=== PATIENT | female | born 1955 | race Hispanic/Latino ===

== ENCOUNTER 2016-10-28 11:10 | Emergency (ER) | payer BC ==
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
[2016-10-28 14:37] VITALS: BP 148/76
--- NOTE | 2016-10-28 15:20 | XRay Report ---
FINAL REPORT EXAM: XR WRIST 3 RT HISTORY: injury 1 month ago, pain and swelling now COMPARISONS: None. FINDINGS: Three views right wrist No bone lesion, periosteal reaction, or fracture. Mild widening of the scapholunate interval. IMPRESSION: Mild widening of the scapholunate interval, which may correspond to ligamentous injury.
== END 2016-10-28 16:26 | disposition home or self-care (01) ==
LOC: ED 11:10
DX: S63.91XA Sprain of unspecified part of right wrist and hand, initial encounter (principal); I10 Essential (primary) hypertension; G43.909 Migraine, unspecified, not intractable, without status migrainosus; F17.200 Nicotine dependence, unspecified, uncomplicated; Z86.19 Personal history of other infectious and parasitic diseases; Z91.048 Other nonmedicinal substance allergy status; X58.XXXA Exposure to other specified factors, initial encounter; Y93.89 Activity, other specified; Y92.89 Other specified places as the place of occurrence of the external cause; Y99.8 Other external cause status

== ENCOUNTER 2017-07-17 04:30 | Emergency (ER) | payer SELFPAY ==
--- NOTE | 2017-07-17 05:42 | XRay Report ---
FINAL REPORT EXAM: XR FOOT 3+V LT HISTORY: pain and swelling L foot/ankle TECHNIQUE: Three views of the left foot were submitted. FINDINGS: There is osteoporosis. There no evidence of fracture or dislocation. Is a very small posterior calcaneal spur. The soft tissues are unremarkable. IMPRESSION: No evidence of acute injury. Very small posterior calcaneal spur.
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
[2017-07-17] MEDS ORDERED: PERCOCET 5/325 PO ONE (07:33)
[2017-07-17 07:46] LABS: Basophils % (Auto) 0.3 % (0.0-1.8); Hematocrit 39.9 % (30.3-42.9); Hemoglobin 13.7 gm/dl (10.1-14.3); Lymphocytes # (Auto) 1.6 K/mm3 (1.2-5.4); Lymphocytes % (Auto) 12.8 % (13.4-35.0); Mean Corpuscular HGB Conc 34 % (30-34); Mean Corpuscular Hemoglobin 34 pg (28-32); Mean Corpuscular Volume 99 fl (79-97); Monocytes # (Auto) 0.9 K/mm3 (0.0-0.8); Monocytes % (Auto) 7.3 % (0.0-7.3); Platelet Count 143 K/mm3 (140-440); Red Blood Count 4.01 M/mm3 (3.65-5.03); Red Cell Distribution Width 12.6 % (13.2-15.2)
[2017-07-17 07:57] LABS: INR 0.95 (0.87-1.13)
[2017-07-17 07:58] LABS: Partial Thromboplastin Time 30.6 Sec. (24.2-36.6)
[2017-07-17 10:05] VITALS: BP 118/60
== END 2017-07-17 10:04 | disposition home or self-care (01) ==
LOC: ED 04:30
DX: L03.116 Cellulitis of left lower limb (principal); I10 Essential (primary) hypertension; G43.909 Migraine, unspecified, not intractable, without status migrainosus; F17.200 Nicotine dependence, unspecified, uncomplicated; Z88.8 Allergy status to other drugs, medicaments and biological substances
CPT/HCPCS: 36415; 85025; 85610; 85730; 99285

== ENCOUNTER 2018-01-18 01:45 | Emergency (ER) | payer SELFPAY ==
[2018-01-18 05:07] VITALS: BP 129/75
[2018-01-18] MEDS ORDERED: TORADOL IM ONE (06:12)
[2018-01-18] MEDS ORDERED: KEFLEX PO ONE (06:12)
[2018-01-18] MEDS ORDERED: BACTRIM DS PO ONE (06:12)
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
== END 2018-01-18 06:38 | disposition home or self-care (01) ==
LOC: ED 01:45
DX: L03.116 Cellulitis of left lower limb (principal); G89.29 Other chronic pain; M54.2 Cervicalgia; I10 Essential (primary) hypertension; G43.909 Migraine, unspecified, not intractable, without status migrainosus; F17.200 Nicotine dependence, unspecified, uncomplicated; Z86.19 Personal history of other infectious and parasitic diseases; Z91.041 Radiographic dye allergy status
CPT/HCPCS: 73620; 96372; 99283; J1885

== ENCOUNTER 2018-05-17 05:56 | Emergency (ER) | payer BC, OTHER ==
[2018-05-17 06:22] VITALS: BP 108/55
[2018-05-17 06:55] LABS: Bilirubin,Urine NEG (Negative); Blood,Urine MOD (Negative); Color,Urine Yellow (Yellow); Protein,Urine <15 mg/dL mg/dL (Negative); Urobilinogen,Urine < 2.0 mg/dL (<2.0)
[2018-05-17] MEDS ORDERED: ALUM-MAG HYDROX-SIMETH 200-200-20MG/5ML PO ONE (07:49)
[2018-05-17 07:55] LABS: Alanine Aminotransferase 8 units/L (7-56); Albumin 4.2 g/dL (3.9-5); BUN/Creatinine Ratio 20; Blood Urea Nitrogen 8 mg/dL (7-17); Calcium 8.4 mg/dL (8.4-10.2); Hemolysis Index 4
[2018-05-17 08:26] LABS: Basophils % (Auto) 0.5 % (0.0-1.8); Eosinophils # (Auto) 0.1 K/mm3 (0.0-0.4); Hematocrit 38.4 % (30.3-42.9); Lymphocytes # (Auto) 2.7 K/mm3 (1.2-5.4); Lymphocytes % (Auto) 38.8 % (13.4-35.0); Mean Corpuscular HGB Conc 34 % (30-34); Mean Corpuscular Volume 100 fl (79-97); Monocytes # (Auto) 0.4 K/mm3 (0.0-0.8); Platelet Count 175 K/mm3 (140-440); Red Blood Count 3.84 M/mm3 (3.65-5.03); Red Cell Distribution Width 12.8 % (13.2-15.2)
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
== END 2018-05-17 09:23 | disposition home or self-care (01) ==
LOC: ED 05:56
DX: K52.9 Noninfective gastroenteritis and colitis, unspecified (principal); G43.909 Migraine, unspecified, not intractable, without status migrainosus; I10 Essential (primary) hypertension; F17.200 Nicotine dependence, unspecified, uncomplicated; Z91.041 Radiographic dye allergy status
CPT/HCPCS: 36415; 80053; 81001; 85025; 99283

== ENCOUNTER 2018-10-26 10:01 | Emergency (ER) | payer BC ==
[2018-10-26] MEDS ORDERED: NORCO 10/325 PO ONE (12:56)
[2018-10-26 13:30] LABS: Basophils % (Auto) 0.3 % (0.0-1.8); Hematocrit 39.8 % (30.3-42.9); Hemoglobin 13.8 gm/dl (10.1-14.3); Lymphocytes # (Auto) 1.4 K/mm3 (1.2-5.4); Lymphocytes % (Auto) 13.9 % (13.4-35.0); Mean Corpuscular HGB Conc 35 % (30-34); Mean Corpuscular Volume 98 fl (79-97); Monocytes # (Auto) 0.8 K/mm3 (0.0-0.8); Monocytes % (Auto) 8.1 % (0.0-7.3); Platelet Count 171 K/mm3 (140-440); Red Blood Count 4.07 M/mm3 (3.65-5.03); Red Cell Distribution Width 12.7 % (13.2-15.2)
[2018-10-26 13:36] LABS: BUN/Creatinine Ratio 8; Blood Urea Nitrogen 5 mg/dL (7-17); Calcium 9.1 mg/dL (8.4-10.2); Hemolysis Index 16; Uric Acid 2.8 mg/dL (3.5-7.6)
[2018-10-26] MEDS ORDERED: CLEOCIN PO ONE (13:46)
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
[2018-10-26 14:12] VITALS: BP 145/80
== END 2018-10-26 14:12 | disposition home or self-care (01) ==
LOC: ED 10:01
DX: L03.115 Cellulitis of right lower limb (principal); I10 Essential (primary) hypertension; G43.909 Migraine, unspecified, not intractable, without status migrainosus; B19.20 Unspecified viral hepatitis C without hepatic coma; F17.200 Nicotine dependence, unspecified, uncomplicated; Z88.8 Allergy status to other drugs, medicaments and biological substances; Z79.899 Other long term (current) drug therapy
CPT/HCPCS: 36415; 80048; 82140; 84550; 85025; 99283

== ENCOUNTER 2019-06-04 18:42 | Emergency (ER) | payer BC ==
[2019-06-04 20:26] LABS: Basophils % (Auto) 0.4 % (0.0-1.8); Eosinophils # (Auto) 0.5 K/mm3 (0.0-0.4); Eosinophils % (Auto) 5.9 % (0.0-4.3); Hematocrit 34.2 % (30.3-42.9); Hemoglobin 11.8 gm/dl (10.1-14.3); Lymphocytes # (Auto) 2.5 K/mm3 (1.2-5.4); Lymphocytes % (Auto) 32.8 % (13.4-35.0); Mean Corpuscular HGB Conc 34 % (30-34); Mean Corpuscular Volume 97 fl (79-97); Monocytes # (Auto) 0.6 K/mm3 (0.0-0.8); Monocytes % (Auto) 7.8 % (0.0-7.3); Platelet Count 167 K/mm3 (140-440); Red Blood Count 3.51 M/mm3 (3.65-5.03); Red Cell Distribution Width 13.3 % (13.2-15.2)
[2019-06-04 20:44] LABS: BUN/Creatinine Ratio 12; Blood Urea Nitrogen 7 mg/dL (7-17); Calcium 8.9 mg/dL (8.4-10.2); Hemolysis Index 1
--- NOTE | 2019-06-04 21:26 | Emergency Department Report ---
Blank Doc - Documentation Documentation: 63-year-old female that presents with dark colored diarrhea and weakness. This initial assessment/diagnostic orders/clinical plan/treatment(s) is/are subject to change based on patient's health status, clinical progression and re- assessment by fellow clinical providers in the ED. Further treatment and workup at subsequent clinical providers discretion. Patient/guardians urged not to elope from the ED as their condition may be serious if not clinically assessed and managed. Initial orders include: 1- Patient sent to MAIN ED for further evaluation and treatment 2- labs 3- UA 4- XR and
[2019-06-04 22:00] LABS: Alanine Aminotransferase 16 units/L (7-56)
[2019-06-04 22:12] LABS: Bilirubin,Direct < 0.2 mg/dL (0-0.2); INR 1.09 (0.87-1.13)
[2019-06-04 22:22] LABS: Partial Thromboplastin Time 34.1 Sec. (24.2-36.6)
--- NOTE | 2019-06-04 22:27 | XRay Report ---
Abdominal radiograph series with PA chest radiograph INDICATION / CLINICAL INFORMATION: Generalized abdominal pain. Dark stools for 3 weeks. COMPARISON: None. FINDINGS: TUBES / LINES: None. BOWEL GAS PATTERN: The bowel gas pattern appears nonobstructive. ADDITIONAL FINDINGS: Evaluation of bony structures demonstrates no evidence of acute bony abnormality . The accompanying chest radiograph demonstrates no evidence of acute cardiopulmonary process. IMPRESSION: 1. No radiographic evidence of acute intra-abdominal process. Signer Name: Елена Estrada MD Signed: 06/04/2019 10:23 PM Workstation Name: [id number]
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
[2019-06-05 00:36] VITALS: BP 102/60
== END 2019-06-05 00:37 | disposition home or self-care (01) ==
LOC: ED 18:42
DX: K92.1 Melena (principal); R19.7 Diarrhea, unspecified; I10 Essential (primary) hypertension; G43.909 Migraine, unspecified, not intractable, without status migrainosus; Z98.890 Other specified postprocedural states; F17.200 Nicotine dependence, unspecified, uncomplicated; Z79.1 Long term (current) use of non-steroidal anti-inflammatories (NSAID); Z79.899 Other long term (current) drug therapy; Z91.048 Other nonmedicinal substance allergy status
CPT/HCPCS: 36415; 74022; 80048; 80076; 83690; 83735; 85025; 85610; 85730

== ENCOUNTER 2020-07-20 18:41 | Inpatient (IN) | payer BC ==
[2020-07-20] MEDS ORDERED: DEXTROSE 50% IN WATER (25GM) 50 ML SYRINGE IV ONE ×2 (19:19→19:20)
[2020-07-20] MEDS ORDERED: DEXTROSE 50% IN WATER (25GM) 50 ML VIAL IV ONE (19:22)
[2020-07-20] MEDS ORDERED: SODIUM CHLORIDE 0.9% 1000 ML IV SOLN IV ONE (19:23)
--- NOTE | 2020-07-20 19:30 | Emergency Department Report ---
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 ng/mL CK-MB (CK-2) Rel Index (0-4) Troponin T (0.00-0.029) ng/mL C-Reactive Protein (0.00-1.30) mg/dL Total Protein (6.3-8.2) g/dL Albumin (3.9-5) g/dL Albumin/Globulin Ratio % Procalcitonin 40.67 (<0.15) ng/mL TSH (0.270-4.200) mlU/mL Free T4 (0.76-1.46) ng/dL Arterial Blood Glucose (65-95) mg/dL Arterial Blood Ionized Calcium (4.6-5.3) mg/dL Urine Color (Yellow) Urine Turbidity (Clear) Urine pH (5.0-7.0) Ur Specific [place] (1.003-1.030) Urine Protein (Negative) mg/dL Urine Glucose (UA) (Negative) mg/dL Urine Ketones (Negative) mg/dL Urine Blood (Negative) Urine Nitrite (Negative) Urine Bilirubin (Negative) Urine Urobilinogen (<2.0) mg/dL Ur Leukocyte Esterase (Negative) Urine WBC (Auto) (0.0-6.0) /HPF Urine RBC (Auto) (0.0-6.0) /HPF U Epithel Cells (Auto) (0-13.0) /HPF Urine WBC Clumps /HPF Urine Mucus /HPF Urine Yeast (Budding) /HPF Urine Opiates Screen Urine Methadone Screen Ur Barbiturates Screen Ur Phencyclidine Scrn Ur Amphetamines Screen U Benzodiazepines Scrn Urine Cocaine Screen U Marijuana (THC) Screen Drugs of Abuse Note - EKG Data -: EKG Interpreted by Me EKG shows normal: sinus rhythm Rate: normal - Radiology Data Radiology results: report reviewed CHEST 1 VIEW INDICATION: hypothermia, ams. COMPARISON: 06/04/2019 FINDINGS: Support devices: None. Heart: Normal. Lungs/Pleura: There are diffuse reticular/interstitial opacities bilaterally. No pleural abnormality. IMPRESSION: 1. Diffuse reticular/interstitial opacities, new since the prior. These are nonspecific but could be seen in the setting of interstitial edema. Lower airways disease could have this appearance. Follow-up is recommended. CT HEAD WITHOUT CONTRAST INDICATION / CLINICAL INFORMATION: Altered mental status TECHNIQUE: All CT scans at this location are performed using CT dose reduction for [employer] by means of automated exposure control. COMPARISON: Head CT 11/17/2011 FINDINGS: HEMORRHAGE: No evidence of intracranial hemorrhage or extra-axial fluid collection. EXTRA-AXIAL SPACES: Cortical sulci, sylvian fissures and basilar cisterns have an unremarkable appearance. VENTRICULAR SYSTEM: The third and lateral ventricles are of normal size and configuration. CEREBRAL PARENCHYMA: There is a region of decreased brain parenchymal attenuation in the inferior lateral aspect of the right occipital lobe. This is a new finding compared to baseline study performed about 9 years prior to this examination. There is relative sparing of the adjacent cortex. This could represent an area of vasogenic edema and follow-up examination to include MRI brain without and with contrast is therefore advised. There is no significant mass effect associated with this finding. No additional areas of abnormal brain parenchymal attenuation are identified. MIDLINE SHIFT OR HERNIATION: There is no mass effect. CEREBELLUM / BRAINSTEM: Brainstem and cerebellum have an unremarkable appearance. MIDLINE STRUCTURES:No abnormalities of the pituitary gland or pineal region are identified. INTRACRANIAL VESSELS:No abnormalities are identified on this noncontrast head CT. ORBITS: visualized portions of the orbits have an unremarkable appearance. SOFT TISSUES of HEAD: No significant abnormality. CALVARIUM: Evaluation of bone windows reveals no abnormalities. PARANASAL SINUSES / MASTOID AIR CELLS: Visualized portions of the paranasal sinuses are free from inflammatory mucosal disease. Mastoid air cells are normally pneumatized. ADDITIONAL FINDINGS: None. IMPRESSION: 1. Small region of decreased brain parenchymal attenuation is observed along the inferolateral aspect of the right occipital lobe as described above. There is sparing of the adjacent cortex. This could represent an area of encephalomalacia but small area of vasogenic edema cannot be excluded and follow-up examination to include MRI brain without and with intravenous contrast is recommended. 2. No additional abnormalities on head CT without contrast. CT CERVICAL SPINE WITHOUT CONTRAST INDICATION / CLINICAL INFORMATION: ams, signs of head trauma. TECHNIQUE: Axial CT images were obtained through the cervical spine. Sagittal and coronal reformatted images were produced. All CT scans at this location are performed using CT dose reduction for ALARA by means of automated exposure control. COMPARISON: None available. FINDINGS: ALIGNMENT: Grade 1 spondylolisthesis is present at the C4-5 level. Milder grade 1 spondylolisthesis is present at the C7-T1 level. There is a kyphotic curvature in the cervical region. No additional abnormalities of alignment are identified. There is no indication of traumatic subluxation. VERTEBRAE: No indication of fracture or bone destruction DISC SPACES: Disc height is decreased at the 4 5, C5-6 and C6-7 levels. INDIVIDUAL LEVEL ANALYSIS: C2-3: Left worse than right facet arthropathy is noted. This is associated with moderate left C3 nerve root neuroforaminal C3-4: Left worse than right facet arthropathy is demonstrated. Central spinal canal and neuroforamina are adequately maintained. C4-5: Left worse than right facet arthropathy is noted. Degenerative spondylolisthesis is observed at this level. Moderate right-sided C5 nerve root neuroforaminal stenosis is evident. Central spinal canal and right C5 nerve root neuroforamina are adequately maintained. C5-6: Near complete loss of disc height is noted. Anterior osteophyte formation is observed. Mild posterior osteophyte is present. Vertebral arthropathy contributes to moderate bilateral foraminal narrowing at the C6 nerve root level. Central spinal canal is adequately maintained. C6-7: Advanced disc desiccation is noted. Bilateral uncovertebral arthropathy contributes to severe left-sided and moderate right-sided neuroforaminal stenosis at the C7 nerve root level. C7-T1: Lateral facet arthropathy is demonstrated. Grade 1 spondylolisthesis is observed. Central spinal canal remains adequate in size. Moderate bilateral neuroforaminal stenosis is evident. CRANIOCERVICAL JUNCTION:No significant abnormality. SPINAL CANAL: Central spinal canal is adequately maintained throughout. PARASPINAL SOFT TISSUES: No significant abnormality. LUNG APICES: Disc changes are present at both lung apices. In addition interstitial edema, infiltrate or fibrotic changes seen in the lateral aspect of the right upper lobe. IMPRESSION: 1. No indication of fracture or traumatic subluxation. 2. Widespread cervical spondylosis with multifocal neuroforaminal stenosis as described level by level above. - Medical Decision Making 65-year-old female presents to the hospital with alteration in mental status. states that patient has not had much p.o. intake for last several days and has not felt well since receiving her second Covid shot 2 days ago. Patient presents with signs of severe sepsis with hypotension, hypothermia as well as hypoglycemia. Patient received 1 amp of D50 and glucose appeared to be stable during ED stay. Patient not have response in blood pressure despite 30 mL/kg bolus of normal saline in therefore central line placed and Levophed initiated to maintain MAP greater than 65. Additional NS bolus orderd. Patient did receive ketamine and Versed in the ED for some mild sedation for cooperation of procedures. She also required supplemental nasal cannula oxygenation for hypoxia. Labs suggest acute renal failure secondary to dehydration, severe sepsis with septic shock secondary to UTI. Chest x-ray abnormalities also noted and therefore Covid order set also initiated. Patient placed in respiratory isolation until Covid can be ruled out. Decadron also provided for hypoxia. Case discussed with school coordinator who recommended 3 Amps of bicarb followed by bicarb drip for severe acidosis and acute renal failure. Case discussed with critical care attending who recommended aggressive continued IV hydration with normal saline due to significant dehydration. ID consult ordered. Cefepime provided for UTI. Cultures pending. Family updated about critical patient status and is currently a full code alternative contact provided by . Imaging results noted. Critical Care Time: Yes Critical care time in (mins) excluding proc time.: 90 Critical care attestation.: If time is entered above; I have spent that time in minutes in the direct care of this critically ill patient, excluding procedure time. ED Disposition Clinical Impression: Septic shock, Altered mental status, UTI (urinary tract infection), Lung infiltrate, Hypoxia, Metabolic acidosis, Acute renal failure, Dehydration, Elevated CK, Hypoglycemia, Hypothermia, Hyperkalemia Disposition: OP ADMIT IP TO THIS HOSP Is pt being admited?: Yes Condition: Stable Time of Disposition: 22:40 (Dr Olson/hosp)
[2020-07-20 19:54] LABS: Hemoglobin 12.6 gm/dl (10.1-14.3); Red Blood Count 3.77 M/mm3 (3.65-5.03)
[2020-07-20 19:55] LABS: Basophils % (Auto) 1.7 % (0.0-1.8); Eosinophils # (Auto) 0.3 K/mm3 (0.0-0.4); Eosinophils % (Auto) 1.8 % (0.0-4.3); Hematocrit 38.4 % (30.3-42.9); Lymphocytes # (Auto) 0.8 K/mm3 (1.2-5.4); Lymphocytes % (Auto) 4.4 % (13.4-35.0); Mean Corpuscular HGB Conc 33 % (30-34); Mean Corpuscular Volume 102 fl (79-97); Monocytes # (Auto) 0.4 K/mm3 (0.0-0.8); Monocytes % (Auto) 2.1 % (0.0-7.3); Platelet Count 189 K/mm3 (140-440); Red Cell Distribution Width 14.3 % (13.2-15.2)
[2020-07-20 19:56] LABS: Basophils # (Auto) 0.3 K/mm3 (0.0-0.1)
[2020-07-20 19:58] LABS: INR 1.72 (0.87-1.13); Partial Thromboplastin Time 33.7 Sec. (24.2-36.6)
[2020-07-20 20:13] LABS: Albumin 3.3 g/dL (3.9-5); Calcium 7.4 mg/dL (8.4-10.2)
[2020-07-20] MEDS ORDERED: KETAMINE 500 MG/5 ML VIAL MDV ONE (20:13)
[2020-07-20 20:18] LABS: Amphetamine Screen,Urine Negative; Cannabinoid Screen,Urine Negative; Cocaine Screen,Urine Negative; Methadone Screen,Urine Negative
[2020-07-20 20:20] LABS: Bilirubin,Urine NEG (Negative); Blood,Urine MOD (Negative); Color,Urine Yellow (Yellow); Mucus,Urine FEW /HPF; Urobilinogen,Urine < 2.0 mg/dL (<2.0)
[2020-07-20 20:23] LABS: Free T4 (Free Thyroxine) 0.87 ng/dL (0.76-1.46)
--- NOTE | 2020-07-20 20:24 | XRay Report ---
CHEST 1 VIEW INDICATION: hypothermia, ams. COMPARISON: 06/04/2019 FINDINGS: Support devices: None. Heart: Normal. Lungs/Pleura: There are diffuse reticular/interstitial opacities bilaterally. No pleural abnormality. IMPRESSION: 1. Diffuse reticular/interstitial opacities, new since the prior. These are nonspecific but could be seen in the setting of interstitial edema. Lower airways disease could have this appearance. Follow-u p is recommended. Signer Name: Jeff Davies MD Signed: 07/20/2020 8:19 PM Workstation Name: [id number]
[2020-07-20 20:34] LABS: Benzodiazepines Screen,Urine Positive; Opiate Screen,Urine Positive
[2020-07-20] MEDS ORDERED: KETAMINE 500 MG/5 ML VIAL MDV IV ONE (20:37)
[2020-07-20 20:38] LABS: WBC,Urine > 182.0 /HPF (0.0-6.0)
[2020-07-20] MEDS ORDERED: SODIUM CHLORIDE 0.9% 1000 ML 1,000 ML IV ONE ×2 (20:38→22:02)
[2020-07-20] MEDS ORDERED: LORazepam 2 MG/ML VIAL ONE (20:41)
[2020-07-20] MEDS ORDERED: CEFEPIME/NS 2 GM/100 ML 2 GM/100 ML BAG IV ONE (20:41)
[2020-07-20] MEDS ORDERED: SODIUM BICARB 8.4% 50 MEQ/50 ML SYRINGE IV ONE ×4 (20:48→21:47)
[2020-07-20] MEDS ORDERED: DEXTROSE 5% IN WATER 1,000 ML with SODIUM BICARBONATE 150 MEQ IV SCH (21:00)
[2020-07-20] MEDS ORDERED: MIDAZOLAM 5 MG/5 ML INJ MDV IV NR (21:00)
--- NOTE | 2020-07-20 21:25 | Event Note ---
Date: 07/20/[address] Ferro Patient presents with altered mental status and hypotension/shock Vitals and labs reviewed Suspect hypovolemia/dehydration is a component of the clinical picture + sepsis Recommend IV bicarb push 50 mEq 3 Start sodium bicarb drip 150 meq at 150 cc/h ( continue LR or NS until bicarb drip is available) Vasopressors prn to keep MAP > 65 Continue bloom, reportedly making urine Calcium gluconate 1g 1 Recheck ABG and BMP in 2 hours, further recommendations to be based on response to current management plan Blanca Orozco MD
[2020-07-20] MEDS ORDERED: CALCIUM GLUCONATE 1,000 MG in SODIUM CHLORIDE 0.9% 100 ML IV ONE (21:30)
--- NOTE | 2020-07-20 21:33 | Cat Scan Report ---
CT HEAD WITHOUT CONTRAST INDICATION / CLINICAL INFORMATION: Altered mental status TECHNIQUE: All CT scans at this location are performed using CT dose reduction for [employer] by means of automated e xposure control. COMPARISON: Head CT 11/17/2011 FINDINGS: HEMORRHAGE: No evidence of intracranial hemorrhage or extra-axial fluid collection. EXTRA-AXIAL SPACES: Cortical sulci, sylvian fissures and basilar cisterns have an unremarkable appear ance. VENTRICULAR SYSTEM: The third and lateral ventricles are of normal size and configuration. CEREBRAL PARENCHYMA: There is a region of decreased brain parenchymal attenuation in the inferior lat eral aspect of the right occipital lobe. This is a new finding compared to baseline study performed a bout 9 years prior to this examination. There is relative sparing of the adjacent cortex. This could represent an area of vasogenic edema and follow-up examination to include MRI brain without and with contrast is therefore advised. There is no significant mass effect associated with this finding. No a dditional areas of abnormal brain parenchymal attenuation are identified. MIDLINE SHIFT OR HERNIATION: There is no mass effect. CEREBELLUM / BRAINSTEM: Brainstem and cerebellum have an unremarkable appearance. MIDLINE STRUCTURES:No abnormalities of the pituitary gland or pineal region are identified. INTRACRANIAL VESSELS:No abnormalities are identified on this noncontrast head CT. ORBITS: visualized portions of the orbits have an unremarkable appearance. SOFT TISSUES of HEAD: No significant abnormality. CALVARIUM: Evaluation of bone windows reveals no abnormalities. PARANASAL SINUSES / MASTOID AIR CELLS: Visualized portions of the paranasal sinuses are free from inf lammatory mucosal disease. Mastoid air cells are normally pneumatized. ADDITIONAL FINDINGS: None. IMPRESSION: 1. Small region of decreased brain parenchymal attenuation is observed along the inferolateral aspect of the right occipital lobe as described above. There is sparing of the adjacent cortex. This could represent an area of encephalomalacia but small area of vasogenic edema cannot be excluded and follow -up examination to include MRI brain without and with intravenous contrast is recommended. 2. No additional abnormalities on head CT without contrast. Signer Name: Nacho Underwood MD Signed: 07/20/2020 9:28 PM Workstation Name: [id number]
[2020-07-20] MEDS: NORepinephrine/NS 4 MG-250 ML 4 MG/250 ML BAG IV SCH (21:38)
--- NOTE | 2020-07-20 21:38 | Cat Scan Report ---
CT CERVICAL SPINE WITHOUT CONTRAST INDICATION / CLINICAL INFORMATION: ams, signs of head trauma. TECHNIQUE: Axial CT images were obtained through the cervical spine. Sagittal and coronal reformatted images wer e produced. All CT scans at this location are performed using CT dose reduction for [employer] by means of automated exposure control. COMPARISON: None available. FINDINGS: ALIGNMENT: Grade 1 spondylolisthesis is present at the C4-5 level. Milder grade 1 spondylolisthesis i s present at the C7-T1 level. There is a kyphotic curvature in the cervical region. No additional abn ormalities of alignment are identified. There is no indication of traumatic subluxation. VERTEBRAE: No indication of fracture or bone destruction DISC SPACES: Disc height is decreased at the 4 5, C5-6 and C6-7 levels. INDIVIDUAL LEVEL ANALYSIS: C2-3: Left worse than right facet arthropathy is noted. This is associated with moderate left C3 nerv e root neuroforaminal C3-4: Left worse than right facet arthropathy is demonstrated. Central spinal canal and neuroforamina are adequately maintained. C4-5: Left worse than right facet arthropathy is noted. Degenerative spondylolisthesis is observed at this level. Moderate right-sided C5 nerve root neuroforaminal stenosis is evident. Central spinal ca nal and right C5 nerve root neuroforamina are adequately maintained. C5-6: Near complete loss of disc height is noted. Anterior osteophyte formation is observed. Mild pos terior osteophyte is present. Vertebral arthropathy contributes to moderate bilateral foraminal narro wing at the C6 nerve root level. Central spinal canal is adequately maintained. C6-7: Advanced disc desiccation is noted. Bilateral uncovertebral arthropathy contributes to severe l eft-sided and moderate right-sided neuroforaminal stenosis at the C7 nerve root level. C7-T1: Lateral facet arthropathy is demonstrated. Grade 1 spondylolisthesis is observed. Central spin al canal remains adequate in size. Moderate bilateral neuroforaminal stenosis is evident. CRANIOCERVICAL JUNCTION:No significant abnormality. SPINAL CANAL: Central spinal canal is adequately maintained throughout. PARASPINAL SOFT TISSUES: No significant abnormality. LUNG APICES: Disc changes are present at both lung apices. In addition interstitial edema, infiltrate or fibrotic changes seen in the lateral aspect of the right upper lobe. IMPRESSION: 1. No indication of fracture or traumatic subluxation. 2. Widespread cervical spondylosis with multifocal neuroforaminal stenosis as described level by tor guthrie above. Signer Name: Nacho Underwood MD Signed: 07/20/2020 9:34 PM Workstation Name: [id number]
[2020-07-20] MEDS ORDERED: dexAMETHasone 4 MG/ML VIAL IV ONE (22:00)
[2020-07-20] MEDS ORDERED: ACETAMINOPHEN 325 MG TAB PO PRN (22:51)
[2020-07-20] MEDS ORDERED: ACETAMINOPHEN 325 MG/10.15 ML ORAL LIQD UNIT DOSE FEEDTUBE PRN (22:51)
[2020-07-20] MEDS ORDERED: HYDROmorphone 1 MG/1 ML INJ IV PRN (22:51)
[2020-07-20] MEDS ORDERED: METOCLOPRAMIDE 10 MG/2 ML INJ IV PRN (22:51)
[2020-07-20] MEDS ORDERED: ONDANSETRON 4 MG/2 ML INJ IV PRN (22:51)
[2020-07-20] MEDS ORDERED: VANCOMYCIN 1,000 MG in SODIUM CHLORIDE 0.9% 500 ML 500 ML IV ONE (22:51)
[2020-07-20 22:55] LABS: C-Reactive Protein 37.9 mg/dL (0.00-1.30)
[2020-07-20] MEDS ORDERED: CEFEPIME/NS 2 GM/100 ML 2 GM/100 ML BAG IV SCH (23:00)
[2020-07-20] MEDS ORDERED: D5W/0.9% NACL 1,000 ML IV SCH (23:00)
[2020-07-20] MEDS ORDERED: VANCOMYCIN PHARMACY TO DOSE IV SCH (23:00)
--- NOTE | 2020-07-20 23:10 | History and Physical Report ---
History of Present Illness Date of examination: 07/20/20 Date of admission: 07/20/20 Chief complaint: Altered mental status History of present illness: 65-year-old female with a past medical history hepatitis C, hypertension, migraines was brought to the hospital because of altered mental status. Patient is altered and unable to provide any history of present illness therefore for EMS history obtained from family as only information available at this time. patient has been progressively worsening since receiving her second Covid 2 days ago. Patient apparently has been having a fever on and off. She was found laying on the floor by family members today. Patient presents altered, agitated with bruising to head and torso. She is unable to answer questions or follow commands. Accu-Chek obtained after patient arrival was 55. Patient also noted to be hypothermic and hypotensive. The emergency room patient is found to have sepsis WBC 17.9 also D-dimer shows 2098, ABG shows pH is 7.016 PCO2 36.8 PO2 55.7 bicarb 9.2, lactic acid 3.[place] [address] BUN 108 and creatinine 7.7 and potassium 5.6 Patient is Yunior Diaz's [phone] cell number is on the chart. He also requests if we are unable to contact him that we contact the family friend friend Cecilia Bran at [phone] who can also help reach him if needed Past History Past Medical History: hepatitis, hypertension Medications and Allergies Allergies Allergy/AdvReac Type Severity Reaction Status Date / Time Iodine and Iodide Containing AdvReac Rash Verified 10/26/18 10:10 Produc Home Medications Medication Instructions Recorded Confirmed Last Taken Type Ondansetron [Zofran TAB] 4 mg PO Q8HR PRN #15 tablet 07/17/17 Unknown Rx Ibuprofen [Motrin 600 MG tab] 600 mg PO Q8H PRN #30 tablet 01/18/18 Unknown Rx Sulfamethoxazole/Trimethoprim 1 each PO BID 10 Days #20 tablet 01/18/18 Unknown Rx [Bactrim DS TAB] cephALEXin [Keflex] 500 mg PO Q12HR #20 capsule 01/18/18 Unknown Rx Famotidine [Pepcid] 20 mg PO BID #10 tablet 05/17/18 Unknown Rx Mag Hydrox/Aluminum Hyd/Simeth 15 ml PO QID #1 oral.susp 05/17/18 Unknown Rx [Maalox Advanced Suspension] Ondansetron [Zofran ODT TAB] 8 mg PO Q12HR #20 tab.rapdis 05/17/18 Unknown Rx Acetaminophen/Codeine [Tylenol 1 tab PO Q6H PRN #12 tab 10/26/18 Unknown Rx /Codeine # 3 tab] Clindamycin [Clindamycin CAP] 300 mg PO Q8H #21 cap 10/26/18 Unknown Rx Esomeprazole Magnesium [NexIUM] 40 mg PO QDAY 20 Days #20 06/04/19 Unknown Rx capsule.dr Active Meds: Active Medications Acetaminophen (Acetaminophen 325 Mg Tab) 650 mg PO Q6H PRN PRN Reason: Pain, Mild (1-3) Acetaminophen (Acetaminophen 325 Mg/10.15 Ml Oral Liqd Unit Dose) 650 mg FEEDTUBE Q6H PRN PRN Reason: Pain MILD(1-3)/Fever >100.5/HESS Albuterol/Ipratropium (Ipratropium/Albuterol Sulfate 3 Ml Ampul.Neb) 1 ampul IH Q6HRT HONEY Famotidine (Famotidine 20 Mg/2 Ml Inj) 20 mg IV BID HONEY Hydromorphone HCl (Hydromorphone 1 Mg/1 Ml Inj) 0.25 mg IV Q4H PRN PRN Reason: Pain, Moderate (4-6) Norepinephrine (Levophed Drip 4 Mg/Ns 250 Ml) 4 mg in 250 mls @ 7.5 mls/hr IV TITR HONEY; Protocol Last Titration: 07/20/20 22:21 Dose: 15 mcg/min, 56.25 mls/hr Documented by: Sodium Chloride (Nacl 0.9% 1000 Ml) 1,000 mls @ 250 mls/hr IV ONCE ONE Stop: 07/21/20 00:37 Last Admin: 07/20/20 21:57 Dose: 250 mls/hr Documented by: Sodium Bicarbonate 150 meq/ (Dextrose) 1,150 mls @ 150 mls/hr IV DIRECT HONEY Vancomycin HCl 1,000 mg/ (Sodium Chloride) 520 mls @ 333 mls/hr IV Q12HRT ONE; Protocol Stop: 07/21/20 00:24 Dextrose/Sodium Chloride (D5ns) 1,000 mls @ 100 mls/hr IV DIRECT HONEY Metoclopramide HCl (Metoclopramide 10 Mg/2 Ml Inj) 10 mg IV Q6H PRN PRN Reason: Nausea And Vomiting Midazolam HCl (Midazolam 5 Mg/5 Ml Inj Mdv) 1 mg IV ONCE NR Stop: 07/20/20 23:59 Sodium Chloride (Sodium Chloride 0.9% 10 Ml Flush Syringe) 10 ml IV BID HONEY Sodium Chloride (Sodium Chloride 0.9% 10 Ml Flush Syringe) 10 ml IV PRN PRN PRN Reason: LINE FLUSH Review of Systems Constitutional: fever, chills, fatigue, weakness, lethargy Psychiatric: confusion Exam - Constitutional Vitals: Temp Pulse Resp BP Pulse Ox 88.4 F L 76 12 77/55 92 07/20/20 19:52 07/20/20 22:19 07/20/20 22:19 07/20/20 22:19 07/20/20 22:19 General appearance: Present: severe distress - EENT Eyes: Present: PERRL ENT: hearing intact, clear oral mucosa - Neck Neck: Present: supple, normal ROM - Respiratory Respiratory effort: normal Respiratory: bilateral: diminished - Cardiovascular Heart Sounds: Present: S1 & S2. Absent: rub, click - Extremities Extremities: pulses symmetrical, No edema Peripheral Pulses: within normal limits - Abdominal General gastrointestinal: Present: soft, non-tender, non-distended, normal bowel sounds Female genitourinary: Present: normal - Integumentary Integumentary: Present: clear, warm, dry - Musculoskeletal Musculoskeletal: gait normal, strength equal bilaterally - Psychiatric Psychiatric: appropriate mood/affect, intact judgment & insight - Neurologic Neurologic: CNII-XII intact, moves all extremities HEART Score - HEART Score Troponin: Troponin T 0.026 ng/mL (0.00-0.029) 07/20/20 19:27 Results - Labs CBC & Chem 7: 07/20/20 19:27 07/20/20 21:59 Labs: Laboratory Last Values WBC 17.9 K/mm3 (4.5-11.0) H 07/20/20 19: RBC 3.77 M/mm3 (3.65-5.03) 07/20/20 19:27 Hgb 12.6 gm/dl (10.1-14.3) 07/20/20 19: Hct 38.4 % (30.3-42.9) 07/20/20 19:27 MCV 102 fl (79-97) H 07/20/20 19: MCH 33 pg (28-32) H 07/20/20 19: MCHC 33 % (30-34) 07/20/20 19: RDW 14.3 % (13.2-15.2) 07/20/20 19: Plt Count 189 K/mm3 (140-440) 07/20/20 19: Lymph % (Auto) 4.4 % (13.4-35.0) L 07/20/20 19: [place] % (Auto) 2.1 % (0.0-7.3) 07/20/20: Eos % (Auto) 1.8 % (0.0-4.3) 07/20/20: Baso % (Auto) 1.7 % (0.0-1.8) 07/20/20 19: Lymph # (Auto) 0.8 K/mm3 (1.2-5.4) L 07/20/20: [place] # (Auto) 0.4 K/mm3 (0.0-0.8) 07/20/20: Eos # (Auto) 0.3 K/mm3 (0.0-0.4) 07/20/20: Baso # (Auto) 0.3 K/mm3 (0.0-0.1) H 07/20/20 19: Seg Neutrophils % 90.0 % (40.0-70.0) H 07/20/20: Seg Neutrophils # 16.1 K/mm3 (1.8-7.7) H 07/20/20 19:27 PT 20.1 Sec. (12.2-14.9) H 07/20/20 19:32 INR 1.72 (0.87-1.13) H 07/20/20 19:32 APTT 33.7 Sec. (24.2-36.6) 07/20/20 19:32 D-Dimer 2098.49 ng/mlDDU (0-234) H 07/20/20 21:59 ABG pH 7.016 (7.320-7.450) L 07/20/20 19:59 POC ABG pCO2 36.8 mmHg (32.0-48.0) 07/20/20 19:59 POC ABG pO2 55.7 mmHg (83-108) L 07/20/20 19:59 POC ABG HCO3 9.2 07/20/20 19:59 ABG O2 Saturation 82.6 (0-100) 07/20/20 19:59 POC ABG Base Excess -20.9 07/20/20 19:59 ABG Hemoglobin 12.3 (12.0-17.5) 07/20/20 19:59 ABG Oxyhemoglobin 81.6 (94-98) L 07/20/20 19:59 ABG Methemoglobin 0.3 (0.0-1.5) 07/20/20 19:59 ABG Sodium 129.0 mmol/L (136.0-145.0) L 07/20/20 19:59 ABG Potassium 5.0 mmol/L (3.40-4.50) H 07/20/20 19:59 ABG Chloride 100.0 mmol/L (98-107) 07/20/20 19:59 ABG Glucose 157 mg/dL (65-95) H 07/20/20 19:59 Carboxyhemoglobin 0.9 (0.5-1.5) 07/20/20 19:59 FiO2 % 21.0 07/20/20 19:59 Sodium 130 mmol/L (137-145) L 07/20/20 19:27 Potassium 5.6 mmol/L (3.6-5.0) H 07/20/20 19:27 Chloride 84.4 mmol/L (98-107) L 07/20/20 19:27 Carbon Dioxide 14 mmol/L (22-30) L 07/20/20 19:27 Anion Gap 37 mmol/L 07/20/20 19:27 BUN 108 mg/dL (7-17) H 07/20/20 19:27 Creatinine 7.7 mg/dL (0.6-1.2) H 07/20/20 19:27 Estimated GFR 5 ml/min 07/20/20 19:27 BUN/Creatinine Ratio 14 % 07/20/20 19:27 Glucose 79 mg/dL (65-100) 07/20/20 21:59 POC Glucose 108 mg/dL (70-105) H 07/20/20 20:41 Lactic Acid 1.90 mmol/L (0.7-2.0) 07/20/20 21:59 Calcium 7.4 mg/dL (8.4-10.2) L 07/20/20 19:27 Ferritin 1648.0 ng/mL (10.0-200.0) H 07/20/20 21:59 Total Bilirubin 0.20 mg/dL (0.1-1.2) 07/20/20 19:27 AST 306 units/L (5-40) H 07/20/20 19:27 ALT 97 units/L (7-56) H 07/20/20 19:27 Alkaline Phosphatase 94 units/L (35-129) 07/20/20 19: Ammonia 50.0 umol/L (25-60) 07/20/20 19:27 Lactate Dehydrogenase 732 units/L (91-180) H 07/20/20 21:59 Total Creatine Kinase 66344 units/L (30-135) H 07/20/20 19:27 CK-MB (CK-2) 289.0 ng/mL (0.0-4.0) H 07/20/20 19:27 CK-MB (CK-2) Rel Index 2.0 (0-4) 07/20/20 19:27 Troponin T 0.026 ng/mL (0.00-0.029) 07/20/20 19:27 C-Reactive Protein 37.90 mg/dL (0.00-1.30) H 07/20/20 21:59 Total Protein 6.7 g/dL (6.3-8.2) 07/20/20 19: Albumin 3.3 g/dL (3.9-5) L 07/20/20 19:27 Albumin/Globulin Ratio 1.0 % 07/20/20 19:27 TSH 0.454 mlU/mL (0.270-4.200) 07/20/20 19: Free T4 0.87 ng/dL (0.76-1.46) 07/20/20 19:27 Arterial Blood Glucose 157 mg/dL (65-95) H 07/20/20 19:59 Arterial Blood Ionized Calcium 3.9 mg/dL (4.6-5.3) L 07/20/20 19:59 Urine Color Yellow (Yellow) 07/20/20 19:52 Urine Turbidity Turbid (Clear) 07/20/20 19:52 Urine pH 5.0 (5.0-7.0) 07/20/20 19:52 Ur Specific [place] 1.020 (1.003-1.030) 07/20/20 19:52 Urine Protein 100 mg/dl mg/dL (Negative) 07/20/20 19:52 Urine Glucose (UA) Neg mg/dL (Negative) 07/20/20 19:52 Urine Ketones Tr mg/dL (Negative) 07/20/20 19:52 Urine Blood Mod (Negative) 07/20/20 19:52 Urine Nitrite Neg (Negative) 07/20/20 19:52 Urine Bilirubin Neg (Negative) 07/20/20 19:52 Urine Urobilinogen < 2.0 mg/dL (<2.0) 07/20/20 19:52 Ur Leukocyte Esterase Lg (Negative) 07/20/20 19:52 Urine WBC (Auto) > 182.0 /HPF (0.0-6.0) H 07/20/20 19:52 Urine RBC (Auto) 31.0 /HPF (0.0-6.0) 07/20/20 19:52 U Epithel Cells (Auto) 1.0 /HPF (0-13.0) 07/20/20 19:52 Urine WBC Clumps 3+ /HPF 07/20/20 19:52 Urine Mucus Few /HPF 07/20/20 19:52 Urine Yeast (Budding) 3+ /HPF 07/20/20 19:52 Urine Opiates Screen Positive 07/20/20 19:52 Urine Methadone Screen Negative 07/20/20 19:52 Ur Barbiturates Screen Negative 07/20/20 19:52 Ur Phencyclidine Scrn Negative 07/20/20 19:52 Ur Amphetamines Screen Negative 07/20/20 19:52 U Benzodiazepines Scrn Positive 07/20/20 19:52 Urine Cocaine Screen Negative 07/20/20 19:52 U Marijuana (THC) Screen Negative 07/20/20 19:52 Drugs of Abuse Note Disclamer 07/20/20 19:52 Microbiology: Microbiology 07/20/20 19:32 Peripheral/Venous Blood Culture - Preliminary Culture in Progress 07/20/20 19:27 Peripheral/Venous Blood Culture - Preliminary Culture in Progress - Imaging and Cardiology Chest x-ray: image reviewed CT Scan - head: image reviewed Assessment and Plan VTE prophylaxis?: Chemical - Patient Problems (1) Acute renal failure Current Visit: Yes Status: Acute Plan to address problem: Admit the patient to the ICU. We put the patient on D5 normal saline at the rate of 100 cc/h. Avoid nephrotoxic drug. We will consult nephrology for further evaluation and treatment. Recheck CBC BMP in the morning (2) Elevated CK Current Visit: Yes Status: Acute Plan to address problem: Admit the patient to the ICU. We put the patient on D5 normal saline at the rate of 100 cc/h. Avoid nephrotoxic drug. We will recheck ck, CBC BMP in the morning (3) Hyperkalemia Current Visit: Yes Status: Acute Plan to address problem: Patient already get Kayexalate 30 g p.o. x1 dose. Will avoid nephrotoxic drug. Reconsult nephrology for evaluation recheck BMP in the morning (4) Hypoglycemia Current Visit: Yes Status: Acute Plan to address problem: We will put the patient on D5 normal saline at the rate of 100 cc/h. We will monitor the blood glucose every hour. Patient is on hypoglycemia protocol. Recheck BMP in the morning (5) Hypothermia Current Visit: Yes Status: Acute Plan to address problem: We will put the patient on warm blanket we monitor the temperature closely (6) Hypoxia Current Visit: Yes Status: Acute Plan to address problem: We will put the patient on 50% Ventimask. DuoNeb by nebulizer every 4 hours as needed. We will recheck the ABG in the morning we also consult critical care for evaluation. We also do a VQ scan rule out PE (7) Metabolic acidosis Current Visit: Yes Status: Acute Plan to address problem: Patient is on D5 normal saline at the rate of 100 cc/h. Patient is also on bicarb drip. Will consult critical care evaluation. Recheck BMP in the morning (8) UTI (urinary tract infection) Current Visit: Yes Status: Acute Plan to address problem: We will put the patient on cefepime 2 g IV every 8 hours. And vancomycin 1 g IV every 12 hours. We will do the blood culture urine culture and sputum culture. We we consulted infectious disease as well as critical care for evaluation. Recheck CBC BMP in the morning (9) Sepsis Current Visit: Yes Status: Acute Plan to address problem: We will put the patient on cefepime 2 g IV every 8 hours. And vancomycin 1 g IV every 12 hours. We will do the blood culture urine culture and sputum culture. We we consulted infectious disease as well as critical care for evaluation. Recheck CBC BMP in the morning (10) Acute metabolic encephalopathy Current Visit: Yes Status: Acute Plan to address problem: Admit the patient to the ICU. We will do MRI of the brain with and without contrast. We also put the patient on D5 normal saline at the rate of 100 cc/h . we will put the patient on cefepime 2 g IV every 8 hours. And vancomycin 1 g IV every 12 hours. We will do the blood culture urine culture and sputum culture. We we consulted infectious disease as well as critical care for evaluation. Recheck CBC BMP in the morning (11) Dehydration Current Visit: Yes Status: Acute Plan to address problem: D5 normal saline at the rate of 100 cc/h. Recheck BMP in the morning. (12) DVT prophylaxis Current Visit: Yes Status: Acute Plan to address problem: We will put the patient on heparin 5000 units subcu every 8 hours for DVT prophylaxis. Protonix 40 mils IV daily for GI prophylaxis. Patient is a full code
[2020-07-20] MEDS ORDERED: HEPARIN 5,000 UNIT/1 ML VIAL SUB-Q NR (23:30)
[2020-07-20] MEDS ORDERED: VANCOMYCIN/NS 1 GM/250 ML 1 GM/250 ML BAG IV ONE (23:45)
[2020-07-20] MEDS ORDERED: SODIUM POLYSTYRENE 15 GM/60 ML ORAL LIQD PO ONE (23:56)
[2020-07-20] MEDS ORDERED: PANTOPRAZOLE 40 MG INJ IV ONE (23:57)
--- NOTE | 2020-07-21 00:06 | Event Note ---
Date: 07/21/20 Labs not back yet. Called ER. Collection pending.
[2020-07-21 00:08] LABS: Calcium 6.3 mg/dL (8.4-10.2)
[2020-07-21] MEDS: FAMOTIDINE 20 MG/2 ML INJ IV SCH ×2 (00:22→10:41)
--- NOTE | 2020-07-21 00:29 | Event Note ---
Date: 07/21/20 Repeat ABG reviewed. Bicarb improved and K within acceptable range. Continue IVF with bicarb fluids. Kayexalate MO x 1 ordered. Repeat BMP in 4 hours. Please call and notify if bicarb declines or K rises. Blanca Orozco MD
[2020-07-21] MEDS ORDERED: DEXTROSE 50% IN WATER (25GM) 50 ML VIAL IV ONE (01:11)
[2020-07-21] MEDS ORDERED: DEXTROSE 50% IN WATER (25GM) 50 ML SYRINGE IV ONE ×2 (01:11→02:00)
[2020-07-21] MEDS: IPRATROPIUM/ALBUTEROL SULFATE 3 ML AMPUL.NEB IH SCH ×5 (01:28→21:06)
[2020-07-21] MEDS: LORazepam 2 MG/ML VIAL IV PRN ×3 (02:12→21:48)
[2020-07-21] MEDS ORDERED: PANTOPRAZOLE 40 MG INJ IV ONE (03:00)
[2020-07-21] MEDS ORDERED: SODIUM BICARBONATE 150 MEQ in DEXTROSE 5% IN WATER 1,000 ML IV SCH (03:00)
[2020-07-21] MEDS ORDERED: VANCOMYCIN/NS 1 GM/250 ML 1 GM/250 ML BAG IV ONE (03:30)
[2020-07-21] MEDS: NORepinephrine/NS 4 MG-250 ML 4 MG/250 ML BAG IV SCH (06:00)
[2020-07-21 07:03] LABS: Hemoglobin 11.7 gm/dl (10.1-14.3); Mean Corpuscular HGB Conc 33 % (30-34); Mean Corpuscular Volume 100 fl (79-97); Platelet Count 168 K/mm3 (140-440); Red Blood Count 3.52 M/mm3 (3.65-5.03); Red Cell Distribution Width 13.8 % (13.2-15.2)
[2020-07-21 07:14] LABS: Calcium 6.5 mg/dL (8.4-10.2)
[2020-07-21] MEDS ORDERED: INSULIN REGULAR, HUMAN 100 UNITS/1 ML SUB-Q NR (08:17)
[2020-07-21] MEDS ORDERED: DEXTROSE 50% IN WATER (25GM) 50 ML SYRINGE IV NR (08:17)
[2020-07-21] MEDS ORDERED: CALCIUM GLUCONATE 1,000 MG in SODIUM CHLORIDE 0.9% 100 ML IV ONE (09:00)
--- NOTE | 2020-07-21 09:00 | Consultation ---
History of Present Illness - Reason for Consult Consult date: 07/21/20 acute renal failure, hyperkalemia, metabolic acidosis - History of Present Illness History obtained from records due to mental status Mrs. Diaz is a 65-year-old female with a past medical history hepatitis C, hypertension, migraines was brought to the hospital because of altered mental status. Patient is altered and unable to provide any history of present illness therefore for EMS history obtained from family as only information available at this time. Patient has been progressively worsening since receiving her second Covid 2 days ago. Patient apparently has been having a fever on and off. She was found laying on the floor by family members today. Patient presents altered, agitated with bruising to head and torso. She is unable to answer questions or follow commands. Accu-Chek obtained after patient arrival was 55. Patient also noted to be hypothermic and hypotensive. The emergency room patient is found to have sepsis WBC 17.9 also D-dimer shows 2098, ABG shows pH is 7.016 PCO2 36.8 PO2 55.7 bicarb 9.2, lactic acid 3.[place] [address] BUN 108 and creatinine 7.7 and potassium 5.6 Past History Past Medical History: hepatitis, hypertension Medications and Allergies Allergies Allergy/AdvReac Type Severity Reaction Status Date / Time Iodine and Iodide Containing AdvReac Rash Verified 10/26/18 10:10 Produc Home Medications Medication Instructions Recorded Confirmed Last Taken Type Ondansetron [Zofran TAB] 4 mg PO Q8HR PRN #15 tablet 07/17/17 Unknown Rx Ibuprofen [Motrin 600 MG tab] 600 mg PO Q8H PRN #30 tablet 01/18/18 Unknown Rx Sulfamethoxazole/Trimethoprim 1 each PO BID 10 Days #20 tablet 01/18/18 Unknown Rx [Bactrim DS TAB] cephALEXin [Keflex] 500 mg PO Q12HR #20 capsule 01/18/18 Unknown Rx Famotidine [Pepcid] 20 mg PO BID #10 tablet 05/17/18 Unknown Rx Mag Hydrox/Aluminum Hyd/Simeth 15 ml PO QID #1 oral.susp 05/17/18 Unknown Rx [Maalox Advanced Suspension] Ondansetron [Zofran ODT TAB] 8 mg PO Q12HR #20 tab.rapdis 05/17/18 Unknown Rx Acetaminophen/Codeine [Tylenol 1 tab PO Q6H PRN #12 tab 10/26/18 Unknown Rx /Codeine # 3 tab] Clindamycin [Clindamycin CAP] 300 mg PO Q8H #21 cap 10/26/18 Unknown Rx Esomeprazole Magnesium [NexIUM] 40 mg PO QDAY 20 Days #20 06/04/19 Unknown Rx capsule.dr Active Meds: Active Medications Acetaminophen (Acetaminophen 325 Mg/10.15 Ml Oral Liqd Unit Dose) 650 mg FEEDTUBE Q6H PRN PRN Reason: Pain MILD(1-3)/Fever >100.5/HESS Al Hydrox/Mg Hydrox/Simethicone (Alum-Mag Hydroxide-Simethicone [phone]/5ml Oral Liqd 30 Ml) 15 ml PO QID HONEY Albuterol/Ipratropium (Ipratropium/Albuterol Sulfate 3 Ml Ampul.Neb) 1 ampul IH Q6HRT HONEY Last Admin: 07/21/20 07:53 Dose: 1 ampul Documented by: Dextrose (Dextrose 50% In Water (25gm) 50 Ml Syringe) 50 ml IV ONCE NR; Protocol Stop: 07/21/20 10:00 Famotidine (Famotidine 20 Mg/2 Ml Inj) 20 mg IV QAM OHNEY Last Admin: 07/21/20 00:22 Dose: 20 mg Documented by: Heparin Sodium (Porcine) (Heparin 5,000 Unit/1 Ml Vial) 5,000 unit SUB-Q PREOP NR Stop: 07/21/20 23:29 Heparin Sodium (Porcine) (Heparin 5,000 Unit/1 Ml Vial) 5,000 unit SUB-Q Q12HR HONEY Hydromorphone HCl (Hydromorphone 1 Mg/1 Ml Inj) 0.25 mg IV Q4H PRN PRN Reason: Pain, Moderate (4-6) Last Admin: 07/21/20 01:47 Dose: 0.25 mg Documented by: Norepinephrine (Levophed Drip 4 Mg/Ns 250 Ml) 4 mg in 250 mls @ 7.5 mls/hr IV TITR HONEY; Protocol Last Admin: 07/21/20 06:00 Dose: 6 mcg/min, 22.5 mls/hr Documented by: Dextrose/Sodium Chloride (D5ns) 1,000 mls @ 100 mls/hr IV DIRECT HONEY Last Admin: 07/21/20 02:13 Dose: 100 mls/hr Documented by: Sodium Bicarbonate 150 meq/ (Dextrose) 1,150 mls @ 100 mls/hr IV DIRECT HONEY Stop: 07/21/20 14:29 Last Admin: 07/21/20 03:17 Dose: 100 mls/hr Documented by: Cefepime HCl (Cefepime/Ns 2 Gm/100 Ml) 2 gm in 100 mls @ 200 mls/hr IV Q24HR HONEY; Protocol Calcium Gluconate 1,000 mg/ (Sodium Chloride) 110 mls @ 330 mls/hr IV ONCE ONE Stop: 07/21/20 09:19 Insulin Human Regular (Insulin Regular, Human 100 Units/1 Ml) 10 units SUB-Q ONCE NR Stop: 07/21/20 09:30 Lorazepam (Lorazepam 2 Mg/Ml Vial) 2 mg IV Q4H PRN PRN Reason: Agitation Last Admin: 07/21/20 02:12 Dose: 2 mg Documented by: Metoclopramide HCl (Metoclopramide 10 Mg/2 Ml Inj) 5 mg IV Q6H PRN PRN Reason: Nausea And Vomiting Ondansetron HCl (Ondansetron 4 Mg/2 Ml Inj) 4 mg IV Q8H PRN PRN Reason: Nausea And Vomiting Sodium Chloride (Sodium Chloride 0.9% 10 Ml Flush Syringe) 10 ml IV BID HONEY Sodium Chloride (Sodium Chloride 0.9% 10 Ml Flush Syringe) 10 ml IV PRN PRN PRN Reason: LINE FLUSH Sodium Polystyrene Sulfonate (Sodium Polystyrene 15 Gm/60 Ml Oral Liqd) 15 gm TN QDAY [facility] Review of Systems ROS unobtainable: due to mental status Exam - Vital Signs Vital signs: Vital Signs Temp Pulse Resp BP 86 F L 72 32 H 106/79 07/20/20 18:54 07/20/20 18:54 07/20/20 18:54 07/20/20 18:54 - General Appearance General appearance: well-developed, frail EENT: ATNC Respiratory: Other (isolation stethoscope not available iin room) Heart: regular (per monitor) Gastrointestinal: Absent: tenderness, distended Integumentary: warm and dry Neurologic: other (somonolent) Musculoskeletal: Present: other (no edema) Results - Lab Results 07/21/20 04:00 07/21/20 04:00 Most recent lab results ABG pH 7.174 (7.320-7.450) L 07/21/20 23:59 ABG O2 Saturation 92.1 (0-100) 07/21/20 23:59 Calcium 6.5 mg/dL (8.4-10.2) L 07/21/20 04:00 Assessment and Plan Impression: * Nonoliguric DOREEN secondary to multifactorial etiologies: prerenal component due to volume depletion vs ATN (sepsis) * Acute hypoxic respiratory failure * Sepsis * Acute encephelopathy * Uremia * Hyperkalemia * Acidosis, respiratory w/ inadequate metabolic compensation * r/o COVID 19 infection Plan: * Agree with volume replacement - NS bolus x 2 ordered by CCM (SBP in 70s upon my exam) * Continue bicarb gtt * Broad spectrum abx * Await blood/urine cultures * Pressors prn to maintain MAP>65 * Repeat BMP at noon today * No acute indication for renal replacement therapy at this time * Dose medications for renal function
[2020-07-21] MEDS ORDERED: SODIUM CHLORIDE 0.9% 1000 ML 2,000 ML IV ONE ×3 (09:13→17:08)
[2020-07-21] MEDS ORDERED: SODIUM CHLORIDE 0.9% 1000 ML 2,000 ML ONE (09:13)
[2020-07-21] MEDS ORDERED: VASOPRESSIN 20 UNIT in SODIUM CHLORIDE 0.9% 100 ML IV SCH (10:00)
[2020-07-21] MEDS ORDERED: SODIUM POLYSTYRENE 15 GM/60 ML ORAL LIQD PR SCH (10:00)
[2020-07-21] MEDS ORDERED: ALUM-MAG HYDROXIDE-SIMETHICONE 200-200-20MG/5ML ORAL LIQD 30 ML PO SCH (10:00)
[2020-07-21] MEDS ORDERED: NON-FORMULARY EACH (Esomeprazole Magnesium [Nexium] 40 MG Capsule.Dr) PO SCH (10:00)
[2020-07-21] MEDS: CEFEPIME/NS 2 GM/100 ML 2 GM/100 ML BAG IV SCH (10:40)
[2020-07-21] MEDS: HEPARIN 5,000 UNIT/1 ML VIAL SUB-Q SCH ×2 (10:43→21:39)
--- NOTE | 2020-07-21 11:25 | Electrocardiograph Report ---
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
--- NOTE | 2020-07-21 11:33 | Consultation ---
History of Present Illness Consult date: 07/21/20 Requesting physician: NEELA CARBAJAL Reason for consult: other (Sepsis/Volume depletion) History of present illness: 65 y/o female presented to the ED with hypotension, acute renal failure, hyperkalemia and altered mental state. Patient also found to have significant UA and started on broad spectrum abx therapy. Patient not able to give any history. Per EMS patient was found on floor by family members. C-spine was cleared. Per report, patient had covid vaccine several days ago and family feels she has been sick since then. No one knows which vaccine she got. Spoke with ED physician on phone last night. This am she is on bipap but more awake, still not follow commands. She got maintenance fluids but no boluses from the ED nor once she got to the floor. Nursing emptied out 300cc's of urine this am. pH is better but maxed on levo and now on vasopressin. Past History Past Medical History: hepatitis, hypertension Medications and Allergies Allergies Allergy/AdvReac Type Severity Reaction Status Date / Time Iodine and Iodide Containing AdvReac Rash Verified 10/26/18 10:10 Produc Home Medications Medication Instructions Recorded Confirmed Last Taken Type Ondansetron [Zofran TAB] 4 mg PO Q8HR PRN #15 tablet 07/17/17 Unknown Rx Ibuprofen [Motrin 600 MG tab] 600 mg PO Q8H PRN #30 tablet 01/18/18 Unknown Rx Sulfamethoxazole/Trimethoprim 1 each PO BID 10 Days #20 tablet 01/18/18 Unknown Rx [Bactrim DS TAB] cephALEXin [Keflex] 500 mg PO Q12HR #20 capsule 01/18/18 Unknown Rx Famotidine [Pepcid] 20 mg PO BID #10 tablet 05/17/18 Unknown Rx Mag Hydrox/Aluminum Hyd/Simeth 15 ml PO QID #1 oral.susp 05/17/18 Unknown Rx [Maalox Advanced Suspension] Ondansetron [Zofran ODT TAB] 8 mg PO Q12HR #20 tab.rapdis 05/17/18 Unknown Rx Acetaminophen/Codeine [Tylenol 1 tab PO Q6H PRN #12 tab 10/26/18 Unknown Rx /Codeine # 3 tab] Clindamycin [Clindamycin CAP] 300 mg PO Q8H #21 cap 06/30/19 Unknown Rx Esomeprazole Magnesium [NexIUM] 40 mg PO QDAY 20 Days #20 06/04/19 Unknown Rx capsule.dr Active Meds: Active Medications Acetaminophen (Acetaminophen 325 Mg/10.15 Ml Oral Liqd Unit Dose) 650 mg F EEDTUBE Q6H PRN PRN Reason: Pain MILD(1-3)/Fever >100.5/HESS Albuterol/Ipratropium (Ipratropium/Albuterol Sulfate 3 Ml Ampul.Neb) 1 ampul IH Q6HRT HONEY Last Admin: 07/21/20 07:53 Dose: 1 ampul Documented by: Famotidine (Famotidine 20 Mg/2 Ml Inj) 20 mg IV QAM HONEY Last Admin: 07/21/20 10:41 Dose: 20 mg Documented by: Heparin Sodium (Porcine) (Heparin 5,000 Unit/1 Ml Vial) 5,000 unit SUB-Q PREOP NR Stop: 07/21/20 23:29 Heparin Sodium (Porcine) (Heparin 5,000 Unit/1 Ml Vial) 5,000 unit SUB-Q Q12HR HONEY Last Admin: 07/21/20 10:43 Dose: 5,000 unit Documented by: Norepinephrine (Levophed Drip 4 Mg/Ns 250 Ml) 4 mg in 250 mls @ 7.5 mls/hr IV TITR HONEY; Protocol Last Titration: 07/21/20 09:01 Dose: 30 mcg/min, 112.5 mls/hr Documented by: Sodium Bicarbonate 150 meq/ (Dextrose) 1,150 mls @ 100 mls/hr IV DIRECT HONEY Stop: 07/21/20 14:29 Last Admin: 07/21/20 03:17 Dose: 100 mls/hr Documented by: Cefepime HCl (Cefepime/Ns 2 Gm/100 Ml) 2 gm in 100 mls @ 200 mls/hr IV Q24HR HONEY; Protocol Last Admin: 07/21/20 10:40 Dose: 200 mls/hr Documented by: Vasopressin 20 unit/ Sodium (Chloride) 101 mls @ 9.09 mls/hr IV TITR HONEY; Protocol Last Admin: 07/21/20 09:53 Dose: 0.03 units/min, 9.09 mls/hr Documented by: Sodium Chloride (Nacl 0.9% 1000 Ml) 2,000 mls @ 999 mls/hr IV ONCE ONE Stop: 07/21/20 12:34 Lorazepam (Lorazepam 2 Mg/Ml Vial) 2 mg IV Q4H PRN PRN Reason: Agitation Last Admin: 07/21/20 02:12 Dose: 2 mg Documented by: Metoclopramide HCl (Metoclopramide 10 Mg/2 Ml Inj) 5 mg IV Q6H PRN PRN Reason: Nausea And Vomiting Ondansetron HCl (Ondansetron 4 Mg/2 Ml Inj) 4 mg IV Q8H PRN PRN Reason: Nausea And Vomiting Sodium Chloride (Sodium Chloride 0.9% 10 Ml Flush Syringe) 10 ml IV BID [facility] Last Admin: 07/21/20 10:42 Dose: 10 ml Documented by: Sodium Chloride (Sodium Chloride 0.9% 10 Ml Flush Syringe) 10 ml IV PRN PRN PRN Reason: LINE FLUSH Sodium Polystyrene Sulfonate (Sodium Polystyrene 15 Gm/60 Ml Oral Liqd) 15 gm IA QDAY [facility] Last Admin: 07/21/20 10:44 Dose: 15 gm Documented by: Review of Systems ROS unobtainable: due to mental status Physical Examination Vital signs: Vital Signs Temp Pulse Resp BP 86 F L 72 32 H 106/79 07/20/20 18:54 07/20/20 18:54 07/20/20 18:54 07/20/20 18:54 Results - Laboratory Findings CBC and BMP: 07/21/20 04:00 07/21/20 09:00 ABG ABG pH 7.174 (7.320-7.450) L 07/21/20 23:59 POC ABG pCO2 41.9 mmHg (32.0-48.0) 07/21/20 23:59 POC ABG pO2 69.3 mmHg (83-108) L 07/21/20 23:59 POC ABG HCO3 15.1 07/21/20 23:59 ABG O2 Saturation 92.1 (0-100) 07/21/20 23:59 PT/INR, D-dimer PT 20.1 Sec. (12.2-14.9) H 07/20/20 19:32 INR 1.72 (0.87-1.13) H 07/20/20 19:32 D-Dimer 2098.49 ng/mlDDU (0-234) H 07/20/20 21:59 Abnormal lab findings: Abnormal Labs 07/20/20 07/20/20 07/20/20 19:20 19:27 19:27 WBC 17.9 H RBC MCV 102 H MCH 33 H Lymph % (Auto) 4.4 L Lymph # (Auto) 0.8 L Baso # (Auto) 0.3 H Seg Neutrophils % 90.0 H Seg Neutrophils # 16.1 H PT INR D-Dimer ABG pH POC ABG pO2 ABG Hemoglobin ABG Oxyhemoglobin ABG Sodium ABG Potassium ABG Glucose Sodium 130 L Potassium 5.6 H Chloride 84.4 L Carbon Dioxide 14 L BUN 108 H Creatinine 7.7 H Glucose POC Glucose 55 L Lactic Acid Calcium 7.4 L Ferritin AST 306 H ALT 97 H Ammonia Lactate Dehydrogenase Total Creatine Kinase CK-MB (CK-2) C-Reactive Protein Albumin 3.3 L Arterial Blood Glucose Arterial Blood Ionized Calcium Urine WBC (Auto) 07/20/20 07/20/20 07/20/20 19:27 19:27 19:32 WBC RBC MCV MCH Lymph % (Auto) Lymph # (Auto) Baso # (Auto) Seg Neutrophils % Seg Neutrophils # PT 20.1 H INR 1.72 H D-Dimer ABG pH POC ABG pO2 ABG Hemoglobin ABG Oxyhemoglobin ABG Sodium ABG Potassium ABG Glucose Sodium Potassium Chloride Carbon Dioxide BUN Creatinine Glucose POC Glucose Lactic Acid 3.10 H* Calcium Ferritin AST ALT Ammonia Lactate Dehydrogenase Total Creatine Kinase 04523 H CK-MB (CK-2) 289.0 H C-Reactive Protein Albumin Arterial Blood Glucose Arterial Blood Ionized Calcium Urine WBC (Auto) 07/20/20 07/20/20 07/20/20 19:52 19:59 20:41 WBC RBC MCV MCH Lymph % (Auto) Lymph # (Auto) Baso # (Auto) Seg Neutrophils % Seg Neutrophils # PT INR D-Dimer ABG pH 7.016 L POC ABG pO2 55.7 L ABG Hemoglobin ABG Oxyhemoglobin 81.6 L ABG Sodium 129.0 L ABG Potassium 5.0 H ABG Glucose 157 H Sodium Potassium Chloride Carbon Dioxide BUN Creatinine Glucose POC Glucose 108 H Lactic Acid Calcium Ferritin AST ALT Ammonia Lactate Dehydrogenase Total Creatine Kinase CK-MB (CK-2) C-Reactive Protein Albumin Arterial Blood Glucose 157 H Arterial Blood Ionized Calcium 3.9 L Urine WBC (Auto) > 182.0 H 07/20/20 07/20/20 07/20/20 21:59 21:59 21:59 WBC RBC MCV MCH Lymph % (Auto) Lymph # (Auto) Baso # (Auto) Seg Neutrophils % Seg Neutrophils # PT INR D-Dimer 2098.49 H ABG pH POC ABG pO2 ABG Hemoglobin ABG Oxyhemoglobin ABG Sodium ABG Potassium ABG Glucose Sodium Potassium Chloride Carbon Dioxide BUN Creatinine Glucose POC Glucose Lactic Acid Calcium Ferritin 1648.0 H AST ALT Ammonia Lactate Dehydrogenase 732 H Total Creatine Kinase CK-MB (CK-2) C-Reactive Protein 37.90 H Albumin Arterial Blood Glucose Arterial Blood Ionized Calcium Urine WBC (Auto) 07/20/20 07/21/20 07/21/20 23:35 01:56 04:00 WBC 15.1 H RBC 3.52 L MCV 100 H MCH 33 H Lymph % (Auto) Lymph # (Auto) Baso # (Auto) Seg Neutrophils % Seg Neutrophils # PT INR D-Dimer ABG pH POC ABG pO2 ABG Hemoglobin ABG Oxyhemoglobin ABG Sodium ABG Potassium ABG Glucose Sodium Potassium 5.8 H Chloride 95.4 L Carbon Dioxide 17 L BUN 100 H Creatinine 6.8 H Glucose 61 L POC Glucose 138 H Lactic Acid Calcium 6.3 L Ferritin AST ALT Ammonia Lactate Dehydrogenase Total Creatine Kinase CK-MB (CK-2) C-Reactive Protein Albumin Arterial Blood Glucose Arterial Blood Ionized Calcium Urine WBC (Auto) 07/21/20 07/21/20 07/21/20 04:00 05:24 06:06 WBC RBC MCV MCH Lymph % (Auto) Lymph # (Auto) Baso # (Auto) Seg Neutrophils % Seg Neutrophils # PT INR D-Dimer ABG pH POC ABG pO2 ABG Hemoglobin ABG Oxyhemoglobin ABG Sodium ABG Potassium ABG Glucose Sodium Potassium 6.1 H* Chloride 97.2 L Carbon Dioxide 21 L BUN 104 H Creatinine 6.7 H Glucose POC Glucose 121 H 124 H Lactic Acid Calcium 6.5 L Ferritin AST ALT Ammonia Lactate Dehydrogenase Total Creatine Kinase CK-MB (CK-2) C-Reactive Protein Albumin Arterial Blood Glucose Arterial Blood Ionized Calcium Urine WBC (Auto) 07/21/20 07/21/20 07/21/20 06:58 07:58 08:20 WBC RBC MCV MCH Lymph % (Auto) Lymph # (Auto) Baso # (Auto) Seg Neutrophils % Seg Neutrophils # PT INR D-Dimer ABG pH POC ABG pO2 ABG Hemoglobin ABG Oxyhemoglobin ABG Sodium ABG Potassium ABG Glucose Sodium Potassium Chloride Carbon Dioxide BUN Creatinine Glucose POC Glucose 128 H 133 H Lactic Acid Calcium Ferritin AST ALT Ammonia Lactate Dehydrogenase Total Creatine Kinase 92581 H CK-MB (CK-2) C-Reactive Protein Albumin Arterial Blood Glucose Arterial Blood Ionized Calcium Urine WBC (Auto) 07/21/20 07/21/20 07/21/20 09:15 09:31 10:09 WBC RBC MCV MCH Lymph % (Auto) Lymph # (Auto) Baso # (Auto) Seg Neutrophils % Seg Neutrophils # PT INR D-Dimer ABG pH 7.239 L POC ABG pO2 70.1 L ABG Hemoglobin 11.4 L ABG Oxyhemoglobin 92.6 L ABG Sodium 135.2 L ABG Potassium 5.1 H ABG Glucose 147 H Sodium Potassium Chloride Carbon Dioxide BUN Creatinine Glucose POC Glucose 129 H Lactic Acid Calcium Ferritin AST ALT Ammonia 24.0 L Lactate Dehydrogenase Total Creatine Kinase CK-MB (CK-2) C-Reactive Protein Albumin Arterial Blood Glucose 147 H Arterial Blood Ionized Calcium 3.4 L Urine WBC (Auto) 07/21/20 23:59 WBC RBC MCV MCH Lymph % (Auto) Lymph # (Auto) Baso # (Auto) Seg Neutrophils % Seg Neutrophils # PT INR D-Dimer ABG pH 7.174 L POC ABG pO2 69.3 L ABG Hemoglobin 11.9 L ABG Oxyhemoglobin 91.0 L ABG Sodium 134.0 L ABG Potassium 5.4 H ABG Glucose 60 L Sodium Potassium Chloride Carbon Dioxide BUN Creatinine Glucose POC Glucose Lactic Acid Calcium Ferritin AST ALT Ammonia Lactate Dehydrogenase Total Creatine Kinase CK-MB (CK-2) C-Reactive Protein Albumin Arterial Blood Glucose 60 L Arterial Blood Ionized Calcium 3.6 L Urine WBC (Auto) - Diagnostic Findings Chest x-ray: image reviewed Assessment and Plan 65 y/o female with altered mental state, hypotension, renal failure and electrolyte imbalance with UTI seen on urine analysis and presumptive sepsis with distributive shock. 1. Needs more fluid resuscitation. Ordered for 2 more liters of saline now and additional to be bolused after rounds today 2. Agree with broad spec abx therapy follow up on cultures of urine and blood 3. Currently on bipap but hopeful we can wean as tolerated given improvement in mental status. 4. Spoke with renal and they agree with more volume and chemical management of hyperkalemia 5. Given CXR appearance and no other imaging, will obtain 2D echo as well. her hypotension could be from sepsis but need to make sure cardiac function is ok. She may need inotropic help with pressor requirement does not improve. 6. Continue to assess volume throughout the day 7. CMP q6 hours to monitor sodium and other electrolytes 8. ordered picc but likely will not happen today. continue right femoral groin line. 9. Hold on feeds given her pressor requirement and bipap requirement 10. DVT and GI prophylaxis. Guarded prognosis. CCT 31 minutes.
[2020-07-21 12:33] LABS: Bilirubin,Urine NEG (Negative); Blood,Urine LG (Negative); Color,Urine Yellow (Yellow); Hyaline Casts,Urine 9 /LPF; Mucus,Urine FEW /HPF; Urobilinogen,Urine < 2.0 mg/dL (<2.0)
--- NOTE | 2020-07-21 12:51 | Progress Note ---
Assessment and Plan Assessment and plan: Sepsis -Presented with hypothermia, hypotension, metabolic acidosis, acute respiratory failure, tachycardia, UTI -COVID-19 PUI Per ED -ABX therapy -07/20 blood cultures and urine culture pending -07/20 urine analysis shows urinary tract infection -Infectious disease consulted, appreciate recommendations -2D echo pending COVID-19 PUI -Droplet/isolation precautions -ID and pulmonology consult -COVID-19 PCR pending -Abx per ID Urinary tract infection -Noted on UA -Antibiotic therapy Acute renal failure -Nephrology consulted, appreciate recommendations -Strict intake and output -Serial BMPs -Avoid nephrotoxic medications -Renally dose medications Rhabdomyolysis -S/p 3 units normal saline bolus in the emergency department -MIVF -Trend CK Hyperkalemia -Treated with insulin, D50, calcium gluconate and Kionex -Trend BMP Hypothermia -Jesus hugger as needed Acute respiratory failure -BiPAP therapy -ABGs as needed -Pulmonary hygiene -SPO2 monitoring Metabolic acidosis -Bicarb infusion -Routine ABGs Acute metabolic encephalopathy -CT head shows small region of diffuse brain parenchymal attenuation observed along with the inferolateral occipital lobe (?represents an area of encephalomalacia but small area of vasogenic edema not excluded, follow-up MRI brain with and without contrast) -Supportive care Hypotension -Vasopressor support for maps greater than 65 -MIVF in the ED, 4 L MIVF in the ICU Ground-level fall -C-spine shows no indication of fracture or traumatic subluxation, widespread cervical spondylosis with multifocal neuroforaminal stenosis -Supportive care Hypertension -Hold home antihypertensives in setting of hypotension -Blood pressure monitor per protocol Hepatitis C -Supportive care DVT/GI prophylaxis: Heparin subcu, SCDs to bilateral lower extremities while in bed, PPI Dispo: ICU CODE STATUS: DNR/AND The high probability of a clinically significant, sudden or life threatening deterioration of the [multi] system(s) required my full and direct attention, intervention and personal management. The aggregate critical care time was [40] minutes. This time is in addition to time spent performing reported procedures but includes the following: [x] Data Review and interpretation [x] Patient assessment and monitoring of vital signs [x] Documentation [x] Medication orders and management History Interval history: This is a 65-year-old female with hepatitis C, migraines and hypertension who had presented to the emergency department on 07/21 with altered mental status after being found on the floor by family members. Upon evaluation in the emergency department patient was found to be hypothermic and hypotensive with leukocytosis and acute kidney failure consistent with sepsis. Patient also had elevated D- dimer, metabolic encephalopathy, lactic acidosis, hyperkalemia and rhabdomyolysis. Patient was admitted to the hospital service with sepsis, UTI, DOREEN, rhabdomyolysis, acute respiratory failure, metabolic acidosis, acute metabolic encephalopathy. Nephrology, infectious disease and critical care co nsulted. Sepsis Urinary tract infection Acute renal failure Rhabdomyolysis Hyperkalemia Hypothermia Acute respiratory failure Metabolic acidosis Acute metabolic encephalopathy Hypertension Hepatitis C 07/21: Patient received a total of 4 L normal saline, was started on vasopressin and remains on BiPAP. Patient was on Levophed and D5 normal saline and a bicarbonate drip. D5 normal saline was discontinued. We will obtain a p.m. BMP and serial BMPs. Patient was contacted and the patient is now on AND/DNR. Hospitalist Physical - Constitutional Vitals: Temp Pulse Resp BP Pulse Ox 98.7 F 92 H 18 140/103 93 07/21/20 12:00 07/21/20 11:15 07/21/20 11:15 07/21/20 11:15 07/21/20 11:15 General appearance: Present: severe distress - EENT Eyes: Present: PERRL ENT: clear oral mucosa - Neck Neck: Present: normal ROM - Respiratory Respiratory effort: normal Respiratory: bilateral: diminished - Cardiovascular Rhythm: regular Heart Sounds: Present: S1 & S2. Absent: systolic murmur, diastolic murmur - Extremities Extremities: no ischemia, pulses intact, No edema, normal temperature, normal color, Full ROM Peripheral Pulses: within normal limits - Abdominal General gastrointestinal: soft, non-distended, normal bowel sounds - Integumentary Integumentary: Present: warm, dry - Neurologic Neurologic: moves all extremities - Allied Health Allied health notes reviewed: nursing, RT HEART Score - HEART Score Troponin: Troponin T 0.026 ng/mL (0.00-0.029) 07/20/20 19:27 Results - Labs CBC & Chem 7: 07/21/20 04:00 07/21/20 09:00 Labs: Laboratory Last Values WBC 15.1 K/mm3 (4.5-11.0) H 07/21/20 04:00 RBC 3.52 M/mm3 (3.65-5.03) L 07/21/20 04:00 Hgb 11.7 gm/dl (10.1-14.3) 07/21/20 04:00 Hct 35.0 % (30.3-42.9) 07/21/20 04:00 MCV 100 fl (79-97) H 07/21/20 04:00 MCH 33 pg (28-32) H 07/21/20 04:00 MCHC 33 % (30-34) 07/21/20 04:00 RDW 13.8 % (13.2-15.2) 07/21/20 04:00 Plt Count 168 K/mm3 (140-440) 07/21/20 04:00 Lymph % (Auto) 4.4 % (13.4-35.0) L 07/20/20 19:27 [place] % (Auto) 2.1 % (0.0-7.3) 07/20/20 19: Eos % (Auto) 1.8 % (0.0-4.3) 07/20/20 19: Baso % (Auto) 1.7 % (0.0-1.8) 07/20/20 19: Lymph # (Auto) 0.8 K/mm3 (1.2-5.4) L 07/20/20 19:27 [place] # (Auto) 0.4 K/mm3 (0.0-0.8) 07/20/20 19: Eos # (Auto) 0.3 K/mm3 (0.0-0.4) 07/20/20 19:27 Baso # (Auto) 0.3 K/mm3 (0.0-0.1) H 07/20/20 19: Seg Neutrophils % [employer] Director 07/21/20 04:00 Seg Neutrophils # 16.1 K/mm3 (1.8-7.7) H 07/20/20 19:27 PT 20.1 Sec. (12.2-14.9) H 07/20/20 19:32 INR 1.72 (0.87-1.13) H 07/20/20 19:32 APTT 33.7 Sec. (24.2-36.6) 07/20/20 19:32 D-Dimer 2098.49 ng/mlDDU (0-234) H 07/20/20 21:59 ABG pH 7.174 (7.320-7.450) L 07/21/20 23:59 POC ABG pCO2 41.9 mmHg (32.0-48.0) 07/21/20 23:59 POC ABG pO2 69.3 mmHg (83-108) L 07/21/20 23:59 POC ABG HCO3 15.1 07/21/20 23:59 ABG O2 Saturation 92.1 (0-100) 07/21/20 23:59 POC ABG Base Excess -12.8 07/21/20 23:59 ABG Hemoglobin 11.9 (12.0-17.5) L 07/21/20 23:59 ABG Oxyhemoglobin 91.0 (94-98) L 07/21/20 23:59 ABG Methemoglobin 0.3 (0.0-1.5) 07/21/20 23:59 ABG Sodium 134.0 mmol/L (136.0-145.0) L 07/21/20 23:59 ABG Potassium 5.4 mmol/L (3.40-4.50) H 07/21/20 23:59 ABG Chloride 100.0 mmol/L (98-107) 07/21/20 23:59 ABG Glucose 60 mg/dL (65-95) L 07/21/20 23:59 Carboxyhemoglobin 0.9 (0.5-1.5) 07/21/20 23:59 FiO2 % 50.0 07/21/20 23:59 Sodium 138 mmol/L (137-145) 07/21/20 04:00 Potassium 5.0 mmol/L (3.6-5.0) 07/21/20 09:00 Chloride 97.2 mmol/L (98-107) L 07/21/20 04:00 Carbon Dioxide 21 mmol/L (22-30) L 07/21/20 04:00 Anion Gap 26 mmol/L 07/21/20 04:00 BUN 104 mg/dL (7-17) H 07/21/20 04:00 Creatinine 6.7 mg/dL (0.6-1.2) H 07/21/20 04:00 Estimated GFR 6 ml/min 07/21/20 04:00 BUN/Creatinine Ratio 16 % 07/21/20 04:00 Glucose 99 mg/dL (65-100) 07/21/20 04:00 POC Glucose 129 mg/dL (70-105) H 07/21/20 10:09 Lactic Acid 1.90 mmol/L (0.7-2.0) 07/20/20 21:59 Calcium 6.5 mg/dL (8.4-10.2) L 07/21/20 04:00 Ferritin 1648.0 ng/mL (10.0-200.0) H 07/20/20 21:59 Total Bilirubin 0.20 mg/dL (0.1-1.2) 07/20/20 19:27 AST 306 units/L (5-40) H 07/20/20 19:27 ALT 97 units/L (7-56) H 07/20/20 19:27 Alkaline Phosphatase 94 units/L (35-129) 07/20/20 19:27 Ammonia 24.0 umol/L (25-60) L 07/21/20 09:31 Lactate Dehydrogenase 732 units/L (91-180) H 07/20/20 21:59 Total Creatine Kinase 45832 units/L (30-135) H 07/21/20 08:20 CK-MB (CK-2) 289.0 ng/mL (0.0-4.0) H 07/20/20 19:27 CK-MB (CK-2) Rel Index 2.0 (0-4) 07/20/20 19:27 Troponin T 0.026 ng/mL (0.00-0.029) 07/20/20 19:27 C-Reactive Protein 37.90 mg/dL (0.00-1.30) H 07/20/20 21:59 Total Protein 6.7 g/dL (6.3-8.2) 07/20/20 19:27 Albumin 3.3 g/dL (3.9-5) L 07/20/20 19:27 Albumin/Globulin Ratio 1.0 % 07/20/20 19:27 Procalcitonin 40.67 ng/mL (<0.15) 07/20/20 21:59 TSH 0.454 mlU/mL (0.270-4.200) 07/20/20 19:27 Free T4 0.87 ng/dL (0.76-1.46) 07/20/20 19:27 Arterial Blood Glucose 60 mg/dL (65-95) L 07/21/20 23:59 Arterial Blood Ionized Calcium 3.6 mg/dL (4.6-5.3) L 07/21/20 23:59 Urine Color Yellow (Yellow) 07/21/20 Unknown Urine Turbidity Cloudy (Clear) 07/21/20 Unknown Urine pH 5.0 (5.0-7.0) 07/21/20 Unknown Ur Specific Jonancy 1.013 (1.003-1.030) 07/21/20 Unknown Urine Protein 30 mg/dl mg/dL (Negative) 07/21/20 Unknown Urine Glucose (UA) Neg mg/dL (Negative) 07/21/20 Unknown Urine Ketones Neg mg/dL (Negative) 07/21/20 Unknown Urine Blood Lg (Negative) 07/21/20 Unknown Urine Nitrite Neg (Negative) 07/21/20 Unknown Urine Bilirubin Neg (Negative) 07/21/20 Unknown Urine Urobilinogen < 2.0 mg/dL (<2.0) 07/21/20 Unknown Ur Leukocyte Esterase Sm (Negative) 07/21/20 Unknown Urine WBC (Auto) 28.0 /HPF (0.0-6.0) H 07/21/20 Unknown Urine RBC (Auto) 89.0 /HPF (0.0-6.0) 07/21/20 Unknown U Epithel Cells (Auto) 1.0 /HPF (0-13.0) 07/21/20 Unknown Urine WBC Clumps 2+ /HPF 07/21/20 Unknown Hyaline Casts 9 /LPF 07/21/20 Unknown Urine Mucus Few /HPF 07/21/20 Unknown Urine Yeast (Budding) 3+ /HPF 07/20/20 19:52 Urine Sodium 10 mmol/L 07/21/20 Unknown Urine Opiates Screen Positive 07/20/20 19:52 Urine Methadone Screen Negative 07/20/20 19:52 Ur Barbiturates Screen Negative 07/20/20 19:52 Ur Phencyclidine Scrn Negative 07/20/20 19:52 Ur Amphetamines Screen Negative 07/20/20 19:52 U Benzodiazepines Scrn Positive 07/20/20 19:52 Urine Cocaine Screen Negative 07/20/20 19:52 U Marijuana (THC) Screen Negative 07/20/20 19:52 Drugs of Abuse Note Disclamer 07/20/20 19:52 Blood Type O POSITIVE 07/20/20 23:15 Antibody Screen Negative 07/20/20 23:15 Microbiology: Microbiology 07/20/20 19:32 Peripheral/Venous Blood Culture - Preliminary Culture in Progress 07/20/20 19:27 Peripheral/Venous Blood Culture - Preliminary Culture in Progress Russell/IV: Voiding Method Indwelling Catheter Active Medications - Current Medications Current Medications: Generic Name Dose Route Start Last Admin Trade Name Freq PRN Reason Stop Dose Admin Acetaminophen 650 mg 07/20/20 22:51 Acetaminophen 325 Mg/10.15 Ml Oral Liqd Unit Dose FEEDTUBE Q6H PRN Pain MILD(1-3)/Fever >100.5/HESS Albuterol/Ipratropium 1 ampul 07/20/20 23:00 07/21/20 07:53 Ipratropium/Albuterol Sulfate 3 Ml Ampul.Neb IH 1 ampul Q6HRT HONEY Administration Famotidine 20 mg 07/20/20 23:00 07/21/20 10:41 Famotidine 20 Mg/2 Ml Inj IV 20 mg QAM HONEY Administration Heparin Sodium (Porcine) 5,000 unit 07/20/20 23:30 Heparin 5,000 Unit/1 Ml Vial SUB-Q 07/21/20 23:29 PREOP NR Heparin Sodium (Porcine) 5,000 unit 07/21/20 10:00 07/21/20 10:43 Heparin 5,000 Unit/1 Ml Vial SUB-Q 5,000 unit Q12HR HONEY Administration Sodium Bicarbonate 150 meq/ 1,150 mls @ 100 mls/hr 07/21/20 03:00 07/21/20 03:17 Dextrose IV 07/21/20 14:29 100 mls/hr DIRECT HONEY Administration Cefepime HCl 2 gm in 100 mls @ 200 mls/hr 07/21/20 10:00 07/21/20 10:40 Cefepime/Ns 2 Gm/100 Ml IV 200 mls/hr Q24HR HONEY Administration Protocol Vasopressin 20 unit/ Sodium 101 mls @ 9.09 mls/hr 07/21/20 10:00 07/21/20 09:53 Chloride IV 0.03 units/min TITR HONEY 9.09 mls/hr Administration Protocol 0.03 UNITS/MIN Norepinephrine 8 mg/ Dextrose 258 mls @ 3.87 mls/hr 07/21/20 12:00 07/21/20 12:45 IV 26 mcg/min TITRATE HONEY 50.31 mls/hr Titration Protocol 2 MCG/MIN Lorazepam 2 mg 07/21/20 02:05 07/21/20 02:12 Lorazepam 2 Mg/Ml Vial IV 2 mg Q4H PRN Administration Agitation Metoclopramide HCl 5 mg 07/20/20 22:51 Metoclopramide 10 Mg/2 Ml Inj IV Q6H PRN Nausea And Vomiting Ondansetron HCl 4 mg 07/20/20 22:51 Ondansetron 4 Mg/2 Ml Inj IV Q8H PRN Nausea And Vomiting Sodium Chloride 10 ml 07/21/20 10:00 07/21/20 10:42 Sodium Chloride 0.9% 10 Ml Flush Syringe IV 10 ml BID HONEY Administration Sodium Chloride 10 ml 07/20/20 22:51 Sodium Chloride 0.9% 10 Ml Flush Syringe IV PRN PRN LINE FLUSH Sodium Polystyrene Sulfonate 15 gm 07/21/20 10:00 07/21/20 10:44 Sodium Polystyrene 15 Gm/60 Ml Oral Liqd [place] 15 gm QDAY HONEY Administration
[2020-07-21 13:06] LABS: Creatinine,Urine < 4.2 mg/dL (0.1-20.0)
[2020-07-21] MEDS ORDERED: SODIUM CHLORIDE 0.9% 1000 ML 1,000 ML IV ONE ×2 (14:00→18:00)
[2020-07-21 17:41] LABS: Band Neutrophils # (Manual) 4.8 K/mm3; Total Cells Counted 100
[2020-07-21 17:42] LABS: Burr Cells 1+; Platelet Estimate Consistent w Auto
[2020-07-21 18:24] LABS: Calcium 5.6 mg/dL (8.4-10.2)
[2020-07-21] MEDS ORDERED: LACTATED RINGERS 2,000 ML IV ONE (18:32)
[2020-07-21] MEDS ORDERED: NORepinephrine 8 MG in SODIUM CHLORIDE 0.9% 250ML 242 ML IV SCH (19:00)
[2020-07-22] MEDS: LORazepam 2 MG/ML VIAL IV PRN ×3 (02:05→09:01)
[2020-07-22] MEDS: IPRATROPIUM/ALBUTEROL SULFATE 3 ML AMPUL.NEB IH SCH ×4 (02:10→19:25)
[2020-07-22 04:11] LABS: Calcium 6.5 mg/dL (8.4-10.2)
[2020-07-22] MEDS ORDERED: SODIUM CHLORIDE 0.9% 1000 ML 1,000 ML IV SCH (04:30)
[2020-07-22] MEDS ORDERED: HALOPERIDOL LACTATE 5 MG/1 ML INJ IM ONE (05:22)
[2020-07-22] MEDS ORDERED: HALOPERIDOL LACTATE 5 MG/1 ML INJ ONE (05:25)
[2020-07-22 09:46] LABS: Calcium 7.2 mg/dL (8.4-10.2)
--- NOTE | 2020-07-22 09:46 | Progress Note ---
Assessment and Plan 65 y/o female with altered mental state, hypotension, renal failure and electrolyte imbalance with UTI seen on urine analysis and presumptive sepsis with distributive shock. 07/22/20: Stop maintenance. Continue current abx therapy. Will start scheduled haldol therapy to see if this will hep mental sate. Suggest continuation of bicarb drip and will give a couple of amps of bicarb today. Follow up renal recs. Patient has moderate pulmonary hypertension seen on echo. Will obtain lung history once more awake or from . Could be related to underlying lung disease. CXR maybe more consistent with ILD than pulmonary edema. Will obtain CT of chest when more stable. Remove central line today and obtain peripheral access. Maybe stable enough for step down, will discuss on rounds. Can stop q6 hour BMP's. ONce off bipap can assess nutrition. 1. Needs more fluid resuscitation. Ordered for 2 more liters of saline now and additional to be bolused after rounds today 2. Agree with broad spec abx therapy follow up on cultures of urine and blood 3. Currently on bipap but hopeful we can wean as tolerated given improvement in mental status. 4. Spoke with renal and they agree with more volume and chemical management of hyperkalemia 5. Given CXR appearance and no other imaging, will obtain 2D echo as well. her hypotension could be from sepsis but need to make sure cardiac function is ok. She may need inotropic help with pressor requirement does not improve. 6. Continue to assess volume throughout the day 7. CMP q6 hours to monitor sodium and other electrolytes 8. ordered picc but likely will not happen today. continue right femoral groin line. 9. Hold on feeds given her pressor requirement and bipap requirement 10. DVT and GI prophylaxis. Guarded prognosis. CCT 31 minutes. Subjective Date of service: 07/22/20 Interval history: Off all pressors. Has a slightly worse metabolic acidosis likely from hyperchloremia from volume resuscitation. Still somewhat confused. ON bipap at 90%. Objective Vital Signs - 12hr 07/21/20 07/21/20 07/21/20 21:45 22:01 22:15 Temperature Pulse Rate 127 H 102 H 89 Pulse Rate [ Bilateral Throughout] Respiratory 25 H 24 11 L Rate Respiratory Rate [Bilateral Throughout] Blood Pressure 123/68 133/71 124/29 O2 Sat by Pulse 91 92 93 Oximetry 07/21/20 07/21/20 07/21/20 22:30 22:45 23:00 Temperature Pulse Rate 90 104 H 81 Pulse Rate [ Bilateral Throughout] Respiratory 11 L 13 12 Rate Respiratory Rate [Bilateral Throughout] Blood Pressure 133/67 136/80 134/78 O2 Sat by Pulse 95 95 94 Oximetry 07/21/20 07/21/20 07/21/20 23:15 23:30 23:33 Temperature 100.3 F H Pulse Rate 92 H 84 88 Pulse Rate [ Bilateral Throughout] Respiratory 14 12 24 Rate Respiratory Rate [Bilateral Throughout] Blood Pressure 136/78 131/80 131/80 O2 Sat by Pulse 95 96 97 Oximetry 07/21/20 07/22/20 07/22/20 23:45 00:00 00:15 Temperature Pulse Rate 95 H 98 H 99 H Pulse Rate [ Bilateral Throughout] Respiratory 14 12 14 Rate Respiratory Rate [Bilateral Throughout] Blood Pressure 140/61 127/64 133/72 O2 Sat by Pulse 94 94 96 Oximetry 07/22/20 07/22/20 07/22/20 00:31 00:45 01:00 Temperature Pulse Rate 105 H 87 86 Pulse Rate [ Bilateral Throughout] Respiratory 14 14 15 Rate Respiratory Rate [Bilateral Throughout] Blood Pressure 130/73 123/94 127/91 O2 Sat by Pulse 94 94 94 Oximetry 07/22/20 07/22/20 07/22/20 01:15 01:31 01:45 Temperature Pulse Rate 98 H 95 H 93 H Pulse Rate [ Bilateral Throughout] Respiratory 14 15 17 Rate Respiratory Rate [Bilateral Throughout] Blood Pressure 123/94 133/66 126/67 O2 Sat by Pulse 93 94 94 Oximetry 07/22/20 07/22/20 07/22/20 02:01 02:15 02:30 Temperature Pulse Rate 87 97 H 78 Pulse Rate [ 93 H Bilateral Throughout] Respiratory 17 16 14 Rate Respiratory 20 Rate [Bilateral Throughout] Blood Pressure 134/55 134/55 121/64 O2 Sat by Pulse 94 95 92 Oximetry 07/22/20 07/22/20 07/22/20 02:45 03:00 03:15 Temperature Pulse Rate 82 68 76 Pulse Rate [ Bilateral Throughout] Respiratory 14 14 16 Rate Respiratory Rate [Bilateral Throughout] Blood Pressure 139/64 144/57 144/60 O2 Sat by Pulse 93 92 93 Oximetry 07/22/20 07/22/20 07/22/20 03:16 03:31 03:45 Temperature 98.9 F Pulse Rate 87 85 Pulse Rate [ Bilateral Throughout] Respiratory 15 17 Rate Respiratory Rate [Bilateral Throughout] Blood Pressure 124/77 133/69 O2 Sat by Pulse 91 92 Oximetry 07/22/20 07/22/20 07/22/20 04:00 04:01 04:15 Temperature Pulse Rate 91 H 84 76 Pulse Rate [ Bilateral Throughout] Respiratory 26 H 19 15 Rate Respiratory Rate [Bilateral Throughout] Blood Pressure 133/79 137/67 145/77 O2 Sat by Pulse 96 92 93 Oximetry 07/22/20 07/22/20 07/22/20 04:30 04:45 05:01 Temperature Pulse Rate 79 71 91 H Pulse Rate [ Bilateral Throughout] Respiratory 15 15 21 Rate Respiratory Rate [Bilateral Throughout] Blood Pressure 139/57 144/50 134/71 O2 Sat by Pulse 91 92 89 Oximetry 07/22/20 07/22/20 07/22/20 05:15 05:31 05:45 Temperature Pulse Rate 76 91 H Pulse Rate [ Bilateral Throughout] Respiratory 16 24 Rate Respiratory Rate [Bilateral Throughout] Blood Pressure 134/71 150/111 150/111 O2 Sat by Pulse 90 92 93 Oximetry 07/22/20 07/22/20 07/22/20 06:01 06:15 07:41 Temperature 98.6 F Pulse Rate 66 77 Pulse Rate [ Bilateral Throughout] Respiratory 16 15 Rate Respiratory Rate [Bilateral Throughout] Blood Pressure 122/58 122/61 O2 Sat by Pulse 94 94 Oximetry 07/22/20 07/22/20 08:27 08:49 Temperature Pulse Rate 77 Pulse Rate [ 98 H Bilateral Throughout] Respiratory 19 Rate Respiratory 26 H Rate [Bilateral Throughout] Blood Pressure 122/61 O2 Sat by Pulse 94 Oximetry CBC and BMP: 07/21/20 04:00 07/22/20 02:00 ABG, PT/INR, D-dimer: ABG ABG pH 7.174 (7.320-7.450) L 07/21/20 23:59 POC ABG pCO2 41.9 mmHg (32.0-48.0) 07/21/20 23:59 POC ABG pO2 69.3 mmHg (83-108) L 07/21/20 23:59 POC ABG HCO3 15.1 07/21/20 23:59 ABG O2 Saturation 92.1 (0-100) 07/21/20 23:59 PT/INR, D-dimer PT 20.1 Sec. (12.2-14.9) H 07/20/20 19:32 INR 1.72 (0.87-1.13) H 07/20/20 19:32 D-Dimer 2098.49 ng/mlDDU (0-234) H 07/20/20 21:59 Abnormal lab findings: Abnormal Labs 07/20/20 07/20/20 07/20/20 19:20 19:27 19:27 WBC 17.9 H RBC MCV 102 H MCH 33 H Lymph % (Auto) 4.4 L Lymph # (Auto) 0.8 L Baso # (Auto) 0.3 H Seg Neutrophils % 90.0 H Lymphocytes % (Manual) Seg Neutrophils # 16.1 H Seg Neutrophils # Man Lymphocytes # (Manual) PT INR D-Dimer ABG pH POC ABG pO2 ABG Hemoglobin ABG Oxyhemoglobin ABG Sodium ABG Potassium ABG Glucose Sodium 130 L Potassium 5.6 H Chloride 84.4 L Carbon Dioxide 14 L BUN 108 H Creatinine 7.7 H Glucose POC Glucose 55 L Lactic Acid Calcium 7.4 L Ferritin AST 306 H ALT 97 H Ammonia Lactate Dehydrogenase Total Creatine Kinase CK-MB (CK-2) C-Reactive Protein Albumin 3.3 L Arterial Blood Glucose Arterial Blood Ionized Calcium Urine WBC (Auto) 07/20/20 07/20/20 07/20/20 19:27 19:27 19:32 WBC RBC MCV MCH Lymph % (Auto) Lymph # (Auto) Baso # (Auto) Seg Neutrophils % Lymphocytes % (Manual) Seg Neutrophils # Seg Neutrophils # Man Lymphocytes # (Manual) PT 20.1 H INR 1.72 H D-Dimer ABG pH POC ABG pO2 ABG Hemoglobin ABG Oxyhemoglobin ABG Sodium ABG Potassium ABG Glucose Sodium Potassium Chloride Carbon Dioxide BUN Creatinine Glucose POC Glucose Lactic Acid 3.10 H* Calcium Ferritin AST ALT Ammonia Lactate Dehydrogenase Total Creatine Kinase 14010 H CK-MB (CK-2) 289.0 H C-Reactive Protein Albumin Arterial Blood Glucose Arterial Blood Ionized Calcium Urine WBC (Auto) 07/20/20 07/20/20 07/20/20 19:52 19:59 20:41 WBC RBC MCV MCH Lymph % (Auto) Lymph # (Auto) Baso # (Auto) Seg Neutrophils % Lymphocytes % (Manual) Seg Neutrophils # Seg Neutrophils # Man Lymphocytes # (Manual) PT INR D-Dimer ABG pH 7.016 L POC ABG pO2 55.7 L ABG Hemoglobin ABG Oxyhemoglobin 81.6 L ABG Sodium 129.0 L ABG Potassium 5.0 H ABG Glucose 157 H Sodium Potassium Chloride Carbon Dioxide BUN Creatinine Glucose POC Glucose 108 H Lactic Acid Calcium Ferritin AST ALT Ammonia Lactate Dehydrogenase Total Creatine Kinase CK-MB (CK-2) C-Reactive Protein Albumin Arterial Blood Glucose 157 H Arterial Blood Ionized Calcium 3.9 L Urine WBC (Auto) > 182.0 H 07/20/20 07/20/20 07/20/20 21:59 21:59 21:59 WBC RBC MCV MCH Lymph % (Auto) Lymph # (Auto) Baso # (Auto) Seg Neutrophils % Lymphocytes % (Manual) Seg Neutrophils # Seg Neutrophils # Man Lymphocytes # (Manual) PT INR D-Dimer 2098.49 H ABG pH POC ABG pO2 ABG Hemoglobin ABG Oxyhemoglobin ABG Sodium ABG Potassium ABG Glucose Sodium Potassium Chloride Carbon Dioxide BUN Creatinine Glucose POC Glucose Lactic Acid Calcium Ferritin 1648.0 H AST ALT Ammonia Lactate Dehydrogenase 732 H Total Creatine Kinase CK-MB (CK-2) C-Reactive Protein 37.90 H Albumin Arterial Blood Glucose Arterial Blood Ionized Calcium Urine WBC (Auto) 07/20/20 07/21/20 07/21/20 23:35 01:56 04:00 WBC 15.1 H RBC 3.52 L MCV 100 H MCH 33 H Lymph % (Auto) Lymph # (Auto) Baso # (Auto) Seg Neutrophils % Lymphocytes % (Manual) 2.0 L Seg Neutrophils # Seg Neutrophils # Man 9.4 H Lymphocytes # (Manual) 0.3 L PT INR D-Dimer ABG pH POC ABG pO2 ABG Hemoglobin ABG Oxyhemoglobin ABG Sodium ABG Potassium ABG Glucose Sodium Potassium 5.8 H Chloride 95.4 L Carbon Dioxide 17 L BUN 100 H Creatinine 6.8 H Glucose 61 L POC Glucose 138 H Lactic Acid Calcium 6.3 L Ferritin AST ALT Ammonia Lactate Dehydrogenase Total Creatine Kinase CK-MB (CK-2) C-Reactive Protein Albumin Arterial Blood Glucose Arterial Blood Ionized Calcium Urine WBC (Auto) 07/21/20 07/21/20 07/21/20 04:00 05:24 06:06 WBC RBC MCV MCH Lymph % (Auto) Lymph # (Auto) Baso # (Auto) Seg Neutrophils % Lymphocytes % (Manual) Seg Neutrophils # Seg Neutrophils # Man Lymphocytes # (Manual) PT INR D-Dimer ABG pH POC ABG pO2 ABG Hemoglobin ABG Oxyhemoglobin ABG Sodium ABG Potassium ABG Glucose Sodium Potassium 6.1 H* Chloride 97.2 L Carbon Dioxide 21 L BUN 104 H Creatinine 6.7 H Glucose POC Glucose 121 H 124 H Lactic Acid Calcium 6.5 L Ferritin AST ALT Ammonia Lactate Dehydrogenase Total Creatine Kinase CK-MB (CK-2) C-Reactive Protein Albumin Arterial Blood Glucose Arterial Blood Ionized Calcium Urine WBC (Auto) 07/21/20 07/21/20 07/21/20 06:58 07:58 08:20 WBC RBC MCV MCH Lymph % (Auto) Lymph # (Auto) Baso # (Auto) Seg Neutrophils % Lymphocytes % (Manual) Seg Neutrophils # Seg Neutrophils # Man Lymphocytes # (Manual) PT INR D-Dimer ABG pH POC ABG pO2 ABG Hemoglobin ABG Oxyhemoglobin ABG Sodium ABG Potassium ABG Glucose Sodium Potassium Chloride Carbon Dioxide BUN Creatinine Glucose POC Glucose 128 H 133 H Lactic Acid Calcium Ferritin AST ALT Ammonia Lactate Dehydrogenase Total Creatine Kinase 13276 H CK-MB (CK-2) C-Reactive Protein Albumin Arterial Blood Glucose Arterial Blood Ionized Calcium Urine WBC (Auto) 07/21/20 07/21/20 07/21/20 09:15 09:31 10:09 WBC RBC MCV MCH Lymph % (Auto) Lymph # (Auto) Baso # (Auto) Seg Neutrophils % Lymphocytes % (Manual) Seg Neutrophils # Seg Neutrophils # Man Lymphocytes # (Manual) PT INR D-Dimer ABG pH 7.239 L POC ABG pO2 70.1 L ABG Hemoglobin 11.4 L ABG Oxyhemoglobin 92.6 L ABG Sodium 135.2 L ABG Potassium 5.1 H ABG Glucose 147 H Sodium Potassium Chloride Carbon Dioxide BUN Creatinine Glucose POC Glucose 129 H Lactic Acid Calcium Ferritin AST ALT Ammonia 24.0 L Lactate Dehydrogenase Total Creatine Kinase CK-MB (CK-2) C-Reactive Protein Albumin Arterial Blood Glucose 147 H Arterial Blood Ionized Calcium 3.4 L Urine WBC (Auto) 07/21/20 07/21/20 07/21/20 12:55 14:19 17:20 WBC RBC MCV MCH Lymph % (Auto) Lymph # (Auto) Baso # (Auto) Seg Neutrophils % Lymphocytes % (Manual) Seg Neutrophils # Seg Neutrophils # Man Lymphocytes # (Manual) PT INR D-Dimer ABG pH POC ABG pO2 ABG Hemoglobin ABG Oxyhemoglobin ABG Sodium ABG Potassium ABG Glucose Sodium Potassium Chloride Carbon Dioxide 20 L BUN 88 H Creatinine 4.0 H Glucose 166 H POC Glucose 157 H 172 H Lactic Acid Calcium 6.0 L Ferritin AST ALT Ammonia Lactate Dehydrogenase Total Creatine Kinase CK-MB (CK-2) C-Reactive Protein Albumin Arterial Blood Glucose Arterial Blood Ionized Calcium Urine WBC (Auto) 07/21/20 07/21/20 07/21/20 17:30 20:59 23:59 WBC RBC MCV MCH Lymph % (Auto) Lymph # (Auto) Baso # (Auto) Seg Neutrophils % Lymphocytes % (Manual) Seg Neutrophils # Seg Neutrophils # Man Lymphocytes # (Manual) PT INR D-Dimer ABG pH 7.174 L POC ABG pO2 69.3 L ABG Hemoglobin 11.9 L ABG Oxyhemoglobin 91.0 L ABG Sodium 134.0 L ABG Potassium 5.4 H ABG Glucose 60 L Sodium Potassium Chloride 110.0 H Carbon Dioxide 21 L BUN 72 H Creatinine 2.7 H Glucose 175 H POC Glucose 122 H Lactic Acid Calcium 5.6 L* Ferritin AST ALT Ammonia Lactate Dehydrogenase Total Creatine Kinase CK-MB (CK-2) C-Reactive Protein Albumin Arterial Blood Glucose 60 L Arterial Blood Ionized Calcium 3.6 L Urine WBC (Auto) 07/21/20 07/22/20 07/22/20 Unknown 02:00 02:03 WBC RBC MCV MCH Lymph % (Auto) Lymph # (Auto) Baso # (Auto) Seg Neutrophils % Lymphocytes % (Manual) Seg Neutrophils # Seg Neutrophils # Man Lymphocytes # (Manual) PT INR D-Dimer ABG pH POC ABG pO2 ABG Hemoglobin ABG Oxyhemoglobin ABG Sodium ABG Potassium ABG Glucose Sodium 146 H Potassium Chloride 109.9 H Carbon Dioxide BUN 56 H Creatinine 1.6 H Glucose 125 H POC Glucose 113 H Lactic Acid Calcium 6.5 L D Ferritin AST ALT Ammonia Lactate Dehydrogenase Total Creatine Kinase CK-MB (CK-2) C-Reactive Protein Albumin Arterial Blood Glucose Arterial Blood Ionized Calcium Urine WBC (Auto) 28.0 H 07/22/20 05:00 WBC RBC MCV MCH Lymph % (Auto) Lymph # (Auto) Baso # (Auto) Seg Neutrophils % Lymphocytes % (Manual) Seg Neutrophils # Seg Neutrophils # Man Lymphocytes # (Manual) PT INR D-Dimer ABG pH POC ABG pO2 ABG Hemoglobin ABG Oxyhemoglobin ABG Sodium ABG Potassium ABG Glucose Sodium Potassium Chloride Carbon Dioxide BUN Creatinine Glucose POC Glucose 122 H Lactic Acid Calcium Ferritin AST ALT Ammonia Lactate Dehydrogenase Total Creatine Kinase CK-MB (CK-2) C-Reactive Protein Albumin Arterial Blood Glucose Arterial Blood Ionized Calcium Urine WBC (Auto)
[2020-07-22] MEDS ORDERED: VANCOMYCIN/NS 1 GM/250 ML 1 GM/250 ML BAG IV SCH (10:00)
[2020-07-22 10:02] LABS: Hematocrit 30.7 % (30.3-42.9); Hemoglobin 10.5 gm/dl (10.1-14.3); Mean Corpuscular HGB Conc 34 % (30-34); Mean Corpuscular Volume 99 fl (79-97); Red Blood Count 3.11 M/mm3 (3.65-5.03)
[2020-07-22 10:05] LABS: Platelet Count 86 K/mm3 (140-440)
[2020-07-22] MEDS: HALOPERIDOL LACTATE 5 MG/1 ML INJ IV SCH ×2 (11:42→18:45)
[2020-07-22] MEDS: HEPARIN 5,000 UNIT/1 ML VIAL SUB-Q SCH ×2 (11:55→21:00)
[2020-07-22] MEDS: CEFEPIME/NS 2 GM/100 ML 2 GM/100 ML BAG IV SCH (11:55)
[2020-07-22] MEDS: FAMOTIDINE 20 MG/2 ML INJ IV SCH (11:55)
[2020-07-22] MEDS ORDERED: D5W/0.2% NACL 1,000 ML IV SCH (12:00)
[2020-07-22] MEDS ORDERED: LORazepam 2 MG/ML VIAL IV ONE (13:03)
[2020-07-22] MEDS ORDERED: ZIPRASIDONE MESYLATE 20 MG VIAL IM ONE ×2 (13:13→17:21)
[2020-07-22] MEDS ORDERED: WATER FOR INJ Sterile (PF) 10 ML ONE ×3 (13:45→21:59)
--- NOTE | 2020-07-22 14:55 | Progress Note ---
Assessment and Plan Assessment and plan: Sepsis -Presented with hypothermia, hypotension, metabolic acidosis, acute respiratory failure, tachycardia, UTI -ABX therapy -07/20 blood cultures and urine culture pending -07/20 urine analysis shows urinary tract infection -Infectious disease consulted, appreciate recommendations -07/21 echocardiogram shows mild concentric left ventricular hypertrophy, left ventricular ejection fraction 55 to 60%, moderate pulmonary hypertension, RVSP calculated at 52 mmHg Urinary tract infection -Noted on UA -Antibiotic therapy Acute renal failure -Nephrology consulted, appreciate recommendations -Strict intake and output -Serial BMPs -Avoid nephrotoxic medications -Renally dose medications Thrombocytopenia -07/22 platelets 86 -Hold chemical anticoagulation -Trend CBC -Possibly related to sepsis Rhabdomyolysis -S/p 3 units normal saline bolus in the emergency department, 9L NS bolus in CCU -Trend CK Acute respiratory failure -BiPAP therapy -ABGs as needed -Pulmonary hygiene -SPO2 monitoring Acute metabolic encephalopathy, improving -CT head shows small region of diffuse brain parenchymal attenuation observed along with the inferolateral occipital lobe (?represents an area of encephalomalacia but small area of vasogenic edema not excluded, follow-up MRI brain with and without contrast) -Supportive care Ground-level fall -C-spine shows no indication of fracture or traumatic subluxation, widespread cervical spondylosis with multifocal neuroforaminal stenosis -Supportive care Hypertension -Hold home antihypertensives in setting of hypotension -Blood pressure monitor per protocol Hepatitis C -Supportive care COVID-19 PUI, ruled out -Droplet/isolation precautions -ID and pulmonology consult -COVID-19 PCR negative -Abx per ID Hypotension, resolved -s/p Vasopressor support for maps greater than 65 -3L NS bolus in the ED, 9 L IVF in CCU Hyperkalemia, reolved -Treated with insulin, D50, calcium gluconate and Kionex -Trend BMP Hypothermia, resolved -Jesus hugger as needed Metabolic acidosis, resolved -s/p Bicarb infusion -Routine ABGs DVT/GI prophylaxis: Heparin subcu, SCDs to bilateral lower extremities while in bed, PPI Dispo: IMCU CODE STATUS: DNR/AND The high probability of a clinically significant, sudden or life threatening deterioration of the [multi] system(s) required my full and direct attention, intervention and personal management. The aggregate critical care time was [35] minutes. This time is in addition to time spent performing reported procedures but includes the following: [x] Data Review and interpretation [x] Patient assessment and monitoring of vital signs [x] Documentation [x] Medication orders and management History Interval history: This is a 65-year-old female with hepatitis C, migraines and hypertension who had presented to the emergency department on 07/21 with altered mental status after being found on the floor by family members. Upon evaluation in the emergency department patient was found to be hypothermic and hypotensive with leukocytosis and acute kidney failure consistent with sepsis. Patient also had elevated D- dimer, metabolic encephalopathy, lactic acidosis, hyperkalemia and rhabdomyolysis. Patient was admitted to the hospital service with sepsis, UTI, DOREEN, rhabdomyolysis, acute respiratory failure, metabolic acidosis, acute metabolic encephalopathy. Nephrology, infectious disease and critical care consulted. Sepsis Urinary tract infection Acute renal failure Rhabdomyolysis Hypernatremia Hyperchloremia Acute respiratory failure Acute metabolic encephalopathy Hypertension Hepatitis C Moderate pulmonary hypertension Thrombocytopenia 07/21: Patient received a total of 4 L normal saline, was started on vasopressin and remains on BiPAP. Patient was on Levophed and D5 normal saline and a bicarbonate drip. D5 normal saline was discontinued. We will obtain a p.m. BMP and serial BMPs. Patient was contacted and the patient is now on AND/DNR. 07/22: Patient received a total of 12 L IV bolus and has been weaned off of Levophed and vasopressin. Patient's kidney function has improved drastically. Patient has been started on scheduled Haldol and we obtained a baseline ECG.she was started on maintenance fluid overnight which was stopped today. Echocardiogram shows moderate pulmonary hypertension. [facility] would like to obtain a CT chest when more stable. RT is titrating BiPAP FiO2 as tolerated and we will assess for nutrition once off BiPAP.Patient now has hypernatremia, hyperchloremia and her BUN/creatinine has decreased to 53/1.4. Hospitalist Physical - Constitutional Vitals: Temp Pulse Resp BP Pulse Ox 97.5 F L 106 H 21 121/88 97 07/22/20 12:00 07/22/20 11:58 07/22/20 11:58 07/22/20 11:58 07/22/20 11:58 General appearance: Present: no acute distress - EENT Eyes: Present: PERRL ENT: poor dentition - Neck Neck: Present: normal ROM - Respiratory Respiratory effort: normal Respiratory: bilateral: CTA, diminished - Cardiovascular Rhythm: regular Heart Sounds: Present: S1 & S2. Absent: systolic murmur, diastolic murmur - Extremities Extremities: no ischemia, pulses intact, pulses symmetrical, No edema, normal temperature, normal color, Full ROM Peripheral Pulses: within normal limits - Abdominal General gastrointestinal: soft, non-tender, non-distended, normal bowel sounds - Integumentary Integumentary: Present: warm, dry - Psychiatric Psychiatric: agitated - Neurologic Neurologic: moves all extremities HEART Score - HEART Score Troponin: Troponin T 0.026 ng/mL (0.00-0.029) 07/20/20 19:27 Results - Labs CBC & Chem 7: 07/22/20 09:44 07/22/20 06:27 Labs: Laboratory Last Values WBC 10.0 K/mm3 (4.5-11.0) 07/22/20 09:44 RBC 3.11 M/mm3 (3.65-5.03) L 07/22/20 09:44 Hgb 10.5 gm/dl (10.1-14.3) 07/22/20 09:44 Hct 30.7 % (30.3-42.9) 07/22/20 09:44 MCV 99 fl (79-97) H 07/22/20 09:44 MCH 34 pg (28-32) H 07/22/20 09:44 MCHC 34 % (30-34) 07/22/20 09:44 RDW 14.0 % (13.2-15.2) 07/22/20 09:44 Plt Count 86 K/mm3 (140-440) L 07/22/20 09:44 Lymph % (Auto) 4.4 % (13.4-35.0) L 07/20/20 19:27 Wilson % (Auto) 2.1 % (0.0-7.3) 07/20/20 19:27 Eos % (Auto) 1.8 % (0.0-4.3) 07/20/20 19:27 Baso % (Auto) 1.7 % (0.0-1.8) 07/20/20 19:27 Lymph # (Auto) 0.8 K/mm3 (1.2-5.4) L 07/20/20 19:27 Wilson # (Auto) 0.4 K/mm3 (0.0-0.8) 07/20/20 19:27 Eos # (Auto) 0.3 K/mm3 (0.0-0.4) 07/20/20 19:27 Baso # (Auto) 0.3 K/mm3 (0.0-0.1) H 07/20/20 19:27 Add Manual Diff Complete 07/21/20 04:00 Total Counted 100 07/21/20 04:00 Seg Neutrophils % Remote Control Mirror Installer 07/21/20 04:00 Seg Neuts % (Manual) 62.0 % (40.0-70.0) 07/21/20 04:00 Band Neutrophils % 32.0 % 07/21/20 04:00 Lymphocytes % (Manual) 2.0 % (13.4-35.0) L 07/21/20 04:00 Monocytes % (Manual) 4.0 % (0.0-7.3) 07/21/20 04:00 Nucleated RBC % Not Reportable 07/21/20 04:00 Seg Neutrophils # 16.1 K/mm3 (1.8-7.7) H 07/20/20 19:27 Seg Neutrophils # Man 9.4 K/mm3 (1.8-7.7) H 07/21/20 04:00 Band Neutrophils # 4.8 K/mm3 07/21/20 04:00 Lymphocytes # (Manual) 0.3 K/mm3 (1.2-5.4) L 07/21/20 04:00 Abs React Lymphs (Man) 0.0 K/mm3 07/21/20 04:00 Monocytes # (Manual) 0.6 K/mm3 (0.0-0.8) 07/21/20 04:00 Eosinophils # (Manual) 0.0 K/mm3 (0.0-0.4) 07/21/20 04:00 Basophils # (Manual) 0.0 K/mm3 (0.0-0.1) 07/21/20 04:00 Metamyelocytes # 0.0 K/mm3 07/21/20 04:00 Myelocytes # 0.0 K/mm3 07/21/20 04:00 Promyelocytes # 0.0 K/mm3 07/21/20 04:00 Blast Cells # 0.0 K/mm3 07/21/20 04:00 WBC Morphology Not Reportable 07/21/20 04:00 Hypersegmented Neuts Not Reportable 07/21/20 04:00 Hyposegmented Neuts Not Reportable 07/21/20 04:00 Hypogranular Neuts Not Reportable 07/21/20 04:00 Smudge Cells Not Reportable 07/21/20 04:00 Toxic Granulation Not Reportable 07/21/20 04:00 Toxic Vacuolation Not Reportable 07/21/20 04:00 Dohle Bodies Not Reportable 07/21/20 04:00 Pelger-Huet Anomaly Not Reportable 07/21/20 04:00 Elia Rods Not Reportable 07/21/20 04:00 Platelet Estimate Consistent w auto 07/21/20 04:00 Clumped Platelets Not Reportable 07/21/20 04:00 Plt Clumps, EDTA Not Reportable 07/21/20 04:00 Large Platelets Not Reportable 07/21/20 04:00 Giant Platelets Not Reportable 07/21/20 04:00 Platelet Satelliting Not Reportable 07/21/20 04:00 Plt Morphology Comment Not Reportable 07/21/20 04:00 RBC Morphology Not Reportable 07/21/20 04:00 Dimorphic RBCs Not Reportable 07/21/20 04:00 Polychromasia Not Reportable 07/21/20 04:00 Hypochromasia Not Reportable 07/21/20 04:00 Poikilocytosis Not Reportable 07/21/20 04:00 Anisocytosis Not Reportable 07/21/20 04:00 Microcytosis Not Reportable 07/21/20 04:00 Macrocytosis Not Reportable 07/21/20 04:00 Spherocytes Not Reportable 07/21/20 04:00 Pappenheimer Bodies Not Reportable 07/21/20 04:00 Sickle Cells Not Reportable 07/21/20 04:00 Target Cells Not Reportable 07/21/20 04:00 Tear Drop Cells Not Reportable 07/21/20 04:00 Ovalocytes Not Reportable 07/21/20 04:00 Helmet Cells Not Reportable 07/21/20 04:00 [place] Bodies Not Reportable 07/21/20 04:00 Badger Rings Not Reportable 07/21/20 04:00 [place] Cells 1+ 07/21/20 04:00 Bite Cells Not Reportable 07/21/20 04:00 Crenated Cell Not Reportable 07/21/20 04:00 Elliptocytes Not Reportable 07/21/20 04:00 Acanthocytes (Spur) Not Reportable 07/21/20 04:00 Rouleaux Not Reportable 07/21/20 04:00 Hemoglobin C Crystals Not Reportable 07/21/20 04:00 Schistocytes Not Reportable 07/21/20 04:00 Malaria parasites Not Reportable 07/21/20 04:00 Junior Bodies Not Reportable 07/21/20 04:00 Hem Pathologist Commnt No 07/21/20 04:00 PT 20.1 Sec. (12.2-14.9) H 07/20/20 19:32 INR 1.72 (0.87-1.13) H 07/20/20 19:32 APTT 33.7 Sec. (24.2-36.6) 07/20/20 19:32 D-Dimer 2098.49 ng/mlDDU (0-234) H 07/20/20 21:59 ABG pH 7.174 (7.320-7.450) L 07/21/20 23:59 POC ABG pCO2 41.9 mmHg (32.0-48.0) 07/21/20 23:59 POC ABG pO2 69.3 mmHg (83-108) L 07/21/20 23:59 POC ABG HCO3 15.1 07/21/20 23:59 ABG O2 Saturation 92.1 (0-100) 07/21/20 23:59 POC ABG Base Excess -12.8 07/21/20 23:59 ABG Hemoglobin 11.9 (12.0-17.5) L 07/21/20 23:59 ABG Oxyhemoglobin 91.0 (94-98) L 07/21/20 23:59 ABG Methemoglobin 0.3 (0.0-1.5) 07/21/20 23:59 ABG Sodium 134.0 mmol/L (136.0-145.0) L 07/21/20 23:59 ABG Potassium 5.4 mmol/L (3.40-4.50) H 07/21/20 23:59 ABG Chloride 100.0 mmol/L (98-107) 07/21/20 23:59 ABG Glucose 60 mg/dL (65-95) L 07/21/20 23:59 Carboxyhemoglobin 0.9 (0.5-1.5) 07/21/20 23:59 FiO2 % 50.0 07/21/20 23:59 Sodium 148 mmol/L (137-145) H 07/22/20 06:27 Potassium 4.0 mmol/L (3.6-5.0) 07/22/20 06:27 Chloride 111.3 mmol/L (98-107) H 07/22/20 06:27 Carbon Dioxide 27 mmol/L (22-30) 07/22/20 06:27 Anion Gap 14 mmol/L 07/22/20 06:27 BUN 53 mg/dL (7-17) H 07/22/20 06:27 Creatinine 1.4 mg/dL (0.6-1.2) H 07/22/20 06:27 Estimated GFR 38 ml/min 07/22/20 06:27 BUN/Creatinine Ratio 38 % 07/22/20 06:27 Glucose 135 mg/dL (65-100) H 07/22/20 06:27 POC Glucose 126 mg/dL (70-105) H 07/22/20 11:56 Lactic Acid 1.90 mmol/L (0.7-2.0) 07/20/20 21:59 Calcium 7.2 mg/dL (8.4-10.2) L 07/22/20 06:27 Ferritin 1648.0 ng/mL (10.0-200.0) H 07/20/20 21:59 Total Bilirubin 0.20 mg/dL (0.1-1.2) 07/20/20 19:27 AST 306 units/L (5-40) H 07/20/20 19:27 ALT 97 units/L (7-56) H 07/20/20 19:27 Alkaline Phosphatase 94 units/L (35-129) 07/20/20 19:27 Ammonia 24.0 umol/L (25-60) L 07/21/20 09:31 Lactate Dehydrogenase 732 units/L (91-180) H 07/20/20 21:59 Total Creatine Kinase 80972 units/L (30-135) H 07/21/20 08:20 CK-MB (CK-2) 289.0 ng/mL (0.0-4.0) H 07/20/20 19: CK-MB (CK-2) Rel Index 2.0 (0-4) 07/20/20 19: Troponin T 0.026 ng/mL (0.00-0.029) 07/20/20 19: C-Reactive Protein 37.90 mg/dL (0.00-1.30) H 07/20/20 21:59 Total Protein 6.7 g/dL (6.3-8.2) 07/20/20 19: Albumin 3.3 g/dL (3.9-5) L 07/20/20 19: Albumin/Globulin Ratio 1.0 % 07/20/20 19: Procalcitonin 40.67 ng/mL (<0.15) 07/20/20 21:59 TSH 0.454 mlU/mL (0.270-4.200) 07/20/20 19: Free T4 0.87 ng/dL (0.76-1.46) 07/20/20 19:27 Arterial Blood Glucose 60 mg/dL (65-95) L 07/21/20 23:59 Arterial Blood Ionized Calcium 3.6 mg/dL (4.6-5.3) L 07/21/20 23:59 Urine Color Yellow (Yellow) 07/21/20 Unknown Urine Turbidity Cloudy (Clear) 07/21/20 Unknown Urine pH 5.0 (5.0-7.0) 07/21/20 Unknown Ur Specific Cyrus 1.013 (1.003-1.030) 07/21/20 Unknown Urine Protein 30 mg/dl mg/dL (Negative) 07/21/20 Unknown Urine Glucose (UA) Neg mg/dL (Negative) 07/21/20 Unknown Urine Ketones Neg mg/dL (Negative) 07/21/20 Unknown Urine Blood Lg (Negative) 07/21/20 Unknown Urine Nitrite Neg (Negative) 07/21/20 Unknown Urine Bilirubin Neg (Negative) 07/21/20 Unknown Urine Urobilinogen < 2.0 mg/dL (<2.0) 07/21/20 Unknown Ur Leukocyte Esterase Sm (Negative) 07/21/20 Unknown Urine WBC (Auto) 28.0 /HPF (0.0-6.0) H 07/21/20 Unknown Urine RBC (Auto) 89.0 /HPF (0.0-6.0) 07/21/20 Unknown U Epithel Cells (Auto) 1.0 /HPF (0-13.0) 07/21/20 Unknown Urine WBC Clumps 2+ /HPF 07/21/20 Unknown Hyaline Casts 9 /LPF 07/21/20 Unknown Urine Mucus Few /HPF 07/21/20 Unknown Urine Yeast (Budding) 3+ /HPF 07/20/20 19:52 Urine Eosinophils None seen (None Seen) 07/21/20 Unknown Urine Creatinine < 4.2 mg/dL (0.1-20.0) 07/21/20 Unknown Urine Sodium 10 mmol/L 07/21/20 Unknown Random Vancomycin 4.7 ug/mL (0-40.0) 07/22/20 06:27 Urine Opiates Screen Positive 07/20/20 19:52 Urine Methadone Screen Negative 07/20/20 19:52 Ur Barbiturates Screen Negative 07/20/20 19:52 Ur Phencyclidine Scrn Negative 07/20/20 19:52 Ur Amphetamines Screen Negative 07/20/20 19:52 U Benzodiazepines Scrn Positive 07/20/20 19:52 Urine Cocaine Screen Negative 07/20/20 19:52 U Marijuana (THC) Screen Negative 07/20/20 19:52 Drugs of Abuse Note Disclamer 07/20/20 19:52 Coronavirus (PCR) Negative (Negative) 07/21/20 08:20 Blood Type O POSITIVE 07/20/20 23:15 Antibody Screen Negative 07/20/20 23:15 Microbiology: Microbiology 07/20/20 Unknown Urine,Clean Catch Urine Culture - Preliminary Gram Negative Onel 07/20/20 19:32 Peripheral/Venous Blood Culture - Preliminary NO GROWTH AFTER 24 HOURS 07/20/20 19:27 Peripheral/Venous Blood Culture - Preliminary NO GROWTH AFTER 24 HOURS Russell/IV: Voiding Method Indwelling Catheter Active Medications - Current Medications Current Medications: Generic Name Dose Route Start Last Admin Trade Name Freq PRN Reason Stop Dose Admin Acetaminophen 650 mg 07/20/20 22:51 Acetaminophen 325 Mg/10.15 Ml Oral Liqd Unit Dose FEEDTUBE Q6H PRN Pain MILD(1-3)/Fever >100.5/HESS Albuterol/Ipratropium 1 ampul 03/24/21 23:00 07/22/20 08:48 Ipratropium/Albuterol Sulfate 3 Ml Ampul.Neb IH 1 ampul Q6HRT HONEY Administration Famotidine 20 mg 07/20/20 23:00 07/22/20 11:55 Famotidine 20 Mg/2 Ml Inj IV 20 mg QAM HONEY Administration Haloperidol Lactate 5 mg 07/22/20 12:00 07/22/20 11:42 Haloperidol Lactate 5 Mg/1 Ml Inj IV 5 mg Q6H HONEY Administration Heparin Sodium (Porcine) 5,000 unit 07/21/20 10:00 07/22/20 11:55 Heparin 5,000 Unit/1 Ml Vial SUB-Q 5,000 unit Q12HR HONEY Administration Cefepime HCl 2 gm in 100 mls @ 200 mls/hr 07/21/20 10:00 07/22/20 11:55 Cefepime/Ns 2 Gm/100 Ml IV 07/27/20 10:29 200 mls/hr Q24HR HONEY Administration Protocol Dextrose/Sodium Chloride 1,000 mls @ 50 mls/hr 07/22/20 12:00 D5ns 0.2% IV DIRECT HONEY Metoclopramide HCl 5 mg 07/20/20 22:51 Metoclopramide 10 Mg/2 Ml Inj IV Q6H PRN Nausea And Vomiting Sodium Chloride 10 ml 07/21/20 10:00 07/22/20 11:56 Sodium Chloride 0.9% 10 Ml Flush Syringe IV 10 ml BID HONEY Administration Sodium Chloride 10 ml 07/20/20 22:51 Sodium Chloride 0.9% 10 Ml Flush Syringe IV PRN PRN LINE FLUSH Nutrition/Malnutrition Assess - Dietary Evaluation Nutrition/Malnutrition Findings: Nutrition Notes Start: 07/22/20 12:24 Freq: Status: Active Protocol: Document 07/22/20 12:24 LP (Rec: 07/22/20 12:30 LP [id number]) Nutrition Notes 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 Pt possibly going to hospice. No plans to feed at this time. Burn Absent Trauma Absent GI Symptoms Last BM Current % PO Negligible Minimum of two criteria No physical signs of malnutrition #1 Nutrition Diagnosis Inadequate oral intake Etiology AMS As Evidenced by Signs and Symptoms Pt currently NPO Is patient on ventilator? No Is Patient Ambulatory and/or Out of Bed No REE-([facility]-confined to bed) 1258.560 Calculation Used for Recommendations [facility] Additional Notes Protein needs are 64-106g (1.2 -2g/kg) Fluid needs are 1ml/kcal Nutrition Intervention Change Diet Order: comfort measures or TF Goal #1 Consult for TF or comfort care Anticipated Discharge Needs: Unable to determine at this time Follow-Up By: 07/25/20 Additional Comments Follow for POC
--- NOTE | 2020-07-22 19:24 | Progress Note ---
Assessment and Plan Impression: * Nonoliguric DOREEN secondary to multifactorial etiologies: prerenal component due to volume depletion vs ATN (sepsis) * Acute hypoxic respiratory failure * Sepsis * UTI, GNR * Acute encephelopathy * Uremia * Hyperkalemia * Acidosis, respiratory w/ inadequate metabolic compensation Plan: * Renal function improved with volume resuscitation. No acute indication for renal replacement therapy at this time. Continue conservative management * Continue IVF - currently receiving 1/4 NS * Abx per primary team * Pressors prn to maintain MAP>65 * Avoid potential nephrotoxins * Dose medications for renal function * AM labs Subjective Date of service: 07/22/20 Interval history: Chart, vitals, labs reviewed. Patient currently on BiPAP. Objective - Vital Signs Vital signs: Vital Signs - 12hr 07/22/20 07/22/20 07/22/20 07:30 07:41 07:45 Temperature 98.6 F Pulse Rate 76 69 Pulse Rate [ Bilateral Throughout] Pulse Rate [ From Monitor] Respiratory 16 16 Rate Respiratory Rate [Bilateral Throughout] Blood Pressure 137/61 137/61 O2 Sat by Pulse 94 94 Oximetry 07/22/20 07/22/20 07/22/20 08:00 08:15 08:27 Temperature Pulse Rate 77 68 77 Pulse Rate [ Bilateral Throughout] Pulse Rate [ 69 From Monitor] Respiratory 15 15 19 Rate Respiratory Rate [Bilateral Throughout] Blood Pressure 135/57 147/54 122/61 O2 Sat by Pulse 94 96 94 Oximetry 07/22/20 07/22/20 07/22/20 08:31 08:45 08:49 Temperature Pulse Rate 69 66 Pulse Rate [ 98 H Bilateral Throughout] Pulse Rate [ From Monitor] Respiratory 16 16 Rate Respiratory 26 H Rate [Bilateral Throughout] Blood Pressure 115/57 115/57 O2 Sat by Pulse 95 96 Oximetry 07/22/20 07/22/20 07/22/20 09:01 09:15 09:31 Temperature Pulse Rate 86 81 76 Pulse Rate [ Bilateral Throughout] Pulse Rate [ From Monitor] Respiratory 16 16 16 Rate Respiratory Rate [Bilateral Throughout] Blood Pressure 126/74 126/74 126/74 O2 Sat by Pulse 94 94 94 Oximetry 07/22/20 07/22/20 07/22/20 09:45 10:00 10:15 Temperature Pulse Rate 68 74 67 Pulse Rate [ Bilateral Throughout] Pulse Rate [ From Monitor] Respiratory 14 17 16 Rate Respiratory Rate [Bilateral Throughout] Blood Pressure 126/74 129/67 129/67 O2 Sat by Pulse 94 95 94 Oximetry 07/22/20 07/22/20 07/22/20 10:31 10:45 11:01 Temperature Pulse Rate 74 68 84 Pulse Rate [ Bilateral Throughout] Pulse Rate [ From Monitor] Respiratory 17 16 23 Rate Respiratory Rate [Bilateral Throughout] Blood Pressure 129/67 129/67 129/67 O2 Sat by Pulse 94 95 97 Oximetry 07/22/20 07/22/20 07/22/20 11:15 11:31 11:45 Temperature Pulse Rate 86 Pulse Rate [ Bilateral Throughout] Pulse Rate [ From Monitor] Respiratory 24 Rate Respiratory Rate [Bilateral Throughout] Blood Pressure 140/99 140/99 140/99 O2 Sat by Pulse 98 95 95 Oximetry 07/22/20 07/22/20 07/22/20 11:58 12:00 12:15 Temperature 97.5 F L Pulse Rate 106 H 108 H 81 Pulse Rate [ Bilateral Throughout] Pulse Rate [ From Monitor] Respiratory 21 22 24 Rate Respiratory Rate [Bilateral Throughout] Blood Pressure 121/88 121/89 121/89 O2 Sat by Pulse 97 93 94 Oximetry 07/22/20 07/22/20 07/22/20 12:31 12:45 13:01 Temperature Pulse Rate 117 H 111 H 120 H Pulse Rate [ Bilateral Throughout] Pulse Rate [ From Monitor] Respiratory 21 28 H 31 H Rate Respiratory Rate [Bilateral Throughout] Blood Pressure 121/89 121/89 121/89 O2 Sat by Pulse 94 96 96 Oximetry 07/22/20 07/22/20 07/22/20 13:15 13:30 13:46 Temperature Pulse Rate 128 H 68 Pulse Rate [ Bilateral Throughout] Pulse Rate [ From Monitor] Respiratory 21 34 H 22 Rate Respiratory Rate [Bilateral Throughout] Blood Pressure 121/89 O2 Sat by Pulse 93 94 94 Oximetry 07/22/20 07/22/20 07/22/20 14:01 14:15 14:31 Temperature Pulse Rate 98 H 79 109 H Pulse Rate [ Bilateral Throughout] Pulse Rate [ From Monitor] Respiratory 19 22 28 H Rate Respiratory Rate [Bilateral Throughout] Blood Pressure 161/88 161/88 161/88 O2 Sat by Pulse 94 95 96 Oximetry 07/22/20 07/22/20 07/22/20 14:45 15:01 15:15 Temperature Pulse Rate 80 68 Pulse Rate [ Bilateral Throughout] Pulse Rate [ From Monitor] Respiratory 19 Rate Respiratory Rate [Bilateral Throughout] Blood Pressure 161/88 161/88 161/88 O2 Sat by Pulse 97 93 94 Oximetry 07/22/20 07/22/20 07/22/20 15:18 15:31 15:45 Temperature Pulse Rate 111 H 86 Pulse Rate [ 95 H Bilateral Throughout] Pulse Rate [ From Monitor] Respiratory Rate Respiratory 28 H Rate [Bilateral Throughout] Blood Pressure 161/88 161/88 O2 Sat by Pulse 93 94 Oximetry 07/22/20 07/22/20 07/22/20 16:00 16:01 16:15 Temperature Pulse Rate 105 H 124 H Pulse Rate [ Bilateral Throughout] Pulse Rate [ 79 From Monitor] Respiratory Rate Respiratory Rate [Bilateral Throughout] Blood Pressure 161/88 161/88 O2 Sat by Pulse 94 97 96 Oximetry - General Appearance General appearance: well-developed, other (on bipap) EENT: ATNC Respiratory: Present: Other (coarse BS) Cardiology: regular, S1S2 Gastrointestinal: normal, no tenderness, no distended Neurologic: other (agitated) Musculoskeletal: other (no edema) - Lab 07/22/20 09:44 07/22/20 15:19 Most recent lab results ABG pH 7.423 (7.320-7.450) 07/22/20 11:00 ABG O2 Saturation 95.2 (0-100) 07/22/20 11:00 Calcium 7.2 mg/dL (8.4-10.2) L 07/22/20 06:27 Urine Creatinine < 4.2 mg/dL (0.1-20.0) 07/21/20 Unknown Urine Sodium 10 mmol/L 07/21/20 Unknown Medications & Allergies - Medications Allergies/Adverse Reactions: Allergies Iodine and Iodide Containing Produc Adverse Reaction (Verified 10/26/18 10:10) Rash Home Medications: Home Medications Medication Instructions Recorded Confirmed Last Taken Type Ondansetron [Zofran TAB] 4 mg PO Q8HR PRN #15 tablet 07/17/17 Unknown Rx Ibuprofen [Motrin 600 MG tab] 600 mg PO Q8H PRN #30 tablet 01/18/18 Unknown Rx Sulfamethoxazole/Trimethoprim 1 each PO BID 10 Days #20 tablet 01/18/18 Unknown Rx [Bactrim DS TAB] cephALEXin [Keflex] 500 mg PO Q12HR #20 capsule 01/18/18 Unknown Rx Famotidine [Pepcid] 20 mg PO BID #10 tablet 05/17/18 Unknown Rx Mag Hydrox/Aluminum Hyd/Simeth 15 ml PO QID #1 oral.susp 05/17/18 Unknown Rx [Maalox Advanced Suspension] Ondansetron [Zofran ODT TAB] 8 mg PO Q12HR #20 tab.rapdis 05/17/18 Unknown Rx Acetaminophen/Codeine [Tylenol 1 tab PO Q6H PRN #12 tab 10/26/18 Unknown Rx /Codeine # 3 tab] Clindamycin [Clindamycin CAP] 300 mg PO Q8H #21 cap 10/26/18 Unknown Rx Esomeprazole Magnesium [NexIUM] 40 mg PO QDAY 20 Days #20 06/04/19 Unknown Rx capsule. Active Medications: Generic Name Dose Route Start Last Admin Trade Name Freq PRN Reason Stop Dose Admin Acetaminophen 650 mg 07/20/20 22:51 Acetaminophen 325 Mg/10.15 Ml Oral Liqd Unit Dose FEEDTUBE Q6H PRN Pain MILD(1-3)/Fever >100.5/HESS Albuterol/Ipratropium 1 ampul 07/20/20 23:00 07/22/20 15:18 Ipratropium/Albuterol Sulfate 3 Ml Ampul.Neb IH 1 ampul Q6HRT HONEY Administration Famotidine 20 mg 07/20/20 23:00 07/22/20 11:55 Famotidine 20 Mg/2 Ml Inj IV 20 mg QAM HONEY Administration Haloperidol Lactate 5 mg 07/22/20 12:00 07/22/20 18:45 Haloperidol Lactate 5 Mg/1 Ml Inj IV 5 mg Q6H HONEY Administration Heparin Sodium (Porcine) 5,000 unit 07/21/20 10:00 07/22/20 11:55 Heparin 5,000 Unit/1 Ml Vial SUB-Q 5,000 unit Q12HR HONEY Administration Cefepime HCl 2 gm in 100 mls @ 200 mls/hr 07/21/20 10:00 07/22/20 11:55 Cefepime/Ns 2 Gm/100 Ml IV 07/27/20 10:29 200 mls/hr Q24HR HONEY Administration Protocol Dextrose/Sodium Chloride 1,000 mls @ 50 mls/hr 07/22/20 12:00 D5ns 0.2% IV DIRECT HONEY Metoclopramide HCl 5 mg 07/20/20 22:51 Metoclopramide 10 Mg/2 Ml Inj IV Q6H PRN Nausea And Vomiting Sodium Chloride 10 ml 07/21/20 10:00 07/22/20 11:56 Sodium Chloride 0.9% 10 Ml Flush Syringe IV 10 ml BID HONEY Administration Sodium Chloride 10 ml 07/20/20 22:51 Sodium Chloride 0.9% 10 Ml Flush Syringe IV PRN PRN LINE FLUSH Ziprasidone 10 mg 07/22/20 16:21 Ziprasidone Mesylate 20 Mg Vial IM Q4H PRN Agitation
[2020-07-22] MEDS: ZIPRASIDONE MESYLATE 20 MG VIAL IM PRN (22:03)
[2020-07-23] MEDS: HALOPERIDOL LACTATE 5 MG/1 ML INJ IV SCH ×4 (00:03→18:48)
[2020-07-23] MEDS ORDERED: MORPHINE 2 MG/1 ML INJ IV ONE (01:48)
[2020-07-23] MEDS ORDERED: WATER FOR INJ Sterile (PF) 10 ML ONE (02:28)
[2020-07-23] MEDS: ZIPRASIDONE MESYLATE 20 MG VIAL IM PRN (02:31)
[2020-07-23 05:27] LABS: Hematocrit 34.2 % (30.3-42.9); Hemoglobin 11.5 gm/dl (10.1-14.3); Mean Corpuscular HGB Conc 34 % (30-34); Mean Corpuscular Volume 99 fl (79-97); Red Blood Count 3.47 M/mm3 (3.65-5.03); Red Cell Distribution Width 13.6 % (13.2-15.2)
[2020-07-23 05:32] LABS: BUN/Creatinine Ratio 43; Blood Urea Nitrogen 34 mg/dL (7-17); Calcium 7.8 mg/dL (8.4-10.2); Hemolysis Index 3
[2020-07-23 05:35] LABS: Platelet Count 98 K/mm3 (140-440)
[2020-07-23] MEDS: IPRATROPIUM/ALBUTEROL SULFATE 3 ML AMPUL.NEB IH SCH ×4 (05:51→19:36)
[2020-07-23] MEDS ORDERED: LORazepam 2 MG/ML VIAL ONE (08:43)
--- NOTE | 2020-07-23 09:42 | Progress Note ---
Assessment and Plan Assessment and plan: Sepsis -Presented with hypothermia, hypotension, metabolic acidosis, acute respiratory failure, tachycardia, UTI -ABX therapy -07/20 blood cultures and urine culture pending -07/20 urine analysis shows urinary tract infection -Infectious disease consulted, appreciate recommendations -07/21 echocardiogram shows mild concentric left ventricular hypertrophy, left ventricular ejection fraction 55 to 60%, moderate pulmonary hypertension, RVSP calculated at 52 mmHg Urinary tract infection -Noted on UA -Antibiotic therapy Acute renal failure -Nephrology consulted, appreciate recommendations -Strict intake and output -Serial BMPs -Avoid nephrotoxic medications -Renally dose medications Thrombocytopenia -07/22 platelets 86 -Hold chemical anticoagulation -Trend CBC -Possibly related to sepsis Rhabdomyolysis -S/p 3 units normal saline bolus in the emergency department, 9L NS bolus in CCU -Trend CK Acute respiratory failure -BiPAP therapy -ABGs as needed -Pulmonary hygiene -SPO2 monitoring Acute metabolic encephalopathy, improving -CT head shows small region of diffuse brain parenchymal attenuation observed along with the inferolateral occipital lobe (?represents an area of encephalomalacia but small area of vasogenic edema not excluded, follow-up MRI brain with and without contrast) -Supportive care Ground-level fall -C-spine shows no indication of fracture or traumatic subluxation, widespread cervical spondylosis with multifocal neuroforaminal stenosis -Supportive care Hypertension -Hold home antihypertensives in setting of hypotension -Blood pressure monitor per protocol Hepatitis C -Supportive care COVID-19 PUI, ruled out -Droplet/isolation precautions -ID and pulmonology consult -COVID-19 PCR negative -Abx per ID Hypotension, resolved -s/p Vasopressor support for maps greater than 65 -3L NS bolus in the ED, 9 L IVF in CCU Hyperkalemia, reolved -Treated with insulin, D50, calcium gluconate and Kionex -Trend BMP Hypothermia, resolved -Jesus hugger as needed Metabolic acidosis, resolved -s/p Bicarb infusion -Routine ABGs DVT/GI prophylaxis: Heparin subcu, SCDs to bilateral lower extremities while in bed, PPI Dispo: IMCU CODE STATUS: DNR/AND The high probability of a clinically significant, sudden or life threatening deterioration of the [multi] system(s) required my full and direct attention, intervention and personal management. The aggregate critical care time was [35] minutes. This time is in addition to time spent performing reported procedures but includes the following: [x] Data Review and interpretation [x] Patient assessment and monitoring of vital signs [x] Documentation [x] Medication orders and management History Interval history: This is a 65-year-old female with hepatitis C, migraines and hypertension who had presented to the emergency department on 07/21 with altered mental status after being found on the floor by family members. Upon evaluation in the emergency department patient was found to be hypothermic and hypotensive with leukocytosis and acute kidney failure consistent with sepsis. Patient also had elevated D- dimer, metabolic encephalopathy, lactic acidosis, hyperkalemia and rhabdomyolysis. Patient was admitted to the hospital service with sepsis, UTI, DOREEN, rhabdomyolysis, acute respiratory failure, metabolic acidosis, acute metabolic encephalopathy. Nephrology, infectious disease and critical care consulted. Sepsis Urinary tract infection Acute renal failure Rhabdomyolysis Hypernatremia Hyperchloremia Acute respiratory failure Acute metabolic encephalopathy Hypertension Hepatitis C Moderate pulmonary hypertension Thrombocytopenia 07/21: Patient received a total of 4 L normal saline, was started on vasopressin and remains on BiPAP. Patient was on Levophed and D5 normal saline and a bicarbonate drip. D5 normal saline was discontinued. We will obtain a p.m. BMP and serial BMPs. Patient was contacted and the patient is now on AND/DNR. 07/22: Patient received a total of 12 L IV bolus and has been weaned off of Levophed and vasopressin. Patient's kidney function has improved drastically. Patient has been started on scheduled Haldol and we obtained a baseline ECG.she was started on maintenance fluid overnight which was stopped today. Echocardiogram shows moderate pulmonary hypertension. [facility] would like to obtain a CT chest when more stable. RT is titrating BiPAP FiO2 as tolerated and we will assess for nutrition once off BiPAP.Patient now has hypernatremia, hyperchloremia and her BUN/creatinine has decreased to 53/1.4. 07/23/2020; patient is still on BiPAP, agitated and confused. Kidney function improved. Patient was on Haldol and Geodon which did not help. Put the patient on Ativan as needed this morning. I have a long discussion with her yesterday and she does not want any heroic measures to be done. Does not want NG tube to be placed. Patient is DNR/DNI. Patient has UTI and on cefepime. Patient prognosis is guarded. Patient has hypernatremia and placed on D5 0.2% normal saline but no improvement. Hypokalemia, repleted according to electrolyte protocol. Patient prognosis is very poor. Patient is gasping for air. History Interval history: Patient was seen and evaluated this morning Patient was confused and agitated Patient was given Geodon and Haldol which did not help with agitation Hospitalist Physical - Physical exam Narrative exam: Patient is on BiPAP The patient appeared well nourished and normally developed. Vital signs as documented. Head exam is unremarkable. No scleral icterus . Neck is without jugular venous distension, thyromegaly, or carotid bruits. Lungs are on BiPAP, gasping for air. Cardiac exam reveals regular rate and Rhythm. Abdominal exam reveals normal bowel sounds, nontender, no organomegaly. Extremities are nonedematous and both femoral and pedal pulses are normal. 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 - Constitutional Vitals: Temp Pulse Resp BP Pulse Ox 97.5 F L 107 H 33 H 174/87 90 07/23/20 08:00 07/23/20 05:54 07/23/20 05:54 07/23/20 05:01 07/23/20 05:54 General appearance: Present: no acute distress HEART Score - HEART Score Troponin: Troponin T 0.026 ng/mL (0.00-0.029) 07/20/20 19:27 Results - Labs CBC & Chem 7: 07/23/20 04:48 07/23/20 04:48 Labs: Laboratory Last Values WBC 13.2 K/mm3 (4.5-11.0) H 07/23/20 04:48 RBC 3.47 M/mm3 (3.65-5.03) L 07/23/20 04:48 Hgb 11.5 gm/dl (10.1-14.3) 07/23/20 04:48 Hct 34.2 % (30.3-42.9) 07/23/20 04:48 MCV 99 fl (79-97) H 07/23/20 04:48 MCH 33 pg (28-32) H 07/23/20 04:48 MCHC 34 % (30-34) 07/23/20 04:48 RDW 13.6 % (13.2-15.2) 07/23/20 04:48 Plt Count 98 K/mm3 (140-440) L 07/23/20 04:48 Lymph % (Auto) 4.4 % (13.4-35.0) L 07/20/20 19: [place] % (Auto) 2.1 % (0.0-7.3) 07/20/20 19: Eos % (Auto) 1.8 % (0.0-4.3) 07/20/20: Baso % (Auto) 1.7 % (0.0-1.8) 07/20/20 19: Lymph # (Auto) 0.8 K/mm3 (1.2-5.4) L 07/20/20: [place] # (Auto) 0.4 K/mm3 (0.0-0.8) 07/20/20: Eos # (Auto) 0.3 K/mm3 (0.0-0.4) 07/20/20: Baso # (Auto) 0.3 K/mm3 (0.0-0.1) H 07/20/20 19: Add Manual Diff Complete 07/21/20 04:00 Total Counted 100 07/21/20 04:00 Seg Neutrophils % [employer] Kinder[employer] Teacher 07/21/20 04:00 Seg Neuts % (Manual) 62.0 % (40.0-70.0) 07/21/20 04:00 Band Neutrophils % 32.0 % 07/21/20 04:00 Lymphocytes % (Manual) 2.0 % (13.4-35.0) L 07/21/20 04:00 Monocytes % (Manual) 4.0 % (0.0-7.3) 07/21/20 04:00 Nucleated RBC % Not Reportable 07/21/20 04:00 Seg Neutrophils # 16.1 K/mm3 (1.8-7.7) H 07/20/20 19:27 Seg Neutrophils # Man 9.4 K/mm3 (1.8-7.7) H 07/21/20 04:00 Band Neutrophils # 4.8 K/mm3 07/21/20 04:00 Lymphocytes # (Manual) 0.3 K/mm3 (1.2-5.4) L 07/21/20 04:00 Abs React Lymphs (Man) 0.0 K/mm3 07/21/20 04:00 Monocytes # (Manual) 0.6 K/mm3 (0.0-0.8) 07/21/20 04:00 Eosinophils # (Manual) 0.0 K/mm3 (0.0-0.4) 07/21/20 04:00 Basophils # (Manual) 0.0 K/mm3 (0.0-0.1) 07/21/20 04:00 Metamyelocytes # 0.0 K/mm3 07/21/20 04:00 Myelocytes # 0.0 K/mm3 07/21/20 04:00 Promyelocytes # 0.0 K/mm3 07/21/20 04:00 Blast Cells # 0.0 K/mm3 07/21/20 04:00 WBC Morphology Not Reportable 07/21/20 04:00 Hypersegmented Neuts Not Reportable 07/21/20 04:00 Hyposegmented Neuts Not Reportable 07/21/20 04:00 Hypogranular Neuts Not Reportable 07/21/20 04:00 Smudge Cells Not Reportable 07/21/20 04:00 Toxic Granulation Not Reportable 07/21/20 04:00 Toxic Vacuolation Not Reportable 07/21/20 04:00 Dohle Bodies Not Reportable 07/21/20 04:00 Pelger-Huet Anomaly Not Reportable 07/21/20 04:00 Elia Rods Not Reportable 07/21/20 04:00 Platelet Estimate Consistent w auto 07/21/20 04:00 Clumped Platelets Not Reportable 07/21/20 04:00 Plt Clumps, EDTA Not Reportable 07/21/20 04:00 Large Platelets Not Reportable 07/21/20 04:00 Giant Platelets Not Reportable 07/21/20 04:00 Platelet Satelliting Not Reportable 07/21/20 04:00 Plt Morphology Comment Not Reportable 07/21/20 04:00 RBC Morphology Not Reportable 07/21/20 04:00 Dimorphic RBCs Not Reportable 07/21/20 04:00 Polychromasia Not Reportable 07/21/20 04:00 Hypochromasia Not Reportable 07/21/20 04:00 Poikilocytosis Not Reportable 07/21/20 04:00 Anisocytosis Not Reportable 07/21/20 04:00 Microcytosis Not Reportable 07/21/20 04:00 Macrocytosis Not Reportable 07/21/20 04:00 Spherocytes Not Reportable 07/21/20 04:00 Pappenheimer Bodies Not Reportable 07/21/20 04:00 Sickle Cells Not Reportable 07/21/20 04:00 Target Cells Not Reportable 07/21/20 04:00 Tear Drop Cells Not Reportable 07/21/20 04:00 Ovalocytes Not Reportable 07/21/20 04:00 Helmet Cells Not Reportable 07/21/20 04:00 [place] Bodies Not Reportable 07/21/20 04:00 Penrose Rings Not Reportable 07/21/20 04:00 [place] Cells 1+ 07/21/20 04:00 Bite Cells Not Reportable 07/21/20 04:00 Crenated Cell Not Reportable 07/21/20 04:00 Elliptocytes Not Reportable 07/21/20 04:00 Acanthocytes (Spur) Not Reportable 07/21/20 04:00 Rouleaux Not Reportable 07/21/20 04:00 Hemoglobin C Crystals Not Reportable 07/21/20 04:00 Schistocytes Not Reportable 07/21/20 04:00 Malaria parasites Not Reportable 07/21/20 04:00 Junior Bodies Not Reportable 07/21/20 04:00 Hem Pathologist Commnt No 07/21/20 04:00 PT 20.1 Sec. (12.2-14.9) H 07/20/20 19:32 INR 1.72 (0.87-1.13) H 07/20/20 19:32 APTT 33.7 Sec. (24.2-36.6) 07/20/20 19:32 D-Dimer 2098.49 ng/mlDDU (0-234) H 07/20/20 21:59 ABG pH 7.423 (7.320-7.450) 07/22/20 11:00 POC ABG pCO2 37.3 mmHg (32.0-48.0) 07/22/20 11:00 POC ABG pO2 73.5 mmHg (83-108) L 07/22/20 11:00 POC ABG HCO3 23.8 07/22/20 11:00 ABG O2 Saturation 95.2 (0-100) 07/22/20 11:00 POC ABG Base Excess -0.4 07/22/20 11:00 ABG Hemoglobin 11.1 (12.0-17.5) L 07/22/20 11:00 ABG Oxyhemoglobin 94.4 (94-98) 07/22/20 11:00 ABG Methemoglobin 0.3 (0.0-1.5) 07/22/20 11:00 ABG Sodium 145.8 mmol/L (136.0-145.0) H 07/22/20 11:00 ABG Potassium 3.9 mmol/L (3.40-4.50) 07/22/20 11:00 ABG Chloride 114.0 mmol/L (98-107) H 07/22/20 11:00 ABG Glucose 125 mg/dL (65-95) H 07/22/20 11:00 Carboxyhemoglobin 0.5 (0.5-1.5) 07/22/20 11:00 FiO2 % 90 07/22/20 11:00 Sodium 155 mmol/L (137-145) H 07/23/20 04:48 Potassium 3.1 mmol/L (3.6-5.0) L D 07/23/20 04:48 Chloride 112.2 mmol/L (98-107) H 07/23/20 04:48 Carbon Dioxide 30 mmol/L (22-30) 07/23/20 04:48 Anion Gap 16 mmol/L 07/23/20 04:48 BUN 34 mg/dL (7-17) H 07/23/20 04:48 Creatinine 0.8 mg/dL (0.6-1.2) 07/23/20 04:48 Estimated GFR > 60 ml/min 07/23/20 04:48 BUN/Creatinine Ratio 43 % 07/23/20 04:48 Glucose 143 mg/dL (65-100) H 07/23/20 04:48 POC Glucose 149 mg/dL (70-105) H 07/23/20 05:32 Lactic Acid 1.90 mmol/L (0.7-2.0) 07/20/20 21:59 Calcium 7.8 mg/dL (8.4-10.2) L 07/23/20 04:48 Ferritin 1648.0 ng/mL (10.0-200.0) H 07/20/20 21:59 Total Bilirubin 0.20 mg/dL (0.1-1.2) 07/20/20 19:27 AST 306 units/L (5-40) H 07/20/20 19: ALT 97 units/L (7-56) H 07/20/20 19:27 Alkaline Phosphatase 94 units/L (35-129) 07/20/20 19: Ammonia 24.0 umol/L (25-60) L 07/21/20 09:31 Lactate Dehydrogenase 732 units/L (91-180) H 07/20/20 21:59 Total Creatine Kinase 08706 units/L (30-135) H 07/21/20 08:20 CK-MB (CK-2) 289.0 ng/mL (0.0-4.0) H 07/20/20 19: CK-MB (CK-2) Rel Index 2.0 (0-4) 07/20/20 19: Troponin T 0.026 ng/mL (0.00-0.029) 07/20/20 19: C-Reactive Protein 37.90 mg/dL (0.00-1.30) H 07/20/20 21:59 Total Protein 6.7 g/dL (6.3-8.2) 07/20/20 19: Albumin 3.3 g/dL (3.9-5) L 07/20/20 19: Albumin/Globulin Ratio 1.0 % 07/20/20 19:27 Procalcitonin 40.67 ng/mL (<0.15) 07/20/20 21:59 TSH 0.454 mlU/mL (0.270-4.200) 07/20/20 19: Free T4 0.87 ng/dL (0.76-1.46) 07/20/20 19:27 Arterial Blood Glucose 125 mg/dL (65-95) H 07/22/20 11:00 Arterial Blood Ionized Calcium 4.2 mg/dL (4.6-5.3) L 07/22/20 11:00 Urine Color Yellow (Yellow) 07/21/20 Unknown Urine Turbidity Cloudy (Clear) 07/21/20 Unknown Urine pH 5.0 (5.0-7.0) 07/21/20 Unknown Ur Specific [place] 1.013 (1.003-1.030) 07/21/20 Unknown Urine Protein 30 mg/dl mg/dL (Negative) 07/21/20 Unknown Urine Glucose (UA) Neg mg/dL (Negative) 07/21/20 Unknown Urine Ketones Neg mg/dL (Negative) 07/21/20 Unknown Urine Blood Lg (Negative) 07/21/20 Unknown Urine Nitrite Neg (Negative) 07/21/20 Unknown Urine Bilirubin Neg (Negative) 07/21/20 Unknown Urine Urobilinogen < 2.0 mg/dL (<2.0) 07/21/20 Unknown Ur Leukocyte Esterase Sm (Negative) 07/21/20 Unknown Urine WBC (Auto) 28.0 /HPF (0.0-6.0) H 07/21/20 Unknown Urine RBC (Auto) 89.0 /HPF (0.0-6.0) 07/21/20 Unknown U Epithel Cells (Auto) 1.0 /HPF (0-13.0) 07/21/20 Unknown Urine WBC Clumps 2+ /HPF 07/21/20 Unknown Hyaline Casts 9 /LPF 07/21/20 Unknown Urine Mucus Few /HPF 07/21/20 Unknown Urine Yeast (Budding) 3+ /HPF 07/20/20 19:52 Urine Eosinophils None seen (None Seen) 07/21/20 Unknown Urine Creatinine < 4.2 mg/dL (0.1-20.0) 07/21/20 Unknown Urine Sodium 10 mmol/L 07/21/20 Unknown Random Vancomycin 4.7 ug/mL (0-40.0) 07/22/20 06:27 Urine Opiates Screen Positive 07/20/20 19:52 Urine Methadone Screen Negative 07/20/20 19:52 Ur Barbiturates Screen Negative 07/20/20 19:52 Ur Phencyclidine Scrn Negative 07/20/20 19:52 Ur Amphetamines Screen Negative 07/20/20 19:52 U Benzodiazepines Scrn Positive 07/20/20 19:52 Urine Cocaine Screen Negative 07/20/20 19:52 U Marijuana (THC) Screen Negative 07/20/20 19:52 Drugs of Abuse Note Disclamer 07/20/20 19:52 Coronavirus (PCR) Negative (Negative) 07/21/20 08:20 Blood Type O POSITIVE 07/20/20 23:15 Antibody Screen Negative 07/20/20 23:15 Microbiology: Microbiology 07/20/20 19:32 Peripheral/Venous Blood Culture - Preliminary NO GROWTH AFTER 48 HOURS 07/20/20 19:27 Peripheral/Venous Blood Culture - Preliminary NO GROWTH AFTER 48 HOURS 07/20/20 Unknown Urine,Clean Catch Urine Culture - Preliminary Gram Negative Onel Russell/IV: Voiding Method Indwelling Catheter Active Medications - Current Medications Current Medications: Generic Name Dose Route Start Last Admin Trade Name Freq PRN Reason Stop Dose Admin Acetaminophen 650 mg 07/20/20 22:51 Acetaminophen 325 Mg/10.15 Ml Oral Liqd Unit Dose FEEDTUBE Q6H PRN Pain MILD(1-3)/Fever >100.5/HESS Albuterol/Ipratropium 1 ampul 07/20/20 23:00 07/23/20 05:51 Ipratropium/Albuterol Sulfate 3 Ml Ampul.Neb IH Not Given Q6HRT HONEY Famotidine 20 mg 07/20/20 23:00 07/22/20 11:55 Famotidine 20 Mg/2 Ml Inj IV 20 mg QAM HONEY Administration Haloperidol Lactate 5 mg 07/22/20 12:00 07/23/20 05:11 Haloperidol Lactate 5 Mg/1 Ml Inj IV 5 mg Q6H HONEY Administration Heparin Sodium (Porcine) 5,000 unit 07/21/20 10:00 07/22/20 21:00 Heparin 5,000 Unit/1 Ml Vial SUB-Q 5,000 unit Q12HR HONEY Administration Hydralazine HCl 10 mg 07/22/20 23:25 Hydralazine 20 Mg/1 Ml Inj IV Q6H PRN Hypertension Cefepime HCl 2 gm in 100 mls @ 200 mls/hr 07/21/20 10:00 07/22/20 11:55 Cefepime/Ns 2 Gm/100 Ml IV 07/27/20 10:29 200 mls/hr Q24HR HONEY Administration Protocol Dextrose/Sodium Chloride 1,000 mls @ 50 mls/hr 07/22/20 12:00 07/22/20 20:54 D5ns 0.2% IV 50 mls/hr DIRECT HONEY Administration Metoclopramide HCl 5 mg 07/20/20 22:51 Metoclopramide 10 Mg/2 Ml Inj IV Q6H PRN Nausea And Vomiting Morphine Sulfate 2 mg 07/23/20 01:48 Morphine 2 Mg/1 Ml Inj IV 07/23/20 01:49 ONCE ONE Sodium Chloride 10 ml 07/21/20 10:00 07/22/20 21:02 Sodium Chloride 0.9% 10 Ml Flush Syringe IV 10 ml BID HONEY Administration Sodium Chloride 10 ml 07/20/20 22:51 Sodium Chloride 0.9% 10 Ml Flush Syringe IV PRN PRN LINE FLUSH Nutrition/Malnutrition Assess - Dietary Evaluation Nutrition/Malnutrition Findings: Nutrition Notes Start: 07/22/20 12:24 Freq: Status: Active Protocol: Document 07/22/20 12:24 LP (Rec: 07/22/20 12:30 LP [email or web address]) Nutrition Notes Need for Assessment generated from: enterprise applications manager Initial or Follow up Assessment Current Diagnosis Acute Kidney Injury,Sepsis, Hypertension Other Pertinent Diagnosis Hep C, AMS, UTI, Encephalopathy Current Diet NPO Labs/Tests Na 146 BUN 56 Cr 1.6 Pertinent Medications Reviewed Height 5 ft 3 in Weight 53 kg [place] Body Weight (kg) 52.27 BMI 20.7 Weight Status Appropriate Subjective/Other Information Screen for MST. Pt possibly going to hospice. No plans to feed at this time. Burn Absent Trauma Absent GI Symptoms Last BM Current % PO Negligible Minimum of two criteria No physical signs of malnutrition #1 Nutrition Diagnosis Inadequate oral intake Etiology AMS As Evidenced by Signs and Symptoms Pt currently NPO Is patient on ventilator? No Is Patient Ambulatory and/or Out of Bed No REE-([facility]-confined to bed) 1258.560 Calculation Used for Recommendations [facility] Additional Notes Protein needs are 64-106g (1.2 -2g/kg) Fluid needs are 1ml/kcal Nutrition Intervention Change Diet Order: comfort measures or TF Goal #1 Consult for TF or comfort care Anticipated Discharge Needs: Unable to determine at this time Follow-Up By: 07/25/20 Additional Comments Follow for POC
--- NOTE | 2020-07-23 11:12 | Progress Note ---
Assessment and Plan 65 y/o female with altered mental state, hypotension, renal failure and electrolyte imbalance with UTI seen on urine analysis and presumptive sepsis with distributive shock. 07/23/20: Will transfer to floor given her AND status. Family is still making decisions. Discussed with IM and they agree. WIll see PRN on the floor. Very poor prognosis. 07/22/20: Stop maintenance. Continue current abx therapy. Will start scheduled haldol therapy to see if this will hep mental sate. Suggest continuation of bicarb drip and will give a couple of amps of bicarb today. Follow up renal recs. Patient has moderate pulmonary hypertension seen on echo. Will obtain lung history once more awake or from . Could be related to underlying lung disease. CXR maybe more consistent with ILD than pulmonary edema. Will obtain CT of chest when more stable. Remove central line today and obtain peripheral access. Maybe stable enough for step down, will discuss on rounds. Can stop q6 hour BMP's. ONce off bipap can assess nutrition. 1. Needs more fluid resuscitation. Ordered for 2 more liters of saline now and additional to be bolused after rounds today 2. Agree with broad spec abx therapy follow up on cultures of urine and blood 3. Currently on bipap but hopeful we can wean as tolerated given improvement in mental status. 4. Spoke with renal and they agree with more volume and chemical management of hyperkalemia 5. Given CXR appearance and no other imaging, will obtain 2D echo as well. her hypotension could be from sepsis but need to make sure cardiac function is ok. She may need inotropic help with pressor requirement does not improve. 6. Continue to assess volume throughout the day 7. CMP q6 hours to monitor sodium and other electrolytes 8. ordered picc but likely will not happen today. continue right femoral groin line. 9. Hold on feeds given her pressor requirement and bipap requirement 10. DVT and GI prophylaxis. Guarded prognosis. CCT 31 minutes. Subjective Date of service: 07/23/20 Interval history: No acute events. Off bipap now. Still altered. Family met with IM on yesterday. NO aggressive measures but not ready for hospice yet. Objective Vital Signs - 12hr 07/22/20 07/22/20 07/23/20 23:31 23:35 00:00 Temperature 99.7 F H Pulse Rate 78 128 H Pulse Rate [ Bilateral Throughout] Pulse Rate [ 120 H From Monitor] Respiratory 28 H 40 H Rate Respiratory Rate [Bilateral Throughout] Blood Pressure 164/91 164/91 O2 Sat by Pulse 98 96 Oximetry 07/23/20 07/23/20 07/23/20 01:01 02:01 03:00 Temperature Pulse Rate 131 H 126 H 123 H Pulse Rate [ Bilateral Throughout] Pulse Rate [ From Monitor] Respiratory 35 H 33 H 32 H Rate Respiratory Rate [Bilateral Throughout] Blood Pressure 133/120 133/120 108/87 O2 Sat by Pulse 96 90 90 Oximetry 07/23/20 07/23/20 07/23/20 03:01 04:00 04:01 Temperature 97.7 F Pulse Rate 132 H Pulse Rate [ Bilateral Throughout] Pulse Rate [ 118 H From Monitor] Respiratory 38 H 39 H Rate Respiratory Rate [Bilateral Throughout] Blood Pressure 108/87 O2 Sat by Pulse 94 96 Oximetry 07/23/20 07/23/20 07/23/20 05:01 05:54 07:46 Temperature Pulse Rate 112 H 107 H Pulse Rate [ 125 H Bilateral Throughout] Pulse Rate [ From Monitor] Respiratory 32 H 33 H Rate Respiratory 20 Rate [Bilateral Throughout] Blood Pressure 174/87 O2 Sat by Pulse 92 90 92 Oximetry 07/23/20 08:00 Temperature 97.5 F L Pulse Rate Pulse Rate [ Bilateral Throughout] Pulse Rate [ From Monitor] Respiratory Rate Respiratory Rate [Bilateral Throughout] Blood Pressure O2 Sat by Pulse Oximetry CBC and BMP: 07/23/20 04:48 07/23/20 04:48 ABG, PT/INR, D-dimer: ABG ABG pH 7.423 (7.320-7.450) 07/22/20 11:00 POC ABG pCO2 37.3 mmHg (32.0-48.0) 07/22/20 11:00 POC ABG pO2 73.5 mmHg (83-108) L 07/22/20 11:00 POC ABG HCO3 23.8 07/22/20 11:00 ABG O2 Saturation 95.2 (0-100) 07/22/20 11:00 PT/INR, D-dimer PT 20.1 Sec. (12.2-14.9) H 07/20/20 19:32 INR 1.72 (0.87-1.13) H 07/20/20 19:32 D-Dimer 2098.49 ng/mlDDU (0-234) H 07/20/20 21:59 Abnormal lab findings: Abnormal Labs 07/20/20 07/20/20 07/20/20 19:20 19:27 19:27 WBC 17.9 H RBC MCV 102 H MCH 33 H Plt Count Lymph % (Auto) 4.4 L Lymph # (Auto) 0.8 L Baso # (Auto) 0.3 H Seg Neutrophils % 90.0 H Lymphocytes % (Manual) Seg Neutrophils # 16.1 H Seg Neutrophils # Man Lymphocytes # (Manual) PT INR D-Dimer ABG pH POC ABG pO2 ABG Hemoglobin ABG Oxyhemoglobin ABG Sodium ABG Potassium ABG Chloride ABG Glucose Sodium 130 L Potassium 5.6 H Chloride 84.4 L Carbon Dioxide 14 L BUN 108 H Creatinine 7.7 H Glucose POC Glucose 55 L Lactic Acid Calcium 7.4 L Ferritin AST 306 H ALT 97 H Ammonia Lactate Dehydrogenase Total Creatine Kinase CK-MB (CK-2) C-Reactive Protein Albumin 3.3 L Arterial Blood Glucose Arterial Blood Ionized Calcium Urine WBC (Auto) 07/20/20 07/20/20 07/20/20 19:27 19:27 19:32 WBC RBC MCV MCH Plt Count Lymph % (Auto) Lymph # (Auto) Baso # (Auto) Seg Neutrophils % Lymphocytes % (Manual) Seg Neutrophils # Seg Neutrophils # Man Lymphocytes # (Manual) PT 20.1 H INR 1.72 H D-Dimer ABG pH POC ABG pO2 ABG Hemoglobin ABG Oxyhemoglobin ABG Sodium ABG Potassium ABG Chloride ABG Glucose Sodium Potassium Chloride Carbon Dioxide BUN Creatinine Glucose POC Glucose Lactic Acid 3.10 H* Calcium Ferritin AST ALT Ammonia Lactate Dehydrogenase Total Creatine Kinase 83407 H CK-MB (CK-2) 289.0 H C-Reactive Protein Albumin Arterial Blood Glucose Arterial Blood Ionized Calcium Urine WBC (Auto) 07/20/20 07/20/20 07/20/20 19:52 19:59 20:41 WBC RBC MCV MCH Plt Count Lymph % (Auto) Lymph # (Auto) Baso # (Auto) Seg Neutrophils % Lymphocytes % (Manual) Seg Neutrophils # Seg Neutrophils # Man Lymphocytes # (Manual) PT INR D-Dimer ABG pH 7.016 L POC ABG pO2 55.7 L ABG Hemoglobin ABG Oxyhemoglobin 81.6 L ABG Sodium 129.0 L ABG Potassium 5.0 H ABG Chloride ABG Glucose 157 H Sodium Potassium Chloride Carbon Dioxide BUN Creatinine Glucose POC Glucose 108 H Lactic Acid Calcium Ferritin AST ALT Ammonia Lactate Dehydrogenase Total Creatine Kinase CK-MB (CK-2) C-Reactive Protein Albumin Arterial Blood Glucose 157 H Arterial Blood Ionized Calcium 3.9 L Urine WBC (Auto) > 182.0 H 07/20/20 07/20/20 07/20/20 21:59 21:59 21:59 WBC RBC MCV MCH Plt Count Lymph % (Auto) Lymph # (Auto) Baso # (Auto) Seg Neutrophils % Lymphocytes % (Manual) Seg Neutrophils # Seg Neutrophils # Man Lymphocytes # (Manual) PT INR D-Dimer 2098.49 H ABG pH POC ABG pO2 ABG Hemoglobin ABG Oxyhemoglobin ABG Sodium ABG Potassium ABG Chloride ABG Glucose Sodium Potassium Chloride Carbon Dioxide BUN Creatinine Glucose POC Glucose Lactic Acid Calcium Ferritin 1648.0 H AST ALT Ammonia Lactate Dehydrogenase 732 H Total Creatine Kinase CK-MB (CK-2) C-Reactive Protein 37.90 H Albumin Arterial Blood Glucose Arterial Blood Ionized Calcium Urine WBC (Auto) 07/20/20 07/21/20 07/21/20 23:35 01:56 04:00 WBC 15.1 H RBC 3.52 L MCV 100 H MCH 33 H Plt Count Lymph % (Auto) Lymph # (Auto) Baso # (Auto) Seg Neutrophils % Lymphocytes % (Manual) 2.0 L Seg Neutrophils # Seg Neutrophils # Man 9.4 H Lymphocytes # (Manual) 0.3 L PT INR D-Dimer ABG pH POC ABG pO2 ABG Hemoglobin ABG Oxyhemoglobin ABG Sodium ABG Potassium ABG Chloride ABG Glucose Sodium Potassium 5.8 H Chloride 95.4 L Carbon Dioxide 17 L BUN 100 H Creatinine 6.8 H Glucose 61 L POC Glucose 138 H Lactic Acid Calcium 6.3 L Ferritin AST ALT Ammonia Lactate Dehydrogenase Total Creatine Kinase CK-MB (CK-2) C-Reactive Protein Albumin Arterial Blood Glucose Arterial Blood Ionized Calcium Urine WBC (Auto) 07/21/20 07/21/20 07/21/20 04:00 05:24 06:06 WBC RBC MCV MCH Plt Count Lymph % (Auto) Lymph # (Auto) Baso # (Auto) Seg Neutrophils % Lymphocytes % (Manual) Seg Neutrophils # Seg Neutrophils # Man Lymphocytes # (Manual) PT INR D-Dimer ABG pH POC ABG pO2 ABG Hemoglobin ABG Oxyhemoglobin ABG Sodium ABG Potassium ABG Chloride ABG Glucose Sodium Potassium 6.1 H* Chloride 97.2 L Carbon Dioxide 21 L BUN 104 H Creatinine 6.7 H Glucose POC Glucose 121 H 124 H Lactic Acid Calcium 6.5 L Ferritin AST ALT Ammonia Lactate Dehydrogenase Total Creatine Kinase CK-MB (CK-2) C-Reactive Protein Albumin Arterial Blood Glucose Arterial Blood Ionized Calcium Urine WBC (Auto) 07/21/20 07/21/20 07/21/20 06:58 07:58 08:20 WBC RBC MCV MCH Plt Count Lymph % (Auto) Lymph # (Auto) Baso # (Auto) Seg Neutrophils % Lymphocytes % (Manual) Seg Neutrophils # Seg Neutrophils # Man Lymphocytes # (Manual) PT INR D-Dimer ABG pH POC ABG pO2 ABG Hemoglobin ABG Oxyhemoglobin ABG Sodium ABG Potassium ABG Chloride ABG Glucose Sodium Potassium Chloride Carbon Dioxide BUN Creatinine Glucose POC Glucose 128 H 133 H Lactic Acid Calcium Ferritin AST ALT Ammonia Lactate Dehydrogenase Total Creatine Kinase 39741 H CK-MB (CK-2) C-Reactive Protein Albumin Arterial Blood Glucose Arterial Blood Ionized Calcium Urine WBC (Auto) 07/21/20 07/21/20 07/21/20 09:15 09:31 10:09 WBC RBC MCV MCH Plt Count Lymph % (Auto) Lymph # (Auto) Baso # (Auto) Seg Neutrophils % Lymphocytes % (Manual) Seg Neutrophils # Seg Neutrophils # Man Lymphocytes # (Manual) PT INR D-Dimer ABG pH 7.239 L POC ABG pO2 70.1 L ABG Hemoglobin 11.4 L ABG Oxyhemoglobin 92.6 L ABG Sodium 135.2 L ABG Potassium 5.1 H ABG Chloride ABG Glucose 147 H Sodium Potassium Chloride Carbon Dioxide BUN Creatinine Glucose POC Glucose 129 H Lactic Acid Calcium Ferritin AST ALT Ammonia 24.0 L Lactate Dehydrogenase Total Creatine Kinase CK-MB (CK-2) C-Reactive Protein Albumin Arterial Blood Glucose 147 H Arterial Blood Ionized Calcium 3.4 L Urine WBC (Auto) 07/21/20 07/21/20 07/21/20 12:55 14:19 17:20 WBC RBC MCV MCH Plt Count Lymph % (Auto) Lymph # (Auto) Baso # (Auto) Seg Neutrophils % Lymphocytes % (Manual) Seg Neutrophils # Seg Neutrophils # Man Lymphocytes # (Manual) PT INR D-Dimer ABG pH POC ABG pO2 ABG Hemoglobin ABG Oxyhemoglobin ABG Sodium ABG Potassium ABG Chloride ABG Glucose Sodium Potassium Chloride Carbon Dioxide 20 L BUN 88 H Creatinine 4.0 H Glucose 166 H POC Glucose 157 H 172 H Lactic Acid Calcium 6.0 L Ferritin AST ALT Ammonia Lactate Dehydrogenase Total Creatine Kinase CK-MB (CK-2) C-Reactive Protein Albumin Arterial Blood Glucose Arterial Blood Ionized Calcium Urine WBC (Auto) 07/21/20 07/21/20 07/21/20 17:30 20:59 23:59 WBC RBC MCV MCH Plt Count Lymph % (Auto) Lymph # (Auto) Baso # (Auto) Seg Neutrophils % Lymphocytes % (Manual) Seg Neutrophils # Seg Neutrophils # Man Lymphocytes # (Manual) PT INR D-Dimer ABG pH 7.174 L POC ABG pO2 69.3 L ABG Hemoglobin 11.9 L ABG Oxyhemoglobin 91.0 L ABG Sodium 134.0 L ABG Potassium 5.4 H ABG Chloride ABG Glucose 60 L Sodium Potassium Chloride 110.0 H Carbon Dioxide 21 L BUN 72 H Creatinine 2.7 H Glucose 175 H POC Glucose 122 H Lactic Acid Calcium 5.6 L* Ferritin AST ALT Ammonia Lactate Dehydrogenase Total Creatine Kinase CK-MB (CK-2) C-Reactive Protein Albumin Arterial Blood Glucose 60 L Arterial Blood Ionized Calcium 3.6 L Urine WBC (Auto) 07/21/20 07/22/20 07/22/20 Unknown 02:00 02:03 WBC RBC MCV MCH Plt Count Lymph % (Auto) Lymph # (Auto) Baso # (Auto) Seg Neutrophils % Lymphocytes % (Manual) Seg Neutrophils # Seg Neutrophils # Man Lymphocytes # (Manual) PT INR D-Dimer ABG pH POC ABG pO2 ABG Hemoglobin ABG Oxyhemoglobin ABG Sodium ABG Potassium ABG Chloride ABG Glucose Sodium 146 H Potassium Chloride 109.9 H Carbon Dioxide BUN 56 H Creatinine 1.6 H Glucose 125 H POC Glucose 113 H Lactic Acid Calcium 6.5 L D Ferritin AST ALT Ammonia Lactate Dehydrogenase Total Creatine Kinase CK-MB (CK-2) C-Reactive Protein Albumin Arterial Blood Glucose Arterial Blood Ionized Calcium Urine WBC (Auto) 28.0 H 07/22/20 07/22/20 07/22/20 05:00 06:27 09:44 WBC RBC 3.11 L MCV 99 H MCH 34 H Plt Count 86 L Lymph % (Auto) Lymph # (Auto) Baso # (Auto) Seg Neutrophils % Lymphocytes % (Manual) Seg Neutrophils # Seg Neutrophils # Man Lymphocytes # (Manual) PT INR D-Dimer ABG pH POC ABG pO2 ABG Hemoglobin ABG Oxyhemoglobin ABG Sodium ABG Potassium ABG Chloride ABG Glucose Sodium 148 H Potassium Chloride 111.3 H Carbon Dioxide BUN 53 H Creatinine 1.4 H Glucose 135 H POC Glucose 122 H Lactic Acid Calcium 7.2 L Ferritin AST ALT Ammonia Lactate Dehydrogenase Total Creatine Kinase CK-MB (CK-2) C-Reactive Protein Albumin Arterial Blood Glucose Arterial Blood Ionized Calcium Urine WBC (Auto) 07/22/20 07/22/20 07/22/20 11:00 11:56 21:18 WBC RBC MCV MCH Plt Count Lymph % (Auto) Lymph # (Auto) Baso # (Auto) Seg Neutrophils % Lymphocytes % (Manual) Seg Neutrophils # Seg Neutrophils # Man Lymphocytes # (Manual) PT INR D-Dimer ABG pH POC ABG pO2 73.5 L ABG Hemoglobin 11.1 L ABG Oxyhemoglobin ABG Sodium 145.8 H ABG Potassium ABG Chloride 114.0 H ABG Glucose 125 H Sodium Potassium Chloride Carbon Dioxide BUN Creatinine Glucose POC Glucose 126 H 126 H Lactic Acid Calcium Ferritin AST ALT Ammonia Lactate Dehydrogenase Total Creatine Kinase CK-MB (CK-2) C-Reactive Protein Albumin Arterial Blood Glucose 125 H Arterial Blood Ionized Calcium 4.2 L Urine WBC (Auto) 07/23/20 07/23/20 07/23/20 01:43 04:48 04:48 WBC 13.2 H RBC 3.47 L MCV 99 H MCH 33 H Plt Count 98 L Lymph % (Auto) Lymph # (Auto) Baso # (Auto) Seg Neutrophils % Lymphocytes % (Manual) Seg Neutrophils # Seg Neutrophils # Man Lymphocytes # (Manual) PT INR D-Dimer ABG pH POC ABG pO2 ABG Hemoglobin ABG Oxyhemoglobin ABG Sodium ABG Potassium ABG Chloride ABG Glucose Sodium 155 H Potassium 3.1 L D Chloride 112.2 H Carbon Dioxide BUN 34 H Creatinine Glucose 143 H POC Glucose 146 H Lactic Acid Calcium 7.8 L Ferritin AST ALT Ammonia Lactate Dehydrogenase Total Creatine Kinase CK-MB (CK-2) C-Reactive Protein Albumin Arterial Blood Glucose Arterial Blood Ionized Calcium Urine WBC (Auto) 07/23/20 05:32 WBC RBC MCV MCH Plt Count Lymph % (Auto) Lymph # (Auto) Baso # (Auto) Seg Neutrophils % Lymphocytes % (Manual) Seg Neutrophils # Seg Neutrophils # Man Lymphocytes # (Manual) PT INR D-Dimer ABG pH POC ABG pO2 ABG Hemoglobin ABG Oxyhemoglobin ABG Sodium ABG Potassium ABG Chloride ABG Glucose Sodium Potassium Chloride Carbon Dioxide BUN Creatinine Glucose POC Glucose 149 H Lactic Acid Calcium Ferritin AST ALT Ammonia Lactate Dehydrogenase Total Creatine Kinase CK-MB (CK-2) C-Reactive Protein Albumin Arterial Blood Glucose Arterial Blood Ionized Calcium Urine WBC (Auto)
[2020-07-23] MEDS: HEPARIN 5,000 UNIT/1 ML VIAL SUB-Q SCH ×2 (11:36→23:02)
[2020-07-23] MEDS: FAMOTIDINE 20 MG/2 ML INJ IV SCH ×2 (11:56→18:40)
[2020-07-23] MEDS: CEFEPIME/NS 2 GM/100 ML 2 GM/100 ML BAG IV SCH (11:58)
--- NOTE | 2020-07-23 13:01 | Progress Note ---
Assessment and Plan Impression: * Nonoliguric DOREEN secondary to multifactorial etiologies: prerenal component due to volume depletion vs ATN (sepsis) * Acute hypoxic respiratory failure * Sepsis * UTI, GNR * Acute encephelopathy * Uremia * Hyperkalemia * Acidosis, respiratory w/ inadequate metabolic compensation Plan: * Renal function improved with volume resuscitation. No acute indication for renal replacement therapy at this time. Continue conservative management * Continue IVF - change to D5W 125ml/hour * Replete K - give 10meq IV x 2 doses * ?Possible withdrawal - note order for Ativan prn * Abx per primary team * Pressors prn to maintain MAP>65 * Avoid potential nephrotoxins * Dose medications for renal function * AM labs * Note patient is DNR/DNI. However, given encephalopathy, on bipap, in restraints, recommend maintaining ICU/IMCU bed status. Discussed with [facility] - transfer on hold. Subjective Date of service: 07/23/20 Interval history: Patient remains on bipap. Agitated. Objective - Vital Signs Vital signs: Vital Signs - 12hr 07/23/20 07/23/20 07/23/20 01:01 02:01 03:00 Temperature Pulse Rate 131 H 126 H 123 H Pulse Rate [ Bilateral Throughout] Pulse Rate [ From Monitor] Respiratory 35 H 33 H 32 H Rate Respiratory Rate [Bilateral Throughout] Blood Pressure 133/120 133/120 108/87 O2 Sat by Pulse 96 90 90 Oximetry 07/23/20 07/23/20 07/23/20 03:01 04:00 04:01 Temperature 97.7 F Pulse Rate 132 H Pulse Rate [ Bilateral Throughout] Pulse Rate [ 118 H From Monitor] Respiratory 38 H 39 H Rate Respiratory Rate [Bilateral Throughout] Blood Pressure 108/87 O2 Sat by Pulse 94 96 Oximetry 07/23/20 07/23/20 07/23/20 05:01 05:54 07:46 Temperature Pulse Rate 112 H 107 H Pulse Rate [ 125 H Bilateral Throughout] Pulse Rate [ From Monitor] Respiratory 32 H 33 H Rate Respiratory 20 Rate [Bilateral Throughout] Blood Pressure 174/87 O2 Sat by Pulse 92 90 92 Oximetry 07/23/20 07/23/20 08:00 12:00 Temperature 97.5 F L 98.4 F Pulse Rate Pulse Rate [ Bilateral Throughout] Pulse Rate [ From Monitor] Respiratory Rate Respiratory Rate [Bilateral Throughout] Blood Pressure O2 Sat by Pulse Oximetry - General Appearance General appearance: well-developed EENT: ATNC Respiratory: Present: Decreased Breath Sounds Cardiology: tachycardia Gastrointestinal: normal, no tenderness, no distended Integumentary: warm and dry Neurologic: other (agitated) Musculoskeletal: other (no edema) - Lab 07/23/20 04:48 07/23/20 14:33 Most recent lab results ABG pH 7.423 (7.320-7.450) 07/22/20 11:00 ABG O2 Saturation 95.2 (0-100) 07/22/20 11:00 Calcium 7.8 mg/dL (8.4-10.2) L 07/23/20 04:48 Urine Creatinine < 4.2 mg/dL (0.1-20.0) 07/21/20 Unknown Urine Sodium 10 mmol/L 07/21/20 Unknown Medications & Allergies - Medications Allergies/Adverse Reactions: Allergies Iodine and Iodide Containing Produc Adverse Reaction (Verified 10/26/18 10:10) Rash Home Medications: Home Medications Medication Instructions Recorded Confirmed Last Taken Type Ondansetron [Zofran TAB] 4 mg PO Q8HR PRN #15 tablet 07/17/17 Unknown Rx Ibuprofen [Motrin 600 MG tab] 600 mg PO Q8H PRN #30 tablet 01/18/18 Unknown Rx Sulfamethoxazole/Trimethoprim 1 each PO BID 10 Days #20 tablet 01/18/18 Unknown Rx [Bactrim DS TAB] cephALEXin [Keflex] 500 mg PO Q12HR #20 capsule 01/18/18 Unknown Rx Famotidine [Pepcid] 20 mg PO BID #10 tablet 05/17/18 Unknown Rx Mag Hydrox/Aluminum Hyd/Simeth 15 ml PO QID #1 oral.susp 05/17/18 Unknown Rx [Maalox Advanced Suspension] Ondansetron [Zofran ODT TAB] 8 mg PO Q12HR #20 tab.rapdis 05/17/18 Unknown Rx Acetaminophen/Codeine [Tylenol 1 tab PO Q6H PRN #12 tab 10/26/18 Unknown Rx /Codeine # 3 tab] Clindamycin [Clindamycin CAP] 300 mg PO Q8H #21 cap 10/26/18 Unknown Rx Esomeprazole Magnesium [NexIUM] 40 mg PO QDAY 20 Days #20 06/04/19 Unknown Rx capsule. ALPRAZolam [Xanax TAB] 2 mg PO Q8H 07/23/20 07/23/20 Unknown History Carisoprodol [Soma] 350 mg PO Q6H 07/23/20 07/23/20 Unknown History Ezetimibe [Zetia] 10 mg PO DAILY 07/23/20 07/23/20 Unknown History Gabapentin [Neurontin] 600 mg PO Q6H 07/23/20 07/23/20 Unknown History HYDROcodone/APAP 5-325 1 tab Q6H 07/23/20 07/23/20 Unknown History SUMAtriptan SUCCINATE [Imitrex] 100 mg PO Q2H PRN 07/23/20 07/23/20 Unknown History Active Medications: Generic Name Dose Route Start Last Admin Trade Name Freq PRN Reason Stop Dose Admin Acetaminophen 650 mg 07/20/20 22:51 Acetaminophen 325 Mg/10.15 Ml Oral Liqd Unit Dose FEEDTUBE Q6H PRN Pain MILD(1-3)/Fever >100.5/HESS Albuterol/Ipratropium 1 ampul 07/20/20 23:00 07/23/20 07:46 Ipratropium/Albuterol Sulfate 3 Ml Ampul.Neb IH 1 ampul Q6HRT HONEY Administration Famotidine 20 mg 07/20/20 23:00 07/22/20 11:55 Famotidine 20 Mg/2 Ml Inj IV 20 mg QAM HONEY Administration Haloperidol Lactate 5 mg 07/22/20 12:00 07/23/20 05:11 Haloperidol Lactate 5 Mg/1 Ml Inj IV 5 mg Q6H HONEY Administration Heparin Sodium (Porcine) 5,000 unit 07/21/20 10:00 07/22/20 21:00 Heparin 5,000 Unit/1 Ml Vial SUB-Q 5,000 unit Q12HR HONEY Administration Hydralazine HCl 10 mg 07/22/20 23:25 Hydralazine 20 Mg/1 Ml Inj IV Q6H PRN Hypertension Cefepime HCl 2 gm in 100 mls @ 200 mls/hr 07/21/20 10:00 07/22/20 11:55 Cefepime/Ns 2 Gm/100 Ml IV 07/27/20 10:29 200 mls/hr Q24HR HONEY Administration Protocol Dextrose 1,000 mls @ 125 mls/hr 07/23/20 13:00 D5w IV DIRECT HONEY Metoclopramide HCl 5 mg 07/20/20 22:51 Metoclopramide 10 Mg/2 Ml Inj IV Q6H PRN Nausea And Vomiting Morphine Sulfate 2 mg 07/23/20 11:06 Morphine 2 Mg/1 Ml Inj IV Q1H PRN Pain, Moderate (4-6) Sodium Chloride 10 ml 07/21/20 10:00 07/22/20 21:02 Sodium Chloride 0.9% 10 Ml Flush Syringe IV 10 ml BID HONEY Administration Sodium Chloride 10 ml 07/20/20 22:51 Sodium Chloride 0.9% 10 Ml Flush Syringe IV PRN PRN LINE FLUSH
[2020-07-23 15:32] LABS: Blood Urea Nitrogen 34 mg/dL (7-17); Calcium 8.6 mg/dL (8.4-10.2); Hemolysis Index 11
[2020-07-23 15:38] LABS: BUN/Creatinine Ratio 49
[2020-07-23] MEDS: MORPHINE 2 MG/1 ML INJ IV PRN ×2 (16:33→20:50)
[2020-07-23] MEDS ORDERED: LORazepam 2 MG/ML VIAL IV PRN (17:24)
[2020-07-23] MEDS ORDERED: HALOPERIDOL LACTATE 5 MG/1 ML INJ IV PRN (17:24)
[2020-07-23 18:59] LABS: Alanine Aminotransferase 96 units/L (7-56); Albumin 2.9 g/dL (3.9-5)
[2020-07-23 19:00] LABS: Bilirubin,Direct < 0.2 mg/dL (0-0.2)
[2020-07-23 19:11] LABS: Hepatitis B Surface Antigen Non-Reactive (Negative); Hepatitis C Virus Antibody Reactive (NonReactive)
[2020-07-23] MEDS ORDERED: MIDAZOLAM 2 MG/2 ML INJ IV ONE (19:25)
[2020-07-23] MEDS: DEXTROSE 5% IN WATER 1,000 ML IV SCH (20:20)
[2020-07-23] MEDS: LORazepam 2 MG/ML VIAL IV PRN ×2 (20:49→23:02)
[2020-07-23] MEDS: THIAMINE 100 MG in SODIUM CHLORIDE 0.9% 50 ML IV SCH (20:50)
[2020-07-23] MEDS: FOLIC ACID 1 MG in SODIUM CHLORIDE 0.9% 50 ML IV SCH (20:51)
[2020-07-24] MEDS: LORazepam 2 MG/ML VIAL IV PRN ×7 (00:47→22:48)
[2020-07-24] MEDS: HALOPERIDOL LACTATE 5 MG/1 ML INJ IV SCH ×5 (00:47→17:00)
[2020-07-24] MEDS: IPRATROPIUM/ALBUTEROL SULFATE 3 ML AMPUL.NEB IH SCH ×4 (03:19→20:24)
[2020-07-24 06:54] LABS: Blood Urea Nitrogen 33 mg/dL (7-17); Calcium 7.9 mg/dL (8.4-10.2); Hemolysis Index 284
[2020-07-24 06:55] LABS: BUN/Creatinine Ratio 47
[2020-07-24] MEDS: DEXTROSE 5% IN WATER 1,000 ML IV SCH ×2 (07:28→16:53)
[2020-07-24] MEDS: MORPHINE 2 MG/1 ML INJ IV PRN ×2 (08:35→22:40)
--- NOTE | 2020-07-24 09:14 | Progress Note ---
Assessment and Plan Assessment and plan: Sepsis -Presented with hypothermia, hypotension, metabolic acidosis, acute respiratory failure, tachycardia, UTI -ABX therapy -07/20 blood cultures and urine culture pending -07/20 urine analysis shows urinary tract infection -Infectious disease consulted, appreciate recommendations -07/21 echocardiogram shows mild concentric left ventricular hypertrophy, left ventricular ejection fraction 55 to 60%, moderate pulmonary hypertension, RVSP calculated at 52 mmHg Urinary tract infection -Noted on UA -Antibiotic therapy Acute renal failure -Nephrology consulted, appreciate recommendations -Strict intake and output -Serial BMPs -Avoid nephrotoxic medications -Renally dose medications Thrombocytopenia -07/22 platelets 86 -Hold chemical anticoagulation -Trend CBC -Possibly related to sepsis Rhabdomyolysis -S/p 3 units normal saline bolus in the emergency department, 9L NS bolus in CCU -Trend CK Acute respiratory failure -BiPAP therapy -ABGs as needed -Pulmonary hygiene -SPO2 monitoring Acute metabolic encephalopathy, improving -CT head shows small region of diffuse brain parenchymal attenuation observed along with the inferolateral occipital lobe (?represents an area of encephalomalacia but small area of vasogenic edema not excluded, follow-up MRI brain with and without contrast) -Supportive care Ground-level fall -C-spine shows no indication of fracture or traumatic subluxation, widespread cervical spondylosis with multifocal neuroforaminal stenosis -Supportive care Hypertension -Hold home antihypertensives in setting of hypotension -Blood pressure monitor per protocol Hepatitis C -Supportive care COVID-19 PUI, ruled out -Droplet/isolation precautions -ID and pulmonology consult -COVID-19 PCR negative -Abx per ID Hypotension, resolved -s/p Vasopressor support for maps greater than 65 -3L NS bolus in the ED, 9 L IVF in CCU Hyperkalemia, reolved -Treated with insulin, D50, calcium gluconate and Kionex -Trend BMP Hypothermia, resolved -Jesus hugger as needed Metabolic acidosis, resolved -s/p Bicarb infusion -Routine ABGs DVT/GI prophylaxis: Heparin subcu, SCDs to bilateral lower extremities while in bed, PPI Dispo: IMCU CODE STATUS: DNR/AND The high probability of a clinically significant, sudden or life threatening deterioration of the [multi] system(s) required my full and direct attention, intervention and personal management. The aggregate critical care time was [35] minutes. This time is in addition to time spent performing reported procedures but includes the following: [x] Data Review and interpretation [x] Patient assessment and monitoring of vital signs [x] Documentation [x] Medication orders and management History Interval history: This is a 65-year-old female with hepatitis C, migraines and hypertension who had presented to the emergency department on 07/21 with altered mental status after being found on the floor by family members. Upon evaluation in the emergency department patient was found to be hypothermic and hypotensive with leukocytosis and acute kidney failure consistent with sepsis. Patient also had elevated D- dimer, metabolic encephalopathy, lactic acidosis, hyperkalemia and rhabdomyolysis. Patient was admitted to the hospital service with sepsis, UTI, DOREEN, rhabdomyolysis, acute respiratory failure, metabolic acidosis, acute metabolic encephalopathy. Nephrology, infectious disease and critical care consulted. Sepsis Urinary tract infection Acute renal failure Rhabdomyolysis Hypernatremia Hyperchloremia Acute respiratory failure Acute metabolic encephalopathy Hypertension Hepatitis C Moderate pulmonary hypertension Thrombocytopenia 07/21: Patient received a total of 4 L normal saline, was started on vasopressin and remains on BiPAP. Patient was on Levophed and D5 normal saline and a bicarbonate drip. D5 normal saline was discontinued. We will obtain a p.m. BMP and serial BMPs. Patient was contacted and the patient is now on AND/DNR. 07/22: Patient received a total of 12 L IV bolus and has been weaned off of Levophed and vasopressin. Patient's kidney function has improved drastically. Patient has been started on scheduled Haldol and we obtained a baseline ECG.she was started on maintenance fluid overnight which was stopped today. Echocardiogram shows moderate pulmonary hypertension. [facility] would like to obtain a CT chest when more stable. RT is titrating BiPAP FiO2 as tolerated and we will assess for nutrition once off BiPAP.Patient now has hypernatremia, hyperchloremia and her BUN/creatinine has decreased to 53/1.4. 07/23/2020; patient is still on BiPAP, agitated and confused. Kidney function improved. Patient was on Haldol and Geodon which did not help. Put the patient on Ativan as needed this morning. I have a long discussion with her yesterday and she does not want any heroic measures to be done. Does not want NG tube to be placed. Patient is DNR/DNI. Patient has UTI and on cefepime. Patient prognosis is guarded. Patient has hypernatremia and placed on D5 0.2% normal saline but no improvement. Hypokalemia, repleted according to electrolyte protocol. Patient prognosis is very poor. Patient is gasping for air. 07/24/2020; patient is on BiPAP, agitated and confused. Sodium is trending up and 163 this morning despite the patient is on D5 W at 125. Family declined NG tube. Patient's family states patient is not alcoholic. UDS is positive for opioid. Patient has delirium and supportive care. On alcohol withdrawal protocol. Patient has UTI and continue with cefepime. Urine culture noted. History Interval history: Patient was seen and evaluated this morning Patient was confused and agitated On BiPAP Hospitalist Physical - Physical exam Narrative exam: Patient is on BiPAP The patient appeared well nourished and normally developed. Vital signs as documented. Head exam is unremarkable. No scleral icterus . Neck is without jugular venous distension, thyromegaly, or carotid bruits. Lungs are on BiPAP, gasping for air. Cardiac exam reveals regular rate and Rhythm. Abdominal exam reveals normal bowel sounds, nontender, no organomegaly. Extremities are nonedematous and both femoral and pedal pulses are normal. 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 - Constitutional Vitals: Temp Pulse Resp BP Pulse Ox 97 F L 109 H 40 H 126/102 90 07/24/20 08:00 07/24/20 09:01 07/24/20 09:01 07/24/20 09:01 07/24/20 09:01 General appearance: Present: no acute distress HEART Score - HEART Score Troponin: Troponin T 0.026 ng/mL (0.00-0.029) 07/20/20 19:27 Results - Labs CBC & Chem 7: 07/23/20 04:48 07/24/20 05:29 Labs: Laboratory Last Values WBC 13.2 K/mm3 (4.5-11.0) H 07/23/20 04:48 RBC 3.47 M/mm3 (3.65-5.03) L 07/23/20 04:48 Hgb 11.5 gm/dl (10.1-14.3) 07/23/20 04:48 Hct 34.2 % (30.3-42.9) 07/23/20 04:48 MCV 99 fl (79-97) H 07/23/20 04:48 MCH 33 pg (28-32) H 07/23/20 04:48 MCHC 34 % (30-34) 07/23/20 04:48 RDW 13.6 % (13.2-15.2) 07/23/20 04:48 Plt Count 98 K/mm3 (140-440) L 07/23/20 04:48 Lymph % (Auto) 4.4 % (13.4-35.0) L 07/20/20 19: [place] % (Auto) 2.1 % (0.0-7.3) 07/20/20 19: Eos % (Auto) 1.8 % (0.0-4.3) 07/20/20 19: Baso % (Auto) 1.7 % (0.0-1.8) 07/20/20 19: Lymph # (Auto) 0.8 K/mm3 (1.2-5.4) L 07/20/20 19: [place] # (Auto) 0.4 K/mm3 (0.0-0.8) 07/20/20 19: Eos # (Auto) 0.3 K/mm3 (0.0-0.4) 07/20/20 19: Baso # (Auto) 0.3 K/mm3 (0.0-0.1) H 07/20/20 19:27 Add Manual Diff Complete 07/21/20 04:00 Total Counted 100 07/21/20 04:00 Seg Neutrophils % Virtual Recruiter 07/21/20 04:00 Seg Neuts % (Manual) 62.0 % (40.0-70.0) 07/21/20 04:00 Band Neutrophils % 32.0 % 07/21/20 04:00 Lymphocytes % (Manual) 2.0 % (13.4-35.0) L 07/21/20 04:00 Monocytes % (Manual) 4.0 % (0.0-7.3) 07/21/20 04:00 Nucleated RBC % Not Reportable 07/21/20 04:00 Seg Neutrophils # 16.1 K/mm3 (1.8-7.7) H 07/20/20 19:27 Seg Neutrophils # Man 9.4 K/mm3 (1.8-7.7) H 07/21/20 04:00 Band Neutrophils # 4.8 K/mm3 07/21/20 04:00 Lymphocytes # (Manual) 0.3 K/mm3 (1.2-5.4) L 07/21/20 04:00 Abs React Lymphs (Man) 0.0 K/mm3 07/21/20 04:00 Monocytes # (Manual) 0.6 K/mm3 (0.0-0.8) 07/21/20 04:00 Eosinophils # (Manual) 0.0 K/mm3 (0.0-0.4) 07/21/20 04:00 Basophils # (Manual) 0.0 K/mm3 (0.0-0.1) 07/21/20 04:00 Metamyelocytes # 0.0 K/mm3 07/21/20 04:00 Myelocytes # 0.0 K/mm3 07/21/20 04:00 Promyelocytes # 0.0 K/mm3 07/21/20 04:00 Blast Cells # 0.0 K/mm3 07/21/20 04:00 WBC Morphology Not Reportable 07/21/20 04:00 Hypersegmented Neuts Not Reportable 07/21/20 04:00 Hyposegmented Neuts Not Reportable 07/21/20 04:00 Hypogranular Neuts Not Reportable 07/21/20 04:00 Smudge Cells Not Reportable 07/21/20 04:00 Toxic Granulation Not Reportable 07/21/20 04:00 Toxic Vacuolation Not Reportable 07/21/20 04:00 Dohle Bodies Not Reportable 07/21/20 04:00 Pelger-Huet Anomaly Not Reportable 07/21/20 04:00 Elia Rods Not Reportable 07/21/20 04:00 Platelet Estimate Consistent w auto 07/21/20 04:00 Clumped Platelets Not Reportable 07/21/20 04:00 Plt Clumps, EDTA Not Reportable 07/21/20 04:00 Large Platelets Not Reportable 07/21/20 04:00 Giant Platelets Not Reportable 07/21/20 04:00 Platelet Satelliting Not Reportable 07/21/20 04:00 Plt Morphology Comment Not Reportable 07/21/20 04:00 RBC Morphology Not Reportable 07/21/20 04:00 Dimorphic RBCs Not Reportable 07/21/20 04:00 Polychromasia Not Reportable 07/21/20 04:00 Hypochromasia Not Reportable 07/21/20 04:00 Poikilocytosis Not Reportable 07/21/20 04:00 Anisocytosis Not Reportable 07/21/20 04:00 Microcytosis Not Reportable 07/21/20 04:00 Macrocytosis Not Reportable 07/21/20 04:00 Spherocytes Not Reportable 07/21/20 04:00 Pappenheimer Bodies Not Reportable 07/21/20 04:00 Sickle Cells Not Reportable 07/21/20 04:00 Target Cells Not Reportable 07/21/20 04:00 Tear Drop Cells Not Reportable 07/21/20 04:00 Ovalocytes Not Reportable 07/21/20 04:00 Helmet Cells Not Reportable 07/21/20 04:00 Weathers-Winnie Bodies Not Reportable 07/21/20 04:00 [place] Rings Not Reportable 07/21/20 04:00 Lorri Cells 1+ 07/21/20 04:00 Bite Cells Not Reportable 07/21/20 04:00 Crenated Cell Not Reportable 07/21/20 04:00 Elliptocytes Not Reportable 07/21/20 04:00 Acanthocytes (Spur) Not Reportable 07/21/20 04:00 Rouleaux Not Reportable 07/21/20 04:00 Hemoglobin C Crystals Not Reportable 07/21/20 04:00 Schistocytes Not Reportable 07/21/20 04:00 Malaria parasites Not Reportable 07/21/20 04:00 Junior Bodies Not Reportable 07/21/20 04:00 Hem Pathologist Commnt No 07/21/20 04:00 PT 20.1 Sec. (12.2-14.9) H 07/20/20 19:32 INR 1.72 (0.87-1.13) H 07/20/20 19:32 APTT 33.7 Sec. (24.2-36.6) 07/20/20 19:32 D-Dimer 2098.49 ng/mlDDU (0-234) H 07/20/20 21:59 ABG pH 7.423 (7.320-7.450) 07/22/20 11:00 POC ABG pCO2 37.3 mmHg (32.0-48.0) 07/22/20 11:00 POC ABG pO2 73.5 mmHg (83-108) L 07/22/20 11:00 POC ABG HCO3 23.8 07/22/20 11:00 ABG O2 Saturation 95.2 (0-100) 07/22/20 11:00 POC ABG Base Excess -0.4 07/22/20 11:00 ABG Hemoglobin 11.1 (12.0-17.5) L 07/22/20 11:00 ABG Oxyhemoglobin 94.4 (94-98) 07/22/20 11:00 ABG Methemoglobin 0.3 (0.0-1.5) 07/22/20 11:00 ABG Sodium 145.8 mmol/L (136.0-145.0) H 07/22/20 11:00 ABG Potassium 3.9 mmol/L (3.40-4.50) 07/22/20 11:00 ABG Chloride 114.0 mmol/L (98-107) H 07/22/20 11:00 ABG Glucose 125 mg/dL (65-95) H 07/22/20 11:00 Carboxyhemoglobin 0.5 (0.5-1.5) 07/22/20 11:00 FiO2 % 90 07/22/20 11:00 Sodium 163 mmol/L (137-145) H* 07/24/20 05:29 Potassium 4.0 mmol/L (3.6-5.0) 07/24/20 05:29 Chloride 118.6 mmol/L (98-107) H 07/24/20 05:29 Carbon Dioxide 28 mmol/L (22-30) 07/24/20 05:29 Anion Gap 20 mmol/L 07/24/20 05:29 BUN 33 mg/dL (7-17) H 07/24/20 05:29 Creatinine 0.7 mg/dL (0.6-1.2) 07/24/20 05:29 Estimated GFR > 60 ml/min 07/24/20 05:29 BUN/Creatinine Ratio 47 % 07/24/20 05:29 Glucose 118 mg/dL (65-100) H 07/24/20 05:29 POC Glucose 106 mg/dL (70-105) H 07/24/20 02:17 Lactic Acid 1.90 mmol/L (0.7-2.0) 07/20/20 21:59 Calcium 7.9 mg/dL (8.4-10.2) L 07/24/20 05:29 Phosphorus 1.80 mg/dL (2.5-4.5) L 07/23/20 17:33 Magnesium 2.30 mg/dL (1.7-2.3) 07/23/20 17:33 Ferritin 1648.0 ng/mL (10.0-200.0) H 07/20/20 21:59 Total Bilirubin 0.50 mg/dL (0.1-1.2) 07/23/20 17:33 Direct Bilirubin < 0.2 mg/dL (0-0.2) 07/23/20 17:33 Indirect Bilirubin 0.3 mg/dL 07/23/20 17:33 AST 158 units/L (5-40) H 07/23/20 17:33 ALT 96 units/L (7-56) H 07/23/20 17:33 Alkaline Phosphatase 113 units/L (35-129) 07/23/20 17:33 Ammonia 39.0 umol/L (25-60) 07/23/20 17:33 Lactate Dehydrogenase 732 units/L (91-180) H 07/20/20 21:59 Total Creatine Kinase 34974 units/L (30-135) H 07/21/20 08:20 CK-MB (CK-2) 289.0 ng/mL (0.0-4.0) H 07/20/20 19:27 CK-MB (CK-2) Rel Index 2.0 (0-4) 07/20/20 19:27 Troponin T 0.026 ng/mL (0.00-0.029) 07/20/20 19:27 C-Reactive Protein 37.90 mg/dL (0.00-1.30) H 07/20/20 21:59 Total Protein 6.2 g/dL (6.3-8.2) L 07/23/20 17:33 Albumin 2.9 g/dL (3.9-5) L 07/23/20 17:33 Albumin/Globulin Ratio 0.9 % 07/23/20 17:33 Procalcitonin 40.67 ng/mL (<0.15) 07/20/20 21:59 TSH 0.454 mlU/mL (0.270-4.200) 07/20/20 19:27 Free T4 0.87 ng/dL (0.76-1.46) 07/20/20 19:27 Arterial Blood Glucose 125 mg/dL (65-95) H 07/22/20 11:00 Arterial Blood Ionized Calcium 4.2 mg/dL (4.6-5.3) L 07/22/20 11:00 Urine Color Yellow (Yellow) 07/21/20 Unknown Urine Turbidity Cloudy (Clear) 07/21/20 Unknown Urine pH 5.0 (5.0-7.0) 07/21/20 Unknown Ur Specific [place] 1.013 (1.003-1.030) 07/21/20 Unknown Urine Protein 30 mg/dl mg/dL (Negative) 07/21/20 Unknown Urine Glucose (UA) Neg mg/dL (Negative) 07/21/20 Unknown Urine Ketones Neg mg/dL (Negative) 07/21/20 Unknown Urine Blood Lg (Negative) 07/21/20 Unknown Urine Nitrite Neg (Negative) 07/21/20 Unknown Urine Bilirubin Neg (Negative) 07/21/20 Unknown Urine Urobilinogen < 2.0 mg/dL (<2.0) 07/21/20 Unknown Ur Leukocyte Esterase Sm (Negative) 07/21/20 Unknown Urine WBC (Auto) 28.0 /HPF (0.0-6.0) H 07/21/20 Unknown Urine RBC (Auto) 89.0 /HPF (0.0-6.0) 07/21/20 Unknown U Epithel Cells (Auto) 1.0 /HPF (0-13.0) 07/21/20 Unknown Urine WBC Clumps 2+ /HPF 07/21/20 Unknown Hyaline Casts 9 /LPF 07/21/20 Unknown Urine Mucus Few /HPF 07/21/20 Unknown Urine Yeast (Budding) 3+ /HPF 07/20/20 19:52 Urine Eosinophils None seen (None Seen) 07/21/20 Unknown Urine Creatinine < 4.2 mg/dL (0.1-20.0) 07/21/20 Unknown Urine Sodium 10 mmol/L 07/21/20 Unknown Random Vancomycin 4.7 ug/mL (0-40.0) 07/22/20 06:27 Urine Opiates Screen Positive 07/20/20 19:52 Urine Methadone Screen Negative 07/20/20 19:52 Ur Barbiturates Screen Negative 07/20/20 19:52 Ur Phencyclidine Scrn Negative 07/20/20 19:52 Ur Amphetamines Screen Negative 07/20/20 19:52 U Benzodiazepines Scrn Positive 07/20/20 19:52 Urine Cocaine Screen Negative 07/20/20 19:52 U Marijuana (THC) Screen Negative 07/20/20 19:52 Drugs of Abuse Note Disclamer 07/20/20 19:52 Coronavirus (PCR) Negative (Negative) 07/21/20 08:20 Hepatitis A IgM Ab Non-reactive (NonReactive) 07/23/20 17:33 Hep Bs Antigen Non-reactive (Negative) 07/23/20 17:33 Hep B Core IgM Ab Non-reactive (NonReactive) 07/23/20 17:33 Hepatitis C Antibody Reactive (NonReactive) A 07/23/20 17:33 Blood Type O POSITIVE 07/20/20 23:15 Antibody Screen Negative 07/20/20 23:15 Microbiology: Microbiology 07/20/20 19:32 Peripheral/Venous Blood Culture - Preliminary NO GROWTH AFTER 72 HOURS 07/20/20 19:27 Peripheral/Venous Blood Culture - Preliminary NO GROWTH AFTER 72 HOURS 07/20/20 Unknown Urine,Clean Catch Urine Culture - Final Klebsiella Pneumoniae Russell/IV: Voiding Method Indwelling Catheter Active Medications - Current Medications Current Medications: Generic Name Dose Route Start Last Admin Trade Name Freq PRN Reason Stop Dose Admin Acetaminophen 650 mg 07/20/20 22:51 Acetaminophen 325 Mg/10.15 Ml Oral Liqd Unit Dose FEEDTUBE Q6H PRN Pain MILD(1-3)/Fever >100.5/HESS Albuterol/Ipratropium 1 ampul 07/20/20 23:00 07/24/20 03:19 Ipratropium/Albuterol Sulfate 3 Ml Ampul.Neb IH Not Given Q6HRT HONEY Famotidine 20 mg 07/20/20 23:00 07/23/20 18:40 Famotidine 20 Mg/2 Ml Inj IV 20 mg QAM HONEY Administration Haloperidol Lactate 5 mg 07/22/20 12:00 07/24/20 00:47 Haloperidol Lactate 5 Mg/1 Ml Inj IV Not Given Q6H HONEY Haloperidol Lactate 5 mg 07/23/20 17:24 Haloperidol Lactate 5 Mg/1 Ml Inj IV Q1HR PRN Unrespon. to mult. doses BZD's Heparin Sodium (Porcine) 5,000 unit 07/21/20 10:00 07/23/20 23:02 Heparin 5,000 Unit/1 Ml Vial SUB-Q 5,000 unit Q12HR HONEY Administration Hydralazine HCl 10 mg 07/22/20 23:25 Hydralazine 20 Mg/1 Ml Inj IV Q6H PRN Hypertension Dextrose 1,000 mls @ 125 mls/hr 07/23/20 13:00 07/24/20 07:28 D5w IV 125 mls/hr DIRECT HONEY Administration Folic Acid 1 mg/ Sodium 50.2 mls @ 200.8 mls/hr 07/23/20 18:00 07/23/20 20:51 Chloride IV 200.8 mls/hr QDAY HONEY Administration Thiamine HCl 100 mg/ Sodium 51 mls @ 100 mls/hr 07/23/20 18:00 07/23/20 20:50 Chloride IV 100 mls/hr QDAY HONEY Administration Ceftriaxone Sodium 1 gm in 50 mls @ 100 mls/hr 07/24/20 10:00 Rocephin/Ns 1 Gm/50 Ml IV 07/27/20 10:29 Q24H HONEY Protocol Lorazepam 2 mg 07/23/20 17:24 07/24/20 07:21 Lorazepam 2 Mg/Ml Vial IV 2 mg Q1HR PRN Administration CIWA-Ar 8-15 Lorazepam 4 mg 07/23/20 17:24 Lorazepam 2 Mg/Ml Vial IV Q1HR PRN CIWA-Ar 16-25 Lorazepam 4 mg 07/23/20 17:24 Lorazepam 2 Mg/Ml Vial IV Q15MIN PRN CIWA-Ar >25 Metoclopramide HCl 5 mg 07/20/20 22:51 Metoclopramide 10 Mg/2 Ml Inj IV Q6H PRN Nausea And Vomiting Morphine Sulfate 2 mg 07/24/20 09:00 07/24/20 08:35 Morphine 2 Mg/1 Ml Inj IV 2 mg Q4H PRN Administration Pain, Moderate (4-6) Sodium Chloride 10 ml 07/21/20 10:00 07/23/20 23:05 Sodium Chloride 0.9% 10 Ml Flush Syringe IV 10 ml BID HONEY Administration Sodium Chloride 10 ml 07/20/20 22:51 07/24/20 05:56 Sodium Chloride 0.9% 10 Ml Flush Syringe IV 10 ml PRN PRN Administration LINE FLUSH Nutrition/Malnutrition Assess - Dietary Evaluation Nutrition/Malnutrition Findings: Nutrition Notes Start: 07/22/20 12:24 Freq: Status: Active Protocol: Document 07/22/20 12:24 LP (Rec: 07/22/20 12:30 LP [id number]) Nutrition Notes Need for 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 Pt possibly going to hospice. No plans to feed at this time. Burn Absent Trauma Absent GI Symptoms Last BM Current % PO Negligible Minimum of two criteria No physical signs of malnutrition #1 Nutrition Diagnosis Inadequate oral intake Etiology AMS As Evidenced by Signs and Symptoms Pt currently NPO Is patient on ventilator? No Is Patient Ambulatory and/or Out of Bed No REE-([facility]-confined to bed) 1258.560 Calculation Used for Recommendations [facility] Additional Notes Protein needs are 64-106g (1.2 -2g/kg) Fluid needs are 1ml/kcal Nutrition Intervention Change Diet Order: comfort measures or TF Goal #1 Consult for TF or comfort care Anticipated Discharge Needs: Unable to determine at this time Follow-Up By: 07/25/20 Additional Comments Follow for POC
[2020-07-24] MEDS: FAMOTIDINE 20 MG/2 ML INJ IV SCH (09:28)
[2020-07-24] MEDS: HEPARIN 5,000 UNIT/1 ML VIAL SUB-Q SCH ×2 (09:28→21:13)
[2020-07-24] MEDS: cefTRIAXone/NS 1 GM/50 ML 1 GM/50 ML BAG IV SCH (09:31)
[2020-07-24] MEDS: THIAMINE 100 MG in SODIUM CHLORIDE 0.9% 50 ML IV SCH (09:43)
[2020-07-24] MEDS: FOLIC ACID 1 MG in SODIUM CHLORIDE 0.9% 50 ML IV SCH (09:43)
--- NOTE | 2020-07-24 14:28 | Consultation ---
History of Present Illness - Reason for Consult Consult date: 07/24/20 Sepsis Requesting physician: NEELA CARBAJAL - History of Present Illness The patient is a 65-year-old female with hepatitis C, hypertension, migraines admitted to the hospital with altered mental status. Reportedly, patient was weak following her second Covid 19 vaccination 2 days prior to admission. She was having some fevers on and off. Upon evaluation in the ER, she was noted to have sepsis with leukocytosis, acidosis, lactic acid elevation, acute kidney injury and rhabdomyolysis. There was also concern for UTI, infectious diseases was consulted for additional evaluation. Currently, she is in ICU, on BiPAP, in restraints. Has an indwelling Russell catheter. She was significantly hypothermic on admission, no fevers as such. Leukocytosis has been gradually improving. Review of Systems: Limited, confused, on BiPAP Past History Past Medical History: hepatitis, hypertension Medications and Allergies Allergies Allergy/AdvReac Type Severity Reaction Status Date / Time Iodine and Iodide Containing AdvReac Rash Verified 10/26/18 10:10 Produc Home Medications Medication Instructions Recorded Confirmed Last Taken Type Ondansetron [Zofran TAB] 4 mg PO Q8HR PRN #15 tablet 07/17/17 Unknown Rx Ibuprofen [Motrin 600 MG tab] 600 mg PO Q8H PRN #30 tablet 01/18/18 Unknown Rx Sulfamethoxazole/Trimethoprim 1 each PO BID 10 Days #20 tablet 01/18/18 Unknown Rx [Bactrim DS TAB] cephALEXin [Keflex] 500 mg PO Q12HR #20 capsule 01/18/18 Unknown Rx Famotidine [Pepcid] 20 mg PO BID #10 tablet 05/17/18 Unknown Rx Mag Hydrox/Aluminum Hyd/Simeth 15 ml PO QID #1 oral.susp 05/17/18 Unknown Rx [Maalox Advanced Suspension] Ondansetron [Zofran ODT TAB] 8 mg PO Q12HR #20 tab.rapdis 05/17/18 Unknown Rx Acetaminophen/Codeine [Tylenol 1 tab PO Q6H PRN #12 tab 10/26/18 Unknown Rx /Codeine # 3 tab] Clindamycin [Clindamycin CAP] 300 mg PO Q8H #21 cap 10/26/18 Unknown Rx Esomeprazole Magnesium [NexIUM] 40 mg PO QDAY 20 Days #20 06/04/19 Unknown Rx capsule. ALPRAZolam [Xanax TAB] 2 mg PO Q8H 07/23/20 07/23/20 Unknown History Carisoprodol [Soma] 350 mg PO Q6H 07/23/20 07/23/20 Unknown History Ezetimibe [Zetia] 10 mg PO DAILY 07/23/20 07/23/20 Unknown History Gabapentin [Neurontin] 600 mg PO Q6H 07/23/20 07/23/20 Unknown History HYDROcodone/APAP 5-325 1 tab Q6H 07/23/20 07/23/20 Unknown History SUMAtriptan SUCCINATE [Imitrex] 100 mg PO Q2H PRN 07/23/20 07/23/20 Unknown History Active Meds: Active Medications Acetaminophen (Acetaminophen 325 Mg/10.15 Ml Oral Liqd Unit Dose) 650 mg FEEDTUBE Q6H PRN PRN Reason: Pain MILD(1-3)/Fever >100.5/HESS Albuterol/Ipratropium (Ipratropium/Albuterol Sulfate 3 Ml Ampul.Neb) 1 ampul IH Q6HRT [facility] Last Admin: 07/24/20 03:19 Dose: Not Given Documented by: Famotidine (Famotidine 20 Mg/2 Ml Inj) 20 mg IV QAM [facility] Last Admin: 07/24/20 09:28 Dose: 20 mg Documented by: Haloperidol Lactate (Haloperidol Lactate 5 Mg/1 Ml Inj) 5 mg IV Q6H [facility] Last Admin: 07/24/20 12:06 Dose: 5 mg Documented by: Haloperidol Lactate (Haloperidol Lactate 5 Mg/1 Ml Inj) 5 mg IV Q1HR PRN PRN Reason: Unrespon. to mult. doses BZD's Heparin Sodium (Porcine) (Heparin 5,000 Unit/1 Ml Vial) 5,000 unit SUB-Q Q12HR [facility] Last Admin: 07/24/20 09:28 Dose: 5,000 unit Documented by: Hydralazine HCl (Hydralazine 20 Mg/1 Ml Inj) 10 mg IV Q6H PRN PRN Reason: Hypertension Dextrose (D5w) 1,000 mls @ 125 mls/hr IV DIRECT [facility] Last Admin: 07/24/20 07:28 Dose: 125 mls/hr Documented by: Folic Acid 1 mg/ Sodium (Chloride) 50.2 mls @ 200.8 mls/hr IV QDAY [facility] Last Infusion: 07/24/20 10:15 Dose: Infused Documented by: Thiamine HCl 100 mg/ Sodium (Chloride) 51 mls @ 100 mls/hr IV QDAY HONEY Last Infusion: 07/24/20 10:45 Dose: Infused Documented by: Ceftriaxone Sodium (Rocephin/Ns 1 Gm/50 Ml) 1 gm in 50 mls @ 100 mls/hr IV Q24H [facility]ONE[facility]; Protocol Stop: 07/27/20 10:29 Last Infusion: 07/24/20 10:00 Dose: 0 mls/hr Documented by: Lorazepam (Lorazepam 2 Mg/Ml Vial) 2 mg IV Q1HR PRN PRN Reason: CIWA-Ar 8-15 Last Admin: 07/24/20 07:21 Dose: 2 mg Documented by: Lorazepam (Lorazepam 2 Mg/Ml Vial) 4 mg IV Q1HR PRN PRN Reason: CIWA-Ar 16-25 Last Admin: 07/24/20 10:45 Dose: 4 mg Documented by: Lorazepam (Lorazepam 2 Mg/Ml Vial) 4 mg IV Q15MIN PRN PRN Reason: CIWA-Ar >25 Metoclopramide HCl (Metoclopramide 10 Mg/2 Ml Inj) 5 mg IV Q6H PRN PRN Reason: Nausea And Vomiting Morphine Sulfate (Morphine 2 Mg/1 Ml Inj) 2 mg IV Q4H PRN PRN Reason: Pain, Moderate (4-6) Last Admin: 07/24/20 08:35 Dose: 2 mg Documented by: Sodium Chloride (Sodium Chloride 0.9% 10 Ml Flush Syringe) 10 ml IV BID [facility] Last Admin: 07/24/20 09:28 Dose: 10 ml Documented by: Sodium Chloride (Sodium Chloride 0.9% 10 Ml Flush Syringe) 10 ml IV PRN PRN PRN Reason: LINE FLUSH Last Admin: 07/24/20 05:56 Dose: 10 ml Documented by: Physical Examination - Physical Exam Narrative exam: Physical Exam: Constitutional: Confused, on BiPAP Head, Ears, Nose: Normocephalic, atraumatic. External ears, nose normal Eyes: Conjunctivae/corneas clear. No icterus. No ptosis. Neck: Limited due to BiPAP Oral: BiPAP Cardiovascular: S1, S2 normal. Respiratory: Good air entry, clear to auscultation bilaterally GI: Soft, non-tender; bowel sounds normal. No peritoneal signs Musculoskeletal: No pedal edema, no cyanosis. Skin: No rash or abscess Hem/Lymphatic: No palpable cervical or supraclavicular nodes. No lymphangitis Psych: Agitated, restraints present Neurological: Confused - Constitutional Vitals: Vital Signs Temp Pulse Resp BP Pulse Ox 97.8 F 76 30 H 162/97 98 07/24/20 12:00 07/24/20 14:01 07/24/20 14:01 07/24/20 14:01 07/24/20 14:01 Temperature -Last 24 Hours Temperature 97.8 F Temperature 97 F Temperature 98.8 F Temperature 98 F Temperature 97.8 F Temperature 98.5 F Results - Labs CBC & Chem 7: 07/23/20 04:48 07/24/20 05:29 Labs: Abnormal lab results 07/23/20 07/23/20 07/23/20 Range/Units 14:33 17:33 17:33 Sodium 157 H (137-145) mmol/L Potassium 3.5 L (3.6-5.0) mmol/L Chloride 115.0 H (98-107) mmol/L Carbon Dioxide 32 H (22-30) mmol/L BUN 34 H (7-17) mg/dL Glucose 119 H (65-100) mg/dL POC Glucose (70-105) mg/dL Calcium (8.4-10.2) mg/dL Phosphorus 1.80 L (2.5-4.5) mg/dL AST 158 H (5-40) units/L ALT 96 H (7-56) units/L Total Protein 6.2 L (6.3-8.2) g/dL Albumin 2.9 L (3.9-5) g/dL Hepatitis C Antibody (NonReactive) 07/23/20 07/24/20 07/24/20 Range/Units 17:33 02:17 05:20 Sodium (137-145) mmol/L Potassium (3.6-5.0) mmol/L Chloride (98-107) mmol/L Carbon Dioxide (22-30) mmol/L BUN (7-17) mg/dL Glucose (65-100) mg/dL POC Glucose 106 H 111 H (70-105) mg/dL Calcium (8.4-10.2) mg/dL Phosphorus (2.5-4.5) mg/dL AST (5-40) units/L ALT (7-56) units/L Total Protein (6.3-8.2) g/dL Albumin (3.9-5) g/dL Hepatitis C Antibody Reactive A (NonReactive) 07/24/20 07/24/20 07/24/20 Range/Units 05:29 08:00 11:52 Sodium 163 H* (137-145) mmol/L Potassium (3.6-5.0) mmol/L Chloride 118.6 H (98-107) mmol/L Carbon Dioxide (22-30) mmol/L BUN 33 H (7-17) mg/dL Glucose 118 H (65-100) mg/dL POC Glucose 109 H 118 H (70-105) mg/dL Calcium 7.9 L (8.4-10.2) mg/dL Phosphorus (2.5-4.5) mg/dL AST (5-40) units/L ALT (7-56) units/L Total Protein (6.3-8.2) g/dL Albumin (3.9-5) g/dL Hepatitis C Antibody (NonReactive) - Imaging and Cardiology Chest x-ray: report reviewed, image reviewed (mild interstitial edema) Assessment and Plan Cultures: 07/21/2020 COVID-19 PCR: Negative Hepatitis C antibody: Reactive 07/20/2020 blood culture: No growth 07/20/2020 urine culture: Klebsiella pneumonia A/P: 65-year-old female with hepatitis C, hypertension, migraines admitted to the hospital with altered mental status, hypothermic, septic: #Sepsis: Likely secondary to UTI. UA with significant pyuria. Chest x-ray on admission revealed some interstitial edema, no dense air bronchograms as such. Remains on antibiotics. #Acute encephalopathy: Likely metabolic. Sodium is up to 163. #DOREEN: Resolved #Acute resp failure; on BiPAP. #Chronic hepatitis C: Antibody positive. Treatment status unknown. Can be worked up as an outpatient. Recs: -Continue IV ceftriaxone Fabiano Sanchez MD, FACP [facility] ([facility] O: [phone] F: [phone]
--- NOTE | 2020-07-24 14:42 | Progress Note ---
Assessment and Plan Impression: * Nonoliguric DOREEN secondary to multifactorial etiologies: prerenal component due to volume depletion vs ATN (sepsis) * Acute hypoxic respiratory failure * Sepsis * Klebsiella UTI * Acute encephelopathy * Uremia * Hyperkalemia * Acidosis, respiratory w/ inadequate metabolic compensation Plan: * Renal function improved with volume resuscitation. No acute indication for renal replacement therapy at this time. Continue conservative management * Continue IVF D5W 125ml/hour * ?Possible withdrawal - note order for Ativan prn * Abx per primary team * Pressors prn to maintain MAP>65 * Avoid potential nephrotoxins * Dose medications for renal function * AM labs Subjective Date of service: 07/24/20 Interval history: No acute events overnight. Remains on BiPAP Objective - Vital Signs Vital signs: Vital Signs - 12hr 07/24/20 07/24/20 07/24/20 03:01 03:17 03:23 Temperature 98.8 F Pulse Rate 113 H 119 H Pulse Rate [ Right Dorsalis Pedis] Respiratory 46 H 38 H Rate Blood Pressure 198/154 198/154 O2 Sat by Pulse 97 96 Oximetry 07/24/20 07/24/20 07/24/20 04:01 04:30 05:01 Temperature Pulse Rate 113 H 113 H 118 H Pulse Rate [ Right Dorsalis Pedis] Respiratory 34 H 34 H 46 H Rate Blood Pressure 198/154 183/117 O2 Sat by Pulse 98 97 96 Oximetry 07/24/20 07/24/20 07/24/20 06:01 07:01 07:29 Temperature Pulse Rate 73 110 H 111 H Pulse Rate [ Right Dorsalis Pedis] Respiratory 21 43 H 52 H Rate Blood Pressure 144/112 144/112 O2 Sat by Pulse 97 92 95 Oximetry 07/24/20 07/24/20 07/24/20 08:00 08:01 09:01 Temperature 97 F L Pulse Rate 88 97 H 109 H Pulse Rate [ 115 H Right Dorsalis Pedis] Respiratory 39 H 43 H 40 H Rate Blood Pressure 162/98 126/102 O2 Sat by Pulse 90 92 90 Oximetry 07/24/20 07/24/20 07/24/20 10:01 11:01 11:21 Temperature Pulse Rate 118 H 99 H 79 Pulse Rate [ Right Dorsalis Pedis] Respiratory 40 H 31 H 30 H Rate Blood Pressure 174/116 169/36 O2 Sat by Pulse 85 90 91 Oximetry 07/24/20 07/24/20 07/24/20 12:00 12:01 13:00 Temperature 97.8 F Pulse Rate 87 103 H 76 Pulse Rate [ 115 H Right Dorsalis Pedis] Respiratory 39 H 46 H 28 H Rate Blood Pressure 133/81 131/85 O2 Sat by Pulse 90 82 L 97 Oximetry 07/24/20 14:01 Temperature Pulse Rate 76 Pulse Rate [ Right Dorsalis Pedis] Respiratory 30 H Rate Blood Pressure 162/97 O2 Sat by Pulse 98 Oximetry - General Appearance General appearance: well-developed, other (Bipap in place) EENT: ATNC Respiratory: Present: Ronchi Cardiology: regular, S1S2 Gastrointestinal: normal, no tenderness, no distended Integumentary: no rash, warm and dry Neurologic: other (agitated) Musculoskeletal: other (no edema) - Lab 07/23/20 04:48 07/24/20 14:43 Most recent lab results ABG pH 7.423 (7.320-7.450) 07/22/20 11:00 ABG O2 Saturation 95.2 (0-100) 07/22/20 11:00 Calcium 7.9 mg/dL (8.4-10.2) L 07/24/20 05:29 Phosphorus 1.80 mg/dL (2.5-4.5) L 07/23/20 17:33 Magnesium 2.30 mg/dL (1.7-2.3) 07/23/20 17:33 Urine Creatinine < 4.2 mg/dL (0.1-20.0) 07/21/20 Unknown Urine Sodium 10 mmol/L 07/21/20 Unknown Medications & Allergies - Medications Allergies/Adverse Reactions: Allergies Iodine and Iodide Containing Produc Adverse Reaction (Verified 10/26/18 10:10) Rash Home Medications: Home Medications Medication Instructions Recorded Confirmed Last Taken Type Ondansetron [Zofran TAB] 4 mg PO Q8HR PRN #15 tablet 07/17/17 Unknown Rx Ibuprofen [Motrin 600 MG tab] 600 mg PO Q8H PRN #30 tablet 01/18/18 Unknown Rx Sulfamethoxazole/Trimethoprim 1 each PO BID 10 Days #20 tablet 01/18/18 Unknown Rx [Bactrim DS TAB] cephALEXin [Keflex] 500 mg PO Q12HR #20 capsule 01/18/18 Unknown Rx Famotidine [Pepcid] 20 mg PO BID #10 tablet 05/17/18 Unknown Rx Mag Hydrox/Aluminum Hyd/Simeth 15 ml PO QID #1 oral.susp 05/17/18 Unknown Rx [Maalox Advanced Suspension] Ondansetron [Zofran ODT TAB] 8 mg PO Q12HR #20 tab.rapdis 05/17/18 Unknown Rx Acetaminophen/Codeine [Tylenol 1 tab PO Q6H PRN #12 tab 10/26/18 Unknown Rx /Codeine # 3 tab] Clindamycin [Clindamycin CAP] 300 mg PO Q8H #21 cap 10/26/18 Unknown Rx Esomeprazole Magnesium [NexIUM] 40 mg PO QDAY 20 Days #20 06/04/19 Unknown Rx capsule. ALPRAZolam [Xanax TAB] 2 mg PO Q8H 07/23/20 07/23/20 Unknown History Carisoprodol [Soma] 350 mg PO Q6H 07/23/20 07/23/20 Unknown History Ezetimibe [Zetia] 10 mg PO DAILY 07/23/20 07/23/20 Unknown History Gabapentin [Neurontin] 600 mg PO Q6H 07/23/20 07/23/20 Unknown History HYDROcodone/APAP 5-325 1 tab Q6H 07/23/20 07/23/20 Unknown History SUMAtriptan SUCCINATE [Imitrex] 100 mg PO Q2H PRN 07/23/20 07/23/20 Unknown History Active Medications: Generic Name Dose Route Start Last Admin Trade Name Freq PRN Reason Stop Dose Admin Acetaminophen 650 mg 07/20/20 22:51 Acetaminophen 325 Mg/10.15 Ml Oral Liqd Unit Dose FEEDTUBE Q6H PRN Pain MILD(1-3)/Fever >100.5/HESS Albuterol/Ipratropium 1 ampul 07/20/20 23:00 07/24/20 03:19 Ipratropium/Albuterol Sulfate 3 Ml Ampul.Neb IH Not Given Q6HRT HONEY Famotidine 20 mg 07/20/20 23:00 07/24/20 09:28 Famotidine 20 Mg/2 Ml Inj IV 20 mg QAM [facility] Administration Haloperidol Lactate 5 mg 07/22/20 12:00 07/24/20 12:06 Haloperidol Lactate 5 Mg/1 Ml Inj IV 5 mg Q6H [facility]Y Administration Haloperidol Lactate 5 mg 07/23/20 17:24 Haloperidol Lactate 5 Mg/1 Ml Inj IV Q1HR PRN Unrespon. to mult. doses BZD's Heparin Sodium (Porcine) 5,000 unit 07/21/20 10:00 07/24/20 09:28 Heparin 5,000 Unit/1 Ml Vial SUB-Q 5,000 unit Q12HR [facility]Y Administration Hydralazine HCl 10 mg 07/22/20 23:25 Hydralazine 20 Mg/1 Ml Inj IV Q6H PRN Hypertension Dextrose 1,000 mls @ 125 mls/hr 07/23/20 13:00 07/24/20 07:28 D5w IV 125 mls/hr DIRECT [facility]Y Administration Folic Acid 1 mg/ Sodium 50.2 mls @ 200.8 mls/hr 07/23/20 18:00 07/24/20 10:15 Chloride IV Infused QDAY [facility] Infusion Thiamine HCl 100 mg/ Sodium 51 mls @ 100 mls/hr 07/23/20 18:00 07/24/20 10:45 Chloride IV Infused QDAY [facility] Infusion Ceftriaxone Sodium 1 gm in 50 mls @ 100 mls/hr 07/24/20 10:00 07/24/20 10:00 Rocephin/Ns 1 Gm/50 Ml IV 07/27/20 10:29 0 mls/hr Q24H [facility] Infusion Protocol Lorazepam 2 mg 07/23/20 17:24 07/24/20 07:21 Lorazepam 2 Mg/Ml Vial IV 2 mg Q1HR PRN Administration CIWA-Ar 8-15 Lorazepam 4 mg 07/23/20 17:24 07/24/20 10:45 Lorazepam 2 Mg/Ml Vial IV 4 mg Q1HR PRN Administration CIWA-Ar 16-25 Lorazepam 4 mg 07/23/20 17:24 Lorazepam 2 Mg/Ml Vial IV Q15MIN PRN CIWA-Ar >25 Metoclopramide HCl 5 mg 07/20/20 22:51 Metoclopramide 10 Mg/2 Ml Inj IV Q6H PRN Nausea And Vomiting Morphine Sulfate 2 mg 07/24/20 09:00 07/24/20 08:35 Morphine 2 Mg/1 Ml Inj IV 2 mg Q4H PRN Administration Pain, Moderate (4-6) Sodium Chloride 10 ml 07/21/20 10:00 07/24/20 09:28 Sodium Chloride 0.9% 10 Ml Flush Syringe IV 10 ml BID HONEY Administration Sodium Chloride 10 ml 07/20/20 22:51 07/24/20 05:56 Sodium Chloride 0.9% 10 Ml Flush Syringe IV 10 ml PRN PRN Administration LINE FLUSH
[2020-07-24] MEDS: hydrALAZINE 20 MG/1 ML INJ IV PRN (15:02)
[2020-07-24 15:14] LABS: Blood Urea Nitrogen 28 mg/dL (7-17); Calcium 8.2 mg/dL (8.4-10.2); Hemolysis Index 123
[2020-07-24 15:17] LABS: BUN/Creatinine Ratio 47
[2020-07-24] MEDS ORDERED: SIMPLE SYRUP 15 ML FEEDTUBE PRN ×2 (18:26)
[2020-07-24] MEDS ORDERED: SODIUM BICARBONATE 325 MG TAB FEEDTUBE PRN (18:26)
[2020-07-24] MEDS ORDERED: LIPASE 10,500/PROTEASE 25,000/AMYLASE 43,750 (UNITS) DR CAP FEEDTUBE PRN (18:26)
--- NOTE | 2020-07-24 18:26 | Event Note ---
Date: 07/24/20 Arond 6:30 PM patient's and her sister called and change her code status to full code, he wants NG tube feeding. NG tube ordered. Dietary consulted.
[2020-07-24] MEDS ORDERED: NON-FORMULARY EACH (Alprazolam [Xanax Tab] 2 MG Tablet) PO SCH (18:30)
--- NOTE | 2020-07-24 19:09 | XRay Report ---
ABDOMEN 1 VIEW INDICATION / CLINICAL INFORMATION: NGT placement. COMPARISON: 06/04/2019. FINDINGS: TUBES / LINES: Esophagogastric tube tip and sidehole project over the upper abdomen in the region of the stomach. BOWEL GAS PATTERN: No significant abnormality. FREE AIR / EXTRALUMINAL GAS: None seen. ADDITIONAL FINDINGS: No significant additional findings. IMPRESSION: 1. Esophagogastric tube in expected position. Signer Name: Jorge Luis Galdamez MD Signed: 07/24/2020 7:04 PM Workstation Name: [id number]
[2020-07-24] MEDS: ALPRAZolam 1 MG TAB PO SCH (21:13)
[2020-07-25] MEDS: DEXTROSE 5% IN WATER 1,000 ML IV SCH ×2 (00:39→08:40)
[2020-07-25] MEDS: HALOPERIDOL LACTATE 5 MG/1 ML INJ IV SCH ×5 (01:26→23:57)
[2020-07-25] MEDS: LORazepam 2 MG/ML VIAL IV PRN ×3 (02:05→09:15)
[2020-07-25] MEDS: IPRATROPIUM/ALBUTEROL SULFATE 3 ML AMPUL.NEB IH SCH ×4 (04:34→20:56)
[2020-07-25] MEDS: ALPRAZolam 1 MG TAB PO SCH ×3 (04:59→21:29)
[2020-07-25 06:18] LABS: Basophils % (Auto) 0.1 % (0.0-1.8); Eosinophils % (Auto) 0.2 % (0.0-4.3); Hematocrit 30.9 % (30.3-42.9); Hemoglobin 10.4 gm/dl (10.1-14.3); Lymphocytes # (Auto) 1.1 K/mm3 (1.2-5.4); Lymphocytes % (Auto) 9.5 % (13.4-35.0); Mean Corpuscular HGB Conc 34 % (30-34); Mean Corpuscular Volume 99 fl (79-97); Monocytes # (Auto) 0.2 K/mm3 (0.0-0.8); Red Blood Count 3.11 M/mm3 (3.65-5.03); Red Cell Distribution Width 13.5 % (13.2-15.2)
[2020-07-25 06:19] LABS: Platelet Count 77 K/mm3 (140-440)
[2020-07-25 06:27] LABS: Blood Urea Nitrogen 21 mg/dL (7-17); Calcium 7.7 mg/dL (8.4-10.2); Hemolysis Index 16
[2020-07-25 06:30] LABS: BUN/Creatinine Ratio 42
[2020-07-25] MEDS: POTASSIUM CHLORIDE 20 MEQ 20 MEQ/100 ML BAG IV SCH ×2 (08:52→10:15)
[2020-07-25] MEDS: HEPARIN 5,000 UNIT/1 ML VIAL SUB-Q SCH (08:59)
[2020-07-25] MEDS: FOLIC ACID 1 MG in SODIUM CHLORIDE 0.9% 50 ML IV SCH (08:59)
[2020-07-25] MEDS: FAMOTIDINE 20 MG/2 ML INJ IV SCH (08:59)
[2020-07-25] MEDS: POTASSIUM CHLORIDE 20 MEQ PACKET FEEDTUBE SCH ×2 (09:00→13:00)
[2020-07-25] MEDS: THIAMINE 100 MG in SODIUM CHLORIDE 0.9% 50 ML IV SCH (09:00)
[2020-07-25] MEDS: cefTRIAXone/NS 1 GM/50 ML 1 GM/50 ML BAG IV SCH (09:15)
[2020-07-25] MEDS ORDERED: MAGNESIUM SULFATE 4 GM/100 ML BAG IV ONE (11:00)
--- NOTE | 2020-07-25 11:07 | Electrocardiograph Report ---
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
--- NOTE | 2020-07-25 11:53 | Progress Note ---
Assessment and Plan Cultures: 07/21/2020 COVID-19 PCR: Negative Hepatitis C antibody: Reactive 07/20/2020 blood culture: No growth 07/20/2020 urine culture: Klebsiella pneumoniae A/P: 65-year-old female with hepatitis C, hypertension, migraines admitted to the hospital with altered mental status, hypothermic, septic: #Sepsis: Likely secondary to UTI. UA with significant pyuria. Chest x-ray on admission revealed some interstitial edema, no dense air bronchograms as such. Remains on antibiotics. #Acute encephalopathy: Likely metabolic. Sodium was up to 163. #DOREEN: Resolved #Acute resp failure: on BiPAP. #Chronic hepatitis C: Antibody positive. Treatment status unknown. Can be worked up as an outpatient. Recs: -Continue IV ceftriaxone, D6 of abx overall -recheck CBC in AM Fabiano Sanchez MD, FACP [facility] O: [phone] F: [phone] Subjective Date of service: 07/25/20 Interval history: No fever. Remains on BiIPAP, encephalopathic. Objective - Exam Narrative Exam: Physical Exam: Constitutional: Encephalopathic, on BiPAP Head, Ears, Nose: Normocephalic, atraumatic. External ears, nose normal Eyes: Conjunctivae/corneas clear. No icterus. No ptosis. Neck: Limited due to BiPAP Oral: BiPAP Cardiovascular: S1, S2 normal. Respiratory: Good air entry, clear to auscultation bilaterally GI: Soft, non-tender; bowel sounds normal. No peritoneal signs Musculoskeletal: No pedal edema, no cyanosis. Skin: No rash or abscess Hem/Lymphatic: No palpable cervical or supraclavicular nodes. No lymphangitis Psych: encephalopathic Neurological: encephalopathic - Constitutional Vitals: Vital Signs Temp Pulse Resp BP Pulse Ox 98.2 F 81 40 H 157/96 95 07/25/20 04:00 07/25/20 10:01 07/25/20 10:01 07/25/20 10:01 07/25/20 11:05 Temperature -Last 24 Hours Temperature 98.2 F Temperature 98.8 F Temperature 98.7 F Temperature 97.2 F Temperature 97.8 F - Labs CBC & Chem 7: 07/25/20 05:15 07/25/20 05:15 Labs: Abnormal lab results 03/28/21 03/28/21 03/28/21 Range/Units 11:52 14:43 16:52 WBC (4.5-11.0) K/mm3 RBC (3.65-5.03) M/mm3 MCV (79-97) fl MCH (28-32) pg Plt Count (140-440) K/mm3 Lymph % (Auto) (13.4-35.0) % Lymph # (Auto) (1.2-5.4) K/mm3 Seg Neutrophils % (40.0-70.0) % Seg Neutrophils # (1.8-7.7) K/mm3 ABG pH (7.320-7.450) POC ABG pO2 (83-108) mmHg ABG Hemoglobin (12.0-17.5) ABG Sodium (136.0-145.0) mmol/L ABG Potassium (3.40-4.50) mmol/L ABG Chloride (98-107) mmol/L ABG Glucose (65-95) mg/dL Sodium 155 H (137-145) mmol/L Potassium 3.5 L (3.6-5.0) mmol/L Chloride 112.7 H (98-107) mmol/L Carbon Dioxide 32 H (22-30) mmol/L BUN 28 H (7-17) mg/dL Creatinine (0.6-1.2) mg/dL Glucose 125 H (65-100) mg/dL POC Glucose 118 H 111 H (70-105) mg/dL Calcium 8.2 L (8.4-10.2) mg/dL Arterial Blood Glucose (65-95) mg/dL Arterial Blood Ionized Calcium (4.6-5.3) mg/dL 07/24/20 07/24/20 07/25/20 Range/Units 19:33 23:02 02:12 WBC (4.5-11.0) K/mm3 RBC (3.65-5.03) M/mm3 MCV (79-97) fl MCH (28-32) pg Plt Count (140-440) K/mm3 Lymph % (Auto) (13.4-35.0) % Lymph # (Auto) (1.2-5.4) K/mm3 Seg Neutrophils % (40.0-70.0) % Seg Neutrophils # (1.8-7.7) K/mm3 ABG pH 7.523 H (7.320-7.450) POC ABG pO2 76.4 L (83-108) mmHg ABG Hemoglobin 10.3 L (12.0-17.5) ABG Sodium 151.2 H (136.0-145.0) mmol/L ABG Potassium 2.4 L (3.40-4.50) mmol/L ABG Chloride 111.0 H (98-107) mmol/L ABG Glucose 125 H (65-95) mg/dL Sodium (137-145) mmol/L Potassium (3.6-5.0) mmol/L Chloride (98-107) mmol/L Carbon Dioxide (22-30) mmol/L BUN (7-17) mg/dL Creatinine (0.6-1.2) mg/dL Glucose (65-100) mg/dL POC Glucose 127 H 124 H (70-105) mg/dL Calcium (8.4-10.2) mg/dL Arterial Blood Glucose 125 H (65-95) mg/dL Arterial Blood Ionized Calcium 4.3 L (4.6-5.3) mg/dL 07/25/20 07/25/20 07/25/20 Range/Units 05:15 05:15 05:42 WBC 12.0 H (4.5-11.0) K/mm3 RBC 3.11 L (3.65-5.03) M/mm3 MCV 99 H (79-97) fl MCH 33 H (28-32) pg Plt Count 77 L (140-440) K/mm3 Lymph % (Auto) 9.5 L (13.4-35.0) % Lymph # (Auto) 1.1 L (1.2-5.4) K/mm3 Seg Neutrophils % 88.2 H (40.0-70.0) % Seg Neutrophils # 10.6 H (1.8-7.7) K/mm3 ABG pH (7.320-7.450) POC ABG pO2 (83-108) mmHg ABG Hemoglobin (12.0-17.5) ABG Sodium (136.0-145.0) mmol/L ABG Potassium (3.40-4.50) mmol/L ABG Chloride (98-107) mmol/L ABG Glucose (65-95) mg/dL Sodium 152 H (137-145) mmol/L Potassium 2.6 L* D (3.6-5.0) mmol/L Chloride 109.5 H (98-107) mmol/L Carbon Dioxide 34 H (22-30) mmol/L BUN 21 H (7-17) mg/dL Creatinine 0.5 L (0.6-1.2) mg/dL Glucose 124 H (65-100) mg/dL POC Glucose 108 H (70-105) mg/dL Calcium 7.7 L (8.4-10.2) mg/dL Arterial Blood Glucose (65-95) mg/dL Arterial Blood Ionized Calcium (4.6-5.3) mg/dL
--- NOTE | 2020-07-25 12:33 | Progress Note ---
Assessment and Plan 65 y/o female with altered mental state, hypotension, renal failure and electrolyte imbalance with UTI seen on urine analysis and presumptive sepsis with distributive shock. 07/24/20: Will attempt to wean bipap therapy for sats >88%. Slowed rate of D5 down to not correct Na to fast. Suggest starting patient on PPN until bipap can be weaned off. She is very high risk for aspiration with NG tube feeds and continuous bipap therapy. More calm with PRN ativan therapy so will continue. BP elevated but no fever, still could be withdrawing from ETOH. Discussed on rounds and will see if patient is an LTACH candidate. 07/23/20: Will transfer to floor given her AND status. Family is still making decisions. Discussed with IM and they agree. WIll see PRN on the floor. Very poor prognosis. 07/22/20: Stop maintenance. Continue current abx therapy. Will start scheduled haldol therapy to see if this will hep mental sate. Suggest continuation of bicarb drip and will give a couple of amps of bicarb today. Follow up renal recs. Patient has moderate pulmonary hypertension seen on echo. Will obtain lung history once more awake or from . Could be related to underlying lung disease. CXR maybe more consistent with ILD than pulmonary edema. Will obtain CT of chest when more stable. Remove central line today and obtain peripheral access. Maybe stable enough for step down, will discuss on rounds. Can stop q6 hour BMP's. ONce off bipap can assess nutrition. 1. Needs more fluid resuscitation. Ordered for 2 more liters of saline now and additional to be bolused after rounds today 2. Agree with broad spec abx therapy follow up on cultures of urine and blood 3. Currently on bipap but hopeful we can wean as tolerated given improvement in mental status. 4. Spoke with renal and they agree with more volume and chemical management of hyperkalemia 5. Given CXR appearance and no other imaging, will obtain 2D echo as well. her hypotension could be from sepsis but need to make sure cardiac function is ok. She may need inotropic help with pressor requirement does not improve. 6. Continue to assess volume throughout the day 7. CMP q6 hours to monitor sodium and other electrolytes 8. ordered picc but likely will not happen today. continue right femoral groin line. 9. Hold on feeds given her pressor requirement and bipap requirement 10. DVT and GI prophylaxis. Guarded prognosis. CCT 31 minutes. Subjective Date of service: 07/25/20 Interval history: Patient's family rescinded DNR. Checked ABG and adequate on bipap therapy. NG tube was placed but feeds not started yet. Patient remains restrained and altered. Na is better and renal function has normalized. Objective Vital Signs - 12hr 07/25/20 07/25/20 07/25/20 01:00 01:54 02:00 Temperature Pulse Rate 78 78 106 H Pulse Rate [ Bilateral Throughout] Pulse Rate [ Right Dorsalis Pedis] Respiratory 29 H 30 H 40 H Rate Respiratory Rate [Bilateral Throughout] Blood Pressure 118/74 169/95 O2 Sat by Pulse 98 99 94 Oximetry 07/25/20 07/25/20 07/25/20 03:01 04:00 04:10 Temperature 98.2 F Pulse Rate 70 71 71 Pulse Rate [ Bilateral Throughout] Pulse Rate [ Right Dorsalis Pedis] Respiratory 27 H 28 H 27 H Rate Respiratory Rate [Bilateral Throughout] Blood Pressure 113/64 114/71 114/71 O2 Sat by Pulse 99 99 98 Oximetry 07/25/20 07/25/20 07/25/20 05:00 06:00 07:00 Temperature Pulse Rate 69 67 81 Pulse Rate [ Bilateral Throughout] Pulse Rate [ Right Dorsalis Pedis] Respiratory 28 H 26 H 31 H Rate Respiratory Rate [Bilateral Throughout] Blood Pressure 140/76 140/74 144/89 O2 Sat by Pulse 98 98 96 Oximetry 07/25/20 07/25/20 07/25/20 08:00 09:00 09:41 Temperature Pulse Rate 69 90 85 Pulse Rate [ 83 Bilateral Throughout] Pulse Rate [ 68 Right Dorsalis Pedis] Respiratory 31 H 46 H 42 H Rate Respiratory 47 H Rate [Bilateral Throughout] Blood Pressure 123/74 162/99 169/85 O2 Sat by Pulse 98 96 95 Oximetry 07/25/20 07/25/20 07/25/20 10:01 11:05 12:00 Temperature Pulse Rate 81 72 Pulse Rate [ Bilateral Throughout] Pulse Rate [ Right Dorsalis Pedis] Respiratory 40 H 39 H Rate Respiratory Rate [Bilateral Throughout] Blood Pressure 157/96 146/80 O2 Sat by Pulse 94 95 97 Oximetry CBC and BMP: 07/25/20 05:15 07/25/20 05:15 ABG, PT/INR, D-dimer: ABG ABG pH 7.523 (7.320-7.450) H 07/24/20 19:33 POC ABG pCO2 41.7 mmHg (32.0-48.0) 07/24/20 19:33 POC ABG pO2 76.4 mmHg (83-108) L 07/24/20 19:33 POC ABG HCO3 33.5 07/24/20 19:33 ABG O2 Saturation 95.6 (0-100) 07/24/20 19:33 PT/INR, D-dimer PT 20.1 Sec. (12.2-14.9) H 07/20/20 19:32 INR 1.72 (0.87-1.13) H 07/20/20 19:32 D-Dimer 2098.49 ng/mlDDU (0-234) H 07/20/20 21:59 Abnormal lab findings: Abnormal Labs 07/20/20 07/20/20 07/20/20 19:20 19:27 19:27 WBC 17.9 H RBC MCV 102 H MCH 33 H Plt Count Lymph % (Auto) 4.4 L Lymph # (Auto) 0.8 L Baso # (Auto) 0.3 H Seg Neutrophils % 90.0 H Lymphocytes % (Manual) Seg Neutrophils # 16.1 H Seg Neutrophils # Man Lymphocytes # (Manual) PT INR D-Dimer ABG pH POC ABG pO2 ABG Hemoglobin ABG Oxyhemoglobin ABG Sodium ABG Potassium ABG Chloride ABG Glucose Sodium 130 L Potassium 5.6 H Chloride 84.4 L Carbon Dioxide 14 L BUN 108 H Creatinine 7.7 H Glucose POC Glucose 55 L Lactic Acid Calcium 7.4 L Phosphorus Ferritin AST 306 H ALT 97 H Ammonia Lactate Dehydrogenase Total Creatine Kinase CK-MB (CK-2) C-Reactive Protein Total Protein Albumin 3.3 L Arterial Blood Glucose Arterial Blood Ionized Calcium Urine WBC (Auto) Hepatitis C Antibody 07/20/20 07/20/20 07/20/20 19:27 19:27 19:32 WBC RBC MCV MCH Plt Count Lymph % (Auto) Lymph # (Auto) Baso # (Auto) Seg Neutrophils % Lymphocytes % (Manual) Seg Neutrophils # Seg Neutrophils # Man Lymphocytes # (Manual) PT 20.1 H INR 1.72 H D-Dimer ABG pH POC ABG pO2 ABG Hemoglobin ABG Oxyhemoglobin ABG Sodium ABG Potassium ABG Chloride ABG Glucose Sodium Potassium Chloride Carbon Dioxide BUN Creatinine Glucose POC Glucose Lactic Acid 3.10 H* Calcium Phosphorus Ferritin AST ALT Ammonia Lactate Dehydrogenase Total Creatine Kinase 98329 H CK-MB (CK-2) 289.0 H C-Reactive Protein Total Protein Albumin Arterial Blood Glucose Arterial Blood Ionized Calcium Urine WBC (Auto) Hepatitis C Antibody 07/20/20 07/20/20 07/20/20 19:52 19:59 20:41 WBC RBC MCV MCH Plt Count Lymph % (Auto) Lymph # (Auto) Baso # (Auto) Seg Neutrophils % Lymphocytes % (Manual) Seg Neutrophils # Seg Neutrophils # Man Lymphocytes # (Manual) PT INR D-Dimer ABG pH 7.016 L POC ABG pO2 55.7 L ABG Hemoglobin ABG Oxyhemoglobin 81.6 L ABG Sodium 129.0 L ABG Potassium 5.0 H ABG Chloride ABG Glucose 157 H Sodium Potassium Chloride Carbon Dioxide BUN Creatinine Glucose POC Glucose 108 H Lactic Acid Calcium Phosphorus Ferritin AST ALT Ammonia Lactate Dehydrogenase Total Creatine Kinase CK-MB (CK-2) C-Reactive Protein Total Protein Albumin Arterial Blood Glucose 157 H Arterial Blood Ionized Calcium 3.9 L Urine WBC (Auto) > 182.0 H Hepatitis C Antibody 07/20/20 07/20/20 07/20/20 21:59 21:59 21:59 WBC RBC MCV MCH Plt Count Lymph % (Auto) Lymph # (Auto) Baso # (Auto) Seg Neutrophils % Lymphocytes % (Manual) Seg Neutrophils # Seg Neutrophils # Man Lymphocytes # (Manual) PT INR D-Dimer 2098.49 H ABG pH POC ABG pO2 ABG Hemoglobin ABG Oxyhemoglobin ABG Sodium ABG Potassium ABG Chloride ABG Glucose Sodium Potassium Chloride Carbon Dioxide BUN Creatinine Glucose POC Glucose Lactic Acid Calcium Phosphorus Ferritin 1648.0 H AST ALT Ammonia Lactate Dehydrogenase 732 H Total Creatine Kinase CK-MB (CK-2) C-Reactive Protein 37.90 H Total Protein Albumin Arterial Blood Glucose Arterial Blood Ionized Calcium Urine WBC (Auto) Hepatitis C Antibody 07/20/20 07/21/20 07/21/20 23:35 01:56 04:00 WBC 15.1 H RBC 3.52 L MCV 100 H MCH 33 H Plt Count Lymph % (Auto) Lymph # (Auto) Baso # (Auto) Seg Neutrophils % Lymphocytes % (Manual) 2.0 L Seg Neutrophils # Seg Neutrophils # Man 9.4 H Lymphocytes # (Manual) 0.3 L PT INR D-Dimer ABG pH POC ABG pO2 ABG Hemoglobin ABG Oxyhemoglobin ABG Sodium ABG Potassium ABG Chloride ABG Glucose Sodium Potassium 5.8 H Chloride 95.4 L Carbon Dioxide 17 L BUN 100 H Creatinine 6.8 H Glucose 61 L POC Glucose 138 H Lactic Acid Calcium 6.3 L Phosphorus Ferritin AST ALT Ammonia Lactate Dehydrogenase Total Creatine Kinase CK-MB (CK-2) C-Reactive Protein Total Protein Albumin Arterial Blood Glucose Arterial Blood Ionized Calcium Urine WBC (Auto) Hepatitis C Antibody 07/21/20 07/21/20 07/21/20 04:00 05:24 06:06 WBC RBC MCV MCH Plt Count Lymph % (Auto) Lymph # (Auto) Baso # (Auto) Seg Neutrophils % Lymphocytes % (Manual) Seg Neutrophils # Seg Neutrophils # Man Lymphocytes # (Manual) PT INR D-Dimer ABG pH POC ABG pO2 ABG Hemoglobin ABG Oxyhemoglobin ABG Sodium ABG Potassium ABG Chloride ABG Glucose Sodium Potassium 6.1 H* Chloride 97.2 L Carbon Dioxide 21 L BUN 104 H Creatinine 6.7 H Glucose POC Glucose 121 H 124 H Lactic Acid Calcium 6.5 L Phosphorus Ferritin AST ALT Ammonia Lactate Dehydrogenase Total Creatine Kinase CK-MB (CK-2) C-Reactive Protein Total Protein Albumin Arterial Blood Glucose Arterial Blood Ionized Calcium Urine WBC (Auto) Hepatitis C Antibody 07/21/20 07/21/20 07/21/20 06:58 07:58 08:20 WBC RBC MCV MCH Plt Count Lymph % (Auto) Lymph # (Auto) Baso # (Auto) Seg Neutrophils % Lymphocytes % (Manual) Seg Neutrophils # Seg Neutrophils # Man Lymphocytes # (Manual) PT INR D-Dimer ABG pH POC ABG pO2 ABG Hemoglobin ABG Oxyhemoglobin ABG Sodium ABG Potassium ABG Chloride ABG Glucose Sodium Potassium Chloride Carbon Dioxide BUN Creatinine Glucose POC Glucose 128 H 133 H Lactic Acid Calcium Phosphorus Ferritin AST ALT Ammonia Lactate Dehydrogenase Total Creatine Kinase 35433 H CK-MB (CK-2) C-Reactive Protein Total Protein Albumin Arterial Blood Glucose Arterial Blood Ionized Calcium Urine WBC (Auto) Hepatitis C Antibody 07/21/20 07/21/20 07/21/20 09:15 09:31 10:09 WBC RBC MCV MCH Plt Count Lymph % (Auto) Lymph # (Auto) Baso # (Auto) Seg Neutrophils % Lymphocytes % (Manual) Seg Neutrophils # Seg Neutrophils # Man Lymphocytes # (Manual) PT INR D-Dimer ABG pH 7.239 L POC ABG pO2 70.1 L ABG Hemoglobin 11.4 L ABG Oxyhemoglobin 92.6 L ABG Sodium 135.2 L ABG Potassium 5.1 H ABG Chloride ABG Glucose 147 H Sodium Potassium Chloride Carbon Dioxide BUN Creatinine Glucose POC Glucose 129 H Lactic Acid Calcium Phosphorus Ferritin AST ALT Ammonia 24.0 L Lactate Dehydrogenase Total Creatine Kinase CK-MB (CK-2) C-Reactive Protein Total Protein Albumin Arterial Blood Glucose 147 H Arterial Blood Ionized Calcium 3.4 L Urine WBC (Auto) Hepatitis C Antibody 07/21/20 07/21/20 07/21/20 12:55 14:19 17:20 WBC RBC MCV MCH Plt Count Lymph % (Auto) Lymph # (Auto) Baso # (Auto) Seg Neutrophils % Lymphocytes % (Manual) Seg Neutrophils # Seg Neutrophils # Man Lymphocytes # (Manual) PT INR D-Dimer ABG pH POC ABG pO2 ABG Hemoglobin ABG Oxyhemoglobin ABG Sodium ABG Potassium ABG Chloride ABG Glucose Sodium Potassium Chloride Carbon Dioxide 20 L BUN 88 H Creatinine 4.0 H Glucose 166 H POC Glucose 157 H 172 H Lactic Acid Calcium 6.0 L Phosphorus Ferritin AST ALT Ammonia Lactate Dehydrogenase Total Creatine Kinase CK-MB (CK-2) C-Reactive Protein Total Protein Albumin Arterial Blood Glucose Arterial Blood Ionized Calcium Urine WBC (Auto) Hepatitis C Antibody 07/21/20 07/21/20 07/21/20 17:30 20:59 23:59 WBC RBC MCV MCH Plt Count Lymph % (Auto) Lymph # (Auto) Baso # (Auto) Seg Neutrophils % Lymphocytes % (Manual) Seg Neutrophils # Seg Neutrophils # Man Lymphocytes # (Manual) PT INR D-Dimer ABG pH 7.174 L POC ABG pO2 69.3 L ABG Hemoglobin 11.9 L ABG Oxyhemoglobin 91.0 L ABG Sodium 134.0 L ABG Potassium 5.4 H ABG Chloride ABG Glucose 60 L Sodium Potassium Chloride 110.0 H Carbon Dioxide 21 L BUN 72 H Creatinine 2.7 H Glucose 175 H POC Glucose 122 H Lactic Acid Calcium 5.6 L* Phosphorus Ferritin AST ALT Ammonia Lactate Dehydrogenase Total Creatine Kinase CK-MB (CK-2) C-Reactive Protein Total Protein Albumin Arterial Blood Glucose 60 L Arterial Blood Ionized Calcium 3.6 L Urine WBC (Auto) Hepatitis C Antibody 07/21/20 07/22/20 07/22/20 Unknown 02:00 02:03 WBC RBC MCV MCH Plt Count Lymph % (Auto) Lymph # (Auto) Baso # (Auto) Seg Neutrophils % Lymphocytes % (Manual) Seg Neutrophils # Seg Neutrophils # Man Lymphocytes # (Manual) PT INR D-Dimer ABG pH POC ABG pO2 ABG Hemoglobin ABG Oxyhemoglobin ABG Sodium ABG Potassium ABG Chloride ABG Glucose Sodium 146 H Potassium Chloride 109.9 H Carbon Dioxide BUN 56 H Creatinine 1.6 H Glucose 125 H POC Glucose 113 H Lactic Acid Calcium 6.5 L D Phosphorus Ferritin AST ALT Ammonia Lactate Dehydrogenase Total Creatine Kinase CK-MB (CK-2) C-Reactive Protein Total Protein Albumin Arterial Blood Glucose Arterial Blood Ionized Calcium Urine WBC (Auto) 28.0 H Hepatitis C Antibody 07/22/20 07/22/20 07/22/20 05:00 06:27 09:44 WBC RBC 3.11 L MCV 99 H MCH 34 H Plt Count 86 L Lymph % (Auto) Lymph # (Auto) Baso # (Auto) Seg Neutrophils % Lymphocytes % (Manual) Seg Neutrophils # Seg Neutrophils # Man Lymphocytes # (Manual) PT INR D-Dimer ABG pH POC ABG pO2 ABG Hemoglobin ABG Oxyhemoglobin ABG Sodium ABG Potassium ABG Chloride ABG Glucose Sodium 148 H Potassium Chloride 111.3 H Carbon Dioxide BUN 53 H Creatinine 1.4 H Glucose 135 H POC Glucose 122 H Lactic Acid Calcium 7.2 L Phosphorus Ferritin AST ALT Ammonia Lactate Dehydrogenase Total Creatine Kinase CK-MB (CK-2) C-Reactive Protein Total Protein Albumin Arterial Blood Glucose Arterial Blood Ionized Calcium Urine WBC (Auto) Hepatitis C Antibody 07/22/20 07/22/20 07/22/20 11:00 11:56 21:18 WBC RBC MCV MCH Plt Count Lymph % (Auto) Lymph # (Auto) Baso # (Auto) Seg Neutrophils % Lymphocytes % (Manual) Seg Neutrophils # Seg Neutrophils # Man Lymphocytes # (Manual) PT INR D-Dimer ABG pH POC ABG pO2 73.5 L ABG Hemoglobin 11.1 L ABG Oxyhemoglobin ABG Sodium 145.8 H ABG Potassium ABG Chloride 114.0 H ABG Glucose 125 H Sodium Potassium Chloride Carbon Dioxide BUN Creatinine Glucose POC Glucose 126 H 126 H Lactic Acid Calcium Phosphorus Ferritin AST ALT Ammonia Lactate Dehydrogenase Total Creatine Kinase CK-MB (CK-2) C-Reactive Protein Total Protein Albumin Arterial Blood Glucose 125 H Arterial Blood Ionized Calcium 4.2 L Urine WBC (Auto) Hepatitis C Antibody 07/23/20 07/23/20 07/23/20 01:43 04:48 04:48 WBC 13.2 H RBC 3.47 L MCV 99 H MCH 33 H Plt Count 98 L Lymph % (Auto) Lymph # (Auto) Baso # (Auto) Seg Neutrophils % Lymphocytes % (Manual) Seg Neutrophils # Seg Neutrophils # Man Lymphocytes # (Manual) PT INR D-Dimer ABG pH POC ABG pO2 ABG Hemoglobin ABG Oxyhemoglobin ABG Sodium ABG Potassium ABG Chloride ABG Glucose Sodium 155 H Potassium 3.1 L D Chloride 112.2 H Carbon Dioxide BUN 34 H Creatinine Glucose 143 H POC Glucose 146 H Lactic Acid Calcium 7.8 L Phosphorus Ferritin AST ALT Ammonia Lactate Dehydrogenase Total Creatine Kinase CK-MB (CK-2) C-Reactive Protein Total Protein Albumin Arterial Blood Glucose Arterial Blood Ionized Calcium Urine WBC (Auto) Hepatitis C Antibody 07/23/20 07/23/20 07/23/20 05:32 11:49 14:33 WBC RBC MCV MCH Plt Count Lymph % (Auto) Lymph # (Auto) Baso # (Auto) Seg Neutrophils % Lymphocytes % (Manual) Seg Neutrophils # Seg Neutrophils # Man Lymphocytes # (Manual) PT INR D-Dimer ABG pH POC ABG pO2 ABG Hemoglobin ABG Oxyhemoglobin ABG Sodium ABG Potassium ABG Chloride ABG Glucose Sodium 157 H Potassium 3.5 L Chloride 115.0 H Carbon Dioxide 32 H BUN 34 H Creatinine Glucose 119 H POC Glucose 149 H 112 H Lactic Acid Calcium Phosphorus Ferritin AST ALT Ammonia Lactate Dehydrogenase Total Creatine Kinase CK-MB (CK-2) C-Reactive Protein Total Protein Albumin Arterial Blood Glucose Arterial Blood Ionized Calcium Urine WBC (Auto) Hepatitis C Antibody 07/23/20 07/23/20 07/23/20 17:33 17:33 17:33 WBC RBC MCV MCH Plt Count Lymph % (Auto) Lymph # (Auto) Baso # (Auto) Seg Neutrophils % Lymphocytes % (Manual) Seg Neutrophils # Seg Neutrophils # Man Lymphocytes # (Manual) PT INR D-Dimer ABG pH POC ABG pO2 ABG Hemoglobin ABG Oxyhemoglobin ABG Sodium ABG Potassium ABG Chloride ABG Glucose Sodium Potassium Chloride Carbon Dioxide BUN Creatinine Glucose POC Glucose Lactic Acid Calcium Phosphorus 1.80 L Ferritin AST 158 H ALT 96 H Ammonia Lactate Dehydrogenase Total Creatine Kinase CK-MB (CK-2) C-Reactive Protein Total Protein 6.2 L Albumin 2.9 L Arterial Blood Glucose Arterial Blood Ionized Calcium Urine WBC (Auto) Hepatitis C Antibody Reactive A 07/24/20 07/24/20 07/24/20 02:17 05:20 05:29 WBC RBC MCV MCH Plt Count Lymph % (Auto) Lymph # (Auto) Baso # (Auto) Seg Neutrophils % Lymphocytes % (Manual) Seg Neutrophils # Seg Neutrophils # Man Lymphocytes # (Manual) PT INR D-Dimer ABG pH POC ABG pO2 ABG Hemoglobin ABG Oxyhemoglobin ABG Sodium ABG Potassium ABG Chloride ABG Glucose Sodium 163 H* Potassium Chloride 118.6 H Carbon Dioxide BUN 33 H Creatinine Glucose 118 H POC Glucose 106 H 111 H Lactic Acid Calcium 7.9 L Phosphorus Ferritin AST ALT Ammonia Lactate Dehydrogenase Total Creatine Kinase CK-MB (CK-2) C-Reactive Protein Total Protein Albumin Arterial Blood Glucose Arterial Blood Ionized Calcium Urine WBC (Auto) Hepatitis C Antibody 07/24/20 07/24/20 07/24/20 08:00 11:52 14:43 WBC RBC MCV MCH Plt Count Lymph % (Auto) Lymph # (Auto) Baso # (Auto) Seg Neutrophils % Lymphocytes % (Manual) Seg Neutrophils # Seg Neutrophils # Man Lymphocytes # (Manual) PT INR D-Dimer ABG pH POC ABG pO2 ABG Hemoglobin ABG Oxyhemoglobin ABG Sodium ABG Potassium ABG Chloride ABG Glucose Sodium 155 H Potassium 3.5 L Chloride 112.7 H Carbon Dioxide 32 H BUN 28 H Creatinine Glucose 125 H POC Glucose 109 H 118 H Lactic Acid Calcium 8.2 L Phosphorus Ferritin AST ALT Ammonia Lactate Dehydrogenase Total Creatine Kinase CK-MB (CK-2) C-Reactive Protein Total Protein Albumin Arterial Blood Glucose Arterial Blood Ionized Calcium Urine WBC (Auto) Hepatitis C Antibody 07/24/20 07/24/20 07/24/20 16:52 19:33 23:02 WBC RBC MCV MCH Plt Count Lymph % (Auto) Lymph # (Auto) Baso # (Auto) Seg Neutrophils % Lymphocytes % (Manual) Seg Neutrophils # Seg Neutrophils # Man Lymphocytes # (Manual) PT INR D-Dimer ABG pH 7.523 H POC ABG pO2 76.4 L ABG Hemoglobin 10.3 L ABG Oxyhemoglobin ABG Sodium 151.2 H ABG Potassium 2.4 L ABG Chloride 111.0 H ABG Glucose 125 H Sodium Potassium Chloride Carbon Dioxide BUN Creatinine Glucose POC Glucose 111 H 127 H Lactic Acid Calcium Phosphorus Ferritin AST ALT Ammonia Lactate Dehydrogenase Total Creatine Kinase CK-MB (CK-2) C-Reactive Protein Total Protein Albumin Arterial Blood Glucose 125 H Arterial Blood Ionized Calcium 4.3 L Urine WBC (Auto) Hepatitis C Antibody 07/25/20 07/25/20 07/25/20 02:12 05:15 05:15 WBC 12.0 H RBC 3.11 L MCV 99 H MCH 33 H Plt Count 77 L Lymph % (Auto) 9.5 L Lymph # (Auto) 1.1 L Baso # (Auto) Seg Neutrophils % 88.2 H Lymphocytes % (Manual) Seg Neutrophils # 10.6 H Seg Neutrophils # Man Lymphocytes # (Manual) PT INR D-Dimer ABG pH POC ABG pO2 ABG Hemoglobin ABG Oxyhemoglobin ABG Sodium ABG Potassium ABG Chloride ABG Glucose Sodium 152 H Potassium 2.6 L* D Chloride 109.5 H Carbon Dioxide 34 H BUN 21 H Creatinine 0.5 L Glucose 124 H POC Glucose 124 H Lactic Acid Calcium 7.7 L Phosphorus Ferritin AST ALT Ammonia Lactate Dehydrogenase Total Creatine Kinase CK-MB (CK-2) C-Reactive Protein Total Protein Albumin Arterial Blood Glucose Arterial Blood Ionized Calcium Urine WBC (Auto) Hepatitis C Antibody 07/25/20 05:42 WBC RBC MCV MCH Plt Count Lymph % (Auto) Lymph # (Auto) Baso # (Auto) Seg Neutrophils % Lymphocytes % (Manual) Seg Neutrophils # Seg Neutrophils # Man Lymphocytes # (Manual) PT INR D-Dimer ABG pH POC ABG pO2 ABG Hemoglobin ABG Oxyhemoglobin ABG Sodium ABG Potassium ABG Chloride ABG Glucose Sodium Potassium Chloride Carbon Dioxide BUN Creatinine Glucose POC Glucose 108 H Lactic Acid Calcium Phosphorus Ferritin AST ALT Ammonia Lactate Dehydrogenase Total Creatine Kinase CK-MB (CK-2) C-Reactive Protein Total Protein Albumin Arterial Blood Glucose Arterial Blood Ionized Calcium Urine WBC (Auto) Hepatitis C Antibody
--- NOTE | 2020-07-25 15:08 | Progress Note ---
Assessment and Plan Impression: * Nonoliguric DOREEN secondary to multifactorial etiologies: prerenal component due to volume depletion vs ATN (sepsis) * Acute hypoxic respiratory failure * Sepsis * Klebsiella UTI * Acute encephelopathy * Uremia * Hypernatremia: free water deficit * Hyperkalemia->hypokalemia now: likely nutritional * Metabolic Alkalosis: likely contracted Plan: * Renal function improved with volume resuscitation. Peaked with creatinine 7.7->0.5 this AM over past week. No acute indication for renal replacement therapy at this time. Continue conservative management * Continue IVF D5W, will add on K given hypokalemia * Will check urine K/creatinine if hypokalemia not improving despite repletion * Check urine chloride if alkalosis not improving * ?Possible withdrawal - note order for Ativan prn, on CIWA protocol * Abx per primary team * Pressors prn to maintain MAP>65 * Avoid potential nephrotoxins * Dose medications for renal function * AM labs Subjective Date of service: 07/25/20 Interval history: No acute issues noted, on Bipap Objective - Exam Narrative Exam: General appearance: well-developed, other (Bipap in place) EENT: ATNC Respiratory: Present: [facility] Cardiology: regular, S1S2 Gastrointestinal: normal, no tenderness, no distended Integumentary: no rash, warm and dry Neurologic: other (agitated) Musculoskeletal: other (no edema) - Vital Signs Vital signs: Vital Signs - 12hr 07/25/20 07/25/20 07/25/20 03:01 04:00 04:10 Temperature 98.2 F Pulse Rate 70 71 71 Pulse Rate [ Bilateral Throughout] Pulse Rate [ Right Dorsalis Pedis] Respiratory 27 H 28 H 27 H Rate Respiratory Rate [Bilateral Throughout] Blood Pressure 113/64 114/71 114/71 O2 Sat by Pulse 99 99 98 Oximetry 07/25/20 07/25/20 07/25/20 05:00 06:00 07:00 Temperature Pulse Rate 69 67 81 Pulse Rate [ Bilateral Throughout] Pulse Rate [ Right Dorsalis Pedis] Respiratory 28 H 26 H 31 H Rate Respiratory Rate [Bilateral Throughout] Blood Pressure 140/76 140/74 144/89 O2 Sat by Pulse 98 98 96 Oximetry 07/25/20 07/25/20 07/25/20 08:00 09:00 09:41 Temperature 99 F Pulse Rate 69 90 85 Pulse Rate [ 83 Bilateral Throughout] Pulse Rate [ 68 Right Dorsalis Pedis] Respiratory 31 H 46 H 42 H Rate Respiratory 47 H Rate [Bilateral Throughout] Blood Pressure 123/74 162/99 169/85 O2 Sat by Pulse 98 96 95 Oximetry 07/25/20 07/25/20 07/25/20 10:01 11:05 12:00 Temperature Pulse Rate 81 109 H Pulse Rate [ Bilateral Throughout] Pulse Rate [ 68 Right Dorsalis Pedis] Respiratory 40 H 24 Rate Respiratory Rate [Bilateral Throughout] Blood Pressure 157/96 146/80 O2 Sat by Pulse 94 95 96 Oximetry 07/25/20 07/25/20 13:00 14:00 Temperature Pulse Rate 72 79 Pulse Rate [ Bilateral Throughout] Pulse Rate [ Right Dorsalis Pedis] Respiratory 32 H 37 H Rate Respiratory Rate [Bilateral Throughout] Blood Pressure 153/74 159/91 O2 Sat by Pulse 99 99 Oximetry - Lab 07/25/20 05:15 07/25/20 14:35 Most recent lab results ABG pH 7.523 (7.320-7.450) H 07/24/20 19:33 ABG O2 Saturation 95.6 (0-100) 07/24/20 19:33 Calcium 7.7 mg/dL (8.4-10.2) L 07/25/20 05:15 Phosphorus 1.80 mg/dL (2.5-4.5) L 07/23/20 17:33 Magnesium 1.70 mg/dL (1.7-2.3) 07/25/20 05:15 Urine Creatinine < 4.2 mg/dL (0.1-20.0) 07/21/20 Unknown Urine Sodium 10 mmol/L 07/21/20 Unknown Medications & Allergies - Medications Allergies/Adverse Reactions: Allergies Iodine and Iodide Containing Produc Adverse Reaction (Verified 10/26/18 10:10) Rash Home Medications: Home Medications Medication Instructions Recorded Confirmed Last Taken Type Ondansetron [Zofran TAB] 4 mg PO Q8HR PRN #15 tablet 07/17/17 Unknown Rx Ibuprofen [Motrin 600 MG tab] 600 mg PO Q8H PRN #30 tablet 01/18/18 Unknown Rx Sulfamethoxazole/Trimethoprim 1 each PO BID 10 Days #20 tablet 01/18/18 Unknown Rx [Bactrim DS TAB] cephALEXin [Keflex] 500 mg PO Q12HR #20 capsule 01/18/18 Unknown Rx Famotidine [Pepcid] 20 mg PO BID #10 tablet 05/17/18 Unknown Rx Mag Hydrox/Aluminum Hyd/Simeth 15 ml PO QID #1 oral.susp 05/17/18 Unknown Rx [Maalox Advanced Suspension] Ondansetron [Zofran ODT TAB] 8 mg PO Q12HR #20 tab.rapdis 05/17/18 Unknown Rx Acetaminophen/Codeine [Tylenol 1 tab PO Q6H PRN #12 tab 10/26/18 Unknown Rx /Codeine # 3 tab] Clindamycin [Clindamycin CAP] 300 mg PO Q8H #21 cap 10/26/18 Unknown Rx Esomeprazole Magnesium [NexIUM] 40 mg PO QDAY 20 Days #20 06/04/19 Unknown Rx capsule. ALPRAZolam [Xanax TAB] 2 mg PO Q8H 07/23/20 07/23/20 Unknown History Carisoprodol [Soma] 350 mg PO Q6H 07/23/20 07/23/20 Unknown History Ezetimibe [Zetia] 10 mg PO DAILY 07/23/20 07/23/20 Unknown History Gabapentin [Neurontin] 600 mg PO Q6H 07/23/20 07/23/20 Unknown History HYDROcodone/APAP 5-325 1 tab Q6H 07/23/20 07/23/20 Unknown History SUMAtriptan SUCCINATE [Imitrex] 100 mg PO Q2H PRN 07/23/20 07/23/20 Unknown History Active Medications: Generic Name Dose Route Start Last Admin Trade Name Freq PRN Reason Stop Dose Admin Acetaminophen 650 mg 07/20/20 22:51 Acetaminophen 325 Mg/10.15 Ml Oral Liqd Unit Dose FEEDTUBE Q6H PRN Pain MILD(1-3)/Fever >100.5/HESS Albuterol/Ipratropium 1 ampul 07/20/20 23:00 07/25/20 14:48 Ipratropium/Albuterol Sulfate 3 Ml Ampul.Neb IH 1 ampul Q6HRT HONEY Administration Alprazolam 2 mg 07/24/20 22:00 07/25/20 13:00 Alprazolam 1 Mg Tab PO 2 mg Q8HR HONEY Administration Lipase/Protease/Amylase 1 each 07/24/20 18:26 Lipase 10,500/Protease 25,000/Amylase 43,750 (Units) Dr [place] FEEDTUBE PRN PRN For Clogged Feeding Tube Famotidine 20 mg 07/20/20 23:00 07/25/20 08:59 Famotidine 20 Mg/2 Ml Inj IV 20 mg QAM HONEY Administration Haloperidol Lactate 5 mg 07/22/20 12:00 07/25/20 12:56 Haloperidol Lactate 5 Mg/1 Ml Inj IV Not Given Q6H HONEY Haloperidol Lactate 5 mg 07/23/20 17:24 Haloperidol Lactate 5 Mg/1 Ml Inj IV Q1HR PRN Unrespon. to mult. doses BZD's Hydralazine HCl 10 mg 07/22/20 23:25 07/24/20 15:02 Hydralazine 20 Mg/1 Ml Inj IV 10 mg Q6H PRN Administration Hypertension Dextrose 1,000 mls @ 75 mls/hr 07/23/20 13:00 07/25/20 11:06 D5w IV 75 mls/hr DIRECT HONEY Infusion Folic Acid 1 mg/ Sodium 50.2 mls @ 200.8 mls/hr 07/23/20 18:00 07/25/20 10:11 Chloride IV Infused QDAY HONEY Infusion Thiamine HCl 100 mg/ Sodium 51 mls @ 100 mls/hr 07/23/20 18:00 07/25/20 10:11 Chloride IV Infused QDAY HONEY Infusion Ceftriaxone Sodium 1 gm in 50 mls @ 100 mls/hr 07/24/20 10:00 07/25/20 10:11 Rocephin/Ns 1 Gm/50 Ml IV 07/27/20 10:29 Infused Q24H HONEY Infusion Protocol Magnesium Sulfate 4 gm in 100 mls @ 25 mls/hr 07/25/20 11:00 07/25/20 12:55 Magnesium Sulfate 4gm/100ml IV 07/25/20 14:59 25 mls/hr ONCE ONE Administration Lorazepam 2 mg 07/23/20 17:24 07/25/20 06:30 Lorazepam 2 Mg/Ml Vial IV 2 mg Q1HR PRN Administration KEILYRj 8-15 Lorazepam 4 mg 07/23/20 17:24 07/25/20 09:15 Lorazepam 2 Mg/Ml Vial IV 4 mg Q1HR PRN Administration KEILY-Ar 16-25 Lorazepam 4 mg 07/23/20 17:24 Lorazepam 2 Mg/Ml Vial IV Q15MIN PRN CIWA-Ar >25 Metoclopramide HCl 5 mg 07/20/20 22:51 Metoclopramide 10 Mg/2 Ml Inj IV Q6H PRN Nausea And Vomiting Simple Syrup 15 ml 07/24/20 18:26 Simple Syrup 15 Ml FEEDTUBE PRN PRN Hypoglycemia Simple Syrup 30 ml 07/24/20 18:26 Simple Syrup 15 Ml FEEDTUBE PRN PRN Hypoglycemia Sodium Bicarbonate 325 mg 07/24/20 18:26 Sodium Bicarbonate 325 Mg Tab FEEDTUBE PRN PRN For Clogged Feeding Tube Sodium Chloride 10 ml 07/21/20 10:00 07/25/20 09:24 Sodium Chloride 0.9% 10 Ml Flush Syringe IV 10 ml BID HONEY Administration Sodium Chloride 10 ml 07/20/20 22:51 07/25/20 05:01 Sodium Chloride 0.9% 10 Ml Flush Syringe IV 10 ml PRN PRN Administration LINE FLUSH
[2020-07-25 15:19] LABS: Blood Urea Nitrogen 17 mg/dL (7-17); Calcium 7.7 mg/dL (8.4-10.2); Hemolysis Index 36
[2020-07-25 15:21] LABS: BUN/Creatinine Ratio 34
[2020-07-25] MEDS ORDERED: POTASSIUM PHOSPHATE 30 MMOL in SODIUM CHLORIDE 0.9% 500 ML 500 ML IV ONE (16:00)
--- NOTE | 2020-07-25 16:26 | Progress Note ---
<MARIELLA MURRELL - Last Filed: 07/25/20 16:52> Assessment and Plan Assessment and plan: -Antibiotic therapy -Trend CBC, CMP -Trend CK -Pulmonary hygiene -ABGs as needed -Recheck magnesium DVT/GI prophylaxis: Heparin subcu, SCDs to bilateral lower extremities while in bed, PPI Dispo: ICU CODE STATUS: Full code The high probability of a clinically significant, sudden or life threatening deterioration of the [multi] system(s) required my full and direct attention, intervention and personal management. The aggregate critical care time was [35] minutes. This time is in addition to time spent performing reported procedures but includes the following: [x] Data Review and interpretation [x] Patient assessment and monitoring of vital signs [x] Documentation [x] Medication orders and management History Interval history: This is a 65-year-old female with hepatitis C, migraines and hypertension who had presented to the emergency department on 07/21 with altered mental status after being found on the floor by family members. Upon evaluation in the emergency department patient was found to be hypothermic and hypotensive with leukocytosis and acute kidney failure consistent with sepsis. Patient also had elevated D- dimer, metabolic encephalopathy, lactic acidosis, hyperkalemia and rhabdomyolysis. Patient was admitted to the hospital service with sepsis, UTI, DOREEN, rhabdomyolysis, acute respiratory failure, metabolic acidosis, acute metabolic encephalopathy. Nephrology, infectious disease and critical care consulted. Sepsis Urinary tract infection with Klebsiella pneumonia Rhabdomyolysis Hyperchloremia Leukocytosis Acute respiratory failure Acute metabolic encephalopathy Hypertension Hepatitis C Moderate pulmonary hypertension Thrombocytopenia 07/21: Patient received a total of 4 L normal saline, was started on vasopressin and remains on BiPAP. Patient was on Levophed and D5 normal saline and a bicarbonate drip. D5 normal saline was discontinued. We will obtain a p.m. BMP and serial BMPs. Patient was contacted and the patient is now on AND/DNR. 07/22: Patient received a total of 12 L IV bolus and has been weaned off of Levophed and vasopressin. Patient's kidney function has improved drastically. Patient has been started on scheduled Haldol and we obtained a baseline ECG.she was started on maintenance fluid overnight which was stopped today. Echocardiogram shows moderate pulmonary hypertension. [facility] would like to obtain a CT chest when more stable. RT is titrating BiPAP FiO2 as tolerated and we will assess for nutrition once off BiPAP.Patient now has hypernatremia, hyperchloremia and her BUN/creatinine has decreased to 53/1.4. 07/23/2020; patient is still on BiPAP, agitated and confused. Kidney function improved. Patient was on Haldol and Geodon which did not help. Put the patient on Ativan as needed this morning. I have a long discussion with her yesterday and she does not want any heroic measures to be done. Does not want NG tube to be placed. Patient is DNR/DNI. Patient has UTI and on cefepime. Patient prognosis is guarded. Patient has hypernatremia and placed on D5 0.2% normal saline but no improvement. Hypokalemia, repleted according to electrolyte protocol. Patient prognosis is very poor. Patient is gasping for air. 07/24/2020; patient is on BiPAP, agitated and confused. Sodium is trending up and 163 this morning despite the patient is on D5 W at 125. Family declined NG tube. Patient's family states patient is not alcoholic. UDS is positive for opioid. Patient has delirium and supportive care. On alcohol withdrawal protocol. Patient has UTI and continue with cefepime. Urine culture noted. 07/25: This morning the time my examination patient is on BiPAP therapy and has NG tube to tube feedings. Patient has hypomagnesemic which was repleted and severely hypokalemic which was also repleted. Patient has hypernatremia and her leukocytosis has improved. Urine culture speciated to Klebsiella and antibiotic regimen has been modified per ID. Hospitalist Physical - Constitutional Vitals: Temp Pulse Resp BP Pulse Ox 99 F 68 24 151/80 96 07/25/20 08:00 07/25/20 16:00 07/25/20 16:00 07/25/20 16:00 07/25/20 16:00 General appearance: Present: no acute distress - EENT Eyes: Present: PERRL ENT: clear oral mucosa - Neck Neck: Present: supple - Respiratory Respiratory effort: normal Respiratory: bilateral: diminished - Cardiovascular Rhythm: regular Heart Sounds: Present: S1 & S2. Absent: systolic murmur, diastolic murmur - Extremities Extremities: no ischemia, pulses intact, pulses symmetrical, No edema, normal temperature, normal color, Full ROM Peripheral Pulses: within normal limits - Abdominal General gastrointestinal: soft, non-tender, non-distended, normal bowel sounds - Integumentary Integumentary: Present: warm, dry - Psychiatric Psychiatric: agitated - Neurologic Neurologic: moves all extremities - Allied Health Allied health notes reviewed: nursing HEART Score - HEART Score Troponin: Troponin T 0.026 ng/mL (0.00-0.029) 07/20/20 19:27 Results - Labs CBC & Chem 7: 07/25/20 05:15 07/25/20 14:35 Labs: Laboratory Last Values WBC 12.0 K/mm3 (4.5-11.0) H 07/25/20 05:15 RBC 3.11 M/mm3 (3.65-5.03) L 07/25/20 05:15 Hgb 10.4 gm/dl (10.1-14.3) 07/25/20 05:15 Hct 30.9 % (30.3-42.9) 07/25/20 05:15 MCV 99 fl (79-97) H 07/25/20 05:15 MCH 33 pg (28-32) H 07/25/20 05:15 MCHC 34 % (30-34) 07/25/20 05:15 RDW 13.5 % (13.2-15.2) 07/25/20 05:15 Plt Count 77 K/mm3 (140-440) L 07/25/20 05:15 Lymph % (Auto) 9.5 % (13.4-35.0) L 07/25/20 05:15 [place] % (Auto) 2.0 % (0.0-7.3) 07/25/20 05:15 Eos % (Auto) 0.2 % (0.0-4.3) 07/25/20 05:15 Baso % (Auto) 0.1 % (0.0-1.8) 07/25/20 05:15 Lymph # (Auto) 1.1 K/mm3 (1.2-5.4) L 07/25/20 05:15 [place] # (Auto) 0.2 K/mm3 (0.0-0.8) 07/25/20 05:15 Eos # (Auto) 0.0 K/mm3 (0.0-0.4) 07/25/20 05:15 Baso # (Auto) 0.0 K/mm3 (0.0-0.1) 07/25/20 05:15 Add Manual Diff Complete 07/21/20 04:00 Total Counted 100 07/21/20 04:00 Seg Neutrophils % 88.2 % (40.0-70.0) H 07/25/20 05:15 Seg Neuts % (Manual) 62.0 % (40.0-70.0) 07/21/20 04:00 Band Neutrophils % 32.0 % 07/21/20 04:00 Lymphocytes % (Manual) 2.0 % (13.4-35.0) L 07/21/20 04:00 Monocytes % (Manual) 4.0 % (0.0-7.3) 07/21/20 04:00 Nucleated RBC % Not Reportable 07/21/20 04:00 Seg Neutrophils # 10.6 K/mm3 (1.8-7.7) H 07/25/20 05:15 Seg Neutrophils # Man 9.4 K/mm3 (1.8-7.7) H 07/21/20 04:00 Band Neutrophils # 4.8 K/mm3 07/21/20 04:00 Lymphocytes # (Manual) 0.3 K/mm3 (1.2-5.4) L 07/21/20 04:00 Abs React Lymphs (Man) 0.0 K/mm3 07/21/20 04:00 Monocytes # (Manual) 0.6 K/mm3 (0.0-0.8) 07/21/20 04:00 Eosinophils # (Manual) 0.0 K/mm3 (0.0-0.4) 07/21/20 04:00 Basophils # (Manual) 0.0 K/mm3 (0.0-0.1) 07/21/20 04:00 Metamyelocytes # 0.0 K/mm3 07/21/20 04:00 Myelocytes # 0.0 K/mm3 07/21/20 04:00 Promyelocytes # 0.0 K/mm3 07/21/20 04:00 Blast Cells # 0.0 K/mm3 07/21/20 04:00 WBC Morphology Not Reportable 07/21/20 04:00 Hypersegmented Neuts Not Reportable 07/21/20 04:00 Hyposegmented Neuts Not Reportable 07/21/20 04:00 Hypogranular Neuts Not Reportable 07/21/20 04:00 Smudge Cells Not Reportable 07/21/20 04:00 Toxic Granulation Not Reportable 07/21/20 04:00 Toxic Vacuolation Not Reportable 07/21/20 04:00 Dohle Bodies Not Reportable 07/21/20 04:00 Pelger-Huet Anomaly Not Reportable 07/21/20 04:00 Elia Rods Not Reportable 07/21/20 04:00 Platelet Estimate Consistent w auto 07/21/20 04:00 Clumped Platelets Not Reportable 07/21/20 04:00 Plt Clumps, EDTA Not Reportable 07/21/20 04:00 Large Platelets Not Reportable 07/21/20 04:00 Giant Platelets Not Reportable 07/21/20 04:00 Platelet Satelliting Not Reportable 07/21/20 04:00 Plt Morphology Comment Not Reportable 07/21/20 04:00 RBC Morphology Not Reportable 07/21/20 04:00 Dimorphic RBCs Not Reportable 07/21/20 04:00 Polychromasia Not Reportable 07/21/20 04:00 Hypochromasia Not Reportable 07/21/20 04:00 Poikilocytosis Not Reportable 07/21/20 04:00 Anisocytosis Not Reportable 07/21/20 04:00 Microcytosis Not Reportable 07/21/20 04:00 Macrocytosis Not Reportable 07/21/20 04:00 Spherocytes Not Reportable 07/21/20 04:00 Pappenheimer Bodies Not Reportable 07/21/20 04:00 Sickle Cells Not Reportable 07/21/20 04:00 Target Cells Not Reportable 07/21/20 04:00 Tear Drop Cells Not Reportable 07/21/20 04:00 Ovalocytes Not Reportable 07/21/20 04:00 Helmet Cells Not Reportable 07/21/20 04:00 [place] Bodies Not Reportable 07/21/20 04:00 [place] Rings Not Reportable 07/21/20 04:00 [place]ri Cells 1+ 07/21/20 04:00 Bite Cells Not Reportable 07/21/20 04:00 Crenated Cell Not Reportable 07/21/20 04:00 Elliptocytes Not Reportable 07/21/20 04:00 Acanthocytes (Spur) Not Reportable 07/21/20 04:00 Rouleaux Not Reportable 07/21/20 04:00 Hemoglobin C Crystals Not Reportable 07/21/20 04:00 Schistocytes Not Reportable 07/21/20 04:00 Malaria parasites Not Reportable 07/21/20 04:00 Junior Bodies Not Reportable 07/21/20 04:00 Hem Pathologist Commnt No 07/21/20 04:00 PT 20.1 Sec. (12.2-14.9) H 07/20/20 19:32 INR 1.72 (0.87-1.13) H 07/20/20 19:32 APTT 33.7 Sec. (24.2-36.6) 07/20/20 19:32 D-Dimer 2098.49 ng/mlDDU (0-234) H 07/20/20 21:59 ABG pH 7.523 (7.320-7.450) H 07/24/20 19:33 POC ABG pCO2 41.7 mmHg (32.0-48.0) 07/24/20 19:33 POC ABG pO2 76.4 mmHg (83-108) L 07/24/20 19:33 POC ABG HCO3 33.5 07/24/20 19:33 ABG O2 Saturation 95.6 (0-100) 07/24/20 19:33 POC ABG Base Excess 9.8 07/24/20 19:33 ABG Hemoglobin 10.3 (12.0-17.5) L 07/24/20 19:33 ABG Oxyhemoglobin 94.5 (94-98) 07/24/20 19:33 ABG Methemoglobin 0.3 (0.0-1.5) 07/24/20 19:33 ABG Sodium 151.2 mmol/L (136.0-145.0) H 07/24/20 19:33 ABG Potassium 2.4 mmol/L (3.40-4.50) L 07/24/20 19:33 ABG Chloride 111.0 mmol/L (98-107) H 07/24/20 19:33 ABG Glucose 125 mg/dL (65-95) H 07/24/20 19:33 Carboxyhemoglobin 0.8 (0.5-1.5) 07/24/20 19:33 FiO2 % 90 07/24/20 19:33 Sodium 151 mmol/L (137-145) H 07/25/20 14:35 Potassium 3.4 mmol/L (3.6-5.0) L D 07/25/20 14:35 Chloride 109.7 mmol/L (98-107) H 07/25/20 14:35 Carbon Dioxide 31 mmol/L (22-30) H 07/25/20 14:35 Anion Gap 14 mmol/L 07/25/20 14:35 BUN 17 mg/dL (7-17) 07/25/20 14:35 Creatinine 0.5 mg/dL (0.6-1.2) L 07/25/20 14:35 Estimated GFR > 60 ml/min 07/25/20 14:35 BUN/Creatinine Ratio 34 % 07/25/20 14:35 Glucose 100 mg/dL (65-100) 07/25/20 14:35 POC Glucose 99 mg/dL (70-105) 07/25/20 10:03 Lactic Acid 1.90 mmol/L (0.7-2.0) 07/20/20 21:59 Calcium 7.7 mg/dL (8.4-10.2) L 07/25/20 14:35 Phosphorus 1.70 mg/dL (2.5-4.5) L 07/25/20 14:35 Magnesium 1.70 mg/dL (1.7-2.3) 07/25/20 05:15 Ferritin 1648.0 ng/mL (10.0-200.0) H 07/20/20 21:59 Total Bilirubin 0.50 mg/dL (0.1-1.2) 07/23/20 17:33 Direct Bilirubin < 0.2 mg/dL (0-0.2) 07/23/20 17:33 Indirect Bilirubin 0.3 mg/dL 07/23/20 17:33 AST 158 units/L (5-40) H 07/23/20 17:33 ALT 96 units/L (7-56) H 07/23/20 17:33 Alkaline Phosphatase 113 units/L (35-129) 07/23/20 17:33 Ammonia 39.0 umol/L (25-60) 07/23/20 17:33 Lactate Dehydrogenase 732 units/L (91-180) H 07/20/20 21:59 Total Creatine Kinase 98856 units/L (30-135) H 07/21/20 08:20 CK-MB (CK-2) 289.0 ng/mL (0.0-4.0) H 07/20/20 19:27 CK-MB (CK-2) Rel Index 2.0 (0-4) 07/20/20 19:27 Troponin T 0.026 ng/mL (0.00-0.029) 07/20/20 19:27 C-Reactive Protein 37.90 mg/dL (0.00-1.30) H 07/20/20 21:59 Total Protein 6.2 g/dL (6.3-8.2) L 07/23/20 17:33 Albumin 2.9 g/dL (3.9-5) L 07/23/20 17:33 Albumin/Globulin Ratio 0.9 % 07/23/20 17:33 Procalcitonin 40.67 ng/mL (<0.15) 07/20/20 21:59 TSH 0.454 mlU/mL (0.270-4.200) 07/20/20 19:27 Free T4 0.87 ng/dL (0.76-1.46) 07/20/20 19:27 Arterial Blood Glucose 125 mg/dL (65-95) H 07/24/20 19:33 Arterial Blood Ionized Calcium 4.3 mg/dL (4.6-5.3) L 07/24/20 19:33 Urine Color Yellow (Yellow) 07/21/20 Unknown Urine Turbidity Cloudy (Clear) 07/21/20 Unknown Urine pH 5.0 (5.0-7.0) 07/21/20 Unknown Ur Specific [place] 1.013 (1.003-1.030) 07/21/20 Unknown Urine Protein 30 mg/dl mg/dL (Negative) 07/21/20 Unknown Urine Glucose (UA) Neg mg/dL (Negative) 07/21/20 Unknown Urine Ketones Neg mg/dL (Negative) 07/21/20 Unknown Urine Blood Lg (Negative) 07/21/20 Unknown Urine Nitrite Neg (Negative) 07/21/20 Unknown Urine Bilirubin Neg (Negative) 07/21/20 Unknown Urine Urobilinogen < 2.0 mg/dL (<2.0) 07/21/20 Unknown Ur Leukocyte Esterase Sm (Negative) 07/21/20 Unknown Urine WBC (Auto) 28.0 /HPF (0.0-6.0) H 07/21/20 Unknown Urine RBC (Auto) 89.0 /HPF (0.0-6.0) 07/21/20 Unknown U Epithel Cells (Auto) 1.0 /HPF (0-13.0) 07/21/20 Unknown Urine WBC Clumps 2+ /HPF 07/21/20 Unknown Hyaline Casts 9 /LPF 07/21/20 Unknown Urine Mucus Few /HPF 07/21/20 Unknown Urine Yeast (Budding) 3+ /HPF 07/20/20 19:52 Urine Eosinophils None seen (None Seen) 07/21/20 Unknown Urine Creatinine < 4.2 mg/dL (0.1-20.0) 07/21/20 Unknown Urine Sodium 10 mmol/L 07/21/20 Unknown Random Vancomycin 4.7 ug/mL (0-40.0) 07/22/20 06:27 Urine Opiates Screen Positive 07/20/20 19:52 Urine Methadone Screen Negative 07/20/20 19:52 Ur Barbiturates Screen Negative 07/20/20 19:52 Ur Phencyclidine Scrn Negative 07/20/20 19:52 Ur Amphetamines Screen Negative 07/20/20 19:52 U Benzodiazepines Scrn Positive 07/20/20 19:52 Urine Cocaine Screen Negative 07/20/20 19:52 U Marijuana (THC) Screen Negative 07/20/20 19:52 Drugs of Abuse Note Disclamer 07/20/20 19:52 Coronavirus (PCR) Negative (Negative) 07/21/20 08:20 Hepatitis A IgM Ab Non-reactive (NonReactive) 07/23/20 17:33 Hep Bs Antigen Non-reactive (Negative) 07/23/20 17:33 Hep B Core IgM Ab Non-reactive (NonReactive) 07/23/20 17:33 Hepatitis C Antibody Reactive (NonReactive) A 07/23/20 17:33 Blood Type O POSITIVE 07/20/20 23:15 Antibody Screen Negative 07/20/20 23:15 Microbiology: Microbiology 07/20/20 19:32 Peripheral/Venous Blood Culture - Preliminary NO GROWTH AFTER 4 DAYS 07/20/20 19:27 Peripheral/Venous Blood Culture - Preliminary NO GROWTH AFTER 4 DAYS Russell/IV: Voiding Method Indwelling Catheter Active Medications - Current Medications Current Medications: Generic Name Dose Route Start Last Admin Trade Name Freq PRN Reason Stop Dose Admin Acetaminophen 650 mg 07/20/20 22:51 Acetaminophen 325 Mg/10.15 Ml Oral Liqd Unit Dose FEEDTUBE Q6H PRN Pain MILD(1-3)/Fever >100.5/HESS Albuterol/Ipratropium 1 ampul 07/20/20 23:00 07/25/20 14:48 Ipratropium/Albuterol Sulfate 3 Ml Ampul.Neb IH 1 ampul Q6HRT HONEY Administration Alprazolam 2 mg 07/24/20 22:00 07/25/20 13:00 Alprazolam 1 Mg Tab PO 2 mg Q8HR HONEY Administration Lipase/Protease/Amylase 1 each 07/24/20 18:26 Lipase 10,500/Protease 25,000/Amylase 43,750 (Units) Dr [place] FEEDTUBE PRN PRN For Clogged Feeding Tube Famotidine 20 mg 07/20/20 23:00 07/25/20 08:59 Famotidine 20 Mg/2 Ml Inj IV 20 mg QAM HONEY Administration Haloperidol Lactate 5 mg 07/22/20 12:00 07/25/20 12:56 Haloperidol Lactate 5 Mg/1 Ml Inj IV Not Given Q6H HONEY Haloperidol Lactate 5 mg 07/23/20 17:24 Haloperidol Lactate 5 Mg/1 Ml Inj IV Q1HR PRN Unrespon. to mult. doses BZD's Hydralazine HCl 10 mg 07/22/20 23:25 07/24/20 15:02 Hydralazine 20 Mg/1 Ml Inj IV 10 mg Q6H PRN Administration Hypertension Folic Acid 1 mg/ Sodium 50.2 mls @ 200.8 mls/hr 07/23/20 18:00 07/25/20 10:11 Chloride IV Infused QDAY HONEY Infusion Thiamine HCl 100 mg/ Sodium 51 mls @ 100 mls/hr 07/23/20 18:00 07/25/20 10:11 Chloride IV Infused QDAY HONEY Infusion Ceftriaxone Sodium 1 gm in 50 mls @ 100 mls/hr 07/24/20 10:00 07/25/20 10:11 Rocephin/Ns 1 Gm/50 Ml IV 07/27/20 10:29 Infused Q24H HONEY Infusion Protocol Potassium Phosphate 30 mmol/ 510 mls @ 83 mls/hr 07/25/20 16:00 Sodium Chloride IV 07/25/20 22:08 ONCE ONE Potassium Chloride 20 meq/ 1,010 mls @ 125 mls/hr 07/25/20 16:00 Dextrose IV DIRECT HONEY Lorazepam 2 mg 07/23/20 17:24 07/25/20 06:30 Lorazepam 2 Mg/Ml Vial IV 2 mg Q1HR PRN Administration CIWA-Ar 8-15 Lorazepam 4 mg 07/23/20 17:24 07/25/20 09:15 Lorazepam 2 Mg/Ml Vial IV 4 mg Q1HR PRN Administration CIWA-Ar 16-25 Lorazepam 4 mg 07/23/20 17:24 Lorazepam 2 Mg/Ml Vial IV Q15MIN PRN CIWA-Ar >25 Metoclopramide HCl 5 mg 07/20/20 22:51 Metoclopramide 10 Mg/2 Ml Inj IV Q6H PRN Nausea And Vomiting Simple Syrup 15 ml 07/24/20 18:26 Simple Syrup 15 Ml FEEDTUBE PRN PRN Hypoglycemia Simple Syrup 30 ml 07/24/20 18:26 Simple Syrup 15 Ml FEEDTUBE PRN PRN Hypoglycemia Sodium Bicarbonate 325 mg 07/24/20 18:26 Sodium Bicarbonate 325 Mg Tab FEEDTUBE PRN PRN For Clogged Feeding Tube Sodium Chloride 10 ml 07/21/20 10:00 07/25/20 09:24 Sodium Chloride 0.9% 10 Ml Flush Syringe IV 10 ml BID HONEY Administration Sodium Chloride 10 ml 07/20/20 22:51 07/25/20 05:01 Sodium Chloride 0.9% 10 Ml Flush Syringe IV 10 ml PRN PRN Administration LINE FLUSH Nutrition/Malnutrition Assess - Dietary Evaluation Nutrition/Malnutrition Findings: Nutrition Notes Start: 07/22/20 12:24 Freq: Status: Active Protocol: Document 07/25/20 08:37 CW (Rec: 07/25/20 09:05 CW [email or web address]) Nutrition Notes Need for Assessment generated from: MD Order Initial or Follow up Reassessment Current Diagnosis Acute Kidney Injury,Sepsis, Hypertension Other Pertinent Diagnosis Hep C, AMS, UTI, Encephalopathy, dehydration Current Diet TF Labs/Tests Na 152 K 2.6 BUN 21 Cr 0.5 BG 124 phos 1.8 Pertinent Medications D5w AT 125 ml/hr thiamine in NS at 100 ml/hr Folic Acid in NS at 201 ml/hr KCl 40 meQ (at 10A on 2020) Height 5 ft 3 in Weight 53 kg [place] Body Weight (kg) 52.27 BMI 20.7 Weight change and time frame Stable at this time Weight Status Underweight Subjective/Other Information MD consult for manage TF. BUN is improving. Durinmg rounds, Dr Kamara discussed inability to feed pt via TF and recommends to initiate PN once PICC lined placed. Phos is being repleted. Will await new labs for improving phos Percent of energy/protein needs met: 0%/0% Burn Absent Trauma Absent GI Symptoms None Current % PO Negligible Minimum of two criteria No physical signs of malnutrition #1 Nutrition Diagnosis Inadequate oral intake Diagnosis Progress(for reassessment Continues documentation) Is patient on ventilator? No Is Patient Ambulatory and/or Out of Bed No REE-([facility]-confined to bed) 1258.560 Kcal/Kg value to use for calculation 30 Approximate Energy Requirements Using 1590 kcal/Kg Calculation Used for Recommendations Kcal/kg Additional Notes Protein needs are 64-106g (1.2 -2g/kg) Fluid needs are 1ml/kcal Nutrition Intervention Change Diet Order: TF if medically feasible or PN Nutrition Support: Osmolite 1.5 at 45 ml/h with a free water flush of 250 ml q4h for hypernatremia. Once hypernatremia resolve, resume flush at 135 ml q4h Kcal 1,620 Protein (gm) 68 Fluid (mL) 823 Goal #1 Initiate either TF or PN Anticipated Discharge Needs: unable to determine at this time Follow-Up By: 07/27/20 Additional Comments F/U for POC, TPN consult, PICC placement <CONCHITA STEELE - Last Filed: 07/26/20 07:02> Assessment and Plan Assessment and plan: I saw and evaluated the patient. I agree with the findings and the plan of care as documented in the Nurse Practitioner's~note, with the following corrections and additions. Hospitalist Physical - Constitutional Vitals: Temp Pulse Resp BP Pulse Ox 98.9 F 82 31 H 133/69 100 07/26/20 03:24 07/26/20 06:00 07/26/20 06:00 07/26/20 06:00 07/26/20 06:00 HEART Score - HEART Score Troponin: Troponin T 0.026 ng/mL (0.00-0.029) 07/20/20 19:27 Results - Labs CBC & Chem 7: 07/26/20 Unknown 07/26/20 04:00 Labs: Laboratory Last Values WBC 12.6 K/mm3 (4.5-11.0) H 07/26/20 Unknown RBC 2.92 M/mm3 (3.65-5.03) L 07/26/20 Unknown Hgb 9.8 gm/dl (10.1-14.3) L 07/26/20 Unknown Hct 29.3 % (30.3-42.9) L 07/26/20 Unknown MCV 100 fl (79-97) H 07/26/20 Unknown MCH 34 pg (28-32) H 07/26/20 Unknown MCHC 34 % (30-34) 07/26/20 Unknown RDW 13.4 % (13.2-15.2) 07/26/20 Unknown Plt Count 73 K/mm3 (140-440) L 07/26/20 Unknown Lymph % (Auto) 9.5 % (13.4-35.0) L 07/25/20 05:15 [place] % (Auto) 2.0 % (0.0-7.3) 07/25/20 05:15 Eos % (Auto) 0.2 % (0.0-4.3) 07/25/20 05:15 Baso % (Auto) 0.1 % (0.0-1.8) 07/25/20 05:15 Lymph # (Auto) 1.1 K/mm3 (1.2-5.4) L 07/25/20 05:15 [place] # (Auto) 0.2 K/mm3 (0.0-0.8) 07/25/20 05:15 Eos # (Auto) 0.0 K/mm3 (0.0-0.4) 07/25/20 05:15 Baso # (Auto) 0.0 K/mm3 (0.0-0.1) 07/25/20 05:15 Add Manual Diff Complete 07/21/20 04:00 Total Counted 100 07/21/20 04:00 Seg Neutrophils % 88.2 % (40.0-70.0) H 07/25/20 05:15 Seg Neuts % (Manual) 62.0 % (40.0-70.0) 07/21/20 04:00 Band Neutrophils % 32.0 % 07/21/20 04:00 Lymphocytes % (Manual) 2.0 % (13.4-35.0) L 07/21/20 04:00 Monocytes % (Manual) 4.0 % (0.0-7.3) 07/21/20 04:00 Nucleated RBC % Not Reportable 07/21/20 04:00 Seg Neutrophils # 10.6 K/mm3 (1.8-7.7) H 07/25/20 05:15 Seg Neutrophils # Man 9.4 K/mm3 (1.8-7.7) H 07/21/20 04:00 Band Neutrophils # 4.8 K/mm3 07/21/20 04:00 Lymphocytes # (Manual) 0.3 K/mm3 (1.2-5.4) L 07/21/20 04:00 Abs React Lymphs (Man) 0.0 K/mm3 07/21/20 04:00 Monocytes # (Manual) 0.6 K/mm3 (0.0-0.8) 07/21/20 04:00 Eosinophils # (Manual) 0.0 K/mm3 (0.0-0.4) 07/21/20 04:00 Basophils # (Manual) 0.0 K/mm3 (0.0-0.1) 07/21/20 04:00 Metamyelocytes # 0.0 K/mm3 07/21/20 04:00 Myelocytes # 0.0 K/mm3 07/21/20 04:00 Promyelocytes # 0.0 K/mm3 07/21/20 04:00 Blast Cells # 0.0 K/mm3 07/21/20 04:00 WBC Morphology Not Reportable 07/21/20 04:00 Hypersegmented Neuts Not Reportable 07/21/20 04:00 Hyposegmented Neuts Not Reportable 07/21/20 04:00 Hypogranular Neuts Not Reportable 07/21/20 04:00 Smudge Cells Not Reportable 07/21/20 04:00 Toxic Granulation Not Reportable 07/21/20 04:00 Toxic Vacuolation Not Reportable 07/21/20 04:00 Dohle Bodies Not Reportable 07/21/20 04:00 Pel[place]uet Anomaly Not Reportable 07/21/20 04:00 Elia Rods Not Reportable 07/21/20 04:00 Platelet Estimate Consistent w auto 07/21/20 04:00 Clumped Platelets Not Reportable 07/21/20 04:00 Plt Clumps, EDTA Not Reportable 07/21/20 04:00 Large Platelets Not Reportable 07/21/20 04:00 Giant Platelets Not Reportable 07/21/20 04:00 Platelet Satelliting Not Reportable 07/21/20 04:00 Plt Morphology Comment Not Reportable 07/21/20 04:00 RBC Morphology Not Reportable 07/21/20 04:00 Dimorphic RBCs Not Reportable 07/21/20 04:00 Polychromasia Not Reportable 07/21/20 04:00 Hypochromasia Not Reportable 07/21/20 04:00 Poikilocytosis Not Reportable 07/21/20 04:00 Anisocytosis Not Reportable 07/21/20 04:00 Microcytosis Not Reportable 07/21/20 04:00 Macrocytosis Not Reportable 07/21/20 04:00 Spherocytes Not Reportable 07/21/20 04:00 Pappenheimer Bodies Not Reportable 07/21/20 04:00 Sickle Cells Not Reportable 07/21/20 04:00 Target Cells Not Reportable 07/21/20 04:00 Tear Drop Cells Not Reportable 07/21/20 04:00 Ovalocytes Not Reportable 07/21/20 04:00 Helmet Cells Not Reportable 07/21/20 04:00 [place] Bodies Not Reportable 07/21/20 04:00 [place] Rings Not Reportable 07/21/20 04:00 [place] Cells 1+ 07/21/20 04:00 Bite Cells Not Reportable 07/21/20 04:00 Crenated Cell Not Reportable 07/21/20 04:00 Elliptocytes Not Reportable 07/21/20 04:00 Acanthocytes (Spur) Not Reportable 07/21/20 04:00 Rouleaux Not Reportable 07/21/20 04:00 Hemoglobin C Crystals Not Reportable 07/21/20 04:00 Schistocytes Not Reportable 07/21/20 04:00 [place] parasites Not Reportable 07/21/20 04:00 Junior Bodies Not Reportable 07/21/20 04:00 Hem Pathologist Commnt No 07/21/20 04:00 PT 20.1 Sec. (12.2-14.9) H 07/20/20 19:32 INR 1.72 (0.87-1.13) H 07/20/20 19:32 APTT 33.7 Sec. (24.2-36.6) 07/20/20 19:32 D-Dimer 2098.49 ng/mlDDU (0-234) H 07/20/20 21:59 ABG pH 7.523 (7.320-7.450) H 07/24/20 19:33 POC ABG pCO2 41.7 mmHg (32.0-48.0) 07/24/20 19:33 POC ABG pO2 76.4 mmHg (83-108) L 07/24/20 19:33 POC ABG HCO3 33.5 07/24/20 19:33 ABG O2 Saturation 95.6 (0-100) 07/24/20 19:33 POC ABG Base Excess 9.8 07/24/20 19:33 ABG Hemoglobin 10.3 (12.0-17.5) L 07/24/20 19:33 ABG Oxyhemoglobin 94.5 (94-98) 07/24/20 19:33 ABG Methemoglobin 0.3 (0.0-1.5) 07/24/20 19:33 ABG Sodium 151.2 mmol/L (136.0-145.0) H 07/24/20 19:33 ABG Potassium 2.4 mmol/L (3.40-4.50) L 07/24/20 19:33 ABG Chloride 111.0 mmol/L (98-107) H 07/24/20 19:33 ABG Glucose 125 mg/dL (65-95) H 07/24/20 19:33 Carboxyhemoglobin 0.8 (0.5-1.5) 07/24/20 19:33 FiO2 % 90 07/24/20 19:33 Sodium 146 mmol/L (137-145) H 07/26/20 04:00 Potassium 3.3 mmol/L (3.6-5.0) L D 07/26/20 04:00 Chloride 105.2 mmol/L (98-107) 07/26/20 04:00 Carbon Dioxide 35 mmol/L (22-30) H 07/26/20 04:00 Anion Gap 9 mmol/L 07/26/20 04:00 BUN 14 mg/dL (7-17) 07/26/20 04:00 Creatinine 0.4 mg/dL (0.6-1.2) L 07/26/20 04:00 Estimated GFR > 60 ml/min 07/26/20 04:00 BUN/Creatinine Ratio 35 % 07/26/20 04:00 Glucose 114 mg/dL (65-100) H 07/26/20 04:00 POC Glucose 101 mg/dL (70-105) 07/26/20 02:13 Lactic Acid 1.90 mmol/L (0.7-2.0) 07/20/20 21:59 Calcium 7.3 mg/dL (8.4-10.2) L 07/26/20 04:00 Phosphorus 2.90 mg/dL (2.5-4.5) D 07/26/20 04:00 Magnesium 2.00 mg/dL (1.7-2.3) 07/26/20 04:00 Ferritin 1648.0 ng/mL (10.0-200.0) H 07/20/20 21:59 Total Bilirubin 0.40 mg/dL (0.1-1.2) 07/26/20 04:00 Direct Bilirubin < 0.2 mg/dL (0-0.2) 07/23/20 17:33 Indirect Bilirubin 0.3 mg/dL 07/23/20 17:33 AST 74 units/L (5-40) H 07/26/20 04:00 ALT 79 units/L (7-56) H 07/26/20 04:00 Alkaline Phosphatase 101 units/L (35-129) 07/26/20 04:00 Ammonia 39.0 umol/L (25-60) 07/23/20 17:33 Lactate Dehydrogenase 732 units/L (91-180) H 07/20/20 21:59 Total Creatine Kinase 02045 units/L (30-135) H 07/21/20 08:20 CK-MB (CK-2) 289.0 ng/mL (0.0-4.0) H 07/20/20 19:27 CK-MB (CK-2) Rel Index 2.0 (0-4) 07/20/20 19:27 Troponin T 0.026 ng/mL (0.00-0.029) 07/20/20 19:27 C-Reactive Protein 37.90 mg/dL (0.00-1.30) H 07/20/20 21:59 Total Protein 5.0 g/dL (6.3-8.2) L 07/26/20 04:00 Albumin 2.5 g/dL (3.9-5) L 07/26/20 04:00 Albumin/Globulin Ratio 1.0 % 07/26/20 04:00 Procalcitonin 40.67 ng/mL (<0.15) 07/20/20 21:59 TSH 0.454 mlU/mL (0.270-4.200) 07/20/20 19: Free T4 0.87 ng/dL (0.76-1.46) 07/20/20 19:27 Arterial Blood Glucose 125 mg/dL (65-95) H 07/24/20 19:33 Arterial Blood Ionized Calcium 4.3 mg/dL (4.6-5.3) L 07/24/20 19:33 Urine Color Yellow (Yellow) 07/21/20 Unknown Urine Turbidity Cloudy (Clear) 07/21/20 Unknown Urine pH 5.0 (5.0-7.0) 07/21/20 Unknown Ur Specific [place] 1.013 (1.003-1.030) 07/21/20 Unknown Urine Protein 30 mg/dl mg/dL (Negative) 07/21/20 Unknown Urine Glucose (UA) Neg mg/dL (Negative) 07/21/20 Unknown Urine Ketones Neg mg/dL (Negative) 07/21/20 Unknown Urine Blood Lg (Negative) 07/21/20 Unknown Urine Nitrite Neg (Negative) 07/21/20 Unknown Urine Bilirubin Neg (Negative) 07/21/20 Unknown Urine Urobilinogen < 2.0 mg/dL (<2.0) 07/21/20 Unknown Ur Leukocyte Esterase Sm (Negative) 07/21/20 Unknown Urine WBC (Auto) 28.0 /HPF (0.0-6.0) H 07/21/20 Unknown Urine RBC (Auto) 89.0 /HPF (0.0-6.0) 07/21/20 Unknown U Epithel Cells (Auto) 1.0 /HPF (0-13.0) 07/21/20 Unknown Urine WBC Clumps 2+ /HPF 07/21/20 Unknown Hyaline Casts 9 /LPF 07/21/20 Unknown Urine Mucus Few /HPF 07/21/20 Unknown Urine Yeast (Budding) 3+ /HPF 07/20/20 19:52 Urine Eosinophils None seen (None Seen) 07/21/20 Unknown Urine Creatinine < 4.2 mg/dL (0.1-20.0) 07/21/20 Unknown Urine Sodium 10 mmol/L 07/21/20 Unknown Random Vancomycin 4.7 ug/mL (0-40.0) 07/22/20 06:27 Urine Opiates Screen Positive 07/20/20 19:52 Urine Methadone Screen Negative 07/20/20 19:52 Ur Barbiturates Screen Negative 07/20/20 19:52 Ur Phencyclidine Scrn Negative 07/20/20 19:52 Ur Amphetamines Screen Negative 07/20/20 19:52 U Benzodiazepines Scrn Positive 07/20/20 19:52 Urine Cocaine Screen Negative 07/20/20 19:52 U Marijuana (THC) Screen Negative 07/20/20 19:52 Drugs of Abuse Note Disclamer 07/20/20 19:52 Coronavirus (PCR) Negative (Negative) 07/21/20 08:20 Hepatitis A IgM Ab Non-reactive (NonReactive) 07/23/20 17:33 Hep Bs Antigen Non-reactive (Negative) 07/23/20 17:33 Hep B Core IgM Ab Non-reactive (NonReactive) 07/23/20 17:33 Hepatitis C Antibody Reactive (NonReactive) A 07/23/20 17:33 Blood Type O POSITIVE 07/20/20 23:15 Antibody Screen Negative 07/20/20 23:15 Microbiology: Microbiology 07/20/20 19:32 Peripheral/Venous Blood Culture - Final NO GROWTH AFTER 5 DAYS 07/20/20 19:27 Peripheral/Venous Blood Culture - Final NO GROWTH AFTER 5 DAYS Russell/IV: Voiding Method Indwelling Catheter Active Medications - Current Medications Current Medications: Generic Name Dose Route Start Last Admin Trade Name Freq PRN Reason Stop Dose Admin Acetaminophen 650 mg 07/20/20 22:51 Acetaminophen 325 Mg/10.15 Ml Oral Liqd Unit Dose FEEDTUBE Q6H PRN Pain MILD(1-3)/Fever >100.5/HESS Albuterol/Ipratropium 1 ampul 07/20/20 23:00 07/26/20 04:01 Ipratropium/Albuterol Sulfate 3 Ml Ampul.Neb IH 1 ampul Q6HRT HONEY Administration Alprazolam 2 mg 07/24/20 22:00 07/26/20 05:31 Alprazolam 1 Mg Tab PO 2 mg Q8HR HONEY Administration Lipase/Protease/Amylase 1 each 07/24/20 18:26 Lipase 10,500/Protease 25,000/Amylase 43,750 (Units) Dr [place] FEEDTUBE PRN PRN For Clogged Feeding Tube Famotidine 20 mg 07/20/20 23:00 07/25/20 08:59 Famotidine 20 Mg/2 Ml Inj IV 20 mg QAM HONEY Administration Haloperidol Lactate 5 mg 07/22/20 12:00 07/26/20 05:31 Haloperidol Lactate 5 Mg/1 Ml Inj IV 5 mg Q6H HONEY Administration Haloperidol Lactate 5 mg 07/23/20 17:24 Haloperidol Lactate 5 Mg/1 Ml Inj IV Q1HR PRN Unrespon. to mult. doses BZD's Hydralazine HCl 10 mg 07/22/20 23:25 07/24/20 15:02 Hydralazine 20 Mg/1 Ml Inj IV 10 mg Q6H PRN Administration Hypertension Folic Acid 1 mg/ Sodium 50.2 mls @ 200.8 mls/hr 07/23/20 18:00 07/25/20 10:11 Chloride IV Infused QDAY HONEY Infusion Thiamine HCl 100 mg/ Sodium 51 mls @ 100 mls/hr 07/23/20 18:00 07/25/20 10:11 Chloride IV Infused QDAY HONEY Infusion Ceftriaxone Sodium 1 gm in 50 mls @ 100 mls/hr 07/24/20 10:00 07/25/20 10:11 Rocephin/Ns 1 Gm/50 Ml IV 07/27/20 10:29 Infused Q24H HONEY Infusion Protocol Potassium Chloride 20 meq/ 1,010 mls @ 125 mls/hr 07/25/20 16:00 07/25/20 23:54 Dextrose IV 125 mls/hr DIRECT HONEY Administration Lorazepam 2 mg 07/23/20 17:24 07/25/20 06:30 Lorazepam 2 Mg/Ml Vial IV 2 mg Q1HR PRN Administration CIWA-Ar 8-15 Lorazepam 4 mg 07/23/20 17:24 07/25/20 09:15 Lorazepam 2 Mg/Ml Vial IV 4 mg Q1HR PRN Administration CIWA-Ar 16-25 Lorazepam 4 mg 07/23/20 17:24 Lorazepam 2 Mg/Ml Vial IV Q15MIN PRN CIWA-Ar >25 Metoclopramide HCl 5 mg 07/20/20 22:51 Metoclopramide 10 Mg/2 Ml Inj IV Q6H PRN Nausea And Vomiting Simple Syrup 15 ml 07/24/20 18:26 Simple Syrup 15 Ml FEEDTUBE PRN PRN Hypoglycemia Simple Syrup 30 ml 07/24/20 18:26 Simple Syrup 15 Ml FEEDTUBE PRN PRN Hypoglycemia Sodium Bicarbonate 325 mg 07/24/20 18:26 Sodium Bicarbonate 325 Mg Tab FEEDTUBE PRN PRN For Clogged Feeding Tube Sodium Chloride 10 ml 07/21/20 10:00 07/25/20 21:30 Sodium Chloride 0.9% 10 Ml Flush Syringe IV 10 ml BID HONEY Administration Sodium Chloride 10 ml 07/20/20 22:51 07/25/20 05:01 Sodium Chloride 0.9% 10 Ml Flush Syringe IV 10 ml PRN PRN Administration LINE FLUSH Nutrition/Malnutrition Assess - Dietary Evaluation Nutrition/Malnutrition Findings: Nutrition Notes Start: 07/22/20 12:24 Freq: Status: Active Protocol: Document 07/25/20 08:37 CW (Rec: 07/25/20 09:05 CW [email or web address]) Nutrition Notes Need for Assessment generated from: MD Order Initial or Follow up Reassessment Current Diagnosis Acute Kidney Injury,Sepsis, Hypertension Other Pertinent Diagnosis Hep C, AMS, UTI, Encephalopathy, dehydration Current Diet TF Labs/Tests Na 152 K 2.6 BUN 21 Cr 0.5 BG 124 phos 1.8 Pertinent Medications D5w AT 125 ml/hr thiamine in NS at 100 ml/hr Folic Acid in NS at 201 ml/hr KCl 40 meQ (at 10A on 2020) Height 5 ft 3 in Weight 53 kg [place] Body Weight (kg) 52.27 BMI 20.7 Weight change and time frame Stable at this time Weight Status Underweight Subjective/Other Information MD consult for manage TF. BUN is improving. Durinmg rounds, Dr Kamara discussed inability to feed pt via TF and recommends to initiate PN once PICC lined placed. Phos is being repleted. Will await new labs for improving phos Percent of energy/protein needs met: 0%/0% Burn Absent Trauma Absent GI Symptoms None Current % PO Negligible Minimum of two criteria No physical signs of malnutrition #1 Nutrition Diagnosis Inadequate oral intake Diagnosis Progress(for reassessment Continues documentation) Is patient on ventilator? No Is Patient Ambulatory and/or Out of Bed No REE-([place]-[facility] Jeor-confined to bed) 1258.560 Kcal/Kg value to use for calculation 30 Approximate Energy Requirements Using 1590 kcal/Kg Calculation Used for Recommendations Kcal/kg Additional Notes Protein needs are 64-106g (1.2 -2g/kg) Fluid needs are 1ml/kcal Nutrition Intervention Change Diet Order: TF if medically feasible or PN Nutrition Support: Osmolite 1.5 at 45 ml/h with a free water flush of 250 ml q4h for hypernatremia. Once hypernatremia resolve, resume flush at 135 ml q4h Kcal 1,620 Protein (gm) 68 Fluid (mL) 823 Goal #1 Initiate either TF or PN Anticipated Discharge Needs: unable to determine at this time Follow-Up By: 07/27/20 Additional Comments F/U for POC, TPN consult, PICC placement
[2020-07-25] MEDS: POTASSIUM CHLORIDE 20 MEQ in DEXTROSE 5% IN WATER 1,000 ML IV SCH ×2 (16:44→23:54)
[2020-07-25 19:08] LABS: Blood Urea Nitrogen 16 mg/dL (7-17); Calcium 7.5 mg/dL (8.4-10.2); Hemolysis Index 248
[2020-07-25 19:20] LABS: BUN/Creatinine Ratio 40
[2020-07-26] MEDS: IPRATROPIUM/ALBUTEROL SULFATE 3 ML AMPUL.NEB IH SCH ×4 (04:01→20:00)
[2020-07-26] MEDS: HALOPERIDOL LACTATE 5 MG/1 ML INJ IV SCH ×3 (05:31→17:56)
[2020-07-26] MEDS: ALPRAZolam 1 MG TAB PO SCH ×3 (05:31→21:24)
[2020-07-26 05:32] LABS: Hematocrit 29.3 % (30.3-42.9); Hemoglobin 9.8 gm/dl (10.1-14.3); Mean Corpuscular HGB Conc 34 % (30-34); Mean Corpuscular Volume 100 fl (79-97); Platelet Count 73 K/mm3 (140-440); Red Blood Count 2.92 M/mm3 (3.65-5.03); Red Cell Distribution Width 13.4 % (13.2-15.2)
[2020-07-26 05:47] LABS: Alanine Aminotransferase 79 units/L (7-56); Albumin 2.5 g/dL (3.9-5); Blood Urea Nitrogen 14 mg/dL (7-17); Calcium 7.3 mg/dL (8.4-10.2); Hemolysis Index 6
[2020-07-26 06:17] LABS: BUN/Creatinine Ratio 35
[2020-07-26] MEDS ORDERED: POTASSIUM CHLORIDE 20 MEQ PACKET FEEDTUBE ONE (09:00)
[2020-07-26] MEDS: FAMOTIDINE 20 MG/2 ML INJ IV SCH (09:14)
[2020-07-26] MEDS: FOLIC ACID 1 MG in SODIUM CHLORIDE 0.9% 50 ML IV SCH (09:14)
[2020-07-26] MEDS: THIAMINE 100 MG in SODIUM CHLORIDE 0.9% 50 ML IV SCH (09:14)
[2020-07-26] MEDS: cefTRIAXone/NS 1 GM/50 ML 1 GM/50 ML BAG IV SCH (09:18)
[2020-07-26] MEDS ORDERED: DEXTROSE 50% IN WATER (25GM) 50 ML SYRINGE IV PRN (10:10)
--- NOTE | 2020-07-26 11:12 | Progress Note ---
Assessment and Plan 65 y/o female with altered mental state, hypotension, renal failure and electrolyte imbalance with UTI seen on urine analysis and presumptive sepsis with distributive shock. 07/26/20: Picc placement going on now. Will start PPN after that and then stop D5 drip. If able to wean off bipap can start Tube feeds tomorrow once bag of PPN finished. LTACH referral in place. Suggest neurology consult as well. Will check B12 and folate levels. Guarded prognosis. Would like to obtain CT of chest when able to be more compliant and more stable in scanner. 07/24/20: Will attempt to wean bipap therapy for sats >88%. Slowed rate of D5 down to not correct Na to fast. Suggest starting patient on PPN until bipap can be weaned off. She is very high risk for aspiration with NG tube feeds and continuous bipap therapy. More calm with PRN ativan therapy so will continue. BP elevated but no fever, still could be withdrawing from ETOH. Discussed on rounds and will see if patient is an LTACH candidate. 07/23/20: Will transfer to floor given her AND status. Family is still making decisions. Discussed with IM and they agree. WIll see PRN on the floor. Very poor prognosis. 07/22/20: Stop maintenance. Continue current abx therapy. Will start scheduled haldol therapy to see if this will hep mental sate. Suggest continuation of bicarb drip and will give a couple of amps of bicarb today. Follow up renal recs. Patient has moderate pulmonary hypertension seen on echo. Will obtain lung history once more awake or from . Could be related to underlying lung disease. CXR maybe more consistent with ILD than pulmonary edema. Will obtain CT of chest when more stable. Remove central line today and obtain peripheral access. Maybe stable enough for step down, will discuss on rounds. Can stop q6 hour BMP's. ONce off bipap can assess nutrition. 1. Needs more fluid resuscitation. Ordered for 2 more liters of saline now and additional to be bolused after rounds today 2. Agree with broad spec abx therapy follow up on cultures of urine and blood 3. Currently on bipap but hopeful we can wean as tolerated given improvement in mental status. 4. Spoke with renal and they agree with more volume and chemical management of hyperkalemia 5. Given CXR appearance and no other imaging, will obtain 2D echo as well. her hypotension could be from sepsis but need to make sure cardiac function is ok. She may need inotropic help with pressor requirement does not improve. 6. Continue to assess volume throughout the day 7. CMP q6 hours to monitor sodium and other electrolytes 8. ordered picc but likely will not happen today. continue right femoral groin line. 9. Hold on feeds given her pressor requirement and bipap requirement 10. DVT and GI prophylaxis. Guarded prognosis. CCT 31 minutes. Subjective Date of service: 07/26/20 Interval history: Slightly more awake. Definitely more calm. Was off bipap for several hours but got agitated and pulled off HFNC and had significant desats that did not recover with just HFNC so placed back on the bipap. Spoke with over the phone on yesterday. Remainder is negative. Objective Vital Signs - 12hr 07/25/20 07/26/20 07/26/20 23:49 00:00 01:00 Temperature 98.4 F Pulse Rate 80 75 Pulse Rate [ Bilateral Throughout] Pulse Rate [ 93 H From Monitor] Respiratory 35 H 25 H Rate Respiratory Rate [Bilateral Throughout] Blood Pressure 116/69 123/67 O2 Sat by Pulse 100 100 Oximetry 07/26/20 07/26/20 07/26/20 02:00 03:00 03:24 Temperature 98.9 F Pulse Rate 77 81 Pulse Rate [ Bilateral Throughout] Pulse Rate [ From Monitor] Respiratory 28 H 37 H Rate Respiratory Rate [Bilateral Throughout] Blood Pressure 110/61 155/78 O2 Sat by Pulse 99 100 Oximetry 07/26/20 07/26/20 07/26/20 03:55 04:00 05:00 Temperature Pulse Rate 79 78 82 Pulse Rate [ 91 H Bilateral Throughout] Pulse Rate [ 79 From Monitor] Respiratory 30 H 33 H 37 H Rate Respiratory 30 H Rate [Bilateral Throughout] Blood Pressure 138/76 141/82 149/78 O2 Sat by Pulse 96 100 100 Oximetry 07/26/20 07/26/20 07/26/20 06:00 07:00 07:48 Temperature Pulse Rate 82 83 75 Pulse Rate [ Bilateral Throughout] Pulse Rate [ From Monitor] Respiratory 31 H 35 H 35 H Rate Respiratory Rate [Bilateral Throughout] Blood Pressure 133/69 131/79 120/78 O2 Sat by Pulse 100 100 100 Oximetry 07/26/20 07/26/20 07/26/20 08:00 09:00 10:00 Temperature 98 F Pulse Rate 80 78 86 Pulse Rate [ Bilateral Throughout] Pulse Rate [ 80 From Monitor] Respiratory 33 H 32 H 38 H Rate Respiratory Rate [Bilateral Throughout] Blood Pressure 121/82 111/81 134/91 O2 Sat by Pulse 100 100 99 Oximetry 07/26/20 11:00 Temperature Pulse Rate 83 Pulse Rate [ Bilateral Throughout] Pulse Rate [ From Monitor] Respiratory 44 H Rate Respiratory Rate [Bilateral Throughout] Blood Pressure 142/88 O2 Sat by Pulse 100 Oximetry CBC and BMP: 07/26/20 Unknown 07/26/20 04:00 ABG, PT/INR, D-dimer: ABG ABG pH 7.523 (7.320-7.450) H 07/24/20 19:33 POC ABG pCO2 41.7 mmHg (32.0-48.0) 07/24/20 19:33 POC ABG pO2 76.4 mmHg (83-108) L 07/24/20 19:33 POC ABG HCO3 33.5 07/24/20 19:33 ABG O2 Saturation 95.6 (0-100) 07/24/20 19:33 PT/INR, D-dimer PT 20.1 Sec. (12.2-14.9) H 07/20/20 19:32 INR 1.72 (0.87-1.13) H 07/20/20 19:32 D-Dimer 2098.49 ng/mlDDU (0-234) H 07/20/20 21:59 Abnormal lab findings: Abnormal Labs 07/20/20 07/20/20 07/20/20 19:20 19:27 19:27 WBC 17.9 H RBC Hgb Hct MCV 102 H MCH 33 H Plt Count Lymph % (Auto) 4.4 L Lymph # (Auto) 0.8 L Baso # (Auto) 0.3 H Seg Neutrophils % 90.0 H Lymphocytes % (Manual) Seg Neutrophils # 16.1 H Seg Neutrophils # Man Lymphocytes # (Manual) PT INR D-Dimer ABG pH POC ABG pO2 ABG Hemoglobin ABG Oxyhemoglobin ABG Sodium ABG Potassium ABG Chloride ABG Glucose Sodium 130 L Potassium 5.6 H Chloride 84.4 L Carbon Dioxide 14 L BUN 108 H Creatinine 7.7 H Glucose POC Glucose 55 L Lactic Acid Calcium 7.4 L Phosphorus Ferritin AST 306 H ALT 97 H Ammonia Lactate Dehydrogenase Total Creatine Kinase CK-MB (CK-2) C-Reactive Protein Total Protein Albumin 3.3 L Arterial Blood Glucose Arterial Blood Ionized Calcium Urine WBC (Auto) Hepatitis C Antibody 07/20/20 07/20/20 07/20/20 19:27 19:27 19:32 WBC RBC Hgb Hct MCV MCH Plt Count Lymph % (Auto) Lymph # (Auto) Baso # (Auto) Seg Neutrophils % Lymphocytes % (Manual) Seg Neutrophils # Seg Neutrophils # Man Lymphocytes # (Manual) PT 20.1 H INR 1.72 H D-Dimer ABG pH POC ABG pO2 ABG Hemoglobin ABG Oxyhemoglobin ABG Sodium ABG Potassium ABG Chloride ABG Glucose Sodium Potassium Chloride Carbon Dioxide BUN Creatinine Glucose POC Glucose Lactic Acid 3.10 H* Calcium Phosphorus Ferritin AST ALT Ammonia Lactate Dehydrogenase Total Creatine Kinase 59630 H CK-MB (CK-2) 289.0 H C-Reactive Protein Total Protein Albumin Arterial Blood Glucose Arterial Blood Ionized Calcium Urine WBC (Auto) Hepatitis C Antibody 07/20/20 07/20/20 07/20/20 19:52 19:59 20:41 WBC RBC Hgb Hct MCV MCH Plt Count Lymph % (Auto) Lymph # (Auto) Baso # (Auto) Seg Neutrophils % Lymphocytes % (Manual) Seg Neutrophils # Seg Neutrophils # Man Lymphocytes # (Manual) PT INR D-Dimer ABG pH 7.016 L POC ABG pO2 55.7 L ABG Hemoglobin ABG Oxyhemoglobin 81.6 L ABG Sodium 129.0 L ABG Potassium 5.0 H ABG Chloride ABG Glucose 157 H Sodium Potassium Chloride Carbon Dioxide BUN Creatinine Glucose POC Glucose 108 H Lactic Acid Calcium Phosphorus Ferritin AST ALT Ammonia Lactate Dehydrogenase Total Creatine Kinase CK-MB (CK-2) C-Reactive Protein Total Protein Albumin Arterial Blood Glucose 157 H Arterial Blood Ionized Calcium 3.9 L Urine WBC (Auto) > 182.0 H Hepatitis C Antibody 07/20/20 07/20/20 07/20/20 21:59 21:59 21:59 WBC RBC Hgb Hct MCV MCH Plt Count Lymph % (Auto) Lymph # (Auto) Baso # (Auto) Seg Neutrophils % Lymphocytes % (Manual) Seg Neutrophils # Seg Neutrophils # Man Lymphocytes # (Manual) PT INR D-Dimer 2098.49 H ABG pH POC ABG pO2 ABG Hemoglobin ABG Oxyhemoglobin ABG Sodium ABG Potassium ABG Chloride ABG Glucose Sodium Potassium Chloride Carbon Dioxide BUN Creatinine Glucose POC Glucose Lactic Acid Calcium Phosphorus Ferritin 1648.0 H AST ALT Ammonia Lactate Dehydrogenase 732 H Total Creatine Kinase CK-MB (CK-2) C-Reactive Protein 37.90 H Total Protein Albumin Arterial Blood Glucose Arterial Blood Ionized Calcium Urine WBC (Auto) Hepatitis C Antibody 07/20/20 07/21/20 07/21/20 23:35 01:56 04:00 WBC 15.1 H RBC 3.52 L Hgb Hct MCV 100 H MCH 33 H Plt Count Lymph % (Auto) Lymph # (Auto) Baso # (Auto) Seg Neutrophils % Lymphocytes % (Manual) 2.0 L Seg Neutrophils # Seg Neutrophils # Man 9.4 H Lymphocytes # (Manual) 0.3 L PT INR D-Dimer ABG pH POC ABG pO2 ABG Hemoglobin ABG Oxyhemoglobin ABG Sodium ABG Potassium ABG Chloride ABG Glucose Sodium Potassium 5.8 H Chloride 95.4 L Carbon Dioxide 17 L BUN 100 H Creatinine 6.8 H Glucose 61 L POC Glucose 138 H Lactic Acid Calcium 6.3 L Phosphorus Ferritin AST ALT Ammonia Lactate Dehydrogenase Total Creatine Kinase CK-MB (CK-2) C-Reactive Protein Total Protein Albumin Arterial Blood Glucose Arterial Blood Ionized Calcium Urine WBC (Auto) Hepatitis C Antibody 07/21/20 07/21/20 07/21/20 04:00 05:24 06:06 WBC RBC Hgb Hct MCV MCH Plt Count Lymph % (Auto) Lymph # (Auto) Baso # (Auto) Seg Neutrophils % Lymphocytes % (Manual) Seg Neutrophils # Seg Neutrophils # Man Lymphocytes # (Manual) PT INR D-Dimer ABG pH POC ABG pO2 ABG Hemoglobin ABG Oxyhemoglobin ABG Sodium ABG Potassium ABG Chloride ABG Glucose Sodium Potassium 6.1 H* Chloride 97.2 L Carbon Dioxide 21 L BUN 104 H Creatinine 6.7 H Glucose POC Glucose 121 H 124 H Lactic Acid Calcium 6.5 L Phosphorus Ferritin AST ALT Ammonia Lactate Dehydrogenase Total Creatine Kinase CK-MB (CK-2) C-Reactive Protein Total Protein Albumin Arterial Blood Glucose Arterial Blood Ionized Calcium Urine WBC (Auto) Hepatitis C Antibody 07/21/20 07/21/20 07/21/20 06:58 07:58 08:20 WBC RBC Hgb Hct MCV MCH Plt Count Lymph % (Auto) Lymph # (Auto) Baso # (Auto) Seg Neutrophils % Lymphocytes % (Manual) Seg Neutrophils # Seg Neutrophils # Man Lymphocytes # (Manual) PT INR D-Dimer ABG pH POC ABG pO2 ABG Hemoglobin ABG Oxyhemoglobin ABG Sodium ABG Potassium ABG Chloride ABG Glucose Sodium Potassium Chloride Carbon Dioxide BUN Creatinine Glucose POC Glucose 128 H 133 H Lactic Acid Calcium Phosphorus Ferritin AST ALT Ammonia Lactate Dehydrogenase Total Creatine Kinase 88791 H CK-MB (CK-2) C-Reactive Protein Total Protein Albumin Arterial Blood Glucose Arterial Blood Ionized Calcium Urine WBC (Auto) Hepatitis C Antibody 07/21/20 07/21/20 07/21/20 09:15 09:31 10:09 WBC RBC Hgb Hct MCV MCH Plt Count Lymph % (Auto) Lymph # (Auto) Baso # (Auto) Seg Neutrophils % Lymphocytes % (Manual) Seg Neutrophils # Seg Neutrophils # Man Lymphocytes # (Manual) PT INR D-Dimer ABG pH 7.239 L POC ABG pO2 70.1 L ABG Hemoglobin 11.4 L ABG Oxyhemoglobin 92.6 L ABG Sodium 135.2 L ABG Potassium 5.1 H ABG Chloride ABG Glucose 147 H Sodium Potassium Chloride Carbon Dioxide BUN Creatinine Glucose POC Glucose 129 H Lactic Acid Calcium Phosphorus Ferritin AST ALT Ammonia 24.0 L Lactate Dehydrogenase Total Creatine Kinase CK-MB (CK-2) C-Reactive Protein Total Protein Albumin Arterial Blood Glucose 147 H Arterial Blood Ionized Calcium 3.4 L Urine WBC (Auto) Hepatitis C Antibody 07/21/20 07/21/20 07/21/20 12:55 14:19 17:20 WBC RBC Hgb Hct MCV MCH Plt Count Lymph % (Auto) Lymph # (Auto) Baso # (Auto) Seg Neutrophils % Lymphocytes % (Manual) Seg Neutrophils # Seg Neutrophils # Man Lymphocytes # (Manual) PT INR D-Dimer ABG pH POC ABG pO2 ABG Hemoglobin ABG Oxyhemoglobin ABG Sodium ABG Potassium ABG Chloride ABG Glucose Sodium Potassium Chloride Carbon Dioxide 20 L BUN 88 H Creatinine 4.0 H Glucose 166 H POC Glucose 157 H 172 H Lactic Acid Calcium 6.0 L Phosphorus Ferritin AST ALT Ammonia Lactate Dehydrogenase Total Creatine Kinase CK-MB (CK-2) C-Reactive Protein Total Protein Albumin Arterial Blood Glucose Arterial Blood Ionized Calcium Urine WBC (Auto) Hepatitis C Antibody 07/21/20 07/21/20 07/21/20 17:30 20:59 23:59 WBC RBC Hgb Hct MCV MCH Plt Count Lymph % (Auto) Lymph # (Auto) Baso # (Auto) Seg Neutrophils % Lymphocytes % (Manual) Seg Neutrophils # Seg Neutrophils # Man Lymphocytes # (Manual) PT INR D-Dimer ABG pH 7.174 L POC ABG pO2 69.3 L ABG Hemoglobin 11.9 L ABG Oxyhemoglobin 91.0 L ABG Sodium 134.0 L ABG Potassium 5.4 H ABG Chloride ABG Glucose 60 L Sodium Potassium Chloride 110.0 H Carbon Dioxide 21 L BUN 72 H Creatinine 2.7 H Glucose 175 H POC Glucose 122 H Lactic Acid Calcium 5.6 L* Phosphorus Ferritin AST ALT Ammonia Lactate Dehydrogenase Total Creatine Kinase CK-MB (CK-2) C-Reactive Protein Total Protein Albumin Arterial Blood Glucose 60 L Arterial Blood Ionized Calcium 3.6 L Urine WBC (Auto) Hepatitis C Antibody 07/21/20 07/22/20 07/22/20 Unknown 02:00 02:03 WBC RBC Hgb Hct MCV MCH Plt Count Lymph % (Auto) Lymph # (Auto) Baso # (Auto) Seg Neutrophils % Lymphocytes % (Manual) Seg Neutrophils # Seg Neutrophils # Man Lymphocytes # (Manual) PT INR D-Dimer ABG pH POC ABG pO2 ABG Hemoglobin ABG Oxyhemoglobin ABG Sodium ABG Potassium ABG Chloride ABG Glucose Sodium 146 H Potassium Chloride 109.9 H Carbon Dioxide BUN 56 H Creatinine 1.6 H Glucose 125 H POC Glucose 113 H Lactic Acid Calcium 6.5 L D Phosphorus Ferritin AST ALT Ammonia Lactate Dehydrogenase Total Creatine Kinase CK-MB (CK-2) C-Reactive Protein Total Protein Albumin Arterial Blood Glucose Arterial Blood Ionized Calcium Urine WBC (Auto) 28.0 H Hepatitis C Antibody 07/22/20 07/22/20 07/22/20 05:00 06:27 09:44 WBC RBC 3.11 L Hgb Hct MCV 99 H MCH 34 H Plt Count 86 L Lymph % (Auto) Lymph # (Auto) Baso # (Auto) Seg Neutrophils % Lymphocytes % (Manual) Seg Neutrophils # Seg Neutrophils # Man Lymphocytes # (Manual) PT INR D-Dimer ABG pH POC ABG pO2 ABG Hemoglobin ABG Oxyhemoglobin ABG Sodium ABG Potassium ABG Chloride ABG Glucose Sodium 148 H Potassium Chloride 111.3 H Carbon Dioxide BUN 53 H Creatinine 1.4 H Glucose 135 H POC Glucose 122 H Lactic Acid Calcium 7.2 L Phosphorus Ferritin AST ALT Ammonia Lactate Dehydrogenase Total Creatine Kinase CK-MB (CK-2) C-Reactive Protein Total Protein Albumin Arterial Blood Glucose Arterial Blood Ionized Calcium Urine WBC (Auto) Hepatitis C Antibody 07/22/20 07/22/20 07/22/20 11:00 11:56 21:18 WBC RBC Hgb Hct MCV MCH Plt Count Lymph % (Auto) Lymph # (Auto) Baso # (Auto) Seg Neutrophils % Lymphocytes % (Manual) Seg Neutrophils # Seg Neutrophils # Man Lymphocytes # (Manual) PT INR D-Dimer ABG pH POC ABG pO2 73.5 L ABG Hemoglobin 11.1 L ABG Oxyhemoglobin ABG Sodium 145.8 H ABG Potassium ABG Chloride 114.0 H ABG Glucose 125 H Sodium Potassium Chloride Carbon Dioxide BUN Creatinine Glucose POC Glucose 126 H 126 H Lactic Acid Calcium Phosphorus Ferritin AST ALT Ammonia Lactate Dehydrogenase Total Creatine Kinase CK-MB (CK-2) C-Reactive Protein Total Protein Albumin Arterial Blood Glucose 125 H Arterial Blood Ionized Calcium 4.2 L Urine WBC (Auto) Hepatitis C Antibody 07/23/20 07/23/20 07/23/20 01:43 04:48 04:48 WBC 13.2 H RBC 3.47 L Hgb Hct MCV 99 H MCH 33 H Plt Count 98 L Lymph % (Auto) Lymph # (Auto) Baso # (Auto) Seg Neutrophils % Lymphocytes % (Manual) Seg Neutrophils # Seg Neutrophils # Man Lymphocytes # (Manual) PT INR D-Dimer ABG pH POC ABG pO2 ABG Hemoglobin ABG Oxyhemoglobin ABG Sodium ABG Potassium ABG Chloride ABG Glucose Sodium 155 H Potassium 3.1 L D Chloride 112.2 H Carbon Dioxide BUN 34 H Creatinine Glucose 143 H POC Glucose 146 H Lactic Acid Calcium 7.8 L Phosphorus Ferritin AST ALT Ammonia Lactate Dehydrogenase Total Creatine Kinase CK-MB (CK-2) C-Reactive Protein Total Protein Albumin Arterial Blood Glucose Arterial Blood Ionized Calcium Urine WBC (Auto) Hepatitis C Antibody 07/23/20 07/23/20 07/23/20 05:32 11:49 14:33 WBC RBC Hgb Hct MCV MCH Plt Count Lymph % (Auto) Lymph # (Auto) Baso # (Auto) Seg Neutrophils % Lymphocytes % (Manual) Seg Neutrophils # Seg Neutrophils # Man Lymphocytes # (Manual) PT INR D-Dimer ABG pH POC ABG pO2 ABG Hemoglobin ABG Oxyhemoglobin ABG Sodium ABG Potassium ABG Chloride ABG Glucose Sodium 157 H Potassium 3.5 L Chloride 115.0 H Carbon Dioxide 32 H BUN 34 H Creatinine Glucose 119 H POC Glucose 149 H 112 H Lactic Acid Calcium Phosphorus Ferritin AST ALT Ammonia Lactate Dehydrogenase Total Creatine Kinase CK-MB (CK-2) C-Reactive Protein Total Protein Albumin Arterial Blood Glucose Arterial Blood Ionized Calcium Urine WBC (Auto) Hepatitis C Antibody 07/23/20 07/23/20 07/23/20 17:33 17:33 17:33 WBC RBC Hgb Hct MCV MCH Plt Count Lymph % (Auto) Lymph # (Auto) Baso # (Auto) Seg Neutrophils % Lymphocytes % (Manual) Seg Neutrophils # Seg Neutrophils # Man Lymphocytes # (Manual) PT INR D-Dimer ABG pH POC ABG pO2 ABG Hemoglobin ABG Oxyhemoglobin ABG Sodium ABG Potassium ABG Chloride ABG Glucose Sodium Potassium Chloride Carbon Dioxide BUN Creatinine Glucose POC Glucose Lactic Acid Calcium Phosphorus 1.80 L Ferritin AST 158 H ALT 96 H Ammonia Lactate Dehydrogenase Total Creatine Kinase CK-MB (CK-2) C-Reactive Protein Total Protein 6.2 L Albumin 2.9 L Arterial Blood Glucose Arterial Blood Ionized Calcium Urine WBC (Auto) Hepatitis C Antibody Reactive A 07/24/20 07/24/20 07/24/20 02:17 05:20 05:29 WBC RBC Hgb Hct MCV MCH Plt Count Lymph % (Auto) Lymph # (Auto) Baso # (Auto) Seg Neutrophils % Lymphocytes % (Manual) Seg Neutrophils # Seg Neutrophils # Man Lymphocytes # (Manual) PT INR D-Dimer ABG pH POC ABG pO2 ABG Hemoglobin ABG Oxyhemoglobin ABG Sodium ABG Potassium ABG Chloride ABG Glucose Sodium 163 H* Potassium Chloride 118.6 H Carbon Dioxide BUN 33 H Creatinine Glucose 118 H POC Glucose 106 H 111 H Lactic Acid Calcium 7.9 L Phosphorus Ferritin AST ALT Ammonia Lactate Dehydrogenase Total Creatine Kinase CK-MB (CK-2) C-Reactive Protein Total Protein Albumin Arterial Blood Glucose Arterial Blood Ionized Calcium Urine WBC (Auto) Hepatitis C Antibody 07/24/20 07/24/20 07/24/20 08:00 11:52 14:43 WBC RBC Hgb Hct MCV MCH Plt Count Lymph % (Auto) Lymph # (Auto) Baso # (Auto) Seg Neutrophils % Lymphocytes % (Manual) Seg Neutrophils # Seg Neutrophils # Man Lymphocytes # (Manual) PT INR D-Dimer ABG pH POC ABG pO2 ABG Hemoglobin ABG Oxyhemoglobin ABG Sodium ABG Potassium ABG Chloride ABG Glucose Sodium 155 H Potassium 3.5 L Chloride 112.7 H Carbon Dioxide 32 H BUN 28 H Creatinine Glucose 125 H POC Glucose 109 H 118 H Lactic Acid Calcium 8.2 L Phosphorus Ferritin AST ALT Ammonia Lactate Dehydrogenase Total Creatine Kinase CK-MB (CK-2) C-Reactive Protein Total Protein Albumin Arterial Blood Glucose Arterial Blood Ionized Calcium Urine WBC (Auto) Hepatitis C Antibody 07/24/20 07/24/20 07/24/20 16:52 19:33 23:02 WBC RBC Hgb Hct MCV MCH Plt Count Lymph % (Auto) Lymph # (Auto) Baso # (Auto) Seg Neutrophils % Lymphocytes % (Manual) Seg Neutrophils # Seg Neutrophils # Man Lymphocytes # (Manual) PT INR D-Dimer ABG pH 7.523 H POC ABG pO2 76.4 L ABG Hemoglobin 10.3 L ABG Oxyhemoglobin ABG Sodium 151.2 H ABG Potassium 2.4 L ABG Chloride 111.0 H ABG Glucose 125 H Sodium Potassium Chloride Carbon Dioxide BUN Creatinine Glucose POC Glucose 111 H 127 H Lactic Acid Calcium Phosphorus Ferritin AST ALT Ammonia Lactate Dehydrogenase Total Creatine Kinase CK-MB (CK-2) C-Reactive Protein Total Protein Albumin Arterial Blood Glucose 125 H Arterial Blood Ionized Calcium 4.3 L Urine WBC (Auto) Hepatitis C Antibody 07/25/20 07/25/20 07/25/20 02:12 05:15 05:15 WBC 12.0 H RBC 3.11 L Hgb Hct MCV 99 H MCH 33 H Plt Count 77 L Lymph % (Auto) 9.5 L Lymph # (Auto) 1.1 L Baso # (Auto) Seg Neutrophils % 88.2 H Lymphocytes % (Manual) Seg Neutrophils # 10.6 H Seg Neutrophils # Man Lymphocytes # (Manual) PT INR D-Dimer ABG pH POC ABG pO2 ABG Hemoglobin ABG Oxyhemoglobin ABG Sodium ABG Potassium ABG Chloride ABG Glucose Sodium 152 H Potassium 2.6 L* D Chloride 109.5 H Carbon Dioxide 34 H BUN 21 H Creatinine 0.5 L Glucose 124 H POC Glucose 124 H Lactic Acid Calcium 7.7 L Phosphorus Ferritin AST ALT Ammonia Lactate Dehydrogenase Total Creatine Kinase CK-MB (CK-2) C-Reactive Protein Total Protein Albumin Arterial Blood Glucose Arterial Blood Ionized Calcium Urine WBC (Auto) Hepatitis C Antibody 07/25/20 07/25/20 07/25/20 05:42 14:35 14:35 WBC RBC Hgb Hct MCV MCH Plt Count Lymph % (Auto) Lymph # (Auto) Baso # (Auto) Seg Neutrophils % Lymphocytes % (Manual) Seg Neutrophils # Seg Neutrophils # Man Lymphocytes # (Manual) PT INR D-Dimer ABG pH POC ABG pO2 ABG Hemoglobin ABG Oxyhemoglobin ABG Sodium ABG Potassium ABG Chloride ABG Glucose Sodium 151 H Potassium 3.4 L D Chloride 109.7 H Carbon Dioxide 31 H BUN Creatinine 0.5 L Glucose POC Glucose 108 H Lactic Acid Calcium 7.7 L Phosphorus 1.70 L Ferritin AST ALT Ammonia Lactate Dehydrogenase Total Creatine Kinase CK-MB (CK-2) C-Reactive Protein Total Protein Albumin Arterial Blood Glucose Arterial Blood Ionized Calcium Urine WBC (Auto) Hepatitis C Antibody 07/25/20 07/25/20 07/26/20 18:29 21:07 04:00 WBC RBC Hgb Hct MCV MCH Plt Count Lymph % (Auto) Lymph # (Auto) Baso # (Auto) Seg Neutrophils % Lymphocytes % (Manual) Seg Neutrophils # Seg Neutrophils # Man Lymphocytes # (Manual) PT INR D-Dimer ABG pH POC ABG pO2 ABG Hemoglobin ABG Oxyhemoglobin ABG Sodium ABG Potassium ABG Chloride ABG Glucose Sodium 147 H 146 H Potassium 3.3 L D Chloride Carbon Dioxide 35 H BUN Creatinine 0.4 L 0.4 L Glucose 122 H 114 H POC Glucose 120 H Lactic Acid Calcium 7.5 L 7.3 L Phosphorus Ferritin AST 74 H ALT 79 H Ammonia Lactate Dehydrogenase Total Creatine Kinase CK-MB (CK-2) C-Reactive Protein Total Protein 5.0 L Albumin 2.5 L Arterial Blood Glucose Arterial Blood Ionized Calcium Urine WBC (Auto) Hepatitis C Antibody 07/26/20 Unknown WBC 12.6 H RBC 2.92 L Hgb 9.8 L Hct 29.3 L MCV 100 H MCH 34 H Plt Count 73 L Lymph % (Auto) Lymph # (Auto) Baso # (Auto) Seg Neutrophils % Lymphocytes % (Manual) Seg Neutrophils # Seg Neutrophils # Man Lymphocytes # (Manual) PT INR D-Dimer ABG pH POC ABG pO2 ABG Hemoglobin ABG Oxyhemoglobin ABG Sodium ABG Potassium ABG Chloride ABG Glucose Sodium Potassium Chloride Carbon Dioxide BUN Creatinine Glucose POC Glucose Lactic Acid Calcium Phosphorus Ferritin AST ALT Ammonia Lactate Dehydrogenase Total Creatine Kinase CK-MB (CK-2) C-Reactive Protein Total Protein Albumin Arterial Blood Glucose Arterial Blood Ionized Calcium Urine WBC (Auto) Hepatitis C Antibody
[2020-07-26] MEDS: INSULIN REGULAR, HUMAN 100 UNITS/1 ML SUB-Q SCH ×2 (11:59→18:59)
--- NOTE | 2020-07-26 12:07 | Progress Note ---
Assessment and Plan Impression: * Nonoliguric DOREEN secondary to multifactorial etiologies: prerenal component due to volume depletion vs ATN (sepsis) * Acute hypoxic respiratory failure * Sepsis * Klebsiella UTI * Acute encephelopathy * Uremia * Hypernatremia: free water deficit * Hyperkalemia->hypokalemia now: likely nutritional * Metabolic Alkalosis: likely contracted Plan: * Renal function improved with volume resuscitation. Peaked with creatinine 7.7->0.5->0.4 this AM over past week. No acute indication for renal replacement therapy at this time. Continue conservative management * Continue IVF D5W +KCl, agree with pulm to wean once on PPN * Will check urine K/creatinine if hypokalemia not improving despite repletion, hold off for now * Check urine chloride if alkalosis not improving, hold off for now * ?Possible withdrawal - note order for Ativan prn, on CIWA protocol * Abx per primary team * Pressors prn to maintain MAP>65 * Avoid potential nephrotoxins * Dose medications for renal function * AM labs Subjective Date of service: 07/26/20 Interval history: No acute issues noted, on Bipap Objective - Exam Narrative Exam: General appearance: well-developed, other (Bipap in place) EENT: ATNC Respiratory: Present: Ronchi Cardiology: regular, S1S2 Gastrointestinal: normal, no tenderness, no distended Integumentary: no rash, warm and dry Neurologic: other (agitated) Musculoskeletal: other (no edema) - Vital Signs Vital signs: Vital Signs - 12hr 07/26/20 07/26/20 07/26/20 01:00 02:00 03:00 Temperature Pulse Rate 75 77 81 Pulse Rate [ Bilateral Throughout] Pulse Rate [ From Monitor] Respiratory 25 H 28 H 37 H Rate Respiratory Rate [Bilateral Throughout] Blood Pressure 123/67 110/61 155/78 O2 Sat by Pulse 100 99 100 Oximetry 07/26/20 07/26/20 07/26/20 03:24 03:55 04:00 Temperature 98.9 F Pulse Rate 79 78 Pulse Rate [ 91 H Bilateral Throughout] Pulse Rate [ 79 From Monitor] Respiratory 30 H 33 H Rate Respiratory 30 H Rate [Bilateral Throughout] Blood Pressure 138/76 141/82 O2 Sat by Pulse 96 100 Oximetry 07/26/20 07/26/20 07/26/20 05:00 06:00 07:00 Temperature Pulse Rate 82 82 83 Pulse Rate [ Bilateral Throughout] Pulse Rate [ From Monitor] Respiratory 37 H 31 H 35 H Rate Respiratory Rate [Bilateral Throughout] Blood Pressure 149/78 133/69 131/79 O2 Sat by Pulse 100 100 100 Oximetry 07/26/20 07/26/20 07/26/20 07:48 08:00 09:00 Temperature 98 F Pulse Rate 75 80 78 Pulse Rate [ Bilateral Throughout] Pulse Rate [ 80 From Monitor] Respiratory 35 H 33 H 32 H Rate Respiratory Rate [Bilateral Throughout] Blood Pressure 120/78 121/82 111/81 O2 Sat by Pulse 100 100 100 Oximetry 07/26/20 07/26/20 07/26/20 10:00 11:00 11:58 Temperature Pulse Rate 86 83 90 Pulse Rate [ Bilateral Throughout] Pulse Rate [ From Monitor] Respiratory 38 H 44 H 40 H Rate Respiratory Rate [Bilateral Throughout] Blood Pressure 134/91 142/88 131/69 O2 Sat by Pulse 99 100 100 Oximetry - Lab 07/26/20 Unknown 07/26/20 04:00 Most recent lab results ABG pH 7.523 (7.320-7.450) H 07/24/20 19:33 ABG O2 Saturation 95.6 (0-100) 07/24/20 19:33 Calcium 7.3 mg/dL (8.4-10.2) L 07/26/20 04:00 Phosphorus 2.90 mg/dL (2.5-4.5) D 07/26/20 04:00 Magnesium 2.00 mg/dL (1.7-2.3) 07/26/20 04:00 Urine Creatinine < 4.2 mg/dL (0.1-20.0) 07/21/20 Unknown Urine Sodium 10 mmol/L 07/21/20 Unknown Medications & Allergies - Medications Allergies/Adverse Reactions: Allergies Iodine and Iodide Containing Produc Adverse Reaction (Verified 10/26/18 10:10) Rash Home Medications: Home Medications Medication Instructions Recorded Confirmed Last Taken Type Ondansetron [Zofran TAB] 4 mg PO Q8HR PRN #15 tablet 07/17/17 Unknown Rx Ibuprofen [Motrin 600 MG tab] 600 mg PO Q8H PRN #30 tablet 01/18/18 Unknown Rx Sulfamethoxazole/Trimethoprim 1 each PO BID 10 Days #20 tablet 01/18/18 Unknown Rx [Bactrim DS TAB] cephALEXin [Keflex] 500 mg PO Q12HR #20 capsule 01/18/18 Unknown Rx Famotidine [Pepcid] 20 mg PO BID #10 tablet 05/17/18 Unknown Rx Mag Hydrox/Aluminum Hyd/Simeth 15 ml PO QID #1 oral.susp 05/17/18 Unknown Rx [Maalox Advanced Suspension] Ondansetron [Zofran ODT TAB] 8 mg PO Q12HR #20 tab.rapdis 05/17/18 Unknown Rx Acetaminophen/Codeine [Tylenol 1 tab PO Q6H PRN #12 tab 10/26/18 Unknown Rx /Codeine # 3 tab] Clindamycin [Clindamycin CAP] 300 mg PO Q8H #21 cap 10/26/18 Unknown Rx Esomeprazole Magnesium [NexIUM] 40 mg PO QDAY 20 Days #20 06/04/19 Unknown Rx capsule. ALPRAZolam [Xanax TAB] 2 mg PO Q8H 07/23/20 07/23/20 Unknown History Carisoprodol [Soma] 350 mg PO Q6H 07/23/20 07/23/20 Unknown History Ezetimibe [Zetia] 10 mg PO DAILY 07/23/20 07/23/20 Unknown History Gabapentin [Neurontin] 600 mg PO Q6H 07/23/20 07/23/20 Unknown History HYDROcodone/APAP 5-325 1 tab Q6H 07/23/20 07/23/20 Unknown History SUMAtriptan SUCCINATE [Imitrex] 100 mg PO Q2H PRN 07/23/20 07/23/20 Unknown History Active Medications: Generic Name Dose Route Start Last Admin Trade Name Freq PRN Reason Stop Dose Admin Acetaminophen 650 mg 07/20/20 22:51 Acetaminophen 325 Mg/10.15 Ml Oral Liqd Unit Dose FEEDTUBE Q6H PRN Pain MILD(1-3)/Fever >100.5/HESS Albuterol/Ipratropium 1 ampul 07/20/20 23:00 07/26/20 07:51 Ipratropium/Albuterol Sulfate 3 Ml Ampul.Neb IH Not Given Q6HRT HONEY Alprazolam 2 mg 07/24/20 22:00 07/26/20 05:31 Alprazolam 1 Mg Tab PO 2 mg Q8HR HONEY Administration Lipase/Protease/Amylase 1 each 07/24/20 18:26 Lipase 10,500/Protease 25,000/Amylase 43,750 (Units) Dr [place] FEEDTUBE PRN PRN For Clogged Feeding Tube Dextrose 50 ml 07/26/20 10:10 Dextrose 50% In Water (25gm) 50 Ml Syringe IV Q30MIN PRN Hypoglycemia Protocol Famotidine 20 mg 07/20/20 23:00 07/26/20 09:14 Famotidine 20 Mg/2 Ml Inj IV 20 mg QAM HONEY Administration Haloperidol Lactate 5 mg 07/22/20 12:00 07/26/20 11:51 Haloperidol Lactate 5 Mg/1 Ml Inj IV 5 mg Q6H HONEY Administration Haloperidol Lactate 5 mg 07/23/20 17:24 Haloperidol Lactate 5 Mg/1 Ml Inj IV Q1HR PRN Unrespon. to mult. doses BZD's Hydralazine HCl 10 mg 07/22/20 23:25 07/24/20 15:02 Hydralazine 20 Mg/1 Ml Inj IV 10 mg Q6H PRN Administration Hypertension Folic Acid 1 mg/ Sodium 50.2 mls @ 200.8 mls/hr 07/23/20 18:00 07/26/20 09:14 Chloride IV 200 mls/hr QDAY HONEY Administration Thiamine HCl 100 mg/ Sodium 51 mls @ 100 mls/hr 07/23/20 18:00 07/26/20 09:14 Chloride IV 100 mls/hr QDAY HONEY Administration Ceftriaxone Sodium 1 gm in 50 mls @ 100 mls/hr 07/24/20 10:00 07/26/20 09:18 Rocephin/Ns 1 Gm/50 Ml IV 07/27/20 10:29 100 mls/hr Q24H HONEY Administration Protocol Potassium Chloride 20 meq/ 1,010 mls @ 125 mls/hr 07/25/20 16:00 07/25/20 23:54 Dextrose IV 125 mls/hr DIRECT HONEY Administration Insulin Human Regular 0 units 07/26/20 12:00 07/26/20 11:59 Insulin Regular, Human 100 Units/1 Ml SUB-Q Not Given Q6HR HONEY Protocol Lorazepam 2 mg 07/23/20 17:24 07/25/20 06:30 Lorazepam 2 Mg/Ml Vial IV 2 mg Q1HR PRN Administration CIWA-Ar 8-15 Lorazepam 4 mg 07/23/20 17:24 07/25/20 09:15 Lorazepam 2 Mg/Ml Vial IV 4 mg Q1HR PRN Administration CIWA-Ar 16-25 Lorazepam 4 mg 07/23/20 17:24 Lorazepam 2 Mg/Ml Vial IV Q15MIN PRN CIWA-Ar >25 Metoclopramide HCl 5 mg 07/20/20 22:51 Metoclopramide 10 Mg/2 Ml Inj IV Q6H PRN Nausea And Vomiting Simple Syrup 15 ml 07/24/20 18:26 Simple Syrup 15 Ml FEEDTUBE PRN PRN Hypoglycemia Simple Syrup 30 ml 07/24/20 18:26 Simple Syrup 15 Ml FEEDTUBE PRN PRN Hypoglycemia Sodium Bicarbonate 325 mg 07/24/20 18:26 Sodium Bicarbonate 325 Mg Tab FEEDTUBE PRN PRN For Clogged Feeding Tube Sodium Chloride 10 ml 07/21/20 10:00 07/26/20 09:19 Sodium Chloride 0.9% 10 Ml Flush Syringe IV 10 ml BID HONEY Administration Sodium Chloride 10 ml 07/20/20 22:51 07/25/20 05:01 Sodium Chloride 0.9% 10 Ml Flush Syringe IV 10 ml PRN PRN Administration LINE FLUSH
--- NOTE | 2020-07-26 13:00 | Progress Note ---
Assessment and Plan Cultures: 07/21/2020 COVID-19 PCR: Negative Hepatitis C antibody: Reactive 07/20/2020 blood culture: No growth 07/20/2020 urine culture: Klebsiella pneumoniae A/P: 65-year-old female with hepatitis C, hypertension, migraines admitted to the hospital with altered mental status, hypothermic, septic: #Sepsis: Likely secondary to UTI. UA with significant pyuria. Chest x-ray on admission revealed some interstitial edema, no dense air bronchograms as such. Remains on antibiotics. #Acute encephalopathy: Likely metabolic. Sodium was up to 163. #DOREEN: Resolved #Acute resp failure: on BiPAP. #Chronic hepatitis C: Antibody positive. Treatment status unknown. Can be worked up as an outpatient. Recs: -Continue IV ceftriaxone, D7 of abx overall, stop abx after today's dose Fabiano Sanchez MD, FACP [facility] ([facility]) O: [phone] F: [phone] Subjective Date of service: 07/26/20 Interval history: No fever. apparently was on HFNC, then got agitated and now back on BiPAP. Objective - Exam Narrative Exam: Physical Exam: Constitutional: Encephalopathic, on BiPAP Head, Ears, Nose: Normocephalic, atraumatic. External ears, nose normal Eyes: Conjunctivae/corneas clear. No icterus. No ptosis. Neck: Limited due to BiPAP Oral: BiPAP Cardiovascular: S1, S2 normal. Respiratory: Good air entry, clear to auscultation bilaterally GI: Soft, non-tender; bowel sounds normal. No peritoneal signs Musculoskeletal: No pedal edema, no cyanosis. Skin: No rash or abscess Hem/Lymphatic: No palpable cervical or supraclavicular nodes. No lymphangitis Psych: encephalopathic Neurological: encephalopathic - Constitutional Vitals: Vital Signs Temp Pulse Resp BP Pulse Ox 97.9 F 90 40 H 131/69 100 07/26/20 12:00 07/26/20 11:52 07/26/20 11:52 07/26/20 11:52 07/26/20 11:52 Temperature -Last 24 Hours Temperature 97.9 F Temperature 98 F Temperature 98.9 F Temperature 98.4 F Temperature 98.2 F Temperature 96 F - Labs CBC & Chem 7: 07/26/20 Unknown 07/26/20 04:00 Labs: Abnormal lab results 07/25/20 07/25/20 07/25/20 Range/Units 14:35 14:35 18:29 WBC (4.5-11.0) K/mm3 RBC (3.65-5.03) M/mm3 Hgb (10.1-14.3) gm/dl Hct (30.3-42.9) % MCV (79-97) fl MCH (28-32) pg Plt Count (140-440) K/mm3 Sodium 151 H 147 H (137-145) mmol/L Potassium 3.4 L D (3.6-5.0) mmol/L Chloride 109.7 H (98-107) mmol/L Carbon Dioxide 31 H (22-30) mmol/L Creatinine 0.5 L 0.4 L (0.6-1.2) mg/dL Glucose 122 H (65-100) mg/dL POC Glucose (70-105) mg/dL Calcium 7.7 L 7.5 L (8.4-10.2) mg/dL Phosphorus 1.70 L (2.5-4.5) mg/dL AST (5-40) units/L ALT (7-56) units/L Total Protein (6.3-8.2) g/dL Albumin (3.9-5) g/dL 07/25/20 07/26/20 07/26/20 Range/Units 21:07 04:00 Unknown WBC 12.6 H (4.5-11.0) K/mm3 RBC 2.92 L (3.65-5.03) M/mm3 Hgb 9.8 L (10.1-14.3) gm/dl Hct 29.3 L (30.3-42.9) % MCV 100 H (79-97) fl MCH 34 H (28-32) pg Plt Count 73 L (140-440) K/mm3 Sodium 146 H (137-145) mmol/L Potassium 3.3 L D (3.6-5.0) mmol/L Chloride (98-107) mmol/L Carbon Dioxide 35 H (22-30) mmol/L Creatinine 0.4 L (0.6-1.2) mg/dL Glucose 114 H (65-100) mg/dL POC Glucose 120 H (70-105) mg/dL Calcium 7.3 L (8.4-10.2) mg/dL Phosphorus (2.5-4.5) mg/dL AST 74 H (5-40) units/L ALT 79 H (7-56) units/L Total Protein 5.0 L (6.3-8.2) g/dL Albumin 2.5 L (3.9-5) g/dL
--- NOTE | 2020-07-26 14:25 | Progress Note ---
<MARIELLA MURRELL - Last Filed: 07/26/20 14:21> Assessment and Plan Assessment and plan: -Antibiotic therapy -Trend CBC, CMP -Trend CK -Pulmonary hygiene -ABGs as needed -PICC for PPN -Neuro consult -Check Folate and B12 DVT/GI prophylaxis: Heparin subcu, SCDs to bilateral lower extremities while in bed, PPI Dispo: ICU/ LTACH pending CODE STATUS: Full code The high probability of a clinically significant, sudden or life threatening deterioration of the [multi] system(s) required my full and direct attention, intervention and personal management. The aggregate critical care time was [35] minutes. This time is in addition to time spent performing reported procedures but includes the following: [x] Data Review and interpretation [x] Patient assessment and monitoring of vital signs [x] Documentation [x] Medication orders and management History Interval history: This is a 65-year-old female with hepatitis C, migraines and hypertension who had presented to the emergency department on 07/21 with altered mental status after being found on the floor by family members. Upon evaluation in the emergency department patient was found to be hypothermic and hypotensive with leukocytosis and acute kidney failure consistent with sepsis. Patient also had elevated D- dimer, metabolic encephalopathy, lactic acidosis, hyperkalemia and rhabdomyolysis. Patient was admitted to the hospital service with sepsis, UTI, DOREEN, rhabdomyolysis, acute respiratory failure, metabolic acidosis, acute metabolic encephalopathy. Nephrology, infectious disease and critical care co nsulted. Sepsis Urinary tract infection with Klebsiella pneumonia Rhabdomyolysis Hyperchloremia Leukocytosis Acute respiratory failure Acute metabolic encephalopathy Hypertension Hepatitis C Moderate pulmonary hypertension Thrombocytopenia 07/21: Patient received a total of 4 L normal saline, was started on vasopressin and remains on BiPAP. Patient was on Levophed and D5 normal saline and a bica rbonate drip. D5 normal saline was discontinued. We will obtain a p.m. BMP and serial BMPs. Patient was contacted and the patient is now on AND/DNR. 07/22: Patient received a total of 12 L IV bolus and has been weaned off of Levophed and vasopressin. Patient's kidney function has improved drastically. Patient has been started on scheduled Haldol and we obtained a baseline ECG.she was started on maintenance fluid overnight which was stopped today. Echocardiogram shows moderate pulmonary hypertension. [facility] would like to obtain a CT chest when more stable. RT is titrating BiPAP FiO2 as tolerated and we will assess for nutrition once off BiPAP.Patient now has hypernatremia, hyper chloremia and her BUN/creatinine has decreased to 53/1.4. 07/23/2020; patient is still on BiPAP, agitated and confused. Kidney function improved. Patient was on Haldol and Geodon which did not help. Put the patient on Ativan as needed this morning. I have a long discussion with her yesterday and she does not want any heroic measures to be done. Does not want NG tube to be placed. Patient is DNR/DNI. Patient has UTI and on cefepime. Patient prognosis is guarded. Patient has hypernatremia and placed on D5 0.2% normal saline but no improvement. Hypokalemia, repleted according to electrolyte protocol. Patient prognosis is very poor. Patient is gasping for air. 07/24/2020; patient is on BiPAP, agitated and confused. Sodium is trending up and 163 this morning despite the patient is on D5 W at 125. Family declined NG tube. Patient's family states patient is not alcoholic. UDS is positive for opioid. Patient has delirium and supportive care. On alcohol withdrawal eula col. Patient has UTI and continue with cefepime. Urine culture noted. 07/25: This morning the time my examination patient is on BiPAP therapy and has NG tube to tube feedings. Patient has hypomagnesemic which was repleted and severely hypokalemic which was also repleted. Patient has hypernatremia and her leukocytosis has improved. Urine culture speciated to Klebsiella and antibiotic regimen has been modified per ID. 07/26: PICC placement for PPN and RT is weaning BiPAP. At the time of my exam she was on 12/12 at 85% FiO2. Patient was hypokalemic today which was repleted. Patient remains hypokalemic in the HIT panel is pending. We will obtain a neurology customer relations consultant B12/folate. LTACH placement is pending per CM. Patient's mentation is better today and no acute events reported overnight. Hospitalist Physical - Constitutional Vitals: Temp Pulse Resp BP Pulse Ox 97.9 F 81 28 H 145/76 100 07/26/20 12:00 07/26/20 14:00 07/26/20 14:00 07/26/20 14:00 07/26/20 14:00 General appearance: Present: no acute distress - EENT Eyes: Present: PERRL ENT: dentition normal - Neck Neck: Present: normal ROM - Respiratory Respiratory effort: normal Respiratory: bilateral: CTA - Cardiovascular Rhythm: regular Heart Sounds: Present: S1 & S2. Absent: systolic murmur, diastolic murmur - Extremities Extremities: no ischemia, pulses intact, pulses symmetrical, No edema, normal temperature, normal color, Full ROM - Abdominal General gastrointestinal: soft, non-tender, non-distended, normal bowel sounds - Integumentary Integumentary: Present: clear, warm, dry - Psychiatric Psychiatric: cooperative - Neurologic Neurologic: CNII-XII intact, no focal deficits, moves all extremities - Allied Health Allied health notes reviewed: nursing HEART Score - HEART Score Troponin: Troponin T 0.026 ng/mL (0.00-0.029) 07/20/20 19:27 Results - Labs CBC & Chem 7: 07/26/20 Unknown 07/26/20 04:00 Labs: Laboratory Last Values WBC 12.6 K/mm3 (4.5-11.0) H 07/26/20 Unknown RBC 2.92 M/mm3 (3.65-5.03) L 07/26/20 Unknown Hgb 9.8 gm/dl (10.1-14.3) L 07/26/20 Unknown Hct 29.3 % (30.3-42.9) L 07/26/20 Unknown MCV 100 fl (79-97) H 07/26/20 Unknown MCH 34 pg (28-32) H 07/26/20 Unknown MCHC 34 % (30-34) 07/26/20 Unknown RDW 13.4 % (13.2-15.2) 07/26/20 Unknown Plt Count 73 K/mm3 (140-440) L 07/26/20 Unknown Lymph % (Auto) 9.5 % (13.4-35.0) L 07/25/20 05:15 [place] % (Auto) 2.0 % (0.0-7.3) 07/25/20 05:15 Eos % (Auto) 0.2 % (0.0-4.3) 07/25/20 05:15 Baso % (Auto) 0.1 % (0.0-1.8) 07/25/20 05:15 Lymph # (Auto) 1.1 K/mm3 (1.2-5.4) L 07/25/20 05:15 [place] # (Auto) 0.2 K/mm3 (0.0-0.8) 07/25/20 05:15 Eos # (Auto) 0.0 K/mm3 (0.0-0.4) 07/25/20 05:15 Baso # (Auto) 0.0 K/mm3 (0.0-0.1) 07/25/20 05:15 Add Manual Diff Complete 07/21/20 04:00 Total Counted 100 07/21/20 04:00 Seg Neutrophils % 88.2 % (40.0-70.0) H 07/25/20 05:15 Seg Neuts % (Manual) 62.0 % (40.0-70.0) 07/21/20 04:00 Band Neutrophils % 32.0 % 07/21/20 04:00 Lymphocytes % (Manual) 2.0 % (13.4-35.0) L 07/21/20 04:00 Monocytes % (Manual) 4.0 % (0.0-7.3) 07/21/20 04:00 Nucleated RBC % Not Reportable 07/21/20 04:00 Seg Neutrophils # 10.6 K/mm3 (1.8-7.7) H 07/25/20 05:15 Seg Neutrophils # Man 9.4 K/mm3 (1.8-7.7) H 07/21/20 04:00 Band Neutrophils # 4.8 K/mm3 07/21/20 04:00 Lymphocytes # (Manual) 0.3 K/mm3 (1.2-5.4) L 07/21/20 04:00 Abs React Lymphs (Man) 0.0 K/mm3 07/21/20 04:00 Monocytes # (Manual) 0.6 K/mm3 (0.0-0.8) 07/21/20 04:00 Eosinophils # (Manual) 0.0 K/mm3 (0.0-0.4) 07/21/20 04:00 Basophils # (Manual) 0.0 K/mm3 (0.0-0.1) 07/21/20 04:00 Metamyelocytes # 0.0 K/mm3 07/21/20 04:00 Myelocytes # 0.0 K/mm3 07/21/20 04:00 Promyelocytes # 0.0 K/mm3 07/21/20 04:00 Blast Cells # 0.0 K/mm3 07/21/20 04:00 WBC Morphology Not Reportable 07/21/20 04:00 Hypersegmented Neuts Not Reportable 07/21/20 04:00 Hyposegmented Neuts Not Reportable 07/21/20 04:00 Hypogranular Neuts Not Reportable 07/21/20 04:00 Smudge Cells Not Reportable 07/21/20 04:00 Toxic Granulation Not Reportable 07/21/20 04:00 Toxic Vacuolation Not Reportable 07/21/20 04:00 Dohle Bodies Not Reportable 07/21/20 04:00 Pelger-Huet Anomaly Not Reportable 07/21/20 04:00 Elia Rods Not Reportable 07/21/20 04:00 Platelet Estimate Consistent w auto 07/21/20 04:00 Clumped Platelets Not Reportable 07/21/20 04:00 Plt Clumps, EDTA Not Reportable 07/21/20 04:00 Large Platelets Not Reportable 07/21/20 04:00 Giant Platelets Not Reportable 07/21/20 04:00 Platelet Satelliting Not Reportable 07/21/20 04:00 Plt Morphology Comment Not Reportable 07/21/20 04:00 RBC Morphology Not Reportable 07/21/20 04:00 Dimorphic RBCs Not Reportable 07/21/20 04:00 Polychromasia Not Reportable 07/21/20 04:00 Hypochromasia Not Reportable 07/21/20 04:00 Poikilocytosis Not Reportable 07/21/20 04:00 Anisocytosis Not Reportable 07/21/20 04:00 Microcytosis Not Reportable 07/21/20 04:00 Macrocytosis Not Reportable 07/21/20 04:00 Spherocytes Not Reportable 07/21/20 04:00 Pappenheimer Bodies Not Reportable 07/21/20 04:00 Sickle Cells Not Reportable 07/21/20 04:00 Target Cells Not Reportable 07/21/20 04:00 Tear Drop Cells Not Reportable 07/21/20 04:00 Ovalocytes Not Reportable 07/21/20 04:00 Helmet Cells Not Reportable 07/21/20 04:00 [place] Bodies Not Reportable 07/21/20 04:00 Erwin Rings Not Reportable 07/21/20 04:00 Lorri Cells 1+ 07/21/20 04:00 Bite Cells Not Reportable 07/21/20 04:00 Crenated Cell Not Reportable 07/21/20 04:00 Elliptocytes Not Reportable 07/21/20 04:00 Acanthocytes (Spur) Not Reportable 07/21/20 04:00 Rouleaux Not Reportable 07/21/20 04:00 Hemoglobin C Crystals Not Reportable 07/21/20 04:00 Schistocytes Not Reportable 07/21/20 04:00 Malaria parasites Not Reportable 07/21/20 04:00 Junior Bodies Not Reportable 07/21/20 04:00 Hem Pathologist Commnt No 07/21/20 04:00 PT 20.1 Sec. (12.2-14.9) H 07/20/20 19:32 INR 1.72 (0.87-1.13) H 07/20/20 19:32 APTT 33.7 Sec. (24.2-36.6) 07/20/20 19:32 D-Dimer 2098.49 ng/mlDDU (0-234) H 07/20/20 21:59 ABG pH 7.523 (7.320-7.450) H 07/24/20 19:33 POC ABG pCO2 41.7 mmHg (32.0-48.0) 07/24/20 19:33 POC ABG pO2 76.4 mmHg (83-108) L 07/24/20 19:33 POC ABG HCO3 33.5 07/24/20 19:33 ABG O2 Saturation 95.6 (0-100) 07/24/20 19:33 POC ABG Base Excess 9.8 07/24/20 19:33 ABG Hemoglobin 10.3 (12.0-17.5) L 07/24/20 19:33 ABG Oxyhemoglobin 94.5 (94-98) 07/24/20 19:33 ABG Methemoglobin 0.3 (0.0-1.5) 07/24/20 19:33 ABG Sodium 151.2 mmol/L (136.0-145.0) H 07/24/20 19:33 ABG Potassium 2.4 mmol/L (3.40-4.50) L 07/24/20 19:33 ABG Chloride 111.0 mmol/L (98-107) H 07/24/20 19:33 ABG Glucose 125 mg/dL (65-95) H 07/24/20 19:33 Carboxyhemoglobin 0.8 (0.5-1.5) 07/24/20 19:33 FiO2 % 90 07/24/20 19:33 Sodium 146 mmol/L (137-145) H 07/26/20 04:00 Potassium 3.3 mmol/L (3.6-5.0) L D 07/26/20 04:00 Chloride 105.2 mmol/L (98-107) 07/26/20 04:00 Carbon Dioxide 35 mmol/L (22-30) H 07/26/20 04:00 Anion Gap 9 mmol/L 07/26/20 04:00 BUN 14 mg/dL (7-17) 07/26/20 04:00 Creatinine 0.4 mg/dL (0.6-1.2) L 07/26/20 04:00 Estimated GFR > 60 ml/min 07/26/20 04:00 BUN/Creatinine Ratio 35 % 07/26/20 04:00 Glucose 114 mg/dL (65-100) H 07/26/20 04:00 POC Glucose 99 mg/dL (70-105) 07/26/20 11:50 Lactic Acid 1.90 mmol/L (0.7-2.0) 07/20/20 21:59 Calcium 7.3 mg/dL (8.4-10.2) L 07/26/20 04:00 Phosphorus 2.90 mg/dL (2.5-4.5) D 07/26/20 04:00 Magnesium 2.00 mg/dL (1.7-2.3) 07/26/20 04:00 Ferritin 1648.0 ng/mL (10.0-200.0) H 07/20/20 21:59 Total Bilirubin 0.40 mg/dL (0.1-1.2) 07/26/20 04:00 Direct Bilirubin < 0.2 mg/dL (0-0.2) 07/23/20 17:33 Indirect Bilirubin 0.3 mg/dL 07/23/20 17:33 AST 74 units/L (5-40) H 07/26/20 04:00 ALT 79 units/L (7-56) H 07/26/20 04:00 Alkaline Phosphatase 101 units/L (35-129) 07/26/20 04:00 Ammonia 39.0 umol/L (25-60) 07/23/20 17:33 Lactate Dehydrogenase 732 units/L (91-180) H 07/20/20 21:59 Total Creatine Kinase 22684 units/L (30-135) H 07/21/20 08:20 CK-MB (CK-2) 289.0 ng/mL (0.0-4.0) H 07/20/20 19: CK-MB (CK-2) Rel Index 2.0 (0-4) 07/20/20 19: Troponin T 0.026 ng/mL (0.00-0.029) 07/20/20 19: C-Reactive Protein 37.90 mg/dL (0.00-1.30) H 07/20/20 21:59 Total Protein 5.0 g/dL (6.3-8.2) L 07/26/20 04:00 Albumin 2.5 g/dL (3.9-5) L 07/26/20 04:00 Albumin/Globulin Ratio 1.0 % 07/26/20 04:00 Procalcitonin 40.67 ng/mL (<0.15) 07/20/20 21:59 TSH 0.454 mlU/mL (0.270-4.200) 07/20/20 19: Free T4 0.87 ng/dL (0.76-1.46) 07/20/20 19: Arterial Blood Glucose 125 mg/dL (65-95) H 07/24/20 19:33 Arterial Blood Ionized Calcium 4.3 mg/dL (4.6-5.3) L 07/24/20 19:33 Urine Color Yellow (Yellow) 07/21/20 Unknown Urine Turbidity Cloudy (Clear) 07/21/20 Unknown Urine pH 5.0 (5.0-7.0) 07/21/20 Unknown Ur Specific [place] 1.013 (1.003-1.030) 07/21/20 Unknown Urine Protein 30 mg/dl mg/dL (Negative) 07/21/20 Unknown Urine Glucose (UA) Neg mg/dL (Negative) 07/21/20 Unknown Urine Ketones Neg mg/dL (Negative) 07/21/20 Unknown Urine Blood Lg (Negative) 07/21/20 Unknown Urine Nitrite Neg (Negative) 07/21/20 Unknown Urine Bilirubin Neg (Negative) 07/21/20 Unknown Urine Urobilinogen < 2.0 mg/dL (<2.0) 07/21/20 Unknown Ur Leukocyte Esterase Sm (Negative) 07/21/20 Unknown Urine WBC (Auto) 28.0 /HPF (0.0-6.0) H 07/21/20 Unknown Urine RBC (Auto) 89.0 /HPF (0.0-6.0) 07/21/20 Unknown U Epithel Cells (Auto) 1.0 /HPF (0-13.0) 07/21/20 Unknown Urine WBC Clumps 2+ /HPF 07/21/20 Unknown Hyaline Casts 9 /LPF 07/21/20 Unknown Urine Mucus Few /HPF 07/21/20 Unknown Urine Yeast (Budding) 3+ /HPF 07/20/20 19:52 Urine Eosinophils None seen (None Seen) 07/21/20 Unknown Urine Creatinine < 4.2 mg/dL (0.1-20.0) 07/21/20 Unknown Urine Sodium 10 mmol/L 07/21/20 Unknown Random Vancomycin 4.7 ug/mL (0-40.0) 07/22/20 06:27 Urine Opiates Screen Positive 07/20/20 19:52 Urine Methadone Screen Negative 07/20/20 19:52 Ur Barbiturates Screen Negative 07/20/20 19:52 Ur Phencyclidine Scrn Negative 07/20/20 19:52 Ur Amphetamines Screen Negative 07/20/20 19:52 U Benzodiazepines Scrn Positive 07/20/20 19:52 Urine Cocaine Screen Negative 07/20/20 19:52 U Marijuana (THC) Screen Negative 07/20/20 19:52 Drugs of Abuse Note Disclamer 07/20/20 19:52 Complement C3 106 mg/dL (83-193) 07/21/20 09:56 Complement C4 21 mg/dL (15-57) 07/21/20 09:56 Coronavirus (PCR) Negative (Negative) 07/21/20 08:20 Hepatitis A IgM Ab Non-reactive (NonReactive) 07/23/20 17:33 Hep Bs Antigen Non-reactive (Negative) 07/23/20 17:33 Hep B Core IgM Ab Non-reactive (NonReactive) 07/23/20 17:33 Hepatitis C Antibody Reactive (NonReactive) A 07/23/20 17:33 Blood Type O POSITIVE 07/20/20 23:15 Antibody Screen Negative 07/20/20 23:15 Microbiology: Microbiology 07/20/20 19:32 Peripheral/Venous Blood Culture - Final NO GROWTH AFTER 5 DAYS 07/20/20 19:27 Peripheral/Venous Blood Culture - Final NO GROWTH AFTER 5 DAYS Russell/IV: Voiding Method Indwelling Catheter Active Medications - Current Medications Current Medications: Generic Name Dose Route Start Last Admin Trade Name Freq PRN Reason Stop Dose Admin Acetaminophen 650 mg 07/20/20 22:51 Acetaminophen 325 Mg/10.15 Ml Oral Liqd Unit Dose FEEDTUBE Q6H PRN Pain MILD(1-3)/Fever >100.5/HESS Albuterol/Ipratropium 1 ampul 07/20/20 23:00 07/26/20 07:51 Ipratropium/Albuterol Sulfate 3 Ml Ampul.Neb IH Not Given Q6HRT HONEY Alprazolam 2 mg 07/24/20 22:00 07/26/20 13:41 Alprazolam 1 Mg Tab PO 2 mg Q8HR HONEY Administration Lipase/Protease/Amylase 1 each 07/24/20 18:26 Lipase 10,500/Protease 25,000/Amylase 43,750 (Units) Dr [place] FEEDTUBE PRN PRN For Clogged Feeding Tube Dextrose 50 ml 07/26/20 10:10 Dextrose 50% In Water (25gm) 50 Ml Syringe IV Q30MIN PRN Hypoglycemia Protocol Famotidine 20 mg 07/20/20 23:00 07/26/20 09:14 Famotidine 20 Mg/2 Ml Inj IV 20 mg QAM HONEY Administration Haloperidol Lactate 5 mg 07/22/20 12:00 07/26/20 11:51 Haloperidol Lactate 5 Mg/1 Ml Inj IV 5 mg Q6H HONEY Administration Haloperidol Lactate 5 mg 07/23/20 17:24 Haloperidol Lactate 5 Mg/1 Ml Inj IV Q1HR PRN Unrespon. to mult. doses BZD's Hydralazine HCl 10 mg 07/22/20 23:25 07/24/20 15:02 Hydralazine 20 Mg/1 Ml Inj IV 10 mg Q6H PRN Administration Hypertension Folic Acid 1 mg/ Sodium 50.2 mls @ 200.8 mls/hr 07/23/20 18:00 07/26/20 09:14 Chloride IV 200 mls/hr QDAY HONEY Administration Thiamine HCl 100 mg/ Sodium 51 mls @ 100 mls/hr 07/23/20 18:00 07/26/20 09:14 Chloride IV 100 mls/hr QDAY HONEY Administration Ceftriaxone Sodium 1 gm in 50 mls @ 100 mls/hr 07/24/20 10:00 07/26/20 09:18 Rocephin/Ns 1 Gm/50 Ml IV 07/27/20 10:29 100 mls/hr Q24H HONEY Administration Protocol Potassium Chloride 20 meq/ 1,010 mls @ 125 mls/hr 07/25/20 16:00 07/25/20 2 3:54 Dextrose IV 125 mls/hr DIRECT HONEY Administration Amino Acids 2,000 mls @ 75 mls/hr 07/26/20 20:00 Clinimix 4.25%-10% Solution IV 07/27/20 19:59 ONCE HONEY Insulin Human Regular 0 units 07/26/20 12:00 07/26/20 11:59 Insulin Regular, Human 100 Units/1 Ml SUB-Q Not Given Q6HR HONEY Protocol Lorazepam 2 mg 07/23/20 17:24 07/25/20 06:30 Lorazepam 2 Mg/Ml Vial IV 2 mg Q1HR PRN Administration CIWA-Ar 8-15 Lorazepam 4 mg 07/23/20 17:24 07/25/20 09:15 Lorazepam 2 Mg/Ml Vial IV 4 mg Q1HR PRN Administration CIWA-Ar 16-25 Lorazepam 4 mg 07/23/20 17:24 Lorazepam 2 Mg/Ml Vial IV Q15MIN PRN CIWA-Ar >25 Metoclopramide HCl 5 mg 07/20/20 22:51 Metoclopramide 10 Mg/2 Ml Inj IV Q6H PRN Nausea And Vomiting Simple Syrup 15 ml 07/24/20 18:26 Simple Syrup 15 Ml FEEDTUBE PRN PRN Hypoglycemia Simple Syrup 30 ml 07/24/20 18:26 Simple Syrup 15 Ml FEEDTUBE PRN PRN Hypoglycemia Sodium Bicarbonate 325 mg 07/24/20 18:26 Sodium Bicarbonate 325 Mg Tab FEEDTUBE PRN PRN For Clogged Feeding Tube Sodium Chloride 10 ml 07/21/20 10:00 07/26/20 09:19 Sodium Chloride 0.9% 10 Ml Flush Syringe IV 10 ml BID HONEY Administration Sodium Chloride 10 ml 07/20/20 22:51 07/25/20 05:01 Sodium Chloride 0.9% 10 Ml Flush Syringe IV 10 ml PRN PRN Administration LINE FLUSH Nutrition/Malnutrition Assess - Dietary Evaluation Nutrition/Malnutrition Findings: Nutrition Notes Start: 07/22/20 12:24 Freq: Status: Active Protocol: Document 07/26/20 12:35 CW (Rec: 07/26/20 12:46 CW [id number]) Nutrition Notes Initial or Follow up Reassessment Current Diagnosis Acute Kidney Injury,Sepsis, Hypertension Other Pertinent Diagnosis Hep C, AMS, UTI, Encephalopathy, dehydration Current Diet TPN - Clinam[facility] Labs/Tests Na 146 K 3.3 BUN 14 Cr 0.4 BG 114 phos 2.9 Ca 7.3 Mg 2 Pertinent Medications Thiamine Folic Acid KCl 40 mEq KPO4 30 mmol D5w at 75ml/hr Height 5 ft 3 in Weight 53 kg Addy Body Weight (kg) 52.27 BMI 20.7 Weight change and time frame Stable at this time Weight Status Underweight Subjective/Other Information MD culst for TPN. PICC line was placed today. Clinamix w/ out electrolytes faxed to pharmacy at 1221. bIPAP remains running continously. Percent of energy/protein needs met: 0%/0% Burn Absent Trauma Absent GI Symptoms None Current % PO Negligible Minimum of two criteria No physical signs of malnutrition #1 Nutrition Diagnosis Inadequate oral intake Diagnosis Progress(for reassessment Continues documentation) Is patient on ventilator? No Is Patient Ambulatory and/or Out of Bed No REE-([facility]-confined to bed) 1258.560 Kcal/Kg value to use for calculation 30 Approximate Energy Requirements Using 1590 kcal/Kg Calculation Used for Recommendations Kcal/kg Additional Notes Protein needs are 64-106g (1.2 -2g/kg) Fluid needs are 1ml/kcal Nutrition Intervention Change Diet Order: TPN - [facility] Nutrition Support: Clinamix at 75ml/hr. AA4.25% D10%; Osmality at 964. Kcal 929 Protein (gm) 75 Carbohydrates (gm) 185 Fat (gm) 0 Fluid (mL) 1,800 Goal #1 Initiate PN and tolerate Anticipated Discharge Needs: unable to determine at this time Follow-Up By: 07/27/20 Additional Comments F/U PN start, tolerance, K labs <CONCHITA STEELE - Last Filed: 07/27/20 07:19> Assessment and Plan Assessment and plan: I saw and evaluated the patient. I agree with the findings and the plan of care as documented in the Nurse Practitioner's~note, with the following corrections and additions. Hospitalist Physical - Constitutional Vitals: Temp Pulse Resp BP Pulse Ox 98.9 F 105 H 25 H 156/81 99 07/27/20 04:00 07/27/20 07:00 07/27/20 07:00 07/27/20 07:00 07/27/20 07:00 HEART Score - HEART Score Troponin: Troponin T 0.026 ng/mL (0.00-0.029) 07/20/20 19:27 Results - Labs CBC & Chem 7: 07/27/20 Unknown 07/27/20 04:00 Labs: Laboratory Last Values WBC 11.2 K/mm3 (4.5-11.0) H 07/27/20 Unknown RBC 3.02 M/mm3 (3.65-5.03) L 07/27/20 Unknown Hgb 10.1 gm/dl (10.1-14.3) 07/27/20 Unknown Hct 30.1 % (30.3-42.9) L 07/27/20 Unknown MCV 100 fl (79-97) H 07/27/20 Unknown MCH 33 pg (28-32) H 07/27/20 Unknown MCHC 33 % (30-34) 07/27/20 Unknown RDW 13.3 % (13.2-15.2) 07/27/20 Unknown Plt Count 77 K/mm3 (140-440) L 07/27/20 Unknown Lymph % (Auto) 9.5 % (13.4-35.0) L 07/25/20 05:15 [place] % (Auto) 2.0 % (0.0-7.3) 07/25/20 05:15 Eos % (Auto) 0.2 % (0.0-4.3) 07/25/20 05:15 Baso % (Auto) 0.1 % (0.0-1.8) 07/25/20 05:15 Lymph # (Auto) 1.1 K/mm3 (1.2-5.4) L 07/25/20 05:15 [place] # (Auto) 0.2 K/mm3 (0.0-0.8) 07/25/20 05:15 Eos # (Auto) 0.0 K/mm3 (0.0-0.4) 07/25/20 05:15 Baso # (Auto) 0.0 K/mm3 (0.0-0.1) 07/25/20 05:15 Add Manual Diff Complete 07/21/20 04:00 Total Counted 100 07/21/20 04:00 Seg Neutrophils % 88.2 % (40.0-70.0) H 07/25/20 05:15 Seg Neuts % (Manual) 62.0 % (40.0-70.0) 07/21/20 04:00 Band Neutrophils % 32.0 % 07/21/20 04:00 Lymphocytes % (Manual) 2.0 % (13.4-35.0) L 07/21/20 04:00 Monocytes % (Manual) 4.0 % (0.0-7.3) 07/21/20 04:00 Nucleated RBC % Not Reportable 07/21/20 04:00 Seg Neutrophils # 10.6 K/mm3 (1.8-7.7) H 07/25/20 05:15 Seg Neutrophils # Man 9.4 K/mm3 (1.8-7.7) H 07/21/20 04:00 Band Neutrophils # 4.8 K/mm3 07/21/20 04:00 Lymphocytes # (Manual) 0.3 K/mm3 (1.2-5.4) L 07/21/20 04:00 Abs React Lymphs (Man) 0.0 K/mm3 07/21/20 04:00 Monocytes # (Manual) 0.6 K/mm3 (0.0-0.8) 07/21/20 04:00 Eosinophils # (Manual) 0.0 K/mm3 (0.0-0.4) 07/21/20 04:00 Basophils # (Manual) 0.0 K/mm3 (0.0-0.1) 07/21/20 04:00 Metamyelocytes # 0.0 K/mm3 07/21/20 04:00 Myelocytes # 0.0 K/mm3 07/21/20 04:00 Promyelocytes # 0.0 K/mm3 07/21/20 04:00 Blast Cells # 0.0 K/mm3 07/21/20 04:00 WBC Morphology Not Reportable 07/21/20 04:00 Hypersegmented Neuts Not Reportable 07/21/20 04:00 Hyposegmented Neuts Not Reportable 07/21/20 04:00 Hypogranular Neuts Not Reportable 07/21/20 04:00 Smudge Cells Not Reportable 07/21/20 04:00 Toxic Granulation Not Reportable 07/21/20 04:00 Toxic Vacuolation Not Reportable 07/21/20 04:00 Dohle Bodies Not Reportable 07/21/20 04:00 Pelger-Huet Anomaly Not Reportable 07/21/20 04:00 Elia Rods Not Reportable 07/21/20 04:00 Platelet Estimate Consistent w auto 07/21/20 04:00 Clumped Platelets Not Reportable 07/21/20 04:00 Plt Clumps, EDTA Not Reportable 07/21/20 04:00 Large Platelets Not Reportable 07/21/20 04:00 Giant Platelets Not Reportable 07/21/20 04:00 Platelet Satelliting Not Reportable 07/21/20 04:00 Plt Morphology Comment Not Reportable 07/21/20 04:00 RBC Morphology Not Reportable 07/21/20 04:00 Dimorphic RBCs Not Reportable 07/21/20 04:00 Polychromasia Not Reportable 07/21/20 04:00 Hypochromasia Not Reportable 07/21/20 04:00 Poikilocytosis Not Reportable 07/21/20 04:00 Anisocytosis Not Reportable 07/21/20 04:00 Microcytosis Not Reportable 07/21/20 04:00 Macrocytosis Not Reportable 07/21/20 04:00 Spherocytes Not Reportable 07/21/20 04:00 Pappenheimer Bodies Not Reportable 07/21/20 04:00 Sickle Cells Not Reportable 07/21/20 04:00 Target Cells Not Reportable 07/21/20 04:00 Tear Drop Cells Not Reportable 07/21/20 04:00 Ovalocytes Not Reportable 07/21/20 04:00 Helmet Cells Not Reportable 07/21/20 04:00 [place] Bodies Not Reportable 07/21/20 04:00 Erwin Rings Not Reportable 07/21/20 04:00 Lorri Cells 1+ 07/21/20 04:00 Bite Cells Not Reportable 07/21/20 04:00 Crenated Cell Not Reportable 07/21/20 04:00 Elliptocytes Not Reportable 07/21/20 04:00 Acanthocytes (Spur) Not Reportable 07/21/20 04:00 Rouleaux Not Reportable 07/21/20 04:00 Hemoglobin C Crystals Not Reportable 07/21/20 04:00 Schistocytes Not Reportable 07/21/20 04:00 Malaria parasites Not Reportable 07/21/20 04:00 Junior Bodies Not Reportable 07/21/20 04:00 Hem Pathologist Commnt No 07/21/20 04:00 PT 20.1 Sec. (12.2-14.9) H 07/20/20 19:32 INR 1.72 (0.87-1.13) H 07/20/20 19:32 APTT 33.7 Sec. (24.2-36.6) 07/20/20 19:32 D-Dimer 2098.49 ng/mlDDU (0-234) H 07/20/20 21:59 ABG pH 7.523 (7.320-7.450) H 07/24/20 19:33 POC ABG pCO2 41.7 mmHg (32.0-48.0) 07/24/20 19:33 POC ABG pO2 76.4 mmHg (83-108) L 07/24/20 19:33 POC ABG HCO3 33.5 07/24/20 19:33 ABG O2 Saturation 95.6 (0-100) 07/24/20 19:33 POC ABG Base Excess 9.8 07/24/20 19:33 ABG Hemoglobin 10.3 (12.0-17.5) L 07/24/20 19:33 ABG Oxyhemoglobin 94.5 (94-98) 07/24/20 19:33 ABG Methemoglobin 0.3 (0.0-1.5) 07/24/20 19:33 ABG Sodium 151.2 mmol/L (136.0-145.0) H 07/24/20 19:33 ABG Potassium 2.4 mmol/L (3.40-4.50) L 07/24/20 19:33 ABG Chloride 111.0 mmol/L (98-107) H 07/24/20 19:33 ABG Glucose 125 mg/dL (65-95) H 07/24/20 19:33 Carboxyhemoglobin 0.8 (0.5-1.5) 07/24/20 19:33 FiO2 % 90 07/24/20 19:33 Sodium 142 mmol/L (137-145) 07/27/20 04:00 Potassium 3.2 mmol/L (3.6-5.0) L 07/27/20 04:00 Chloride 99.3 mmol/L (98-107) 07/27/20 04:00 Carbon Dioxide 37 mmol/L (22-30) H 07/27/20 04:00 Anion Gap 9 mmol/L 07/27/20 04:00 BUN 11 mg/dL (7-17) 07/27/20 04:00 Creatinine 0.3 mg/dL (0.6-1.2) L 07/27/20 04:00 Estimated GFR > 60 ml/min 07/27/20 04:00 BUN/Creatinine Ratio 37 % 07/27/20 04:00 Glucose 120 mg/dL (65-100) H 07/27/20 04:00 POC Glucose 123 mg/dL (70-105) H 07/27/20 05:17 Lactic Acid 1.90 mmol/L (0.7-2.0) 07/20/20 21:59 Calcium 7.4 mg/dL (8.4-10.2) L 07/27/20 04:00 Phosphorus 2.70 mg/dL (2.5-4.5) 07/27/20 04:00 Magnesium 1.30 mg/dL (1.7-2.3) L 07/27/20 04:00 Ferritin 1648.0 ng/mL (10.0-200.0) H 07/20/20 21:59 Total Bilirubin 0.40 mg/dL (0.1-1.2) 07/26/20 04:00 Direct Bilirubin < 0.2 mg/dL (0-0.2) 07/23/20 17:33 Indirect Bilirubin 0.3 mg/dL 07/23/20 17:33 AST 74 units/L (5-40) H 07/26/20 04:00 ALT 79 units/L (7-56) H 07/26/20 04:00 Alkaline Phosphatase 101 units/L (35-129) 07/26/20 04:00 Ammonia 39.0 umol/L (25-60) 07/23/20 17:33 Lactate Dehydrogenase 732 units/L (91-180) H 07/20/20 21:59 Total Creatine Kinase 27011 units/L (30-135) H 07/21/20 08:20 CK-MB (CK-2) 289.0 ng/mL (0.0-4.0) H 07/20/20 19:27 CK-MB (CK-2) Rel Index 2.0 (0-4) 07/20/20 19:27 Troponin T 0.026 ng/mL (0.00-0.029) 07/20/20 19:27 C-Reactive Protein 37.90 mg/dL (0.00-1.30) H 07/20/20 21:59 Total Protein 5.0 g/dL (6.3-8.2) L 07/26/20 04:00 Albumin 2.5 g/dL (3.9-5) L 07/26/20 04:00 Albumin/Globulin Ratio 1.0 % 07/26/20 04:00 Vitamin B12 1235 pg/mL (211-911) H 07/26/20 14:50 Folate 16.07 ng/mL (7.3-26.0) 07/26/20 14:50 Procalcitonin 40.67 ng/mL (<0.15) 07/20/20 21:59 TSH 0.454 mlU/mL (0.270-4.200) 07/20/20 19:27 Free T4 0.87 ng/dL (0.76-1.46) 07/20/20 19:27 Arterial Blood Glucose 125 mg/dL (65-95) H 07/24/20 19:33 Arterial Blood Ionized Calcium 4.3 mg/dL (4.6-5.3) L 07/24/20 19:33 Urine Color Yellow (Yellow) 07/21/20 Unknown Urine Turbidity Cloudy (Clear) 07/21/20 Unknown Urine pH 5.0 (5.0-7.0) 07/21/20 Unknown Ur Specific [place] 1.013 (1.003-1.030) 07/21/20 Unknown Urine Protein 30 mg/dl mg/dL (Negative) 07/21/20 Unknown Urine Glucose (UA) Neg mg/dL (Negative) 07/21/20 Unknown Urine Ketones Neg mg/dL (Negative) 07/21/20 Unknown Urine Blood Lg (Negative) 07/21/20 Unknown Urine Nitrite Neg (Negative) 07/21/20 Unknown Urine Bilirubin Neg (Negative) 07/21/20 Unknown Urine Urobilinogen < 2.0 mg/dL (<2.0) 07/21/20 Unknown Ur Leukocyte Esterase Sm (Negative) 07/21/20 Unknown Urine WBC (Auto) 28.0 /HPF (0.0-6.0) H 07/21/20 Unknown Urine RBC (Auto) 89.0 /HPF (0.0-6.0) 07/21/20 Unknown U Epithel Cells (Auto) 1.0 /HPF (0-13.0) 07/21/20 Unknown Urine WBC Clumps 2+ /HPF 07/21/20 Unknown Hyaline Casts 9 /LPF 07/21/20 Unknown Urine Mucus Few /HPF 07/21/20 Unknown Urine Yeast (Budding) 3+ /HPF 07/20/20 19:52 Urine Eosinophils None seen (None Seen) 07/21/20 Unknown Urine Creatinine 40.4 mg/dL (0.1-20.0) H 07/26/20 07:14 Urine Sodium 10 mmol/L 07/21/20 Unknown Urine Potassium 32.12 mmol/L 07/26/20 07:14 Urine Chloride 119.0 mmolL (110-250) 07/26/20 07:14 Random Vancomycin 4.7 ug/mL (0-40.0) 07/22/20 06:27 Urine Opiates Screen Positive 07/20/20 19:52 Urine Methadone Screen Negative 07/20/20 19:52 Ur Barbiturates Screen Negative 07/20/20 19:52 Ur Phencyclidine Scrn Negative 07/20/20 19:52 Ur Amphetamines Screen Negative 07/20/20 19:52 U Benzodiazepines Scrn Positive 07/20/20 19:52 Urine Cocaine Screen Negative 07/20/20 19:52 U Marijuana (THC) Screen Negative 07/20/20 19:52 Drugs of Abuse Note Disclamer 07/20/20 19:52 Proteinase 3 (PR3) Ab <1.0 AI (<1.0) 07/21/20 09:56 Myeloperoxidase Ab <1.0 AI (<1.0) 07/21/20 09:56 Complement C3 106 mg/dL (83-193) 07/21/20 09:56 Complement C4 21 mg/dL (15-57) 07/21/20 09:56 Coronavirus (PCR) Negative (Negative) 07/21/20 08:20 Hepatitis A IgM Ab Non-reactive (NonReactive) 07/23/20 17:33 Hep Bs Antigen Non-reactive (Negative) 07/23/20 17:33 Hep B Core IgM Ab Non-reactive (NonReactive) 07/23/20 17:33 Hepatitis C Antibody Reactive (NonReactive) A 07/23/20 17:33 Blood Type O POSITIVE 07/20/20 23:15 Antibody Screen Negative 07/20/20 23:15 Russell/IV: Voiding Method Indwelling Catheter Active Medications - Current Medications Current Medications: Generic Name Dose Route Start Last Admin Trade Name Freq PRN Reason Stop Dose Admin Acetaminophen 650 mg 07/20/20 22:51 Acetaminophen 325 Mg/10.15 Ml Oral Liqd Unit Dose FEEDTUBE Q6H PRN Pain MILD(1-3)/Fever >100.5/HESS Albuterol/Ipratropium 1 ampul 07/20/20 23:00 07/26/20 20:00 Ipratropium/Albuterol Sulfate 3 Ml Ampul.Neb IH 1 ampul Q6HRT HONEY Administration Alprazolam 2 mg 07/24/20 22:00 07/27/20 05:21 Alprazolam 1 Mg Tab PO 2 mg Q8HR HONEY Administration Lipase/Protease/Amylase 1 each 07/24/20 18:26 Lipase 10,500/Protease 25,000/Amylase 43,750 (Units) Dr [place] FEEDTUBE PRN PRN For Clogged Feeding Tube Dextrose 50 ml 07/26/20 10:10 Dextrose 50% In Water (25gm) 50 Ml Syringe IV Q30MIN PRN Hypoglycemia Protocol Famotidine 20 mg 07/20/20 23:00 07/26/20 09:14 Famotidine 20 Mg/2 Ml Inj IV 20 mg QAM HONEY Administration Haloperidol Lactate 5 mg 07/22/20 12:00 07/27/20 05:21 Haloperidol Lactate 5 Mg/1 Ml Inj IV 5 mg Q6H HONEY Administration Haloperidol Lactate 5 mg 07/23/20 17:24 Haloperidol Lactate 5 Mg/1 Ml Inj IV Q1HR PRN Unrespon. to mult. doses BZD's Hydralazine HCl 10 mg 07/22/20 23:25 07/24/20 15:02 Hydralazine 20 Mg/1 Ml Inj IV 10 mg Q6H PRN Administration Hypertension Folic Acid 1 mg/ Sodium 50.2 mls @ 200.8 mls/hr 07/23/20 18:00 07/26/20 09:14 Chloride IV 200 mls/hr QDAY HONEY Administration Thiamine HCl 100 mg/ Sodium 51 mls @ 100 mls/hr 07/23/20 18:00 07/26/20 09:14 Chloride IV 100 mls/hr QDAY HONEY Administration Ceftriaxone Sodium 1 gm in 50 mls @ 100 mls/hr 07/24/20 10:00 07/26/20 09:18 Rocephin/Ns 1 Gm/50 Ml IV 07/27/20 10:29 100 mls/hr Q24H HONEY Administration Protocol Potassium Chloride 20 meq/ 1,010 mls @ 125 mls/hr 07/25/20 16:00 07/26/20 22:37 Dextrose IV 0 mls/hr DIRECT HONEY Infusion Amino Acids 2,000 mls @ 75 mls/hr 07/26/20 20:00 07/26/20 21:05 Clinimix 4.25%-10% Solution IV 07/27/20 19:59 75 mls/hr ONCE HONEY Administration Insulin Human Regular 0 units 07/26/20 12:00 07/27/20 00:15 Insulin Regular, Human 100 Units/1 Ml SUB-Q Not Given Q6HR HONEY Protocol Lorazepam 2 mg 07/23/20 17:24 07/26/20 19:36 Lorazepam 2 Mg/Ml Vial IV 2 mg Q1HR PRN Administration CIWA-Ar 8-15 Lorazepam 4 mg 07/23/20 17:24 07/25/20 09:15 Lorazepam 2 Mg/Ml Vial IV 4 mg Q1HR PRN Administration CIWA-Ar 16-25 Lorazepam 4 mg 07/23/20 17:24 Lorazepam 2 Mg/Ml Vial IV Q15MIN PRN CIWA-Ar >25 Metoclopramide HCl 5 mg 07/20/20 22:51 Metoclopramide 10 Mg/2 Ml Inj IV Q6H PRN Nausea And Vomiting Simple Syrup 15 ml 07/24/20 18:26 Simple Syrup 15 Ml FEEDTUBE PRN PRN Hypoglycemia Simple Syrup 30 ml 07/24/20 18:26 Simple Syrup 15 Ml FEEDTUBE PRN PRN Hypoglycemia Sodium Bicarbonate 325 mg 07/24/20 18:26 Sodium Bicarbonate 325 Mg Tab FEEDTUBE PRN PRN For Clogged Feeding Tube Sodium Chloride 10 ml 07/21/20 10:00 07/26/20 21:25 Sodium Chloride 0.9% 10 Ml Flush Syringe IV 10 ml BID HONEY Administration Sodium Chloride 10 ml 07/20/20 22:51 07/25/20 05:01 Sodium Chloride 0.9% 10 Ml Flush Syringe IV 10 ml PRN PRN Administration LINE FLUSH Nutrition/Malnutrition Assess - Dietary Evaluation Nutrition/Malnutrition Findings: Nutrition Notes Start: 07/22/20 12:24 Freq: Status: Active Protocol: Document 07/26/20 12:35 CW (Rec: 07/26/20 12:46 CW [email or web address]) Nutrition Notes Initial or Follow up Reassessment Current Diagnosis Acute Kidney Injury,Sepsis, Hypertension Other Pertinent Diagnosis Hep C, AMS, UTI, Encephalopathy, dehydration Current Diet TPN - [facility] Labs/Tests Na 146 K 3.3 BUN 14 Cr 0.4 BG 114 phos 2.9 Ca 7.3 Mg 2 Pertinent Medications Thiamine Folic Acid KCl 40 mEq KPO4 30 mmol D5w at 75ml/hr Height 5 ft 3 in Weight 53 kg Addy Body Weight (kg) 52.27 BMI 20.7 Weight change and time frame Stable at this time Weight Status Underweight Subjective/Other Information culst for TPN. PICC line was placed today. [facility] w/ out electrolytes faxed to pharmacy at 1221. bIPAP remains running continously. Percent of energy/protein needs met: 0%/0% Burn Absent Trauma Absent GI Symptoms None Current % PO Negligible Minimum of two criteria No physical signs of malnutrition #1 Nutrition Diagnosis Inadequate oral intake Diagnosis Progress(for reassessment Continues documentation) Is patient on ventilator? No Is Patient Ambulatory and/or Out of Bed No REE-([facility]-confined to bed) 1258.560 Kcal/Kg value to use for calculation 30 Approximate Energy Requirements Using 1590 kcal/Kg Calculation Used for Recommendations Kcal/kg Additional Notes Protein needs are 64-106g (1.2 -2g/kg) Fluid needs are 1ml/kcal Nutrition Intervention Change Diet Order: TPN - [facility] Nutrition Support: [facility] at 75ml/hr. AA4.25% D10%; Osmality at 964. Kcal 929 Protein (gm) 75 Carbohydrates (gm) 185 Fat (gm) 0 Fluid (mL) 1,800 Goal #1 Initiate PN and tolerate Anticipated Discharge Needs: unable to determine at this time Follow-Up By: 07/27/20 Additional Comments F/U PN start, tolerance, K labs
[2020-07-26 15:38] LABS: Creatinine,Urine 40.4 mg/dL (0.1-20.0)
[2020-07-26] MEDS: POTASSIUM CHLORIDE 20 MEQ in DEXTROSE 5% IN WATER 1,000 ML IV SCH (17:58)
[2020-07-26] MEDS: LORazepam 2 MG/ML VIAL IV PRN (19:36)
[2020-07-26] MEDS ORDERED: TOTAL PARENTERAL NUTRITION 3,000 ML IV SCH (20:00)
[2020-07-26] MEDS ORDERED: AMINO ACIDS 4.25%/DEXTROSE 10% 2,000 ML IV SCH (20:00)
[2020-07-26 21:02] LABS: Myeloperoxidase Antibody <1.0 AI (<1.0)
[2020-07-27] MEDS: HALOPERIDOL LACTATE 5 MG/1 ML INJ IV SCH ×4 (00:15→17:51)
[2020-07-27] MEDS: INSULIN REGULAR, HUMAN 100 UNITS/1 ML SUB-Q SCH ×4 (00:15→17:35)
[2020-07-27] MEDS: IPRATROPIUM/ALBUTEROL SULFATE 3 ML AMPUL.NEB IH SCH ×4 (02:19→20:39)
[2020-07-27] MEDS: ALPRAZolam 1 MG TAB PO SCH ×3 (05:21→21:36)
[2020-07-27 06:16] LABS: Hematocrit 30.1 % (30.3-42.9); Hemoglobin 10.1 gm/dl (10.1-14.3); Mean Corpuscular HGB Conc 33 % (30-34); Mean Corpuscular Volume 100 fl (79-97); Red Blood Count 3.02 M/mm3 (3.65-5.03); Red Cell Distribution Width 13.3 % (13.2-15.2)
[2020-07-27 06:22] LABS: Platelet Count 77 K/mm3 (140-440)
[2020-07-27 06:51] LABS: Blood Urea Nitrogen 11 mg/dL (7-17); Calcium 7.4 mg/dL (8.4-10.2); Hemolysis Index 9
[2020-07-27 06:59] LABS: BUN/Creatinine Ratio 37
[2020-07-27] MEDS ORDERED: MAGNESIUM SULFATE 4 GM/100 ML BAG IV ONE (09:00)
--- NOTE | 2020-07-27 10:13 | Consultation ---
History of Present Illness Consult date: 07/27/20 Reason for Consult: AMS Chief complaint: AMS History of present illness: 65 yo female with htn, migraine d/o, hepatitis c, presents after being found down (hypothermic / hypotensive) by family members. She is admitted to the hosptial with sepsis, pneumonia, uti, kidney injury, acute resp failure, and noted encephalopathy. No clinical seizure activity noted. Past History Past Medical History: hepatitis, hypertension Medications and Allergies Allergies Allergy/AdvReac Type Severity Reaction Status Date / Time Iodine and Iodide Containing AdvReac Rash Verified 10/26/18 10:10 Produc Home Medications Medication Instructions Recorded Confirmed Last Taken Type Ondansetron [Zofran TAB] 4 mg PO Q8HR PRN #15 tablet 07/17/17 Unknown Rx Ibuprofen [Motrin 600 MG tab] 600 mg PO Q8H PRN #30 tablet 01/18/18 Unknown Rx Sulfamethoxazole/Trimethoprim 1 each PO BID 10 Days #20 tablet 01/18/18 Unknown Rx [Bactrim DS TAB] cephALEXin [Keflex] 500 mg PO Q12HR #20 capsule 01/18/18 Unknown Rx Famotidine [Pepcid] 20 mg PO BID #10 tablet 05/17/18 Unknown Rx Mag Hydrox/Aluminum Hyd/Simeth 15 ml PO QID #1 oral.susp 05/17/18 Unknown Rx [Maalox Advanced Suspension] Ondansetron [Zofran ODT TAB] 8 mg PO Q12HR #20 tab.rapdis 05/17/18 Unknown Rx Acetaminophen/Codeine [Tylenol 1 tab PO Q6H PRN #12 tab 10/26/18 Unknown Rx /Codeine # 3 tab] Clindamycin [Clindamycin CAP] 300 mg PO Q8H #21 cap 10/26/18 Unknown Rx Esomeprazole Magnesium [NexIUM] 40 mg PO QDAY 20 Days #20 06/04/19 Unknown Rx capsule. ALPRAZolam [Xanax TAB] 2 mg PO Q8H 07/23/20 07/23/20 Unknown History Carisoprodol [Soma] 350 mg PO Q6H 07/23/20 07/23/20 Unknown History Ezetimibe [Zetia] 10 mg PO DAILY 07/23/20 07/23/20 Unknown History Gabapentin [Neurontin] 600 mg PO Q6H 07/23/20 07/23/20 Unknown History HYDROcodone/APAP 5-325 1 tab Q6H 07/23/20 07/23/20 Unknown History SUMAtriptan SUCCINATE [Imitrex] 100 mg PO Q2H PRN 07/23/20 07/23/20 Unknown History Active Meds: Active Medications Acetaminophen (Acetaminophen 325 Mg/10.15 Ml Oral Liqd Unit Dose) 650 mg FEEDTUBE Q6H PRN PRN Reason: Pain MILD(1-3)/Fever >100.5/HESS Albuterol/Ipratropium (Ipratropium/Albuterol Sulfate 3 Ml Ampul.Neb) 1 ampul IH Q6HRT [facility] Last Admin: 07/27/20 08:23 Dose: 1 ampul Documented by: Alprazolam (Alprazolam 1 Mg Tab) 2 mg PO Q8HR [facility] Last Admin: 07/27/20 05:21 Dose: 2 mg Documented by: Lipase/Protease/Amylase (Lipase 10,500/Protease 25,000/Amylase 43,750 (Units) Dr [place]) 1 each FEEDTUBE PRN PRN PRN Reason: For Clogged Feeding Tube Dextrose (Dextrose 50% In Water (25gm) 50 Ml Syringe) 50 ml IV Q30MIN PRN; Protocol PRN Reason: Hypoglycemia Famotidine (Famotidine 20 Mg/2 Ml Inj) 20 mg IV QAM [facility] Last Admin: 07/26/20 09:14 Dose: 20 mg Documented by: Haloperidol Lactate (Haloperidol Lactate 5 Mg/1 Ml Inj) 5 mg IV Q6H [facility] Last Admin: 07/27/20 05:21 Dose: 5 mg Documented by: Haloperidol Lactate (Haloperidol Lactate 5 Mg/1 Ml Inj) 5 mg IV Q1HR PRN PRN Reason: Unrespon. to mult. doses BZD's Hydralazine HCl (Hydralazine 20 Mg/1 Ml Inj) 10 mg IV Q6H PRN PRN Reason: Hypertension Last Admin: 07/24/20 15:02 Dose: 10 mg Documented by: Folic Acid 1 mg/ Sodium (Chloride) 50.2 mls @ 200.8 mls/hr IV QDAY [facility] Last Admin: 07/26/20 09:14 Dose: 200 mls/hr Documented by: Thiamine HCl 100 mg/ Sodium (Chloride) 51 mls @ 100 mls/hr IV QDAY [facility] Last Admin: 07/26/20 09:14 Dose: 100 mls/hr Documented by: Ceftriaxone Sodium (Rocephin/Ns 1 Gm/50 Ml) 1 gm in 50 mls @ 100 mls/hr IV Q24H [facility]; Protocol Stop: 07/27/20 10:29 Last Admin: 07/26/20 09:18 Dose: 100 mls/hr Documented by: Amino Acids (Clinimix 4.25%-10% Solution) 2,000 mls @ 75 mls/hr IV ONCE [facility] Stop: 07/27/20 19:59 Last Admin: 07/26/20 21:05 Dose: 75 mls/hr Documented by: Magnesium Sulfate (Magnesium Sulfate 4gm/100ml) 4 gm in 100 mls @ 25 mls/hr IV ONCE ONE Stop: 07/27/20 12:59 Potassium Chloride (Kcl 20meq/100ml) 20 meq in 100 mls @ 100 mls/hr IV Q1H [facility] Stop: 07/27/20 11:59 Insulin Human Regular (Insulin Regular, Human 100 Units/1 Ml) 0 units SUB-Q Q6HR [facility]; Protocol Last Admin: 07/27/20 07:20 Dose: Not Given Documented by: Lorazepam (Lorazepam 2 Mg/Ml Vial) 2 mg IV Q1HR PRN PRN Reason: CIWA-Ar 8-15 Last Admin: 07/26/20 19:36 Dose: 2 mg Documented by: Lorazepam (Lorazepam 2 Mg/Ml Vial) 4 mg IV Q1HR PRN PRN Reason: CIWA-Ar 16-25 Last Admin: 07/25/20 09:15 Dose: 4 mg Documented by: Lorazepam (Lorazepam 2 Mg/Ml Vial) 4 mg IV Q15MIN PRN PRN Reason: CIWA-Ar >25 Metoclopramide HCl (Metoclopramide 10 Mg/2 Ml Inj) 5 mg IV Q6H PRN PRN Reason: Nausea And Vomiting Simple Syrup (Simple Syrup 15 Ml) 15 ml FEEDTUBE PRN PRN PRN Reason: Hypoglycemia Simple Syrup (Simple Syrup 15 Ml) 30 ml FEEDTUBE PRN PRN PRN Reason: Hypoglycemia Sodium Bicarbonate (Sodium Bicarbonate 325 Mg Tab) 325 mg FEEDTUBE PRN PRN PRN Reason: For Clogged Feeding Tube Sodium Chloride (Sodium Chloride 0.9% 10 Ml Flush Syringe) 10 ml IV BID [facility] Last Admin: 07/26/20 21:25 Dose: 10 ml Documented by: Sodium Chloride (Sodium Chloride 0.9% 10 Ml Flush Syringe) 10 ml IV PRN PRN PRN Reason: LINE FLUSH Last Admin: 07/25/20 05:01 Dose: 10 ml Documented by: Review of Systems ROS unobtainable: due to mental status Physical Examination - Vital Signs Vital Signs: Vital Signs Temp Pulse Resp BP 86 F L 72 32 H 106/79 07/20/20 18:54 07/20/20 18:54 07/20/20 18:54 07/20/20 18:54 - Physical Exam Narrative exam: Gen: nad, well-nourished; Head: normocephalic; Eyes: no gaze deviation; no ptosis appreciated; ENT: no vocalization; CVS: warm and well-perfused; Pulm: no respiratory distress; GI: non-distended, non-protuberant; Ext: no cyanosis at distal extremities; Skin: no acute rash at distal extremities; Heme: no bruising at distal extremities; Neuro: obtunded, bipap/cpap mask, CN 2 - sluggish reactive pupils, CN 3, 4, 6 - oculocephalic intact, CN 5/7 - corneal reflex intact, CN 9/10 - swallowing not observed, CN 11/12 - pt cannot cooperate secondary to LOC; Motor/Sensory - at least 1/5 in all exts to tactile stimuli; Cerebellar/Gait - pt cannot cooperate secondary to LOC; NIHSS>25; Results - Laboratory Findings CBC and BMP: 07/27/20 Unknown 07/27/20 04:00 Abnormal Lab Findings: Abnormal Labs 07/20/20 07/20/20 07/20/20 19:20 19:27 19:27 WBC 17.9 H RBC Hgb Hct MCV 102 H MCH 33 H Plt Count Lymph % (Auto) 4.4 L Lymph # (Auto) 0.8 L Baso # (Auto) 0.3 H Seg Neutrophils % 90.0 H Lymphocytes % (Manual) Seg Neutrophils # 16.1 H Seg Neutrophils # Man Lymphocytes # (Manual) PT INR D-Dimer ABG pH POC ABG pO2 ABG Hemoglobin ABG Oxyhemoglobin ABG Sodium ABG Potassium ABG Chloride ABG Glucose Sodium 130 L Potassium 5.6 H Chloride 84.4 L Carbon Dioxide 14 L BUN 108 H Creatinine 7.7 H Glucose POC Glucose 55 L Lactic Acid Calcium 7.4 L Phosphorus Magnesium Ferritin AST 306 H ALT 97 H Ammonia Lactate Dehydrogenase Total Creatine Kinase CK-MB (CK-2) C-Reactive Protein Total Protein Albumin 3.3 L Vitamin B12 Arterial Blood Glucose Arterial Blood Ionized Calcium Urine WBC (Auto) Urine Creatinine Hepatitis C Antibody 07/20/20 07/20/20 07/20/20 19:27 19:27 19:32 WBC RBC Hgb Hct MCV MCH Plt Count Lymph % (Auto) Lymph # (Auto) Baso # (Auto) Seg Neutrophils % Lymphocytes % (Manual) Seg Neutrophils # Seg Neutrophils # Man Lymphocytes # (Manual) PT 20.1 H INR 1.72 H D-Dimer ABG pH POC ABG pO2 ABG Hemoglobin ABG Oxyhemoglobin ABG Sodium ABG Potassium ABG Chloride ABG Glucose Sodium Potassium Chloride Carbon Dioxide BUN Creatinine Glucose POC Glucose Lactic Acid 3.10 H* Calcium Phosphorus Magnesium Ferritin AST ALT Ammonia Lactate Dehydrogenase Total Creatine Kinase 08700 H CK-MB (CK-2) 289.0 H C-Reactive Protein Total Protein Albumin Vitamin B12 Arterial Blood Glucose Arterial Blood Ionized Calcium Urine WBC (Auto) Urine Creatinine Hepatitis C Antibody 07/20/20 07/20/20 07/20/20 19:52 19:59 20:41 WBC RBC Hgb Hct MCV MCH Plt Count Lymph % (Auto) Lymph # (Auto) Baso # (Auto) Seg Neutrophils % Lymphocytes % (Manual) Seg Neutrophils # Seg Neutrophils # Man Lymphocytes # (Manual) PT INR D-Dimer ABG pH 7.016 L POC ABG pO2 55.7 L ABG Hemoglobin ABG Oxyhemoglobin 81.6 L ABG Sodium 129.0 L ABG Potassium 5.0 H ABG Chloride ABG Glucose 157 H Sodium Potassium Chloride Carbon Dioxide BUN Creatinine Glucose POC Glucose 108 H Lactic Acid Calcium Phosphorus Magnesium Ferritin AST ALT Ammonia Lactate Dehydrogenase Total Creatine Kinase CK-MB (CK-2) C-Reactive Protein Total Protein Albumin Vitamin B12 Arterial Blood Glucose 157 H Arterial Blood Ionized Calcium 3.9 L Urine WBC (Auto) > 182.0 H Urine Creatinine Hepatitis C Antibody 07/20/20 07/20/20 07/20/20 21:59 21:59 21:59 WBC RBC Hgb Hct MCV MCH Plt Count Lymph % (Auto) Lymph # (Auto) Baso # (Auto) Seg Neutrophils % Lymphocytes % (Manual) Seg Neutrophils # Seg Neutrophils # Man Lymphocytes # (Manual) PT INR D-Dimer 2098.49 H ABG pH POC ABG pO2 ABG Hemoglobin ABG Oxyhemoglobin ABG Sodium ABG Potassium ABG Chloride ABG Glucose Sodium Potassium Chloride Carbon Dioxide BUN Creatinine Glucose POC Glucose Lactic Acid Calcium Phosphorus Magnesium Ferritin 1648.0 H AST ALT Ammonia Lactate Dehydrogenase 732 H Total Creatine Kinase CK-MB (CK-2) C-Reactive Protein 37.90 H Total Protein Albumin Vitamin B12 Arterial Blood Glucose Arterial Blood Ionized Calcium Urine WBC (Auto) Urine Creatinine Hepatitis C Antibody 07/20/20 07/21/20 07/21/20 23:35 01:56 04:00 WBC 15.1 H RBC 3.52 L Hgb Hct MCV 100 H MCH 33 H Plt Count Lymph % (Auto) Lymph # (Auto) Baso # (Auto) Seg Neutrophils % Lymphocytes % (Manual) 2.0 L Seg Neutrophils # Seg Neutrophils # Man 9.4 H Lymphocytes # (Manual) 0.3 L PT INR D-Dimer ABG pH POC ABG pO2 ABG Hemoglobin ABG Oxyhemoglobin ABG Sodium ABG Potassium ABG Chloride ABG Glucose Sodium Potassium 5.8 H Chloride 95.4 L Carbon Dioxide 17 L BUN 100 H Creatinine 6.8 H Glucose 61 L POC Glucose 138 H Lactic Acid Calcium 6.3 L Phosphorus Magnesium Ferritin AST ALT Ammonia Lactate Dehydrogenase Total Creatine Kinase CK-MB (CK-2) C-Reactive Protein Total Protein Albumin Vitamin B12 Arterial Blood Glucose Arterial Blood Ionized Calcium Urine WBC (Auto) Urine Creatinine Hepatitis C Antibody 07/21/20 07/21/20 07/21/20 04:00 05:24 06:06 WBC RBC Hgb Hct MCV MCH Plt Count Lymph % (Auto) Lymph # (Auto) Baso # (Auto) Seg Neutrophils % Lymphocytes % (Manual) Seg Neutrophils # Seg Neutrophils # Man Lymphocytes # (Manual) PT INR D-Dimer ABG pH POC ABG pO2 ABG Hemoglobin ABG Oxyhemoglobin ABG Sodium ABG Potassium ABG Chloride ABG Glucose Sodium Potassium 6.1 H* Chloride 97.2 L Carbon Dioxide 21 L BUN 104 H Creatinine 6.7 H Glucose POC Glucose 121 H 124 H Lactic Acid Calcium 6.5 L Phosphorus Magnesium Ferritin AST ALT Ammonia Lactate Dehydrogenase Total Creatine Kinase CK-MB (CK-2) C-Reactive Protein Total Protein Albumin Vitamin B12 Arterial Blood Glucose Arterial Blood Ionized Calcium Urine WBC (Auto) Urine Creatinine Hepatitis C Antibody 07/21/20 07/21/20 07/21/20 06:58 07:58 08:20 WBC RBC Hgb Hct MCV MCH Plt Count Lymph % (Auto) Lymph # (Auto) Baso # (Auto) Seg Neutrophils % Lymphocytes % (Manual) Seg Neutrophils # Seg Neutrophils # Man Lymphocytes # (Manual) PT INR D-Dimer ABG pH POC ABG pO2 ABG Hemoglobin ABG Oxyhemoglobin ABG Sodium ABG Potassium ABG Chloride ABG Glucose Sodium Potassium Chloride Carbon Dioxide BUN Creatinine Glucose POC Glucose 128 H 133 H Lactic Acid Calcium Phosphorus Magnesium Ferritin AST ALT Ammonia Lactate Dehydrogenase Total Creatine Kinase 70936 H CK-MB (CK-2) C-Reactive Protein Total Protein Albumin Vitamin B12 Arterial Blood Glucose Arterial Blood Ionized Calcium Urine WBC (Auto) Urine Creatinine Hepatitis C Antibody 07/21/20 07/21/20 07/21/20 09:15 09:31 10:09 WBC RBC Hgb Hct MCV MCH Plt Count Lymph % (Auto) Lymph # (Auto) Baso # (Auto) Seg Neutrophils % Lymphocytes % (Manual) Seg Neutrophils # Seg Neutrophils # Man Lymphocytes # (Manual) PT INR D-Dimer ABG pH 7.239 L POC ABG pO2 70.1 L ABG Hemoglobin 11.4 L ABG Oxyhemoglobin 92.6 L ABG Sodium 135.2 L ABG Potassium 5.1 H ABG Chloride ABG Glucose 147 H Sodium Potassium Chloride Carbon Dioxide BUN Creatinine Glucose POC Glucose 129 H Lactic Acid Calcium Phosphorus Magnesium Ferritin AST ALT Ammonia 24.0 L Lactate Dehydrogenase Total Creatine Kinase CK-MB (CK-2) C-Reactive Protein Total Protein Albumin Vitamin B12 Arterial Blood Glucose 147 H Arterial Blood Ionized Calcium 3.4 L Urine WBC (Auto) Urine Creatinine Hepatitis C Antibody 07/21/20 07/21/20 07/21/20 12:55 14:19 17:20 WBC RBC Hgb Hct MCV MCH Plt Count Lymph % (Auto) Lymph # (Auto) Baso # (Auto) Seg Neutrophils % Lymphocytes % (Manual) Seg Neutrophils # Seg Neutrophils # Man Lymphocytes # (Manual) PT INR D-Dimer ABG pH POC ABG pO2 ABG Hemoglobin ABG Oxyhemoglobin ABG Sodium ABG Potassium ABG Chloride ABG Glucose Sodium Potassium Chloride Carbon Dioxide 20 L BUN 88 H Creatinine 4.0 H Glucose 166 H POC Glucose 157 H 172 H Lactic Acid Calcium 6.0 L Phosphorus Magnesium Ferritin AST ALT Ammonia Lactate Dehydrogenase Total Creatine Kinase CK-MB (CK-2) C-Reactive Protein Total Protein Albumin Vitamin B12 Arterial Blood Glucose Arterial Blood Ionized Calcium Urine WBC (Auto) Urine Creatinine Hepatitis C Antibody 07/21/20 07/21/20 07/21/20 17:30 20:59 23:59 WBC RBC Hgb Hct MCV MCH Plt Count Lymph % (Auto) Lymph # (Auto) Baso # (Auto) Seg Neutrophils % Lymphocytes % (Manual) Seg Neutrophils # Seg Neutrophils # Man Lymphocytes # (Manual) PT INR D-Dimer ABG pH 7.174 L POC ABG pO2 69.3 L ABG Hemoglobin 11.9 L ABG Oxyhemoglobin 91.0 L ABG Sodium 134.0 L ABG Potassium 5.4 H ABG Chloride ABG Glucose 60 L Sodium Potassium Chloride 110.0 H Carbon Dioxide 21 L BUN 72 H Creatinine 2.7 H Glucose 175 H POC Glucose 122 H Lactic Acid Calcium 5.6 L* Phosphorus Magnesium Ferritin AST ALT Ammonia Lactate Dehydrogenase Total Creatine Kinase CK-MB (CK-2) C-Reactive Protein Total Protein Albumin Vitamin B12 Arterial Blood Glucose 60 L Arterial Blood Ionized Calcium 3.6 L Urine WBC (Auto) Urine Creatinine Hepatitis C Antibody 07/21/20 07/22/20 07/22/20 Unknown 02:00 02:03 WBC RBC Hgb Hct MCV MCH Plt Count Lymph % (Auto) Lymph # (Auto) Baso # (Auto) Seg Neutrophils % Lymphocytes % (Manual) Seg Neutrophils # Seg Neutrophils # Man Lymphocytes # (Manual) PT INR D-Dimer ABG pH POC ABG pO2 ABG Hemoglobin ABG Oxyhemoglobin ABG Sodium ABG Potassium ABG Chloride ABG Glucose Sodium 146 H Potassium Chloride 109.9 H Carbon Dioxide BUN 56 H Creatinine 1.6 H Glucose 125 H POC Glucose 113 H Lactic Acid Calcium 6.5 L D Phosphorus Magnesium Ferritin AST ALT Ammonia Lactate Dehydrogenase Total Creatine Kinase CK-MB (CK-2) C-Reactive Protein Total Protein Albumin Vitamin B12 Arterial Blood Glucose Arterial Blood Ionized Calcium Urine WBC (Auto) 28.0 H Urine Creatinine Hepatitis C Antibody 07/22/20 07/22/20 07/22/20 05:00 06:27 09:44 WBC RBC 3.11 L Hgb Hct MCV 99 H MCH 34 H Plt Count 86 L Lymph % (Auto) Lymph # (Auto) Baso # (Auto) Seg Neutrophils % Lymphocytes % (Manual) Seg Neutrophils # Seg Neutrophils # Man Lymphocytes # (Manual) PT INR D-Dimer ABG pH POC ABG pO2 ABG Hemoglobin ABG Oxyhemoglobin ABG Sodium ABG Potassium ABG Chloride ABG Glucose Sodium 148 H Potassium Chloride 111.3 H Carbon Dioxide BUN 53 H Creatinine 1.4 H Glucose 135 H POC Glucose 122 H Lactic Acid Calcium 7.2 L Phosphorus Magnesium Ferritin AST ALT Ammonia Lactate Dehydrogenase Total Creatine Kinase CK-MB (CK-2) C-Reactive Protein Total Protein Albumin Vitamin B12 Arterial Blood Glucose Arterial Blood Ionized Calcium Urine WBC (Auto) Urine Creatinine Hepatitis C Antibody 07/22/20 07/22/20 07/22/20 11:00 11:56 21:18 WBC RBC Hgb Hct MCV MCH Plt Count Lymph % (Auto) Lymph # (Auto) Baso # (Auto) Seg Neutrophils % Lymphocytes % (Manual) Seg Neutrophils # Seg Neutrophils # Man Lymphocytes # (Manual) PT INR D-Dimer ABG pH POC ABG pO2 73.5 L ABG Hemoglobin 11.1 L ABG Oxyhemoglobin ABG Sodium 145.8 H ABG Potassium ABG Chloride 114.0 H ABG Glucose 125 H Sodium Potassium Chloride Carbon Dioxide BUN Creatinine Glucose POC Glucose 126 H 126 H Lactic Acid Calcium Phosphorus Magnesium Ferritin AST ALT Ammonia Lactate Dehydrogenase Total Creatine Kinase CK-MB (CK-2) C-Reactive Protein Total Protein Albumin Vitamin B12 Arterial Blood Glucose 125 H Arterial Blood Ionized Calcium 4.2 L Urine WBC (Auto) Urine Creatinine Hepatitis C Antibody 07/23/20 07/23/20 07/23/20 01:43 04:48 04:48 WBC 13.2 H RBC 3.47 L Hgb Hct MCV 99 H MCH 33 H Plt Count 98 L Lymph % (Auto) Lymph # (Auto) Baso # (Auto) Seg Neutrophils % Lymphocytes % (Manual) Seg Neutrophils # Seg Neutrophils # Man Lymphocytes # (Manual) PT INR D-Dimer ABG pH POC ABG pO2 ABG Hemoglobin ABG Oxyhemoglobin ABG Sodium ABG Potassium ABG Chloride ABG Glucose Sodium 155 H Potassium 3.1 L D Chloride 112.2 H Carbon Dioxide BUN 34 H Creatinine Glucose 143 H POC Glucose 146 H Lactic Acid Calcium 7.8 L Phosphorus Magnesium Ferritin AST ALT Ammonia Lactate Dehydrogenase Total Creatine Kinase CK-MB (CK-2) C-Reactive Protein Total Protein Albumin Vitamin B12 Arterial Blood Glucose Arterial Blood Ionized Calcium Urine WBC (Auto) Urine Creatinine Hepatitis C Antibody 07/23/20 07/23/20 07/23/20 05:32 11:49 14:33 WBC RBC Hgb Hct MCV MCH Plt Count Lymph % (Auto) Lymph # (Auto) Baso # (Auto) Seg Neutrophils % Lymphocytes % (Manual) Seg Neutrophils # Seg Neutrophils # Man Lymphocytes # (Manual) PT INR D-Dimer ABG pH POC ABG pO2 ABG Hemoglobin ABG Oxyhemoglobin ABG Sodium ABG Potassium ABG Chloride ABG Glucose Sodium 157 H Potassium 3.5 L Chloride 115.0 H Carbon Dioxide 32 H BUN 34 H Creatinine Glucose 119 H POC Glucose 149 H 112 H Lactic Acid Calcium Phosphorus Magnesium Ferritin AST ALT Ammonia Lactate Dehydrogenase Total Creatine Kinase CK-MB (CK-2) C-Reactive Protein Total Protein Albumin Vitamin B12 Arterial Blood Glucose Arterial Blood Ionized Calcium Urine WBC (Auto) Urine Creatinine Hepatitis C Antibody 07/23/20 07/23/20 07/23/20 17:33 17:33 17:33 WBC RBC Hgb Hct MCV MCH Plt Count Lymph % (Auto) Lymph # (Auto) Baso # (Auto) Seg Neutrophils % Lymphocytes % (Manual) Seg Neutrophils # Seg Neutrophils # Man Lymphocytes # (Manual) PT INR D-Dimer ABG pH POC ABG pO2 ABG Hemoglobin ABG Oxyhemoglobin ABG Sodium ABG Potassium ABG Chloride ABG Glucose Sodium Potassium Chloride Carbon Dioxide BUN Creatinine Glucose POC Glucose Lactic Acid Calcium Phosphorus 1.80 L Magnesium Ferritin AST 158 H ALT 96 H Ammonia Lactate Dehydrogenase Total Creatine Kinase CK-MB (CK-2) C-Reactive Protein Total Protein 6.2 L Albumin 2.9 L Vitamin B12 Arterial Blood Glucose Arterial Blood Ionized Calcium Urine WBC (Auto) Urine Creatinine Hepatitis C Antibody Reactive A 07/24/20 07/24/20 07/24/20 02:17 05:20 05:29 WBC RBC Hgb Hct MCV MCH Plt Count Lymph % (Auto) Lymph # (Auto) Baso # (Auto) Seg Neutrophils % Lymphocytes % (Manual) Seg Neutrophils # Seg Neutrophils # Man Lymphocytes # (Manual) PT INR D-Dimer ABG pH POC ABG pO2 ABG Hemoglobin ABG Oxyhemoglobin ABG Sodium ABG Potassium ABG Chloride ABG Glucose Sodium 163 H* Potassium Chloride 118.6 H Carbon Dioxide BUN 33 H Creatinine Glucose 118 H POC Glucose 106 H 111 H Lactic Acid Calcium 7.9 L Phosphorus Magnesium Ferritin AST ALT Ammonia Lactate Dehydrogenase Total Creatine Kinase CK-MB (CK-2) C-Reactive Protein Total Protein Albumin Vitamin B12 Arterial Blood Glucose Arterial Blood Ionized Calcium Urine WBC (Auto) Urine Creatinine Hepatitis C Antibody 07/24/20 07/24/20 07/24/20 08:00 11:52 14:43 WBC RBC Hgb Hct MCV MCH Plt Count Lymph % (Auto) Lymph # (Auto) Baso # (Auto) Seg Neutrophils % Lymphocytes % (Manual) Seg Neutrophils # Seg Neutrophils # Man Lymphocytes # (Manual) PT INR D-Dimer ABG pH POC ABG pO2 ABG Hemoglobin ABG Oxyhemoglobin ABG Sodium ABG Potassium ABG Chloride ABG Glucose Sodium 155 H Potassium 3.5 L Chloride 112.7 H Carbon Dioxide 32 H BUN 28 H Creatinine Glucose 125 H POC Glucose 109 H 118 H Lactic Acid Calcium 8.2 L Phosphorus Magnesium Ferritin AST ALT Ammonia Lactate Dehydrogenase Total Creatine Kinase CK-MB (CK-2) C-Reactive Protein Total Protein Albumin Vitamin B12 Arterial Blood Glucose Arterial Blood Ionized Calcium Urine WBC (Auto) Urine Creatinine Hepatitis C Antibody 07/24/20 07/24/20 07/24/20 16:52 19:33 23:02 WBC RBC Hgb Hct MCV MCH Plt Count Lymph % (Auto) Lymph # (Auto) Baso # (Auto) Seg Neutrophils % Lymphocytes % (Manual) Seg Neutrophils # Seg Neutrophils # Man Lymphocytes # (Manual) PT INR D-Dimer ABG pH 7.523 H POC ABG pO2 76.4 L ABG Hemoglobin 10.3 L ABG Oxyhemoglobin ABG Sodium 151.2 H ABG Potassium 2.4 L ABG Chloride 111.0 H ABG Glucose 125 H Sodium Potassium Chloride Carbon Dioxide BUN Creatinine Glucose POC Glucose 111 H 127 H Lactic Acid Calcium Phosphorus Magnesium Ferritin AST ALT Ammonia Lactate Dehydrogenase Total Creatine Kinase CK-MB (CK-2) C-Reactive Protein Total Protein Albumin Vitamin B12 Arterial Blood Glucose 125 H Arterial Blood Ionized Calcium 4.3 L Urine WBC (Auto) Urine Creatinine Hepatitis C Antibody 07/25/20 07/25/20 07/25/20 02:12 05:15 05:15 WBC 12.0 H RBC 3.11 L Hgb Hct MCV 99 H MCH 33 H Plt Count 77 L Lymph % (Auto) 9.5 L Lymph # (Auto) 1.1 L Baso # (Auto) Seg Neutrophils % 88.2 H Lymphocytes % (Manual) Seg Neutrophils # 10.6 H Seg Neutrophils # Man Lymphocytes # (Manual) PT INR D-Dimer ABG pH POC ABG pO2 ABG Hemoglobin ABG Oxyhemoglobin ABG Sodium ABG Potassium ABG Chloride ABG Glucose Sodium 152 H Potassium 2.6 L* D Chloride 109.5 H Carbon Dioxide 34 H BUN 21 H Creatinine 0.5 L Glucose 124 H POC Glucose 124 H Lactic Acid Calcium 7.7 L Phosphorus Magnesium Ferritin AST ALT Ammonia Lactate Dehydrogenase Total Creatine Kinase CK-MB (CK-2) C-Reactive Protein Total Protein Albumin Vitamin B12 Arterial Blood Glucose Arterial Blood Ionized Calcium Urine WBC (Auto) Urine Creatinine Hepatitis C Antibody 07/25/20 07/25/20 07/25/20 05:42 14:35 14:35 WBC RBC Hgb Hct MCV MCH Plt Count Lymph % (Auto) Lymph # (Auto) Baso # (Auto) Seg Neutrophils % Lymphocytes % (Manual) Seg Neutrophils # Seg Neutrophils # Man Lymphocytes # (Manual) PT INR D-Dimer ABG pH POC ABG pO2 ABG Hemoglobin ABG Oxyhemoglobin ABG Sodium ABG Potassium ABG Chloride ABG Glucose Sodium 151 H Potassium 3.4 L D Chloride 109.7 H Carbon Dioxide 31 H BUN Creatinine 0.5 L Glucose POC Glucose 108 H Lactic Acid Calcium 7.7 L Phosphorus 1.70 L Magnesium Ferritin AST ALT Ammonia Lactate Dehydrogenase Total Creatine Kinase CK-MB (CK-2) C-Reactive Protein Total Protein Albumin Vitamin B12 Arterial Blood Glucose Arterial Blood Ionized Calcium Urine WBC (Auto) Urine Creatinine Hepatitis C Antibody 07/25/20 07/25/20 07/26/20 18:29 21:07 04:00 WBC RBC Hgb Hct MCV MCH Plt Count Lymph % (Auto) Lymph # (Auto) Baso # (Auto) Seg Neutrophils % Lymphocytes % (Manual) Seg Neutrophils # Seg Neutrophils # Man Lymphocytes # (Manual) PT INR D-Dimer ABG pH POC ABG pO2 ABG Hemoglobin ABG Oxyhemoglobin ABG Sodium ABG Potassium ABG Chloride ABG Glucose Sodium 147 H 146 H Potassium 3.3 L D Chloride Carbon Dioxide 35 H BUN Creatinine 0.4 L 0.4 L Glucose 122 H 114 H POC Glucose 120 H Lactic Acid Calcium 7.5 L 7.3 L Phosphorus Magnesium Ferritin AST 74 H ALT 79 H Ammonia Lactate Dehydrogenase Total Creatine Kinase CK-MB (CK-2) C-Reactive Protein Total Protein 5.0 L Albumin 2.5 L Vitamin B12 Arterial Blood Glucose Arterial Blood Ionized Calcium Urine WBC (Auto) Urine Creatinine Hepatitis C Antibody 07/26/20 07/26/20 07/26/20 07:14 14:50 18:32 WBC RBC Hgb Hct MCV MCH Plt Count Lymph % (Auto) Lymph # (Auto) Baso # (Auto) Seg Neutrophils % Lymphocytes % (Manual) Seg Neutrophils # Seg Neutrophils # Man Lymphocytes # (Manual) PT INR D-Dimer ABG pH POC ABG pO2 ABG Hemoglobin ABG Oxyhemoglobin ABG Sodium ABG Potassium ABG Chloride ABG Glucose Sodium Potassium Chloride Carbon Dioxide BUN Creatinine Glucose POC Glucose 44 L Lactic Acid Calcium Phosphorus Magnesium Ferritin AST ALT Ammonia Lactate Dehydrogenase Total Creatine Kinase CK-MB (CK-2) C-Reactive Protein Total Protein Albumin Vitamin B12 1235 H Arterial Blood Glucose Arterial Blood Ionized Calcium Urine WBC (Auto) Urine Creatinine 40.4 H Hepatitis C Antibody 07/26/20 07/26/20 07/26/20 18:34 23:11 Unknown WBC 12.6 H RBC 2.92 L Hgb 9.8 L Hct 29.3 L MCV 100 H MCH 34 H Plt Count 73 L Lymph % (Auto) Lymph # (Auto) Baso # (Auto) Seg Neutrophils % Lymphocytes % (Manual) Seg Neutrophils # Seg Neutrophils # Man Lymphocytes # (Manual) PT INR D-Dimer ABG pH POC ABG pO2 ABG Hemoglobin ABG Oxyhemoglobin ABG Sodium ABG Potassium ABG Chloride ABG Glucose Sodium Potassium Chloride Carbon Dioxide BUN Creatinine Glucose POC Glucose 106 H 112 H Lactic Acid Calcium Phosphorus Magnesium Ferritin AST ALT Ammonia Lactate Dehydrogenase Total Creatine Kinase CK-MB (CK-2) C-Reactive Protein Total Protein Albumin Vitamin B12 Arterial Blood Glucose Arterial Blood Ionized Calcium Urine WBC (Auto) Urine Creatinine Hepatitis C Antibody 07/27/20 07/27/20 07/27/20 04:00 05:17 Unknown WBC 11.2 H RBC 3.02 L Hgb Hct 30.1 L MCV 100 H MCH 33 H Plt Count 77 L Lymph % (Auto) Lymph # (Auto) Baso # (Auto) Seg Neutrophils % Lymphocytes % (Manual) Seg Neutrophils # Seg Neutrophils # Man Lymphocytes # (Manual) PT INR D-Dimer ABG pH POC ABG pO2 ABG Hemoglobin ABG Oxyhemoglobin ABG Sodium ABG Potassium ABG Chloride ABG Glucose Sodium Potassium 3.2 L Chloride Carbon Dioxide 37 H BUN Creatinine 0.3 L Glucose 120 H POC Glucose 123 H Lactic Acid Calcium 7.4 L Phosphorus Magnesium 1.30 L Ferritin AST ALT Ammonia Lactate Dehydrogenase Total Creatine Kinase CK-MB (CK-2) C-Reactive Protein Total Protein Albumin Vitamin B12 Arterial Blood Glucose Arterial Blood Ionized Calcium Urine WBC (Auto) Urine Creatinine Hepatitis C Antibody Assessment and Plan 65 yo female with htn, migraine d/o, hepatitis c, presents after being found down (hypothermic / hypotensive) by family members. She is admitted to the hosptial with sepsis, pneumonia, uti, kidney injury, acute resp failure, and noted encephalopathy. No clinical seizure activity noted. 1. Hypoxic Anoxic Encephalopathy - recommend MR Brain w/o contrast. 2. Metabolic Encephalopathy - in the setting of underlying infection, haldol, ativan; confirm b12, tsh, folate, thiamine. 3. Acute Ischemic Stroke - aspirin 81 mg po qday, statin therapy for a goal ldl of 70; MR Brain w/o contrast when clinically stable; further workup based on MR findings. 4. Seizure - confirm no subclinical seizures with EEG (ordered). Hang Guerin MD Neurology
[2020-07-27] MEDS: FAMOTIDINE 20 MG/2 ML INJ IV SCH (10:45)
[2020-07-27] MEDS: POTASSIUM CHLORIDE 20 MEQ 20 MEQ/100 ML BAG IV SCH ×3 (10:45→13:18)
[2020-07-27] MEDS: THIAMINE 100 MG in SODIUM CHLORIDE 0.9% 50 ML IV SCH (10:45)
[2020-07-27] MEDS: cefTRIAXone/NS 1 GM/50 ML 1 GM/50 ML BAG IV SCH (10:46)
--- NOTE | 2020-07-27 11:35 | Progress Note ---
Assessment and Plan Impression: * Nonoliguric DOREEN secondary to multifactorial etiologies: prerenal component due to volume depletion vs ATN (sepsis) * Acute hypoxic respiratory failure * Sepsis * Klebsiella UTI * Acute encephelopathy * Uremia * Hypernatremia: free water deficit, now improved * Hyperkalemia->hypokalemia now: likely nutritional * Metabolic Alkalosis: likely contracted Plan: * Renal function improved with volume resuscitation. Peaked with creatinine 7.7->0.5->0.3 this AM over past week. No acute indication for renal replacement therapy at this time. Continue conservative management. Creatinine now abnormally low, likely due to poor nutrition * Continue K repletion, off IVF this AM, on PPN (amino acids), consider addition of electrolytes including K, Mg to nutrition as able * Urine K/creatinine noted, replete prn * Checked urine chloride for alkalosis, is higher than expected, still feel that patient appears more contracted but will follow * ?Possible withdrawal - note order for Ativan prn, on CIWA protocol * Abx per primary team * Pressors prn to maintain MAP>65 * Avoid potential nephrotoxins * Dose medications for renal function * AM labs Subjective Date of service: 07/27/20 Interval history: No acute issues noted, on Bipap] Now on PPN Objective - Exam Narrative Exam: General appearance: well-developed, other (Bipap in place) EENT: ATNC Respiratory: Present: [facility] Cardiology: regular, S1S2 Gastrointestinal: normal, no tenderness, no distended Integumentary: no rash, warm and dry Neurologic: other (agitated) Musculoskeletal: other (no edema) - Vital Signs Vital signs: Vital Signs - 12hr 07/27/20 07/27/20 07/27/20 00:00 01:00 02:00 Temperature 98.3 F Pulse Rate 93 H 97 H 97 H Pulse Rate [ 95 H Bilateral Throughout] Pulse Rate [ 95 H From Monitor] Respiratory 35 H 38 H 35 H Rate Respiratory 36 H Rate [Bilateral Throughout] Blood Pressure 142/71 149/71 144/69 O2 Sat by Pulse 100 99 99 Oximetry 07/27/20 07/27/20 07/27/20 03:00 03:12 04:00 Temperature 98.9 F Pulse Rate 89 94 H 93 H Pulse Rate [ Bilateral Throughout] Pulse Rate [ 95 H From Monitor] Respiratory 34 H 36 H 35 H Rate Respiratory Rate [Bilateral Throughout] Blood Pressure 147/90 137/62 149/83 O2 Sat by Pulse 100 100 100 Oximetry 07/27/20 07/27/20 07/27/20 04:29 05:00 06:00 Temperature Pulse Rate 97 H 98 H 99 H Pulse Rate [ Bilateral Throughout] Pulse Rate [ From Monitor] Respiratory 34 H 35 H 30 H Rate Respiratory Rate [Bilateral Throughout] Blood Pressure 149/83 145/79 147/78 O2 Sat by Pulse 99 99 100 Oximetry 07/27/20 07/27/20 07/27/20 07:00 08:00 08:23 Temperature 97.9 F Pulse Rate 105 H 113 H 111 H Pulse Rate [ 104 H Bilateral Throughout] Pulse Rate [ 95 H From Monitor] Respiratory 25 H 29 H 27 H Rate Respiratory 26 H Rate [Bilateral Throughout] Blood Pressure 156/81 146/69 146/74 O2 Sat by Pulse 99 99 99 Oximetry 07/27/20 07/27/20 07/27/20 09:00 10:00 11:00 Temperature Pulse Rate 103 H 99 H 101 H Pulse Rate [ Bilateral Throughout] Pulse Rate [ From Monitor] Respiratory 27 H 26 H 30 H Rate Respiratory Rate [Bilateral Throughout] Blood Pressure 146/74 142/82 142/78 O2 Sat by Pulse 99 99 99 Oximetry 07/27/20 11:08 Temperature Pulse Rate 104 H Pulse Rate [ Bilateral Throughout] Pulse Rate [ From Monitor] Respiratory 30 H Rate Respiratory Rate [Bilateral Throughout] Blood Pressure 142/78 O2 Sat by Pulse 99 Oximetry - Lab 07/27/20 Unknown 07/27/20 04:00 Most recent lab results ABG pH 7.523 (7.320-7.450) H 07/24/20 19:33 ABG O2 Saturation 95.6 (0-100) 07/24/20 19:33 Calcium 7.4 mg/dL (8.4-10.2) L 07/27/20 04:00 Phosphorus 2.70 mg/dL (2.5-4.5) 07/27/20 04:00 Magnesium 1.30 mg/dL (1.7-2.3) L 07/27/20 04:00 Urine Creatinine 40.4 mg/dL (0.1-20.0) H 07/26/20 07:14 Urine Sodium 10 mmol/L 07/21/20 Unknown Medications & Allergies - Medications Allergies/Adverse Reactions: Allergies Iodine and Iodide Containing Produc Adverse Reaction (Verified 10/26/18 10:10) Rash Home Medications: Home Medications Medication Instructions Recorded Confirmed Last Taken Type Ondansetron [Zofran TAB] 4 mg PO Q8HR PRN #15 tablet 07/17/17 Unknown Rx Ibuprofen [Motrin 600 MG tab] 600 mg PO Q8H PRN #30 tablet 01/18/18 Unknown Rx Sulfamethoxazole/Trimethoprim 1 each PO BID 10 Days #20 tablet 01/18/18 Unknown Rx [Bactrim DS TAB] cephALEXin [Keflex] 500 mg PO Q12HR #20 capsule 01/18/18 Unknown Rx Famotidine [Pepcid] 20 mg PO BID #10 tablet 05/17/18 Unknown Rx Mag Hydrox/Aluminum Hyd/Simeth 15 ml PO QID #1 oral.susp 05/17/18 Unknown Rx [Maalox Advanced Suspension] Ondansetron [Zofran ODT TAB] 8 mg PO Q12HR #20 tab.rapdis 05/17/18 Unknown Rx Acetaminophen/Codeine [Tylenol 1 tab PO Q6H PRN #12 tab 10/26/18 Unknown Rx /Codeine # 3 tab] Clindamycin [Clindamycin CAP] 300 mg PO Q8H #21 cap 10/26/18 Unknown Rx Esomeprazole Magnesium [NexIUM] 40 mg PO QDAY 20 Days #20 06/04/19 Unknown Rx capsule. ALPRAZolam [Xanax TAB] 2 mg PO Q8H 07/23/20 07/23/20 Unknown History Carisoprodol [Soma] 350 mg PO Q6H 07/23/20 07/23/20 Unknown History Ezetimibe [Zetia] 10 mg PO DAILY 07/23/20 07/23/20 Unknown History Gabapentin [Neurontin] 600 mg PO Q6H 07/23/20 07/23/20 Unknown History HYDROcodone/APAP 5-325 1 tab Q6H 07/23/20 07/23/20 Unknown History SUMAtriptan SUCCINATE [Imitrex] 100 mg PO Q2H PRN 07/23/20 07/23/20 Unknown History Active Medications: Generic Name Dose Route Start Last Admin Trade Name Freq PRN Reason Stop Dose Admin Acetaminophen 650 mg 07/20/20 22:51 Acetaminophen 325 Mg/10.15 Ml Oral Liqd Unit Dose FEEDTUBE Q6H PRN Pain MILD(1-3)/Fever >100.5/HESS Albuterol/Ipratropium 1 ampul 07/20/20 23:00 07/27/20 08:23 Ipratropium/Albuterol Sulfate 3 Ml Ampul.Neb IH 1 ampul Q6HRT HONEY Administration Alprazolam 2 mg 07/24/20 22:00 07/27/20 05:21 Alprazolam 1 Mg Tab PO 2 mg Q8HR HONEY Administration Lipase/Protease/Amylase 1 each 07/24/20 18:26 Lipase 10,500/Protease 25,000/Amylase 43,750 (Units) Dr [place] FEEDTUBE PRN PRN For Clogged Feeding Tube Dextrose 50 ml 07/26/20 10:10 Dextrose 50% In Water (25gm) 50 Ml Syringe IV Q30MIN PRN Hypoglycemia Protocol Famotidine 20 mg 07/20/20 23:00 07/27/20 10:45 Famotidine 20 Mg/2 Ml Inj IV 20 mg QAM HONEY Administration Haloperidol Lactate 5 mg 07/22/20 12:00 07/27/20 05:21 Haloperidol Lactate 5 Mg/1 Ml Inj IV 5 mg Q6H HONEY Administration Haloperidol Lactate 5 mg 07/23/20 17:24 Haloperidol Lactate 5 Mg/1 Ml Inj IV Q1HR PRN Unrespon. to mult. doses BZD's Hydralazine HCl 10 mg 07/22/20 23:25 07/24/20 15:02 Hydralazine 20 Mg/1 Ml Inj IV 10 mg Q6H PRN Administration Hypertension Folic Acid 1 mg/ Sodium 50.2 mls @ 200.8 mls/hr 07/23/20 18:00 07/26/20 09:14 Chloride IV 200 mls/hr QDAY HONEY Administration Thiamine HCl 100 mg/ Sodium 51 mls @ 100 mls/hr 07/23/20 18:00 07/27/20 10:45 Chloride IV 100 mls/hr QDAY HONEY Administration Amino Acids 2,000 mls @ 75 mls/hr 07/26/20 20:00 07/26/20 21:05 Clinimix 4.25%-10% Solution IV 07/27/20 19:59 75 mls/hr ONCE HONEY Administration Magnesium Sulfate 4 gm in 100 mls @ 25 mls/hr 07/27/20 09:00 07/27/20 10:44 Magnesium Sulfate 4gm/100ml IV 07/27/20 12:59 25 mls/hr ONCE ONE Administration Potassium Chloride 20 meq in 100 mls @ 100 mls/hr 07/27/20 09:00 07/27/20 10:45 Kcl 20meq/100ml IV 07/27/20 11:59 100 mls/hr Q1H HONEY Administration Insulin Human Regular 0 units 07/26/20 12:00 07/27/20 07:20 Insulin Regular, Human 100 Units/1 Ml SUB-Q Not Given Q6HR HONEY Protocol Lorazepam 2 mg 07/23/20 17:24 07/26/20 19:36 Lorazepam 2 Mg/Ml Vial IV 2 mg Q1HR PRN Administration CIWA-Ar 8-15 Lorazepam 4 mg 07/23/20 17:24 07/25/20 09:15 Lorazepam 2 Mg/Ml Vial IV 4 mg Q1HR PRN Administration CIWA-Ar 16-25 Lorazepam 4 mg 07/23/20 17:24 Lorazepam 2 Mg/Ml Vial IV Q15MIN PRN CIWA-Ar >25 Metoclopramide HCl 5 mg 07/20/20 22:51 Metoclopramide 10 Mg/2 Ml Inj IV Q6H PRN Nausea And Vomiting Simple Syrup 15 ml 07/24/20 18:26 Simple Syrup 15 Ml FEEDTUBE PRN PRN Hypoglycemia Simple Syrup 30 ml 07/24/20 18:26 Simple Syrup 15 Ml FEEDTUBE PRN PRN Hypoglycemia Sodium Bicarbonate 325 mg 07/24/20 18:26 Sodium Bicarbonate 325 Mg Tab FEEDTUBE PRN PRN For Clogged Feeding Tube Sodium Chloride 10 ml 07/21/20 10:00 07/27/20 10:46 Sodium Chloride 0.9% 10 Ml Flush Syringe IV 10 ml BID HONEY Administration Sodium Chloride 10 ml 07/20/20 22:51 07/25/20 05:01 Sodium Chloride 0.9% 10 Ml Flush Syringe IV 10 ml PRN PRN Administration LINE FLUSH
--- NOTE | 2020-07-27 12:24 | Progress Note ---
Assessment and Plan Cultures: 07/21/2020 COVID-19 PCR: Negative Hepatitis C antibody: Reactive 07/20/2020 blood culture: No growth 07/20/2020 urine culture: Klebsiella pneumoniae A/P: 65-year-old female with hepatitis C, hypertension, migraines admitted to the hospital with altered mental status, hypothermic, septic: #Sepsis: Likely secondary to UTI. UA with significant pyuria. Chest x-ray on admission revealed some interstitial edema, no dense air bronchograms as such. Remains on antibiotics. #Acute encephalopathy: Likely metabolic. Sodium was up to 163 initially. #DOREEN: Resolved #Acute resp failure: on BiPAP. #Chronic hepatitis C: Antibody positive. Treatment status unknown. Can be worked up as an outpatient. Recs: -completed Ceftriaxone yesterday -monitor off abx Fabiano Sanchez MD, FACP [facility] ([facility] O: [phone] F: [phone] Subjective Date of service: 07/27/20 Interval history: No fever. Remains on BiPAP. Objective - Exam Narrative Exam: Physical Exam: Constitutional: Encephalopathic, on BiPAP Head, Ears, Nose: Normocephalic, atraumatic. External ears, nose normal Eyes: Conjunctivae/corneas clear. No icterus. No ptosis. Neck: Limited due to BiPAP Oral: BiPAP Cardiovascular: S1, S2 normal. Respiratory: Good air entry, clear to auscultation bilaterally GI: Soft, non-tender; bowel sounds normal. No peritoneal signs Musculoskeletal: No pedal edema, no cyanosis. Skin: No rash or abscess Hem/Lymphatic: No palpable cervical or supraclavicular nodes. No lymphangitis Psych: encephalopathic Neurological: encephalopathic - Constitutional Vitals: Vital Signs Temp Pulse Resp BP Pulse Ox 97.9 F 95 H 36 H 151/69 99 07/27/20 08:00 07/27/20 12:00 07/27/20 12:00 07/27/20 12:00 07/27/20 12:00 Temperature -Last 24 Hours Temperature 97.9 F Temperature 98.9 F Temperature 98.3 F Temperature 98.7 F Temperature 97.8 F - Labs CBC & Chem 7: 07/27/20 Unknown 07/27/20 04:00 Labs: Abnormal lab results 07/26/20 07/26/20 07/26/20 Range/Units 07:14 14:50 18:32 WBC (4.5-11.0) K/mm3 RBC (3.65-5.03) M/mm3 Hct (30.3-42.9) % MCV (79-97) fl MCH (28-32) pg Plt Count (140-440) K/mm3 Potassium (3.6-5.0) mmol/L Carbon Dioxide (22-30) mmol/L Creatinine (0.6-1.2) mg/dL Glucose (65-100) mg/dL POC Glucose 44 L (70-105) mg/dL Calcium (8.4-10.2) mg/dL Magnesium (1.7-2.3) mg/dL Vitamin B12 1235 H (211-911) pg/mL Urine Creatinine 40.4 H (0.1-20.0) mg/dL 07/26/20 07/26/20 07/27/20 Range/Units 18:34 23:11 04:00 WBC (4.5-11.0) K/mm3 RBC (3.65-5.03) M/mm3 Hct (30.3-42.9) % MCV (79-97) fl MCH (28-32) pg Plt Count (140-440) K/mm3 Potassium 3.2 L (3.6-5.0) mmol/L Carbon Dioxide 37 H (22-30) mmol/L Creatinine 0.3 L (0.6-1.2) mg/dL Glucose 120 H (65-100) mg/dL POC Glucose 106 H 112 H (70-105) mg/dL Calcium 7.4 L (8.4-10.2) mg/dL Magnesium 1.30 L (1.7-2.3) mg/dL Vitamin B12 (211-911) pg/mL Urine Creatinine (0.1-20.0) mg/dL 07/27/20 07/27/20 Range/Units 05:17 Unknown WBC 11.2 H (4.5-11.0) K/mm3 RBC 3.02 L (3.65-5.03) M/mm3 Hct 30.1 L (30.3-42.9) % MCV 100 H (79-97) fl MCH 33 H (28-32) pg Plt Count 77 L (140-440) K/mm3 Potassium (3.6-5.0) mmol/L Carbon Dioxide (22-30) mmol/L Creatinine (0.6-1.2) mg/dL Glucose (65-100) mg/dL POC Glucose 123 H (70-105) mg/dL Calcium (8.4-10.2) mg/dL Magnesium (1.7-2.3) mg/dL Vitamin B12 (211-911) pg/mL Urine Creatinine (0.1-20.0) mg/dL
[2020-07-27] MEDS: FOLIC ACID 1 MG in SODIUM CHLORIDE 0.9% 50 ML IV SCH (12:27)
--- NOTE | 2020-07-27 14:38 | Progress Note ---
Assessment and Plan 65 y/o female with altered mental state, hypotension, renal failure and electrolyte imbalance with UTI seen on urine analysis and presumptive sepsis with distributive shock. 07/27/20: could be post ATN diuresis vs SIADH. Will monitor volume closely. May need to obtain CT of head with contrast to make sure no new abnormalities are present. Will get family to assess with screening form for MRI. EEG should be ordered. Continue bipap but have no objection to trying Vaportherm later today if tolerates, continue bipap at night and PRN. Tolerating PPN. If able to wean off bipap can use NG tube for feeds until mental status improves, if it does. Guarded prognosis. 07/26/20: Picc placement going on now. Will start PPN after that and then stop D5 drip. If able to wean off bipap can start Tube feeds tomorrow once bag of PPN finished. LTACH referral in place. Suggest neurology consult as well. Will check B12 and folate levels. Guarded prognosis. Would like to obtain CT of chest when able to be more compliant and more stable in scanner. 07/24/20: Will attempt to wean bipap therapy for sats >88%. Slowed rate of D5 down to not correct Na to fast. Suggest starting patient on PPN until bipap can be weaned off. She is very high risk for aspiration with NG tube feeds and continuous bipap therapy. More calm with PRN ativan therapy so will continue. BP elevated but no fever, still could be withdrawing from ETOH. Discussed on rounds and will see if patient is an LTACH candidate. 07/23/20: Will transfer to floor given her AND status. Family is still making decisions. Discussed with IM and they agree. WIll see PRN on the floor. Very poor prognosis. 07/22/20: Stop maintenance. Continue current abx therapy. Will start scheduled haldol therapy to see if this will hep mental sate. Suggest continuation of bicarb drip and will give a couple of amps of bicarb today. Follow up renal recs. Patient has moderate pulmonary hypertension seen on echo. Will obtain lung history once more awake or from . Could be related to underlying lung disease. CXR maybe more consistent with ILD than pulmonary edema. Will obtain CT of chest when more stable. Remove central line today and obtain peripheral access. Maybe stable enough for step down, will discuss on rounds. Can stop q6 hour BMP's. ONce off bipap can assess nutrition. 1. Needs more fluid resuscitation. Ordered for 2 more liters of saline now and additional to be bolused after rounds today 2. Agree with broad spec abx therapy follow up on cultures of urine and blood 3. Currently on bipap but hopeful we can wean as tolerated given improvement in mental status. 4. Spoke with renal and they agree with more volume and chemical management of hyperkalemia 5. Given CXR appearance and no other imaging, will obtain 2D echo as well. her hypotension could be from sepsis but need to make sure cardiac function is ok. She may need inotropic help with pressor requirement does not improve. 6. Continue to assess volume throughout the day 7. CMP q6 hours to monitor sodium and other electrolytes 8. ordered picc but likely will not happen today. continue right femoral groin line. 9. Hold on feeds given her pressor requirement and bipap requirement 10. DVT and GI prophylaxis. Guarded prognosis. CCT 31 minutes. Subjective Date of service: 07/27/20 Interval history: Down to 45% now on Bipap with good sats. Still labored breathing. mental status is stable. Neuro has seen and recommended MRI and EEG. Also urine output has increased tremendously in the last 24 hours. BP is stable. Objective Vital Signs - 12hr 07/27/20 07/27/20 07/27/20 03:00 03:12 04:00 Temperature 98.9 F Pulse Rate 89 94 H 93 H Pulse Rate [ Bilateral Throughout] Pulse Rate [ 95 H From Monitor] Respiratory 34 H 36 H 35 H Rate Respiratory Rate [Bilateral Throughout] Blood Pressure 147/90 137/62 149/83 O2 Sat by Pulse 100 100 100 Oximetry 07/27/20 07/27/20 07/27/20 04:29 05:00 06:00 Temperature Pulse Rate 97 H 98 H 99 H Pulse Rate [ Bilateral Throughout] Pulse Rate [ From Monitor] Respiratory 34 H 35 H 30 H Rate Respiratory Rate [Bilateral Throughout] Blood Pressure 149/83 145/79 147/78 O2 Sat by Pulse 99 99 100 Oximetry 07/27/20 07/27/20 07/27/20 07:00 08:00 08:23 Temperature 97.9 F Pulse Rate 105 H 113 H 111 H Pulse Rate [ 104 H Bilateral Throughout] Pulse Rate [ 95 H From Monitor] Respiratory 25 H 29 H 27 H Rate Respiratory 26 H Rate [Bilateral Throughout] Blood Pressure 156/81 146/69 146/74 O2 Sat by Pulse 99 99 99 Oximetry 07/27/20 07/27/20 07/27/20 09:00 10:00 11:00 Temperature Pulse Rate 103 H 99 H 101 H Pulse Rate [ Bilateral Throughout] Pulse Rate [ From Monitor] Respiratory 27 H 26 H 30 H Rate Respiratory Rate [Bilateral Throughout] Blood Pressure 146/74 142/82 142/78 O2 Sat by Pulse 99 99 99 Oximetry 07/27/20 07/27/20 07/27/20 11:08 12:00 13:00 Temperature 97.9 F Pulse Rate 104 H 104 H 107 H Pulse Rate [ Bilateral Throughout] Pulse Rate [ 95 H From Monitor] Respiratory 30 H 29 H 30 H Rate Respiratory Rate [Bilateral Throughout] Blood Pressure 142/78 151/69 152/78 O2 Sat by Pulse 99 98 98 Oximetry CBC and BMP: 07/27/20 Unknown 07/27/20 04:00 ABG, PT/INR, D-dimer: ABG ABG pH 7.523 (7.320-7.450) H 07/24/20 19:33 POC ABG pCO2 41.7 mmHg (32.0-48.0) 07/24/20 19:33 POC ABG pO2 76.4 mmHg (83-108) L 07/24/20 19:33 POC ABG HCO3 33.5 07/24/20 19:33 ABG O2 Saturation 95.6 (0-100) 07/24/20 19:33 PT/INR, D-dimer PT 20.1 Sec. (12.2-14.9) H 07/20/20 19:32 INR 1.72 (0.87-1.13) H 07/20/20 19:32 D-Dimer 2098.49 ng/mlDDU (0-234) H 07/20/20 21:59 Abnormal lab findings: Abnormal Labs 07/20/20 07/20/20 07/20/20 19:20 19:27 19:27 WBC 17.9 H RBC Hgb Hct MCV 102 H MCH 33 H Plt Count Lymph % (Auto) 4.4 L Lymph # (Auto) 0.8 L Baso # (Auto) 0.3 H Seg Neutrophils % 90.0 H Lymphocytes % (Manual) Seg Neutrophils # 16.1 H Seg Neutrophils # Man Lymphocytes # (Manual) PT INR D-Dimer ABG pH POC ABG pO2 ABG Hemoglobin ABG Oxyhemoglobin ABG Sodium ABG Potassium ABG Chloride ABG Glucose Sodium 130 L Potassium 5.6 H Chloride 84.4 L Carbon Dioxide 14 L BUN 108 H Creatinine 7.7 H Glucose POC Glucose 55 L Lactic Acid Calcium 7.4 L Phosphorus Magnesium Ferritin AST 306 H ALT 97 H Ammonia Lactate Dehydrogenase Total Creatine Kinase CK-MB (CK-2) C-Reactive Protein Total Protein Albumin 3.3 L Vitamin B12 Arterial Blood Glucose Arterial Blood Ionized Calcium Urine WBC (Auto) Urine Creatinine Hepatitis C Antibody 07/20/20 07/20/20 07/20/20 19:27 19:27 19:32 WBC RBC Hgb Hct MCV MCH Plt Count Lymph % (Auto) Lymph # (Auto) Baso # (Auto) Seg Neutrophils % Lymphocytes % (Manual) Seg Neutrophils # Seg Neutrophils # Man Lymphocytes # (Manual) PT 20.1 H INR 1.72 H D-Dimer ABG pH POC ABG pO2 ABG Hemoglobin ABG Oxyhemoglobin ABG Sodium ABG Potassium ABG Chloride ABG Glucose Sodium Potassium Chloride Carbon Dioxide BUN Creatinine Glucose POC Glucose Lactic Acid 3.10 H* Calcium Phosphorus Magnesium Ferritin AST ALT Ammonia Lactate Dehydrogenase Total Creatine Kinase 42893 H CK-MB (CK-2) 289.0 H C-Reactive Protein Total Protein Albumin Vitamin B12 Arterial Blood Glucose Arterial Blood Ionized Calcium Urine WBC (Auto) Urine Creatinine Hepatitis C Antibody 07/20/20 07/20/20 07/20/20 19:52 19:59 20:41 WBC RBC Hgb Hct MCV MCH Plt Count Lymph % (Auto) Lymph # (Auto) Baso # (Auto) Seg Neutrophils % Lymphocytes % (Manual) Seg Neutrophils # Seg Neutrophils # Man Lymphocytes # (Manual) PT INR D-Dimer ABG pH 7.016 L POC ABG pO2 55.7 L ABG Hemoglobin ABG Oxyhemoglobin 81.6 L ABG Sodium 129.0 L ABG Potassium 5.0 H ABG Chloride ABG Glucose 157 H Sodium Potassium Chloride Carbon Dioxide BUN Creatinine Glucose POC Glucose 108 H Lactic Acid Calcium Phosphorus Magnesium Ferritin AST ALT Ammonia Lactate Dehydrogenase Total Creatine Kinase CK-MB (CK-2) C-Reactive Protein Total Protein Albumin Vitamin B12 Arterial Blood Glucose 157 H Arterial Blood Ionized Calcium 3.9 L Urine WBC (Auto) > 182.0 H Urine Creatinine Hepatitis C Antibody 07/20/20 07/20/20 07/20/20 21:59 21:59 21:59 WBC RBC Hgb Hct MCV MCH Plt Count Lymph % (Auto) Lymph # (Auto) Baso # (Auto) Seg Neutrophils % Lymphocytes % (Manual) Seg Neutrophils # Seg Neutrophils # Man Lymphocytes # (Manual) PT INR D-Dimer 2098.49 H ABG pH POC ABG pO2 ABG Hemoglobin ABG Oxyhemoglobin ABG Sodium ABG Potassium ABG Chloride ABG Glucose Sodium Potassium Chloride Carbon Dioxide BUN Creatinine Glucose POC Glucose Lactic Acid Calcium Phosphorus Magnesium Ferritin 1648.0 H AST ALT Ammonia Lactate Dehydrogenase 732 H Total Creatine Kinase CK-MB (CK-2) C-Reactive Protein 37.90 H Total Protein Albumin Vitamin B12 Arterial Blood Glucose Arterial Blood Ionized Calcium Urine WBC (Auto) Urine Creatinine Hepatitis C Antibody 07/20/20 07/21/20 07/21/20 23:35 01:56 04:00 WBC 15.1 H RBC 3.52 L Hgb Hct MCV 100 H MCH 33 H Plt Count Lymph % (Auto) Lymph # (Auto) Baso # (Auto) Seg Neutrophils % Lymphocytes % (Manual) 2.0 L Seg Neutrophils # Seg Neutrophils # Man 9.4 H Lymphocytes # (Manual) 0.3 L PT INR D-Dimer ABG pH POC ABG pO2 ABG Hemoglobin ABG Oxyhemoglobin ABG Sodium ABG Potassium ABG Chloride ABG Glucose Sodium Potassium 5.8 H Chloride 95.4 L Carbon Dioxide 17 L BUN 100 H Creatinine 6.8 H Glucose 61 L POC Glucose 138 H Lactic Acid Calcium 6.3 L Phosphorus Magnesium Ferritin AST ALT Ammonia Lactate Dehydrogenase Total Creatine Kinase CK-MB (CK-2) C-Reactive Protein Total Protein Albumin Vitamin B12 Arterial Blood Glucose Arterial Blood Ionized Calcium Urine WBC (Auto) Urine Creatinine Hepatitis C Antibody 07/21/20 07/21/20 07/21/20 04:00 05:24 06:06 WBC RBC Hgb Hct MCV MCH Plt Count Lymph % (Auto) Lymph # (Auto) Baso # (Auto) Seg Neutrophils % Lymphocytes % (Manual) Seg Neutrophils # Seg Neutrophils # Man Lymphocytes # (Manual) PT INR D-Dimer ABG pH POC ABG pO2 ABG Hemoglobin ABG Oxyhemoglobin ABG Sodium ABG Potassium ABG Chloride ABG Glucose Sodium Potassium 6.1 H* Chloride 97.2 L Carbon Dioxide 21 L BUN 104 H Creatinine 6.7 H Glucose POC Glucose 121 H 124 H Lactic Acid Calcium 6.5 L Phosphorus Magnesium Ferritin AST ALT Ammonia Lactate Dehydrogenase Total Creatine Kinase CK-MB (CK-2) C-Reactive Protein Total Protein Albumin Vitamin B12 Arterial Blood Glucose Arterial Blood Ionized Calcium Urine WBC (Auto) Urine Creatinine Hepatitis C Antibody 07/21/20 07/21/20 07/21/20 06:58 07:58 08:20 WBC RBC Hgb Hct MCV MCH Plt Count Lymph % (Auto) Lymph # (Auto) Baso # (Auto) Seg Neutrophils % Lymphocytes % (Manual) Seg Neutrophils # Seg Neutrophils # Man Lymphocytes # (Manual) PT INR D-Dimer ABG pH POC ABG pO2 ABG Hemoglobin ABG Oxyhemoglobin ABG Sodium ABG Potassium ABG Chloride ABG Glucose Sodium Potassium Chloride Carbon Dioxide BUN Creatinine Glucose POC Glucose 128 H 133 H Lactic Acid Calcium Phosphorus Magnesium Ferritin AST ALT Ammonia Lactate Dehydrogenase Total Creatine Kinase 82772 H CK-MB (CK-2) C-Reactive Protein Total Protein Albumin Vitamin B12 Arterial Blood Glucose Arterial Blood Ionized Calcium Urine WBC (Auto) Urine Creatinine Hepatitis C Antibody 07/21/20 07/21/20 07/21/20 09:15 09:31 10:09 WBC RBC Hgb Hct MCV MCH Plt Count Lymph % (Auto) Lymph # (Auto) Baso # (Auto) Seg Neutrophils % Lymphocytes % (Manual) Seg Neutrophils # Seg Neutrophils # Man Lymphocytes # (Manual) PT INR D-Dimer ABG pH 7.239 L POC ABG pO2 70.1 L ABG Hemoglobin 11.4 L ABG Oxyhemoglobin 92.6 L ABG Sodium 135.2 L ABG Potassium 5.1 H ABG Chloride ABG Glucose 147 H Sodium Potassium Chloride Carbon Dioxide BUN Creatinine Glucose POC Glucose 129 H Lactic Acid Calcium Phosphorus Magnesium Ferritin AST ALT Ammonia 24.0 L Lactate Dehydrogenase Total Creatine Kinase CK-MB (CK-2) C-Reactive Protein Total Protein Albumin Vitamin B12 Arterial Blood Glucose 147 H Arterial Blood Ionized Calcium 3.4 L Urine WBC (Auto) Urine Creatinine Hepatitis C Antibody 07/21/20 07/21/20 07/21/20 12:55 14:19 17:20 WBC RBC Hgb Hct MCV MCH Plt Count Lymph % (Auto) Lymph # (Auto) Baso # (Auto) Seg Neutrophils % Lymphocytes % (Manual) Seg Neutrophils # Seg Neutrophils # Man Lymphocytes # (Manual) PT INR D-Dimer ABG pH POC ABG pO2 ABG Hemoglobin ABG Oxyhemoglobin ABG Sodium ABG Potassium ABG Chloride ABG Glucose Sodium Potassium Chloride Carbon Dioxide 20 L BUN 88 H Creatinine 4.0 H Glucose 166 H POC Glucose 157 H 172 H Lactic Acid Calcium 6.0 L Phosphorus Magnesium Ferritin AST ALT Ammonia Lactate Dehydrogenase Total Creatine Kinase CK-MB (CK-2) C-Reactive Protein Total Protein Albumin Vitamin B12 Arterial Blood Glucose Arterial Blood Ionized Calcium Urine WBC (Auto) Urine Creatinine Hepatitis C Antibody 07/21/20 07/21/20 07/21/20 17:30 20:59 23:59 WBC RBC Hgb Hct MCV MCH Plt Count Lymph % (Auto) Lymph # (Auto) Baso # (Auto) Seg Neutrophils % Lymphocytes % (Manual) Seg Neutrophils # Seg Neutrophils # Man Lymphocytes # (Manual) PT INR D-Dimer ABG pH 7.174 L POC ABG pO2 69.3 L ABG Hemoglobin 11.9 L ABG Oxyhemoglobin 91.0 L ABG Sodium 134.0 L ABG Potassium 5.4 H ABG Chloride ABG Glucose 60 L Sodium Potassium Chloride 110.0 H Carbon Dioxide 21 L BUN 72 H Creatinine 2.7 H Glucose 175 H POC Glucose 122 H Lactic Acid Calcium 5.6 L* Phosphorus Magnesium Ferritin AST ALT Ammonia Lactate Dehydrogenase Total Creatine Kinase CK-MB (CK-2) C-Reactive Protein Total Protein Albumin Vitamin B12 Arterial Blood Glucose 60 L Arterial Blood Ionized Calcium 3.6 L Urine WBC (Auto) Urine Creatinine Hepatitis C Antibody 07/21/20 07/22/20 07/22/20 Unknown 02:00 02:03 WBC RBC Hgb Hct MCV MCH Plt Count Lymph % (Auto) Lymph # (Auto) Baso # (Auto) Seg Neutrophils % Lymphocytes % (Manual) Seg Neutrophils # Seg Neutrophils # Man Lymphocytes # (Manual) PT INR D-Dimer ABG pH POC ABG pO2 ABG Hemoglobin ABG Oxyhemoglobin ABG Sodium ABG Potassium ABG Chloride ABG Glucose Sodium 146 H Potassium Chloride 109.9 H Carbon Dioxide BUN 56 H Creatinine 1.6 H Glucose 125 H POC Glucose 113 H Lactic Acid Calcium 6.5 L D Phosphorus Magnesium Ferritin AST ALT Ammonia Lactate Dehydrogenase Total Creatine Kinase CK-MB (CK-2) C-Reactive Protein Total Protein Albumin Vitamin B12 Arterial Blood Glucose Arterial Blood Ionized Calcium Urine WBC (Auto) 28.0 H Urine Creatinine Hepatitis C Antibody 07/22/20 07/22/20 07/22/20 05:00 06:27 09:44 WBC RBC 3.11 L Hgb Hct MCV 99 H MCH 34 H Plt Count 86 L Lymph % (Auto) Lymph # (Auto) Baso # (Auto) Seg Neutrophils % Lymphocytes % (Manual) Seg Neutrophils # Seg Neutrophils # Man Lymphocytes # (Manual) PT INR D-Dimer ABG pH POC ABG pO2 ABG Hemoglobin ABG Oxyhemoglobin ABG Sodium ABG Potassium ABG Chloride ABG Glucose Sodium 148 H Potassium Chloride 111.3 H Carbon Dioxide BUN 53 H Creatinine 1.4 H Glucose 135 H POC Glucose 122 H Lactic Acid Calcium 7.2 L Phosphorus Magnesium Ferritin AST ALT Ammonia Lactate Dehydrogenase Total Creatine Kinase CK-MB (CK-2) C-Reactive Protein Total Protein Albumin Vitamin B12 Arterial Blood Glucose Arterial Blood Ionized Calcium Urine WBC (Auto) Urine Creatinine Hepatitis C Antibody 07/22/20 07/22/20 07/22/20 11:00 11:56 21:18 WBC RBC Hgb Hct MCV MCH Plt Count Lymph % (Auto) Lymph # (Auto) Baso # (Auto) Seg Neutrophils % Lymphocytes % (Manual) Seg Neutrophils # Seg Neutrophils # Man Lymphocytes # (Manual) PT INR D-Dimer ABG pH POC ABG pO2 73.5 L ABG Hemoglobin 11.1 L ABG Oxyhemoglobin ABG Sodium 145.8 H ABG Potassium ABG Chloride 114.0 H ABG Glucose 125 H Sodium Potassium Chloride Carbon Dioxide BUN Creatinine Glucose POC Glucose 126 H 126 H Lactic Acid Calcium Phosphorus Magnesium Ferritin AST ALT Ammonia Lactate Dehydrogenase Total Creatine Kinase CK-MB (CK-2) C-Reactive Protein Total Protein Albumin Vitamin B12 Arterial Blood Glucose 125 H Arterial Blood Ionized Calcium 4.2 L Urine WBC (Auto) Urine Creatinine Hepatitis C Antibody 07/23/20 07/23/20 07/23/20 01:43 04:48 04:48 WBC 13.2 H RBC 3.47 L Hgb Hct MCV 99 H MCH 33 H Plt Count 98 L Lymph % (Auto) Lymph # (Auto) Baso # (Auto) Seg Neutrophils % Lymphocytes % (Manual) Seg Neutrophils # Seg Neutrophils # Man Lymphocytes # (Manual) PT INR D-Dimer ABG pH POC ABG pO2 ABG Hemoglobin ABG Oxyhemoglobin ABG Sodium ABG Potassium ABG Chloride ABG Glucose Sodium 155 H Potassium 3.1 L D Chloride 112.2 H Carbon Dioxide BUN 34 H Creatinine Glucose 143 H POC Glucose 146 H Lactic Acid Calcium 7.8 L Phosphorus Magnesium Ferritin AST ALT Ammonia Lactate Dehydrogenase Total Creatine Kinase CK-MB (CK-2) C-Reactive Protein Total Protein Albumin Vitamin B12 Arterial Blood Glucose Arterial Blood Ionized Calcium Urine WBC (Auto) Urine Creatinine Hepatitis C Antibody 07/23/20 07/23/20 07/23/20 05:32 11:49 14:33 WBC RBC Hgb Hct MCV MCH Plt Count Lymph % (Auto) Lymph # (Auto) Baso # (Auto) Seg Neutrophils % Lymphocytes % (Manual) Seg Neutrophils # Seg Neutrophils # Man Lymphocytes # (Manual) PT INR D-Dimer ABG pH POC ABG pO2 ABG Hemoglobin ABG Oxyhemoglobin ABG Sodium ABG Potassium ABG Chloride ABG Glucose Sodium 157 H Potassium 3.5 L Chloride 115.0 H Carbon Dioxide 32 H BUN 34 H Creatinine Glucose 119 H POC Glucose 149 H 112 H Lactic Acid Calcium Phosphorus Magnesium Ferritin AST ALT Ammonia Lactate Dehydrogenase Total Creatine Kinase CK-MB (CK-2) C-Reactive Protein Total Protein Albumin Vitamin B12 Arterial Blood Glucose Arterial Blood Ionized Calcium Urine WBC (Auto) Urine Creatinine Hepatitis C Antibody 07/23/20 07/23/20 07/23/20 17:33 17:33 17:33 WBC RBC Hgb Hct MCV MCH Plt Count Lymph % (Auto) Lymph # (Auto) Baso # (Auto) Seg Neutrophils % Lymphocytes % (Manual) Seg Neutrophils # Seg Neutrophils # Man Lymphocytes # (Manual) PT INR D-Dimer ABG pH POC ABG pO2 ABG Hemoglobin ABG Oxyhemoglobin ABG Sodium ABG Potassium ABG Chloride ABG Glucose Sodium Potassium Chloride Carbon Dioxide BUN Creatinine Glucose POC Glucose Lactic Acid Calcium Phosphorus 1.80 L Magnesium Ferritin AST 158 H ALT 96 H Ammonia Lactate Dehydrogenase Total Creatine Kinase CK-MB (CK-2) C-Reactive Protein Total Protein 6.2 L Albumin 2.9 L Vitamin B12 Arterial Blood Glucose Arterial Blood Ionized Calcium Urine WBC (Auto) Urine Creatinine Hepatitis C Antibody Reactive A 07/24/20 07/24/20 07/24/20 02:17 05:20 05:29 WBC RBC Hgb Hct MCV MCH Plt Count Lymph % (Auto) Lymph # (Auto) Baso # (Auto) Seg Neutrophils % Lymphocytes % (Manual) Seg Neutrophils # Seg Neutrophils # Man Lymphocytes # (Manual) PT INR D-Dimer ABG pH POC ABG pO2 ABG Hemoglobin ABG Oxyhemoglobin ABG Sodium ABG Potassium ABG Chloride ABG Glucose Sodium 163 H* Potassium Chloride 118.6 H Carbon Dioxide BUN 33 H Creatinine Glucose 118 H POC Glucose 106 H 111 H Lactic Acid Calcium 7.9 L Phosphorus Magnesium Ferritin AST ALT Ammonia Lactate Dehydrogenase Total Creatine Kinase CK-MB (CK-2) C-Reactive Protein Total Protein Albumin Vitamin B12 Arterial Blood Glucose Arterial Blood Ionized Calcium Urine WBC (Auto) Urine Creatinine Hepatitis C Antibody 07/24/20 07/24/20 07/24/20 08:00 11:52 14:43 WBC RBC Hgb Hct MCV MCH Plt Count Lymph % (Auto) Lymph # (Auto) Baso # (Auto) Seg Neutrophils % Lymphocytes % (Manual) Seg Neutrophils # Seg Neutrophils # Man Lymphocytes # (Manual) PT INR D-Dimer ABG pH POC ABG pO2 ABG Hemoglobin ABG Oxyhemoglobin ABG Sodium ABG Potassium ABG Chloride ABG Glucose Sodium 155 H Potassium 3.5 L Chloride 112.7 H Carbon Dioxide 32 H BUN 28 H Creatinine Glucose 125 H POC Glucose 109 H 118 H Lactic Acid Calcium 8.2 L Phosphorus Magnesium Ferritin AST ALT Ammonia Lactate Dehydrogenase Total Creatine Kinase CK-MB (CK-2) C-Reactive Protein Total Protein Albumin Vitamin B12 Arterial Blood Glucose Arterial Blood Ionized Calcium Urine WBC (Auto) Urine Creatinine Hepatitis C Antibody 07/24/20 07/24/20 07/24/20 16:52 19:33 23:02 WBC RBC Hgb Hct MCV MCH Plt Count Lymph % (Auto) Lymph # (Auto) Baso # (Auto) Seg Neutrophils % Lymphocytes % (Manual) Seg Neutrophils # Seg Neutrophils # Man Lymphocytes # (Manual) PT INR D-Dimer ABG pH 7.523 H POC ABG pO2 76.4 L ABG Hemoglobin 10.3 L ABG Oxyhemoglobin ABG Sodium 151.2 H ABG Potassium 2.4 L ABG Chloride 111.0 H ABG Glucose 125 H Sodium Potassium Chloride Carbon Dioxide BUN Creatinine Glucose POC Glucose 111 H 127 H Lactic Acid Calcium Phosphorus Magnesium Ferritin AST ALT Ammonia Lactate Dehydrogenase Total Creatine Kinase CK-MB (CK-2) C-Reactive Protein Total Protein Albumin Vitamin B12 Arterial Blood Glucose 125 H Arterial Blood Ionized Calcium 4.3 L Urine WBC (Auto) Urine Creatinine Hepatitis C Antibody 07/25/20 07/25/20 07/25/20 02:12 05:15 05:15 WBC 12.0 H RBC 3.11 L Hgb Hct MCV 99 H MCH 33 H Plt Count 77 L Lymph % (Auto) 9.5 L Lymph # (Auto) 1.1 L Baso # (Auto) Seg Neutrophils % 88.2 H Lymphocytes % (Manual) Seg Neutrophils # 10.6 H Seg Neutrophils # Man Lymphocytes # (Manual) PT INR D-Dimer ABG pH POC ABG pO2 ABG Hemoglobin ABG Oxyhemoglobin ABG Sodium ABG Potassium ABG Chloride ABG Glucose Sodium 152 H Potassium 2.6 L* D Chloride 109.5 H Carbon Dioxide 34 H BUN 21 H Creatinine 0.5 L Glucose 124 H POC Glucose 124 H Lactic Acid Calcium 7.7 L Phosphorus Magnesium Ferritin AST ALT Ammonia Lactate Dehydrogenase Total Creatine Kinase CK-MB (CK-2) C-Reactive Protein Total Protein Albumin Vitamin B12 Arterial Blood Glucose Arterial Blood Ionized Calcium Urine WBC (Auto) Urine Creatinine Hepatitis C Antibody 07/25/20 07/25/20 07/25/20 05:42 14:35 14:35 WBC RBC Hgb Hct MCV MCH Plt Count Lymph % (Auto) Lymph # (Auto) Baso # (Auto) Seg Neutrophils % Lymphocytes % (Manual) Seg Neutrophils # Seg Neutrophils # Man Lymphocytes # (Manual) PT INR D-Dimer ABG pH POC ABG pO2 ABG Hemoglobin ABG Oxyhemoglobin ABG Sodium ABG Potassium ABG Chloride ABG Glucose Sodium 151 H Potassium 3.4 L D Chloride 109.7 H Carbon Dioxide 31 H BUN Creatinine 0.5 L Glucose POC Glucose 108 H Lactic Acid Calcium 7.7 L Phosphorus 1.70 L Magnesium Ferritin AST ALT Ammonia Lactate Dehydrogenase Total Creatine Kinase CK-MB (CK-2) C-Reactive Protein Total Protein Albumin Vitamin B12 Arterial Blood Glucose Arterial Blood Ionized Calcium Urine WBC (Auto) Urine Creatinine Hepatitis C Antibody 07/25/20 07/25/20 07/26/20 18:29 21:07 04:00 WBC RBC Hgb Hct MCV MCH Plt Count Lymph % (Auto) Lymph # (Auto) Baso # (Auto) Seg Neutrophils % Lymphocytes % (Manual) Seg Neutrophils # Seg Neutrophils # Man Lymphocytes # (Manual) PT INR D-Dimer ABG pH POC ABG pO2 ABG Hemoglobin ABG Oxyhemoglobin ABG Sodium ABG Potassium ABG Chloride ABG Glucose Sodium 147 H 146 H Potassium 3.3 L D Chloride Carbon Dioxide 35 H BUN Creatinine 0.4 L 0.4 L Glucose 122 H 114 H POC Glucose 120 H Lactic Acid Calcium 7.5 L 7.3 L Phosphorus Magnesium Ferritin AST 74 H ALT 79 H Ammonia Lactate Dehydrogenase Total Creatine Kinase CK-MB (CK-2) C-Reactive Protein Total Protein 5.0 L Albumin 2.5 L Vitamin B12 Arterial Blood Glucose Arterial Blood Ionized Calcium Urine WBC (Auto) Urine Creatinine Hepatitis C Antibody 07/26/20 07/26/20 07/26/20 07:14 14:50 18:32 WBC RBC Hgb Hct MCV MCH Plt Count Lymph % (Auto) Lymph # (Auto) Baso # (Auto) Seg Neutrophils % Lymphocytes % (Manual) Seg Neutrophils # Seg Neutrophils # Man Lymphocytes # (Manual) PT INR D-Dimer ABG pH POC ABG pO2 ABG Hemoglobin ABG Oxyhemoglobin ABG Sodium ABG Potassium ABG Chloride ABG Glucose Sodium Potassium Chloride Carbon Dioxide BUN Creatinine Glucose POC Glucose 44 L Lactic Acid Calcium Phosphorus Magnesium Ferritin AST ALT Ammonia Lactate Dehydrogenase Total Creatine Kinase CK-MB (CK-2) C-Reactive Protein Total Protein Albumin Vitamin B12 1235 H Arterial Blood Glucose Arterial Blood Ionized Calcium Urine WBC (Auto) Urine Creatinine 40.4 H Hepatitis C Antibody 07/26/20 07/26/20 07/26/20 18:34 23:11 Unknown WBC 12.6 H RBC 2.92 L Hgb 9.8 L Hct 29.3 L MCV 100 H MCH 34 H Plt Count 73 L Lymph % (Auto) Lymph # (Auto) Baso # (Auto) Seg Neutrophils % Lymphocytes % (Manual) Seg Neutrophils # Seg Neutrophils # Man Lymphocytes # (Manual) PT INR D-Dimer ABG pH POC ABG pO2 ABG Hemoglobin ABG Oxyhemoglobin ABG Sodium ABG Potassium ABG Chloride ABG Glucose Sodium Potassium Chloride Carbon Dioxide BUN Creatinine Glucose POC Glucose 106 H 112 H Lactic Acid Calcium Phosphorus Magnesium Ferritin AST ALT Ammonia Lactate Dehydrogenase Total Creatine Kinase CK-MB (CK-2) C-Reactive Protein Total Protein Albumin Vitamin B12 Arterial Blood Glucose Arterial Blood Ionized Calcium Urine WBC (Auto) Urine Creatinine Hepatitis C Antibody 07/27/20 07/27/20 07/27/20 04:00 05:17 11:33 WBC RBC Hgb Hct MCV MCH Plt Count Lymph % (Auto) Lymph # (Auto) Baso # (Auto) Seg Neutrophils % Lymphocytes % (Manual) Seg Neutrophils # Seg Neutrophils # Man Lymphocytes # (Manual) PT INR D-Dimer ABG pH POC ABG pO2 ABG Hemoglobin ABG Oxyhemoglobin ABG Sodium ABG Potassium ABG Chloride ABG Glucose Sodium Potassium 3.2 L Chloride Carbon Dioxide 37 H BUN Creatinine 0.3 L Glucose 120 H POC Glucose 123 H 125 H Lactic Acid Calcium 7.4 L Phosphorus Magnesium 1.30 L Ferritin AST ALT Ammonia Lactate Dehydrogenase Total Creatine Kinase CK-MB (CK-2) C-Reactive Protein Total Protein Albumin Vitamin B12 Arterial Blood Glucose Arterial Blood Ionized Calcium Urine WBC (Auto) Urine Creatinine Hepatitis C Antibody 07/27/20 Unknown WBC 11.2 H RBC 3.02 L Hgb Hct 30.1 L MCV 100 H MCH 33 H Plt Count 77 L Lymph % (Auto) Lymph # (Auto) Baso # (Auto) Seg Neutrophils % Lymphocytes % (Manual) Seg Neutrophils # Seg Neutrophils # Man Lymphocytes # (Manual) PT INR D-Dimer ABG pH POC ABG pO2 ABG Hemoglobin ABG Oxyhemoglobin ABG Sodium ABG Potassium ABG Chloride ABG Glucose Sodium Potassium Chloride Carbon Dioxide BUN Creatinine Glucose POC Glucose Lactic Acid Calcium Phosphorus Magnesium Ferritin AST ALT Ammonia Lactate Dehydrogenase Total Creatine Kinase CK-MB (CK-2) C-Reactive Protein Total Protein Albumin Vitamin B12 Arterial Blood Glucose Arterial Blood Ionized Calcium Urine WBC (Auto) Urine Creatinine Hepatitis C Antibody
--- NOTE | 2020-07-27 15:52 | Progress Note ---
<MARIELLA MURRELL - Last Filed: 07/27/20 15:48> Assessment and Plan Assessment and plan: -Antibiotic therapy -Trend CBC, CMP, Mg, Phos -Trend CK -Pulmonary hygiene -ABGs as needed -PICC for PPN -Neuro consult -MRI brain, CTH, EEG pending DVT/GI prophylaxis: Heparin subcu, SCDs to bilateral lower extremities while in bed, PPI Dispo: ICU/ LTACH pending CODE STATUS: Full code The high probability of a clinically significant, sudden or life threatening deterioration of the [multi] system(s) required my full and direct attention, intervention and personal management. The aggregate critical care time was [35] minutes. This time is in addition to time spent performing reported procedures but includes the following: [x] Data Review and interpretation [x] Patient assessment and monitoring of vital signs [x] Documentation [x] Medication orders and management History Interval history: This is a 65-year-old female with hepatitis C, migraines and hypertension who had presented to the emergency department on 07/21 with altered mental status after being found on the floor by family members. Upon evaluation in the emergency department patient was found to be hypothermic and hypotensive with leukocytosis and acute kidney failure consistent with sepsis. Patient also had elevated D- dimer, metabolic encephalopathy, lactic acidosis, hyperkalemia and rhabdomyolysis. Patient was admitted to the hospital service with sepsis, UTI, DOREEN, rhabdomyolysis, acute respiratory failure, metabolic acidosis, acute metabolic encephalopathy. Nephrology, infectious disease and critical care consulted. Sepsis Urinary tract infection with Klebsiella pneumonia Rhabdomyolysis Hyperchloremia Leukocytosis Acute respiratory failure Acute metabolic encephalopathy Hypertension Hepatitis C Moderate pulmonary hypertension Thrombocytopenia 07/21: Patient received a total of 4 L normal saline, was started on vasopressin and remains on BiPAP. Patient was on Levophed and D5 normal saline and a bicarbonate drip. D5 normal saline was discontinued. We will obtain a p.m. BMP and serial BMPs. Patient was contacted and the patient is now on AND/DNR. 07/22: Patient received a total of 12 L IV bolus and has been weaned off of Levophed and vasopressin. Patient's kidney function has improved drastically. Patient has been started on scheduled Haldol and we obtained a baseline ECG.she was started on maintenance fluid overnight which was stopped today. Echocardiogram shows moderate pulmonary hypertension. [facility] would like to obtain a CT chest when more stable. RT is titrating BiPAP FiO2 as tolerated and we will assess for nutrition once off BiPAP.Patient now has hypernatremia, hyperchloremia and her BUN/creatinine has decreased to 53/1.4. 07/23/2020; patient is still on BiPAP, agitated and confused. Kidney function improved. Patient was on Haldol and Geodon which did not help. Put the patient on Ativan as needed this morning. I have a long discussion with her yesterday and she does not want any heroic measures to be done. Does not want NG tube to be placed. Patient is DNR/DNI. Patient has UTI and on cefepime. Patient prognosis is guarded. Patient has hypernatremia and placed on D5 0.2% normal saline but no improvement. Hypokalemia, repleted according to electrolyte protocol. Patient prognosis is very poor. Patient is gasping for air. 07/24/2020; patient is on BiPAP, agitated and confused. Sodium is trending up and 163 this morning despite the patient is on D5 W at 125. Family declined NG tube. Patient's family states patient is not alcoholic. UDS is positive for opioid. Patient has delirium and supportive care. On alcohol withdrawal protocol. Patient has UTI and continue with cefepime. Urine culture noted. 07/25: This morning the time my examination patient is on BiPAP therapy and has NG tube to tube feedings. Patient has hypomagnesemic which was repleted and severely hypokalemic which was also repleted. Patient has hypernatremia and her leukocytosis has improved. Urine culture speciated to Klebsiella and antibiotic regimen has been modified per ID. 07/26: PICC placement for PPN and RT is weaning BiPAP. At the time of my exam she was on 12/12 at 85% FiO2. Patient was hypokalemic today which was repleted. Patient remains hypokalemic in the HIT panel is pending. We will obtain a neurology oracle consultant B12/folate. LTACH placement is pending per . Patient's mentation is better today and no acute events reported overnight. 07/27: Neurology would like to obtain an EEG and MRI brain without contrast and she completed antibiotic therapy today. Patient noted her increased diuresis which could be immobilizing her volume resuscitation, ATN diuresis or SIADH we will obtain a CT of her head with contrast. RT continues to wean BiPAP therapy. No acute events reported overnight. Patient is hypokalemic and hypomagnesemic today which was repleted. She remains on PPN. Hospitalist Physical - Constitutional Vitals: Temp Pulse Resp BP Pulse Ox 97.9 F 101 H 30 H 159/82 96 07/27/20 12:00 07/27/20 15:00 07/27/20 15:00 07/27/20 15:00 07/27/20 15:36 General appearance: Present: no acute distress - EENT Eyes: Present: PERRL - Neck Neck: Absent: masses or JVD - Respiratory Respiratory effort: normal Respiratory: bilateral: rhonchi - Cardiovascular Rhythm: regular Heart Sounds: Present: S1 & S2. Absent: systolic murmur, diastolic murmur - Extremities Extremities: no ischemia, pulses intact, pulses symmetrical, No edema, normal temperature, normal color, Full ROM Peripheral Pulses: within normal limits - Abdominal General gastrointestinal: soft, non-tender, non-distended - Integumentary Integumentary: Present: warm, dry - Psychiatric Psychiatric: agitated - Neurologic Neurologic: moves all extremities - Allied Health Allied health notes reviewed: nursing, RT, social work HEART Score - HEART Score Troponin: Troponin T 0.026 ng/mL (0.00-0.029) 07/20/20 19:27 Results - Labs CBC & Chem 7: 07/27/20 Unknown 07/27/20 04:00 Labs: Laboratory Last Values WBC 11.2 K/mm3 (4.5-11.0) H 07/27/20 Unknown RBC 3.02 M/mm3 (3.65-5.03) L 07/27/20 Unknown Hgb 10.1 gm/dl (10.1-14.3) 07/27/20 Unknown Hct 30.1 % (30.3-42.9) L 07/27/20 Unknown MCV 100 fl (79-97) H 07/27/20 Unknown MCH 33 pg (28-32) H 07/27/20 Unknown MCHC 33 % (30-34) 07/27/20 Unknown RDW 13.3 % (13.2-15.2) 07/27/20 Unknown Plt Count 77 K/mm3 (140-440) L 07/27/20 Unknown Lymph % (Auto) 9.5 % (13.4-35.0) L 07/25/20 05:15 Mchenry % (Auto) 2.0 % (0.0-7.3) 07/25/20 05:15 Eos % (Auto) 0.2 % (0.0-4.3) 07/25/20 05:15 Baso % (Auto) 0.1 % (0.0-1.8) 07/25/20 05:15 Lymph # (Auto) 1.1 K/mm3 (1.2-5.4) L 07/25/20 05:15 Mchenry # (Auto) 0.2 K/mm3 (0.0-0.8) 07/25/20 05:15 Eos # (Auto) 0.0 K/mm3 (0.0-0.4) 07/25/20 05:15 Baso # (Auto) 0.0 K/mm3 (0.0-0.1) 07/25/20 05:15 Add Manual Diff Complete 07/21/20 04:00 Total Counted 100 07/21/20 04:00 Seg Neutrophils % 88.2 % (40.0-70.0) H 07/25/20 05:15 Seg Neuts % (Manual) 62.0 % (40.0-70.0) 07/21/20 04:00 Band Neutrophils % 32.0 % 07/21/20 04:00 Lymphocytes % (Manual) 2.0 % (13.4-35.0) L 07/21/20 04:00 Monocytes % (Manual) 4.0 % (0.0-7.3) 07/21/20 04:00 Nucleated RBC % Not Reportable 07/21/20 04:00 Seg Neutrophils # 10.6 K/mm3 (1.8-7.7) H 07/25/20 05:15 Seg Neutrophils # Man 9.4 K/mm3 (1.8-7.7) H 07/21/20 04:00 Band Neutrophils # 4.8 K/mm3 07/21/20 04:00 Lymphocytes # (Manual) 0.3 K/mm3 (1.2-5.4) L 07/21/20 04:00 Abs React Lymphs (Man) 0.0 K/mm3 07/21/20 04:00 Monocytes # (Manual) 0.6 K/mm3 (0.0-0.8) 07/21/20 04:00 Eosinophils # (Manual) 0.0 K/mm3 (0.0-0.4) 07/21/20 04:00 Basophils # (Manual) 0.0 K/mm3 (0.0-0.1) 07/21/20 04:00 Metamyelocytes # 0.0 K/mm3 07/21/20 04:00 Myelocytes # 0.0 K/mm3 07/21/20 04:00 Promyelocytes # 0.0 K/mm3 07/21/20 04:00 Blast Cells # 0.0 K/mm3 07/21/20 04:00 WBC Morphology Not Reportable 07/21/20 04:00 Hypersegmented Neuts Not Reportable 07/21/20 04:00 Hyposegmented Neuts Not Reportable 07/21/20 04:00 Hypogranular Neuts Not Reportable 07/21/20 04:00 Smudge Cells Not Reportable 07/21/20 04:00 Toxic Granulation Not Reportable 07/21/20 04:00 Toxic Vacuolation Not Reportable 07/21/20 04:00 Dohle Bodies Not Reportable 07/21/20 04:00 Pelger-Huet Anomaly Not Reportable 07/21/20 04:00 Elia Rods Not Reportable 07/21/20 04:00 Platelet Estimate Consistent w auto 07/21/20 04:00 Clumped Platelets Not Reportable 07/21/20 04:00 Plt Clumps, EDTA Not Reportable 07/21/20 04:00 Large Platelets Not Reportable 07/21/20 04:00 Giant Platelets Not Reportable 07/21/20 04:00 Platelet Satelliting Not Reportable 07/21/20 04:00 Plt Morphology Comment Not Reportable 07/21/20 04:00 RBC Morphology Not Reportable 07/21/20 04:00 Dimorphic RBCs Not Reportable 07/21/20 04:00 Polychromasia Not Reportable 07/21/20 04:00 Hypochromasia Not Reportable 07/21/20 04:00 Poikilocytosis Not Reportable 07/21/20 04:00 Anisocytosis Not Reportable 07/21/20 04:00 Microcytosis Not Reportable 07/21/20 04:00 Macrocytosis Not Reportable 07/21/20 04:00 Spherocytes Not Reportable 07/21/20 04:00 Pappenheimer Bodies Not Reportable 07/21/20 04:00 Sickle Cells Not Reportable 07/21/20 04:00 Target Cells Not Reportable 07/21/20 04:00 Tear Drop Cells Not Reportable 07/21/20 04:00 Ovalocytes Not Reportable 07/21/20 04:00 Helmet Cells Not Reportable 07/21/20 04:00 Weathers-Leoti Bodies Not Reportable 07/21/20 04:00 [place] Rings Not Reportable 07/21/20 04:00 Lorri Cells 1+ 07/21/20 04:00 Bite Cells Not Reportable 07/21/20 04:00 Crenated Cell Not Reportable 07/21/20 04:00 Elliptocytes Not Reportable 07/21/20 04:00 Acanthocytes (Spur) Not Reportable 07/21/20 04:00 Rouleaux Not Reportable 07/21/20 04:00 Hemoglobin C Crystals Not Reportable 07/21/20 04:00 Schistocytes Not Reportable 07/21/20 04:00 Malaria parasites Not Reportable 07/21/20 04:00 Junior Bodies Not Reportable 07/21/20 04:00 Hem Pathologist Commnt No 07/21/20 04:00 PT 20.1 Sec. (12.2-14.9) H 07/20/20 19:32 INR 1.72 (0.87-1.13) H 07/20/20 19:32 APTT 33.7 Sec. (24.2-36.6) 07/20/20 19:32 D-Dimer 2098.49 ng/mlDDU (0-234) H 07/20/20 21:59 ABG pH 7.523 (7.320-7.450) H 07/24/20 19:33 POC ABG pCO2 41.7 mmHg (32.0-48.0) 07/24/20 19:33 POC ABG pO2 76.4 mmHg (83-108) L 07/24/20 19:33 POC ABG HCO3 33.5 07/24/20 19:33 ABG O2 Saturation 95.6 (0-100) 07/24/20 19:33 POC ABG Base Excess 9.8 07/24/20 19:33 ABG Hemoglobin 10.3 (12.0-17.5) L 07/24/20 19:33 ABG Oxyhemoglobin 94.5 (94-98) 07/24/20 19:33 ABG Methemoglobin 0.3 (0.0-1.5) 07/24/20 19:33 ABG Sodium 151.2 mmol/L (136.0-145.0) H 07/24/20 19:33 ABG Potassium 2.4 mmol/L (3.40-4.50) L 07/24/20 19:33 ABG Chloride 111.0 mmol/L (98-107) H 07/24/20 19:33 ABG Glucose 125 mg/dL (65-95) H 07/24/20 19:33 Carboxyhemoglobin 0.8 (0.5-1.5) 07/24/20 19:33 FiO2 % 90 07/24/20 19:33 Sodium 142 mmol/L (137-145) 07/27/20 04:00 Potassium 3.2 mmol/L (3.6-5.0) L 07/27/20 04:00 Chloride 99.3 mmol/L (98-107) 07/27/20 04:00 Carbon Dioxide 37 mmol/L (22-30) H 07/27/20 04:00 Anion Gap 9 mmol/L 07/27/20 04:00 BUN 11 mg/dL (7-17) 07/27/20 04:00 Creatinine 0.3 mg/dL (0.6-1.2) L 07/27/20 04:00 Estimated GFR > 60 ml/min 07/27/20 04:00 BUN/Creatinine Ratio 37 % 07/27/20 04:00 Glucose 120 mg/dL (65-100) H 07/27/20 04:00 POC Glucose 125 mg/dL (70-105) H 07/27/20 11:33 Lactic Acid 1.90 mmol/L (0.7-2.0) 07/20/20 21:59 Calcium 7.4 mg/dL (8.4-10.2) L 07/27/20 04:00 Phosphorus 2.70 mg/dL (2.5-4.5) 07/27/20 04:00 Magnesium 1.30 mg/dL (1.7-2.3) L 07/27/20 04:00 Ferritin 1648.0 ng/mL (10.0-200.0) H 07/20/20 21:59 Total Bilirubin 0.40 mg/dL (0.1-1.2) 07/26/20 04:00 Direct Bilirubin < 0.2 mg/dL (0-0.2) 07/23/20 17:33 Indirect Bilirubin 0.3 mg/dL 07/23/20 17:33 AST 74 units/L (5-40) H 07/26/20 04:00 ALT 79 units/L (7-56) H 07/26/20 04:00 Alkaline Phosphatase 101 units/L (35-129) 07/26/20 04:00 Ammonia 39.0 umol/L (25-60) 07/23/20 17:33 Lactate Dehydrogenase 732 units/L (91-180) H 07/20/20 21:59 Total Creatine Kinase 74760 units/L (30-135) H 07/21/20 08:20 CK-MB (CK-2) 289.0 ng/mL (0.0-4.0) H 07/20/20 19:27 CK-MB (CK-2) Rel Index 2.0 (0-4) 07/20/20 19:27 Troponin T 0.026 ng/mL (0.00-0.029) 07/20/20 19:27 C-Reactive Protein 37.90 mg/dL (0.00-1.30) H 07/20/20 21:59 Total Protein 5.0 g/dL (6.3-8.2) L 07/26/20 04:00 Albumin 2.5 g/dL (3.9-5) L 07/26/20 04:00 Albumin/Globulin Ratio 1.0 % 07/26/20 04:00 Triglycerides 109 mg/dL (2-149) 07/27/20 04:00 Vitamin B12 1235 pg/mL (211-911) H 07/26/20 14:50 Folate 16.07 ng/mL (7.3-26.0) 07/26/20 14:50 Procalcitonin 40.67 ng/mL (<0.15) 07/20/20 21:59 TSH 0.454 mlU/mL (0.270-4.200) 07/20/20 19:27 Free T4 0.87 ng/dL (0.76-1.46) 07/20/20 19:27 Arterial Blood Glucose 125 mg/dL (65-95) H 07/24/20 19:33 Arterial Blood Ionized Calcium 4.3 mg/dL (4.6-5.3) L 07/24/20 19:33 Urine Color Yellow (Yellow) 07/21/20 Unknown Urine Turbidity Cloudy (Clear) 07/21/20 Unknown Urine pH 5.0 (5.0-7.0) 07/21/20 Unknown Ur Specific [place] 1.013 (1.003-1.030) 07/21/20 Unknown Urine Protein 30 mg/dl mg/dL (Negative) 07/21/20 Unknown Urine Glucose (UA) Neg mg/dL (Negative) 07/21/20 Unknown Urine Ketones Neg mg/dL (Negative) 07/21/20 Unknown Urine Blood Lg (Negative) 07/21/20 Unknown Urine Nitrite Neg (Negative) 07/21/20 Unknown Urine Bilirubin Neg (Negative) 07/21/20 Unknown Urine Urobilinogen < 2.0 mg/dL (<2.0) 07/21/20 Unknown Ur Leukocyte Esterase Sm (Negative) 07/21/20 Unknown Urine WBC (Auto) 28.0 /HPF (0.0-6.0) H 07/21/20 Unknown Urine RBC (Auto) 89.0 /HPF (0.0-6.0) 07/21/20 Unknown U Epithel Cells (Auto) 1.0 /HPF (0-13.0) 07/21/20 Unknown Urine WBC Clumps 2+ /HPF 07/21/20 Unknown Hyaline Casts 9 /LPF 07/21/20 Unknown Urine Mucus Few /HPF 07/21/20 Unknown Urine Yeast (Budding) 3+ /HPF 07/20/20 19:52 Urine Eosinophils None seen (None Seen) 07/21/20 Unknown Urine Creatinine 40.4 mg/dL (0.1-20.0) H 07/26/20 07:14 Urine Sodium 10 mmol/L 07/21/20 Unknown Urine Potassium 32.12 mmol/L 07/26/20 07:14 Urine Chloride 119.0 mmolL (110-250) 07/26/20 07:14 Random Vancomycin 4.7 ug/mL (0-40.0) 07/22/20 06:27 Urine Opiates Screen Positive 07/20/20 19:52 Urine Methadone Screen Negative 07/20/20 19:52 Ur Barbiturates Screen Negative 07/20/20 19:52 Ur Phencyclidine Scrn Negative 07/20/20 19:52 Ur Amphetamines Screen Negative 07/20/20 19:52 U Benzodiazepines Scrn Positive 07/20/20 19:52 Urine Cocaine Screen Negative 07/20/20 19:52 U Marijuana (THC) Screen Negative 07/20/20 19:52 Drugs of Abuse Note Disclamer 07/20/20 19:52 Proteinase 3 (PR3) Ab <1.0 AI (<1.0) 07/21/20 09:56 Myeloperoxidase Ab <1.0 AI (<1.0) 07/21/20 09:56 Complement C3 106 mg/dL (83-193) 07/21/20 09:56 Complement C4 21 mg/dL (15-57) 07/21/20 09:56 Coronavirus (PCR) Negative (Negative) 07/21/20 08:20 Hepatitis A IgM Ab Non-reactive (NonReactive) 07/23/20 17:33 Hep Bs Antigen Non-reactive (Negative) 07/23/20 17:33 Hep B Core IgM Ab Non-reactive (NonReactive) 07/23/20 17:33 Hepatitis C Antibody Reactive (NonReactive) A 07/23/20 17:33 Blood Type O POSITIVE 07/20/20 23:15 Antibody Screen Negative 07/20/20 23:15 Russell/IV: Voiding Method Indwelling Catheter Active Medications - Current Medications Current Medications: Generic Name Dose Route Start Last Admin Trade Name Freq PRN Reason Stop Dose Admin Acetaminophen 650 mg 07/20/20 22:51 Acetaminophen 325 Mg/10.15 Ml Oral Liqd Unit Dose FEEDTUBE Q6H PRN Pain MILD(1-3)/Fever >100.5/HESS Albuterol/Ipratropium 1 ampul 07/20/20 23:00 07/27/20 14:20 Ipratropium/Albuterol Sulfate 3 Ml Ampul.Neb IH 1 ampul Q6HRT HONEY Administration Alprazolam 2 mg 07/24/20 22:00 07/27/20 13:53 Alprazolam 1 Mg Tab PO 2 mg Q8HR HONEY Administration Lipase/Protease/Amylase 1 each 07/24/20 18:26 Lipase 10,500/Protease 25,000/Amylase 43,750 (Units) Dr [place] FEEDTUBE PRN PRN For Clogged Feeding Tube Dextrose 50 ml 07/26/20 10:10 Dextrose 50% In Water (25gm) 50 Ml Syringe IV Q30MIN PRN Hypoglycemia Protocol Famotidine 20 mg 07/20/20 23:00 07/27/20 10:45 Famotidine 20 Mg/2 Ml Inj IV 20 mg QAM HONEY Administration Haloperidol Lactate 5 mg 07/22/20 12:00 07/27/20 12:27 Haloperidol Lactate 5 Mg/1 Ml Inj IV 5 mg Q6H HONEY Administration Haloperidol Lactate 5 mg 07/23/20 17:24 Haloperidol Lactate 5 Mg/1 Ml Inj IV Q1HR PRN Unrespon. to mult. doses BZD's Hydralazine HCl 10 mg 07/22/20 23:25 07/24/20 15:02 Hydralazine 20 Mg/1 Ml Inj IV 10 mg Q6H PRN Administration Hypertension Folic Acid 1 mg/ Sodium 50.2 mls @ 200.8 mls/hr 07/23/20 18:00 07/27/20 12:27 Chloride IV 200 mls/hr QDAY HONEY Administration Thiamine HCl 100 mg/ Sodium 51 mls @ 100 mls/hr 07/23/20 18:00 07/27/20 10:45 Chloride IV 100 mls/hr QDAY HONEY Administration Amino Acids 2,000 mls @ 75 mls/hr 07/26/20 20:00 07/26/20 21:05 Clinimix 4.25%-10% Solution IV 07/27/20 19:59 75 mls/hr ONCE HONEY Administration Amino Acids/Electrolytes/Dextrose 1,800 mls @ 75 mls/hr 07/27/20 20:00 Tpn Adult IV 07/28/20 19:59 DAILY@1999 [facility] Protocol Insulin Human Regular 0 units 07/26/20 12:00 07/27/20 13:18 Insulin Regular, Human 100 Units/1 Ml SUB-Q Not Given Q6HR [facility] Protocol Lorazepam 2 mg 07/23/20 17:24 07/26/20 19:36 Lorazepam 2 Mg/Ml Vial IV 2 mg Q1HR PRN Administration CIWA-Ar 8-15 Lorazepam 4 mg 07/23/20 17:24 07/25/20 09:15 Lorazepam 2 Mg/Ml Vial IV 4 mg Q1HR PRN Administration CIWA-Ar 16-25 Lorazepam 4 mg 07/23/20 17:24 Lorazepam 2 Mg/Ml Vial IV Q15MIN PRN CIWA-Ar >25 Metoclopramide HCl 5 mg 07/20/20 22:51 Metoclopramide 10 Mg/2 Ml Inj IV Q6H PRN Nausea And Vomiting Simple Syrup 15 ml 07/24/20 18:26 Simple Syrup 15 Ml FEEDTUBE PRN PRN Hypoglycemia Simple Syrup 30 ml 07/24/20 18:26 Simple Syrup 15 Ml FEEDTUBE PRN PRN Hypoglycemia Sodium Bicarbonate 325 mg 07/24/20 18:26 Sodium Bicarbonate 325 Mg Tab FEEDTUBE PRN PRN For Clogged Feeding Tube Sodium Chloride 10 ml 07/21/20 10:00 07/27/20 10:46 Sodium Chloride 0.9% 10 Ml Flush Syringe IV 10 ml BID HONEY Administration Sodium Chloride 10 ml 07/20/20 22:51 07/25/20 05:01 Sodium Chloride 0.9% 10 Ml Flush Syringe IV 10 ml PRN PRN Administration LINE FLUSH Nutrition/Malnutrition Assess - Dietary Evaluation Nutrition/Malnutrition Findings: Nutrition Notes Start: 07/22/20 12:24 Freq: Status: Active Protocol: Document 07/27/20 11:12 [facility] (Rec: 07/27/20 11:21 [facility] [id number]) Nutrition Notes Initial or Follow up Reassessment Current Diagnosis Acute Kidney Injury,Sepsis, Hypertension Other Pertinent Diagnosis Hep C, AMS, UTI, Encephalopathy, dehydration Current Diet CPN at 75ml/hr Labs/Tests K 3.2 CO2 - 37 Mg 1.3 Pertinent Medications Mag sulfate x 1 dose 20mEq KCl at 100ml/hr x 3 bags Height 5 ft 3 in Weight 53 kg [place] Body Weight (kg) 52.27 BMI 20.7 Weight Status Underweight Subjective/Other Information Day 1 CPN. Percent of energy/protein needs met: 74% energy 100% pro Burn Absent Trauma Absent #1 Nutrition Diagnosis Inadequate oral intake Diagnosis Progress(for reassessment Continues documentation) Is patient on ventilator? No Is Patient Ambulatory and/or Out of Bed No REE-([place]-confined to bed) 1258.560 Kcal/Kg value to use for calculation 30 Approximate Energy Requirements Using 1590 kcal/Kg Calculation Used for Recommendations Kcal/kg Additional Notes Pro needs 1.2-2g/k-106g/ day Fluid needs 1ml/kcal Nutrition Intervention Nutrition Support: Continue CPN at 75ml/hr: MVI, 80mEq K, 60mEq Na, 16mEq Mg, 2mEq Ca, 20mmol Phos, 100% chloride/0% acetate. Osmolality: 1028. (Pt already receiving thiamine ) Kcal 929 Protein (gm) 75 Carbohydrates (gm) 185 Fat (gm) 0 Fluid (mL) 1,800 Fiber (gm) 0 Goal #1 CPN to meet at nutrient needs as best possible Follow-Up By: 07/28/20 Additional Comments Labs in am: BMP, Mg, Phos <CONCHITA STEELE - Last Filed: 07/27/20 18:24> Assessment and Plan Assessment and plan: I saw and evaluated the patient. I agree with the findings and the plan of care as documented in the Nurse Practitioner's~note, with the following corrections and additions. Hospitalist Physical - Constitutional Vitals: Temp Pulse Resp BP Pulse Ox 97.9 F 105 H 36 H 140/83 96 07/27/20 12:00 07/27/20 18:00 07/27/20 18:00 07/27/20 18:00 07/27/20 18:00 HEART Score - HEART Score Troponin: Troponin T 0.026 ng/mL (0.00-0.029) 07/20/20 19:27 Results - Labs CBC & Chem 7: 07/27/20 Unknown 07/27/20 04:00 Labs: Laboratory Last Values WBC 11.2 K/mm3 (4.5-11.0) H 07/27/20 Unknown RBC 3.02 M/mm3 (3.65-5.03) L 07/27/20 Unknown Hgb 10.1 gm/dl (10.1-14.3) 07/27/20 Unknown Hct 30.1 % (30.3-42.9) L 07/27/20 Unknown MCV 100 fl (79-97) H 07/27/20 Unknown MCH 33 pg (28-32) H 07/27/20 Unknown MCHC 33 % (30-34) 07/27/20 Unknown RDW 13.3 % (13.2-15.2) 07/27/20 Unknown Plt Count 77 K/mm3 (140-440) L 07/27/20 Unknown Lymph % (Auto) 9.5 % (13.4-35.0) L 07/25/20 05:15 Mchenry % (Auto) 2.0 % (0.0-7.3) 07/25/20 05:15 Eos % (Auto) 0.2 % (0.0-4.3) 07/25/20 05:15 Baso % (Auto) 0.1 % (0.0-1.8) 07/25/20 05:15 Lymph # (Auto) 1.1 K/mm3 (1.2-5.4) L 07/25/20 05:15 Mchenry # (Auto) 0.2 K/mm3 (0.0-0.8) 07/25/20 05:15 Eos # (Auto) 0.0 K/mm3 (0.0-0.4) 07/25/20 05:15 Baso # (Auto) 0.0 K/mm3 (0.0-0.1) 07/25/20 05:15 Add Manual Diff Complete 07/21/20 04:00 Total Counted 100 07/21/20 04:00 Seg Neutrophils % 88.2 % (40.0-70.0) H 07/25/20 05:15 Seg Neuts % (Manual) 62.0 % (40.0-70.0) 07/21/20 04:00 Band Neutrophils % 32.0 % 07/21/20 04:00 Lymphocytes % (Manual) 2.0 % (13.4-35.0) L 07/21/20 04:00 Monocytes % (Manual) 4.0 % (0.0-7.3) 07/21/20 04:00 Nucleated RBC % Not Reportable 07/21/20 04:00 Seg Neutrophils # 10.6 K/mm3 (1.8-7.7) H 07/25/20 05:15 Seg Neutrophils # Man 9.4 K/mm3 (1.8-7.7) H 07/21/20 04:00 Band Neutrophils # 4.8 K/mm3 07/21/20 04:00 Lymphocytes # (Manual) 0.3 K/mm3 (1.2-5.4) L 07/21/20 04:00 Abs React Lymphs (Man) 0.0 K/mm3 07/21/20 04:00 Monocytes # (Manual) 0.6 K/mm3 (0.0-0.8) 07/21/20 04:00 Eosinophils # (Manual) 0.0 K/mm3 (0.0-0.4) 07/21/20 04:00 Basophils # (Manual) 0.0 K/mm3 (0.0-0.1) 07/21/20 04:00 Metamyelocytes # 0.0 K/mm3 07/21/20 04:00 Myelocytes # 0.0 K/mm3 07/21/20 04:00 Promyelocytes # 0.0 K/mm3 07/21/20 04:00 Blast Cells # 0.0 K/mm3 07/21/20 04:00 WBC Morphology Not Reportable 07/21/20 04:00 Hypersegmented Neuts Not Reportable 07/21/20 04:00 Hyposegmented Neuts Not Reportable 07/21/20 04:00 Hypogranular Neuts Not Reportable 07/21/20 04:00 Smudge Cells Not Reportable 07/21/20 04:00 Toxic Granulation Not Reportable 07/21/20 04:00 Toxic Vacuolation Not Reportable 07/21/20 04:00 Dohle Bodies Not Reportable 07/21/20 04:00 Pelger-Huet Anomaly Not Reportable 07/21/20 04:00 Elia Rods Not Reportable 07/21/20 04:00 Platelet Estimate Consistent w auto 07/21/20 04:00 Clumped Platelets Not Reportable 07/21/20 04:00 Plt Clumps, EDTA Not Reportable 07/21/20 04:00 Large Platelets Not Reportable 07/21/20 04:00 Giant Platelets Not Reportable 07/21/20 04:00 Platelet Satelliting Not Reportable 07/21/20 04:00 Plt Morphology Comment Not Reportable 07/21/20 04:00 RBC Morphology Not Reportable 07/21/20 04:00 Dimorphic RBCs Not Reportable 07/21/20 04:00 Polychromasia Not Reportable 07/21/20 04:00 Hypochromasia Not Reportable 07/21/20 04:00 Poikilocytosis Not Reportable 07/21/20 04:00 Anisocytosis Not Reportable 07/21/20 04:00 Microcytosis Not Reportable 07/21/20 04:00 Macrocytosis Not Reportable 07/21/20 04:00 Spherocytes Not Reportable 07/21/20 04:00 Pappenheimer Bodies Not Reportable 07/21/20 04:00 Sickle Cells Not Reportable 07/21/20 04:00 Target Cells Not Reportable 07/21/20 04:00 Tear Drop Cells Not Reportable 07/21/20 04:00 Ovalocytes Not Reportable 07/21/20 04:00 Helmet Cells Not Reportable 07/21/20 04:00 Weathers-Leoti Bodies Not Reportable 07/21/20 04:00 [place] Rings Not Reportable 07/21/20 04:00 Lorri Cells 1+ 07/21/20 04:00 Bite Cells Not Reportable 07/21/20 04:00 Crenated Cell Not Reportable 07/21/20 04:00 Elliptocytes Not Reportable 07/21/20 04:00 Acanthocytes (Spur) Not Reportable 07/21/20 04:00 Rouleaux Not Reportable 07/21/20 04:00 Hemoglobin C Crystals Not Reportable 07/21/20 04:00 Schistocytes Not Reportable 07/21/20 04:00 Malaria parasites Not Reportable 07/21/20 04:00 Junior Bodies Not Reportable 07/21/20 04:00 Hem Pathologist Commnt No 07/21/20 04:00 PT 20.1 Sec. (12.2-14.9) H 07/20/20 19:32 INR 1.72 (0.87-1.13) H 07/20/20 19:32 APTT 33.7 Sec. (24.2-36.6) 07/20/20 19:32 D-Dimer 2098.49 ng/mlDDU (0-234) H 07/20/20 21:59 ABG pH 7.523 (7.320-7.450) H 07/24/20 19:33 POC ABG pCO2 41.7 mmHg (32.0-48.0) 07/24/20 19:33 POC ABG pO2 76.4 mmHg (83-108) L 07/24/20 19:33 POC ABG HCO3 33.5 07/24/20 19:33 ABG O2 Saturation 95.6 (0-100) 07/24/20 19:33 POC ABG Base Excess 9.8 07/24/20 19:33 ABG Hemoglobin 10.3 (12.0-17.5) L 07/24/20 19:33 ABG Oxyhemoglobin 94.5 (94-98) 07/24/20 19:33 ABG Methemoglobin 0.3 (0.0-1.5) 07/24/20 19: ABG Sodium 151.2 mmol/L (136.0-145.0) H 07/24/20 19:33 ABG Potassium 2.4 mmol/L (3.40-4.50) L 07/24/20 19:33 ABG Chloride 111.0 mmol/L (98-107) H 07/24/20 19:33 ABG Glucose 125 mg/dL (65-95) H 07/24/20 19:33 Carboxyhemoglobin 0.8 (0.5-1.5) 07/24/20 19:33 FiO2 % 90 07/24/20 19:33 Sodium 142 mmol/L (137-145) 07/27/20 04:00 Potassium 3.2 mmol/L (3.6-5.0) L 07/27/20 04:00 Chloride 99.3 mmol/L (98-107) 07/27/20 04:00 Carbon Dioxide 37 mmol/L (22-30) H 07/27/20 04:00 Anion Gap 9 mmol/L 07/27/20 04:00 BUN 11 mg/dL (7-17) 07/27/20 04:00 Creatinine 0.3 mg/dL (0.6-1.2) L 07/27/20 04:00 Estimated GFR > 60 ml/min 07/27/20 04:00 BUN/Creatinine Ratio 37 % 07/27/20 04:00 Glucose 120 mg/dL (65-100) H 07/27/20 04:00 POC Glucose 121 mg/dL (70-105) H 07/27/20 16:11 Lactic Acid 1.90 mmol/L (0.7-2.0) 07/20/20 21:59 Calcium 7.4 mg/dL (8.4-10.2) L 07/27/20 04:00 Phosphorus 2.70 mg/dL (2.5-4.5) 07/27/20 04:00 Magnesium 1.30 mg/dL (1.7-2.3) L 07/27/20 04:00 Ferritin 1648.0 ng/mL (10.0-200.0) H 07/20/20 21:59 Total Bilirubin 0.40 mg/dL (0.1-1.2) 07/26/20 04:00 Direct Bilirubin < 0.2 mg/dL (0-0.2) 07/23/20 17:33 Indirect Bilirubin 0.3 mg/dL 07/23/20 17:33 AST 74 units/L (5-40) H 07/26/20 04:00 ALT 79 units/L (7-56) H 07/26/20 04:00 Alkaline Phosphatase 101 units/L (35-129) 07/26/20 04:00 Ammonia 39.0 umol/L (25-60) 07/23/20 17:33 Lactate Dehydrogenase 732 units/L (91-180) H 07/20/20 21:59 Total Creatine Kinase 66125 units/L (30-135) H 07/21/20 08:20 CK-MB (CK-2) 289.0 ng/mL (0.0-4.0) H 07/20/20 19:27 CK-MB (CK-2) Rel Index 2.0 (0-4) 07/20/20 19:27 Troponin T 0.026 ng/mL (0.00-0.029) 07/20/20 19:27 C-Reactive Protein 37.90 mg/dL (0.00-1.30) H 07/20/20 21:59 Total Protein 5.0 g/dL (6.3-8.2) L 07/26/20 04:00 Albumin 2.5 g/dL (3.9-5) L 07/26/20 04:00 Albumin/Globulin Ratio 1.0 % 07/26/20 04:00 Triglycerides 109 mg/dL (2-149) 07/27/20 04:00 Vitamin B12 1235 pg/mL (211-911) H 07/26/20 14:50 Folate 16.07 ng/mL (7.3-26.0) 07/26/20 14:50 Procalcitonin 40.67 ng/mL (<0.15) 07/20/20 21:59 TSH 0.454 mlU/mL (0.270-4.200) 07/20/20 19:27 Free T4 0.87 ng/dL (0.76-1.46) 07/20/20 19:27 Arterial Blood Glucose 125 mg/dL (65-95) H 07/24/20 19:33 Arterial Blood Ionized Calcium 4.3 mg/dL (4.6-5.3) L 07/24/20 19:33 Urine Color Yellow (Yellow) 07/21/20 Unknown Urine Turbidity Cloudy (Clear) 07/21/20 Unknown Urine pH 5.0 (5.0-7.0) 07/21/20 Unknown Ur Specific [place] 1.013 (1.003-1.030) 07/21/20 Unknown Urine Protein 30 mg/dl mg/dL (Negative) 07/21/20 Unknown Urine Glucose (UA) Neg mg/dL (Negative) 07/21/20 Unknown Urine Ketones Neg mg/dL (Negative) 07/21/20 Unknown Urine Blood Lg (Negative) 07/21/20 Unknown Urine Nitrite Neg (Negative) 07/21/20 Unknown Urine Bilirubin Neg (Negative) 07/21/20 Unknown Urine Urobilinogen < 2.0 mg/dL (<2.0) 07/21/20 Unknown Ur Leukocyte Esterase Sm (Negative) 07/21/20 Unknown Urine WBC (Auto) 28.0 /HPF (0.0-6.0) H 07/21/20 Unknown Urine RBC (Auto) 89.0 /HPF (0.0-6.0) 07/21/20 Unknown U Epithel Cells (Auto) 1.0 /HPF (0-13.0) 07/21/20 Unknown Urine WBC Clumps 2+ /HPF 07/21/20 Unknown Hyaline Casts 9 /LPF 07/21/20 Unknown Urine Mucus Few /HPF 07/21/20 Unknown Urine Yeast (Budding) 3+ /HPF 07/20/20 19:52 Urine Eosinophils None seen (None Seen) 07/21/20 Unknown Urine Creatinine 40.4 mg/dL (0.1-20.0) H 07/26/20 07:14 Urine Sodium 10 mmol/L 07/21/20 Unknown Urine Potassium 32.12 mmol/L 07/26/20 07:14 Urine Chloride 119.0 mmolL (110-250) 07/26/20 07:14 Random Vancomycin 4.7 ug/mL (0-40.0) 07/22/20 06:27 Urine Opiates Screen Positive 07/20/20 19:52 Urine Methadone Screen Negative 07/20/20 19:52 Ur Barbiturates Screen Negative 07/20/20 19:52 Ur Phencyclidine Scrn Negative 07/20/20 19:52 Ur Amphetamines Screen Negative 07/20/20 19:52 U Benzodiazepines Scrn Positive 07/20/20 19:52 Urine Cocaine Screen Negative 07/20/20 19:52 U Marijuana (THC) Screen Negative 07/20/20 19:52 Drugs of Abuse Note Disclamer 07/20/20 19:52 Proteinase 3 (PR3) Ab <1.0 AI (<1.0) 07/21/20 09:56 Myeloperoxidase Ab <1.0 AI (<1.0) 07/21/20 09:56 Complement C3 106 mg/dL (83-193) 07/21/20 09:56 Complement C4 21 mg/dL (15-57) 07/21/20 09:56 Coronavirus (PCR) Negative (Negative) 07/21/20 08:20 Hepatitis A IgM Ab Non-reactive (NonReactive) 07/23/20 17:33 Hep Bs Antigen Non-reactive (Negative) 07/23/20 17:33 Hep B Core IgM Ab Non-reactive (NonReactive) 07/23/20 17:33 Hepatitis C Antibody Reactive (NonReactive) A 07/23/20 17:33 Blood Type O POSITIVE 07/20/20 23:15 Antibody Screen Negative 07/20/20 23:15 Russell/IV: Voiding Method Indwelling Catheter Active Medications - Current Medications Current Medications: Generic Name Dose Route Start Last Admin Trade Name Freq PRN Reason Stop Dose Admin Acetaminophen 650 mg 07/20/20 22:51 Acetaminophen 325 Mg/10.15 Ml Oral Liqd Unit Dose FEEDTUBE Q6H PRN Pain MILD(1-3)/Fever >100.5/HESS Albuterol/Ipratropium 1 ampul 07/20/20 23:00 07/27/20 14:20 Ipratropium/Albuterol Sulfate 3 Ml Ampul.Neb IH 1 ampul Q6HRT HONEY Administration Alprazolam 2 mg 07/24/20 22:00 07/27/20 13:53 Alprazolam 1 Mg Tab PO 2 mg Q8HR HONEY Administration Lipase/Protease/Amylase 1 each 07/24/20 18:26 Lipase 10,500/Protease 25,000/Amylase 43,750 (Units) Dr [place] FEEDTUBE PRN PRN For Clogged Feeding Tube Dextrose 50 ml 07/26/20 10:10 Dextrose 50% In Water (25gm) 50 Ml Syringe IV Q30MIN PRN Hypoglycemia Protocol Famotidine 20 mg 07/20/20 23:00 07/27/20 10:45 Famotidine 20 Mg/2 Ml Inj IV 20 mg QAM HONEY Administration Haloperidol Lactate 5 mg 07/22/20 12:00 07/27/20 17:51 Haloperidol Lactate 5 Mg/1 Ml Inj IV 5 mg Q6H HONEY Administration Haloperidol Lactate 5 mg 07/23/20 17:24 Haloperidol Lactate 5 Mg/1 Ml Inj IV Q1HR PRN Unrespon. to mult. doses BZD's Hydralazine HCl 10 mg 07/22/20 23:25 07/24/20 15:02 Hydralazine 20 Mg/1 Ml Inj IV 10 mg Q6H PRN Administration Hypertension Folic Acid 1 mg/ Sodium 50.2 mls @ 200.8 mls/hr 07/23/20 18:00 07/27/20 12:27 Chloride IV 200 mls/hr QDAY HONEY Administration Thiamine HCl 100 mg/ Sodium 51 mls @ 100 mls/hr 07/23/20 18:00 07/27/20 10:45 Chloride IV 100 mls/hr QDAY HONEY Administration Amino Acids 2,000 mls @ 75 mls/hr 07/26/20 20:00 07/26/20 21:05 Clinimix 4.25%-10% Solution IV 07/27/20 19:59 75 mls/hr ONCE HONEY Administration Amino Acids/Electrolytes/Dextrose 1,800 mls @ 75 mls/hr 07/27/20 20:00 Tpn Adult IV 07/28/20 19:59 DAILY@1999 [facility] Protocol Insulin Human Regular 0 units 07/26/20 12:00 07/27/20 17:35 Insulin Regular, Human 100 Units/1 Ml SUB-Q Not Given Q6HR [facility] Protocol Lorazepam 2 mg 07/23/20 17:24 07/26/20 19:36 Lorazepam 2 Mg/Ml Vial IV 2 mg Q1HR PRN Administration CIWA-Ar 8-15 Lorazepam 4 mg 07/23/20 17:24 07/25/20 09:15 Lorazepam 2 Mg/Ml Vial IV 4 mg Q1HR PRN Administration CIWA-Ar 16-25 Lorazepam 4 mg 07/23/20 17:24 Lorazepam 2 Mg/Ml Vial IV Q15MIN PRN CIWA-Ar >25 Metoclopramide HCl 5 mg 07/20/20 22:51 Metoclopramide 10 Mg/2 Ml Inj IV Q6H PRN Nausea And Vomiting Simple Syrup 15 ml 07/24/20 18:26 Simple Syrup 15 Ml FEEDTUBE PRN PRN Hypoglycemia Simple Syrup 30 ml 07/24/20 18:26 Simple Syrup 15 Ml FEEDTUBE PRN PRN Hypoglycemia Sodium Bicarbonate 325 mg 07/24/20 18:26 Sodium Bicarbonate 325 Mg Tab FEEDTUBE PRN PRN For Clogged Feeding Tube Sodium Chloride 10 ml 07/21/20 10:00 07/27/20 10:46 Sodium Chloride 0.9% 10 Ml Flush Syringe IV 10 ml BID HONEY Administration Sodium Chloride 10 ml 07/20/20 22:51 07/25/20 05:01 Sodium Chloride 0.9% 10 Ml Flush Syringe IV 10 ml PRN PRN Administration LINE FLUSH Nutrition/Malnutrition Assess - Dietary Evaluation Nutrition/Malnutrition Findings: Nutrition Notes Start: 07/22/20 12:24 Freq: Status: Active Protocol: Document 07/27/20 11:12 AGUSTÍN (Rec: 07/27/20 11:21 [facility] [id number]) Nutrition Notes Initial or Follow up Reassessment Current Diagnosis Acute Kidney Injury,Sepsis, Hypertension Other Pertinent Diagnosis Hep C, AMS, UTI, Encephalopathy, dehydration Current Diet CPN at 75ml/hr Labs/Tests K 3.2 CO2 - 37 Mg 1.3 Pertinent Medications Mag sulfate x 1 dose 20mEq KCl at 100ml/hr x 3 bags Height 5 ft 3 in Weight 53 kg [place] Body Weight (kg) 52.27 BMI 20.7 Weight Status Underweight Subjective/Other Information Day 1 CPN. Percent of energy/protein needs met: 74% energy 100% pro Burn Absent Trauma Absent #1 Nutrition Diagnosis Inadequate oral intake Diagnosis Progress(for reassessment Continues documentation) Is patient on ventilator? No Is Patient Ambulatory and/or Out of Bed No REE-([facility]-confined to bed) 1258.560 Kcal/Kg value to use for calculation 30 Approximate Energy Requirements Using 1590 kcal/Kg Calculation Used for Recommendations Kcal/kg Additional Notes Pro needs 1.2-2g/k-106g/ day Fluid needs 1ml/kcal Nutrition Intervention Nutrition Support: Continue CPN at 75ml/hr: MVI, 80mEq K, 60mEq Na, 16mEq Mg, 2mEq Ca, 20mmol Phos, 100% chloride/0% acetate. Osmolality: 1028. (Pt already receiving thiamine ) Kcal 929 Protein (gm) 75 Carbohydrates (gm) 185 Fat (gm) 0 Fluid (mL) 1,800 Fiber (gm) 0 Goal #1 CPN to meet at nutrient needs as best possible Follow-Up By: 07/28/20 Additional Comments Labs in am: BMP, Mg, Phos
[2020-07-27] MEDS ORDERED: TOTAL PARENTERAL NUTRITION 1,800 ML IV SCH (20:00)
[2020-07-27] MEDS: hydrALAZINE 20 MG/1 ML INJ IV PRN (23:08)
[2020-07-28] MEDS ORDERED: SODIUM CHLORIDE 0.9% 1000 ML 1,000 ML ONE (00:59)
--- NOTE | 2020-07-28 01:13 | Event Note ---
Date: 07/28/20 SMOOTH PAGAN called on 65-year-old white female who has been on admission in the intensive care unit for sepsis, urinary tract infection and acute metabolic encephalopathy. Resuscitative measures were commenced according to ACLS protocol. Patient was successfully intubated and she had 3 rounds of epinephrine and 1 amp of sodium bicarbonate with return of spontaneous circulation. Will check ABG and also get a stat chest x-ray. Attempts were made to contact her spouse Mr. Luis Diaz to update him of patient's condition but there was no response.
--- NOTE | 2020-07-28 01:27 | XRay Report ---
CHEST 1 VIEW INDICATION: ETT placement COMPARISON: 07/20/2020 FINDINGS: Support devices: Endotracheal tube appears to be just above the elida. Nasogastric tube passes into the stomach. Left PICC line in the SVC, tip just above the atriocaval junction. Heart: Normal and unchanged Lungs/Pleura: Diffuse bilateral interstitial disease, unchanged. IMPRESSION: 1. Support devices as above. 2. Persistent interstitial lung disease. Signer Name: Ky Giraldo MD Signed: 07/28/2020 1:23 AM Workstation Name: [id number]
[2020-07-28] MEDS: HALOPERIDOL LACTATE 5 MG/1 ML INJ IV SCH ×2 (01:34→05:23)
[2020-07-28] MEDS: INSULIN REGULAR, HUMAN 100 UNITS/1 ML SUB-Q SCH ×4 (01:34→18:44)
[2020-07-28] MEDS: NORepinephrine/NS 4 MG-250 ML 4 MG/250 ML BAG IV SCH (01:42)
[2020-07-28 02:06] LABS: Hematocrit 28.2 % (30.3-42.9); Hemoglobin 9.2 gm/dl (10.1-14.3); Mean Corpuscular HGB Conc 33 % (30-34); Mean Corpuscular Volume 101 fl (79-97); Platelet Count 102 K/mm3 (140-440); Red Blood Count 2.79 M/mm3 (3.65-5.03); Red Cell Distribution Width 13.5 % (13.2-15.2)
[2020-07-28] MEDS: IPRATROPIUM/ALBUTEROL SULFATE 3 ML AMPUL.NEB IH SCH ×4 (02:07→19:52)
[2020-07-28 02:19] LABS: Alanine Aminotransferase 36 units/L (7-56); Albumin 2.2 g/dL (3.9-5); BUN/Creatinine Ratio 24; Blood Urea Nitrogen 22 mg/dL (7-17); Calcium 6.9 mg/dL (8.4-10.2); Hemolysis Index 5
[2020-07-28] MEDS ORDERED: EPINEPHrine 1 MG/10 ML SYRINGE ONE (04:34)
[2020-07-28] MEDS ORDERED: SODIUM BICARB 8.4% 50 MEQ/50 ML SYRINGE IV ONE (04:34)
[2020-07-28] MEDS ORDERED: ATROPINE 0.1% (1 MG/10 ML) CARDIAC SYRINGE ONE (04:34)
[2020-07-28 04:49] LABS: Total Cells Counted 100
[2020-07-28 04:50] LABS: Anisocytosis Few; Platelet Estimate Consistent w Auto
[2020-07-28] MEDS: LORazepam 2 MG/ML VIAL IV PRN (05:22)
[2020-07-28] MEDS: ALPRAZolam 1 MG TAB PO SCH ×3 (05:23→22:11)
[2020-07-28] MEDS ORDERED: LIP THERAPY VASELINE TP PRN (05:43)
[2020-07-28] MEDS ORDERED: MINERAL OIL/PETROLATUM, WHITE OPHTH OINT 3.5 GM OU PRN (05:43)
[2020-07-28] MEDS ORDERED: fentaNYL 100 MCG/2 ML INJ IV PRN (05:43)
[2020-07-28] MEDS: fentaNYL DRIP Premix 2,000 MCG/100 ML BAG IV SCH (06:26)
--- NOTE | 2020-07-28 09:30 | Progress Note ---
Assessment and Plan 65 y/o female with altered mental state, hypotension, renal failure and electrolyte imbalance with UTI seen on urine analysis and presumptive sepsis with distributive shock. 07/29/20: Called on speaker with nurse and SALES SUPPORT REP present listening. Patient confirms that he wants to come up and sign the "papers" to withdraw care. He and one other person are going to come up. I have asked the SALES SUPPORT REP to alert the attending physician to come sign and be present when family comes if I am not here. Was planning on switching to tube feeds after this back of TPN is finished, however will transition to comfort measures only. These are the wi shes of the family. 07/28/20: Continue to monitor urine output, may need to increase fluid resuscita tion to match output, especially if blood pressure drops. Will get MRI of head and pass on CT's given Iodine allergy. Prognosis remains guarded. Will consider bronch on Saturday to make sure the plugs are all gone. 07/27/20: could be post ATN diuresis vs SIADH. Will monitor volume closely. May need to obtain CT of head with contrast to make sure no new abnormalities are present. Will get family to assess with screening form for MRI. EEG should be ordered. Continue bipap but have no objection to trying Vaportherm later today if tolerates, continue bipap at night and PRN. Tolerating PPN. If able to wean off bipap can use NG tube for feeds until mental status improves, if it does. Guarded prognosis. 07/26/20: Picc placement going on now. Will start PPN after that and then stop D5 drip. If able to wean off bipap can start Tube feeds tomorrow once bag of PPN finished. LTACH referral in place. Suggest neurology consult as well. Will check B12 and folate levels. Guarded prognosis. Would like to obtain CT of chest when able to be more compliant and more stable in scanner. 07/24/20: Will attempt to wean bipap therapy for sats >88%. Slowed rate of D5 down to not correct Na to fast. Suggest starting patient on PPN until bipap can be weaned off. She is very high risk for aspiration with NG tube feeds and continuous bipap therapy. More calm with PRN ativan therapy so will continue. BP elevated but no fever, still could be withdrawing from ETOH. Discussed on rounds and will see if patient is an LTACH candidate. 07/23/20: Will transfer to floor given her AND status. Family is still making decisions. Discussed with IM and they agree. WIll see PRN on the floor. Very poor prognosis. 07/22/20: Stop maintenance. Continue current abx therapy. Will start scheduled haldol therapy to see if this will hep mental sate. Suggest continuation of bicarb drip and will give a couple of amps of bicarb today. Follow up renal recs. Patient has moderate pulmonary hypertension seen on echo. Will obtain lung history once more awake or from . Could be related to underlying lung disease. CXR maybe more consistent with ILD than pulmonary edema. Will obtain CT of chest when more stable. Remove central line today and obtain peripheral access. Maybe stable enough for step down, will discuss on rounds. Can stop q6 hour BMP's. ONce off bipap can assess nutrition. 1. Needs more fluid resuscitation. Ordered for 2 more liters of saline now and additional to be bolused after rounds today 2. Agree with broad spec abx therapy follow up on cultures of urine and blood 3. Currently on bipap but hopeful we can wean as tolerated given improvement in mental status. 4. Spoke with renal and they agree with more volume and chemical management of hyperkalemia 5. Given CXR appearance and no other imaging, will obtain 2D echo as well. her hypotension could be from sepsis but need to make sure cardiac function is ok. She may need inotropic help with pressor requirement does not improve. 6. Continue to assess volume throughout the day 7. CMP q6 hours to monitor sodium and other electrolytes 8. ordered picc but likely will not happen today. continue right femoral groin line. 9. Hold on feeds given her pressor requirement and bipap requirement 10. DVT and GI prophylaxis. Guarded prognosis. CCT 31 minutes. Subjective Date of service: 07/28/20 Interval history: No acute events. Stable vent settings. Objective Vital Signs - 12hr 07/27/20 07/27/20 07/27/20 21:42 22:00 22:06 Temperature Pulse Rate 86 100 H 102 H Pulse Rate [ Bilateral Throughout] Pulse Rate [ From Monitor] Respiratory 35 H 47 H 33 H Rate Respiratory Rate [Bilateral Throughout] Blood Pressure 177/97 175/90 175/90 O2 Sat by Pulse 96 92 91 Oximetry 0307/27/20 07/27/20 22:10 22:20 22:30 Temperature Pulse Rate 99 H 106 H 110 H Pulse Rate [ Bilateral Throughout] Pulse Rate [ From Monitor] Respiratory 24 28 H 28 H Rate Respiratory Rate [Bilateral Throughout] Blood Pressure 175/90 175/90 175/90 O2 Sat by Pulse 92 96 97 Oximetry 07/27/20 07/27/20 07/27/20 22:40 22:50 23:00 Temperature Pulse Rate 93 H 95 H 99 H Pulse Rate [ Bilateral Throughout] Pulse Rate [ From Monitor] Respiratory 28 H 27 H 26 H Rate Respiratory Rate [Bilateral Throughout] Blood Pressure 220/159 220/159 220/159 O2 Sat by Pulse 93 92 92 Oximetry 07/27/20 07/27/20 07/27/20 23:08 23:10 23:20 Temperature Pulse Rate 81 93 H Pulse Rate [ Bilateral Throughout] Pulse Rate [ From Monitor] Respiratory 27 H 27 H Rate Respiratory Rate [Bilateral Throughout] Blood Pressure 241/132 241/130 241/130 O2 Sat by Pulse 91 92 Oximetry 07/27/20 07/27/20 07/27/20 23:30 23:40 23:50 Temperature Pulse Rate 100 H 91 H 90 Pulse Rate [ Bilateral Throughout] Pulse Rate [ From Monitor] Respiratory 28 H 29 H 29 H Rate Respiratory Rate [Bilateral Throughout] Blood Pressure 241/130 258/139 258/139 O2 Sat by Pulse 92 92 92 Oximetry 07/28/20 07/28/20 07/28/20 00:00 00:10 00:20 Temperature 98.7 F Pulse Rate 86 90 83 Pulse Rate [ Bilateral Throughout] Pulse Rate [ 86 From Monitor] Respiratory 26 H 28 H 25 H Rate Respiratory Rate [Bilateral Throughout] Blood Pressure 258/139 154/52 154/52 O2 Sat by Pulse 91 91 83 L Oximetry 07/28/20 07/28/20 07/28/20 00:30 00:40 00:50 Temperature Pulse Rate 135 H 172 H 151 H Pulse Rate [ Bilateral Throughout] Pulse Rate [ From Monitor] Respiratory 14 35 H 41 H Rate Respiratory Rate [Bilateral Throughout] Blood Pressure 154/52 152/80 88/45 O2 Sat by Pulse 47 L 86 99 Oximetry 07/28/20 07/28/20 07/28/20 00:54 01:00 01:10 Temperature Pulse Rate 137 H 131 H 121 H Pulse Rate [ Bilateral Throughout] Pulse Rate [ From Monitor] Respiratory 15 17 Rate Respiratory Rate [Bilateral Throughout] Blood Pressure 75/39 72/37 69/34 O2 Sat by Pulse 99 100 99 Oximetry 07/28/20 07/28/20 07/28/20 01:20 01:30 01:40 Temperature Pulse Rate 110 H 105 H 99 H Pulse Rate [ Bilateral Throughout] Pulse Rate [ From Monitor] Respiratory 32 H 19 26 H Rate Respiratory Rate [Bilateral Throughout] Blood Pressure 76/36 77/33 80/38 O2 Sat by Pulse 98 98 97 Oximetry 07/28/20 07/28/20 07/28/20 01:50 02:00 02:10 Temperature Pulse Rate 98 H 98 H 96 H Pulse Rate [ 97 H Bilateral Throughout] Pulse Rate [ From Monitor] Respiratory 29 H 30 H 31 H Rate Respiratory 33 H Rate [Bilateral Throughout] Blood Pressure 83/36 87/45 95/52 O2 Sat by Pulse 98 99 97 Oximetry 07/28/20 07/28/20 07/28/20 02:20 02:30 02:40 Temperature Pulse Rate 93 H 97 H 94 H Pulse Rate [ Bilateral Throughout] Pulse Rate [ From Monitor] Respiratory 20 20 23 Rate Respiratory Rate [Bilateral Throughout] Blood Pressure 92/56 103/58 113/60 O2 Sat by Pulse 100 100 100 Oximetry 07/28/20 07/28/20 07/28/20 02:50 03:00 03:10 Temperature Pulse Rate 96 H 98 H 95 H Pulse Rate [ Bilateral Throughout] Pulse Rate [ From Monitor] Respiratory 19 17 20 Rate Respiratory Rate [Bilateral Throughout] Blood Pressure 109/66 122/62 118/64 O2 Sat by Pulse 100 100 100 Oximetry 07/28/20 07/28/20 07/28/20 03:20 03:30 03:40 Temperature 97.0 F L Pulse Rate 98 H 101 H 97 H Pulse Rate [ Bilateral Throughout] Pulse Rate [ From Monitor] Respiratory 17 33 H 17 Rate Respiratory Rate [Bilateral Throughout] Blood Pressure 110/60 105/70 107/62 O2 Sat by Pulse 100 99 99 Oximetry 07/28/20 07/28/20 07/28/20 03:50 03:54 04:00 Temperature Pulse Rate 95 H 94 H 93 H Pulse Rate [ Bilateral Throughout] Pulse Rate [ 95 H From Monitor] Respiratory 28 H 20 Rate Respiratory Rate [Bilateral Throughout] Blood Pressure 106/61 102/60 107/61 O2 Sat by Pulse 99 99 99 Oximetry 07/28/20 07/28/20 07/28/20 04:10 04:20 04:30 Temperature Pulse Rate 96 H 95 H 93 H Pulse Rate [ Bilateral Throughout] Pulse Rate [ From Monitor] Respiratory 20 21 21 Rate Respiratory Rate [Bilateral Throughout] Blood Pressure 109/59 98/58 104/60 O2 Sat by Pulse 99 99 99 Oximetry 07/28/20 07/28/20 07/28/20 04:40 04:50 05:00 Temperature Pulse Rate 95 H 90 95 H Pulse Rate [ Bilateral Throughout] Pulse Rate [ From Monitor] Respiratory 16 18 17 Rate Respiratory Rate [Bilateral Throughout] Blood Pressure 111/56 102/60 105/61 O2 Sat by Pulse 99 99 99 Oximetry 07/28/20 07/28/20 07/28/20 05:10 05:20 05:30 Temperature Pulse Rate 91 H 91 H 91 H Pulse Rate [ Bilateral Throughout] Pulse Rate [ From Monitor] Respiratory 21 18 26 H Rate Respiratory Rate [Bilateral Throughout] Blood Pressure 106/61 103/58 97/54 O2 Sat by Pulse 99 99 99 Oximetry 07/28/20 07/28/20 07/28/20 05:40 05:50 06:00 Temperature Pulse Rate 90 89 91 H Pulse Rate [ Bilateral Throughout] Pulse Rate [ From Monitor] Respiratory 34 H 30 H 22 Rate Respiratory Rate [Bilateral Throughout] Blood Pressure 99/58 106/51 99/52 O2 Sat by Pulse 99 99 99 Oximetry 07/28/20 07/28/20 07/28/20 06:10 06:15 06:20 Temperature Pulse Rate 82 Pulse Rate [ Bilateral Throughout] Pulse Rate [ From Monitor] Respiratory 38 H 22 Rate Respiratory Rate [Bilateral Throughout] Blood Pressure 101/65 83/44 O2 Sat by Pulse 99 98 Oximetry 07/28/20 07/28/20 07/28/20 06:30 06:40 07:00 Temperature Pulse Rate 79 79 70 Pulse Rate [ Bilateral Throughout] Pulse Rate [ From Monitor] Respiratory 29 H 22 21 Rate Respiratory Rate [Bilateral Throughout] Blood Pressure 88/47 90/47 96/53 O2 Sat by Pulse 99 99 100 Oximetry 07/28/20 07/28/20 07/28/20 07:30 07:43 08:00 Temperature 97 F L Pulse Rate 73 69 76 Pulse Rate [ 96 H Bilateral Throughout] Pulse Rate [ From Monitor] Respiratory 28 H 15 Rate Respiratory 25 H Rate [Bilateral Throughout] Blood Pressure 103/58 100/55 110/58 O2 Sat by Pulse 99 98 93 Oximetry 07/28/20 08:30 Temperature Pulse Rate 76 Pulse Rate [ Bilateral Throughout] Pulse Rate [ From Monitor] Respiratory 26 H Rate Respiratory Rate [Bilateral Throughout] Blood Pressure 96/53 O2 Sat by Pulse 95 Oximetry CBC and BMP: 07/29/20 04:00 07/29/20 04:50 ABG, PT/INR, D-dimer: ABG ABG pH 7.475 (7.320-7.450) H 07/28/20 06:06 POC ABG pCO2 42.7 mmHg (32.0-48.0) 07/28/20 06:06 POC ABG pO2 99.1 mmHg (83-108) 07/28/20 06:06 POC ABG HCO3 30.7 07/28/20 06:06 ABG O2 Saturation 97.9 (0-100) 07/28/20 06:06 PT/INR, D-dimer PT 20.1 Sec. (12.2-14.9) H 07/20/20 19:32 INR 1.72 (0.87-1.13) H 07/20/20 19:32 D-Dimer 2098.49 ng/mlDDU (0-234) H 07/20/20 21:59 Abnormal lab findings: Abnormal Labs 07/20/20 07/20/20 07/20/20 19:20 19:27 19:27 WBC 17.9 H RBC Hgb Hct MCV 102 H MCH 33 H Plt Count Lymph % (Auto) 4.4 L Lymph # (Auto) 0.8 L Baso # (Auto) 0.3 H Seg Neutrophils % 90.0 H Seg Neuts % (Manual) Lymphocytes % (Manual) Seg Neutrophils # 16.1 H Seg Neutrophils # Man Lymphocytes # (Manual) PT INR D-Dimer ABG pH POC ABG pO2 ABG Hemoglobin ABG Oxyhemoglobin ABG Sodium ABG Potassium ABG Chloride ABG Glucose Sodium 130 L Potassium 5.6 H Chloride 84.4 L Carbon Dioxide 14 L BUN 108 H Creatinine 7.7 H Glucose POC Glucose 55 L Lactic Acid Calcium 7.4 L Phosphorus Magnesium Ferritin AST 306 H ALT 97 H Ammonia Lactate Dehydrogenase Total Creatine Kinase CK-MB (CK-2) C-Reactive Protein Total Protein Albumin 3.3 L Prealbumin Vitamin B12 Arterial Blood Glucose Arterial Blood Ionized Calcium Urine WBC (Auto) Urine Creatinine Hepatitis C Antibody 07/20/20 07/20/20 07/20/20 19:27 19:27 19:32 WBC RBC Hgb Hct MCV MCH Plt Count Lymph % (Auto) Lymph # (Auto) Baso # (Auto) Seg Neutrophils % Seg Neuts % (Manual) Lymphocytes % (Manual) Seg Neutrophils # Seg Neutrophils # Man Lymphocytes # (Manual) PT 20.1 H INR 1.72 H D-Dimer ABG pH POC ABG pO2 ABG Hemoglobin ABG Oxyhemoglobin ABG Sodium ABG Potassium ABG Chloride ABG Glucose Sodium Potassium Chloride Carbon Dioxide BUN Creatinine Glucose POC Glucose Lactic Acid 3.10 H* Calcium Phosphorus Magnesium Ferritin AST ALT Ammonia Lactate Dehydrogenase Total Creatine Kinase 35960 H CK-MB (CK-2) 289.0 H C-Reactive Protein Total Protein Albumin Prealbumin Vitamin B12 Arterial Blood Glucose Arterial Blood Ionized Calcium Urine WBC (Auto) Urine Creatinine Hepatitis C Antibody 07/20/20 07/20/20 07/20/20 19:52 19:59 20:41 WBC RBC Hgb Hct MCV MCH Plt Count Lymph % (Auto) Lymph # (Auto) Baso # (Auto) Seg Neutrophils % Seg Neuts % (Manual) Lymphocytes % (Manual) Seg Neutrophils # Seg Neutrophils # Man Lymphocytes # (Manual) PT INR D-Dimer ABG pH 7.016 L POC ABG pO2 55.7 L ABG Hemoglobin ABG Oxyhemoglobin 81.6 L ABG Sodium 129.0 L ABG Potassium 5.0 H ABG Chloride ABG Glucose 157 H Sodium Potassium Chloride Carbon Dioxide BUN Creatinine Glucose POC Glucose 108 H Lactic Acid Calcium Phosphorus Magnesium Ferritin AST ALT Ammonia Lactate Dehydrogenase Total Creatine Kinase CK-MB (CK-2) C-Reactive Protein Total Protein Albumin Prealbumin Vitamin B12 Arterial Blood Glucose 157 H Arterial Blood Ionized Calcium 3.9 L Urine WBC (Auto) > 182.0 H Urine Creatinine Hepatitis C Antibody 07/20/20 07/20/20 07/20/20 21:59 21:59 21:59 WBC RBC Hgb Hct MCV MCH Plt Count Lymph % (Auto) Lymph # (Auto) Baso # (Auto) Seg Neutrophils % Seg Neuts % (Manual) Lymphocytes % (Manual) Seg Neutrophils # Seg Neutrophils # Man Lymphocytes # (Manual) PT INR D-Dimer 2098.49 H ABG pH POC ABG pO2 ABG Hemoglobin ABG Oxyhemoglobin ABG Sodium ABG Potassium ABG Chloride ABG Glucose Sodium Potassium Chloride Carbon Dioxide BUN Creatinine Glucose POC Glucose Lactic Acid Calcium Phosphorus Magnesium Ferritin 1648.0 H AST ALT Ammonia Lactate Dehydrogenase 732 H Total Creatine Kinase CK-MB (CK-2) C-Reactive Protein 37.90 H Total Protein Albumin Prealbumin Vitamin B12 Arterial Blood Glucose Arterial Blood Ionized Calcium Urine WBC (Auto) Urine Creatinine Hepatitis C Antibody 07/20/20 07/21/20 07/21/20 23:35 01:56 04:00 WBC 15.1 H RBC 3.52 L Hgb Hct MCV 100 H MCH 33 H Plt Count Lymph % (Auto) Lymph # (Auto) Baso # (Auto) Seg Neutrophils % Seg Neuts % (Manual) Lymphocytes % (Manual) 2.0 L Seg Neutrophils # Seg Neutrophils # Man 9.4 H Lymphocytes # (Manual) 0.3 L PT INR D-Dimer ABG pH POC ABG pO2 ABG Hemoglobin ABG Oxyhemoglobin ABG Sodium ABG Potassium ABG Chloride ABG Glucose Sodium Potassium 5.8 H Chloride 95.4 L Carbon Dioxide 17 L BUN 100 H Creatinine 6.8 H Glucose 61 L POC Glucose 138 H Lactic Acid Calcium 6.3 L Phosphorus Magnesium Ferritin AST ALT Ammonia Lactate Dehydrogenase Total Creatine Kinase CK-MB (CK-2) C-Reactive Protein Total Protein Albumin Prealbumin Vitamin B12 Arterial Blood Glucose Arterial Blood Ionized Calcium Urine WBC (Auto) Urine Creatinine Hepatitis C Antibody 07/21/20 07/21/20 07/21/20 04:00 05:24 06:06 WBC RBC Hgb Hct MCV MCH Plt Count Lymph % (Auto) Lymph # (Auto) Baso # (Auto) Seg Neutrophils % Seg Neuts % (Manual) Lymphocytes % (Manual) Seg Neutrophils # Seg Neutrophils # Man Lymphocytes # (Manual) PT INR D-Dimer ABG pH POC ABG pO2 ABG Hemoglobin ABG Oxyhemoglobin ABG Sodium ABG Potassium ABG Chloride ABG Glucose Sodium Potassium 6.1 H* Chloride 97.2 L Carbon Dioxide 21 L BUN 104 H Creatinine 6.7 H Glucose POC Glucose 121 H 124 H Lactic Acid Calcium 6.5 L Phosphorus Magnesium Ferritin AST ALT Ammonia Lactate Dehydrogenase Total Creatine Kinase CK-MB (CK-2) C-Reactive Protein Total Protein Albumin Prealbumin Vitamin B12 Arterial Blood Glucose Arterial Blood Ionized Calcium Urine WBC (Auto) Urine Creatinine Hepatitis C Antibody 07/21/20 07/21/20 07/21/20 06:58 07:58 08:20 WBC RBC Hgb Hct MCV MCH Plt Count Lymph % (Auto) Lymph # (Auto) Baso # (Auto) Seg Neutrophils % Seg Neuts % (Manual) Lymphocytes % (Manual) Seg Neutrophils # Seg Neutrophils # Man Lymphocytes # (Manual) PT INR D-Dimer ABG pH POC ABG pO2 ABG Hemoglobin ABG Oxyhemoglobin ABG Sodium ABG Potassium ABG Chloride ABG Glucose Sodium Potassium Chloride Carbon Dioxide BUN Creatinine Glucose POC Glucose 128 H 133 H Lactic Acid Calcium Phosphorus Magnesium Ferritin AST ALT Ammonia Lactate Dehydrogenase Total Creatine Kinase 16856 H CK-MB (CK-2) C-Reactive Protein Total Protein Albumin Prealbumin Vitamin B12 Arterial Blood Glucose Arterial Blood Ionized Calcium Urine WBC (Auto) Urine Creatinine Hepatitis C Antibody 07/21/20 07/21/20 07/21/20 09:15 09:31 10:09 WBC RBC Hgb Hct MCV MCH Plt Count Lymph % (Auto) Lymph # (Auto) Baso # (Auto) Seg Neutrophils % Seg Neuts % (Manual) Lymphocytes % (Manual) Seg Neutrophils # Seg Neutrophils # Man Lymphocytes # (Manual) PT INR D-Dimer ABG pH 7.239 L POC ABG pO2 70.1 L ABG Hemoglobin 11.4 L ABG Oxyhemoglobin 92.6 L ABG Sodium 135.2 L ABG Potassium 5.1 H ABG Chloride ABG Glucose 147 H Sodium Potassium Chloride Carbon Dioxide BUN Creatinine Glucose POC Glucose 129 H Lactic Acid Calcium Phosphorus Magnesium Ferritin AST ALT Ammonia 24.0 L Lactate Dehydrogenase Total Creatine Kinase CK-MB (CK-2) C-Reactive Protein Total Protein Albumin Prealbumin Vitamin B12 Arterial Blood Glucose 147 H Arterial Blood Ionized Calcium 3.4 L Urine WBC (Auto) Urine Creatinine Hepatitis C Antibody 07/21/20 07/21/20 07/21/20 12:55 14:19 17:20 WBC RBC Hgb Hct MCV MCH Plt Count Lymph % (Auto) Lymph # (Auto) Baso # (Auto) Seg Neutrophils % Seg Neuts % (Manual) Lymphocytes % (Manual) Seg Neutrophils # Seg Neutrophils # Man Lymphocytes # (Manual) PT INR D-Dimer ABG pH POC ABG pO2 ABG Hemoglobin ABG Oxyhemoglobin ABG Sodium ABG Potassium ABG Chloride ABG Glucose Sodium Potassium Chloride Carbon Dioxide 20 L BUN 88 H Creatinine 4.0 H Glucose 166 H POC Glucose 157 H 172 H Lactic Acid Calcium 6.0 L Phosphorus Magnesium Ferritin AST ALT Ammonia Lactate Dehydrogenase Total Creatine Kinase CK-MB (CK-2) C-Reactive Protein Total Protein Albumin Prealbumin Vitamin B12 Arterial Blood Glucose Arterial Blood Ionized Calcium Urine WBC (Auto) Urine Creatinine Hepatitis C Antibody 07/21/20 07/21/20 07/21/20 17:30 20:59 23:59 WBC RBC Hgb Hct MCV MCH Plt Count Lymph % (Auto) Lymph # (Auto) Baso # (Auto) Seg Neutrophils % Seg Neuts % (Manual) Lymphocytes % (Manual) Seg Neutrophils # Seg Neutrophils # Man Lymphocytes # (Manual) PT INR D-Dimer ABG pH 7.174 L POC ABG pO2 69.3 L ABG Hemoglobin 11.9 L ABG Oxyhemoglobin 91.0 L ABG Sodium 134.0 L ABG Potassium 5.4 H ABG Chloride ABG Glucose 60 L Sodium Potassium Chloride 110.0 H Carbon Dioxide 21 L BUN 72 H Creatinine 2.7 H Glucose 175 H POC Glucose 122 H Lactic Acid Calcium 5.6 L* Phosphorus Magnesium Ferritin AST ALT Ammonia Lactate Dehydrogenase Total Creatine Kinase CK-MB (CK-2) C-Reactive Protein Total Protein Albumin Prealbumin Vitamin B12 Arterial Blood Glucose 60 L Arterial Blood Ionized Calcium 3.6 L Urine WBC (Auto) Urine Creatinine Hepatitis C Antibody 07/21/20 07/22/20 07/22/20 Unknown 02:00 02:03 WBC RBC Hgb Hct MCV MCH Plt Count Lymph % (Auto) Lymph # (Auto) Baso # (Auto) Seg Neutrophils % Seg Neuts % (Manual) Lymphocytes % (Manual) Seg Neutrophils # Seg Neutrophils # Man Lymphocytes # (Manual) PT INR D-Dimer ABG pH POC ABG pO2 ABG Hemoglobin ABG Oxyhemoglobin ABG Sodium ABG Potassium ABG Chloride ABG Glucose Sodium 146 H Potassium Chloride 109.9 H Carbon Dioxide BUN 56 H Creatinine 1.6 H Glucose 125 H POC Glucose 113 H Lactic Acid Calcium 6.5 L D Phosphorus Magnesium Ferritin AST ALT Ammonia Lactate Dehydrogenase Total Creatine Kinase CK-MB (CK-2) C-Reactive Protein Total Protein Albumin Prealbumin Vitamin B12 Arterial Blood Glucose Arterial Blood Ionized Calcium Urine WBC (Auto) 28.0 H Urine Creatinine Hepatitis C Antibody 07/22/20 07/22/20 07/22/20 05:00 06:27 09:44 WBC RBC 3.11 L Hgb Hct MCV 99 H MCH 34 H Plt Count 86 L Lymph % (Auto) Lymph # (Auto) Baso # (Auto) Seg Neutrophils % Seg Neuts % (Manual) Lymphocytes % (Manual) Seg Neutrophils # Seg Neutrophils # Man Lymphocytes # (Manual) PT INR D-Dimer ABG pH POC ABG pO2 ABG Hemoglobin ABG Oxyhemoglobin ABG Sodium ABG Potassium ABG Chloride ABG Glucose Sodium 148 H Potassium Chloride 111.3 H Carbon Dioxide BUN 53 H Creatinine 1.4 H Glucose 135 H POC Glucose 122 H Lactic Acid Calcium 7.2 L Phosphorus Magnesium Ferritin AST ALT Ammonia Lactate Dehydrogenase Total Creatine Kinase CK-MB (CK-2) C-Reactive Protein Total Protein Albumin Prealbumin Vitamin B12 Arterial Blood Glucose Arterial Blood Ionized Calcium Urine WBC (Auto) Urine Creatinine Hepatitis C Antibody 07/22/20 07/22/20 07/22/20 11:00 11:56 21:18 WBC RBC Hgb Hct MCV MCH Plt Count Lymph % (Auto) Lymph # (Auto) Baso # (Auto) Seg Neutrophils % Seg Neuts % (Manual) Lymphocytes % (Manual) Seg Neutrophils # Seg Neutrophils # Man Lymphocytes # (Manual) PT INR D-Dimer ABG pH POC ABG pO2 73.5 L ABG Hemoglobin 11.1 L ABG Oxyhemoglobin ABG Sodium 145.8 H ABG Potassium ABG Chloride 114.0 H ABG Glucose 125 H Sodium Potassium Chloride Carbon Dioxide BUN Creatinine Glucose POC Glucose 126 H 126 H Lactic Acid Calcium Phosphorus Magnesium Ferritin AST ALT Ammonia Lactate Dehydrogenase Total Creatine Kinase CK-MB (CK-2) C-Reactive Protein Total Protein Albumin Prealbumin Vitamin B12 Arterial Blood Glucose 125 H Arterial Blood Ionized Calcium 4.2 L Urine WBC (Auto) Urine Creatinine Hepatitis C Antibody 07/23/20 07/23/20 07/23/20 01:43 04:48 04:48 WBC 13.2 H RBC 3.47 L Hgb Hct MCV 99 H MCH 33 H Plt Count 98 L Lymph % (Auto) Lymph # (Auto) Baso # (Auto) Seg Neutrophils % Seg Neuts % (Manual) Lymphocytes % (Manual) Seg Neutrophils # Seg Neutrophils # Man Lymphocytes # (Manual) PT INR D-Dimer ABG pH POC ABG pO2 ABG Hemoglobin ABG Oxyhemoglobin ABG Sodium ABG Potassium ABG Chloride ABG Glucose Sodium 155 H Potassium 3.1 L D Chloride 112.2 H Carbon Dioxide BUN 34 H Creatinine Glucose 143 H POC Glucose 146 H Lactic Acid Calcium 7.8 L Phosphorus Magnesium Ferritin AST ALT Ammonia Lactate Dehydrogenase Total Creatine Kinase CK-MB (CK-2) C-Reactive Protein Total Protein Albumin Prealbumin Vitamin B12 Arterial Blood Glucose Arterial Blood Ionized Calcium Urine WBC (Auto) Urine Creatinine Hepatitis C Antibody 07/23/20 07/23/20 07/23/20 05:32 11:49 14:33 WBC RBC Hgb Hct MCV MCH Plt Count Lymph % (Auto) Lymph # (Auto) Baso # (Auto) Seg Neutrophils % Seg Neuts % (Manual) Lymphocytes % (Manual) Seg Neutrophils # Seg Neutrophils # Man Lymphocytes # (Manual) PT INR D-Dimer ABG pH POC ABG pO2 ABG Hemoglobin ABG Oxyhemoglobin ABG Sodium ABG Potassium ABG Chloride ABG Glucose Sodium 157 H Potassium 3.5 L Chloride 115.0 H Carbon Dioxide 32 H BUN 34 H Creatinine Glucose 119 H POC Glucose 149 H 112 H Lactic Acid Calcium Phosphorus Magnesium Ferritin AST ALT Ammonia Lactate Dehydrogenase Total Creatine Kinase CK-MB (CK-2) C-Reactive Protein Total Protein Albumin Prealbumin Vitamin B12 Arterial Blood Glucose Arterial Blood Ionized Calcium Urine WBC (Auto) Urine Creatinine Hepatitis C Antibody 07/23/20 07/23/20 07/23/20 17:33 17:33 17:33 WBC RBC Hgb Hct MCV MCH Plt Count Lymph % (Auto) Lymph # (Auto) Baso # (Auto) Seg Neutrophils % Seg Neuts % (Manual) Lymphocytes % (Manual) Seg Neutrophils # Seg Neutrophils # Man Lymphocytes # (Manual) PT INR D-Dimer ABG pH POC ABG pO2 ABG Hemoglobin ABG Oxyhemoglobin ABG Sodium ABG Potassium ABG Chloride ABG Glucose Sodium Potassium Chloride Carbon Dioxide BUN Creatinine Glucose POC Glucose Lactic Acid Calcium Phosphorus 1.80 L Magnesium Ferritin AST 158 H ALT 96 H Ammonia Lactate Dehydrogenase Total Creatine Kinase CK-MB (CK-2) C-Reactive Protein Total Protein 6.2 L Albumin 2.9 L Prealbumin Vitamin B12 Arterial Blood Glucose Arterial Blood Ionized Calcium Urine WBC (Auto) Urine Creatinine Hepatitis C Antibody Reactive A 07/24/20 07/24/20 07/24/20 02:17 05:20 05:29 WBC RBC Hgb Hct MCV MCH Plt Count Lymph % (Auto) Lymph # (Auto) Baso # (Auto) Seg Neutrophils % Seg Neuts % (Manual) Lymphocytes % (Manual) Seg Neutrophils # Seg Neutrophils # Man Lymphocytes # (Manual) PT INR D-Dimer ABG pH POC ABG pO2 ABG Hemoglobin ABG Oxyhemoglobin ABG Sodium ABG Potassium ABG Chloride ABG Glucose Sodium 163 H* Potassium Chloride 118.6 H Carbon Dioxide BUN 33 H Creatinine Glucose 118 H POC Glucose 106 H 111 H Lactic Acid Calcium 7.9 L Phosphorus Magnesium Ferritin AST ALT Ammonia Lactate Dehydrogenase Total Creatine Kinase CK-MB (CK-2) C-Reactive Protein Total Protein Albumin Prealbumin Vitamin B12 Arterial Blood Glucose Arterial Blood Ionized Calcium Urine WBC (Auto) Urine Creatinine Hepatitis C Antibody 07/24/20 07/24/20 07/24/20 08:00 11:52 14:43 WBC RBC Hgb Hct MCV MCH Plt Count Lymph % (Auto) Lymph # (Auto) Baso # (Auto) Seg Neutrophils % Seg Neuts % (Manual) Lymphocytes % (Manual) Seg Neutrophils # Seg Neutrophils # Man Lymphocytes # (Manual) PT INR D-Dimer ABG pH POC ABG pO2 ABG Hemoglobin ABG Oxyhemoglobin ABG Sodium ABG Potassium ABG Chloride ABG Glucose Sodium 155 H Potassium 3.5 L Chloride 112.7 H Carbon Dioxide 32 H BUN 28 H Creatinine Glucose 125 H POC Glucose 109 H 118 H Lactic Acid Calcium 8.2 L Phosphorus Magnesium Ferritin AST ALT Ammonia Lactate Dehydrogenase Total Creatine Kinase CK-MB (CK-2) C-Reactive Protein Total Protein Albumin Prealbumin Vitamin B12 Arterial Blood Glucose Arterial Blood Ionized Calcium Urine WBC (Auto) Urine Creatinine Hepatitis C Antibody 07/24/20 07/24/20 07/24/20 16:52 19:33 23:02 WBC RBC Hgb Hct MCV MCH Plt Count Lymph % (Auto) Lymph # (Auto) Baso # (Auto) Seg Neutrophils % Seg Neuts % (Manual) Lymphocytes % (Manual) Seg Neutrophils # Seg Neutrophils # Man Lymphocytes # (Manual) PT INR D-Dimer ABG pH 7.523 H POC ABG pO2 76.4 L ABG Hemoglobin 10.3 L ABG Oxyhemoglobin ABG Sodium 151.2 H ABG Potassium 2.4 L ABG Chloride 111.0 H ABG Glucose 125 H Sodium Potassium Chloride Carbon Dioxide BUN Creatinine Glucose POC Glucose 111 H 127 H Lactic Acid Calcium Phosphorus Magnesium Ferritin AST ALT Ammonia Lactate Dehydrogenase Total Creatine Kinase CK-MB (CK-2) C-Reactive Protein Total Protein Albumin Prealbumin Vitamin B12 Arterial Blood Glucose 125 H Arterial Blood Ionized Calcium 4.3 L Urine WBC (Auto) Urine Creatinine Hepatitis C Antibody 07/25/20 07/25/20 07/25/20 02:12 05:15 05:15 WBC 12.0 H RBC 3.11 L Hgb Hct MCV 99 H MCH 33 H Plt Count 77 L Lymph % (Auto) 9.5 L Lymph # (Auto) 1.1 L Baso # (Auto) Seg Neutrophils % 88.2 H Seg Neuts % (Manual) Lymphocytes % (Manual) Seg Neutrophils # 10.6 H Seg Neutrophils # Man Lymphocytes # (Manual) PT INR D-Dimer ABG pH POC ABG pO2 ABG Hemoglobin ABG Oxyhemoglobin ABG Sodium ABG Potassium ABG Chloride ABG Glucose Sodium 152 H Potassium 2.6 L* D Chloride 109.5 H Carbon Dioxide 34 H BUN 21 H Creatinine 0.5 L Glucose 124 H POC Glucose 124 H Lactic Acid Calcium 7.7 L Phosphorus Magnesium Ferritin AST ALT Ammonia Lactate Dehydrogenase Total Creatine Kinase CK-MB (CK-2) C-Reactive Protein Total Protein Albumin Prealbumin Vitamin B12 Arterial Blood Glucose Arterial Blood Ionized Calcium Urine WBC (Auto) Urine Creatinine Hepatitis C Antibody 07/25/20 07/25/20 07/25/20 05:42 14:35 14:35 WBC RBC Hgb Hct MCV MCH Plt Count Lymph % (Auto) Lymph # (Auto) Baso # (Auto) Seg Neutrophils % Seg Neuts % (Manual) Lymphocytes % (Manual) Seg Neutrophils # Seg Neutrophils # Man Lymphocytes # (Manual) PT INR D-Dimer ABG pH POC ABG pO2 ABG Hemoglobin ABG Oxyhemoglobin ABG Sodium ABG Potassium ABG Chloride ABG Glucose Sodium 151 H Potassium 3.4 L D Chloride 109.7 H Carbon Dioxide 31 H BUN Creatinine 0.5 L Glucose POC Glucose 108 H Lactic Acid Calcium 7.7 L Phosphorus 1.70 L Magnesium Ferritin AST ALT Ammonia Lactate Dehydrogenase Total Creatine Kinase CK-MB (CK-2) C-Reactive Protein Total Protein Albumin Prealbumin Vitamin B12 Arterial Blood Glucose Arterial Blood Ionized Calcium Urine WBC (Auto) Urine Creatinine Hepatitis C Antibody 07/25/20 07/25/20 07/26/20 18:29 21:07 04:00 WBC RBC Hgb Hct MCV MCH Plt Count Lymph % (Auto) Lymph # (Auto) Baso # (Auto) Seg Neutrophils % Seg Neuts % (Manual) Lymphocytes % (Manual) Seg Neutrophils # Seg Neutrophils # Man Lymphocytes # (Manual) PT INR D-Dimer ABG pH POC ABG pO2 ABG Hemoglobin ABG Oxyhemoglobin ABG Sodium ABG Potassium ABG Chloride ABG Glucose Sodium 147 H 146 H Potassium 3.3 L D Chloride Carbon Dioxide 35 H BUN Creatinine 0.4 L 0.4 L Glucose 122 H 114 H POC Glucose 120 H Lactic Acid Calcium 7.5 L 7.3 L Phosphorus Magnesium Ferritin AST 74 H ALT 79 H Ammonia Lactate Dehydrogenase Total Creatine Kinase CK-MB (CK-2) C-Reactive Protein Total Protein 5.0 L Albumin 2.5 L Prealbumin Vitamin B12 Arterial Blood Glucose Arterial Blood Ionized Calcium Urine WBC (Auto) Urine Creatinine Hepatitis C Antibody 07/26/20 07/26/20 07/26/20 07:14 14:50 18:32 WBC RBC Hgb Hct MCV MCH Plt Count Lymph % (Auto) Lymph # (Auto) Baso # (Auto) Seg Neutrophils % Seg Neuts % (Manual) Lymphocytes % (Manual) Seg Neutrophils # Seg Neutrophils # Man Lymphocytes # (Manual) PT INR D-Dimer ABG pH POC ABG pO2 ABG Hemoglobin ABG Oxyhemoglobin ABG Sodium ABG Potassium ABG Chloride ABG Glucose Sodium Potassium Chloride Carbon Dioxide BUN Creatinine Glucose POC Glucose 44 L Lactic Acid Calcium Phosphorus Magnesium Ferritin AST ALT Ammonia Lactate Dehydrogenase Total Creatine Kinase CK-MB (CK-2) C-Reactive Protein Total Protein Albumin Prealbumin Vitamin B12 1235 H Arterial Blood Glucose Arterial Blood Ionized Calcium Urine WBC (Auto) Urine Creatinine 40.4 H Hepatitis C Antibody 07/26/20 07/26/20 07/26/20 18:34 23:11 Unknown WBC 12.6 H RBC 2.92 L Hgb 9.8 L Hct 29.3 L MCV 100 H MCH 34 H Plt Count 73 L Lymph % (Auto) Lymph # (Auto) Baso # (Auto) Seg Neutrophils % Seg Neuts % (Manual) Lymphocytes % (Manual) Seg Neutrophils # Seg Neutrophils # Man Lymphocytes # (Manual) PT INR D-Dimer ABG pH POC ABG pO2 ABG Hemoglobin ABG Oxyhemoglobin ABG Sodium ABG Potassium ABG Chloride ABG Glucose Sodium Potassium Chloride Carbon Dioxide BUN Creatinine Glucose POC Glucose 106 H 112 H Lactic Acid Calcium Phosphorus Magnesium Ferritin AST ALT Ammonia Lactate Dehydrogenase Total Creatine Kinase CK-MB (CK-2) C-Reactive Protein Total Protein Albumin Prealbumin Vitamin B12 Arterial Blood Glucose Arterial Blood Ionized Calcium Urine WBC (Auto) Urine Creatinine Hepatitis C Antibody 07/27/20 07/27/20 07/27/20 04:00 05:17 11:33 WBC RBC Hgb Hct MCV MCH Plt Count Lymph % (Auto) Lymph # (Auto) Baso # (Auto) Seg Neutrophils % Seg Neuts % (Manual) Lymphocytes % (Manual) Seg Neutrophils # Seg Neutrophils # Man Lymphocytes # (Manual) PT INR D-Dimer ABG pH POC ABG pO2 ABG Hemoglobin ABG Oxyhemoglobin ABG Sodium ABG Potassium ABG Chloride ABG Glucose Sodium Potassium 3.2 L Chloride Carbon Dioxide 37 H BUN Creatinine 0.3 L Glucose 120 H POC Glucose 123 H 125 H Lactic Acid Calcium 7.4 L Phosphorus Magnesium 1.30 L Ferritin AST ALT Ammonia Lactate Dehydrogenase Total Creatine Kinase CK-MB (CK-2) C-Reactive Protein Total Protein Albumin Prealbumin Vitamin B12 Arterial Blood Glucose Arterial Blood Ionized Calcium Urine WBC (Auto) Urine Creatinine Hepatitis C Antibody 07/27/20 07/27/20 07/27/20 16:11 18:35 18:35 WBC RBC Hgb Hct MCV MCH Plt Count Lymph % (Auto) Lymph # (Auto) Baso # (Auto) Seg Neutrophils % Seg Neuts % (Manual) Lymphocytes % (Manual) Seg Neutrophils # Seg Neutrophils # Man Lymphocytes # (Manual) PT INR D-Dimer ABG pH POC ABG pO2 ABG Hemoglobin ABG Oxyhemoglobin ABG Sodium ABG Potassium ABG Chloride ABG Glucose Sodium Potassium Chloride Carbon Dioxide BUN Creatinine Glucose POC Glucose 121 H Lactic Acid Calcium Phosphorus Magnesium Ferritin AST ALT Ammonia Lactate Dehydrogenase Total Creatine Kinase CK-MB (CK-2) C-Reactive Protein Total Protein Albumin Prealbumin 0.079 L Vitamin B12 1123 H Arterial Blood Glucose Arterial Blood Ionized Calcium Urine WBC (Auto) Urine Creatinine Hepatitis C Antibody 07/27/20 07/27/20 07/28/20 23:46 Unknown 01:05 WBC 11.2 H RBC 3.02 L Hgb Hct 30.1 L MCV 100 H MCH 33 H Plt Count 77 L Lymph % (Auto) Lymph # (Auto) Baso # (Auto) Seg Neutrophils % Seg Neuts % (Manual) Lymphocytes % (Manual) Seg Neutrophils # Seg Neutrophils # Man Lymphocytes # (Manual) PT INR D-Dimer ABG pH POC ABG pO2 ABG Hemoglobin ABG Oxyhemoglobin ABG Sodium ABG Potassium ABG Chloride ABG Glucose Sodium Potassium Chloride Carbon Dioxide BUN Creatinine Glucose POC Glucose 161 H 188 H Lactic Acid Calcium Phosphorus Magnesium Ferritin AST ALT Ammonia Lactate Dehydrogenase Total Creatine Kinase CK-MB (CK-2) C-Reactive Protein Total Protein Albumin Prealbumin Vitamin B12 Arterial Blood Glucose Arterial Blood Ionized Calcium Urine WBC (Auto) Urine Creatinine Hepatitis C Antibody 07/28/20 07/28/20 07/28/20 01:41 01:45 01:45 WBC 17.1 H RBC 2.79 L Hgb 9.2 L Hct 28.2 L MCV 101 H MCH 33 H Plt Count 102 L Lymph % (Auto) Lymph # (Auto) Baso # (Auto) Seg Neutrophils % Seg Neuts % (Manual) 95.0 H Lymphocytes % (Manual) 2.0 L Seg Neutrophils # Seg Neutrophils # Man 16.2 H Lymphocytes # (Manual) 0.3 L PT INR D-Dimer ABG pH POC ABG pO2 76.7 L ABG Hemoglobin 9.5 L ABG Oxyhemoglobin ABG Sodium ABG Potassium ABG Chloride ABG Glucose 179 H Sodium 147 H Potassium Chloride Carbon Dioxide 33 H BUN 22 H Creatinine Glucose 190 H POC Glucose Lactic Acid Calcium 6.9 L Phosphorus Magnesium Ferritin AST ALT Ammonia Lactate Dehydrogenase Total Creatine Kinase CK-MB (CK-2) C-Reactive Protein Total Protein 4.6 L Albumin 2.2 L Prealbumin Vitamin B12 Arterial Blood Glucose 179 H Arterial Blood Ionized Calcium 4.2 L Urine WBC (Auto) Urine Creatinine Hepatitis C Antibody 07/28/20 07/28/20 05:20 06:06 WBC RBC Hgb Hct MCV MCH Plt Count Lymph % (Auto) Lymph # (Auto) Baso # (Auto) Seg Neutrophils % Seg Neuts % (Manual) Lymphocytes % (Manual) Seg Neutrophils # Seg Neutrophils # Man Lymphocytes # (Manual) PT INR D-Dimer ABG pH 7.475 H POC ABG pO2 ABG Hemoglobin 10.7 L ABG Oxyhemoglobin ABG Sodium ABG Potassium ABG Chloride ABG Glucose 146 H Sodium Potassium Chloride Carbon Dioxide BUN Creatinine Glucose POC Glucose 159 H Lactic Acid Calcium Phosphorus Magnesium Ferritin AST ALT Ammonia Lactate Dehydrogenase Total Creatine Kinase CK-MB (CK-2) C-Reactive Protein Total Protein Albumin Prealbumin Vitamin B12 Arterial Blood Glucose 146 H Arterial Blood Ionized Calcium 4.2 L Urine WBC (Auto) Urine Creatinine Hepatitis C Antibody
[2020-07-28] MEDS: FOLIC ACID 1 MG in SODIUM CHLORIDE 0.9% 50 ML IV SCH (09:47)
[2020-07-28] MEDS: THIAMINE 100 MG in SODIUM CHLORIDE 0.9% 50 ML IV SCH (09:47)
[2020-07-28] MEDS ORDERED: FAMOTIDINE 20 MG/2 ML INJ IV SCH (10:00)
--- NOTE | 2020-07-28 10:56 | Event Note ---
I called Luis Diaz at [phone] and informed him of the events of last night regarding the respiratory and cardiac arrest. I informed that she was intubated and remains on ventilatory support with vasopressor support. I explained that she will obtain an MRI today. He and his mother expressed frustration about not being contacted overnight however I informed him of the event note from the overnight hospitalist. They did state that no calls were received. He stated that he does not have any further questions. His mother was also on the phone who demanded a physician also calls Luis because "He was told a doctor would call yesterday and no one called", "he keeps talking to nurses" and "he needs to talk to a doctor." David RODGERS was present for this call and further explained the patients status to spouse and mother in law and completed MRI questionnaire. Care team made aware of code status change
[2020-07-28 11:11] LABS: Hematocrit 31.9 % (30.3-42.9); Hemoglobin 10.6 gm/dl (10.1-14.3); Mean Corpuscular HGB Conc 33 % (30-34); Mean Corpuscular Volume 101 fl (79-97); Platelet Count 124 K/mm3 (140-440); Red Blood Count 3.16 M/mm3 (3.65-5.03); Red Cell Distribution Width 13.4 % (13.2-15.2)
--- NOTE | 2020-07-28 11:19 | Progress Note ---
Assessment and Plan Assessment and plan: -Antibiotic therapy -Trend CBC, BMP -Monitor UOP -Pulmonary hygiene -VAP bundle -ABGs as needed -PICC for PPN -Resume TF when current PPN bag ends -Neuro, CCM, ID consulted and appreciate recommendations -MRI brain, EEG pending DVT/GI prophylaxis: Heparin subcu, SCDs to bilateral lower extremities while in bed, PPI Dispo: ICU/ LTACH pending CODE STATUS: AND/DNR The high probability of a clinically significant, sudden or life threatening deterioration of the [multi] system(s) required my full and direct attention, intervention and personal management. The aggregate critical care time was [35] minutes. This time is in addition to time spent performing reported procedures but includes the following: [x] Data Review and interpretation [x] Patient assessment and monitoring of vital signs [x] Documentation [x] Medication orders and management History Interval history: This is a 65-year-old female with hepatitis C, migraines and hypertension who had presented to the emergency department on 07/21 with altered mental status after being found on the floor by family members. Upon evaluation in the emergency department patient was found to be hypothermic and hypotensive with leukocytosis and acute kidney failure consistent with sepsis. Patient also had elevated D- dimer, metabolic encephalopathy, lactic acidosis, hyperkalemia and rhabdomyolysis. Patient was admitted to the hospital service with sepsis, UTI, DOREEN, rhabdomyolysis, acute respiratory failure, metabolic acidosis, acute metabolic encephalopathy. Nephrology, infectious disease and critical care consulted. Sepsis Acute respiratory failure S/p cardiac arrest Urinary tract infection with Klebsiella pneumonia Rhabdomyolysis Thrombocytopenia Leukocytosis Acute metabolic encephalopathy Hypertension Hepatitis C Moderate pulmonary hypertension 07/21: Patient received a total of 4 L normal saline, was started on vasopressin and remains on BiPAP. Patient was on Levophed and D5 normal saline and a bicarbonate drip. D5 normal saline was discontinued. We will obtain a p.m. BMP and serial BMPs. Patient was contacted and the patient is now on AND/DNR. 07/22: Patient received a total of 12 L IV bolus and has been weaned off of Levophed and vasopressin. Patient's kidney function has improved drastically. Patient has been started on scheduled Haldol and we obtained a baseline ECG.she was started on maintenance fluid overnight which was stopped today. Echocard iogram shows moderate pulmonary hypertension. [facility] would like to obtain a CT chest when more stable. RT is titrating BiPAP FiO2 as tolerated and we will assess for nutrition once off BiPAP.Patient now has hypernatremia, hyperchloremia and her BUN/creatinine has decreased to 53/1.4. 07/23/2020; patient is still on BiPAP, agitated and confused. Kidney function improved. Patient was on Haldol and Geodon which did not help. Put the patient on Ativan as needed this morning. I have a long discussion with her yesterday and she does not want any heroic measures to be done. Does not want NG tube to be placed. Patient is DNR/DNI. Patient has UTI and on cefepime. Patient prognosis is guarded. Patient has hypernatremia and placed on D5 0.2% normal saline but no improvement. Hypokalemia, repleted according to electrolyte protocol. Patient prognosis is very poor. Patient is gasping for air. 07/24/2020; patient is on BiPAP, agitated and confused. Sodium is trending up and 163 this morning despite the patient is on D5 W at 125. Family declined NG tube. Patient's family states patient is not alcoholic. UDS is positive for opioid. Patient has delirium and supportive care. On alcohol withdrawal protocol. Patient has UTI and continue with cefepime. Urine culture noted. 07/25: This morning the time my examination patient is on BiPAP therapy and has NG tube to tube feedings. Patient has hypomagnesemic which was repleted and severely hypokalemic which was also repleted. Patient has hypernatremia and her leukocytosis has improved. Urine culture speciated to Klebsiella and antibiotic regimen has been modified per ID. 07/26: PICC placement for PPN and RT is weaning BiPAP. At the time of my exam she was on 12/12 at 85% FiO2. Patient was hypokalemic today which was repleted. Patient remains hypokalemic in the HIT panel is pending. We will obtain a neurology delivery consultant B12/folate. LTACH placement is pending per . Patient's mentation is better today and no acute events reported overnight. 07/27: Neurology would like to obtain an EEG and MRI brain without contrast and she completed antibiotic therapy today. Patient noted her increased diuresis which could be immobilizing her volume resuscitation, ATN diuresis or SIADH we will obtain a CT of her head with contrast. RT continues to wean BiPAP therapy. No acute events reported overnight. Patient is hypokalemic and hypomagnesemic today which was repleted. She remains on PPN. 07/28: Overnight the patient has a respiratory and cardiac arrest and a mucous plug was removed. She was intubated and placed on ventilatory support. She is on levophed and sedated with fentanyl. Patient has a MRI B which is pending. [facility] plans to bronch her tomorrow and would like to obtain a CT chest. Patient still feeding will be started on PPN is completed. She will receive LR bolus to replace her output over the past 24 hours. I spoke to the patient's and he has changed her CODE STATUS to AND/DNR which has been updated in the computer and care team has been informed. Hospitalist Physical - Constitutional Vitals: Temp Pulse Resp BP Pulse Ox 97 F L 76 26 H 96/53 95 07/28/20 08:00 07/28/20 08:30 07/28/20 08:30 07/28/20 08:30 07/28/20 08:30 General appearance: Present: no acute distress - EENT Eyes: Present: PERRL (Unequal pupils) ENT: clear oral mucosa - Neck Neck: Absent: masses or JVD, cervical LAD - Respiratory Respiratory effort: normal Respiratory: bilateral: diminished - Cardiovascular Rhythm: regular Heart Sounds: Present: S1 & S2. Absent: systolic murmur, diastolic murmur - Extremities Extremities: no ischemia, pulses intact, pulses symmetrical, No edema, normal temperature, normal color Peripheral Pulses: within normal limits - Abdominal General gastrointestinal: soft, non-tender, non-distended, normal bowel sounds - Integumentary Integumentary: Present: warm, dry - Psychiatric Psychiatric: other (sedated) - Neurologic Neurologic: other (sedated, does not respond to painful stimuli) HEART Score - HEART Score Troponin: Troponin T 0.026 ng/mL (0.00-0.029) 07/20/20 19:27 Results - Labs CBC & Chem 7: 07/28/20 10:30 07/28/20 04:40 Labs: Laboratory Last Values WBC 17.1 K/mm3 (4.5-11.0) H 07/28/20 01:45 RBC 2.79 M/mm3 (3.65-5.03) L 07/28/20 01:45 Hgb 9.2 gm/dl (10.1-14.3) L 07/28/20 01:45 Hct 28.2 % (30.3-42.9) L 07/28/20 01:45 MCV 101 fl (79-97) H 07/28/20 01:45 MCH 33 pg (28-32) H 07/28/20 01:45 MCHC 33 % (30-34) 07/28/20 01:45 RDW 13.5 % (13.2-15.2) 07/28/20 01:45 Plt Count 102 K/mm3 (140-440) L 07/28/20 01:45 Lymph % (Auto) 9.5 % (13.4-35.0) L 07/25/20 05:15 [place] % (Auto) 2.0 % (0.0-7.3) 07/25/20 05:15 Eos % (Auto) 0.2 % (0.0-4.3) 07/25/20 05:15 Baso % (Auto) 0.1 % (0.0-1.8) 07/25/20 05:15 Lymph # (Auto) 1.1 K/mm3 (1.2-5.4) L 07/25/20 05:15 [place] # (Auto) 0.2 K/mm3 (0.0-0.8) 07/25/20 05:15 Eos # (Auto) 0.0 K/mm3 (0.0-0.4) 07/25/20 05:15 Baso # (Auto) 0.0 K/mm3 (0.0-0.1) 07/25/20 05:15 Add Manual Diff Complete 07/28/20 01:45 Total Counted 100 07/28/20 01:45 Seg Neutrophils % [employer]er 07/28/20 01:45 Seg Neuts % (Manual) 95.0 % (40.0-70.0) H 07/28/20 01:45 Band Neutrophils % 32.0 % 07/21/20 04:00 Lymphocytes % (Manual) 2.0 % (13.4-35.0) L 07/28/20 01:45 Monocytes % (Manual) 3.0 % (0.0-7.3) 07/28/20 01:45 Nucleated RBC % Not Reportable 07/28/20 01:45 Seg Neutrophils # 10.6 K/mm3 (1.8-7.7) H 07/25/20 05:15 Seg Neutrophils # Man 16.2 K/mm3 (1.8-7.7) H 07/28/20 01:45 Band Neutrophils # 0.0 K/mm3 07/28/20 01:45 Lymphocytes # (Manual) 0.3 K/mm3 (1.2-5.4) L 07/28/20 01:45 Abs React Lymphs (Man) 0.0 K/mm3 07/28/20 01:45 Monocytes # (Manual) 0.5 K/mm3 (0.0-0.8) 07/28/20 01:45 Eosinophils # (Manual) 0.0 K/mm3 (0.0-0.4) 07/28/20 01:45 Basophils # (Manual) 0.0 K/mm3 (0.0-0.1) 07/28/20 01:45 Metamyelocytes # 0.0 K/mm3 07/28/20 01:45 Myelocytes # 0.0 K/mm3 07/28/20 01:45 Promyelocytes # 0.0 K/mm3 07/28/20 01:45 Blast Cells # 0.0 K/mm3 07/28/20 01:45 WBC Morphology Not Reportable 07/28/20 01:45 Hypersegmented Neuts Not Reportable 07/28/20 01:45 Hyposegmented Neuts Not Reportable 07/28/20 01:45 Hypogranular Neuts Not Reportable 07/28/20 01:45 Smudge Cells Not Reportable 07/28/20 01:45 Toxic Granulation Not Reportable 07/28/20 01:45 Toxic Vacuolation Not Reportable 07/28/20 01:45 Dohle Bodies Not Reportable 07/28/20 01:45 Pelger-Huet Anomaly Not Reportable 07/28/20 01:45 Elia Rods Not Reportable 07/28/20 01:45 Platelet Estimate Consistent w auto 07/28/20 01:45 Clumped Platelets Not Reportable 07/28/20 01:45 Plt Clumps, EDTA Not Reportable 07/28/20 01:45 Large Platelets Not Reportable 07/28/20 01:45 Giant Platelets Not Reportable 07/28/20 01:45 Platelet Satelliting Not Reportable 07/28/20 01:45 Plt Morphology Comment Not Reportable 07/28/20 01:45 RBC Morphology Not Reportable 07/28/20 01:45 Dimorphic RBCs Not Reportable 07/28/20 01:45 Polychromasia Few 07/28/20 01:45 Hypochromasia Not Reportable 07/28/20 01:45 Poikilocytosis Not Reportable 07/28/20 01:45 Anisocytosis Few 07/28/20 01:45 Microcytosis Not Reportable 07/28/20 01:45 Macrocytosis Not Reportable 07/28/20 01:45 Spherocytes Not Reportable 07/28/20 01:45 Pappenheimer Bodies Not Reportable 07/28/20 01:45 Sickle Cells Not Reportable 07/28/20 01:45 Target Cells Not Reportable 07/28/20 01:45 Tear Drop Cells Not Reportable 07/28/20 01:45 Ovalocytes Not Reportable 07/28/20 01:45 Helmet Cells Not Reportable 07/28/20 01:45 [place] Bodies Not Reportable 07/28/20 01:45 Odin Rings Not Reportable 07/28/20 01:45 Lorri Cells Not Reportable 07/28/20 01:45 Bite Cells Not Reportable 07/28/20 01:45 Crenated Cell Not Reportable 07/28/20 01:45 Elliptocytes Not Reportable 07/28/20 01:45 Acanthocytes (Spur) Not Reportable 07/28/20 01:45 Rouleaux Not Reportable 07/28/20 01:45 Hemoglobin C Crystals Not Reportable 07/28/20 01:45 Schistocytes Not Reportable 07/28/20 01:45 Malaria parasites Not Reportable 07/28/20 01:45 Junior Bodies Not Reportable 07/28/20 01:45 Hem Pathologist Commnt No 07/28/20 01:45 PT 20.1 Sec. (12.2-14.9) H 07/20/20 19:32 INR 1.72 (0.87-1.13) H 07/20/20 19:32 APTT 33.7 Sec. (24.2-36.6) 07/20/20 19:32 D-Dimer 2098.49 ng/mlDDU (0-234) H 07/20/20 21:59 ABG pH 7.475 (7.320-7.450) H 07/28/20 06:06 POC ABG pCO2 42.7 mmHg (32.0-48.0) 07/28/20 06:06 POC ABG pO2 99.1 mmHg (83-108) 07/28/20 06:06 POC ABG HCO3 30.7 07/28/20 06:06 ABG O2 Saturation 97.9 (0-100) 07/28/20 06:06 POC ABG Base Excess 6.5 07/28/20 06:06 ABG Hemoglobin 10.7 (12.0-17.5) L 07/28/20 06:06 ABG Oxyhemoglobin 97 (94-98) 07/28/20 06:06 ABG Methemoglobin 0.3 (0.0-1.5) 07/28/20 06:06 ABG Sodium 140.7 mmol/L (136.0-145.0) 07/28/20 06:06 ABG Potassium 3.4 mmol/L (3.40-4.50) 07/28/20 06:06 ABG Chloride 104.0 mmol/L (98-107) 07/28/20 06:06 ABG Glucose 146 mg/dL (65-95) H 07/28/20 06:06 Carboxyhemoglobin 0.6 (0.5-1.5) 07/28/20 06:06 FiO2 % 50 07/28/20 06:06 Sodium 147 mmol/L (137-145) H 07/28/20 01:45 Potassium 4.0 mmol/L (3.6-5.0) D 07/28/20 01:45 Chloride 106.3 mmol/L (98-107) 07/28/20 01:45 Carbon Dioxide 33 mmol/L (22-30) H 07/28/20 01:45 Anion Gap 12 mmol/L 07/28/20 01:45 BUN 22 mg/dL (7-17) H 07/28/20 01:45 Creatinine 0.9 mg/dL (0.6-1.2) D 07/28/20 01:45 Estimated GFR > 60 ml/min 07/28/20 01:45 BUN/Creatinine Ratio 24 % 07/28/20 01:45 Glucose 190 mg/dL (65-100) H 07/28/20 01:45 POC Glucose 159 mg/dL (70-105) H 07/28/20 05:20 Lactic Acid 1.90 mmol/L (0.7-2.0) 07/20/20 21:59 Calcium 6.9 mg/dL (8.4-10.2) L 07/28/20 01:45 Phosphorus 2.70 mg/dL (2.5-4.5) 07/27/20 04:00 Magnesium 1.30 mg/dL (1.7-2.3) L 07/27/20 04:00 Ferritin 1648.0 ng/mL (10.0-200.0) H 07/20/20 21:59 Total Bilirubin 0.20 mg/dL (0.1-1.2) 07/28/20 01:45 Direct Bilirubin < 0.2 mg/dL (0-0.2) 07/23/20 17:33 Indirect Bilirubin 0.3 mg/dL 07/23/20 17:33 AST 26 units/L (5-40) 07/28/20 01:45 ALT 36 units/L (7-56) 07/28/20 01:45 Alkaline Phosphatase 80 units/L (35-129) 07/28/20 01:45 Ammonia 39.0 umol/L (25-60) 07/23/20 17:33 Lactate Dehydrogenase 732 units/L (91-180) H 07/20/20 21:59 Total Creatine Kinase 72049 units/L (30-135) H 07/21/20 08:20 CK-MB (CK-2) 289.0 ng/mL (0.0-4.0) H 07/20/20 19:27 CK-MB (CK-2) Rel Index 2.0 (0-4) 07/20/20 19:27 Troponin T 0.026 ng/mL (0.00-0.029) 07/20/20 19:27 C-Reactive Protein 37.90 mg/dL (0.00-1.30) H 07/20/20 21:59 Total Protein 4.6 g/dL (6.3-8.2) L 07/28/20 01:45 Albumin 2.2 g/dL (3.9-5) L 07/28/20 01:45 Albumin/Globulin Ratio 0.9 % 07/28/20 01:45 Prealbumin 0.079 g/L (0.200-0.400) L 07/27/20 18:35 Triglycerides 109 mg/dL (2-149) 07/27/20 04:00 Vitamin B12 1123 pg/mL (211-911) H 07/27/20 18:35 Folate 18.55 ng/mL (7.3-26.0) 07/27/20 18:35 Procalcitonin 40.67 ng/mL (<0.15) 07/20/20 21:59 TSH 1.130 mlU/mL (0.270-4.200) 07/27/20 18:35 Free T4 0.87 ng/dL (0.76-1.46) 07/20/20 19:27 Arterial Blood Glucose 146 mg/dL (65-95) H 07/28/20 06:06 Arterial Blood Ionized Calcium 4.2 mg/dL (4.6-5.3) L 07/28/20 06:06 Urine Color Yellow (Yellow) 07/21/20 Unknown Urine Turbidity Cloudy (Clear) 07/21/20 Unknown Urine pH 5.0 (5.0-7.0) 07/21/20 Unknown Ur Specific [place] 1.013 (1.003-1.030) 07/21/20 Unknown Urine Protein 30 mg/dl mg/dL (Negative) 07/21/20 Unknown Urine Glucose (UA) Neg mg/dL (Negative) 07/21/20 Unknown Urine Ketones Neg mg/dL (Negative) 07/21/20 Unknown Urine Blood Lg (Negative) 07/21/20 Unknown Urine Nitrite Neg (Negative) 07/21/20 Unknown Urine Bilirubin Neg (Negative) 07/21/20 Unknown Urine Urobilinogen < 2.0 mg/dL (<2.0) 07/21/20 Unknown Ur Leukocyte Esterase Sm (Negative) 07/21/20 Unknown Urine WBC (Auto) 28.0 /HPF (0.0-6.0) H 07/21/20 Unknown Urine RBC (Auto) 89.0 /HPF (0.0-6.0) 07/21/20 Unknown U Epithel Cells (Auto) 1.0 /HPF (0-13.0) 07/21/20 Unknown Urine WBC Clumps 2+ /HPF 07/21/20 Unknown Hyaline Casts 9 /LPF 07/21/20 Unknown Urine Mucus Few /HPF 07/21/20 Unknown Urine Yeast (Budding) 3+ /HPF 07/20/20 19:52 Urine Eosinophils None seen (None Seen) 07/21/20 Unknown Urine Creatinine 40.4 mg/dL (0.1-20.0) H 07/26/20 07:14 Urine Sodium 10 mmol/L 07/21/20 Unknown Urine Potassium 32.12 mmol/L 07/26/20 07:14 Urine Chloride 119.0 mmolL (110-250) 07/26/20 07:14 Random Vancomycin 4.7 ug/mL (0-40.0) 07/22/20 06:27 Urine Opiates Screen Positive 07/20/20 19:52 Urine Methadone Screen Negative 07/20/20 19:52 Ur Barbiturates Screen Negative 07/20/20 19:52 Ur Phencyclidine Scrn Negative 07/20/20 19:52 Ur Amphetamines Screen Negative 07/20/20 19:52 U Benzodiazepines Scrn Positive 07/20/20 19:52 Urine Cocaine Screen Negative 07/20/20 19:52 U Marijuana (THC) Screen Negative 07/20/20 19:52 Drugs of Abuse Note Disclamer 07/20/20 19:52 Proteinase 3 (PR3) Ab <1.0 AI (<1.0) 07/21/20 09:56 Myeloperoxidase Ab <1.0 AI (<1.0) 07/21/20 09:56 Complement C3 106 mg/dL (83-193) 07/21/20 09:56 Complement C4 21 mg/dL (15-57) 07/21/20 09:56 Coronavirus (PCR) Negative (Negative) 07/21/20 08:20 Hepatitis A IgM Ab Non-reactive (NonReactive) 07/23/20 17:33 Hep Bs Antigen Non-reactive (Negative) 07/23/20 17:33 Hep B Core IgM Ab Non-reactive (NonReactive) 07/23/20 17:33 Hepatitis C Antibody Reactive (NonReactive) A 07/23/20 17:33 Blood Type O POSITIVE 07/20/20 23:15 Antibody Screen Negative 07/20/20 23:15 Russell/IV: Voiding Method Indwelling Catheter Active Medications - Current Medications Current Medications: Generic Name Dose Route Start Last Admin Trade Name Freq PRN Reason Stop Dose Admin Acetaminophen 650 mg 07/20/20 22:51 Acetaminophen 325 Mg/10.15 Ml Oral Liqd Unit Dose FEEDTUBE Q6H PRN Pain MILD(1-3)/Fever >100.5/HESS Albuterol/Ipratropium 1 ampul 07/20/20 23:00 07/28/20 07:43 Ipratropium/Albuterol Sulfate 3 Ml Ampul.Neb IH 1 ampul Q6HRT HONEY Administration Alprazolam 2 mg 07/24/20 22:00 07/28/20 05:23 Alprazolam 1 Mg Tab PO 2 mg Q8HR HONEY Administration Lipase/Protease/Amylase 1 each 07/24/20 18:26 Lipase 10,500/Protease 25,000/Amylase 43,750 (Units) Dr [place] FEEDTUBE PRN PRN For Clogged Feeding Tube Dextrose 50 ml 07/26/20 10:10 Dextrose 50% In Water (25gm) 50 Ml Syringe IV Q30MIN PRN Hypoglycemia Protocol Famotidine 20 mg 07/28/20 22:00 Famotidine 20 Mg Tab PO BID HONEY Fentanyl 50 mcg 07/28/20 05:43 07/28/20 06:15 Fentanyl 100 Mcg/2 Ml Inj IV 50 mcg Q10MIN PRN Administration ANALGESIA Folic Acid 1 mg 07/29/20 10:00 Folic Acid 1 Mg Tab PO DAILY [facility] Hydralazine HCl 10 mg 07/22/20 23:25 07/27/20 23:08 Hydralazine 20 Mg/1 Ml Inj IV 10 mg Q6H PRN Administration Hypertension Hydrophilic Ointment 1 applic 07/28/20 05:43 Lip Therapy Vaseline TP Q2HR PRN Dry Lips Folic Acid 1 mg/ Sodium 50.2 mls @ 200.8 mls/hr 07/23/20 18:00 07/28/20 09:47 Chloride IV 07/28/20 17:59 200 mls/hr QDAY HONEY Administration Thiamine HCl 100 mg/ Sodium 51 mls @ 100 mls/hr 07/23/20 18:00 07/28/20 09:47 Chloride IV 07/28/20 17:59 100 mls/hr QDAY HONEY Administration Amino Acids/Electrolytes/Dextrose 1,800 mls @ 75 mls/hr 07/27/20 20:00 06/29 05/19 20:31 Tpn Adult IV 07/28/20 19:59 75 mls/hr DAILY@2000 HONEY Administration Protocol Norepinephrine 4 mg in 250 mls @ 7.5 mls/hr 07/28/20 02:00 07/28/20 06:46 Levophed Drip 4 Mg/Ns 250 Ml IV 6 mcg/min TITR HONEY 22.5 mls/hr Titration Protocol 2 MCG/MIN Fentanyl Citrate 2,000 mcg in 100 mls @ 2.65 mls/hr 07/28/20 06:00 07/28/20 06:26 Fentanyl Drip Premix IV 1 mcg/kg/hr TITR HONEY 2.65 mls/hr Administration Protocol 1 MCG/KG/HR Lactated Ringer's 1,000 mls @ 999 mls/hr 07/28/20 10:30 Lactated Ringers IV 07/28/20 12:29 Q1H HONEY Insulin Human Regular 0 units 07/26/20 12:00 07/28/20 06:42 Insulin Regular, Human 100 Units/1 Ml SUB-Q 2 units Q6HR [facility] Administration Protocol Metoclopramide HCl 5 mg 07/20/20 22:51 Metoclopramide 10 Mg/2 Ml Inj IV Q6H PRN Nausea And Vomiting Multi-Ingred Cream/Lotion/Oil/Oint 1 applic 07/28/20 05:43 Mineral Oil/Petrolatum, White Ophth Oint 3.5 Gm OU Q4HR PRN Dry Eye(s) Simple Syrup 15 ml 07/24/20 18:26 Simple Syrup 15 Ml FEEDTUBE PRN PRN Hypoglycemia Simple Syrup 30 ml 07/24/20 18:26 Simple Syrup 15 Ml FEEDTUBE PRN PRN Hypoglycemia Sodium Bicarbonate 325 mg 07/24/20 18:26 Sodium Bicarbonate 325 Mg Tab FEEDTUBE PRN PRN For Clogged Feeding Tube Sodium Chloride 10 ml 07/21/20 10:00 07/28/20 09:47 Sodium Chloride 0.9% 10 Ml Flush Syringe IV 10 ml BID HONEY Administration Sodium Chloride 10 ml 07/20/20 22:51 07/25/20 05:01 Sodium Chloride 0.9% 10 Ml Flush Syringe IV 10 ml PRN PRN Administration LINE FLUSH Thiamine HCl 100 mg 07/29/20 10:00 Thiamine 100 Mg Tab PO QDAY [facility] Nutrition/Malnutrition Assess - Dietary Evaluation Nutrition/Malnutrition Findings: Nutrition Notes Start: 07/22/20 12:24 Freq: Status: Active Protocol: Document 07/27/20 11:12 [facility] (Rec: 07/27/20 11:21 [facility] [id number]) Nutrition Notes Initial or Follow up Reassessment Current Diagnosis Acute Kidney Injury,Sepsis, Hypertension Other Pertinent Diagnosis Hep C, AMS, UTI, Encephalopathy, dehydration Current Diet CPN at 75ml/hr Labs/Tests K 3.2 CO2 - 37 Mg 1.3 Pertinent Medications Mag sulfate x 1 dose 20mEq KCl at 100ml/hr x 3 bags Height 5 ft 3 in Weight 53 kg [place] Flat Body Weight (kg) 52.27 BMI 20.7 Weight Status Underweight Subjective/Other Information Day 1 CPN. Percent of energy/protein needs met: 74% energy 100% pro Burn Absent Trauma Absent #1 Nutrition Diagnosis Inadequate oral intake Diagnosis Progress(for reassessment Continues documentation) Is patient on ventilator? No Is Patient Ambulatory and/or Out of Bed No REE-([facility]-confined to bed) 1258.560 Kcal/Kg value to use for calculation 30 Approximate Energy Requirements Using 1590 kcal/Kg Calculation Used for Recommendations Kcal/kg Additional Notes Pro needs 1.2-2g/k-106g/ day Fluid needs 1ml/kcal Nutrition Intervention Nutrition Support: Continue CPN at 75ml/hr: MVI, 80mEq K, 60mEq Na, 16mEq Mg, 2mEq Ca, 20mmol Phos, 100% chloride/0% acetate. Osmolality: 1028. (Pt already receiving thiamine ) Kcal 929 Protein (gm) 75 Carbohydrates (gm) 185 Fat (gm) 0 Fluid (mL) 1,800 Fiber (gm) 0 Goal #1 CPN to meet at nutrient needs as best possible Follow-Up By: 07/28/20 Additional Comments Labs in am: BMP, Mg, Phos
[2020-07-28 11:30] LABS: Blood Urea Nitrogen 24 mg/dL (7-17); Calcium 7.6 mg/dL (8.4-10.2); Hemolysis Index 28
[2020-07-28 11:34] LABS: BUN/Creatinine Ratio 60
[2020-07-28] MEDS: LACTATED RINGERS 1,000 ML IV SCH ×2 (11:37→12:45)
[2020-07-28] MEDS ORDERED: VANCOMYCIN 750 MG in SODIUM CHLORIDE 0.9% 500 ML 500 ML IV ONE (12:01)
--- NOTE | 2020-07-28 12:01 | Progress Note ---
Assessment and Plan Cultures: 07/21/2020 COVID-19 PCR: Negative Hepatitis C antibody: Reactive 07/20/2020 blood culture: No growth 07/20/2020 urine culture: Klebsiella pneumoniae A/P: 65-year-old female with hepatitis C, hypertension, migraines admitted to the hospital with altered mental status, hypothermic, septic: #S/P cardiorespiratory arrest 07/27/2020 #Sepsis: Likely secondary to UTI. UA with significant pyuria. Chest x-ray on admission revealed some interstitial edema, no dense air bronchograms as such. #Acute encephalopathy: Likely metabolic, initially had severe hypernatremia. Neurology consulted. #DOREEN: Resolved #Acute resp failure: now on the vent. #Chronic hepatitis C: Antibody positive. Treatment status unknown. Can be worked up as an outpatient. Recs: - leucocytosis worse, likely following CODE, probably reactive - will get ET cultures, restart empiric abx: ceftriaxone + vancomycin - overall, poor prognosis. Agree with DNR status Fabiano Sanchez MD, FACP [facility] ([facility]) O: [phone] F: [phone] Subjective Date of service: 07/28/20 Interval history: No fever. Arrested last night requiring ACLS, now intubated, on the vent. On pressors. Objective - Exam Narrative Exam: Physical Exam: Constitutional: intubated, on the vent Head, Ears, Nose: Normocephalic, atraumatic. External ears, nose normal Eyes: Conjunctivae/corneas clear. No icterus. No ptosis. Neck:intubated Oral: intubated Cardiovascular: S1, S2 normal. Respiratory: AE fair b/l GI: Soft, non-tender; bowel sounds normal. No peritoneal signs Musculoskeletal: No pedal edema, no cyanosis. Skin: No rash or abscess Hem/Lymphatic: No palpable cervical or supraclavicular nodes. No lymphangitis Psych: on vent Neurological: on vent. - Constitutional Vitals: Vital Signs Temp Pulse Resp BP Pulse Ox 97 F L 80 26 H 102/54 96 07/28/20 08:00 07/28/20 11:15 07/28/20 08:30 07/28/20 11:15 07/28/20 11:15 Temperature -Last 24 Hours Temperature 97 F Temperature 97.0 F Temperature 98.7 F Temperature 97.9 F - Labs CBC & Chem 7: 07/28/20 10:30 07/28/20 04:40 Labs: Abnormal lab results 07/27/20 07/27/20 07/27/20 Range/Units 11:33 16:11 18:35 WBC (4.5-11.0) K/mm3 RBC (3.65-5.03) M/mm3 Hgb (10.1-14.3) gm/dl Hct (30.3-42.9) % MCV (79-97) fl MCH (28-32) pg Plt Count (140-440) K/mm3 Seg Neuts % (Manual) (40.0-70.0) % Lymphocytes % (Manual) (13.4-35.0) % Seg Neutrophils # Man (1.8-7.7) K/mm3 Lymphocytes # (Manual) (1.2-5.4) K/mm3 ABG pH (7.320-7.450) POC ABG pO2 (83-108) mmHg ABG Hemoglobin (12.0-17.5) ABG Glucose (65-95) mg/dL Sodium (137-145) mmol/L Carbon Dioxide (22-30) mmol/L BUN (7-17) mg/dL Creatinine (0.6-1.2) mg/dL Glucose (65-100) mg/dL POC Glucose 125 H 121 H (70-105) mg/dL Calcium (8.4-10.2) mg/dL Total Creatine Kinase (30-135) units/L Total Protein (6.3-8.2) g/dL Albumin (3.9-5) g/dL Prealbumin (0.200-0.400) g/L Vitamin B12 1123 H (211-911) pg/mL Arterial Blood Glucose (65-95) mg/dL Arterial Blood Ionized Calcium (4.6-5.3) mg/dL 07/27/20 07/27/20 07/28/20 Range/Units 18:35 23:46 01:05 WBC (4.5-11.0) K/mm3 RBC (3.65-5.03) M/mm3 Hgb (10.1-14.3) gm/dl Hct (30.3-42.9) % MCV (79-97) fl MCH (28-32) pg Plt Count (140-440) K/mm3 Seg Neuts % (Manual) (40.0-70.0) % Lymphocytes % (Manual) (13.4-35.0) % Seg Neutrophils # Man (1.8-7.7) K/mm3 Lymphocytes # (Manual) (1.2-5.4) K/mm3 ABG pH (7.320-7.450) POC ABG pO2 (83-108) mmHg ABG Hemoglobin (12.0-17.5) ABG Glucose (65-95) mg/dL Sodium (137-145) mmol/L Carbon Dioxide (22-30) mmol/L BUN (7-17) mg/dL Creatinine (0.6-1.2) mg/dL Glucose (65-100) mg/dL POC Glucose 161 H 188 H (70-105) mg/dL Calcium (8.4-10.2) mg/dL Total Creatine Kinase (30-135) units/L Total Protein (6.3-8.2) g/dL Albumin (3.9-5) g/dL Prealbumin 0.079 L (0.200-0.400) g/L Vitamin B12 (211-911) pg/mL Arterial Blood Glucose (65-95) mg/dL Arterial Blood Ionized Calcium (4.6-5.3) mg/dL 07/28/20 07/28/20 07/28/20 Range/Units 01:41 01:45 01:45 WBC 17.1 H (4.5-11.0) K/mm3 RBC 2.79 L (3.65-5.03) M/mm3 Hgb 9.2 L (10.1-14.3) gm/dl Hct 28.2 L (30.3-42.9) % MCV 101 H (79-97) fl MCH 33 H (28-32) pg Plt Count 102 L (140-440) K/mm3 Seg Neuts % (Manual) 95.0 H (40.0-70.0) % Lymphocytes % (Manual) 2.0 L (13.4-35.0) % Seg Neutrophils # Man 16.2 H (1.8-7.7) K/mm3 Lymphocytes # (Manual) 0.3 L (1.2-5.4) K/mm3 ABG pH (7.320-7.450) POC ABG pO2 76.7 L (83-108) mmHg ABG Hemoglobin 9.5 L (12.0-17.5) ABG Glucose 179 H (65-95) mg/dL Sodium 147 H (137-145) mmol/L Carbon Dioxide 33 H (22-30) mmol/L BUN 22 H (7-17) mg/dL Creatinine (0.6-1.2) mg/dL Glucose 190 H (65-100) mg/dL POC Glucose (70-105) mg/dL Calcium 6.9 L (8.4-10.2) mg/dL Total Creatine Kinase (30-135) units/L Total Protein 4.6 L (6.3-8.2) g/dL Albumin 2.2 L (3.9-5) g/dL Prealbumin (0.200-0.400) g/L Vitamin B12 (211-911) pg/mL Arterial Blood Glucose 179 H (65-95) mg/dL Arterial Blood Ionized Calcium 4.2 L (4.6-5.3) mg/dL 07/28/20 07/28/20 07/28/20 Range/Units 04:40 05:20 06:06 WBC (4.5-11.0) K/mm3 RBC (3.65-5.03) M/mm3 Hgb (10.1-14.3) gm/dl Hct (30.3-42.9) % MCV (79-97) fl MCH (28-32) pg Plt Count (140-440) K/mm3 Seg Neuts % (Manual) (40.0-70.0) % Lymphocytes % (Manual) (13.4-35.0) % Seg Neutrophils # Man (1.8-7.7) K/mm3 Lymphocytes # (Manual) (1.2-5.4) K/mm3 ABG pH 7.475 H (7.320-7.450) POC ABG pO2 (83-108) mmHg ABG Hemoglobin 10.7 L (12.0-17.5) ABG Glucose 146 H (65-95) mg/dL Sodium (137-145) mmol/L Carbon Dioxide 31 H (22-30) mmol/L BUN 24 H (7-17) mg/dL Creatinine 0.4 L D (0.6-1.2) mg/dL Glucose 106 H (65-100) mg/dL POC Glucose 159 H (70-105) mg/dL Calcium 7.6 L (8.4-10.2) mg/dL Total Creatine Kinase 227 H (30-135) units/L Total Protein (6.3-8.2) g/dL Albumin (3.9-5) g/dL Prealbumin (0.200-0.400) g/L Vitamin B12 (211-911) pg/mL Arterial Blood Glucose 146 H (65-95) mg/dL Arterial Blood Ionized Calcium 4.2 L (4.6-5.3) mg/dL 07/28/20 Range/Units 10:30 WBC 17.0 H (4.5-11.0) K/mm3 RBC 3.16 L (3.65-5.03) M/mm3 Hgb (10.1-14.3) gm/dl Hct (30.3-42.9) % MCV 101 H (79-97) fl MCH 34 H (28-32) pg Plt Count 124 L (140-440) K/mm3 Seg Neuts % (Manual) (40.0-70.0) % Lymphocytes % (Manual) (13.4-35.0) % Seg Neutrophils # Man (1.8-7.7) K/mm3 Lymphocytes # (Manual) (1.2-5.4) K/mm3 ABG pH (7.320-7.450) POC ABG pO2 (83-108) mmHg ABG Hemoglobin (12.0-17.5) ABG Glucose (65-95) mg/dL Sodium (137-145) mmol/L Carbon Dioxide (22-30) mmol/L BUN (7-17) mg/dL Creatinine (0.6-1.2) mg/dL Glucose (65-100) mg/dL POC Glucose (70-105) mg/dL Calcium (8.4-10.2) mg/dL Total Creatine Kinase (30-135) units/L Total Protein (6.3-8.2) g/dL Albumin (3.9-5) g/dL Prealbumin (0.200-0.400) g/L Vitamin B12 (211-911) pg/mL Arterial Blood Glucose (65-95) mg/dL Arterial Blood Ionized Calcium (4.6-5.3) mg/dL - Imaging and cardiology Chest x-ray: report reviewed, image reviewed (ET tube +, interstitial changes +)
[2020-07-28] MEDS ORDERED: VANCOMYCIN PHARMACY TO DOSE IV SCH (13:00)
[2020-07-28] MEDS ORDERED: VANCOMYCIN/NS 1 GM/250 ML 1 GM/250 ML BAG IV ONE (15:00)
--- NOTE | 2020-07-28 15:43 | Progress Note ---
Assessment and Plan Impression: * Nonoliguric DOREEN secondary to multifactorial etiologies: prerenal component due to volume depletion vs ATN (sepsis) * Acute hypoxic respiratory failure * Sepsis * Klebsiella UTI * Acute encephelopathy * Uremia * Hypernatremia: free water deficit, now improved * Hyperkalemia->hypokalemia now: likely nutritional * Metabolic Alkalosis: likely contracted Plan: * Renal function improved with volume resuscitation. Peaked with creatinine 7.7->0.5->0.4 this AM over past week. No acute indication for renal replacement therapy at this time. Continue conservative management. Creatinine now abnormally low, likely due to poor nutrition * Continue K repletion via TPN * Checked urine chloride for alkalosis, is higher than expected, still feel that patient appears more contracted but will follow * ?Possible withdrawal - note order for Ativan prn, on CIPR protocol * Abx per primary team * Pressors prn to maintain MAP>65 * Avoid potential nephrotoxins * Dose medications for renal function * AM labs Subjective Date of service: 07/28/20 Interval history: Intubated overnight, started on TPN. On Levophed 6mcg Objective - Exam Narrative Exam: General appearance: intubated, sedated EENT: ATNC Respiratory: Present: Ronchi Cardiology: regular, S1S2 Gastrointestinal: normal, no tenderness, no distended Integumentary: no rash, warm and dry Neurologic: other (agitated) Musculoskeletal: other (no edema) - Vital Signs Vital signs: Vital Signs - 12hr 07/28/20 07/28/20 07/28/20 03:50 03:54 04:00 Temperature Pulse Rate 95 H 94 H 93 H Pulse Rate [ Bilateral Throughout] Pulse Rate [ 95 H From Monitor] Respiratory 28 H 20 Rate Respiratory Rate [Bilateral Throughout] Blood Pressure 106/61 102/60 107/61 O2 Sat by Pulse 99 99 99 Oximetry 07/28/20 07/28/20 07/28/20 04:10 04:20 04:30 Temperature Pulse Rate 96 H 95 H 93 H Pulse Rate [ Bilateral Throughout] Pulse Rate [ From Monitor] Respiratory 21 Rate Respiratory Rate [Bilateral Throughout] Blood Pressure 109/59 98/58 104/60 O2 Sat by Pulse 99 99 99 Oximetry 07/28/20 07/28/20 07/28/20 04:40 04:50 05:00 Temperature Pulse Rate 95 H 90 95 H Pulse Rate [ Bilateral Throughout] Pulse Rate [ From Monitor] Respiratory 16 18 17 Rate Respiratory Rate [Bilateral Throughout] Blood Pressure 111/56 102/60 105/61 O2 Sat by Pulse 99 99 99 Oximetry 07/28/20 07/28/20 07/28/20 05:10 05:20 05:30 Temperature Pulse Rate 91 H 91 H 91 H Pulse Rate [ Bilateral Throughout] Pulse Rate [ From Monitor] Respiratory 21 18 26 H Rate Respiratory Rate [Bilateral Throughout] Blood Pressure 106/61 103/58 97/54 O2 Sat by Pulse 99 99 99 Oximetry 07/28/20 07/28/20 07/28/20 05:40 05:50 06:00 Temperature Pulse Rate 90 89 91 H Pulse Rate [ Bilateral Throughout] Pulse Rate [ From Monitor] Respiratory 34 H 30 H 22 Rate Respiratory Rate [Bilateral Throughout] Blood Pressure 99/58 106/51 99/52 O2 Sat by Pulse 99 99 99 Oximetry 07/28/20 07/28/20 07/28/20 06:10 06:15 06:20 Temperature Pulse Rate 82 Pulse Rate [ Bilateral Throughout] Pulse Rate [ From Monitor] Respiratory 38 H 22 Rate Respiratory Rate [Bilateral Throughout] Blood Pressure 101/65 83/44 O2 Sat by Pulse 99 98 Oximetry 07/28/20 07/28/20 07/28/20 06:30 06:40 07:00 Temperature Pulse Rate 79 79 70 Pulse Rate [ Bilateral Throughout] Pulse Rate [ From Monitor] Respiratory 29 H 22 21 Rate Respiratory Rate [Bilateral Throughout] Blood Pressure 88/47 90/47 96/53 O2 Sat by Pulse 99 99 100 Oximetry 07/28/20 07/28/20 07/28/20 07:30 07:43 08:00 Temperature 97 F L Pulse Rate 73 69 76 Pulse Rate [ 96 H Bilateral Throughout] Pulse Rate [ From Monitor] Respiratory 28 H 15 Rate Respiratory 25 H Rate [Bilateral Throughout] Blood Pressure 103/58 100/55 110/58 O2 Sat by Pulse 99 98 93 Oximetry 07/28/20 07/28/20 07/28/20 08:30 09:00 09:30 Temperature Pulse Rate 76 74 77 Pulse Rate [ Bilateral Throughout] Pulse Rate [ From Monitor] Respiratory 26 H 26 H 22 Rate Respiratory Rate [Bilateral Throughout] Blood Pressure 96/53 102/57 105/56 O2 Sat by Pulse 95 96 96 Oximetry 07/28/20 07/28/20 07/28/20 10:00 10:30 11:00 Temperature Pulse Rate 77 79 80 Pulse Rate [ Bilateral Throughout] Pulse Rate [ From Monitor] Respiratory 24 19 25 H Rate Respiratory Rate [Bilateral Throughout] Blood Pressure 126/57 126/60 105/54 O2 Sat by Pulse 96 96 96 Oximetry 07/28/20 07/28/20 07/28/20 11:15 11:30 12:00 Temperature 98.2 F Pulse Rate 80 79 77 Pulse Rate [ Bilateral Throughout] Pulse Rate [ From Monitor] Respiratory 26 H 22 Rate Respiratory Rate [Bilateral Throughout] Blood Pressure 102/54 119/57 125/62 O2 Sat by Pulse 96 98 99 Oximetry 07/28/20 07/28/20 15:06 15:08 Temperature Pulse Rate 97 H Pulse Rate [ 97 H Bilateral Throughout] Pulse Rate [ From Monitor] Respiratory Rate Respiratory 31 H Rate [Bilateral Throughout] Blood Pressure 124/67 O2 Sat by Pulse 97 Oximetry - Lab 07/28/20 10:30 07/28/20 04:40 Most recent lab results ABG pH 7.475 (7.320-7.450) H 07/28/20 06:06 ABG O2 Saturation 97.9 (0-100) 07/28/20 06:06 Calcium 7.6 mg/dL (8.4-10.2) L 07/28/20 04:40 Phosphorus 3.20 mg/dL (2.5-4.5) 07/28/20 04:40 Magnesium 1.90 mg/dL (1.7-2.3) 07/28/20 04:40 Urine Creatinine 40.4 mg/dL (0.1-20.0) H 07/26/20 07:14 Urine Sodium 10 mmol/L 07/21/20 Unknown Medications & Allergies - Medications Allergies/Adverse Reactions: Allergies Iodine and Iodide Containing Produc Adverse Reaction (Verified 10/26/18 10:10) Rash Home Medications: Home Medications Medication Instructions Recorded Confirmed Last Taken Type Ondansetron [Zofran TAB] 4 mg PO Q8HR PRN #15 tablet 07/17/17 Unknown Rx Ibuprofen [Motrin 600 MG tab] 600 mg PO Q8H PRN #30 tablet 01/18/18 Unknown Rx Sulfamethoxazole/Trimethoprim 1 each PO BID 10 Days #20 tablet 01/18/18 Unknown Rx [Bactrim DS TAB] cephALEXin [Keflex] 500 mg PO Q12HR #20 capsule 01/18/18 Unknown Rx Famotidine [Pepcid] 20 mg PO BID #10 tablet 05/17/18 Unknown Rx Mag Hydrox/Aluminum Hyd/Simeth 15 ml PO QID #1 oral.susp 05/17/18 Unknown Rx [Maalox Advanced Suspension] Ondansetron [Zofran ODT TAB] 8 mg PO Q12HR #20 tab.rapdis 05/17/18 Unknown Rx Acetaminophen/Codeine [Tylenol 1 tab PO Q6H PRN #12 tab 10/26/18 Unknown Rx /Codeine # 3 tab] Clindamycin [Clindamycin CAP] 300 mg PO Q8H #21 cap 10/26/18 Unknown Rx Esomeprazole Magnesium [NexIUM] 40 mg PO QDAY 20 Days #20 06/04/19 Unknown Rx capsule. ALPRAZolam [Xanax TAB] 2 mg PO Q8H 07/23/20 07/23/20 Unknown History Carisoprodol [Soma] 350 mg PO Q6H 07/23/20 07/23/20 Unknown History Ezetimibe [Zetia] 10 mg PO DAILY 07/23/20 07/23/20 Unknown History Gabapentin [Neurontin] 600 mg PO Q6H 07/23/20 07/23/20 Unknown History HYDROcodone/APAP 5-325 1 tab Q6H 07/23/20 07/23/20 Unknown History SUMAtriptan SUCCINATE [Imitrex] 100 mg PO Q2H PRN 07/23/20 07/23/20 Unknown History Active Medications: Generic Name Dose Route Start Last Admin Trade Name Freq PRN Reason Stop Dose Admin Acetaminophen 650 mg 07/20/20 22:51 Acetaminophen 325 Mg/10.15 Ml Oral Liqd Unit Dose FEEDTUBE Q6H PRN Pain MILD(1-3)/Fever >100.5/HESS Albuterol/Ipratropium 1 ampul 07/20/20 23:00 07/28/20 15:08 Ipratropium/Albuterol Sulfate 3 Ml Ampul.Neb IH 1 ampul Q6HRT HONEY Administration Alprazolam 2 mg 07/24/20 22:00 07/28/20 05:23 Alprazolam 1 Mg Tab PO 2 mg Q8HR HONEY Administration Lipase/Protease/Amylase 1 each 07/24/20 18:26 Lipase 10,500/Protease 25,000/Amylase 43,750 (Units) Dr Cap FEEDTUBE PRN PRN For Clogged Feeding Tube Dextrose 50 ml 07/26/20 10:10 Dextrose 50% In Water (25gm) 50 Ml Syringe IV Q30MIN PRN Hypoglycemia Protocol Famotidine 20 mg 07/28/20 22:00 Famotidine 20 Mg Tab PO BID HONEY Fentanyl 50 mcg 07/28/20 05:43 07/28/20 06:15 Fentanyl 100 Mcg/2 Ml Inj IV 50 mcg Q10MIN PRN Administration ANALGESIA Folic Acid 1 mg 07/29/20 10:00 Folic Acid 1 Mg Tab PO DAILY HONEY Hydralazine HCl 10 mg 07/22/20 23:25 07/27/20 23:08 Hydralazine 20 Mg/1 Ml Inj IV 10 mg Q6H PRN Administration Hypertension Hydrophilic Ointment 1 applic 07/28/20 05:43 Lip Therapy Vaseline TP Q2HR PRN Dry Lips Folic Acid 1 mg/ Sodium 50.2 mls @ 200.8 mls/hr 07/23/20 18:00 07/28/20 09:47 Chloride IV 07/28/20 17:59 200 mls/hr QDAY HONEY Administration Thiamine HCl 100 mg/ Sodium 51 mls @ 100 mls/hr 07/23/20 18:00 07/28/20 09:47 Chloride IV 07/28/20 17:59 100 mls/hr QDAY HONEY Administration Amino Acids/Electrolytes/Dextrose 1,800 mls @ 75 mls/hr 07/27/20 20:00 07/27/20 20:31 Tpn Adult IV 07/28/20 19:59 75 mls/hr DAILY@2000 HONEY Administration Protocol Norepinephrine 4 mg in 250 mls @ 7.5 mls/hr 07/28/20 02:00 07/28/20 10:30 Levophed Drip 4 Mg/Ns 250 Ml IV 5 mcg/min TITR HONEY 18.75 mls/hr Titration Protocol 2 MCG/MIN Fentanyl Citrate 2,000 mcg in 100 mls @ 2.65 mls/hr 07/28/20 06:00 07/28/20 12:09 Fentanyl Drip Premix IV 1 mcg/kg/hr TITR HONEY 2.65 mls/hr Titration Protocol 1 MCG/KG/HR Ceftriaxone Sodium 1 gm in 50 mls @ 100 mls/hr 07/28/20 13:00 Rocephin/Ns 1 Gm/50 Ml IV Q24HR [facility] Protocol Vancomycin HCl 1 gm in 250 mls @ 167.007 mls/hr 07/28/20 15:00 Vancomycin/Ns 1 Gm/250 Ml IV 07/28/20 16:29 ONCE ONE Vancomycin HCl 750 mg/ Sodium 265 mls @ 166.667 mls/hr 07/29/20 04:00 Chloride IV Q12H [facility] Amino Acids/Electrolytes/Dextrose 1,800 mls @ 75 mls/hr 07/28/20 20:00 Tpn Adult IV 07/29/20 19:59 DAILY@1999 [facility] Protocol Insulin Human Regular 0 units 07/26/20 12:00 07/28/20 06:42 Insulin Regular, Human 100 Units/1 Ml SUB-Q 2 units Q6HR [facility] Administration Protocol Metoclopramide HCl 5 mg 07/20/20 22:51 Metoclopramide 10 Mg/2 Ml Inj IV Q6H PRN Nausea And Vomiting Multi-Ingred Cream/Lotion/Oil/Oint 1 applic 07/28/20 05:43 Mineral Oil/Petrolatum, White Ophth Oint 3.5 Gm OU Q4HR PRN Dry Eye(s) Simple Syrup 15 ml 07/24/20 18:26 Simple Syrup 15 Ml FEEDTUBE PRN PRN Hypoglycemia Simple Syrup 30 ml 07/24/20 18:26 Simple Syrup 15 Ml FEEDTUBE PRN PRN Hypoglycemia Sodium Bicarbonate 325 mg 07/24/20 18:26 Sodium Bicarbonate 325 Mg Tab FEEDTUBE PRN PRN For Clogged Feeding Tube Sodium Chloride 10 ml 07/21/20 10:00 07/28/20 09:47 Sodium Chloride 0.9% 10 Ml Flush Syringe IV 10 ml BID HONEY Administration Sodium Chloride 10 ml 07/20/20 22:51 07/25/20 05:01 Sodium Chloride 0.9% 10 Ml Flush Syringe IV 10 ml PRN PRN Administration LINE FLUSH Thiamine HCl 100 mg 07/29/20 10:00 Thiamine 100 Mg Tab PO QDAY [facility]
[2020-07-28 16:13] LABS: Heparin-Induced Platelet Antib Negative (Negative); Unfractionated Heparin Negative (Negative)
[2020-07-28] MEDS: cefTRIAXone/NS 1 GM/50 ML 1 GM/50 ML BAG IV SCH (17:00)
--- NOTE | 2020-07-28 17:33 | Magnetic Resonance Report ---
MR brain wo con INDICATION / CLINICAL INFORMATION: 65 years Female; Hypoxic Injury or Stroke. TECHNIQUE: Multiplanar, multisequence MR images of the brain were obtained. Some motion artifact. COMPARISON: None available. FINDINGS: BRAIN / INTRACRANIAL CONTENTS: Increased FLAIR signal seen in the posterolateral temporal lobe on the right. Some of this area demonstrates increased signal on diffusion imaging with associated decrease d signal on ADC map. There some areas of increased T1 and decreased gradient echo T2 signal in this r egion, which could represent calcification or subtle areas of hemorrhage. While some component of isc hemia might be a consideration, other etiologies certainly cannot be excluded, such as encephalitis, meningitis, ADEM, or even infiltrative neoplastic process. Postcontrast imaging is highly recommended for further evaluation. Repeat CT of the head may be helpful for further evaluation, as well. Small subdural collections suggested bilaterally-right greater than left. Findings on the right follo ws CSF fluid and could represent a hygroma or old subdural hematoma. Mixed signal is seen in the adelita ection on the left-some component of blood products certainly may be present. There may be a small arachnoid cyst adjacent to the left cerebellar hemisphere superolaterally. Otherwise, no acute hemorrhage, mass effect, midline shift, hydrocephalus, or acute, large territoria l infarct. No significant atrophy. No significant white matter abnormality. CRANIOCERVICAL JUNCTION: No significant abnormality. VASCULAR FLOW-VOIDS: No significant abnormality. ORBITS: No significant abnormality of visualized orbits. SINUSES / MASTOIDS: Mild to moderate mucosal thickening in the ethmoids. There is significant opacifi cation of the mastoids. Air-fluid level seen in the nasopharynx. NG tube is in place. ADDITIONAL FINDINGS: None. IMPRESSION: 1. Findings in the posterior temporal lobe on the right as described above. Postcontrast imaging and/ or unenhanced CT of the head may be helpful for further evaluation. 2. 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 3. Sinus disease, as described above. Signer Name: Wood Montenegro MD, III Signed: 07/28/2020 5:29 PM Workstation Name: [id number]
[2020-07-28] MEDS ORDERED: TOTAL PARENTERAL NUTRITION 1,800 ML IV SCH (20:00)
[2020-07-28] MEDS ORDERED: FAMOTIDINE 20 MG TAB PO SCH (22:00)
[2020-07-29] MEDS: INSULIN REGULAR, HUMAN 100 UNITS/1 ML SUB-Q SCH ×4 (00:13→17:26)
[2020-07-29] MEDS: IPRATROPIUM/ALBUTEROL SULFATE 3 ML AMPUL.NEB IH SCH ×3 (02:01→13:56)
[2020-07-29] MEDS: fentaNYL DRIP Premix 2,000 MCG/100 ML BAG IV SCH ×2 (03:28→08:55)
[2020-07-29 05:49] LABS: Hematocrit 24.6 % (30.3-42.9); Hemoglobin 8.3 gm/dl (10.1-14.3); Mean Corpuscular HGB Conc 34 % (30-34); Mean Corpuscular Volume 101 fl (79-97); Platelet Count 113 K/mm3 (140-440); Red Blood Count 2.43 M/mm3 (3.65-5.03); Red Cell Distribution Width 13.4 % (13.2-15.2)
[2020-07-29] MEDS: ALPRAZolam 1 MG TAB PO SCH ×2 (06:12→13:50)
[2020-07-29 07:40] LABS: Blood Urea Nitrogen 19 mg/dL (7-17); Calcium 7.7 mg/dL (8.4-10.2); Hemolysis Index 1
[2020-07-29 07:43] LABS: BUN/Creatinine Ratio 48
[2020-07-29] MEDS: cefTRIAXone/NS 1 GM/50 ML 1 GM/50 ML BAG IV SCH (09:05)
--- NOTE | 2020-07-29 09:57 | Progress Note ---
Assessment and Plan Impression: * Nonoliguric DOREEN secondary to multifactorial etiologies: prerenal component due to volume depletion vs ATN (sepsis) * Acute hypoxic respiratory failure * Sepsis * Klebsiella UTI * Acute encephelopathy * Uremia * Hypernatremia: free water deficit, now improved * Hyperkalemia->hypokalemia now: likely nutritional * Metabolic Alkalosis: likely contracted Plan: * Renal function improved with volume resuscitation. Peaked with creatinine 7.7->0.5->0.4 this AM over past week. No acute indication for renal replacement therapy at this time. Continue conservative management. Creatinine now abnormally low, likely due to poor nutrition * Continue K repletion via TPN * Checked urine chloride for alkalosis, is higher than expected, still feel that patient appears more contracted but will follow, HCO3 stable at 34 * ?Possible withdrawal - note order for Ativan prn, on CIWA protocol * Abx per primary team * Pressors prn to maintain MAP>65 * Avoid potential nephrotoxins * Dose medications for renal function * AM labs Subjective Date of service: 07/29/20 Interval history: No acute changes noted, remains intubated PRVC 35%, On Levophed 6mcg Objective - Exam Narrative Exam: General appearance: intubated, sedated EENT: ATNC Respiratory: Present: Ronchi Cardiology: regular, S1S2 Gastrointestinal: normal, no tenderness, no distended Integumentary: no rash, warm and dry Neurologic: other (agitated) Musculoskeletal: other (no edema) - Vital Signs Vital signs: Vital Signs - 12hr 07/28/20 07/28/20 07/28/20 22:00 22:10 22:15 Temperature Pulse Rate 80 75 77 Pulse Rate [ Bilateral Throughout] Pulse Rate [ From Monitor] Respiratory 21 20 20 Rate Respiratory Rate [Bilateral Throughout] Blood Pressure 90/49 107/49 106/48 O2 Sat by Pulse 96 96 97 Oximetry 07/28/20 07/28/20 07/28/20 22:30 22:45 23:00 Temperature Pulse Rate 81 76 82 Pulse Rate [ Bilateral Throughout] Pulse Rate [ From Monitor] Respiratory 20 20 20 Rate Respiratory Rate [Bilateral Throughout] Blood Pressure 106/54 107/47 105/53 O2 Sat by Pulse 97 97 97 Oximetry 07/28/20 07/28/20 07/28/20 23:15 23:30 23:45 Temperature Pulse Rate 88 86 85 Pulse Rate [ Bilateral Throughout] Pulse Rate [ From Monitor] Respiratory 20 20 20 Rate Respiratory Rate [Bilateral Throughout] Blood Pressure 104/56 103/49 101/51 O2 Sat by Pulse 97 96 97 Oximetry 07/28/20 07/28/20 07/29/20 23:47 23:54 00:00 Temperature 100.1 F H Pulse Rate 88 88 Pulse Rate [ Bilateral Throughout] Pulse Rate [ 87 From Monitor] Respiratory 20 Rate Respiratory Rate [Bilateral Throughout] Blood Pressure 101/51 99/52 O2 Sat by Pulse 97 97 Oximetry 07/29/20 07/29/20 07/29/20 00:15 00:30 00:45 Temperature Pulse Rate 86 85 87 Pulse Rate [ Bilateral Throughout] Pulse Rate [ From Monitor] Respiratory 20 20 20 Rate Respiratory Rate [Bilateral Throughout] Blood Pressure 102/51 103/49 105/51 O2 Sat by Pulse 97 97 97 Oximetry 07/29/20 07/29/20 07/29/20 01:00 01:15 01:30 Temperature Pulse Rate 79 88 93 H Pulse Rate [ Bilateral Throughout] Pulse Rate [ From Monitor] Respiratory 20 28 H 19 Rate Respiratory Rate [Bilateral Throughout] Blood Pressure 103/47 110/56 107/53 O2 Sat by Pulse 97 97 97 Oximetry 07/29/20 07/29/20 07/29/20 01:45 01:58 02:00 Temperature Pulse Rate 86 80 Pulse Rate [ 84 Bilateral Throughout] Pulse Rate [ From Monitor] Respiratory 20 20 Rate Respiratory 20 Rate [Bilateral Throughout] Blood Pressure 105/50 105/53 O2 Sat by Pulse 97 96 Oximetry 07/29/20 07/29/20 07/29/20 02:15 02:30 02:45 Temperature Pulse Rate 90 89 99 H Pulse Rate [ Bilateral Throughout] Pulse Rate [ From Monitor] Respiratory 22 23 28 H Rate Respiratory Rate [Bilateral Throughout] Blood Pressure 108/59 122/58 128/58 O2 Sat by Pulse 94 97 96 Oximetry 07/29/20 07/29/20 07/29/20 03:00 03:15 03:30 Temperature Pulse Rate 108 H 91 H 85 Pulse Rate [ Bilateral Throughout] Pulse Rate [ From Monitor] Respiratory 37 H 21 19 Rate Respiratory Rate [Bilateral Throughout] Blood Pressure 142/77 108/54 101/50 O2 Sat by Pulse 97 94 97 Oximetry 07/29/20 07/29/20 07/29/20 03:42 03:45 04:00 Temperature 99.4 F Pulse Rate 84 84 Pulse Rate [ Bilateral Throughout] Pulse Rate [ 87 From Monitor] Respiratory 18 20 Rate Respiratory Rate [Bilateral Throughout] Blood Pressure 105/53 106/52 O2 Sat by Pulse 97 97 Oximetry 07/29/20 07/29/20 07/29/20 04:08 04:15 04:30 Temperature Pulse Rate 83 85 86 Pulse Rate [ Bilateral Throughout] Pulse Rate [ From Monitor] Respiratory 20 20 Rate Respiratory Rate [Bilateral Throughout] Blood Pressure 103/51 99/50 98/48 O2 Sat by Pulse 95 97 96 Oximetry 07/29/20 07/29/20 07/29/20 04:45 05:00 05:15 Temperature Pulse Rate 75 96 H 100 H Pulse Rate [ Bilateral Throughout] Pulse Rate [ From Monitor] Respiratory 20 23 28 H Rate Respiratory Rate [Bilateral Throughout] Blood Pressure 103/49 137/62 138/67 O2 Sat by Pulse 95 94 94 Oximetry 07/29/20 07/29/20 07/29/20 05:30 05:45 06:00 Temperature Pulse Rate 102 H 102 H 112 H Pulse Rate [ Bilateral Throughout] Pulse Rate [ From Monitor] Respiratory 22 28 H 22 Rate Respiratory Rate [Bilateral Throughout] Blood Pressure 141/64 159/66 155/95 O2 Sat by Pulse 96 96 100 Oximetry 07/29/20 07/29/20 07/29/20 06:15 06:30 06:45 Temperature Pulse Rate 86 85 83 Pulse Rate [ Bilateral Throughout] Pulse Rate [ From Monitor] Respiratory 20 20 20 Rate Respiratory Rate [Bilateral Throughout] Blood Pressure 90/48 88/49 92/48 O2 Sat by Pulse 97 97 97 Oximetry 07/29/20 07/29/20 07/29/20 07:00 07:15 07:30 Temperature Pulse Rate 77 73 72 Pulse Rate [ Bilateral Throughout] Pulse Rate [ From Monitor] Respiratory 20 20 20 Rate Respiratory Rate [Bilateral Throughout] Blood Pressure 91/49 101/50 103/50 O2 Sat by Pulse 96 95 95 Oximetry 07/29/20 07/29/20 07/29/20 07:45 08:00 08:15 Temperature 99.2 F Pulse Rate 80 78 76 Pulse Rate [ Bilateral Throughout] Pulse Rate [ From Monitor] Respiratory 20 20 20 Rate Respiratory Rate [Bilateral Throughout] Blood Pressure 99/55 104/53 109/55 O2 Sat by Pulse 93 93 94 Oximetry 07/29/20 07/29/20 07/29/20 08:29 08:30 08:45 Temperature Pulse Rate 87 87 70 Pulse Rate [ 76 Bilateral Throughout] Pulse Rate [ From Monitor] Respiratory 20 20 Rate Respiratory 21 Rate [Bilateral Throughout] Blood Pressure 92/50 96/52 101/52 O2 Sat by Pulse 95 93 94 Oximetry - Lab 07/29/20 04:00 07/29/20 04:50 Most recent lab results ABG pH 7.461 (7.320-7.450) H 07/29/20 04:00 ABG O2 Saturation 97.6 (0-100) 07/29/20 04:00 Calcium 7.7 mg/dL (8.4-10.2) L 07/29/20 04:50 Phosphorus 2.70 mg/dL (2.5-4.5) 07/29/20 04:50 Magnesium 1.60 mg/dL (1.7-2.3) L 07/29/20 04:50 Urine Creatinine 40.4 mg/dL (0.1-20.0) H 07/26/20 07:14 Urine Sodium 10 mmol/L 07/21/20 Unknown Medications & Allergies - Medications Allergies/Adverse Reactions: Allergies Iodine and Iodide Containing Produc Adverse Reaction (Verified 10/26/18 10:10) Rash Home Medications: Home Medications Medication Instructions Recorded Confirmed Last Taken Type Ondansetron [Zofran TAB] 4 mg PO Q8HR PRN #15 tablet 07/17/17 Unknown Rx Ibuprofen [Motrin 600 MG tab] 600 mg PO Q8H PRN #30 tablet 01/18/18 Unknown Rx Sulfamethoxazole/Trimethoprim 1 each PO BID 10 Days #20 tablet 01/18/18 Unknown Rx [Bactrim DS TAB] cephALEXin [Keflex] 500 mg PO Q12HR #20 capsule 01/18/18 Unknown Rx Famotidine [Pepcid] 20 mg PO BID #10 tablet 05/17/18 Unknown Rx Mag Hydrox/Aluminum Hyd/Simeth 15 ml PO QID #1 oral.susp 05/17/18 Unknown Rx [Maalox Advanced Suspension] Ondansetron [Zofran ODT TAB] 8 mg PO Q12HR #20 tab.rapdis 05/17/18 Unknown Rx Acetaminophen/Codeine [Tylenol 1 tab PO Q6H PRN #12 tab 10/26/18 Unknown Rx /Codeine # 3 tab] Clindamycin [Clindamycin CAP] 300 mg PO Q8H #21 cap 10/26/18 Unknown Rx Esomeprazole Magnesium [NexIUM] 40 mg PO QDAY 20 Days #20 06/04/19 Unknown Rx capsule. ALPRAZolam [Xanax TAB] 2 mg PO Q8H 07/23/20 07/23/20 Unknown History Carisoprodol [Soma] 350 mg PO Q6H 07/23/20 07/23/20 Unknown History Ezetimibe [Zetia] 10 mg PO DAILY 07/23/20 07/23/20 Unknown History Gabapentin [Neurontin] 600 mg PO Q6H 07/23/20 07/23/20 Unknown History HYDROcodone/APAP 5-325 1 tab Q6H 07/23/20 07/23/20 Unknown History SUMAtriptan SUCCINATE [Imitrex] 100 mg PO Q2H PRN 07/23/20 07/23/20 Unknown History Active Medications: Generic Name Dose Route Start Last Admin Trade Name Freq PRN Reason Stop Dose Admin Acetaminophen 650 mg 07/20/20 22:51 Acetaminophen 325 Mg/10.15 Ml Oral Liqd Unit Dose FEEDTUBE Q6H PRN Pain MILD(1-3)/Fever >100.5/HESS Albuterol/Ipratropium 1 ampul 07/20/20 23:00 07/29/20 08:29 Ipratropium/Albuterol Sulfate 3 Ml Ampul.Neb IH 1 ampul Q6HRT HONEY Administration Alprazolam 2 mg 07/24/20 22:00 07/29/20 06:12 Alprazolam 1 Mg Tab PO 2 mg Q8HR HONEY Administration Lipase/Protease/Amylase 1 each 07/24/20 18:26 Lipase 10,500/Protease 25,000/Amylase 43,750 (Units) Dr [place] FEEDTUBE PRN PRN For Clogged Feeding Tube Dextrose 50 ml 07/26/20 10:10 Dextrose 50% In Water (25gm) 50 Ml Syringe IV Q30MIN PRN Hypoglycemia Protocol Famotidine 20 mg 07/28/20 22:00 07/29/20 09:04 Famotidine 20 Mg Tab PO 20 mg BID HONEY Administration Fentanyl 50 mcg 07/28/20 05:43 07/28/20 06:15 Fentanyl 100 Mcg/2 Ml Inj IV 50 mcg Q10MIN PRN Administration ANALGESIA Folic Acid 1 mg 07/29/20 10:00 07/29/20 09:04 Folic Acid 1 Mg Tab PO 1 mg DAILY HONEY Administration Hydralazine HCl 10 mg 07/22/20 23:25 07/27/20 23:08 Hydralazine 20 Mg/1 Ml Inj IV 10 mg Q6H PRN Administration Hypertension Hydrophilic Ointment 1 applic 07/28/20 05:43 Lip Therapy Vaseline TP Q2HR PRN Dry Lips Norepinephrine 4 mg in 250 mls @ 7.5 mls/hr 07/28/20 02:00 07/29/20 06:42 Levophed Drip 4 Mg/Ns 250 Ml IV 6 mcg/min TITR HONEY 22.5 mls/hr Titration Protocol 2 MCG/MIN Fentanyl Citrate 2,000 mcg in 100 mls @ 2.65 mls/hr 07/28/20 06:00 07/29/20 08:55 Fentanyl Drip Premix IV 2 mcg/kg/hr TITR HONEY 5.3 mls/hr Administration Protocol 1 MCG/KG/HR Ceftriaxone Sodium 1 gm in 50 mls @ 100 mls/hr 07/28/20 13:00 07/29/20 09:05 Rocephin/Ns 1 Gm/50 Ml IV 100 mls/hr Q24HR [facility] Administration Protocol Vancomycin HCl 750 mg/ Sodium 265 mls @ 166.667 mls/hr 07/29/20 15:00 Chloride IV Q24H [facility] Amino Acids/Electrolytes/Dextrose 1,800 mls @ 75 mls/hr 07/28/20 20:00 07/28/20 20:33 Tpn Adult IV 07/29/20 19:59 75 mls/hr DAILY@2000 [facility] Administration Protocol Insulin Human Regular 0 units 07/26/20 12:00 07/29/20 06:12 Insulin Regular, Human 100 Units/1 Ml SUB-Q Not Given Q6HR [facility] Protocol Metoclopramide HCl 5 mg 07/20/20 22:51 Metoclopramide 10 Mg/2 Ml Inj IV Q6H PRN Nausea And Vomiting Multi-Ingred Cream/Lotion/Oil/Oint 1 applic 07/28/20 05:43 Mineral Oil/Petrolatum, White Ophth Oint 3.5 Gm OU Q4HR PRN Dry Eye(s) Simple Syrup 15 ml 07/24/20 18:26 Simple Syrup 15 Ml FEEDTUBE PRN PRN Hypoglycemia Simple Syrup 30 ml 07/24/20 18:26 Simple Syrup 15 Ml FEEDTUBE PRN PRN Hypoglycemia Sodium Bicarbonate 325 mg 07/24/20 18:26 Sodium Bicarbonate 325 Mg Tab FEEDTUBE PRN PRN For Clogged Feeding Tube Sodium Chloride 10 ml 07/21/20 10:00 07/29/20 09:04 Sodium Chloride 0.9% 10 Ml Flush Syringe IV 10 ml BID HONEY Administration Sodium Chloride 10 ml 07/20/20 22:51 07/25/20 05:01 Sodium Chloride 0.9% 10 Ml Flush Syringe IV 10 ml PRN PRN Administration LINE FLUSH Thiamine HCl 100 mg 07/29/20 10:00 07/29/20 09:04 Thiamine 100 Mg Tab PO 100 mg QDAY HONEY Administration
[2020-07-29] MEDS ORDERED: THIAMINE 100 MG TAB PO SCH (10:00)
[2020-07-29] MEDS ORDERED: FOLIC ACID 1 MG TAB PO SCH (10:00)
--- NOTE | 2020-07-29 10:11 | Electrocardiograph Report ---
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
--- NOTE | 2020-07-29 10:21 | Progress Note ---
Assessment and Plan Cultures: 07/21/2020 COVID-19 PCR: Negative Hepatitis C antibody: Reactive 07/20/2020 blood culture: No growth 07/20/2020 urine culture: Klebsiella pneumoniae A/P: 65-year-old female with hepatitis C, hypertension, migraines admitted to the hospital with altered mental status, hypothermic, septic: #S/P cardiorespiratory arrest 07/27/2020: remains on pressors. #Sepsis: Likely secondary to UTI. UA with significant pyuria. Chest x-ray on admission revealed some interstitial edema, no dense air bronchograms as such. #Acute encephalopathy: Likely metabolic, initially had severe hypernatremia. Neurology on board. #DOREEN: Resolved #Acute resp failure: now on the vent. #Chronic hepatitis C: Antibody positive. Treatment status unknown. Can be worked up as an outpatient. Recs: - f/u ET aspirate culture, continue empiric abx: ceftriaxone + vancomycin, D2 - overall, poor prognosis. Agree with DNR status Fabiano Sanchez MD, FACP [facility] O: [phone] F: [phone] Subjective Date of service: 07/29/20 Interval history: One low grade fever. Remains on the vent. Objective - Exam Narrative Exam: Physical Exam: Constitutional: intubated, on the vent Head, Ears, Nose: Normocephalic, atraumatic. External ears, nose normal Eyes: Conjunctivae/corneas clear. No icterus. No ptosis. Neck:intubated Oral: intubated Cardiovascular: S1, S2 normal. Respiratory: AE fair b/l GI: Soft, non-tender; bowel sounds normal. No peritoneal signs Musculoskeletal: No pedal edema, no cyanosis. Skin: No rash or abscess Hem/Lymphatic: No palpable cervical or supraclavicular nodes. No lymphangitis Psych: on vent Neurological: on vent. - Constitutional Vitals: Vital Signs Temp Pulse Resp BP Pulse Ox 99.2 F 70 20 101/52 94 07/29/20 08:00 07/29/20 08:45 07/29/20 08:45 07/29/20 08:45 07/29/20 08:45 Temperature -Last 24 Hours Temperature 99.2 F Temperature 99.4 F Temperature 100.1 F Temperature 98.8 F Temperature 98.4 F Temperature 98.2 F - Labs CBC & Chem 7: 07/29/20 04:00 07/29/20 04:50 Labs: Abnormal lab results 07/28/20 07/28/20 07/28/20 Range/Units 04:40 10:30 17:53 WBC 17.0 H (4.5-11.0) K/mm3 RBC 3.16 L (3.65-5.03) M/mm3 Hgb (10.1-14.3) gm/dl Hct (30.3-42.9) % MCV 101 H (79-97) fl MCH 34 H (28-32) pg Plt Count 124 L (140-440) K/mm3 ABG pH (7.320-7.450) ABG Hemoglobin (12.0-17.5) ABG Glucose (65-95) mg/dL Carbon Dioxide 31 H (22-30) mmol/L BUN 24 H (7-17) mg/dL Creatinine 0.4 L D (0.6-1.2) mg/dL Glucose 106 H (65-100) mg/dL POC Glucose 118 H (70-105) mg/dL Calcium 7.6 L (8.4-10.2) mg/dL Magnesium (1.7-2.3) mg/dL Total Creatine Kinase 227 H (30-135) units/L Arterial Blood Glucose (65-95) mg/dL Arterial Blood Ionized Calcium (4.6-5.3) mg/dL 07/29/20 07/29/20 07/29/20 Range/Units 04:00 04:00 04:50 WBC (4.5-11.0) K/mm3 RBC 2.43 L (3.65-5.03) M/mm3 Hgb 8.3 L (10.1-14.3) gm/dl Hct 24.6 L D (30.3-42.9) % MCV 101 H (79-97) fl MCH 34 H (28-32) pg Plt Count 113 L (140-440) K/mm3 ABG pH 7.461 H (7.320-7.450) ABG Hemoglobin 8.9 L (12.0-17.5) ABG Glucose 128 H (65-95) mg/dL Carbon Dioxide 34 H (22-30) mmol/L BUN 19 H (7-17) mg/dL Creatinine 0.4 L (0.6-1.2) mg/dL Glucose 115 H (65-100) mg/dL POC Glucose (70-105) mg/dL Calcium 7.7 L (8.4-10.2) mg/dL Magnesium (1.7-2.3) mg/dL Total Creatine Kinase (30-135) units/L Arterial Blood Glucose 128 H (65-95) mg/dL Arterial Blood Ionized Calcium 4.3 L (4.6-5.3) mg/dL 07/29/20 Range/Units 04:50 WBC (4.5-11.0) K/mm3 RBC (3.65-5.03) M/mm3 Hgb (10.1-14.3) gm/dl Hct (30.3-42.9) % MCV (79-97) fl MCH (28-32) pg Plt Count (140-440) K/mm3 ABG pH (7.320-7.450) ABG Hemoglobin (12.0-17.5) ABG Glucose (65-95) mg/dL Carbon Dioxide (22-30) mmol/L BUN (7-17) mg/dL Creatinine (0.6-1.2) mg/dL Glucose (65-100) mg/dL POC Glucose (70-105) mg/dL Calcium (8.4-10.2) mg/dL Magnesium 1.60 L (1.7-2.3) mg/dL Total Creatine Kinase (30-135) units/L Arterial Blood Glucose (65-95) mg/dL Arterial Blood Ionized Calcium (4.6-5.3) mg/dL
[2020-07-29] MEDS: NORepinephrine/NS 4 MG-250 ML 4 MG/250 ML BAG IV SCH (10:25)
--- NOTE | 2020-07-29 11:19 | Progress Note ---
Assessment and Plan 65 y/o female with altered mental state, hypotension, renal failure and electrolyte imbalance with UTI seen on urine analysis and presumptive sepsis with distributive shock. 07/29/20: Called on speaker with nurse and STOCK CUTTER present listening. Patient confirms that he wants to come up and sign the "papers" to withdraw care. He and one other person are going to come up. I have asked the STOCK CUTTER to alert the attending physician to come sign and be present when family comes if I am not here. Was planning on switching to tube feeds after this back of TPN is finished, however will transition to comfort measures only. These are the wi shes of the family. 07/27/20: could be post ATN diuresis vs SIADH. Will monitor volume closely. M ay need to obtain CT of head with contrast to make sure no new abnormalities are present. Will get family to assess with screening form for MRI. EEG should be ordered. Continue bipap but have no objection to trying Vaportherm later today if tolerates, continue bipap at night and PRN. Tolerating PPN. If able to wean off bipap can use NG tube for feeds until mental status improves, if it does. Guarded prognosis. 07/26/20: Picc placement going on now. Will start PPN after that and then stop D5 drip. If able to wean off bipap can start Tube feeds tomorrow once bag of PPN finished. LTACH referral in place. Suggest neurology consult as well. Will check B12 and folate levels. Guarded prognosis. Would like to obtain CT of chest when able to be more compliant and more stable in scanner. 07/24/20: Will attempt to wean bipap therapy for sats >88%. Slowed rate of D5 down to not correct Na to fast. Suggest starting patient on PPN until bipap can be weaned off. She is very high risk for aspiration with NG tube feeds and continuous bipap therapy. More calm with PRN ativan therapy so will continue. BP elevated but no fever, still could be withdrawing from ETOH. Discussed on ro unds and will see if patient is an LTACH candidate. 07/23/20: Will transfer to floor given her AND status. Family is still making decisions. Discussed with IM and they agree. WIll see PRN on the floor. Very poor prognosis. 07/22/20: Stop maintenance. Continue current abx therapy. Will start scheduled haldol therapy to see if this will hep mental sate. Suggest continuation of bicarb drip and will give a couple of amps of bicarb today. Follow up renal recs. Patient has moderate pulmonary hypertension seen on echo. Will obtain lung history once more awake or from . Could be related to underlying lung disease. CXR maybe more consistent with ILD than pulmonary edema. Will ob tain CT of chest when more stable. Remove central line today and obtain peripheral access. Maybe stable enough for step down, will discuss on rounds. Can stop q6 hour BMP's. ONce off bipap can assess nutrition. 1. Needs more fluid resuscitation. Ordered for 2 more liters of saline now and additional to be bolused after rounds today 2. Agree with broad spec abx therapy follow up on cultures of urine and blood 3. Currently on bipap but hopeful we can wean as tolerated given improvement in mental status. 4. Spoke with renal and they agree with more volume and chemical management of hyperkalemia 5. Given CXR appearance and no other imaging, will obtain 2D echo as well. her hypotension could be from sepsis but need to make sure cardiac function is ok. She may need inotropic help with pressor requirement does not improve. 6. Continue to assess volume throughout the day 7. CMP q6 hours to monitor sodium and other electrolytes 8. ordered picc but likely will not happen today. continue right femoral groin line. 9. Hold on feeds given her pressor requirement and bipap requirement 10. DVT and GI prophylaxis. Guarded prognosis. CCT 31 minutes. Subjective Date of service: 07/29/20 Interval history: has now decided to make the patient AND again and is requesting to come visit her as he wishes to withdraw care. He did not remember speaking to me earlier this week but did acknowledge his discussion with the IMS physician from last week. He wants to withdraw care and states that he will be her at noon. Patient's vitals are stable. No acute events or night. She had MRI which was not very helpful and they have recommended contrasted CT but she is allergic to iodine. Objective Vital Signs - 12hr 07/28/20 07/28/20 07/28/20 23:15 23:30 23:45 Temperature Pulse Rate 88 86 85 Pulse Rate [ Bilateral Throughout] Pulse Rate [ From Monitor] Respiratory 20 20 20 Rate Respiratory Rate [Bilateral Throughout] Blood Pressure 104/56 103/49 101/51 O2 Sat by Pulse 97 96 97 Oximetry 07/28/20 07/28/20 07/29/20 23:47 23:54 00:00 Temperature 100.1 F H Pulse Rate 88 88 Pulse Rate [ Bilateral Throughout] Pulse Rate [ 87 From Monitor] Respiratory 20 Rate Respiratory Rate [Bilateral Throughout] Blood Pressure 101/51 99/52 O2 Sat by Pulse 97 97 Oximetry 07/29/20 07/29/20 07/29/20 00:15 00:30 00:45 Temperature Pulse Rate 86 85 87 Pulse Rate [ Bilateral Throughout] Pulse Rate [ From Monitor] Respiratory 20 20 20 Rate Respiratory Rate [Bilateral Throughout] Blood Pressure 102/51 103/49 105/51 O2 Sat by Pulse 97 97 97 Oximetry 07/29/20 07/29/20 07/29/20 01:00 01:15 01:30 Temperature Pulse Rate 79 88 93 H Pulse Rate [ Bilateral Throughout] Pulse Rate [ From Monitor] Respiratory 20 28 H 19 Rate Respiratory Rate [Bilateral Throughout] Blood Pressure 103/47 110/56 107/53 O2 Sat by Pulse 97 97 97 Oximetry 07/29/20 07/29/20 07/29/20 01:45 01:58 02:00 Temperature Pulse Rate 86 80 Pulse Rate [ 84 Bilateral Throughout] Pulse Rate [ From Monitor] Respiratory 20 20 Rate Respiratory 20 Rate [Bilateral Throughout] Blood Pressure 105/50 105/53 O2 Sat by Pulse 97 96 Oximetry 07/29/20 07/29/20 07/29/20 02:15 02:30 02:45 Temperature Pulse Rate 90 89 99 H Pulse Rate [ Bilateral Throughout] Pulse Rate [ From Monitor] Respiratory 22 23 28 H Rate Respiratory Rate [Bilateral Throughout] Blood Pressure 108/59 122/58 128/58 O2 Sat by Pulse 94 97 96 Oximetry 07/29/20 07/29/20 07/29/20 03:00 03:15 03:30 Temperature Pulse Rate 108 H 91 H 85 Pulse Rate [ Bilateral Throughout] Pulse Rate [ From Monitor] Respiratory 37 H 21 19 Rate Respiratory Rate [Bilateral Throughout] Blood Pressure 142/77 108/54 101/50 O2 Sat by Pulse 97 94 97 Oximetry 07/29/20 07/29/20 07/29/20 03:42 03:45 04:00 Temperature 99.4 F Pulse Rate 84 84 Pulse Rate [ Bilateral Throughout] Pulse Rate [ 87 From Monitor] Respiratory 18 20 Rate Respiratory Rate [Bilateral Throughout] Blood Pressure 105/53 106/52 O2 Sat by Pulse 97 97 Oximetry 07/29/20 07/29/20 07/29/20 04:08 04:15 04:30 Temperature Pulse Rate 83 85 86 Pulse Rate [ Bilateral Throughout] Pulse Rate [ From Monitor] Respiratory 20 20 Rate Respiratory Rate [Bilateral Throughout] Blood Pressure 103/51 99/50 98/48 O2 Sat by Pulse 95 97 96 Oximetry 07/29/20 07/29/20 07/29/20 04:45 05:00 05:15 Temperature Pulse Rate 75 96 H 100 H Pulse Rate [ Bilateral Throughout] Pulse Rate [ From Monitor] Respiratory 20 23 28 H Rate Respiratory Rate [Bilateral Throughout] Blood Pressure 103/49 137/62 138/67 O2 Sat by Pulse 95 94 94 Oximetry 07/29/20 07/29/20 07/29/20 05:30 05:45 06:00 Temperature Pulse Rate 102 H 102 H 112 H Pulse Rate [ Bilateral Throughout] Pulse Rate [ From Monitor] Respiratory 22 28 H 22 Rate Respiratory Rate [Bilateral Throughout] Blood Pressure 141/64 159/66 155/95 O2 Sat by Pulse 96 96 100 Oximetry 07/29/20 07/29/20 07/29/20 06:15 06:30 06:45 Temperature Pulse Rate 86 85 83 Pulse Rate [ Bilateral Throughout] Pulse Rate [ From Monitor] Respiratory 20 20 20 Rate Respiratory Rate [Bilateral Throughout] Blood Pressure 90/48 88/49 92/48 O2 Sat by Pulse 97 97 97 Oximetry 07/29/20 07/29/20 07/29/20 07:00 07:15 07:30 Temperature Pulse Rate 77 73 72 Pulse Rate [ Bilateral Throughout] Pulse Rate [ From Monitor] Respiratory 20 20 20 Rate Respiratory Rate [Bilateral Throughout] Blood Pressure 91/49 101/50 103/50 O2 Sat by Pulse 96 95 95 Oximetry 07/29/20 07/29/20 07/29/20 07:45 08:00 08:08 Temperature 99.2 F Pulse Rate 80 78 76 Pulse Rate [ Bilateral Throughout] Pulse Rate [ 76 From Monitor] Respiratory 20 20 20 Rate Respiratory Rate [Bilateral Throughout] Blood Pressure 99/55 104/53 O2 Sat by Pulse 93 93 93 Oximetry 07/29/20 07/29/20 07/29/20 08:15 08:29 08:30 Temperature Pulse Rate 76 87 87 Pulse Rate [ 76 Bilateral Throughout] Pulse Rate [ From Monitor] Respiratory 20 20 Rate Respiratory 21 Rate [Bilateral Throughout] Blood Pressure 109/55 92/50 96/52 O2 Sat by Pulse 94 95 93 Oximetry 07/29/20 07/29/20 07/29/20 08:45 09:00 09:15 Temperature Pulse Rate 70 91 H 79 Pulse Rate [ Bilateral Throughout] Pulse Rate [ From Monitor] Respiratory 20 20 20 Rate Respiratory Rate [Bilateral Throughout] Blood Pressure 101/52 81/44 105/56 O2 Sat by Pulse 94 95 98 Oximetry 07/29/20 07/29/20 07/29/20 09:30 09:45 10:00 Temperature Pulse Rate 72 76 74 Pulse Rate [ Bilateral Throughout] Pulse Rate [ From Monitor] Respiratory 19 20 20 Rate Respiratory Rate [Bilateral Throughout] Blood Pressure 112/56 112/55 114/54 O2 Sat by Pulse 96 97 97 Oximetry 07/29/20 10:15 Temperature Pulse Rate 76 Pulse Rate [ Bilateral Throughout] Pulse Rate [ From Monitor] Respiratory 20 Rate Respiratory Rate [Bilateral Throughout] Blood Pressure 109/56 O2 Sat by Pulse 97 Oximetry CBC and BMP: 07/29/20 04:00 07/29/20 04:50 ABG, PT/INR, D-dimer: ABG ABG pH 7.461 (7.320-7.450) H 07/29/20 04:00 POC ABG pCO2 46.1 mmHg (32.0-48.0) 07/29/20 04:00 POC ABG pO2 101.1 mmHg (83-108) 07/29/20 04:00 POC ABG HCO3 32.1 07/29/20 04:00 ABG O2 Saturation 97.6 (0-100) 07/29/20 04:00 PT/INR, D-dimer PT 20.1 Sec. (12.2-14.9) H 07/20/20 19:32 INR 1.72 (0.87-1.13) H 07/20/20 19:32 D-Dimer 2098.49 ng/mlDDU (0-234) H 07/20/20 21:59 Abnormal lab findings: Abnormal Labs 07/20/20 07/20/20 07/20/20 19:20 19:27 19:27 WBC 17.9 H RBC Hgb Hct MCV 102 H MCH 33 H Plt Count Lymph % (Auto) 4.4 L Lymph # (Auto) 0.8 L Baso # (Auto) 0.3 H Seg Neutrophils % 90.0 H Seg Neuts % (Manual) Lymphocytes % (Manual) Seg Neutrophils # 16.1 H Seg Neutrophils # Man Lymphocytes # (Manual) PT INR D-Dimer ABG pH POC ABG pO2 ABG Hemoglobin ABG Oxyhemoglobin ABG Sodium ABG Potassium ABG Chloride ABG Glucose Sodium 130 L Potassium 5.6 H Chloride 84.4 L Carbon Dioxide 14 L BUN 108 H Creatinine 7.7 H Glucose POC Glucose 55 L Lactic Acid Calcium 7.4 L Phosphorus Magnesium Ferritin AST 306 H ALT 97 H Ammonia Lactate Dehydrogenase Total Creatine Kinase CK-MB (CK-2) C-Reactive Protein Total Protein Albumin 3.3 L Prealbumin Vitamin B12 Arterial Blood Glucose Arterial Blood Ionized Calcium Urine WBC (Auto) Urine Creatinine Hepatitis C Antibody 07/20/20 07/20/20 07/20/20 19:27 19:27 19:32 WBC RBC Hgb Hct MCV MCH Plt Count Lymph % (Auto) Lymph # (Auto) Baso # (Auto) Seg Neutrophils % Seg Neuts % (Manual) Lymphocytes % (Manual) Seg Neutrophils # Seg Neutrophils # Man Lymphocytes # (Manual) PT 20.1 H INR 1.72 H D-Dimer ABG pH POC ABG pO2 ABG Hemoglobin ABG Oxyhemoglobin ABG Sodium ABG Potassium ABG Chloride ABG Glucose Sodium Potassium Chloride Carbon Dioxide BUN Creatinine Glucose POC Glucose Lactic Acid 3.10 H* Calcium Phosphorus Magnesium Ferritin AST ALT Ammonia Lactate Dehydrogenase Total Creatine Kinase 98221 H CK-MB (CK-2) 289.0 H C-Reactive Protein Total Protein Albumin Prealbumin Vitamin B12 Arterial Blood Glucose Arterial Blood Ionized Calcium Urine WBC (Auto) Urine Creatinine Hepatitis C Antibody 07/20/20 07/20/20 07/20/20 19:52 19:59 20:41 WBC RBC Hgb Hct MCV MCH Plt Count Lymph % (Auto) Lymph # (Auto) Baso # (Auto) Seg Neutrophils % Seg Neuts % (Manual) Lymphocytes % (Manual) Seg Neutrophils # Seg Neutrophils # Man Lymphocytes # (Manual) PT INR D-Dimer ABG pH 7.016 L POC ABG pO2 55.7 L ABG Hemoglobin ABG Oxyhemoglobin 81.6 L ABG Sodium 129.0 L ABG Potassium 5.0 H ABG Chloride ABG Glucose 157 H Sodium Potassium Chloride Carbon Dioxide BUN Creatinine Glucose POC Glucose 108 H Lactic Acid Calcium Phosphorus Magnesium Ferritin AST ALT Ammonia Lactate Dehydrogenase Total Creatine Kinase CK-MB (CK-2) C-Reactive Protein Total Protein Albumin Prealbumin Vitamin B12 Arterial Blood Glucose 157 H Arterial Blood Ionized Calcium 3.9 L Urine WBC (Auto) > 182.0 H Urine Creatinine Hepatitis C Antibody 07/20/20 07/20/20 07/20/20 21:59 21:59 21:59 WBC RBC Hgb Hct MCV MCH Plt Count Lymph % (Auto) Lymph # (Auto) Baso # (Auto) Seg Neutrophils % Seg Neuts % (Manual) Lymphocytes % (Manual) Seg Neutrophils # Seg Neutrophils # Man Lymphocytes # (Manual) PT INR D-Dimer 2098.49 H ABG pH POC ABG pO2 ABG Hemoglobin ABG Oxyhemoglobin ABG Sodium ABG Potassium ABG Chloride ABG Glucose Sodium Potassium Chloride Carbon Dioxide BUN Creatinine Glucose POC Glucose Lactic Acid Calcium Phosphorus Magnesium Ferritin 1648.0 H AST ALT Ammonia Lactate Dehydrogenase 732 H Total Creatine Kinase CK-MB (CK-2) C-Reactive Protein 37.90 H Total Protein Albumin Prealbumin Vitamin B12 Arterial Blood Glucose Arterial Blood Ionized Calcium Urine WBC (Auto) Urine Creatinine Hepatitis C Antibody 07/20/20 07/21/20 07/21/20 23:35 01:56 04:00 WBC 15.1 H RBC 3.52 L Hgb Hct MCV 100 H MCH 33 H Plt Count Lymph % (Auto) Lymph # (Auto) Baso # (Auto) Seg Neutrophils % Seg Neuts % (Manual) Lymphocytes % (Manual) 2.0 L Seg Neutrophils # Seg Neutrophils # Man 9.4 H Lymphocytes # (Manual) 0.3 L PT INR D-Dimer ABG pH POC ABG pO2 ABG Hemoglobin ABG Oxyhemoglobin ABG Sodium ABG Potassium ABG Chloride ABG Glucose Sodium Potassium 5.8 H Chloride 95.4 L Carbon Dioxide 17 L BUN 100 H Creatinine 6.8 H Glucose 61 L POC Glucose 138 H Lactic Acid Calcium 6.3 L Phosphorus Magnesium Ferritin AST ALT Ammonia Lactate Dehydrogenase Total Creatine Kinase CK-MB (CK-2) C-Reactive Protein Total Protein Albumin Prealbumin Vitamin B12 Arterial Blood Glucose Arterial Blood Ionized Calcium Urine WBC (Auto) Urine Creatinine Hepatitis C Antibody 07/21/20 07/21/20 07/21/20 04:00 05:24 06:06 WBC RBC Hgb Hct MCV MCH Plt Count Lymph % (Auto) Lymph # (Auto) Baso # (Auto) Seg Neutrophils % Seg Neuts % (Manual) Lymphocytes % (Manual) Seg Neutrophils # Seg Neutrophils # Man Lymphocytes # (Manual) PT INR D-Dimer ABG pH POC ABG pO2 ABG Hemoglobin ABG Oxyhemoglobin ABG Sodium ABG Potassium ABG Chloride ABG Glucose Sodium Potassium 6.1 H* Chloride 97.2 L Carbon Dioxide 21 L BUN 104 H Creatinine 6.7 H Glucose POC Glucose 121 H 124 H Lactic Acid Calcium 6.5 L Phosphorus Magnesium Ferritin AST ALT Ammonia Lactate Dehydrogenase Total Creatine Kinase CK-MB (CK-2) C-Reactive Protein Total Protein Albumin Prealbumin Vitamin B12 Arterial Blood Glucose Arterial Blood Ionized Calcium Urine WBC (Auto) Urine Creatinine Hepatitis C Antibody 07/21/20 07/21/20 07/21/20 06:58 07:58 08:20 WBC RBC Hgb Hct MCV MCH Plt Count Lymph % (Auto) Lymph # (Auto) Baso # (Auto) Seg Neutrophils % Seg Neuts % (Manual) Lymphocytes % (Manual) Seg Neutrophils # Seg Neutrophils # Man Lymphocytes # (Manual) PT INR D-Dimer ABG pH POC ABG pO2 ABG Hemoglobin ABG Oxyhemoglobin ABG Sodium ABG Potassium ABG Chloride ABG Glucose Sodium Potassium Chloride Carbon Dioxide BUN Creatinine Glucose POC Glucose 128 H 133 H Lactic Acid Calcium Phosphorus Magnesium Ferritin AST ALT Ammonia Lactate Dehydrogenase Total Creatine Kinase 11146 H CK-MB (CK-2) C-Reactive Protein Total Protein Albumin Prealbumin Vitamin B12 Arterial Blood Glucose Arterial Blood Ionized Calcium Urine WBC (Auto) Urine Creatinine Hepatitis C Antibody 07/21/20 07/21/20 07/21/20 09:15 09:31 10:09 WBC RBC Hgb Hct MCV MCH Plt Count Lymph % (Auto) Lymph # (Auto) Baso # (Auto) Seg Neutrophils % Seg Neuts % (Manual) Lymphocytes % (Manual) Seg Neutrophils # Seg Neutrophils # Man Lymphocytes # (Manual) PT INR D-Dimer ABG pH 7.239 L POC ABG pO2 70.1 L ABG Hemoglobin 11.4 L ABG Oxyhemoglobin 92.6 L ABG Sodium 135.2 L ABG Potassium 5.1 H ABG Chloride ABG Glucose 147 H Sodium Potassium Chloride Carbon Dioxide BUN Creatinine Glucose POC Glucose 129 H Lactic Acid Calcium Phosphorus Magnesium Ferritin AST ALT Ammonia 24.0 L Lactate Dehydrogenase Total Creatine Kinase CK-MB (CK-2) C-Reactive Protein Total Protein Albumin Prealbumin Vitamin B12 Arterial Blood Glucose 147 H Arterial Blood Ionized Calcium 3.4 L Urine WBC (Auto) Urine Creatinine Hepatitis C Antibody 07/21/20 07/21/20 07/21/20 12:55 14:19 17:20 WBC RBC Hgb Hct MCV MCH Plt Count Lymph % (Auto) Lymph # (Auto) Baso # (Auto) Seg Neutrophils % Seg Neuts % (Manual) Lymphocytes % (Manual) Seg Neutrophils # Seg Neutrophils # Man Lymphocytes # (Manual) PT INR D-Dimer ABG pH POC ABG pO2 ABG Hemoglobin ABG Oxyhemoglobin ABG Sodium ABG Potassium ABG Chloride ABG Glucose Sodium Potassium Chloride Carbon Dioxide 20 L BUN 88 H Creatinine 4.0 H Glucose 166 H POC Glucose 157 H 172 H Lactic Acid Calcium 6.0 L Phosphorus Magnesium Ferritin AST ALT Ammonia Lactate Dehydrogenase Total Creatine Kinase CK-MB (CK-2) C-Reactive Protein Total Protein Albumin Prealbumin Vitamin B12 Arterial Blood Glucose Arterial Blood Ionized Calcium Urine WBC (Auto) Urine Creatinine Hepatitis C Antibody 07/21/20 07/21/20 07/21/20 17:30 20:59 23:59 WBC RBC Hgb Hct MCV MCH Plt Count Lymph % (Auto) Lymph # (Auto) Baso # (Auto) Seg Neutrophils % Seg Neuts % (Manual) Lymphocytes % (Manual) Seg Neutrophils # Seg Neutrophils # Man Lymphocytes # (Manual) PT INR D-Dimer ABG pH 7.174 L POC ABG pO2 69.3 L ABG Hemoglobin 11.9 L ABG Oxyhemoglobin 91.0 L ABG Sodium 134.0 L ABG Potassium 5.4 H ABG Chloride ABG Glucose 60 L Sodium Potassium Chloride 110.0 H Carbon Dioxide 21 L BUN 72 H Creatinine 2.7 H Glucose 175 H POC Glucose 122 H Lactic Acid Calcium 5.6 L* Phosphorus Magnesium Ferritin AST ALT Ammonia Lactate Dehydrogenase Total Creatine Kinase CK-MB (CK-2) C-Reactive Protein Total Protein Albumin Prealbumin Vitamin B12 Arterial Blood Glucose 60 L Arterial Blood Ionized Calcium 3.6 L Urine WBC (Auto) Urine Creatinine Hepatitis C Antibody 07/21/20 07/22/20 07/22/20 Unknown 02:00 02:03 WBC RBC Hgb Hct MCV MCH Plt Count Lymph % (Auto) Lymph # (Auto) Baso # (Auto) Seg Neutrophils % Seg Neuts % (Manual) Lymphocytes % (Manual) Seg Neutrophils # Seg Neutrophils # Man Lymphocytes # (Manual) PT INR D-Dimer ABG pH POC ABG pO2 ABG Hemoglobin ABG Oxyhemoglobin ABG Sodium ABG Potassium ABG Chloride ABG Glucose Sodium 146 H Potassium Chloride 109.9 H Carbon Dioxide BUN 56 H Creatinine 1.6 H Glucose 125 H POC Glucose 113 H Lactic Acid Calcium 6.5 L D Phosphorus Magnesium Ferritin AST ALT Ammonia Lactate Dehydrogenase Total Creatine Kinase CK-MB (CK-2) C-Reactive Protein Total Protein Albumin Prealbumin Vitamin B12 Arterial Blood Glucose Arterial Blood Ionized Calcium Urine WBC (Auto) 28.0 H Urine Creatinine Hepatitis C Antibody 07/22/20 07/22/20 07/22/20 05:00 06:27 09:44 WBC RBC 3.11 L Hgb Hct MCV 99 H MCH 34 H Plt Count 86 L Lymph % (Auto) Lymph # (Auto) Baso # (Auto) Seg Neutrophils % Seg Neuts % (Manual) Lymphocytes % (Manual) Seg Neutrophils # Seg Neutrophils # Man Lymphocytes # (Manual) PT INR D-Dimer ABG pH POC ABG pO2 ABG Hemoglobin ABG Oxyhemoglobin ABG Sodium ABG Potassium ABG Chloride ABG Glucose Sodium 148 H Potassium Chloride 111.3 H Carbon Dioxide BUN 53 H Creatinine 1.4 H Glucose 135 H POC Glucose 122 H Lactic Acid Calcium 7.2 L Phosphorus Magnesium Ferritin AST ALT Ammonia Lactate Dehydrogenase Total Creatine Kinase CK-MB (CK-2) C-Reactive Protein Total Protein Albumin Prealbumin Vitamin B12 Arterial Blood Glucose Arterial Blood Ionized Calcium Urine WBC (Auto) Urine Creatinine Hepatitis C Antibody 07/22/20 07/22/20 07/22/20 11:00 11:56 21:18 WBC RBC Hgb Hct MCV MCH Plt Count Lymph % (Auto) Lymph # (Auto) Baso # (Auto) Seg Neutrophils % Seg Neuts % (Manual) Lymphocytes % (Manual) Seg Neutrophils # Seg Neutrophils # Man Lymphocytes # (Manual) PT INR D-Dimer ABG pH POC ABG pO2 73.5 L ABG Hemoglobin 11.1 L ABG Oxyhemoglobin ABG Sodium 145.8 H ABG Potassium ABG Chloride 114.0 H ABG Glucose 125 H Sodium Potassium Chloride Carbon Dioxide BUN Creatinine Glucose POC Glucose 126 H 126 H Lactic Acid Calcium Phosphorus Magnesium Ferritin AST ALT Ammonia Lactate Dehydrogenase Total Creatine Kinase CK-MB (CK-2) C-Reactive Protein Total Protein Albumin Prealbumin Vitamin B12 Arterial Blood Glucose 125 H Arterial Blood Ionized Calcium 4.2 L Urine WBC (Auto) Urine Creatinine Hepatitis C Antibody 07/23/20 07/23/20 07/23/20 01:43 04:48 04:48 WBC 13.2 H RBC 3.47 L Hgb Hct MCV 99 H MCH 33 H Plt Count 98 L Lymph % (Auto) Lymph # (Auto) Baso # (Auto) Seg Neutrophils % Seg Neuts % (Manual) Lymphocytes % (Manual) Seg Neutrophils # Seg Neutrophils # Man Lymphocytes # (Manual) PT INR D-Dimer ABG pH POC ABG pO2 ABG Hemoglobin ABG Oxyhemoglobin ABG Sodium ABG Potassium ABG Chloride ABG Glucose Sodium 155 H Potassium 3.1 L D Chloride 112.2 H Carbon Dioxide BUN 34 H Creatinine Glucose 143 H POC Glucose 146 H Lactic Acid Calcium 7.8 L Phosphorus Magnesium Ferritin AST ALT Ammonia Lactate Dehydrogenase Total Creatine Kinase CK-MB (CK-2) C-Reactive Protein Total Protein Albumin Prealbumin Vitamin B12 Arterial Blood Glucose Arterial Blood Ionized Calcium Urine WBC (Auto) Urine Creatinine Hepatitis C Antibody 07/23/20 07/23/20 07/23/20 05:32 11:49 14:33 WBC RBC Hgb Hct MCV MCH Plt Count Lymph % (Auto) Lymph # (Auto) Baso # (Auto) Seg Neutrophils % Seg Neuts % (Manual) Lymphocytes % (Manual) Seg Neutrophils # Seg Neutrophils # Man Lymphocytes # (Manual) PT INR D-Dimer ABG pH POC ABG pO2 ABG Hemoglobin ABG Oxyhemoglobin ABG Sodium ABG Potassium ABG Chloride ABG Glucose Sodium 157 H Potassium 3.5 L Chloride 115.0 H Carbon Dioxide 32 H BUN 34 H Creatinine Glucose 119 H POC Glucose 149 H 112 H Lactic Acid Calcium Phosphorus Magnesium Ferritin AST ALT Ammonia Lactate Dehydrogenase Total Creatine Kinase CK-MB (CK-2) C-Reactive Protein Total Protein Albumin Prealbumin Vitamin B12 Arterial Blood Glucose Arterial Blood Ionized Calcium Urine WBC (Auto) Urine Creatinine Hepatitis C Antibody 07/23/20 07/23/20 07/23/20 17:33 17:33 17:33 WBC RBC Hgb Hct MCV MCH Plt Count Lymph % (Auto) Lymph # (Auto) Baso # (Auto) Seg Neutrophils % Seg Neuts % (Manual) Lymphocytes % (Manual) Seg Neutrophils # Seg Neutrophils # Man Lymphocytes # (Manual) PT INR D-Dimer ABG pH POC ABG pO2 ABG Hemoglobin ABG Oxyhemoglobin ABG Sodium ABG Potassium ABG Chloride ABG Glucose Sodium Potassium Chloride Carbon Dioxide BUN Creatinine Glucose POC Glucose Lactic Acid Calcium Phosphorus 1.80 L Magnesium Ferritin AST 158 H ALT 96 H Ammonia Lactate Dehydrogenase Total Creatine Kinase CK-MB (CK-2) C-Reactive Protein Total Protein 6.2 L Albumin 2.9 L Prealbumin Vitamin B12 Arterial Blood Glucose Arterial Blood Ionized Calcium Urine WBC (Auto) Urine Creatinine Hepatitis C Antibody Reactive A 07/24/20 07/24/20 07/24/20 02:17 05:20 05:29 WBC RBC Hgb Hct MCV MCH Plt Count Lymph % (Auto) Lymph # (Auto) Baso # (Auto) Seg Neutrophils % Seg Neuts % (Manual) Lymphocytes % (Manual) Seg Neutrophils # Seg Neutrophils # Man Lymphocytes # (Manual) PT INR D-Dimer ABG pH POC ABG pO2 ABG Hemoglobin ABG Oxyhemoglobin ABG Sodium ABG Potassium ABG Chloride ABG Glucose Sodium 163 H* Potassium Chloride 118.6 H Carbon Dioxide BUN 33 H Creatinine Glucose 118 H POC Glucose 106 H 111 H Lactic Acid Calcium 7.9 L Phosphorus Magnesium Ferritin AST ALT Ammonia Lactate Dehydrogenase Total Creatine Kinase CK-MB (CK-2) C-Reactive Protein Total Protein Albumin Prealbumin Vitamin B12 Arterial Blood Glucose Arterial Blood Ionized Calcium Urine WBC (Auto) Urine Creatinine Hepatitis C Antibody 07/24/20 07/24/20 07/24/20 08:00 11:52 14:43 WBC RBC Hgb Hct MCV MCH Plt Count Lymph % (Auto) Lymph # (Auto) Baso # (Auto) Seg Neutrophils % Seg Neuts % (Manual) Lymphocytes % (Manual) Seg Neutrophils # Seg Neutrophils # Man Lymphocytes # (Manual) PT INR D-Dimer ABG pH POC ABG pO2 ABG Hemoglobin ABG Oxyhemoglobin ABG Sodium ABG Potassium ABG Chloride ABG Glucose Sodium 155 H Potassium 3.5 L Chloride 112.7 H Carbon Dioxide 32 H BUN 28 H Creatinine Glucose 125 H POC Glucose 109 H 118 H Lactic Acid Calcium 8.2 L Phosphorus Magnesium Ferritin AST ALT Ammonia Lactate Dehydrogenase Total Creatine Kinase CK-MB (CK-2) C-Reactive Protein Total Protein Albumin Prealbumin Vitamin B12 Arterial Blood Glucose Arterial Blood Ionized Calcium Urine WBC (Auto) Urine Creatinine Hepatitis C Antibody 07/24/20 07/24/20 07/24/20 16:52 19:33 23:02 WBC RBC Hgb Hct MCV MCH Plt Count Lymph % (Auto) Lymph # (Auto) Baso # (Auto) Seg Neutrophils % Seg Neuts % (Manual) Lymphocytes % (Manual) Seg Neutrophils # Seg Neutrophils # Man Lymphocytes # (Manual) PT INR D-Dimer ABG pH 7.523 H POC ABG pO2 76.4 L ABG Hemoglobin 10.3 L ABG Oxyhemoglobin ABG Sodium 151.2 H ABG Potassium 2.4 L ABG Chloride 111.0 H ABG Glucose 125 H Sodium Potassium Chloride Carbon Dioxide BUN Creatinine Glucose POC Glucose 111 H 127 H Lactic Acid Calcium Phosphorus Magnesium Ferritin AST ALT Ammonia Lactate Dehydrogenase Total Creatine Kinase CK-MB (CK-2) C-Reactive Protein Total Protein Albumin Prealbumin Vitamin B12 Arterial Blood Glucose 125 H Arterial Blood Ionized Calcium 4.3 L Urine WBC (Auto) Urine Creatinine Hepatitis C Antibody 07/25/20 07/25/20 07/25/20 02:12 05:15 05:15 WBC 12.0 H RBC 3.11 L Hgb Hct MCV 99 H MCH 33 H Plt Count 77 L Lymph % (Auto) 9.5 L Lymph # (Auto) 1.1 L Baso # (Auto) Seg Neutrophils % 88.2 H Seg Neuts % (Manual) Lymphocytes % (Manual) Seg Neutrophils # 10.6 H Seg Neutrophils # Man Lymphocytes # (Manual) PT INR D-Dimer ABG pH POC ABG pO2 ABG Hemoglobin ABG Oxyhemoglobin ABG Sodium ABG Potassium ABG Chloride ABG Glucose Sodium 152 H Potassium 2.6 L* D Chloride 109.5 H Carbon Dioxide 34 H BUN 21 H Creatinine 0.5 L Glucose 124 H POC Glucose 124 H Lactic Acid Calcium 7.7 L Phosphorus Magnesium Ferritin AST ALT Ammonia Lactate Dehydrogenase Total Creatine Kinase CK-MB (CK-2) C-Reactive Protein Total Protein Albumin Prealbumin Vitamin B12 Arterial Blood Glucose Arterial Blood Ionized Calcium Urine WBC (Auto) Urine Creatinine Hepatitis C Antibody 07/25/20 07/25/20 07/25/20 05:42 14:35 14:35 WBC RBC Hgb Hct MCV MCH Plt Count Lymph % (Auto) Lymph # (Auto) Baso # (Auto) Seg Neutrophils % Seg Neuts % (Manual) Lymphocytes % (Manual) Seg Neutrophils # Seg Neutrophils # Man Lymphocytes # (Manual) PT INR D-Dimer ABG pH POC ABG pO2 ABG Hemoglobin ABG Oxyhemoglobin ABG Sodium ABG Potassium ABG Chloride ABG Glucose Sodium 151 H Potassium 3.4 L D Chloride 109.7 H Carbon Dioxide 31 H BUN Creatinine 0.5 L Glucose POC Glucose 108 H Lactic Acid Calcium 7.7 L Phosphorus 1.70 L Magnesium Ferritin AST ALT Ammonia Lactate Dehydrogenase Total Creatine Kinase CK-MB (CK-2) C-Reactive Protein Total Protein Albumin Prealbumin Vitamin B12 Arterial Blood Glucose Arterial Blood Ionized Calcium Urine WBC (Auto) Urine Creatinine Hepatitis C Antibody 07/25/20 07/25/20 07/26/20 18:29 21:07 04:00 WBC RBC Hgb Hct MCV MCH Plt Count Lymph % (Auto) Lymph # (Auto) Baso # (Auto) Seg Neutrophils % Seg Neuts % (Manual) Lymphocytes % (Manual) Seg Neutrophils # Seg Neutrophils # Man Lymphocytes # (Manual) PT INR D-Dimer ABG pH POC ABG pO2 ABG Hemoglobin ABG Oxyhemoglobin ABG Sodium ABG Potassium ABG Chloride ABG Glucose Sodium 147 H 146 H Potassium 3.3 L D Chloride Carbon Dioxide 35 H BUN Creatinine 0.4 L 0.4 L Glucose 122 H 114 H POC Glucose 120 H Lactic Acid Calcium 7.5 L 7.3 L Phosphorus Magnesium Ferritin AST 74 H ALT 79 H Ammonia Lactate Dehydrogenase Total Creatine Kinase CK-MB (CK-2) C-Reactive Protein Total Protein 5.0 L Albumin 2.5 L Prealbumin Vitamin B12 Arterial Blood Glucose Arterial Blood Ionized Calcium Urine WBC (Auto) Urine Creatinine Hepatitis C Antibody 07/26/20 07/26/20 07/26/20 07:14 14:50 18:32 WBC RBC Hgb Hct MCV MCH Plt Count Lymph % (Auto) Lymph # (Auto) Baso # (Auto) Seg Neutrophils % Seg Neuts % (Manual) Lymphocytes % (Manual) Seg Neutrophils # Seg Neutrophils # Man Lymphocytes # (Manual) PT INR D-Dimer ABG pH POC ABG pO2 ABG Hemoglobin ABG Oxyhemoglobin ABG Sodium ABG Potassium ABG Chloride ABG Glucose Sodium Potassium Chloride Carbon Dioxide BUN Creatinine Glucose POC Glucose 44 L Lactic Acid Calcium Phosphorus Magnesium Ferritin AST ALT Ammonia Lactate Dehydrogenase Total Creatine Kinase CK-MB (CK-2) C-Reactive Protein Total Protein Albumin Prealbumin Vitamin B12 1235 H Arterial Blood Glucose Arterial Blood Ionized Calcium Urine WBC (Auto) Urine Creatinine 40.4 H Hepatitis C Antibody 07/26/20 07/26/20 07/26/20 18:34 23:11 Unknown WBC 12.6 H RBC 2.92 L Hgb 9.8 L Hct 29.3 L MCV 100 H MCH 34 H Plt Count 73 L Lymph % (Auto) Lymph # (Auto) Baso # (Auto) Seg Neutrophils % Seg Neuts % (Manual) Lymphocytes % (Manual) Seg Neutrophils # Seg Neutrophils # Man Lymphocytes # (Manual) PT INR D-Dimer ABG pH POC ABG pO2 ABG Hemoglobin ABG Oxyhemoglobin ABG Sodium ABG Potassium ABG Chloride ABG Glucose Sodium Potassium Chloride Carbon Dioxide BUN Creatinine Glucose POC Glucose 106 H 112 H Lactic Acid Calcium Phosphorus Magnesium Ferritin AST ALT Ammonia Lactate Dehydrogenase Total Creatine Kinase CK-MB (CK-2) C-Reactive Protein Total Protein Albumin Prealbumin Vitamin B12 Arterial Blood Glucose Arterial Blood Ionized Calcium Urine WBC (Auto) Urine Creatinine Hepatitis C Antibody 07/27/20 07/27/20 07/27/20 04:00 05:17 11:33 WBC RBC Hgb Hct MCV MCH Plt Count Lymph % (Auto) Lymph # (Auto) Baso # (Auto) Seg Neutrophils % Seg Neuts % (Manual) Lymphocytes % (Manual) Seg Neutrophils # Seg Neutrophils # Man Lymphocytes # (Manual) PT INR D-Dimer ABG pH POC ABG pO2 ABG Hemoglobin ABG Oxyhemoglobin ABG Sodium ABG Potassium ABG Chloride ABG Glucose Sodium Potassium 3.2 L Chloride Carbon Dioxide 37 H BUN Creatinine 0.3 L Glucose 120 H POC Glucose 123 H 125 H Lactic Acid Calcium 7.4 L Phosphorus Magnesium 1.30 L Ferritin AST ALT Ammonia Lactate Dehydrogenase Total Creatine Kinase CK-MB (CK-2) C-Reactive Protein Total Protein Albumin Prealbumin Vitamin B12 Arterial Blood Glucose Arterial Blood Ionized Calcium Urine WBC (Auto) Urine Creatinine Hepatitis C Antibody 07/27/20 07/27/20 07/27/20 16:11 18:35 18:35 WBC RBC Hgb Hct MCV MCH Plt Count Lymph % (Auto) Lymph # (Auto) Baso # (Auto) Seg Neutrophils % Seg Neuts % (Manual) Lymphocytes % (Manual) Seg Neutrophils # Seg Neutrophils # Man Lymphocytes # (Manual) PT INR D-Dimer ABG pH POC ABG pO2 ABG Hemoglobin ABG Oxyhemoglobin ABG Sodium ABG Potassium ABG Chloride ABG Glucose Sodium Potassium Chloride Carbon Dioxide BUN Creatinine Glucose POC Glucose 121 H Lactic Acid Calcium Phosphorus Magnesium Ferritin AST ALT Ammonia Lactate Dehydrogenase Total Creatine Kinase CK-MB (CK-2) C-Reactive Protein Total Protein Albumin Prealbumin 0.079 L Vitamin B12 1123 H Arterial Blood Glucose Arterial Blood Ionized Calcium Urine WBC (Auto) Urine Creatinine Hepatitis C Antibody 07/27/20 07/27/20 07/28/20 23:46 Unknown 01:05 WBC 11.2 H RBC 3.02 L Hgb Hct 30.1 L MCV 100 H MCH 33 H Plt Count 77 L Lymph % (Auto) Lymph # (Auto) Baso # (Auto) Seg Neutrophils % Seg Neuts % (Manual) Lymphocytes % (Manual) Seg Neutrophils # Seg Neutrophils # Man Lymphocytes # (Manual) PT INR D-Dimer ABG pH POC ABG pO2 ABG Hemoglobin ABG Oxyhemoglobin ABG Sodium ABG Potassium ABG Chloride ABG Glucose Sodium Potassium Chloride Carbon Dioxide BUN Creatinine Glucose POC Glucose 161 H 188 H Lactic Acid Calcium Phosphorus Magnesium Ferritin AST ALT Ammonia Lactate Dehydrogenase Total Creatine Kinase CK-MB (CK-2) C-Reactive Protein Total Protein Albumin Prealbumin Vitamin B12 Arterial Blood Glucose Arterial Blood Ionized Calcium Urine WBC (Auto) Urine Creatinine Hepatitis C Antibody 07/28/20 07/28/20 07/28/20 01:41 01:45 01:45 WBC 17.1 H RBC 2.79 L Hgb 9.2 L Hct 28.2 L MCV 101 H MCH 33 H Plt Count 102 L Lymph % (Auto) Lymph # (Auto) Baso # (Auto) Seg Neutrophils % Seg Neuts % (Manual) 95.0 H Lymphocytes % (Manual) 2.0 L Seg Neutrophils # Seg Neutrophils # Man 16.2 H Lymphocytes # (Manual) 0.3 L PT INR D-Dimer ABG pH POC ABG pO2 76.7 L ABG Hemoglobin 9.5 L ABG Oxyhemoglobin ABG Sodium ABG Potassium ABG Chloride ABG Glucose 179 H Sodium 147 H Potassium Chloride Carbon Dioxide 33 H BUN 22 H Creatinine Glucose 190 H POC Glucose Lactic Acid Calcium 6.9 L Phosphorus Magnesium Ferritin AST ALT Ammonia Lactate Dehydrogenase Total Creatine Kinase CK-MB (CK-2) C-Reactive Protein Total Protein 4.6 L Albumin 2.2 L Prealbumin Vitamin B12 Arterial Blood Glucose 179 H Arterial Blood Ionized Calcium 4.2 L Urine WBC (Auto) Urine Creatinine Hepatitis C Antibody 07/28/20 07/28/20 07/28/20 04:40 05:20 06:06 WBC RBC Hgb Hct MCV MCH Plt Count Lymph % (Auto) Lymph # (Auto) Baso # (Auto) Seg Neutrophils % Seg Neuts % (Manual) Lymphocytes % (Manual) Seg Neutrophils # Seg Neutrophils # Man Lymphocytes # (Manual) PT INR D-Dimer ABG pH 7.475 H POC ABG pO2 ABG Hemoglobin 10.7 L ABG Oxyhemoglobin ABG Sodium ABG Potassium ABG Chloride ABG Glucose 146 H Sodium Potassium Chloride Carbon Dioxide 31 H BUN 24 H Creatinine 0.4 L D Glucose 106 H POC Glucose 159 H Lactic Acid Calcium 7.6 L Phosphorus Magnesium Ferritin AST ALT Ammonia Lactate Dehydrogenase Total Creatine Kinase 227 H CK-MB (CK-2) C-Reactive Protein Total Protein Albumin Prealbumin Vitamin B12 Arterial Blood Glucose 146 H Arterial Blood Ionized Calcium 4.2 L Urine WBC (Auto) Urine Creatinine Hepatitis C Antibody 07/28/20 07/28/20 07/29/20 10:30 17:53 04:00 WBC 17.0 H RBC 3.16 L 2.43 L Hgb 8.3 L Hct 24.6 L D MCV 101 H 101 H MCH 34 H 34 H Plt Count 124 L 113 L Lymph % (Auto) Lymph # (Auto) Baso # (Auto) Seg Neutrophils % Seg Neuts % (Manual) Lymphocytes % (Manual) Seg Neutrophils # Seg Neutrophils # Man Lymphocytes # (Manual) PT INR D-Dimer ABG pH POC ABG pO2 ABG Hemoglobin ABG Oxyhemoglobin ABG Sodium ABG Potassium ABG Chloride ABG Glucose Sodium Potassium Chloride Carbon Dioxide BUN Creatinine Glucose POC Glucose 118 H Lactic Acid Calcium Phosphorus Magnesium Ferritin AST ALT Ammonia Lactate Dehydrogenase Total Creatine Kinase CK-MB (CK-2) C-Reactive Protein Total Protein Albumin Prealbumin Vitamin B12 Arterial Blood Glucose Arterial Blood Ionized Calcium Urine WBC (Auto) Urine Creatinine Hepatitis C Antibody 07/29/20 07/29/20 07/29/20 04:00 04:50 04:50 WBC RBC Hgb Hct MCV MCH Plt Count Lymph % (Auto) Lymph # (Auto) Baso # (Auto) Seg Neutrophils % Seg Neuts % (Manual) Lymphocytes % (Manual) Seg Neutrophils # Seg Neutrophils # Man Lymphocytes # (Manual) PT INR D-Dimer ABG pH 7.461 H POC ABG pO2 ABG Hemoglobin 8.9 L ABG Oxyhemoglobin ABG Sodium ABG Potassium ABG Chloride ABG Glucose 128 H Sodium Potassium Chloride Carbon Dioxide 34 H BUN 19 H Creatinine 0.4 L Glucose 115 H POC Glucose Lactic Acid Calcium 7.7 L Phosphorus Magnesium 1.60 L Ferritin AST ALT Ammonia Lactate Dehydrogenase Total Creatine Kinase CK-MB (CK-2) C-Reactive Protein Total Protein Albumin Prealbumin Vitamin B12 Arterial Blood Glucose 128 H Arterial Blood Ionized Calcium 4.3 L Urine WBC (Auto) Urine Creatinine Hepatitis C Antibody
[2020-07-29] MEDS ORDERED: GLYCOPYRROLATE 0.4 MG/2 ML INJ IV PRN (13:19)
--- NOTE | 2020-07-29 14:41 | Electrocardiograph Report ---
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
[2020-07-29] MEDS ORDERED: VANCOMYCIN 750 MG in SODIUM CHLORIDE 0.9% 250ML 250 ML IV SCH (15:00)
--- NOTE | 2020-07-29 16:35 | Progress Note ---
History Interval history: This is a 65-year-old female with hepatitis C, migraines and hypertension who had presented to the emergency department on 07/21 with altered mental status after being found on the floor by family members. Upon evaluation in the emergency department patient was found to be hypothermic and hypotensive with leukocytosis and acute kidney failure consistent with sepsis. Patient also had elevated D- dimer, metabolic encephalopathy, lactic acidosis, hyperkalemia and rhabdomyolysis. Patient was admitted to the hospital service with sepsis, UTI, DOREEN, rhabdomyolysis, acute respiratory failure, metabolic acidosis, acute metabolic encephalopathy. Nephrology, infectious disease and critical care consulted. Sepsis Acute respiratory failure S/p cardiac arrest Urinary tract infection with Klebsiella pneumonia Rhabdomyolysis Thrombocytopenia Leukocytosis Acute metabolic encephalopathy Hypertension Hepatitis C Moderate pulmonary hypertension 07/21: Patient received a total of 4 L normal saline, was started on vasopressin and remains on BiPAP. Patient was on Levophed and D5 normal saline and a bicarbonate drip. D5 normal saline was discontinued. We will obtain a p.m. BMP and serial BMPs. Patient was contacted and the patient is now on AND/DNR. 07/22: Patient received a total of 12 L IV bolus and has been weaned off of Levophed and vasopressin. Patient's kidney function has improved drastically. Patient has been started on scheduled Haldol and we obtained a baseline ECG.she was started on maintenance fluid overnight which was stopped today. Echocardiogram shows moderate pulmonary hypertension. [facility] would like to obtain a CT chest when more stable. RT is titrating BiPAP FiO2 as tolerated and we will assess for nutrition once off BiPAP.Patient now has hypernatremia, hyperchloremia and her BUN/creatinine has decreased to 53/1.4. 07/23/2020; patient is still on BiPAP, agitated and confused. Kidney function improved. Patient was on Haldol and Geodon which did not help. Put the patient on Ativan as needed this morning. I have a long discussion with her yesterday and she does not want any heroic measures to be done. Does not want NG tube to be placed. Patient is DNR/DNI. Patient has UTI and on cefepime. Patient prognosis is guarded. Patient has hypernatremia and placed on D5 0.2% normal saline but no improvement. Hypokalemia, repleted according to electrolyte protocol. Patient prognosis is very poor. Patient is gasping for air. 07/24/2020; patient is on BiPAP, agitated and confused. Sodium is trending up and 163 this morning despite the patient is on D5 W at 125. Family declined NG tube. Patient's family states patient is not alcoholic. UDS is positive for opioid. Patient has delirium and supportive care. On alcohol withdrawal protocol. Patient has UTI and continue with cefepime. Urine culture noted. 07/25: This morning the time my examination patient is on BiPAP therapy and has NG tube to tube feedings. Patient has hypomagnesemic which was repleted and severely hypokalemic which was also repleted. Patient has hypernatremia and her leukocytosis has improved. Urine culture speciated to Klebsiella and antibiotic regimen has been modified per ID. 07/26: PICC placement for PPN and RT is weaning BiPAP. At the time of my exam she was on 12/12 at 85% FiO2. Patient was hypokalemic today which was repleted. Patient remains hypokalemic in the HIT panel is pending. We will obtain a neurology dietitian consultant B12/folate. LTACH placement is pending per . Patient's mentation is better today and no acute events reported overnight. 07/27: Neurology would like to obtain an EEG and MRI brain without contrast and she completed antibiotic therapy today. Patient noted her increased diuresis which could be immobilizing her volume resuscitation, ATN diuresis or SIADH we will obtain a CT of her head with contrast. RT continues to wean BiPAP therapy. No acute events reported overnight. Patient is hypokalemic and hypomagnesemic today which was repleted. She remains on PPN. 07/28: Overnight the patient has a respiratory and cardiac arrest and a mucous plug was removed. She was intubated and placed on ventilatory support. She is on levophed and sedated with fentanyl. Patient has a MRI B which is pending. [facility] plans to bronch her tomorrow and would like to obtain a CT chest. Patient still feeding will be started on PPN is completed. She will receive LR bolus to replace her output over the past 24 hours. I spoke to the patient's and he has changed her CODE STATUS to AND/DNR which has been updated in the computer and care team has been informed. 07/29: Patient's has chosen to withdraw care and we transition the patient to comfort care per their wishes. Patient has been extubated. Patient will be transferred to the floor with telemetry monitoring. Hospitalist Physical - Constitutional Vitals: Temp Pulse Resp BP Pulse Ox 98.9 F 74 20 109/58 95 07/29/20 16:00 07/29/20 14:00 07/29/20 14:00 07/29/20 14:00 07/29/20 14:00 General appearance: Present: no acute distress, other (intubated on MV, resting comfortably) - EENT ENT: poor dentition - Neck Neck: Present: supple - Respiratory Respiratory effort: normal Respiratory: bilateral: diminished - Cardiovascular Rhythm: regular Heart Sounds: Present: S1 & S2. Absent: systolic murmur, diastolic murmur - Extremities Extremities: no ischemia, pulses intact, pulses symmetrical, normal temperature, normal color Peripheral Pulses: within normal limits - Abdominal General gastrointestinal: soft, non-tender, non-distended, normal bowel sounds - Integumentary Integumentary: Present: warm, dry - Psychiatric Psychiatric: other (unresponsive) HEART Score - HEART Score Troponin: Troponin T 0.026 ng/mL (0.00-0.029) 07/20/20 19:27 Results - Labs CBC & Chem 7: 07/29/20 04:00 07/29/20 04:50 Labs: Laboratory Last Values WBC 10.9 K/mm3 (4.5-11.0) 07/29/20 04:00 RBC 2.43 M/mm3 (3.65-5.03) L 07/29/20 04:00 Hgb 8.3 gm/dl (10.1-14.3) L 07/29/20 04:00 Hct 24.6 % (30.3-42.9) L D 07/29/20 04:00 MCV 101 fl (79-97) H 07/29/20 04:00 MCH 34 pg (28-32) H 07/29/20 04:00 MCHC 34 % (30-34) 07/29/20 04:00 RDW 13.4 % (13.2-15.2) 07/29/20 04:00 Plt Count 113 K/mm3 (140-440) L 07/29/20 04:00 Lymph % (Auto) 9.5 % (13.4-35.0) L 07/25/20 05:15 [place] % (Auto) 2.0 % (0.0-7.3) 07/25/20 05:15 Eos % (Auto) 0.2 % (0.0-4.3) 07/25/20 05:15 Baso % (Auto) 0.1 % (0.0-1.8) 07/25/20 05:15 Lymph # (Auto) 1.1 K/mm3 (1.2-5.4) L 07/25/20 05:15 [place] # (Auto) 0.2 K/mm3 (0.0-0.8) 07/25/20 05:15 Eos # (Auto) 0.0 K/mm3 (0.0-0.4) 07/25/20 05:15 Baso # (Auto) 0.0 K/mm3 (0.0-0.1) 07/25/20 05:15 Add Manual Diff Complete 07/28/20 01:45 Total Counted 100 07/28/20 01:45 Seg Neutrophils % [employer] 07/28/20 01:45 Seg Neuts % (Manual) 95.0 % (40.0-70.0) H 07/28/20 01:45 Band Neutrophils % 32.0 % 07/21/20 04:00 Lymphocytes % (Manual) 2.0 % (13.4-35.0) L 07/28/20 01:45 Monocytes % (Manual) 3.0 % (0.0-7.3) 07/28/20 01:45 Nucleated RBC % Not Reportable 07/28/20 01:45 Seg Neutrophils # 10.6 K/mm3 (1.8-7.7) H 07/25/20 05:15 Seg Neutrophils # Man 16.2 K/mm3 (1.8-7.7) H 07/28/20 01:45 Band Neutrophils # 0.0 K/mm3 07/28/20 01:45 Lymphocytes # (Manual) 0.3 K/mm3 (1.2-5.4) L 07/28/20 01:45 Abs React Lymphs (Man) 0.0 K/mm3 07/28/20 01:45 Monocytes # (Manual) 0.5 K/mm3 (0.0-0.8) 07/28/20 01:45 Eosinophils # (Manual) 0.0 K/mm3 (0.0-0.4) 07/28/20 01:45 Basophils # (Manual) 0.0 K/mm3 (0.0-0.1) 07/28/20 01:45 Metamyelocytes # 0.0 K/mm3 07/28/20 01:45 Myelocytes # 0.0 K/mm3 07/28/20 01:45 Promyelocytes # 0.0 K/mm3 07/28/20 01:45 Blast Cells # 0.0 K/mm3 07/28/20 01:45 WBC Morphology Not Reportable 07/28/20 01:45 Hypersegmented Neuts Not Reportable 07/28/20 01:45 Hyposegmented Neuts Not Reportable 07/28/20 01:45 Hypogranular Neuts Not Reportable 07/28/20 01:45 Smudge Cells Not Reportable 07/28/20 01:45 Toxic Granulation Not Reportable 07/28/20 01:45 Toxic Vacuolation Not Reportable 07/28/20 01:45 Dohle Bodies Not Reportable 07/28/20 01:45 Pelger-Huet Anomaly Not Reportable 07/28/20 01:45 Elia Rods Not Reportable 07/28/20 01:45 Platelet Estimate Consistent w auto 07/28/20 01:45 Clumped Platelets Not Reportable 07/28/20 01:45 Plt Clumps, EDTA Not Reportable 07/28/20 01:45 Large Platelets Not Reportable 07/28/20 01:45 Giant Platelets Not Reportable 07/28/20 01:45 Platelet Satelliting Not Reportable 07/28/20 01:45 Plt Morphology Comment Not Reportable 07/28/20 01:45 RBC Morphology Not Reportable 07/28/20 01:45 Dimorphic RBCs Not Reportable 07/28/20 01:45 Polychromasia Few 07/28/20 01:45 Hypochromasia Not Reportable 07/28/20 01:45 Poikilocytosis Not Reportable 07/28/20 01:45 Anisocytosis Few 07/28/20 01:45 Microcytosis Not Reportable 07/28/20 01:45 Macrocytosis Not Reportable 07/28/20 01:45 Spherocytes Not Reportable 07/28/20 01:45 Pappenheimer Bodies Not Reportable 07/28/20 01:45 Sickle Cells Not Reportable 07/28/20 01:45 Target Cells Not Reportable 07/28/20 01:45 Tear Drop Cells Not Reportable 07/28/20 01:45 Ovalocytes Not Reportable 07/28/20 01:45 Helmet Cells Not Reportable 07/28/20 01:45 [place] Bodies Not Reportable 07/28/20 01:45 [place] Rings Not Reportable 07/28/20 01:45 Yermo Cells Not Reportable 07/28/20 01:45 Bite Cells Not Reportable 07/28/20 01:45 Crenated Cell Not Reportable 07/28/20 01:45 Elliptocytes Not Reportable 07/28/20 01:45 Acanthocytes (Spur) Not Reportable 07/28/20 01:45 Rouleaux Not Reportable 07/28/20 01:45 Hemoglobin C Crystals Not Reportable 07/28/20 01:45 Schistocytes Not Reportable 07/28/20 01:45 Malaria parasites Not Reportable 07/28/20 01:45 Junior Bodies Not Reportable 07/28/20 01:45 Hem Pathologist Commnt No 07/28/20 01:45 PT 20.1 Sec. (12.2-14.9) H 07/20/20 19:32 INR 1.72 (0.87-1.13) H 07/20/20 19:32 APTT 33.7 Sec. (24.2-36.6) 07/20/20 19:32 D-Dimer 2098.49 ng/mlDDU (0-234) H 07/20/20 21:59 Heparin Anti-Xa, Unfract Negative (Negative) 07/25/20 14:35 ABG pH 7.461 (7.320-7.450) H 07/29/20 04:00 POC ABG pCO2 46.1 mmHg (32.0-48.0) 07/29/20 04:00 POC ABG pO2 101.1 mmHg (83-108) 07/29/20 04:00 POC ABG HCO3 32.1 07/29/20 04:00 ABG O2 Saturation 97.6 (0-100) 07/29/20 04:00 POC ABG Base Excess 7.5 07/29/20 04:00 ABG Hemoglobin 8.9 (12.0-17.5) L 07/29/20 04:00 ABG Oxyhemoglobin 95.9 (94-98) 07/29/20 04:00 ABG Methemoglobin 0.3 (0.0-1.5) 07/29/20 04:00 ABG Sodium 139.4 mmol/L (136.0-145.0) 07/29/20 04:00 ABG Potassium 3.8 mmol/L (3.40-4.50) 07/29/20 04:00 ABG Chloride 106.0 mmol/L (98-107) 07/29/20 04:00 ABG Glucose 128 mg/dL (65-95) H 07/29/20 04:00 Carboxyhemoglobin 1.4 (0.5-1.5) 07/29/20 04:00 FiO2 % 35 07/29/20 04:00 Sodium 144 mmol/L (137-145) 07/29/20 04:50 Potassium 4.1 mmol/L (3.6-5.0) 07/29/20 04:50 Chloride 105.6 mmol/L (98-107) 07/29/20 04:50 Carbon Dioxide 34 mmol/L (22-30) H 07/29/20 04:50 Anion Gap 9 mmol/L 07/29/20 04:50 BUN 19 mg/dL (7-17) H 07/29/20 04:50 Creatinine 0.4 mg/dL (0.6-1.2) L 07/29/20 04:50 Estimated GFR > 60 ml/min 07/29/20 04:50 BUN/Creatinine Ratio 48 % 07/29/20 04:50 Glucose 115 mg/dL (65-100) H 07/29/20 04:50 POC Glucose 112 mg/dL (70-105) H 07/29/20 11:21 Lactic Acid 1.90 mmol/L (0.7-2.0) 07/20/20 21:59 Calcium 7.7 mg/dL (8.4-10.2) L 07/29/20 04:50 Phosphorus 2.70 mg/dL (2.5-4.5) 07/29/20 04:50 Magnesium 1.60 mg/dL (1.7-2.3) L 07/29/20 04:50 Ferritin 1648.0 ng/mL (10.0-200.0) H 07/20/20 21:59 Total Bilirubin 0.20 mg/dL (0.1-1.2) 07/28/20 01:45 Direct Bilirubin < 0.2 mg/dL (0-0.2) 07/23/20 17:33 Indirect Bilirubin 0.3 mg/dL 07/23/20 17:33 AST 26 units/L (5-40) 07/28/20 01:45 ALT 36 units/L (7-56) 07/28/20 01:45 Alkaline Phosphatase 80 units/L (35-129) 07/28/20 01:45 Ammonia 39.0 umol/L (25-60) 07/23/20 17:33 Lactate Dehydrogenase 732 units/L (91-180) H 07/20/20 21:59 Total Creatine Kinase 227 units/L (30-135) H 07/28/20 04:40 CK-MB (CK-2) 289.0 ng/mL (0.0-4.0) H 07/20/20 19:27 CK-MB (CK-2) Rel Index 2.0 (0-4) 07/20/20 19:27 Troponin T 0.026 ng/mL (0.00-0.029) 07/20/20 19:27 C-Reactive Protein 37.90 mg/dL (0.00-1.30) H 07/20/20 21:59 Total Protein 4.6 g/dL (6.3-8.2) L 07/28/20 01:45 Albumin 2.2 g/dL (3.9-5) L 07/28/20 01:45 Albumin/Globulin Ratio 0.9 % 07/28/20 01:45 Prealbumin 0.079 g/L (0.200-0.400) L 07/27/20 18:35 Triglycerides 109 mg/dL (2-149) 07/27/20 04:00 Vitamin B12 1123 pg/mL (211-911) H 07/27/20 18:35 Folate 18.55 ng/mL (7.3-26.0) 07/27/20 18:35 Procalcitonin 40.67 ng/mL (<0.15) 07/20/20 21:59 TSH 1.130 mlU/mL (0.270-4.200) 07/27/20 18:35 Free T4 0.87 ng/dL (0.76-1.46) 07/20/20 19:27 Arterial Blood Glucose 128 mg/dL (65-95) H 07/29/20 04:00 Arterial Blood Ionized Calcium 4.3 mg/dL (4.6-5.3) L 07/29/20 04:00 Urine Color Yellow (Yellow) 07/21/20 Unknown Urine Turbidity Cloudy (Clear) 07/21/20 Unknown Urine pH 5.0 (5.0-7.0) 07/21/20 Unknown Ur Specific [place] 1.013 (1.003-1.030) 07/21/20 Unknown Urine Protein 30 mg/dl mg/dL (Negative) 07/21/20 Unknown Urine Glucose (UA) Neg mg/dL (Negative) 07/21/20 Unknown Urine Ketones Neg mg/dL (Negative) 07/21/20 Unknown Urine Blood Lg (Negative) 07/21/20 Unknown Urine Nitrite Neg (Negative) 07/21/20 Unknown Urine Bilirubin Neg (Negative) 07/21/20 Unknown Urine Urobilinogen < 2.0 mg/dL (<2.0) 07/21/20 Unknown Ur Leukocyte Esterase Sm (Negative) 07/21/20 Unknown Urine WBC (Auto) 28.0 /HPF (0.0-6.0) H 07/21/20 Unknown Urine RBC (Auto) 89.0 /HPF (0.0-6.0) 07/21/20 Unknown U Epithel Cells (Auto) 1.0 /HPF (0-13.0) 07/21/20 Unknown Urine WBC Clumps 2+ /HPF 07/21/20 Unknown Hyaline Casts 9 /LPF 07/21/20 Unknown Urine Mucus Few /HPF 07/21/20 Unknown Urine Yeast (Budding) 3+ /HPF 07/20/20 19:52 Urine Eosinophils None seen (None Seen) 07/21/20 Unknown Urine Creatinine 40.4 mg/dL (0.1-20.0) H 07/26/20 07:14 Urine Sodium 10 mmol/L 07/21/20 Unknown Urine Potassium 32.12 mmol/L 07/26/20 07:14 Urine Chloride 119.0 mmolL (110-250) 07/26/20 07:14 Random Vancomycin 4.7 ug/mL (0-40.0) 07/22/20 06:27 Urine Opiates Screen Positive 07/20/20 19:52 Urine Methadone Screen Negative 07/20/20 19:52 Ur Barbiturates Screen Negative 07/20/20 19:52 Ur Phencyclidine Scrn Negative 07/20/20 19:52 Ur Amphetamines Screen Negative 07/20/20 19:52 U Benzodiazepines Scrn Positive 07/20/20 19:52 Urine Cocaine Screen Negative 07/20/20 19:52 U Marijuana (THC) Screen Negative 07/20/20 19:52 Drugs of Abuse Note Disclamer 07/20/20 19:52 Proteinase 3 (PR3) Ab <1.0 AI (<1.0) 07/21/20 09:56 Myeloperoxidase Ab <1.0 AI (<1.0) 07/21/20 09:56 Heparin-induced Plt Ab Negative (Negative) 07/25/20 14:35 UF Heparin High Dose 0 % Release 07/25/20 14:35 VIKTOR UFH Low Dose 0.1 0 % Release 07/25/20 14:35 VIKTOR UFH Low Dose 0.5 0 % Release 07/25/20 14:35 Complement C3 106 mg/dL (83-193) 07/21/20 09:56 Complement C4 21 mg/dL (15-57) 07/21/20 09:56 Coronavirus (PCR) Negative (Negative) 07/21/20 08:20 Hepatitis A IgM Ab Non-reactive (NonReactive) 07/23/20 17:33 Hep Bs Antigen Non-reactive (Negative) 07/23/20 17:33 Hep B Core IgM Ab Non-reactive (NonReactive) 07/23/20 17:33 Hepatitis C Antibody Reactive (NonReactive) A 07/23/20 17:33 Blood Type O POSITIVE 07/20/20 23:15 Antibody Screen Negative 07/20/20 23:15 Microbiology: Microbiology 07/28/20 Unknown Tracheal Aspirate Sputum Culture - Final Russell/IV: Voiding Method Indwelling Catheter Active Medications - Current Medications Current Medications: Generic Name Dose Route Start Last Admin Trade Name Freq PRN Reason Stop Dose Admin Acetaminophen 650 mg 07/20/20 22:51 Acetaminophen 325 Mg/10.15 Ml Oral Liqd Unit Dose FEEDTUBE Q6H PRN Pain MILD(1-3)/Fever >100.5/HESS Albuterol/Ipratropium 1 ampul 07/20/20 23:00 07/29/20 13:56 Ipratropium/Albuterol Sulfate 3 Ml Ampul.Neb IH 1 ampul Q6HRT HONEY Administration Alprazolam 2 mg 07/24/20 22:00 07/29/20 13:50 Alprazolam 1 Mg Tab PO 2 mg Q8HR HONEY Administration Lipase/Protease/Amylase 1 each 07/24/20 18:26 Lipase 10,500/Protease 25,000/Amylase 43,750 (Units) Dr Cap FEEDTUBE PRN PRN For Clogged Feeding Tube Dextrose 50 ml 07/26/20 10:10 Dextrose 50% In Water (25gm) 50 Ml Syringe IV Q30MIN PRN Hypoglycemia Protocol Famotidine 20 mg 07/28/20 22:00 07/29/20 09:04 Famotidine 20 Mg Tab PO 20 mg BID HONEY Administration Fentanyl 50 mcg 07/28/20 05:43 07/28/20 06:15 Fentanyl 100 Mcg/2 Ml Inj IV 50 mcg Q10MIN PRN Administration ANALGESIA Folic Acid 1 mg 07/29/20 10:00 07/29/20 09:04 Folic Acid 1 Mg Tab PO 1 mg DAILY HONEY Administration Glycopyrrolate 0.2 mg 07/29/20 13:19 Glycopyrrolate 0.4 Mg/2 Ml Inj IV Q4H PRN Secretions Hydralazine HCl 10 mg 07/22/20 23:25 07/27/20 23:08 Hydralazine 20 Mg/1 Ml Inj IV 10 mg Q6H PRN Administration Hypertension Hydrophilic Ointment 1 applic 07/28/20 05:43 Lip Therapy Vaseline TP Q2HR PRN Dry Lips Norepinephrine 4 mg in 250 mls @ 7.5 mls/hr 07/28/20 02:00 07/29/20 15:12 Levophed Drip 4 Mg/Ns 250 Ml IV 0 mcg/min TITR HONEY 0 mls/hr Titration Protocol 2 MCG/MIN Fentanyl Citrate 2,000 mcg in 100 mls @ 2.65 mls/hr 07/28/20 06:00 07/29/20 15:18 Fentanyl Drip Premix IV 4 mcg/kg/hr TITR HONEY 10.6 mls/hr Titration Protocol 1 MCG/KG/HR Ceftriaxone Sodium 1 gm in 50 mls @ 100 mls/hr 07/28/20 13:00 07/29/20 09:05 Rocephin/Ns 1 Gm/50 Ml IV 100 mls/hr Q24HR HONEY Administration Protocol Vancomycin HCl 750 mg/ Sodium 265 mls @ 166.667 mls/hr 07/29/20 15:00 07/29/20 15:14 Chloride IV 166.667 mls/hr Q24H HONEY Administration Amino Acids/Electrolytes/Dextrose 1,800 mls @ 75 mls/hr 07/28/20 20:00 07/29/20 15:18 Tpn Adult IV 07/29/20 19:59 0 mls/hr DAILY@1999 [facility] Infusion Protocol Insulin Human Regular 0 units 07/26/20 12:00 07/29/20 12:09 Insulin Regular, Human 100 Units/1 Ml SUB-Q Not Given Q6HR [facility] Protocol Lorazepam 2 mg 07/29/20 13:19 Lorazepam 2 Mg/Ml Vial IV Q1H PRN anxiety/insomnia Metoclopramide HCl 5 mg 07/20/20 22:51 Metoclopramide 10 Mg/2 Ml Inj IV Q6H PRN Nausea And Vomiting Morphine Sulfate 2 mg 07/29/20 14:00 Morphine 2 Mg/1 Ml Inj IV Q1H PRN mod pain or comfort measures Multi-Ingred Cream/Lotion/Oil/Oint 1 applic 07/28/20 05:43 Mineral Oil/Petrolatum, White Ophth Oint 3.5 Gm OU Q4HR PRN Dry Eye(s) Simple Syrup 15 ml 07/24/20 18:26 Simple Syrup 15 Ml FEEDTUBE PRN PRN Hypoglycemia Simple Syrup 30 ml 07/24/20 18:26 Simple Syrup 15 Ml FEEDTUBE PRN PRN Hypoglycemia Sodium Bicarbonate 325 mg 07/24/20 18:26 Sodium Bicarbonate 325 Mg Tab FEEDTUBE PRN PRN For Clogged Feeding Tube Sodium Chloride 10 ml 07/21/20 10:00 07/29/20 09:04 Sodium Chloride 0.9% 10 Ml Flush Syringe IV 10 ml BID HONEY Administration Sodium Chloride 10 ml 07/20/20 22:51 07/25/20 05:01 Sodium Chloride 0.9% 10 Ml Flush Syringe IV 10 ml PRN PRN Administration LINE FLUSH Thiamine HCl 100 mg 07/29/20 10:00 07/29/20 09:04 Thiamine 100 Mg Tab PO 100 mg QDAY HONEY Administration Nutrition/Malnutrition Assess - Dietary Evaluation Nutrition/Malnutrition Findings: Nutrition Notes Start: 07/22/20 12:24 Freq: Status: Active Protocol: Document 07/29/20 11:41 CW (Rec: 07/29/20 11:52 CW [id number]) Nutrition Notes Initial or Follow up Reassessment Current Diagnosis Acute Kidney Injury,Sepsis, Hypertension,Respiratory Failure Other Pertinent Diagnosis Hep C, AMS, UTI, Encephalopathy, dehydration Current Diet CPN at 75ml/hr Labs/Tests BUN 19 Cr 0.4 Pertinent Medications Levophed Thiamine Folic Acid Height 5 ft 3 in Weight 53 kg [place] Body Weight (kg) 52.27 BMI 20.7 Weight Status Underweight Subjective/Other Information F/U for CPN. Pt now on mechanical vent. CPN hess sbeen tolerated adn running at 75 ml /hr. will d/c CPN following completion of current TPN bag and initiate TF. RN informed to drop rate down to 40 ml/hr at 6p then stop at 7p then start TF. Percent of energy/protein needs met: 74% energy 100% pro Burn Absent Trauma Absent GI Symptoms None Current % PO Negligible Minimum of two criteria No physical signs of malnutrition #1 Nutrition Diagnosis Inadequate oral intake Diagnosis Progress(for reassessment Continues documentation) Is patient on ventilator? Yes Is Patient Ambulatory and/or Out of Bed No REE-([facility]-confined to bed) 1258.560 Kcal/Kg value to use for calculation 30 Approximate Energy Requirements Using 1590 kcal/Kg Calculation Used for Recommendations Kcal/kg Additional Notes Pro needs 1.2-2g/k-106g/ day Fluid needs 1ml/kcal Nutrition Intervention Change Diet Order: d/c CPN Initiate Nutrition Support: Osmolite 1.5 at 45ml/hr with a free water flush of 135 ml q4h Kcal 1,620 Protein (gm) 68 Fluid (mL) 823 Goal #1 Taper off CPN at 6p and d/c at 7p Goal #2 Initiate TF Follow-Up By: 08/01/20 Additional Comments F/U for TF initiation/ tolerance, vent status
[2020-07-29] MEDS: LORazepam 2 MG/ML VIAL IV PRN ×2 (18:48→21:09)
[2020-07-29] MEDS: MORPHINE 2 MG/1 ML INJ IV PRN (22:29)
[2020-07-30] MEDS: LORazepam 2 MG/ML VIAL IV PRN (01:31)
[2020-07-30] MEDS: MORPHINE 2 MG/1 ML INJ IV PRN ×4 (05:26→17:12)
[2020-07-30] MEDS: hydrALAZINE 20 MG/1 ML INJ IV PRN ×2 (06:29→13:57)
--- NOTE | 2020-07-30 12:43 | Progress Note ---
Assessment and Plan Sepsis Acute respiratory failure S/p cardiac arrest Urinary tract infection with Klebsiella pneumonia Rhabdomyolysis Thrombocytopenia Leukocytosis Acute metabolic encephalopathy Hypertension Hepatitis C Moderate pulmonary hypertension Patient extubated yesterday Withdrawal of care forms signed Mild to moderate respiratory distress Prognosis poor Subjective Date of service: 07/30/20 Principal diagnosis: Sepsis anoxic encephalopathy Interval history: This is a 65-year-old female with hepatitis C, migraines and hypertension who had presented to the emergency department on 07/21 with altered mental status after being found on the floor by family members. Upon evaluation in the emergency department patient was found to be hypothermic and hypotensive with leukocytosis and acute kidney failure consistent with sepsis. Patient also had elevated D- dimer, metabolic encephalopathy, lactic acidosis, hyperkalemia and rhabdomyolysis. Patient was admitted to the hospital service with sepsis, UTI, DOREEN, rhabdomyolysis, acute respiratory failure, metabolic acidosis, acute metabolic encephalopathy. Nephrology, infectious disease and critical care consulted. 07/21: Patient received a total of 4 L normal saline, was started on vasopressin and remains on BiPAP. Patient was on Levophed and D5 normal saline and a bicarbonate drip. D5 normal saline was discontinued. We will obtain a p.m. BMP and serial BMPs. Patient was contacted and the patient is now on AND/DNR. 07/22: Patient received a total of 12 L IV bolus and has been weaned off of Levophed and vasopressin. Patient's kidney function has improved drastically. Patient has been started on scheduled Haldol and we obtained a baseline ECG.she was started on maintenance fluid overnight which was stopped today. Echocardiogram shows moderate pulmonary hypertension. [facility] would like to obtain a CT chest when more stable. RT is titrating BiPAP FiO2 as tolerated and we will assess for nutrition once off BiPAP.Patient now has hypernatremia, hyperchloremia and her BUN/creatinine has decreased to 53/1.4. 07/23/2020; patient is still on BiPAP, agitated and confused. Kidney function improved. Patient was on Haldol and Geodon which did not help. Put the patient on Ativan as needed this morning. I have a long discussion with her yesterday and she does not want any heroic measures to be done. Does not want NG tube to be placed. Patient is DNR/DNI. Patient has UTI and on cefepime. Patient prognosis is guarded. Patient has hypernatremia and placed on D5 0.2% normal saline but no improvement. Hypokalemia, repleted according to electrolyte protocol. Patient prognosis is very poor. Patient is gasping for air. 07/24/2020; patient is on BiPAP, agitated and confused. Sodium is trending up and 163 this morning despite the patient is on D5 W at 125. Family declined NG tube. Patient's family states patient is not alcoholic. UDS is positive for op ioid. Patient has delirium and supportive care. On alcohol withdrawal protocol. Patient has UTI and continue with cefepime. Urine culture noted. 07/25: This morning the time my examination patient is on BiPAP therapy and has NG tube to tube feedings. Patient has hypomagnesemic which was repleted and severely hypokalemic which was also repleted. Patient has hypernatremia and her leukocytosis has improved. Urine culture speciated to Klebsiella and antibiotic regimen has been modified per ID. 07/26: PICC placement for PPN and RT is weaning BiPAP. At the time of my exam she was on 12/12 at 85% FiO2. Patient was hypokalemic today which was repleted. Patient remains hypokalemic in the HIT panel is pending. We will obtain a neurology bus info consultant B12/folate. LTACH placement is pending per . Patient's mentation is better today and no acute events reported overnight. 07/27: Neurology would like to obtain an EEG and MRI brain without contrast and she completed antibiotic therapy today. Patient noted her increased diuresis which could be immobilizing her volume resuscitation, ATN diuresis or SIADH we will obtain a CT of her head with contrast. RT continues to wean BiPAP therapy. No acute events reported overnight. Patient is hypokalemic and hypomagnesemic today which was repleted. She remains on PPN. 07/28: Overnight the patient has a respiratory and cardiac arrest and a mucous plug was removed. She was intubated and placed on ventilatory support. She is on levophed and sedated with fentanyl. Patient has a MRI B which is pending. [facility] plans to bronch her tomorrow and would like to obtain a CT chest. Patient still feeding will be started on PPN is completed. She will receive LR bolus to replace her output over the past 24 hours. I spoke to the patient's and he has changed her CODE STATUS to AND/DNR which has been updated in the computer and care team has been informed. 07/29: Patient's has chosen to withdraw care and we transition the patient to comfort care per their wishes. Patient has been extubated. Patient will be transferred to the floor with telemetry monitoring. Objective - Constitutional Vitals: Vital Signs - 12hr 07/30/20 07/30/20 07/30/20 04:00 05:19 05:26 Temperature 100.0 F H Pulse Rate 113 H 116 H Respiratory 22 24 Rate Blood Pressure 184/95 O2 Sat by Pulse 91 Oximetry 07/30/20 07/30/20 07/30/20 05:56 06:29 08:00 Temperature Pulse Rate 116 H Respiratory 24 Rate Blood Pressure 184/95 O2 Sat by Pulse 92 Oximetry 07/30/20 11:18 Temperature Pulse Rate Respiratory Rate Blood Pressure O2 Sat by Pulse 90 Oximetry General appearance: Present: mild distress, well-nourished - EENT Eyes: PERRL, EOM intact ENT: hearing intact, clear oral mucosa Ears: bilateral: normal - Neck Neck: supple, normal ROM - Respiratory Respiratory effort: normal Respiratory: bilateral: CTA - Breasts Breasts: normal - Cardiovascular Heart rate: 78 Rhythm: regular Heart Sounds: Present: S1 & S2. Absent: gallop, rub Extremities: pulses intact, No edema, normal color, Full ROM - Gastrointestinal General gastrointestinal: Present: soft, non-tender, non-distended, normal bowel sounds - Genitourinary Female genitourinary: normal - Integumentary Integumentary: clear, warm, dry - Musculoskeletal Musculoskeletal: 1, strength equal bilaterally - Neurologic Neurologic: moves all extremities - Psychiatric Psychiatric: memory intact, appropriate mood/affect, intact judgment & insight - Labs CBC & Chem 7: 07/29/20 04:00 07/29/20 04:50 Labs: Abnormal lab results 07/29/20 Range/Units 11:21 POC Glucose 112 H (70-105) mg/dL HEART Score - HEART Score Troponin: Troponin T 0.026 ng/mL (0.00-0.029) 07/20/20 19:27
--- NOTE | 2020-07-30 17:49 | Progress Note ---
Assessment and Plan Impression: * Nonoliguric DOREEN secondary to multifactorial etiologies: prerenal component due to volume depletion vs ATN (sepsis) * Acute hypoxic respiratory failure * Sepsis * Klebsiella UTI * Acute encephelopathy * Uremia * Hypernatremia: free water deficit, now improved * Hyperkalemia->hypokalemia now: likely nutritional * Metabolic Alkalosis: likely contracted Plan: * Renal function improved with volume resuscitation. Peaked with creatinine 7.7->0.5->0.4 most recently over past week. No acute indication for renal replacement therapy at this time. Continue conservative management. Creatinine now abnormally low, likely due to poor nutrition * Continue K repletion via TPN * Checked urine chloride for alkalosis, is higher than expected, still feel that patient appears more contracted but will follow, HCO3 stable at 34 * Abx per primary team * Pressors prn to maintain MAP>65 * Avoid potential nephrotoxins * Dose medications for renal function * AM labs * Following goals of care discussions * Will follow patient peripherally at this time, thanks for the consult Subjective Date of service: 07/30/20 Principal diagnosis: Sepsis anoxic encephalopathy Interval history: No acute changes noted, transferred to [facility], off pressors Objective - Exam Narrative Exam: General appearance: facemask, sedated EENT: ATNC Respiratory: Present: [facility]: regular, S1S2 Gastrointestinal: normal, no tenderness, no distended Integumentary: no rash, warm and dry Neurologic: other (agitated) Musculoskeletal: other (no edema) - Vital Signs Vital signs: Vital Signs - 12hr 07/30/20 07/30/20 07/30/20 05:56 06:29 08:00 Temperature Pulse Rate 116 H Respiratory 24 Rate Blood Pressure 184/95 Blood Pressure [Right] O2 Sat by Pulse 92 Oximetry 07/30/20 07/30/20 07/30/20 11:18 13:00 13:24 Temperature 98.2 F 98.2 F Pulse Rate 113 H 113 H Respiratory 42 H 42 H Rate Blood Pressure Blood Pressure 171/98 171/98 [Right] O2 Sat by Pulse 90 Oximetry 07/30/20 13:57 Temperature Pulse Rate 113 H Respiratory Rate Blood Pressure 171/98 Blood Pressure [Right] O2 Sat by Pulse Oximetry - Lab 07/29/20 04:00 07/29/20 04:50 Most recent lab results ABG pH 7.461 (7.320-7.450) H 07/29/20 04:00 ABG O2 Saturation 97.6 (0-100) 07/29/20 04:00 Calcium 7.7 mg/dL (8.4-10.2) L 07/29/20 04:50 Phosphorus 2.70 mg/dL (2.5-4.5) 07/29/20 04:50 Magnesium 1.60 mg/dL (1.7-2.3) L 07/29/20 04:50 Urine Creatinine 40.4 mg/dL (0.1-20.0) H 07/26/20 07:14 Urine Sodium 10 mmol/L 07/21/20 Unknown Medications & Allergies - Medications Allergies/Adverse Reactions: Allergies Iodine and Iodide Containing Produc Adverse Reaction (Verified 10/26/18 10:10) Rash Home Medications: Home Medications Medication Instructions Recorded Confirmed Last Taken Type Ondansetron [Zofran TAB] 4 mg PO Q8HR PRN #15 tablet 07/17/17 Unknown Rx Ibuprofen [Motrin 600 MG tab] 600 mg PO Q8H PRN #30 tablet 01/18/18 Unknown Rx Sulfamethoxazole/Trimethoprim 1 each PO BID 10 Days #20 tablet 01/18/18 Unknown Rx [Bactrim DS TAB] cephALEXin [Keflex] 500 mg PO Q12HR #20 capsule 01/18/18 Unknown Rx Famotidine [Pepcid] 20 mg PO BID #10 tablet 05/17/18 Unknown Rx Mag Hydrox/Aluminum Hyd/Simeth 15 ml PO QID #1 oral.susp 05/17/18 Unknown Rx [Maalox Advanced Suspension] Ondansetron [Zofran ODT TAB] 8 mg PO Q12HR #20 tab.rapdis 05/17/18 Unknown Rx Acetaminophen/Codeine [Tylenol 1 tab PO Q6H PRN #12 tab 10/26/18 Unknown Rx /Codeine # 3 tab] Clindamycin [Clindamycin CAP] 300 mg PO Q8H #21 cap 10/26/18 Unknown Rx Esomeprazole Magnesium [NexIUM] 40 mg PO QDAY 20 Days #20 06/04/19 Unknown Rx capsule. ALPRAZolam [Xanax TAB] 2 mg PO Q8H 07/23/20 07/23/20 Unknown History Carisoprodol [Soma] 350 mg PO Q6H 07/23/20 07/23/20 Unknown History Ezetimibe [Zetia] 10 mg PO DAILY 07/23/20 07/23/20 Unknown History Gabapentin [Neurontin] 600 mg PO Q6H 07/23/20 07/23/20 Unknown History HYDROcodone/APAP 5-325 1 tab Q6H 07/23/20 07/23/20 Unknown History SUMAtriptan SUCCINATE [Imitrex] 100 mg PO Q2H PRN 07/23/20 07/23/20 Unknown History Active Medications: Generic Name Dose Route Start Last Admin Trade Name Freq PRN Reason Stop Dose Admin Glycopyrrolate 0.2 mg 07/29/20 13:19 Glycopyrrolate 0.4 Mg/2 Ml Inj IV Q4H PRN Secretions Hydralazine HCl 5 mg 07/30/20 05:50 07/30/20 13:57 Hydralazine 20 Mg/1 Ml Inj IV 5 mg Q4H PRN Administration FOR SBP GREATER THAN 160. Lorazepam 2 mg 07/29/20 13:19 07/30/20 01:31 Lorazepam 2 Mg/Ml Vial IV 2 mg Q1H PRN Administration anxiety/insomnia Morphine Sulfate 2 mg 07/29/20 14:00 07/30/20 17:12 Morphine 2 Mg/1 Ml Inj IV 2 mg Q1H PRN Administration mod pain or comfort measures
[2020-07-31] MEDS: ACETAMINOPHEN 650 MG RECT SUPP PR PRN ×3 (06:19→18:05)
--- NOTE | 2020-07-31 13:45 | Progress Note ---
Assessment and Plan Sepsis Acute respiratory failure S/p cardiac arrest Urinary tract infection with Klebsiella pneumonia Rhabdomyolysis Thrombocytopenia Leukocytosis Acute metabolic encephalopathy Hypertension Hepatitis C Moderate pulmonary hypertension Patient extubated yesterday Withdrawal of care forms signed Mild to moderate respiratory distress Prognosis poor Subjective Date of service: 07/31/20 Principal diagnosis: Sepsis anoxic encephalopathy Interval history: This is a 65-year-old female with hepatitis C, migraines and hypertension who had presented to the emergency department on 07/21 with altered mental status after being found on the floor by family members. Upon evaluation in the emergency department patient was found to be hypothermic and hypotensive with leukocytosis and acute kidney failure consistent with sepsis. Patient also had elevated D- dimer, metabolic encephalopathy, lactic acidosis, hyperkalemia and rhabdomyolysis. Patient was admitted to the hospital service with sepsis, UTI, DOREEN, rhabdomyolysis, acute respiratory failure, metabolic acidosis, acute metabolic encephalopathy. Nephrology, infectious disease and critical care consulted. 07/21: Patient received a total of 4 L normal saline, was started on vasopressin and remains on BiPAP. Patient was on Levophed and D5 normal saline and a bicarbonate drip. D5 normal saline was discontinued. We will obtain a p.m. BMP and serial BMPs. Patient was contacted and the patient is now on AND/DNR. 07/22: Patient received a total of 12 L IV bolus and has been weaned off of Levophed and vasopressin. Patient's kidney function has improved drastically. Patient has been started on scheduled Haldol and we obtained a baseline ECG.she was started on maintenance fluid overnight which was stopped today. Echocardiogram shows moderate pulmonary hypertension. [facility] would like to obtain a CT chest when more stable. RT is titrating BiPAP FiO2 as tolerated and we will assess for nutrition once off BiPAP.Patient now has hypernatremia, hyperchloremia and her BUN/creatinine has decreased to 53/1.4. 07/23/2020; patient is still on BiPAP, agitated and confused. Kidney function improved. Patient was on Haldol and Geodon which did not help. Put the patient on Ativan as needed this morning. I have a long discussion with her yesterday and she does not want any heroic measures to be done. Does not want NG tube to be placed. Patient is DNR/DNI. Patient has UTI and on cefepime. Patient prognosis is guarded. Patient has hypernatremia and placed on D5 0.2% normal saline but no improvement. Hypokalemia, repleted according to electrolyte protocol. Patient prognosis is very poor. Patient is gasping for air. 07/24/2020; patient is on BiPAP, agitated and confused. Sodium is trending up and 163 this morning despite the patient is on D5 W at 125. Family declined NG tube. Patient's family states patient is not alcoholic. UDS is positive for op ioid. Patient has delirium and supportive care. On alcohol withdrawal protocol. Patient has UTI and continue with cefepime. Urine culture noted. 07/25: This morning the time my examination patient is on BiPAP therapy and has NG tube to tube feedings. Patient has hypomagnesemic which was repleted and severely hypokalemic which was also repleted. Patient has hypernatremia and her leukocytosis has improved. Urine culture speciated to Klebsiella and antibiotic regimen has been modified per ID. 07/26: PICC placement for PPN and RT is weaning BiPAP. At the time of my exam she was on 12/12 at 85% FiO2. Patient was hypokalemic today which was repleted. Patient remains hypokalemic in the HIT panel is pending. We will obtain a neurology recruiting operations consultant B12/folate. LTACH placement is pending per . Patient's mentation is better today and no acute events reported overnight. 07/27: Neurology would like to obtain an EEG and MRI brain without contrast and she completed antibiotic therapy today. Patient noted her increased diuresis which could be immobilizing her volume resuscitation, ATN diuresis or SIADH we will obtain a CT of her head with contrast. RT continues to wean BiPAP therapy. No acute events reported overnight. Patient is hypokalemic and hypomagnesemic today which was repleted. She remains on PPN. 07/28: Overnight the patient has a respiratory and cardiac arrest and a mucous plug was removed. She was intubated and placed on ventilatory support. She is on levophed and sedated with fentanyl. Patient has a MRI B which is pending. [facility] plans to bronch her tomorrow and would like to obtain a CT chest. Patient still feeding will be started on PPN is completed. She will receive LR bolus to replace her output over the past 24 hours. I spoke to the patient's and he has changed her CODE STATUS to AND/DNR which has been updated in the computer and care team has been informed. 07/29: Patient's has chosen to withdraw care and we transition the patient to comfort care per their wishes. Patient has been extubated. Patient will be transferred to the floor with telemetry monitoring. Objective - Constitutional Vitals: Vital Signs - 12hr 07/31/20 05:09 Temperature 102.1 F H Pulse Rate 116 H Respiratory 28 H Rate Blood Pressure 134/77 O2 Sat by Pulse 90 Oximetry General appearance: Present: no acute distress, well-nourished - EENT Eyes: PERRL, EOM intact ENT: hearing intact, clear oral mucosa Ears: bilateral: normal - Neck Neck: supple, normal ROM - Respiratory Respiratory effort: normal Respiratory: bilateral: CTA - Breasts Breasts: normal - Cardiovascular Rhythm: regular Heart Sounds: Present: S1 & S2. Absent: gallop, rub Extremities: pulses intact, No edema, normal color, Full ROM - Gastrointestinal General gastrointestinal: Present: soft, non-tender, non-distended, normal bowel sounds - Genitourinary Female genitourinary: normal - Integumentary Integumentary: clear, warm, dry - Musculoskeletal Musculoskeletal: 1, strength equal bilaterally - Neurologic Neurologic: moves all extremities - Psychiatric Psychiatric: memory intact, appropriate mood/affect, intact judgment & insight - Labs CBC & Chem 7: 07/29/20 04:00 07/29/20 04:50 HEART Score - HEART Score Troponin: Troponin T 0.026 ng/mL (0.00-0.029) 07/20/20 19:27
[2020-08-01] MEDS: ACETAMINOPHEN 650 MG RECT SUPP PR PRN ×3 (01:30→17:12)
--- NOTE | 2020-08-01 08:37 | Progress Note ---
Subjective Principal diagnosis: Sepsis anoxic encephalopathy Interval history: Patient was seen today for follow-up of multiple renal related issues Interdisciplinary notes that also reviewed Events of 24 hours vitals labs intake output medications were reviewed Past medical history: Reviewed Family history: Reviewed Social history: Reviewed Allergies: Reviewed Physical examination: Vitals: Reviewed HEENT: No pallor or icterus oral mucosa moist Neck: Supple no JVD no thyromegaly Chest: Bilateral clear to auscultation anteriorly Heart: Regular rate and rhythm S1-S2 heard no S3-S4 Abdomen: Soft nontender no voluntary guarding rigidity rebound Extremity: Dry skin less than 1+ peripheral edema Psychiatric: No evidence of agitation and aggression noted Dermatology: No petechial rashes Labs and x-rays: Reviewed from today Assessment and plan Nonoliguric acute kidney injury, mostly felt to be due to prerenal competent, possibility of acute tubular necrosis to some degree cannot be ruled out given the patient has had acute hypoxic respiratory failure Patient renal function has markedly improved as of July 29 creatinine was 0.4 potassium 4.1 phosphorus was 2.7 #Hyponatremia, appears to have resolved current sodium around 144 #Hyperkalemia: Resolved avoid nonsteroidal drug #Sepsis with Klebsiella UTI with acute encephalopathy and uremia We'll continue to follow and make recommendation for renal standpoint Objective - Vital Signs Vital signs: Vital Signs - 12hr 07/31/20 07/31/20 07/31/20 22:00 22:02 22:54 Temperature 100.0 F H 103.1 F H Pulse Rate 114 H Respiratory 32 H Rate Blood Pressure 115/60 O2 Sat by Pulse 92 88 Oximetry 08/01/20 08/01/20 08/01/20 01:30 04:41 07:47 Temperature 103.2 F H 100.6 F H Pulse Rate 103 H 100 H Respiratory 30 H 32 H Rate Blood Pressure 108/59 106/60 O2 Sat by Pulse 75 L 98 Oximetry - Lab 07/29/20 04:00 07/29/20 04:50 Most recent lab results ABG pH 7.461 (7.320-7.450) H 07/29/20 04:00 ABG O2 Saturation 97.6 (0-100) 07/29/20 04:00 Calcium 7.7 mg/dL (8.4-10.2) L 07/29/20 04:50 Phosphorus 2.70 mg/dL (2.5-4.5) 07/29/20 04:50 Magnesium 1.60 mg/dL (1.7-2.3) L 07/29/20 04:50 Urine Creatinine 40.4 mg/dL (0.1-20.0) H 07/26/20 07:14 Urine Sodium 10 mmol/L 07/21/20 Unknown Medications & Allergies - Medications Allergies/Adverse Reactions: Allergies Iodine and Iodide Containing Produc Adverse Reaction (Verified 10/26/18 10:10) Rash Home Medications: Home Medications Medication Instructions Recorded Confirmed Last Taken Type Ondansetron [Zofran TAB] 4 mg PO Q8HR PRN #15 tablet 07/17/17 Unknown Rx Ibuprofen [Motrin 600 MG tab] 600 mg PO Q8H PRN #30 tablet 01/18/18 Unknown Rx Sulfamethoxazole/Trimethoprim 1 each PO BID 10 Days #20 tablet 01/18/18 Unknown Rx [Bactrim DS TAB] cephALEXin [Keflex] 500 mg PO Q12HR #20 capsule 01/18/18 Unknown Rx Famotidine [Pepcid] 20 mg PO BID #10 tablet 05/17/18 Unknown Rx Mag Hydrox/Aluminum Hyd/Simeth 15 ml PO QID #1 oral.susp 05/17/18 Unknown Rx [Maalox Advanced Suspension] Ondansetron [Zofran ODT TAB] 8 mg PO Q12HR #20 tab.rapdis 05/17/18 Unknown Rx Acetaminophen/Codeine [Tylenol 1 tab PO Q6H PRN #12 tab 10/26/18 Unknown Rx /Codeine # 3 tab] Clindamycin [Clindamycin CAP] 300 mg PO Q8H #21 cap 10/26/18 Unknown Rx Esomeprazole Magnesium [NexIUM] 40 mg PO QDAY 20 Days #20 06/04/19 Unknown Rx capsule. ALPRAZolam [Xanax TAB] 2 mg PO Q8H 07/23/20 07/23/20 Unknown History Carisoprodol [Soma] 350 mg PO Q6H 07/23/20 07/23/20 Unknown History Ezetimibe [Zetia] 10 mg PO DAILY 07/23/20 07/23/20 Unknown History Gabapentin [Neurontin] 600 mg PO Q6H 07/23/20 07/23/20 Unknown History HYDROcodone/APAP 5-325 1 tab Q6H 07/23/20 07/23/20 Unknown History SUMAtriptan SUCCINATE [Imitrex] 100 mg PO Q2H PRN 07/23/20 07/23/20 Unknown History Active Medications: Generic Name Dose Route Start Last Admin Trade Name Freq PRN Reason Stop Dose Admin Acetaminophen 650 mg 07/31/20 06:01 08/01/20 01:30 Acetaminophen 650 Mg Rect Supp ND 650 mg Q6H PRN Administration Pain, Mild (1-3) Glycopyrrolate 0.2 mg 07/29/20 13:19 Glycopyrrolate 0.4 Mg/2 Ml Inj IV Q4H PRN Secretions Hydralazine HCl 5 mg 07/30/20 05:50 07/30/20 13:57 Hydralazine 20 Mg/1 Ml Inj IV 5 mg Q4H PRN Administration FOR SBP GREATER THAN 160. Lorazepam 2 mg 07/29/20 13:19 07/30/20 01:31 Lorazepam 2 Mg/Ml Vial IV 2 mg Q1H PRN Administration anxiety/insomnia Morphine Sulfate 2 mg 07/29/20 14:00 07/30/20 17:12 Morphine 2 Mg/1 Ml Inj IV 2 mg Q1H PRN Administration mod pain or comfort measures
--- NOTE | 2020-08-02 07:35 | Progress Note ---
Assessment and Plan Sepsis Acute respiratory failure S/p cardiac arrest Urinary tract infection with Klebsiella pneumonia Rhabdomyolysis Thrombocytopenia Leukocytosis Acute metabolic encephalopathy Hypertension Hepatitis C Moderate pulmonary hypertension Patient extubated yesterday Withdrawal of care forms signed Mild to moderate respiratory distress Prognosis poor Subjective Date of service: 08/01/20 Principal diagnosis: Sepsis anoxic encephalopathy Interval history: This is a 65-year-old female with hepatitis C, migraines and hypertension who had presented to the emergency department on 07/21 with altered mental status after being found on the floor by family members. Upon evaluation in the emergency department patient was found to be hypothermic and hypotensive with leukocytosis and acute kidney failure consistent with sepsis. Patient also had elevated D- dimer, metabolic encephalopathy, lactic acidosis, hyperkalemia and rhabdomyolysis. Patient was admitted to the hospital service with sepsis, UTI, DOREEN, rhabdomyolysis, acute respiratory failure, metabolic acidosis, acute metabolic encephalopathy. Nephrology, infectious disease and critical care consulted. 07/21: Patient received a total of 4 L normal saline, was started on vasopressin and remains on BiPAP. Patient was on Levophed and D5 normal saline and a bicarbonate drip. D5 normal saline was discontinued. We will obtain a p.m. BMP and serial BMPs. Patient was contacted and the patient is now on AND/DNR. 07/22: Patient received a total of 12 L IV bolus and has been weaned off of Levophed and vasopressin. Patient's kidney function has improved drastically. Patient has been started on scheduled Haldol and we obtained a baseline ECG.she was started on maintenance fluid overnight which was stopped today. Echocardiogram shows moderate pulmonary hypertension. [facility] would like to obtain a CT chest when more stable. RT is titrating BiPAP FiO2 as tolerated and we will assess for nutrition once off BiPAP.Patient now has hypernatremia, hyperchloremia and her BUN/creatinine has decreased to 53/1.4. 07/23/2020; patient is still on BiPAP, agitated and confused. Kidney function improved. Patient was on Haldol and Geodon which did not help. Put the patient on Ativan as needed this morning. I have a long discussion with her yesterday and she does not want any heroic measures to be done. Does not want NG tube to be placed. Patient is DNR/DNI. Patient has UTI and on cefepime. Patient prognosis is guarded. Patient has hypernatremia and placed on D5 0.2% normal saline but no improvement. Hypokalemia, repleted according to electrolyte protocol. Patient prognosis is very poor. Patient is gasping for air. 07/24/2020; patient is on BiPAP, agitated and confused. Sodium is trending up and 163 this morning despite the patient is on D5 W at 125. Family declined NG tube. Patient's family states patient is not alcoholic. UDS is positive for op ioid. Patient has delirium and supportive care. On alcohol withdrawal protocol. Patient has UTI and continue with cefepime. Urine culture noted. 07/25: This morning the time my examination patient is on BiPAP therapy and has NG tube to tube feedings. Patient has hypomagnesemic which was repleted and severely hypokalemic which was also repleted. Patient has hypernatremia and her leukocytosis has improved. Urine culture speciated to Klebsiella and antibiotic regimen has been modified per ID. 07/26: PICC placement for PPN and RT is weaning BiPAP. At the time of my exam she was on 12/12 at 85% FiO2. Patient was hypokalemic today which was repleted. Patient remains hypokalemic in the HIT panel is pending. We will obtain a neurology [employer] consultant B12/folate. LTACH placement is pending per . Patient's mentation is better today and no acute events reported overnight. 07/27: Neurology would like to obtain an EEG and MRI brain without contrast and she completed antibiotic therapy today. Patient noted her increased diuresis which could be immobilizing her volume resuscitation, ATN diuresis or SIADH we will obtain a CT of her head with contrast. RT continues to wean BiPAP therapy. No acute events reported overnight. Patient is hypokalemic and hypomagnesemic today which was repleted. She remains on PPN. 07/28: Overnight the patient has a respiratory and cardiac arrest and a mucous plug was removed. She was intubated and placed on ventilatory support. She is on levophed and sedated with fentanyl. Patient has a MRI B which is pending. [facility] plans to bronch her tomorrow and would like to obtain a CT chest. Patient still feeding will be started on PPN is completed. She will receive LR bolus to replace her output over the past 24 hours. I spoke to the patient's and he has changed her CODE STATUS to AND/DNR which has been updated in the computer and care team has been informed. 07/29: Patient's has chosen to withdraw care and we transition the patient to comfort care per their wishes. Patient has been extubated. Patient will be transferred to the floor with telemetry monitoring. 07/30/20 Withdrawal of Life support Post extubation tachypneic and unresponsive Hospice care to be requested 07/31/20 patient tachypneic and unresponxive Patient prognosis poor D/w 08/01/20 Hospice care to be proposed Objective - Constitutional Vitals: Vital Signs - 12hr 08/01/20 08/01/20 08/02/20 21:40 22:00 04:39 Temperature 98.8 F 98.3 F Pulse Rate 89 90 Respiratory 28 H 24 Rate Blood Pressure 86/41 82/37 O2 Sat by Pulse 100 95 100 Oximetry General appearance: Present: severe distress, well-nourished - EENT Eyes: PERRL, EOM intact ENT: hearing intact, clear oral mucosa Ears: bilateral: normal - Neck Neck: supple, normal ROM - Respiratory Respiratory effort: normal Respiratory: bilateral: CTA - Breasts Breasts: normal - Cardiovascular Heart rate: 88 Rhythm: regular Heart Sounds: Present: S1 & S2. Absent: gallop, rub Extremities: pulses intact, No edema, normal color, Full ROM - Gastrointestinal General gastrointestinal: Present: soft, non-tender, non-distended, normal bowel sounds - Genitourinary Female genitourinary: normal - Integumentary Integumentary: clear, warm, dry - Musculoskeletal Musculoskeletal: 1, strength equal bilaterally - Neurologic Neurologic: moves all extremities - Psychiatric Psychiatric: memory intact, appropriate mood/affect, intact judgment & insight - Labs CBC & Chem 7: 07/29/20 04:00 07/29/20 04:50 HEART Score - HEART Score Troponin: Troponin T 0.026 ng/mL (0.00-0.029) 07/20/20 19:27
--- NOTE | 2020-08-02 07:40 | Progress Note ---
Subjective Principal diagnosis: Sepsis anoxic encephalopathy Interval history: Patient was seen today for follow-up of multiple renal related issues essentially unchanged Events of 24 hours vitals labs intake output medications were reviewed Past medical history: Reviewed Family history: Reviewed Social history: Reviewed Allergies: Reviewed Physical examination: Vitals: Reviewed HEENT: No pallor or icterus oral mucosa moist Neck: Supple no JVD no thyromegaly Chest: Bilateral clear to auscultation anteriorly Heart: Regular rate and rhythm S1-S2 heard no S3-S4 Abdomen: Soft nontender no voluntary guarding rigidity rebound Extremity: Dry skin less than 1+ peripheral edema Psychiatric: No evidence of agitation and aggression noted Dermatology: No petechial rashes Labs and x-rays: Reviewed from today Assessment and plan Nonoliguric acute kidney injury, mostly felt to be due to prerenal competent, possibility of acute tubular necrosis to some degree cannot be ruled out given the patient has had acute hypoxic respiratory failure no new labs today last labs from July 29 shows creatinine was 0.4 potassium was 4.1 phosphorus 2.7 #Hyponatremia appears to have resolved #Hyperkalemia appears to have resolved #Sepsis with Klebsiella UTI with acute encephalopathy and uremia We will sign off the case please call if needed Objective - Vital Signs Vital signs: Vital Signs - 12hr 08/01/20 08/01/20 08/02/20 21:40 22:00 04:39 Temperature 98.8 F 98.3 F Pulse Rate 89 90 Respiratory 28 H 24 Rate Blood Pressure 86/41 82/37 O2 Sat by Pulse 100 95 100 Oximetry - Lab 07/29/20 04:00 07/29/20 04:50 Most recent lab results ABG pH 7.461 (7.320-7.450) H 07/29/20 04:00 ABG O2 Saturation 97.6 (0-100) 07/29/20 04:00 Calcium 7.7 mg/dL (8.4-10.2) L 07/29/20 04:50 Phosphorus 2.70 mg/dL (2.5-4.5) 07/29/20 04:50 Magnesium 1.60 mg/dL (1.7-2.3) L 07/29/20 04:50 Urine Creatinine 40.4 mg/dL (0.1-20.0) H 07/26/20 07:14 Urine Sodium 10 mmol/L 07/21/20 Unknown Medications & Allergies - Medications Allergies/Adverse Reactions: Allergies Iodine and Iodide Containing Produc Adverse Reaction (Verified 10/26/18 10:10) Rash Home Medications: Home Medications Medication Instructions Recorded Confirmed Last Taken Type Ondansetron [Zofran TAB] 4 mg PO Q8HR PRN #15 tablet 07/17/17 Unknown Rx Ibuprofen [Motrin 600 MG tab] 600 mg PO Q8H PRN #30 tablet 01/18/18 Unknown Rx Sulfamethoxazole/Trimethoprim 1 each PO BID 10 Days #20 tablet 01/18/18 Unknown Rx [Bactrim DS TAB] cephALEXin [Keflex] 500 mg PO Q12HR #20 capsule 01/18/18 Unknown Rx Famotidine [Pepcid] 20 mg PO BID #10 tablet 05/17/18 Unknown Rx Mag Hydrox/Aluminum Hyd/Simeth 15 ml PO QID #1 oral.susp 05/17/18 Unknown Rx [Maalox Advanced Suspension] Ondansetron [Zofran ODT TAB] 8 mg PO Q12HR #20 tab.rapdis 05/17/18 Unknown Rx Acetaminophen/Codeine [Tylenol 1 tab PO Q6H PRN #12 tab 10/26/18 Unknown Rx /Codeine # 3 tab] Clindamycin [Clindamycin CAP] 300 mg PO Q8H #21 cap 10/26/18 Unknown Rx Esomeprazole Magnesium [NexIUM] 40 mg PO QDAY 20 Days #20 06/04/19 Unknown Rx capsule. ALPRAZolam [Xanax TAB] 2 mg PO Q8H 07/23/20 07/23/20 Unknown History Carisoprodol [Soma] 350 mg PO Q6H 07/23/20 07/23/20 Unknown History Ezetimibe [Zetia] 10 mg PO DAILY 07/23/20 07/23/20 Unknown History Gabapentin [Neurontin] 600 mg PO Q6H 07/23/20 07/23/20 Unknown History HYDROcodone/APAP 5-325 1 tab Q6H 07/23/20 07/23/20 Unknown History SUMAtriptan SUCCINATE [Imitrex] 100 mg PO Q2H PRN 07/23/20 07/23/20 Unknown History Active Medications: Generic Name Dose Route Start Last Admin Trade Name Freq PRN Reason Stop Dose Admin Acetaminophen 650 mg 07/31/20 06:01 08/01/20 17:12 Acetaminophen 650 Mg Rect Supp NV 650 mg Q6H PRN Administration Pain, Mild (1-3) Glycopyrrolate 0.2 mg 07/29/20 13:19 Glycopyrrolate 0.4 Mg/2 Ml Inj IV Q4H PRN Secretions Hydralazine HCl 5 mg 07/30/20 05:50 07/30/20 13:57 Hydralazine 20 Mg/1 Ml Inj IV 5 mg Q4H PRN Administration FOR SBP GREATER THAN 160. Lorazepam 2 mg 07/29/20 13:19 07/30/20 01:31 Lorazepam 2 Mg/Ml Vial IV 2 mg Q1H PRN Administration anxiety/insomnia Morphine Sulfate 2 mg 07/29/20 14:00 07/30/20 17:12 Morphine 2 Mg/1 Ml Inj IV 2 mg Q1H PRN Administration mod pain or comfort measures
--- NOTE | 2020-08-02 12:20 | Discharge Summary ---
Providers - Providers Date of Admission: 07/20/20 22:41 Date of discharge: 08/02/20 Attending physician: KHURRAM MAYBERRY 07/20/20 21:01 Consult to Physician [CONS] Urgent Comment: Dr. Ferro spoke with Dr. Orozco @ 2052 Consulting Provider: EDUARDO OROZCO Physician Instructions: Reason For Exam: NEW ONSET RENAL FAILURE, ACIDOSIS 07/20/20 21:54 Consult to Physician [CONS] Urgent Comment: Consulting Provider: SHABBIR MELLO Physician Instructions: Reason For Exam: sepsis, uti, abnl cxr, covid pending 07/21/20 10:36 PICC Line Insertion [Consult to PICC Line RN] [CONS] Routine Reason For Exam: Vasopressor therapy. Type Line:: PICC 07/24/20 18:22 Consult to Dietitian/Nutrition [CONS] Stat Physician Instructions: Reason For Exam: Reason for Consult: Write/Manage Tube Feeding 07/24/20 18:26 Consult to Dietitian/Nutrition [CONS] Routine Physician Instructions: Assess nutrtn needs, initiate, modify, manage TF Reason For Exam: Reason for Consult: Write/Manage Tube Feeding Reason for Consult: Write/Manage Tube Feeding 07/25/20 15:23 Consult to PICC Line RN [CONS] Routine Reason For Exam: PPN Type Line:: PICC 07/26/20 10:07 Consult to Dietitian/Nutrition [CONS] Routine Physician Instructions: Reason For Exam: Reason for Consult: Write/Manage TPN/PPN 07/26/20 14:16 Consult to Physician [CONS] Routine Comment: Consulting Provider: ESTELA WU Physician Instructions: Reason For Exam: [facility] Primary care physician: CODE AND TEST CLERK Hospitalization Condition: Stable Hospital course: This is a 65-year-old female with hepatitis C, migraines and hypertension who had presented to the emergency department on 07/21 with altered mental status after being found on the floor by family members. Upon evaluation in the emergency department patient was found to be hypothermic and hypotensive with leukocytosis and acute kidney failure consistent with sepsis. Patient also had elevated D- dimer, metabolic encephalopathy, lactic acidosis, hyperkalemia and rhabdomyolysis. Patient was admitted to the hospital service with sepsis, UTI, DOREEN, rhabdomyolysis, acute respiratory failure, metabolic acidosis, acute metabolic encephalopathy. Nephrology, infectious disease and critical care consulted. 07/21: Patient received a total of 4 L normal saline, was started on vasopressin and remains on BiPAP. Patient was on Levophed and D5 normal saline and a bicarbonate drip. D5 normal saline was discontinued. We will obtain a p.m. BMP and serial BMPs. Patient was contacted and the patient is now on AND/DNR. 07/22: Patient received a total of 12 L IV bolus and has been weaned off of Levophed and vasopressin. Patient's kidney function has improved drastically. Patient has been started on scheduled Haldol and we obtained a baseline ECG.she was started on maintenance fluid overnight which was stopped today. Echocardiogram shows moderate pulmonary hypertension. [facility] would like to obtain a CT chest when more stable. RT is titrating BiPAP FiO2 as tolerated and we will assess for nutrition once off BiPAP.Patient now has hypernatremia, hyperchloremia and her BUN/creatinine has decreased to 53/1.4. 07/23/2020; patient is still on BiPAP, agitated and confused. Kidney function improved. Patient was on Haldol and Geodon which did not help. Put the patient on Ativan as needed this morning. I have a long discussion with her yesterday and she does not want any heroic measures to be done. Does not want NG tube to be placed. Patient is DNR/DNI. Patient has UTI and on cefepime. Patient prognosis is guarded. Patient has hypernatremia and placed on D5 0.2% normal saline but no improvement. Hypokalemia, repleted according to electrolyte protocol. Patient prognosis is very poor. Patient is gasping for air. 07/24/2020; patient is on BiPAP, agitated and confused. Sodium is trending up and 163 this morning despite the patient is on D5 W at 125. Family declined NG tube. Patient's family states patient is not alcoholic. UDS is positive for opioid. Patient has delirium and supportive care. On alcohol withdrawal protocol. Patient has UTI and continue with cefepime. Urine culture noted. 07/25: This morning the time my examination patient is on BiPAP therapy and has NG tube to tube feedings. Patient has hypomagnesemic which was repleted and s everely hypokalemic which was also repleted. Patient has hypernatremia and her leukocytosis has improved. Urine culture speciated to Klebsiella and antibiotic regimen has been modified per ID. 07/26: PICC placement for PPN and RT is weaning BiPAP. At the time of my exam she was on 12/12 at 85% FiO2. Patient was hypokalemic today which was repleted. Patient remains hypokalemic in the HIT panel is pending. We will obtain a neurology field consultant B12/folate. LTACH placement is pending per . Patient's mentation is better today and no acute events reported overnight. 07/27: Neurology would like to obtain an EEG and MRI brain without contrast and she completed antibiotic therapy today. Patient noted her increased diuresis which could be immobilizing her volume resuscitation, ATN diuresis or SIADH we will obtain a CT of her head with contrast. RT continues to wean BiPAP therapy. No acute events reported overnight. Patient is hypokalemic and hypomagnesemic today which was repleted. She remains on PPN. 07/28: Overnight the patient has a respiratory and cardiac arrest and a mucous plug was removed. She was intubated and placed on ventilatory support. She is on levophed and sedated with fentanyl. Patient has a MRI B which is pending. [facility] plans to bronch her tomorrow and would like to obtain a CT chest. Patient still feeding will be started on PPN is completed. She will receive LR bolus to replace her output over the past 24 hours. I spoke to the patient's and he has changed her CODE STATUS to AND/DNR which has been updated in the computer and care team has been informed. 07/29: Patient's has chosen to withdraw care and we transition the patient to comfort care per their wishes. Patient has been extubated. Patient will be transferred to the floor with telemetry monitoring. 07/30/20 Withdrawal of Life support Post extubation tachypneic and unresponsive Hospice care to be requested 07/31/20 patient tachypneic and unresponxive Patient prognosis poor D/w 08/01/20 Hospice care to be proposed 08/02/2020 Plan for discharge to hospice. Remains unresponsive. Disposition: [id number] ([facility]) Final Discharge Diagnosis (Prints w/discharge instructions): Septic shock - Discharge Diagnoses (1) Acute metabolic encephalopathy Status: Acute (2) Septic shock Status: Acute Core Measure Documentation - Palliative Care Palliative Care/ Comfort Measures: Hospice Care - Core Measures Any of the following diagnoses?: none Exam - Physical Exam Narrative exam: VITAL SIGNS: Reviewed. GENERAL: Unresponsive HEAD: No signs of head trauma. EYES: Pupils are equal. MOUTH: Oropharynx is normal. NECK: No adenopathy, no JVD. CHEST: Rales bilaterally CARDIAC: normal S1 and S2, without murmurs, gallops, or rubs. ABDOMEN: Soft NEUROLOGIC EXAM: Unresponsive SKIN: No obvious lesions - Constitutional Vitals: Temp Pulse Resp BP Pulse Ox 98.3 F 51 L 24 82/37 100 08/02/20 04:39 08/02/20 12:00 08/02/20 12:00 08/02/20 04:39 08/02/20 12:00 Plan Additional Instructions: Continue hospice care Follow up with: ERNESTO العراقي MD [Primary Care Provider] - 3-5 Days
[2020-08-03 05:54] VITALS: BP 133/80
--- NOTE | 2020-08-03 07:42 | Event Note ---
Date: 08/03/20 I was called by the nurse reporting that 65-year-old Joe Massey , DNR status . When I examined, the patient is unresponsive, pupils dilated and fixed, no cardiopulmonary activity noted Pronounced at 07:27 on 08/03/2020. I informed the attending physician . Called patient's Mr. Joe Smith at [phone] to inform, unable to reach, left a voice message to call back.
--- NOTE | 2020-08-03 09:40 | Death Summary ---
Summary - Providers Consults: 07/20/20 21:01 Consult to Physician [CONS] Urgent Comment: Dr. Ferro spoke with Dr. Orozco @ 2052 Consulting Provider: EDUARDO OROZCO Physician Instructions: Reason For Exam: NEW ONSET RENAL FAILURE, ACIDOSIS 07/20/20 21:54 Consult to Physician [CONS] Urgent Comment: Consulting Provider: SHABBIR MELLO Physician Instructions: Reason For Exam: sepsis, uti, abnl cxr, covid pending 07/21/20 10:36 PICC Line Insertion [Consult to PICC Line RN] [CONS] Routine Reason For Exam: Vasopressor therapy. Type Line:: PICC 07/24/20 18:22 Consult to Dietitian/Nutrition [CONS] Stat Physician Instructions: Reason For Exam: Reason for Consult: Write/Manage Tube Feeding 07/24/20 18:26 Consult to Dietitian/Nutrition [CONS] Routine Physician Instructions: Assess nutrtn needs, initiate, modify, manage TF Reason For Exam: Reason for Consult: Write/Manage Tube Feeding Reason for Consult: Write/Manage Tube Feeding 07/25/20 15:23 Consult to PICC Line RN [CONS] Routine Reason For Exam: PPN Type Line:: PICC 07/26/20 10:07 Consult to Dietitian/Nutrition [CONS] Routine Physician Instructions: Reason For Exam: Reason for Consult: Write/Manage TPN/PPN 07/26/20 14:16 Consult to Physician [CONS] Routine Comment: Consulting Provider: ESTELA WU Physician Instructions: Reason For Exam: AMS Attending: KHURRAM MAYBERRY - summary Date of admission: 07/20/20 22:41 Date of : 08/03/20 Procedures/treatments rendered: This is a 65-year-old female with hepatitis C, migraines and hypertension who had presented to the emergency department on 07/21 with altered mental status after being found on the floor by family members. Upon evaluation in the emergency department patient was found to be hypothermic and hypotensive with leukocytosis and acute kidney failure consistent with sepsis. Patient also had elevated D- dimer, metabolic encephalopathy, lactic acidosis, hyperkalemia and rhabdomyolysis. Patient was admitted to the hospital service with sepsis, UTI, DOREEN, rhabdomyolysis, acute respiratory failure, metabolic acidosis, acute metabolic encephalopathy. Nephrology, infectious disease and critical care consulted. 07/21: Patient received a total of 4 L normal saline, was started on vasopressin and remains on BiPAP. Patient was on Levophed and D5 normal saline and a bicarbonate drip. D5 normal saline was discontinued. We will obtain a p.m. BMP and serial BMPs. Patient was contacted and the patient is now on AND/DNR. 07/22: Patient received a total of 12 L IV bolus and has been weaned off of Levophed and vasopressin. Patient's kidney function has improved drastically. Patient has been started on scheduled Haldol and we obtained a baseline ECG.she was started on maintenance fluid overnight which was stopped today. Echocardiogram shows moderate pulmonary hypertension. [facility] would like to obtain a CT chest when more stable. RT is titrating BiPAP FiO2 as tolerated and we michael l assess for nutrition once off BiPAP.Patient now has hypernatremia, hyperchloremia and her BUN/creatinine has decreased to 53/1.4. 07/23/2020; patient is still on BiPAP, agitated and confused. Kidney function improved. Patient was on Haldol and Geodon which did not help. Put the patient on Ativan as needed this morning. I have a long discussion with her yesterday and she does not want any heroic measures to be done. Does not want NG tube to be placed. Patient is DNR/DNI. Patient has UTI and on cefepime. Patient prognosis is guarded. Patient has hypernatremia and placed on D5 0.2% normal saline but no improvement. Hypokalemia, repleted according to electrolyte protocol. Patient prognosis is very poor. Patient is gasping for air. 07/24/2020; patient is on BiPAP, agitated and confused. Sodium is trending up and 163 this morning despite the patient is on D5 W at 125. Family declined NG tube. Patient's family states patient is not alcoholic. UDS is positive for opioid. Patient has delirium and supportive care. On alcohol withdrawal protocol. Patient has UTI and continue with cefepime. Urine culture noted. 07/25: This morning the time my examination patient is on BiPAP therapy and has NG tube to tube feedings. Patient has hypomagnesemic which was repleted and severely hypokalemic which was also repleted. Patient has hypernatremia and her leukocytosis has improved. Urine culture speciated to Klebsiella and antibiotic regimen has been modified per ID. 07/26: PICC placement for PPN and RT is weaning BiPAP. At the time of my exam she was on 12/12 at 85% FiO2. Patient was hypokalemic today which was repleted. Patient remains hypokalemic in the HIT panel is pending. We will obtain a neurology residential solar consultant B12/folate. LTACH placement is pending per . Patient's mentation is better today and no acute events reported overnight. 07/27: Neurology would like to obtain an EEG and MRI brain without contrast and she completed antibiotic therapy today. Patient noted her increased diuresis which could be immobilizing her volume resuscitation, ATN diuresis or SIADH we will obtain a CT of her head with contrast. RT continues to wean BiPAP therapy. No acute events reported overnight. Patient is hypokalemic and hypomagnesemic today which was repleted. She remains on PPN. 07/28: Overnight the patient has a respiratory and cardiac arrest and a mucous plug was removed. She was intubated and placed on ventilatory support. She is on levophed and sedated with fentanyl. Patient has a MRI B which is pending. [facility] plans to bronch her tomorrow and would like to obtain a CT chest. Patient still feeding will be started on PPN is completed. She will receive LR bolus to replace her output over the past 24 hours. I spoke to the patient's and he has changed her CODE STATUS to AND/DNR which has been updated in the computer and care team has been informed. 07/29: Patient's has chosen to withdraw care and we transition the patient to comfort care per their wishes. Patient has been extubated. Patient will be transferred to the floor with telemetry monitoring. 07/30/20 Withdrawal of Life support Post extubation tachypneic and unresponsive Hospice care to be requested 07/31/20 patient tachypneic and unresponxive Patient prognosis poor D/w 08/01/20 Hospice care to be proposed 08/02/2020 Plan for discharge to hospice. Remains unresponsive. COVID test came out positive so hospice cancelled acceptance. Spouse notified 08/03. Patient became unresponsive and was pronounced at 7:27. I called patients spouse Luis and informed him. Extended my condolence. - Final diagnosis (1) Acute metabolic encephalopathy Note: Final diagnosis: (2) Septic shock Note: Final diagnosis: (3) COVID-19 Note: Final diagnosis:
--- NOTE | 2020-08-03 09:43 | Progress Note ---
Assessment and Plan Assessment and plan: Sepsis Acute respiratory failure S/p cardiac arrest Urinary tract infection with Klebsiella pneumonia Rhabdomyolysis Thrombocytopenia Leukocytosis Acute metabolic encephalopathy Hypertension Hepatitis C Moderate pulmonary hypertension Plan for discharge to hospice COVID 19 test pending - Patient Problems (1) Acute metabolic encephalopathy Current Visit: Yes Status: Acute (2) Septic shock Current Visit: Yes Status: Acute (3) COVID-19 Current Visit: Yes Status: Acute History Interval history: Subjective Date of service: 08/01/20 Principal diagnosis: Sepsis anoxic encephalopathy Interval history: This is a 65-year-old female with hepatitis C, migraines and hypertension who had presented to the emergency department on 07/21 with altered mental status after being found on the floor by family members. Upon evaluation in the emergency department patient was found to be hypothermic and hypotensive with leukocytosis and acute kidney failure consistent with sepsis. Patient also had elevated D- dimer, metabolic encephalopathy, lactic acidosis, hyperkalemia and rhabdomyolysis. Patient was admitted to the hospital service with sepsis, UTI, DOREEN, rhabdomyolysis, acute respiratory failure, metabolic acidosis, acute metabolic encephalopathy. Nephrology, infectious disease and critical care consulted. 07/21: Patient received a total of 4 L normal saline, was started on vasopressin and remains on BiPAP. Patient was on Levophed and D5 normal saline and a bicarbonate drip. D5 normal saline was discontinued. We will obtain a p.m. BMP and serial BMPs. Patient was contacted and the patient is now on AND/DNR. 07/22: Patient received a total of 12 L IV bolus and has been weaned off of Levophed and vasopressin. Patient's kidney function has improved drastically. Patient has been started on scheduled Haldol and we obtained a baseline ECG.she was started on maintenance fluid overnight which was stopped today. Echocardiogram shows moderate pulmonary hypertension. [facility] would like to obtain a CT chest when more stable. RT is titrating BiPAP FiO2 as tolerated and we will assess for nutrition once off BiPAP.Patient now has hypernatremia, hyperchloremia and her BUN/creatinine has decreased to 53/1.4. 07/23/2020; patient is still on BiPAP, agitated and confused. Kidney function improved. Patient was on Haldol and Geodon which did not help. Put the patient on Ativan as needed this morning. I have a long discussion with her yesterday and she does not want any heroic measures to be done. Does not want NG tube to be placed. Patient is DNR/DNI. Patient has UTI and on cefepime. Patient prognosis is guarded. Patient has hypernatremia and placed on D5 0.2% normal saline but no improvement. Hypokalemia, repleted according to electrolyte protocol. Patient prognosis is very poor. Patient is gasping for air. 07/24/2020; patient is on BiPAP, agitated and confused. Sodium is trending up and 163 this morning despite the patient is on D5 W at 125. Family declined NG tube. Patient's family states patient is not alcoholic. UDS is positive for opioid. Patient has delirium and supportive care. On alcohol withdrawal protocol. Patient has UTI and continue with cefepime. Urine culture noted. 07/25: This morning the time my examination patient is on BiPAP therapy and has NG tube to tube feedings. Patient has hypomagnesemic which was repleted and severely hypokalemic which was also repleted. Patient has hypernatremia and her leukocytosis has improved. Urine culture speciated to Klebsiella and antibiotic regimen has been modified per ID. 07/26: PICC placement for PPN and RT is weaning BiPAP. At the time of my exam she was on 12/12 at 85% FiO2. Patient was hypokalemic today which was repleted. Patient remains hypokalemic in the HIT panel is pending. We will obtain a neurology wig sales consultant B12/folate. LTACH placement is pending per . Patient's mentation is better today and no acute events reported overnight. 07/27: Neurology would like to obtain an EEG and MRI brain without contrast and she completed antibiotic therapy today. Patient noted her increased diuresis which could be immobilizing her volume resuscitation, ATN diuresis or SIADH we will obtain a CT of her head with contrast. RT continues to wean BiPAP therapy. No acute events reported overnight. Patient is hypokalemic and hypomagnesemic today which was repleted. She remains on PPN. 07/28: Overnight the patient has a respiratory and cardiac arrest and a mucous plug was removed. She was intubated and placed on ventilatory support. She is on levophed and sedated with fentanyl. Patient has a MRI B which is pending. [facility] plans to bronch her tomorrow and would like to obtain a CT chest. Patient still feeding will be started on PPN is completed. She will receive LR bolus to replace her output over the past 24 hours. I spoke to the patient's and he has changed her CODE STATUS to AND/DNR which has been updated in the computer and care team has been informed. 07/29: Patient's has chosen to withdraw care and we transition the patient to comfort care per their wishes. Patient has been extubated. Patient will be transferred to the floor with telemetry monitoring. 07/30/20 Withdrawal of Life support Post extubation tachypneic and unresponsive Hospice care to be requested 07/31/20 patient tachypneic and unresponxive Patient prognosis poor D/w 08/01/20 Hospice care to be proposed 08/02/2020 Plan for discharge to hospice. Remains unresponsive. COVID test came out positive so hospice cancelled acceptance. Spouse notified Hospitalist Physical - Physical exam Narrative exam: VITAL SIGNS: Reviewed. GENERAL: Unresponsive HEAD: No signs of head trauma. EYES: Pupils are equal. MOUTH: Oropharynx is normal. NECK: No adenopathy, no JVD. CHEST: Rales CARDIAC: normal S1 and S2, without murmurs, gallops, or rubs. ABDOMEN: Soft MUSCULOSKELETAL: No edema NEUROLOGIC EXAM: Unresponsive SKIN: No obvious lesions - Constitutional Vitals: Temp Pulse Resp BP Pulse Ox 98.2 F 89 20 133/80 90 08/03/20 05:53 08/03/20 05:53 08/03/20 05:53 08/03/20 05:53 08/03/20 05:53 HEART Score - HEART Score Troponin: Troponin T 0.026 ng/mL (0.00-0.029) 07/20/20 19:27 Results - Labs CBC & Chem 7: 07/29/20 04:00 07/29/20 04:50 Labs: Laboratory Last Values WBC 10.9 K/mm3 (4.5-11.0) 07/29/20 04:00 RBC 2.43 M/mm3 (3.65-5.03) L 07/29/20 04:00 Hgb 8.3 gm/dl (10.1-14.3) L 07/29/20 04:00 Hct 24.6 % (30.3-42.9) L D 07/29/20 04:00 MCV 101 fl (79-97) H 07/29/20 04:00 MCH 34 pg (28-32) H 07/29/20 04:00 MCHC 34 % (30-34) 07/29/20 04:00 RDW 13.4 % (13.2-15.2) 07/29/20 04:00 Plt Count 113 K/mm3 (140-440) L 07/29/20 04:00 Lymph % (Auto) 9.5 % (13.4-35.0) L 07/25/20 05:15 [place] % (Auto) 2.0 % (0.0-7.3) 07/25/20 05:15 Eos % (Auto) 0.2 % (0.0-4.3) 07/25/20 05:15 Baso % (Auto) 0.1 % (0.0-1.8) 07/25/20 05:15 Lymph # (Auto) 1.1 K/mm3 (1.2-5.4) L 07/25/20 05:15 [place] # (Auto) 0.2 K/mm3 (0.0-0.8) 07/25/20 05:15 Eos # (Auto) 0.0 K/mm3 (0.0-0.4) 07/25/20 05:15 Baso # (Auto) 0.0 K/mm3 (0.0-0.1) 07/25/20 05:15 Add Manual Diff Complete 07/28/20 01:45 Total Counted 100 07/28/20 01:45 Seg Neutrophils % Copper Plate Printer 07/28/20 01:45 Seg Neuts % (Manual) 95.0 % (40.0-70.0) H 07/28/20 01:45 Band Neutrophils % 32.0 % 07/21/20 04:00 Lymphocytes % (Manual) 2.0 % (13.4-35.0) L 07/28/20 01:45 Monocytes % (Manual) 3.0 % (0.0-7.3) 07/28/20 01:45 Nucleated RBC % Not Reportable 07/28/20 01:45 Seg Neutrophils # 10.6 K/mm3 (1.8-7.7) H 07/25/20 05:15 Seg Neutrophils # Man 16.2 K/mm3 (1.8-7.7) H 07/28/20 01:45 Band Neutrophils # 0.0 K/mm3 07/28/20 01:45 Lymphocytes # (Manual) 0.3 K/mm3 (1.2-5.4) L 07/28/20 01:45 Abs React Lymphs (Man) 0.0 K/mm3 07/28/20 01:45 Monocytes # (Manual) 0.5 K/mm3 (0.0-0.8) 07/28/20 01:45 Eosinophils # (Manual) 0.0 K/mm3 (0.0-0.4) 07/28/20 01:45 Basophils # (Manual) 0.0 K/mm3 (0.0-0.1) 07/28/20 01:45 Metamyelocytes # 0.0 K/mm3 07/28/20 01:45 Myelocytes # 0.0 K/mm3 07/28/20 01:45 Promyelocytes # 0.0 K/mm3 07/28/20 01:45 Blast Cells # 0.0 K/mm3 07/28/20 01:45 WBC Morphology Not Reportable 07/28/20 01:45 Hypersegmented Neuts Not Reportable 07/28/20 01:45 Hyposegmented Neuts Not Reportable 07/28/20 01:45 Hypogranular Neuts Not Reportable 07/28/20 01:45 Smudge Cells Not Reportable 07/28/20 01:45 Toxic Granulation Not Reportable 07/28/20 01:45 Toxic Vacuolation Not Reportable 07/28/20 01:45 Dohle Bodies Not Reportable 07/28/20 01:45 Pelger-Huet Anomaly Not Reportable 07/28/20 01:45 Elia Rods Not Reportable 07/28/20 01:45 Platelet Estimate Consistent w auto 07/28/20 01:45 Clumped Platelets Not Reportable 07/28/20 01:45 Plt Clumps, EDTA Not Reportable 07/28/20 01:45 Large Platelets Not Reportable 07/28/20 01:45 Giant Platelets Not Reportable 07/28/20 01:45 Platelet Satelliting Not Reportable 07/28/20 01:45 Plt Morphology Comment Not Reportable 07/28/20 01:45 RBC Morphology Not Reportable 07/28/20 01:45 Dimorphic RBCs Not Reportable 07/28/20 01:45 Polychromasia Few 07/28/20 01:45 Hypochromasia Not Reportable 07/28/20 01:45 Poikilocytosis Not Reportable 07/28/20 01:45 Anisocytosis Few 07/28/20 01:45 Microcytosis Not Reportable 07/28/20 01:45 Macrocytosis Not Reportable 07/28/20 01:45 Spherocytes Not Reportable 07/28/20 01:45 Pappenheimer Bodies Not Reportable 07/28/20 01:45 Sickle Cells Not Reportable 07/28/20 01:45 Target Cells Not Reportable 07/28/20 01:45 Tear Drop Cells Not Reportable 07/28/20 01:45 Ovalocytes Not Reportable 07/28/20 01:45 Helmet Cells Not Reportable 07/28/20 01:45 [place] Bodies Not Reportable 07/28/20 01:45 [place] Rings Not Reportable 07/28/20 01:45 Lorri Cells Not Reportable 07/28/20 01:45 Bite Cells Not Reportable 07/28/20 01:45 Crenated Cell Not Reportable 07/28/20 01:45 Elliptocytes Not Reportable 07/28/20 01:45 Acanthocytes (Spur) Not Reportable 07/28/20 01:45 Rouleaux Not Reportable 07/28/20 01:45 Hemoglobin C Crystals Not Reportable 07/28/20 01:45 Schistocytes Not Reportable 07/28/20 01:45 Malaria parasites Not Reportable 07/28/20 01:45 Junior Bodies Not Reportable 07/28/20 01:45 Hem Pathologist Commnt No 07/28/20 01:45 PT 20.1 Sec. (12.2-14.9) H 07/20/20 19:32 INR 1.72 (0.87-1.13) H 07/20/20 19:32 APTT 33.7 Sec. (24.2-36.6) 07/20/20 19:32 D-Dimer 2098.49 ng/mlDDU (0-234) H 07/20/20 21:59 Heparin Anti-Xa, Unfract Negative (Negative) 07/25/20 14:35 ABG pH 7.461 (7.320-7.450) H 07/29/20 04:00 POC ABG pCO2 46.1 mmHg (32.0-48.0) 07/29/20 04:00 POC ABG pO2 101.1 mmHg (83-108) 07/29/20 04:00 POC ABG HCO3 32.1 07/29/20 04:00 ABG O2 Saturation 97.6 (0-100) 07/29/20 04:00 POC ABG Base Excess 7.5 07/29/20 04:00 ABG Hemoglobin 8.9 (12.0-17.5) L 07/29/20 04:00 ABG Oxyhemoglobin 95.9 (94-98) 07/29/20 04:00 ABG Methemoglobin 0.3 (0.0-1.5) 07/29/20 04:00 ABG Sodium 139.4 mmol/L (136.0-145.0) 07/29/20 04:00 ABG Potassium 3.8 mmol/L (3.40-4.50) 07/29/20 04:00 ABG Chloride 106.0 mmol/L (98-107) 07/29/20 04:00 ABG Glucose 128 mg/dL (65-95) H 07/29/20 04:00 Carboxyhemoglobin 1.4 (0.5-1.5) 07/29/20 04:00 FiO2 % 35 07/29/20 04:00 Sodium 144 mmol/L (137-145) 07/29/20 04:50 Potassium 4.1 mmol/L (3.6-5.0) 07/29/20 04:50 Chloride 105.6 mmol/L (98-107) 07/29/20 04:50 Carbon Dioxide 34 mmol/L (22-30) H 07/29/20 04:50 Anion Gap 9 mmol/L 07/29/20 04:50 BUN 19 mg/dL (7-17) H 07/29/20 04:50 Creatinine 0.4 mg/dL (0.6-1.2) L 07/29/20 04:50 Estimated GFR > 60 ml/min 07/29/20 04:50 BUN/Creatinine Ratio 48 % 07/29/20 04:50 Glucose 115 mg/dL (65-100) H 07/29/20 04:50 POC Glucose 112 mg/dL (70-105) H 07/29/20 11:21 Lactic Acid 1.90 mmol/L (0.7-2.0) 07/20/20 21:59 Calcium 7.7 mg/dL (8.4-10.2) L 07/29/20 04:50 Phosphorus 2.70 mg/dL (2.5-4.5) 07/29/20 04:50 Magnesium 1.60 mg/dL (1.7-2.3) L 07/29/20 04:50 Ferritin 1648.0 ng/mL (10.0-200.0) H 07/20/20 21:59 Total Bilirubin 0.20 mg/dL (0.1-1.2) 07/28/20 01:45 Direct Bilirubin < 0.2 mg/dL (0-0.2) 07/23/20 17:33 Indirect Bilirubin 0.3 mg/dL 07/23/20 17:33 AST 26 units/L (5-40) 07/28/20 01:45 ALT 36 units/L (7-56) 07/28/20 01:45 Alkaline Phosphatase 80 units/L (35-129) 07/28/20 01:45 Ammonia 39.0 umol/L (25-60) 07/23/20 17:33 Lactate Dehydrogenase 732 units/L (91-180) H 07/20/20 21:59 Total Creatine Kinase 227 units/L (30-135) H 07/28/20 04:40 CK-MB (CK-2) 289.0 ng/mL (0.0-4.0) H 07/20/20 19:27 CK-MB (CK-2) Rel Index 2.0 (0-4) 07/20/20 19:27 Troponin T 0.026 ng/mL (0.00-0.029) 07/20/20 19:27 C-Reactive Protein 37.90 mg/dL (0.00-1.30) H 07/20/20 21:59 Total Protein 4.6 g/dL (6.3-8.2) L 07/28/20 01:45 Albumin 2.2 g/dL (3.9-5) L 07/28/20 01:45 Albumin/Globulin Ratio 0.9 % 07/28/20 01:45 Prealbumin 0.079 g/L (0.200-0.400) L 07/27/20 18:35 Triglycerides 109 mg/dL (2-149) 07/27/20 04:00 Vitamin B1 25 nmol/L (8-30) 07/27/20 18:35 Vitamin B12 1123 pg/mL (211-911) H 07/27/20 18:35 Folate 18.55 ng/mL (7.3-26.0) 07/27/20 18:35 Procalcitonin 40.67 ng/mL (<0.15) 07/20/20 21:59 TSH 1.130 mlU/mL (0.270-4.200) 07/27/20 18:35 Free T4 0.87 ng/dL (0.76-1.46) 07/20/20 19:27 Arterial Blood Glucose 128 mg/dL (65-95) H 07/29/20 04:00 Arterial Blood Ionized Calcium 4.3 mg/dL (4.6-5.3) L 07/29/20 04:00 Urine Color Yellow (Yellow) 07/21/20 Unknown Urine Turbidity Cloudy (Clear) 07/21/20 Unknown Urine pH 5.0 (5.0-7.0) 07/21/20 Unknown Ur Specific [place] 1.013 (1.003-1.030) 07/21/20 Unknown Urine Protein 30 mg/dl mg/dL (Negative) 07/21/20 Unknown Urine Glucose (UA) Neg mg/dL (Negative) 07/21/20 Unknown Urine Ketones Neg mg/dL (Negative) 07/21/20 Unknown Urine Blood Lg (Negative) 07/21/20 Unknown Urine Nitrite Neg (Negative) 07/21/20 Unknown Urine Bilirubin Neg (Negative) 07/21/20 Unknown Urine Urobilinogen < 2.0 mg/dL (<2.0) 07/21/20 Unknown Ur Leukocyte Esterase Sm (Negative) 07/21/20 Unknown Urine WBC (Auto) 28.0 /HPF (0.0-6.0) H 07/21/20 Unknown Urine RBC (Auto) 89.0 /HPF (0.0-6.0) 07/21/20 Unknown U Epithel Cells (Auto) 1.0 /HPF (0-13.0) 07/21/20 Unknown Urine WBC Clumps 2+ /HPF 07/21/20 Unknown Hyaline Casts 9 /LPF 07/21/20 Unknown Urine Mucus Few /HPF 07/21/20 Unknown Urine Yeast (Budding) 3+ /HPF 07/20/20 19:52 Urine Eosinophils None seen (None Seen) 07/21/20 Unknown Urine Creatinine 40.4 mg/dL (0.1-20.0) H 07/26/20 07:14 Urine Sodium 10 mmol/L 07/21/20 Unknown Urine Potassium 32.12 mmol/L 07/26/20 07:14 Urine Chloride 119.0 mmolL (110-250) 07/26/20 07:14 Random Vancomycin 4.7 ug/mL (0-40.0) 07/22/20 06:27 Urine Opiates Screen Positive 07/20/20 19:52 Urine Methadone Screen Negative 07/20/20 19:52 Ur Barbiturates Screen Negative 07/20/20 19:52 Ur Phencyclidine Scrn Negative 07/20/20 19:52 Ur Amphetamines Screen Negative 07/20/20 19:52 U Benzodiazepines Scrn Positive 07/20/20 19:52 Urine Cocaine Screen Negative 07/20/20 19:52 U Marijuana (THC) Screen Negative 07/20/20 19:52 Drugs of Abuse Note Disclamer 07/20/20 19:52 Proteinase 3 (PR3) Ab <1.0 AI (<1.0) 07/21/20 09:56 Myeloperoxidase Ab <1.0 AI (<1.0) 07/21/20 09:56 Heparin-induced Plt Ab Negative (Negative) 07/25/20 14:35 UF Heparin High Dose 0 % Release 07/25/20 14:35 VIKTOR UFH Low Dose 0.1 0 % Release 07/25/20 14:35 VIKTOR UFH Low Dose 0.5 0 % Release 07/25/20 14:35 Complement C3 106 mg/dL (83-193) 07/21/20 09:56 Complement C4 21 mg/dL (15-57) 07/21/20 09:56 Coronavirus (PCR) Positive (Negative) A 08/02/20 10:15 Hepatitis A IgM Ab Non-reactive (NonReactive) 07/23/20 17:33 Hep Bs Antigen Non-reactive (Negative) 07/23/20 17:33 Hep B Core IgM Ab Non-reactive (NonReactive) 07/23/20 17:33 Hepatitis C Antibody Reactive (NonReactive) A 07/23/20 17:33 Blood Type O POSITIVE 07/20/20 23:15 Antibody Screen Negative 07/20/20 23:15 Russell/IV: Voiding Method Indwelling Catheter Active Medications - Current Medications Current Medications: Generic Name Dose Route Start Last Admin Trade Name Freq PRN Reason Stop Dose Admin Acetaminophen 650 mg 07/31/20 06:01 08/01/20 17:12 Acetaminophen 650 Mg Rect Supp MA 650 mg Q6H PRN Administration Pain, Mild (1-3) Glycopyrrolate 0.2 mg 07/29/20 13:19 Glycopyrrolate 0.4 Mg/2 Ml Inj IV Q4H PRN Secretions Hydralazine HCl 5 mg 07/30/20 05:50 07/30/20 13:57 Hydralazine 20 Mg/1 Ml Inj IV 5 mg Q4H PRN Administration FOR SBP GREATER THAN 160. Lorazepam 2 mg 07/29/20 13:19 07/30/20 01:31 Lorazepam 2 Mg/Ml Vial IV 2 mg Q1H PRN Administration anxiety/insomnia Morphine Sulfate 2 mg 07/29/20 14:00 07/30/20 17:12 Morphine 2 Mg/1 Ml Inj IV 2 mg Q1H PRN Administration mod pain or comfort measures Nutrition/Malnutrition Assess - Dietary Evaluation Nutrition/Malnutrition Findings: Nutrition Notes Start: 07/22/20 12:24 Freq: Status: Active Protocol: Document 08/01/20 14:00 AGUSTÍN (Rec: 08/01/20 14:01 AGUSTÍN [id number]) Nutrition Notes Initial or Follow up Brief Note Current Diet NPO Subjective/Other Information Pt extubated on 07/30 and withdrawal of care forms signed. Pt with poor prognosis; comfort care measures only. Nutrition Intervention Revisit per MD consult or patient Sign Off request:
== END 2020-08-03 07:12 | DRG 871 ==
LOC: ED 18:41 → CC1 22:41 → 3A 07-29 18:31 → CC1 07-29 18:32 → 3A 07-29 18:40
PROVIDERS: ADMIT Hospitalist; ATTEND Internal Medicine
PROC: 06HY33Z Insertion of Infusion Device into Lower Vein, Percutaneous Approach (ICD-10-PCS; 2020-07-20)
PROC: 4A033R1 Measurement of Arterial Saturation, Peripheral, Percutaneous Approach (ICD-10-PCS; 2020-07-21)
PROC: 5A09557 Assistance with Respiratory Ventilation, Greater than 96 Consecutive Hours, Continuous Positive Airway Pressure (ICD-10-PCS; 2020-07-21)
PROC: 02HV33Z Insertion of Infusion Device into Superior Vena Cava, Percutaneous Approach (ICD-10-PCS; 2020-07-26)
PROC: 0BH17EZ Insertion of Endotracheal Airway into Trachea, Via Natural or Artificial Opening (ICD-10-PCS; principal; 2020-07-28)
PROC: 5A1945Z Respiratory Ventilation, 24-96 Consecutive Hours (ICD-10-PCS; 2020-07-28)
DX: A41.89 Other specified sepsis (principal); R65.21 Severe sepsis with septic shock; G93.41 Metabolic encephalopathy; U07.1 COVID-19; J12.82 Pneumonia due to coronavirus disease 2019; I63.9 Cerebral infarction, unspecified; J96.01 Acute respiratory failure with hypoxia; N39.0 Urinary tract infection, site not specified; N17.9 Acute kidney failure, unspecified; M62.82 Rhabdomyolysis; E87.0 Hyperosmolality and hypernatremia; E16.2 Hypoglycemia, unspecified; E86.0 Dehydration; E87.5 Hyperkalemia; G43.909 Migraine, unspecified, not intractable, without status migrainosus; I10 Essential (primary) hypertension; Z66 Do not resuscitate; I27.20 Pulmonary hypertension, unspecified; E87.8 Other disorders of electrolyte and fluid balance, not elsewhere classified; R56.9 Unspecified convulsions; B18.2 Chronic viral hepatitis C; R68.0 Hypothermia, not associated with low environmental temperature; D69.6 Thrombocytopenia, unspecified; B96.1 Klebsiella pneumoniae [K. pneumoniae] as the cause of diseases classified elsewhere; I46.9 Cardiac arrest, cause unspecified; Z91.041 Radiographic dye allergy status; Z79.899 Other long term (current) drug therapy
CPT/HCPCS: 31500; 36415; 36600; 70450; 70551; 71045; 72125; 74018; 80048; 80053; 80074; 80076; 80202; 80307; 81001; 82140; 82436; 82550; 82553; 82565; 82570; 82607; 82728; 82747; 82805; 82947; 82962; 83615; 83735; 84100; 84132; 84133; 84134; 84145; 84300; 84425; 84439; 84443; 84478; 84484; 85007; 85025; 85027; 85379; 85610; 85730; 86021; 86022; 86140; 86160; 86850; 86900; 86901; 87040; 87076; 87086; 87186; 87205; 89050; 92950; 93005; 93306; 94003; 94640; 94660; 96365; 96367; 96375; G0378; C9113; J0171; J0360; J0461; J0610; J0692; J0696; J1100; J1170; J1630; J1644; J1815; J2060; J2250; J2270; J3010; J3370; J3411; J3475; J3480; J3486; J7030; J7040; J7042; J7050; J7070; J7120; U0003